=== PATIENT | female | born 1980 | race Two or more races ===

== ENCOUNTER 2018-05-21 15:01 | Emergency (ER) | payer OTHER ==
[~2018-05-21] VITALS: Ht 167.6 cm; Wt 81.2 kg
[2018-05-21 15:05] VITALS: BP 104/56
--- NOTE | 2018-05-21 15:16 | Emergency Room Report ---
History of Present Illness General Chief Complaint: General Complaint Source: Patient Present Illness HPI 37-year-old female history of alcohol abuse brought in by EMS for apparent not being able to care for herself Patient states that she has had heavy drinking since the age of 20, she states that she had vomited blood and was hospitalized at [facility] and was just discharged last week. She states that the social media marketing specialist and someone else came to her home and wanted her to be "placed on a hold"as she is not able to care for herself She denies any history of psychiatric disease, no SI or HI EMS states that she has been having swollen legs and unable to walk. Patient states that her swollen legs have been developing since her last admission and the reporting compression stockings on her. States that she is not on water pills. Only complaint patient is stating is her swollen legs at this time. States that she does not want to return [facility] but states that she is open to having a home health nurse come to her house and also physical therapist come to her house Her last drink was one month ago Allergies: Coded Allergies: LORAZEPAM (Verified Allergy, Unknown, 05/21/18) PENICILLINS (Verified Allergy, Unknown, 05/21/18) Patient History Past Medical History: see triage record Past Surgical History: none Pertinent Family History: none Social History: Reports: alcohol use Last Menstrual Period: 3 months ago Reviewed Nursing Documentation: PMH: Agreed; PSxH: Agreed Nursing Documentation-PMH Hx Asthma: Yes Hx Cerebrovascular Accident: Yes Physical Exam Vital Signs Date Time Temp Pulse Resp B/P (MAP) Pulse Ox O2 Delivery O2 Flow Rate FiO2 05/21/18 14:55 98.0 93 18 104/56 99 Room Air 98.1 Sp02 EP Interpretation: reviewed, normal General Appearance: alert, GCS 15, non-toxic, mild distress Head: normocephalic, atraumatic Eyes: bilateral eye PERRL, bilateral eye EOMI, bilateral eye scleral icterus ENT: normal ENT inspection, normal pharynx, normal voice, moist mucus membranes Neck: normal inspection, full range of motion, supple Respiratory: normal inspection, lungs clear, normal breath sounds, no respiratory distress, no retraction, no wheezing, speaking full sentences, chest symmetrical Cardiovascular #1: normal inspection, regular rate, rhythm, normal capillary refill Cardiovascular #2: 2+ radial (R), 2+ radial (L) Gastrointestinal: normal inspection, non tender, soft, non-distended, no guarding Musculoskeletal: other - 2+ edema bilateral lower extremities no calf tenderness full range of motion nontender Neurologic: normal inspection, alert, oriented x3, responsive, motor strength/ tone normal, sensory intact, normal gait, speech normal Psychiatric: normal inspection, judgement/insight normal, memory normal Skin: normal inspection, normal color, no rash, warm/dry, well hydrated, normal turgor Medical Decision Making Diagnostic Impression: Primary Impression: Anemia Additional Impressions: Coagulopathy History of alcohol abuse UTI (urinary tract infection) Hypokalemia ER Course 37-year-old female history of alcohol abuse, brought in by EMS for apparent not being able to care for herself DDX: Swollen legs: Possible secondary to fluid overload/possible liver cirrhosis from alcoholism Dehydrational electrolyte disturbance. At this time not exhibiting any psychiatric signs or symptoms Plan: Obtain labs, ua, EKG, CXR Vascular studies ER course: pt given potassium supplementation also ceftriaxone for UTI Disposition: Patient is to be xferred 2/[address] Whyte who has accepted pt for admission Please note that this Emergency Department Report was dictated using [employer] shift lead technology software, occasionally this can lead to erroneous entry secondary to interpretation by the dictation equipment. EKG Diagnostic Results EP Interpretation: Yes Rate: normal Rhythm: NSR ST Segments: No acute changes ASA given to patient: No Rhythm Strip EP Interpretation: Yes Rate: 88 Rhythm: NSR, no PVCs, no ectopy Chest X-ray CXR: Ordered: Yes 1 view Indication weakness EP interpretation: Yes Interpretation: mild cardiomegaly Impression: No acute disease Electronically signed by Gio Lopez MD Laboratory Tests Test 05/21/18 15:40 05/21/18 15:45 White Blood Count 7.6 K/UL (4.8-10.8) Red Blood Count 2.59 M/UL (4.20-5.40) L Hemoglobin 8.2 G/DL (12.0-16.0) L Hematocrit 25.8 % (37.0-47.0) L Mean Corpuscular Volume 99 FL (80-99) Mean Corpuscular Hemoglobin 31.7 PG (27.0-31.0) H Mean Corpuscular Hemoglobin Concent 32.0 G/DL (32.0-36.0) Red Cell Distribution Width 14.8 % (11.6-14.8) Platelet Count 83 K/UL (150-450) L Mean Platelet Volume 8.3 FL (6.5-10.1) Neutrophils (%) (Auto) % (45.0-75.0) Lymphocytes (%) (Auto) % (20.0-45.0) Monocytes (%) (Auto) % (1.0-10.0) Eosinophils (%) (Auto) % (0.0-3.0) Basophils (%) (Auto) % (0.0-2.0) Differential Total Cells Counted 100 Neutrophils % (Manual) 62 % (45-75) Lymphocytes % (Manual) 26 % (20-45) Monocytes % (Manual) 9 % (1-10) Eosinophils % (Manual) 2 % (0-3) Basophils % (Manual) 1 % (0-2) Band Neutrophils 0 % (0-8) Platelet Estimate Decreased L Platelet Morphology Normal Hypochromasia 1+ Anisocytosis 1+ Prothrombin Time 19.2 SEC (9.30-11.50) H Prothrombin Time INR 1.9 (0.9-1.1) H PTT 37 SEC (23-33) H Sodium Level 137 MMOL/L (136-145) Potassium Level 2.5 MMOL/L (3.5-5.1) *L Chloride Level 105 MMOL/L (98-107) Carbon Dioxide Level 25 MMOL/L (21-32) Anion Gap 5 mmol/L (5-15) Blood Urea Nitrogen 2 mg/dL (7-18) L Creatinine 0.7 MG/DL (0.55-1.30) Estimate Glomerular Filtration Rate > 60 mL/min (>60) Glucose Level 74 MG/DL (74-106) Calcium Level 8.1 MG/DL (8.5-10.1) L Total Bilirubin 5.3 MG/DL (0.2-1.0) H Direct Bilirubin 3.9 MG/DL (0.0-0.3) H Aspartate Amino Transferase (AST) 56 U/L (15-37) H Alanine Aminotransferase (ALT) 28 U/L (12-78) Alkaline Phosphatase 144 U/L (46-116) H Total Creatine Kinase 69 U/L (26-308) Pro-B-Type Natriuretic Peptide 429 pg/mL (0-125) H Total Protein 6.2 G/DL (6.4-8.2) L Albumin 1.8 G/DL (3.4-5.0) L Globulin 4.4 g/dL Albumin/Globulin Ratio 0.4 (1.0-2.7) L Urine Color Yellow Urine Appearance Clear Urine pH 8 (4.5-8.0) Urine Specific [place] 1.010 (1.005-1.035) Urine Protein Negative (NEGATIVE) Urine Glucose (UA) Negative (NEGATIVE) Urine Ketones Negative (NEGATIVE) Urine Occult Blood Negative (NEGATIVE) Urine Nitrite Negative (NEGATIVE) Urine Bilirubin Negative (NEGATIVE) Urine Urobilinogen 4 MG/DL (0.0-1.0) H Urine Leukocyte Esterase 2+ (NEGATIVE) H Urine RBC 0-2 /HPF (0 - 2) Urine WBC 5-10 /HPF (0 - 2) H Urine Squamous Epithelial Cells Moderate /LPF (NONE/OCC) H Urine Amorphous Sediment Few /LPF (NONE) H Urine Bacteria Moderate /HPF (NONE) H Urine HCG, Qualitative Negative (NEGATIVE) Last Vital Signs Date Time Temp Pulse Resp B/P (MAP) Pulse Ox O2 Delivery O2 Flow Rate FiO2 05/21/18 14:55 98.0 93 18 104/56 99 Room Air 98.1 Disposition: ER T-[facility] Condition: Serious RetinoGio M.D. May 21, 2018 15:16
--- NOTE | 2018-05-21 15:51 | Diagnostic Imaging Report ---
Indication: Chest pain Technique: XRAY Chest 1v Comparison: None Findings: Heart size within normal limits for technique. There is linear opacity at the left base which may be related to subsegmental atelectasis. No pleural effusion or pneumothorax. No acute osseous abnormality. IMPRESSION: Linear opacity at the left base possibly related to subsegmental atelectasis. Clinical correlation/follow-up recommended to exclude the possibility of developing infectious infiltrate.
[2018-05-21 16:08] LABS: HEMATOCRIT 25.8 % (37.0-47.0); HEMOGLOBIN 8.2 G/DL (12.0-16.0); MEAN CORPUSCULAR VOLUME 99 FL (80-99); PLATELET COUNT 83 K/UL (150-450); RED BLOOD COUNT 2.59 M/UL (4.20-5.40); RED CELL DISTRIBUTION WIDTH 14.8 % (11.6-14.8); WHITE BLOOD COUNT 7.6 K/UL (4.8-10.8)
[2018-05-21 16:24] LABS: INR 1.9 (0.9-1.1)
[2018-05-21 16:31] LABS: APPEARANCE,URINE CLEAR; BILIRUBIN, URINE NEGATIVE (NEGATIVE); GLUCOSE, URINE (UA) NEGATIVE (NEGATIVE); KETONES,URINE NEGATIVE (NEGATIVE); LEUKOCYTE ESTERASE ,URINE 2+ (NEGATIVE); NITRITE,URINE NEGATIVE (NEGATIVE); PH,URINE 8 (4.5-8.0); PROTEIN,URINE NEGATIVE (NEGATIVE); UROBILINOGEN,URINE 4 MG/DL (0.0-1.0)
[2018-05-21 16:33] LABS: COLOR,URINE YELLOW
[2018-05-21 16:38] LABS: ALANINE AMINOTRANSFERASE 28 U/L (12-78); ALBUMIN 1.8 G/DL (3.4-5.0); ALBUMIN/GLOBULIN RATIO 0.4 (1.0-2.7); ALKALINE PHOSPHATASE 144 U/L (46-116); ANION GAP 5 mmol/L (5-15); ASPARTATE AMINO TRANSFERASE 56 U/L (15-37); BILIRUBIN,TOTAL 5.3 MG/DL (0.2-1.0); BLOOD UREA NITROGEN 2 mg/dL (7-18); CALCIUM 8.1 MG/DL (8.5-10.1); CARBON DIOXIDE 25 MMOL/L (21-32); CHLORIDE 105 MMOL/L (98-107); CREATINE KINASE 69 U/L (26-308); CREATININE 0.7 MG/DL (0.55-1.30); SODIUM 137 MMOL/L (136-145)
[2018-05-21 16:40] LABS: POTASSIUM 2.5 MMOL/L (3.5-5.1)
[2018-05-21 16:43] LABS: BILIRUBIN,DIRECT 3.9 MG/DL (0.0-0.3)
[2018-05-21 16:59] VITALS: BP 110/62
[2018-05-21] MEDS ORDERED: cefTRIAXone 1 GM in NS 55 ML IVPB ONE (17:00)
[2018-05-21 18:45] VITALS: BP 112/66
[2018-05-21 20:18] VITALS: BP 110/61
[2018-05-21 20:20] VITALS: BP 110/61
--- NOTE | 2018-05-22 11:00 | Diagnostic Imaging Report ---
APPROVED REPORT CPT Code: 29054 Present Symptoms Lower Extremity Pain: Bilateral BILATERAL: Imaging reveals a patent deep venous system bilaterally. There is no evidence of thrombus within the femoral, popliteal or tibial segments. The greater saphenous veins are also within normal limits. Doppler indicates normal spontaneous flow within these segments.
--- NOTE | 2018-05-22 16:24 | Cardiology Report ---
APPROVED REPORT EKG Measurement Heart [id number] Normal sinus rhythm Nonspecific T wave abnormality Prolonged QT Abnormal ECG
== END 2018-05-21 20:20 | disposition short-term general hospital (02) ==
LOC: EDBD 15:01 → EMR 16:12
DX: D64.9 Anemia, unspecified (principal); N39.0 Urinary tract infection, site not specified; E87.6 Hypokalemia; D68.9 Coagulation defect, unspecified; F10.10 Alcohol abuse, uncomplicated; J45.909 Unspecified asthma, uncomplicated; Z86.73 Personal history of transient ischemic attack (TIA), and cerebral infarction without residual deficits; Z88.0 Allergy status to penicillin; Z88.8 Allergy status to other drugs, medicaments and biological substances
CPT/HCPCS: 36415; 71045; 80053; 81003; 81025; 82248; 82550; 83880; 85007; 85025; 85610; 85730; 87086; 87181; 93005; 93970; 96365; 96367; 99283; J0696; J3480; J8499

== ENCOUNTER 2018-07-16 02:22 | Inpatient (IN) | payer OTHER ==
[2018-07-16] VITALS (7 sets, daily range): BP systolic 114–133; BP diastolic 59–81
[~2018-07-16] VITALS: Ht 175.3 cm; Wt 122.9 kg
--- NOTE | 2018-07-16 02:35 | Emergency Room Report ---
History of Present Illness General Chief Complaint: Altered Level of Consciousness Source: Family Member, EMS Present Illness HPI According to family members patient had a ground-level fall. She's been acting strangely after that. Paramedics stated she was oriented to person and events but had to be asked 5 times where she is. They transported the patient BLS to our facility. She has a history of alcohol ingestion. In addition there is a prior history of stroke. The patient is not answering questions at this time. Patient was evaluated here in May. At that time she had hypokalemia, UTI, anemia, UGI bleed and evidence of liver failure with edema. She was transferred to another hospital. Mom states she did not get blood. 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 Mom also states no more vomiting of blood or back stools. No recent seizures. Mom unsure when last EtOH was. Patient unable to answer questions. Allergies: Coded Allergies: LORAZEPAM (Verified Allergy, Unknown, 05/21/18) PENICILLINS (Verified Allergy, Unknown, 05/21/18) Patient History Limited by: medical condition Past Medical History: see triage record, old chart reviewed Social History: Reports: alcohol use Social History Narrative lives with her mother Last Menstrual Period: unknown Reviewed Nursing Documentation: PMH: Agreed; PSxH: Agreed Nursing Documentation-PMH Hx Asthma: Yes Hx Cerebrovascular Accident: Yes Review of Systems All Other Systems: limited Physical Exam Vital Signs Date Time Temp Pulse Resp B/P (MAP) Pulse Ox O2 Delivery O2 Flow Rate FiO2 07/16/18 02:14 98.5 100 18 98 Room Air 98.4 Sp02 EP Interpretation: reviewed, normal General Appearance: no apparent distress, lethargic, other - Morning Head: normocephalic, atraumatic Eyes: bilateral eye PERRL, bilateral eye scleral icterus ENT: moist mucus membranes Neck: supple Respiratory: lungs clear, normal breath sounds Cardiovascular #1: regular rate, rhythm, edema Cardiovascular #2: 2+ radial (R) Gastrointestinal: normal inspection, normal bowel sounds, non tender, distended Rectal: heme positive stool - trace = brown Musculoskeletal: back normal, gait/station normal, normal range of motion Neurologic: motor weakness - diffuse, other - moaning and not answering questions. Not open eyes to command Psychiatric: other - lethargic Skin: warm/dry, jaundice Medical Decision Making Diagnostic Impression: Primary Impression: Altered level of consciousness Additional Impressions: Liver failure Qualified Codes: K72.01 - Acute and subacute hepatic failure with coma Anemia Qualified Codes: D64.9 - Anemia, unspecified GI bleed Qualified Codes: K92.2 - Gastrointestinal hemorrhage, unspecified Hepatic encephalopathy Hypokalemia ER Course Patient presents with altered level of consciousness after ground-level fall. Differential includes brain bleed, contusion, acute alcohol intoxication, other toxic substances, electrolyte imbalance, hepatic encephalopathy amongst others. The patient will be evaluated with EKG, CT the head, chest x-ray and labs. She will receive IV hydration. She is protecting her airway at this time. Thiamine given. Protonix given. Vitamin K given. Blood bank made aware of type and Rh. WBC slightly high. H/H low (similar to May). Potassium critically low. Patient made non-transferrable. Discussed with Dr. Carrillo. Ammonia high. Lactulose give. Potassium given. NG tube passed as not taking oral meds voluntarily. Confirmed by abd film. Admit telemetry Dr. Choudhury. Laboratory Tests Test 07/16/18 03:00 07/16/18 03:40 White Blood Count 12.4 K/UL (4.8-10.8) H Red Blood Count 2.50 M/UL (4.20-5.40) L Hemoglobin 8.0 G/DL (12.0-16.0) L Hematocrit 24.2 % (37.0-47.0) L Mean Corpuscular Volume 97 FL (80-99) Mean Corpuscular Hemoglobin 31.9 PG (27.0-31.0) H Mean Corpuscular Hemoglobin Concent 33.0 G/DL (32.0-36.0) Red Cell Distribution Width 15.4 % (11.6-14.8) H Platelet Count 75 K/UL (150-450) L Mean Platelet Volume 8.0 FL (6.5-10.1) Neutrophils (%) (Auto) % (45.0-75.0) Lymphocytes (%) (Auto) % (20.0-45.0) Monocytes (%) (Auto) % (1.0-10.0) Eosinophils (%) (Auto) % (0.0-3.0) Basophils (%) (Auto) % (0.0-2.0) Sodium Level 140 MMOL/L (136-145) Potassium Level 1.5 MMOL/L (3.5-5.1) *L Chloride Level 100 MMOL/L (98-107) Carbon Dioxide Level 34 MMOL/L (21-32) H Anion Gap 6 mmol/L (5-15) Blood Urea Nitrogen 3 mg/dL (7-18) L Creatinine 0.9 MG/DL (0.55-1.30) Estimate Glomerular Filtration Rate > 60 mL/min (>60) Glucose Level 110 MG/DL (74-106) H Calcium Level 7.9 MG/DL (8.5-10.1) L Total Bilirubin 18.1 MG/DL (0.2-1.0) H Direct Bilirubin 12.7 MG/DL (0.0-0.3) H Aspartate Amino Transferase (AST) 104 U/L (15-37) H Alanine Aminotransferase (ALT) 17 U/L (12-78) Alkaline Phosphatase 140 U/L (46-116) H Ammonia 140 umol/L (11-32) H Total Creatine Kinase 105 U/L (26-308) Total Protein 7.1 G/DL (6.4-8.2) Albumin 1.7 G/DL (3.4-5.0) L Globulin 5.4 g/dL Albumin/Globulin Ratio 0.3 (1.0-2.7) L Salicylates Level < 0.2 ug/mL (2.8-20) L Acetaminophen Level < 2 MCG/ML (10-30) L Serum Alcohol < 3 mg/dL Urine Color Yellow Urine Appearance Clear Urine pH 8 (4.5-8.0) Urine Specific [place] 1.010 (1.005-1.035) Urine Protein 1+ (NEGATIVE) H Urine Glucose (UA) Negative (NEGATIVE) Urine Ketones Negative (NEGATIVE) Urine Blood 1+ (NEGATIVE) H Urine Nitrite Negative (NEGATIVE) Urine Bilirubin 3+ (NEGATIVE) H Urine Ictotest Positive (NEGATIVE) Urine Urobilinogen 12 MG/DL (0.0-1.0) H Urine Leukocyte Esterase 1+ (NEGATIVE) H Urine RBC 2-4 /HPF (0 - 2) H Urine WBC 0-2 /HPF (0 - 2) Urine Squamous Epithelial Cells Few /LPF (NONE/OCC) Urine Bacteria None /HPF (NONE) Urine HCG, Qualitative Negative (NEGATIVE) Urine Opiates Screen Negative (NEGATIVE) Urine Barbiturates Screen Negative (NEGATIVE) Phencyclidine (PCP) Screen Negative (NEGATIVE) Urine Amphetamines Screen Negative (NEGATIVE) Urine Benzodiazepines Screen Negative (NEGATIVE) Urine Cocaine Screen Negative (NEGATIVE) Urine Marijuana (THC) Screen Negative (NEGATIVE) EKG Diagnostic Results Rate: normal Rhythm: NSR ST Segments: no acute changes Rhythm Strip Diag. Results EP Interpretation: yes Rhythm: NSR, no PVC's, no ectopy Chest X-Ray Diagnostic Results Chest X-Ray Diagnostic Results : Chest X-Ray Ordered: Yes # of Views/Limited/Complete: 1 View Indication: Other EP Interpretation: Yes Interpretation: no consolidation, no pneumothorax, other - inc cor and R effusion Impression: Other Electronically Signed by: Electronically signed by Jean Ríos MD Other X-Ray Diagnostic Results Other X-Ray Diagnostic Results : # of Views/Limited Vs Complete: 1 View Indication: Other EP Interpretation: Yes Interpretation: nonspecific bowel gas, no sbo, other - NG in stomach Impression: Other Electronically Signed by: Jean Ríos MD CT/MRI/US Diagnostic Results CT/MRI/US Diagnostic Results : Imaging Test Ordered: head Impression no bleed Status: improved Disposition: ADMITTED INPATIENT Condition: Serious Jean Ríos M.D. Jul 16, 2018 02:35
[2018-07-16 03:06] LABS: HEMATOCRIT 24.2 % (37.0-47.0); MEAN CORPUSCULAR VOLUME 97 FL (80-99); PLATELET COUNT 75 K/UL (150-450); RED CELL DISTRIBUTION WIDTH 15.4 % (11.6-14.8); WHITE BLOOD COUNT 12.4 K/UL (4.8-10.8)
[2018-07-16] MEDS: Thiamine HCl 100 MG in D5W 55 ML IVPB SCH (03:12)
[2018-07-16] MEDS ORDERED: Phytonadione 10 mg/mL 1ml amp SUBQ ONE (03:30)
[2018-07-16] MEDS ORDERED: Pantoprazole Inj IVP ONE (03:30)
[2018-07-16 03:36] LABS: ALANINE AMINOTRANSFERASE 17 U/L (12-78); ALBUMIN 1.7 G/DL (3.4-5.0); ALBUMIN/GLOBULIN RATIO 0.3 (1.0-2.7); ALKALINE PHOSPHATASE 140 U/L (46-116); ANION GAP 6 mmol/L (5-15); ASPARTATE AMINO TRANSFERASE 104 U/L (15-37); BILIRUBIN,TOTAL 18.1 MG/DL (0.2-1.0); BLOOD UREA NITROGEN 3 mg/dL (7-18); CALCIUM 7.9 MG/DL (8.5-10.1); CARBON DIOXIDE 34 MMOL/L (21-32); CHLORIDE 100 MMOL/L (98-107); CREATINE KINASE 105 U/L (26-308); CREATININE 0.9 MG/DL (0.55-1.30); SODIUM 140 MMOL/L (136-145)
--- NOTE | 2018-07-16 03:38 | Diagnostic Imaging Report ---
EXAM: CT Head Without Intravenous Contrast CLINICAL HISTORY: ALOC TECHNIQUE: Axial computed tomography images of the head/brain without intravenous contrast. CTDI is 0.15, 70.38 mGy and DLP is 1301 mGy-cm. One or more of the following dose reduction techniques were used: automated exposure control, adjustment of the mA and/or kV according to patient size, use of iterative reconstruction technique. COMPARISON: No relevant prior studies available. FINDINGS: Brain: No acute infarct, hemorrhage, mass or edema. No significant white matter disease. Ventricles: Unremarkable. No ventriculomegaly. Bones/joints: No acute osseous and abnormality. Soft tissues: Unremarkable. Sinuses: Sinuses are patent. Mastoid air cells: Unremarkable as visualized. No mastoid effusion. IMPRESSION: No acute findings.
[2018-07-16 03:43] LABS: POTASSIUM 1.5 MMOL/L (3.5-5.1)
[2018-07-16 03:44] LABS: BILIRUBIN,DIRECT 12.7 MG/DL (0.0-0.3)
[2018-07-16] MEDS ORDERED: Lactulose 20gm/30ml UDC ORAL ONE (03:45)
[2018-07-16 04:21] LABS: APPEARANCE,URINE CLEAR; BILIRUBIN, URINE 3+ (NEGATIVE); GLUCOSE, URINE (UA) NEGATIVE (NEGATIVE); KETONES,URINE NEGATIVE (NEGATIVE); LEUKOCYTE ESTERASE ,URINE 1+ (NEGATIVE); NITRITE,URINE NEGATIVE (NEGATIVE); PH,URINE 8 (4.5-8.0); PROTEIN,URINE 1+ (NEGATIVE); UROBILINOGEN,URINE 12 MG/DL (0.0-1.0)
[2018-07-16 04:27] LABS: COLOR,URINE YELLOW
[2018-07-16] MEDS ORDERED: Lactulose 20gm/30ml UDC NG STA (05:55)
[2018-07-16 08:50] LABS: PHOSPHORUS 1.5 MG/DL (2.5-4.9)
[2018-07-16 09:14] LABS: POTASSIUM 1.5 MMOL/L (3.5-5.1)
[2018-07-16 09:35] LABS: INR 2.2 (0.9-1.1)
[2018-07-16] MEDS: Lactulose 20gm/30ml UDC ORAL SCH ×3 (13:01→20:59)
--- NOTE | 2018-07-16 13:13 | GI Initial Consult Note ---
History of Present Illness General Date patient seen: Jul 16, 2018 Time patient seen: 13:08 Reason for Hospitalization: Altered Level of Consciousness Referring physician: BRENT Reason for Consultation: AMS Present Illness HPI According to family members patient had a ground-level fall. She's been acting strangely after that. Paramedics stated she was oriented to person and events but had to be asked 5 times is to where she is. They transported the patient BLS to our facility. She has a history of alcohol ingestion. In addition there is a prior history of stroke. The patient is not answering questions at this time. Patient was evaluated here in May. At that time she had hypokalemia, UTI, anemia and evidence of liver failure with edema. She was transferred to another hospital. Mom states she did not get blood. Mom also states no more vomiting of blood or back stools. GI consulted for AMS. ROS limited. All information obtained from chart and mother at bedside. Pt seen, awake AMS NAD with no active s/sx of N/V/D. Per her mother, the patient is a chronic ETOH abuse, drinks approximately a bottle of alcohol a day. Last drink a few days prior. Unable to obtain any other history. Labs reviewed, show mild leukocytosis, anemia, and elevated LFTs. No known history of endoscopy/colonoscopy. Med list reviewed/reconciled: Yes Allergies: Coded Allergies: LORAZEPAM (Verified Allergy, Unknown, 05/21/18) PENICILLINS (Verified Allergy, Unknown, 05/21/18) Patient History Limited by: medical condition History Provided By: Family Member, Medical Record PMH Narrative Limited by: medical condition Past Medical History: see triage record Social History: Reports: alcohol use Social History Narrative lives with her mother Last Menstrual Period: unknown Reviewed Nursing Documentation: PMH: Agreed; PSxH: Agreed Nursing Documentation-PMH Hx Asthma: Yes Hx Cerebrovascular Accident: Yes Social History: Reports: alcohol use Review of Systems All Other Systems: negative except mentioned in HPI Physical Exam Vital Signs Date Time Temp Pulse Resp B/P (MAP) Pulse Ox O2 Delivery O2 Flow Rate FiO2 07/16/18 02:14 98.5 100 18 98 Room Air 98.4 07/16/18 02:25 127/80 Sp02 EP Interpretation: reviewed, normal Labs Laboratory Tests Test 07/16/18 03:00 07/16/18 03:40 White Blood Count 12.4 K/UL (4.8-10.8) H Red Blood Count 2.50 M/UL (4.20-5.40) L Hemoglobin 8.0 G/DL (12.0-16.0) L Hematocrit 24.2 % (37.0-47.0) L Mean Corpuscular Volume 97 FL (80-99) Mean Corpuscular Hemoglobin 31.9 PG (27.0-31.0) H Mean Corpuscular Hemoglobin Concent 33.0 G/DL (32.0-36.0) Red Cell Distribution Width 15.4 % (11.6-14.8) H Platelet Count 75 K/UL (150-450) L Mean Platelet Volume 8.0 FL (6.5-10.1) Neutrophils (%) (Auto) % (45.0-75.0) Lymphocytes (%) (Auto) % (20.0-45.0) Monocytes (%) (Auto) % (1.0-10.0) Eosinophils (%) (Auto) % (0.0-3.0) Basophils (%) (Auto) % (0.0-2.0) Prothrombin Time 22.7 SEC (9.30-11.50) H Prothromb Time International Ratio 2.2 (0.9-1.1) H Activated Partial Thromboplast Time 44 SEC (23-33) H Sodium Level 140 MMOL/L (136-145) Potassium Level 1.5 MMOL/L (3.5-5.1) *L Chloride Level 100 MMOL/L (98-107) Carbon Dioxide Level 34 MMOL/L (21-32) H Anion Gap 6 mmol/L (5-15) Blood Urea Nitrogen 3 mg/dL (7-18) L Creatinine 0.9 MG/DL (0.55-1.30) Estimat Glomerular Filtration Rate > 60 mL/min (>60) Glucose Level 110 MG/DL (74-106) H Calcium Level 7.9 MG/DL (8.5-10.1) L Phosphorus Level 1.5 MG/DL (2.5-4.9) L Magnesium Level 0.9 MG/DL (1.8-2.4) *L Total Bilirubin 18.1 MG/DL (0.2-1.0) H Direct Bilirubin 12.7 MG/DL (0.0-0.3) H Aspartate Amino Transf (AST/SGOT) 104 U/L (15-37) H Alanine Aminotransferase (ALT/SGPT) 17 U/L (12-78) Alkaline Phosphatase 140 U/L (46-116) H Ammonia 140 umol/L (11-32) H Total Creatine Kinase 105 U/L (26-308) Total Protein 7.1 G/DL (6.4-8.2) Albumin 1.7 G/DL (3.4-5.0) L Globulin 5.4 g/dL Albumin/Globulin Ratio 0.3 (1.0-2.7) L Salicylates Level < 0.2 ug/mL (2.8-20) L Acetaminophen Level < 2 MCG/ML (10-30) L Serum Alcohol < 3 mg/dL Urine Color Yellow Urine Appearance Clear Urine pH 8 (4.5-8.0) Urine Specific [place] 1.010 (1.005-1.035) Urine Protein 1+ (NEGATIVE) H Urine Glucose (UA) Negative (NEGATIVE) Urine Ketones Negative (NEGATIVE) Urine Blood 1+ (NEGATIVE) H Urine Nitrite Negative (NEGATIVE) Urine Bilirubin 3+ (NEGATIVE) H Urine Ictotest Positive (NEGATIVE) Urine Urobilinogen 12 MG/DL (0.0-1.0) H Urine Leukocyte Esterase 1+ (NEGATIVE) H Urine RBC 2-4 /HPF (0 - 2) H Urine WBC 0-2 /HPF (0 - 2) Urine Squamous Epithelial Cells Few /LPF (NONE/OCC) Urine Bacteria None /HPF (NONE) Urine HCG, Qualitative Negative (NEGATIVE) Urine Opiates Screen Negative (NEGATIVE) Urine Barbiturates Screen Negative (NEGATIVE) Phencyclidine (PCP) Screen Negative (NEGATIVE) Urine Amphetamines Screen Negative (NEGATIVE) Urine Benzodiazepines Screen Negative (NEGATIVE) Urine Cocaine Screen Negative (NEGATIVE) Urine Marijuana (THC) Screen Negative (NEGATIVE) General Appearance: well appearing, no apparent distress, alert, obese Head: normocephalic EENT: PERRL/EOMI, normal ENT inspection Neck: supple Respiratory: normal breath sounds, no respiratory distress Cardiovascular: normal rate Gastrointestinal: normal inspection, non tender, soft, normal bowel sounds, non -distended Rectal: deferred Genitourinary: no CVA tenderness Musculoskeletal: normal inspection, back normal Neurologic: normal inspection, alert, oriented x3, responsive Psychiatric: normal inspection, judgement/insight normal, memory normal Skin: normal inspection, normal color, no rash, warm/dry, palpation normal, well hydrated Lymphatic: normal inspection, no adenopathy Current Medications Current Medications Medications (Trade) Dose Ordered Sig/Abner Route PRN Reason Start Time Stop Time Status Last Admin Dose Admin Folic Acid (Folate) 1 mg DAILY ORAL 07/16/18 09:00 08/15/18 08:59 07/16/18 10:00 Lactulose (Cephulac) 20 gm FOUR TIMES A DAY ORAL 07/16/18 13:00 08/15/18 12:59 07/16/18 13:01 Levofloxacin 100 ml @ 100 mls/hr Q24H IVPB 07/16/18 10:30 07/23/18 10:29 07/16/18 13:00 Prednisone (predniSONE) 40 mg DAILY ORAL 07/17/18 09:00 08/16/18 08:59 Rifaximin (Xifaxan) 550 mg EVERY 12 HOURS ORAL 07/16/18 09:00 07/23/18 08:59 07/16/18 10:00 Thiamine HCl 100 mg/Dextrose 56 ml @ 112 mls/hr Q24H IVPB 07/16/18 03:15 08/15/18 03:14 07/16/18 03:12 GI: Plan Problems: (1) GI bleed (2) Hypokalemia (3) Hepatic encephalopathy (4) Anemia (5) Altered level of consciousness (6) Liver failure Plan Discriminant function calculated >> poor prognosis, will start prednisone 40mg daily NGT placement electrolyte correction lactulose + xifaxan ppi prn transfusions fu abdominal US trend LFTs will need EGD to evaluate varices when stable abx fu labs, hepatitis panel Discussed with Dr. Rodriguez. Thank you for this patient referral, we will follow. The patient was seen and examined at bedside and all new and available data was reviewed in the patients chart. I agree with the above findings, impression and plan. (Patient seen earlier today. Signature stamp does not reflect patient encounter time.). - MD Vi Fishman,Yessi-Alessio WIRELESS DEVELOPMENT MANAGER Jul 16, 2018 13:13
--- NOTE | 2018-07-16 14:00 | Consultation ---
DATE OF CONSULTATION: 07/16/2018 CONSULTING PHYSICIAN: Amos Pinon M.D. REASON FOR CONSULTATION: 1. Metabolic alkalosis. 2. Hypokalemia. HISTORY OF PRESENT ILLNESS: The patient is a 37-year-old female, who had been here at [facility] back in May and was diagnosed with hepatic encephalopathy, liver failure, and hypokalemia and was transferred to another hospital. The patient now returns again encephalopathic with elevated ammonia and severely low potassium level of 1.6 and a serum bicarbonate of 34. The patient has a nasogastric tube in place, is agitated and wants to go home. She admits to continuing to drink on a daily basis. Her LFTs and total bilirubin remained elevated with ammonia level of 140, creatinine is 0.9, and BUN of 3. ALLERGIES: Lorazepam and penicillins. PAST MEDICAL HISTORY: 1. Liver failure. 2. Anemia. 3. UTI. 4. Hypokalemia. SOCIAL HISTORY: Continued alcohol dependency. No illicit drug use. FAMILY HISTORY: Positive for hypertension. REVIEW OF SYSTEMS: NEUROLOGIC: The patient denies headache, change in vision, syncope, or presyncopal episodes. She is slightly confused. CARDIOVASCULAR: No current chest pain, palpitations, or angina. PULMONARY: No difficulty breathing, productive cough, or sputum. GASTROINTESTINAL/GENITOURINARY: No change in urinary or bowel habits. No nausea, vomiting, or diarrhea. ENDOCRINOLOGY: No night sweats, fevers, or chills. LABORATORY DATA: Laboratories dated July 16, 2018, potassium 1.5, sodium 140, calcium 7.9. Ammonia level 140. Albumin 1.7. Hemoglobin 8, white cell count 12.4, and platelet count 75. PHYSICAL EXAMINATION: VITAL SIGNS: Blood pressure 121/75, respiratory rate 21, pulse 98, temperature 98.3, and 98% oxygen saturation on room air. GENERAL: The patient awake, seemingly alert, and agitated. HEENT: Extraocular muscles intact. No lymphadenopathy noted. CARDIOVASCULAR: S1, S2. No rubs or gallops. PULMONARY: Mild upper rhonchi. Fair air movement in all mark. ABDOMEN: Obese, distended. Nontender. Fair bowel sounds. EXTREMITIES: There is 1+ pitting edema bilaterally. ASSESSMENT AND PLAN: 1. Metabolic acidosis secondary to maintenance from hypokalemia. At this time, we will continue aggressive potassium supplementation to correct underlying metabolic alkalosis. 2. Severe hypokalemia. The patient approximately 200 mEq or more depleted of potassium. Her hypokalemia most likely secondary to refeeding syndrome, patient alcoholic, and poor solid intake. We will check magnesium and phosphorus levels and replace accordingly. NG tube in place. 3. Encephalopathy secondary to hepatic failure with elevated ammonia. At this time, it was unclear whether or not the patient was taking lactulose at home, contributing worsening to her hypokalemia. At this time, we will continue to correct underlying electrolytes as the patient is being giving lactulose. 4. Hepatic failure. Secondary to continued alcohol consumption and dependence. Defer management to Gastroenterology. Let me take this opportunity to thank Dr. Choudhury, for allowing me to assist in the care of this patient during her hospitalization. Amos Pinon MD DR: MIRTA JOB#: [id number] CC:
--- NOTE | 2018-07-16 14:19 | Diagnostic Imaging Report ---
Indication: Shortness of breath Technique: One view of the chest Comparison: 05/21/2018 Findings: Positioning is suboptimal. Patient is rotated to the left. According to the technologist, patient was unable to cooperate optimally for positioning. Allowing for overlapping soft tissue and positioning, lungs and pleural spaces are probably clear. The heart is upper limits normal in size. No significant interim change Impression: No definite acute process
--- NOTE | 2018-07-16 14:33 | Diagnostic Imaging Report ---
Indication: Post nasogastric tube placement Technique: Supine view of the upper abdomen Comparison: none Findings: There is a nasogastric tube in place, tip projecting at the level gastric body, proximal port well beyond the gastroesophageal junction. Visualized bowel gas is unremarkable Impression: Satisfactory position of nasogastric tube
--- NOTE | 2018-07-16 15:30 | Diagnostic Imaging Report ---
Indication: Abnormal liver function tests, abnormal white blood cell count, history of or failure and alcohol abuse Technique: Chambers-scale and duplex images of the upper abdomen were obtained Comparison: none Findings: Exam is somewhat limited, patient was difficult to scan due to body habitus and overlying bowel gas The liver demonstrates surface nodularity. There is ascites fluid. Partially obscured Gallbladder is surgically absent. Common bile duct measures 7 mm in diameter. No intrahepatic biliary ductal dilatation. . Liver demonstrates diffusely increased echogenicity, compatible with hepatocellular disease. No focal abnormality Portal vein and hepatic veins are patent.. However, the main and right portal veins demonstrate hepatofugal flow. Pancreas is unremarkable. The spleen is enlarged, measuring 16.4 cm long axis dimension Left kidney measures 12.7 cm in length. Right kidney measures 12 cm length. Both kidneys demonstrate normal echogenicity. There is mild fullness of the right renal collecting system. No focal abnormality . Abdominal aorta is partially obscured by bowel gas, visualized portions are non-aneurysmal . Impression: Evidence of hepatic cirrhosis, with surface nodularity an increased echogenicity Evidence of portal hypertension, with ascites, splenomegaly, and flow reversal within the main and right portal vein Evidence of prior cholecystectomy. Negative for dilated ducts Mild fullness the right renal collecting system, significance uncertain, partial downstream obstruction possible Limited exam, as described, with incomplete visualization of the pancreas and abdominal aorta
[2018-07-16] MEDS ORDERED: Potassium Chloride 50 MEQ in Sodium Chloride 500ML 550 ML IVPB SCH (17:00)
--- NOTE | 2018-07-16 23:15 | History and Physical Report ---
DATE OF ADMISSION: 07/16/2018 HISTORY OF PRESENT ILLNESS: This is a 37-year-old female with an unknown past history. Mother at bedside, reports she has history of liver problems. The patient unable to provide any clear history. Most of the history obtained from prior medical records as well as ER documentation. The patient presented with the complaint of not feeling well and complaining of pain and diffusely. There is apparently history of alcohol ingestion and a previous history of stroke. Per ER records, she was noted to have a history of liver failure and a history of UTI in the past. ALLERGIES: To lorazepam and penicillin. MEDICATIONS: Her list of home medications are not known. However, presently she is getting folic acid, lactulose, potassium, Protonix, vitamin K, thiamine, and IV fluids. PREVIOUS SURGICAL HISTORY: Not known. PHYSICAL EXAMINATION: VITAL SIGNS: Blood pressure is 120/70, heart rate is 86, respirations are 18, and O2 saturation 98% on room air. She is afebrile. GENERAL: Reveals an obese, young female. HEENT: Unremarkable. NG tube is in place. CHEST: Clear breath sounds bilaterally. ABDOMEN: Soft, nontender. There is no hepatosplenomegaly. EXTREMITIES: There is 1+ edema bilaterally. LABORATORY DATA: Lab testing shows white count 12,000, hemoglobin of 8, and platelet count 75,000. Potassium 1.5, creatinine 0.9, glucose 110, calcium 7.9. Total bilirubin 18, direct is 12. AST 104, ALT 17, and alkaline phosphatase 140. Ammonia 140. Albumin 1.7. IMPRESSION: 1. Malnutrition. 2. Hepatic failure. 3. Suspicion of alcohol abuse. 4. Severe hypokalemia. 5. Hyperglycemia. 6. Leukocytosis. 7. Anemia. DISCUSSION: The patient has multiple issues at this point in time, which are addressed below. 1. Anemia. At this time, her stool is guaiac positive. However, she is not overtly bleeding. I will monitor hemoglobin and consult GI. 2. Hypokalemia, severe. NG tube has been placed. She will receive IV and oral replacement. I will consult Nephrology to assist in this complicated process as she is severely hypokalemic. The etiology of this is unknown. 3. Suspicion of alcohol abuse. There is no clear history of alcohol; however, the AST/ALT ratio is suggestive of it. Mother was reporting she was consuming alcohol. We will investigate this further. Start thiamine and folic acid. 4. Hepatic failure. This is apparently a chronic problem. We will also consult Gastroenterology assist in this matter. I will also start lactulose. Hold off on empiric antibiotics. I do not suspect SBP. We will follow carefully. Bowen Choudhury M.D. DR: MICHELL JOB#: [id number] CC:
[2018-07-17] VITALS (7 sets, daily range): BP systolic 118–133; BP diastolic 68–83
[2018-07-17] MEDS: Thiamine HCl 100 MG in D5W 55 ML IVPB SCH (03:00)
--- NOTE | 2018-07-17 07:45 | Pulmonology Progress Note ---
Assessment/Plan Assessment/Plan 1. Malnutrition. 2. Hepatic failure. 3. Suspicion of alcohol abuse. 4. Severe hypokalemia. 5. Hyperglycemia. 6. Leukocytosis. 7. Anemia. DISCUSSION: The patient has multiple issues at this point in time, which are addressed below. 1. Anemia. At this time, her stool is guaiac positive. She is not overtly bleeding. I will monitor hemoglobin and consult GI. Hgb is 8. 2. Hypokalemia, severe. NG tube has been placed. She will receive IV and oral replacement. Seen by consult Nephrology to assist in this complicated process as she is severely hypokalemic. The etiology of this is unknown. 3. Suspicion of alcohol abuse. There is no clear history of alcohol; however, the AST/ALT ratio is suggestive of it. Mother was reporting she was consuming alcohol. I will investigate this further. Start thiamine and folic acid. 4. Hepatic failure. This is apparently a chronic problem. I will consult Gastroenterology to assist in this matter. I will also continue lactulose. Hold off on empiric antibiotics. I do not suspect SBP. I will follow carefully. Subjective Interval Events: NG in place; awake; moaning Constitutional: Reports: no symptoms HEENT: Repors: no symptoms Respiratory: Reports: no symptoms Cardiovascular: Reports: no symptoms Gastrointestinal/Abdominal: Reports: no symptoms Genitourinary: Reports: no symptoms Neurologic: Reports: no symptoms Allergies: Coded Allergies: LORAZEPAM (Verified Allergy, Unknown, 05/21/18) PENICILLINS (Verified Allergy, Unknown, 05/21/18) Objective Last 24 Hour Vital Signs Date Time Temp Pulse Resp B/P (MAP) Pulse Ox O2 Delivery O2 Flow Rate FiO2 07/17/18 04:00 96.8 77 19 133/68 (89) 94 96.8 07/17/18 04:00 91 07/17/18 00:00 97.9 89 20 129/74 (92) 95 97.9 07/17/18 00:00 96 07/16/18 21:00 Room Air 07/16/18 20:00 92 07/16/18 20:00 98.1 91 19 132/66 (88) 93 98.1 07/16/18 16:00 93 07/16/18 16:00 97.7 92 18 114/59 (77) 98 97.7 07/16/18 12:00 96.8 90 18 132/76 (94) 98 96.8 07/16/18 12:00 90 07/16/18 11:15 Room Air 07/16/18 11:09 Room Air 07/16/18 09:00 Room Air 07/16/18 08:00 96.6 88 18 133/76 (95) 96 96.6 07/16/18 08:00 87 Intake and Output 07/16/18 07/17/18 19:00 07:00 Intake Total 150 ml Output Total 250 ml Balance -100 ml Intake Oral 150 ml Output Urine Total 250 ml # Voids 1 4 # Bowel Movements 5 1 General Appearance: no acute distress HEENT: normocephalic Respiratory/Chest: chest wall non-tender, lungs clear Cardiovascular: normal peripheral pulses, normal rate Abdomen: normal bowel sounds, soft, non tender Laboratory Tests 07/16/18 13:30: Urine Opiates Screen Negative, Urine Barbiturates Screen Negative, Phencyclidine (PCP) Screen Negative, Urine Amphetamines Screen Negative, Urine Benzodiazepines Screen Negative, Urine Cocaine Screen Negative, Urine Marijuana (THC) Screen Negative 07/17/18 06:30: Prothrombin Time [Pending], Prothromb Time International Ratio [Pending], Sodium Level [Pending], Potassium Level [Pending], Chloride Level [Pending], Carbon Dioxide Level [Pending], Blood Urea Nitrogen [Pending], Creatinine [ Pending], Estimat Glomerular Filtration Rate [Pending], Glucose Level [Pending] , Calcium Level [Pending], Total Bilirubin [Pending], Aspartate Amino Transf ( AST/SGOT) [Pending], Alanine Aminotransferase (ALT/SGPT) [Pending], Alkaline Phosphatase [Pending], Ammonia [Pending], Total Protein [Pending], Albumin [ Pending], Globulin [Pending], Ceruloplasmin [Pending], Hepatitis A IgM Antibody [Pending], Hepatitis B Surface Antigen [Pending], Hepatitis B Core IgM Antibody [Pending], Hepatitis C Antibody [Pending] Current Medications Medications (Trade) Dose Ordered Sig/Abner Route PRN Reason Start Time Stop Time Status Last Admin Dose Admin Folic Acid (Folate) 1 mg DAILY ORAL 07/16/18 09:00 08/15/18 08:59 07/16/18 10:00 Lactulose (Cephulac) 20 gm FOUR TIMES A DAY ORAL 07/16/18 13:00 08/15/18 12:59 07/16/18 20:59 Levofloxacin 100 ml @ 100 mls/hr Q24H IVPB 07/16/18 10:30 07/23/18 10:29 07/16/18 13:00 Ondansetron HCl (Zofran) 4 mg Q4H PRN IVP Nausea & Vomiting 07/16/18 17:30 08/15/18 17:29 Prednisone (predniSONE) 40 mg DAILY ORAL 07/17/18 09:00 08/16/18 08:59 Rifaximin (Xifaxan) 550 mg EVERY 12 HOURS ORAL 07/16/18 09:00 07/23/18 08:59 07/16/18 20:59 Thiamine HCl 100 mg/Dextrose 56 ml @ 112 mls/hr Q24H IVPB 07/16/18 03:15 08/15/18 03:14 07/17/18 03:00 Bowen Choudhury MD Jul 17, 2018 07:45
[2018-07-17 07:49] LABS: HEMATOCRIT 22.3 % (37.0-47.0); HEMOGLOBIN 7.2 G/DL (12.0-16.0); MEAN CORPUSCULAR VOLUME 99 FL (80-99); PLATELET COUNT 79 K/UL (150-450); RED BLOOD COUNT 2.26 M/UL (4.20-5.40); RED CELL DISTRIBUTION WIDTH 15.5 % (11.6-14.8); WHITE BLOOD COUNT 13.9 K/UL (4.8-10.8)
[2018-07-17 07:55] LABS: ANION GAP 6 mmol/L (5-15); BLOOD UREA NITROGEN 7 mg/dL (7-18); CARBON DIOXIDE 33 MMOL/L (21-32); CHLORIDE 105 MMOL/L (98-107); CREATININE 0.8 MG/DL (0.55-1.30); SODIUM 144 MMOL/L (136-145)
[2018-07-17 07:56] LABS: INR 2.3 (0.9-1.1)
[2018-07-17 07:57] LABS: POTASSIUM 1.6 MMOL/L (3.5-5.1)
[2018-07-17 08:05] LABS: AMMONIA 139 umol/L (11-32)
--- NOTE | 2018-07-17 08:21 | Nephrology Progress Note ---
Assessment/Plan Assessment/Plan A/P 1) Hypok+/Mg/Phos - due to poor nutritional state from chronic alcohol abuse - large volume deficit being replaced - K+ Mg and Phos all ordered 2) Tranaminitis- liver failure- per GI 3) Alochol Abuse- thiamine and folate Subjective Date patient seen: Jul 17, 2018 Time patient seen: 08:18 ROS Limited/Unobtainable: No Constitutional: Reports: weakness Gastrointestinal/Abdominal: Reports: abdomen distended, abdominal pain Neurologic/Psychiatric: Reports: anxiety Allergies: Coded Allergies: LORAZEPAM (Verified Allergy, Unknown, 05/21/18) PENICILLINS (Verified Allergy, Unknown, 05/21/18) Subjective Patient with NG and agitated Objective Last 24 Hour Vital Signs Date Time Temp Pulse Resp B/P (MAP) Pulse Ox O2 Delivery O2 Flow Rate FiO2 07/17/18 04:00 96.8 77 19 133/68 (89) 94 96.8 07/17/18 04:00 91 07/17/18 00:00 97.9 89 20 129/74 (92) 95 97.9 07/17/18 00:00 96 07/16/18 21:00 Room Air 07/16/18 20:00 92 07/16/18 20:00 98.1 91 19 132/66 (88) 93 98.1 07/16/18 16:00 93 07/16/18 16:00 97.7 92 18 114/59 (77) 98 97.7 07/16/18 12:00 96.8 90 18 132/76 (94) 98 96.8 07/16/18 12:00 90 07/16/18 11:15 Room Air 07/16/18 11:09 Room Air 07/16/18 09:00 Room Air Intake and Output 07/16/18 07/17/18 19:00 07:00 Intake Total 150 ml Output Total 250 ml Balance -100 ml Intake Oral 150 ml Output Urine Total 250 ml # Voids 1 4 # Bowel Movements 5 1 Laboratory Tests 07/16/18 13:30: Urine Opiates Screen Negative, Urine Barbiturates Screen Negative, Phencyclidine (PCP) Screen Negative, Urine Amphetamines Screen Negative, Urine Benzodiazepines Screen Negative, Urine Cocaine Screen Negative, Urine Marijuana (THC) Screen Negative 07/17/18 06:30: White Blood Count 13.9H, Red Blood Count 2.26L, Hemoglobin 7.2L, Hematocrit 22.3L, Mean Corpuscular Volume 99, Mean Corpuscular Hemoglobin 31.8H, Mean Corpuscular Hemoglobin Concent 32.2, Red Cell Distribution Width 15.5H, Platelet Count 79L, Mean Platelet Volume 9.8, Neutrophils (%) (Auto) , Lymphocytes (%) (Auto) , Monocytes (%) (Auto) , Eosinophils (%) (Auto) , Basophils (%) (Auto) , Neutrophils % (Manual) [Pending], Lymphocytes % (Manual) [Pending], Platelet Estimate [Pending], Platelet Morphology [Pending], Prothrombin Time 23.5H, Prothromb Time International Ratio 2.3H, Sodium Level [ Pending], Potassium Level [Pending], Chloride Level [Pending], Carbon Dioxide Level [Pending], Anion Gap 6, Blood Urea Nitrogen [Pending], Creatinine [Pending ], Estimat Glomerular Filtration Rate [Pending], Glucose Level [Pending], Calcium Level [Pending], Total Bilirubin [Pending], Aspartate Amino Transf (AST/ SGOT) [Pending], Alanine Aminotransferase (ALT/SGPT) [Pending], Alkaline Phosphatase [Pending], Ammonia 139H, Total Protein [Pending], Albumin [Pending] , Globulin [Pending], Ceruloplasmin [Pending], Hepatitis A IgM Antibody [Pending ], Hepatitis B Surface Antigen [Pending], Hepatitis B Core IgM Antibody [Pending ], Hepatitis C Antibody [Pending] Height (Feet): 5 Height (Inches): 9.00 Weight (Pounds): 248 General Appearance: WD/WN, no apparent distress EENT: PERRL/EOMI Neck: normal alignment, supple Cardiovascular: normal rate, regular rhythm Respiratory/Chest: lungs clear, normal breath sounds Abdomen: non tender, soft Edema: 1+ Arm (L), 1+ Arm (R), 1+ Leg (L), 1+ Leg (R), 1+ Pedal (L), 1+ Pedal ( R), 1+ Generalized Amos Pinon MD Jul 17, 2018 08:21
[2018-07-17] MEDS: Lactulose 20gm/30ml UDC ORAL SCH ×4 (09:11→21:05)
[2018-07-17 09:15] LABS: ALANINE AMINOTRANSFERASE 18 U/L (12-78); ALBUMIN 1.6 G/DL (3.4-5.0); ALBUMIN/GLOBULIN RATIO 0.3 (1.0-2.7); ALKALINE PHOSPHATASE 137 U/L (46-116); ANION GAP 9 mmol/L (5-15); ASPARTATE AMINO TRANSFERASE 114 U/L (15-37); BLOOD UREA NITROGEN 5 mg/dL (7-18); CALCIUM 8.1 MG/DL (8.5-10.1); CARBON DIOXIDE 31 MMOL/L (21-32); CHLORIDE 104 MMOL/L (98-107); CREATININE 0.8 MG/DL (0.55-1.30); SODIUM 145 MMOL/L (136-145)
[2018-07-17 09:17] LABS: POTASSIUM 1.6 MMOL/L (3.5-5.1)
[2018-07-17 09:20] LABS: BILIRUBIN,DIRECT 12.9 MG/DL (0.0-0.3)
[2018-07-17] MEDS ORDERED: Potassium Phosphate 30 MM in NS 275 ML IV ONE (09:30)
[2018-07-17] MEDS ORDERED: Tubing IV Secondary IV ONE (10:14)
[2018-07-17] MEDS ORDERED: NS 275ml ONE (10:14)
[2018-07-17] MEDS ORDERED: Sterile Water Irrig 1000ml IRRIG ONE (10:14)
--- NOTE | 2018-07-17 12:48 | Consultation ---
History of Present Illness General Date patient seen: Jul 17, 2018 Chief Complaint: Altered Level of Consciousness Referring physician: BRENT Reason for Consultation: AMS Present Illness HPI 37-year-old female, who was diagnosed with alcohol dependence hepatic encephalopathy, liver failure, and hypokalemia. the pt was agitated and confused yelling withdrawing Allergies: Coded Allergies: LORAZEPAM (Verified Allergy, Unknown, 05/21/18) PENICILLINS (Verified Allergy, Unknown, 05/21/18) Patient History Limited by: medical condition History Provided By: Patient, Medical Record Healthcare decision maker Resuscitation status Full Code Advanced Directive on File Past Medical/Surgical History Past Medical/Surgical History: (1) Hepatic encephalopathy (2) Hypokalemia (3) Anemia (4) GI bleed (5) Altered level of consciousness (6) Liver failure Review of Systems Psychiatric: Reports: prior hx, anxiety, depressed feelings Physical Exam General Appearance: no apparent distress, alert, confused, agitated Last 24 Hour Vital Signs Date Time Temp Pulse Resp B/P (MAP) Pulse Ox O2 Delivery O2 Flow Rate FiO2 07/17/18 12:00 97.5 88 20 118/76 (90) 97 97.5 07/17/18 09:00 Room Air 07/17/18 08:00 95 07/17/18 08:00 97.1 94 20 121/71 (88) 96 97.1 07/17/18 04:00 96.8 77 19 133/68 (89) 94 96.8 07/17/18 04:00 91 07/17/18 00:00 97.9 89 20 129/74 (92) 95 97.9 07/17/18 00:00 96 07/16/18 21:00 Room Air 07/16/18 20:00 92 07/16/18 20:00 98.1 91 19 132/66 (88) 93 98.1 07/16/18 16:00 93 07/16/18 16:00 97.7 92 18 114/59 (77) 98 97.7 Intake and Output 07/16/18 07/17/18 19:00 07:00 Intake Total 150 ml Output Total 250 ml Balance -100 ml Intake Oral 150 ml Output Urine Total 250 ml # Voids 1 4 # Bowel Movements 5 1 Laboratory Tests Test 07/16/18 13:30 07/17/18 06:30 Urine Opiates Screen Negative (NEGATIVE) Urine Barbiturates Screen Negative (NEGATIVE) Phencyclidine (PCP) Screen Negative (NEGATIVE) Urine Amphetamines Screen Negative (NEGATIVE) Urine Benzodiazepines Screen Negative (NEGATIVE) Urine Cocaine Screen Negative (NEGATIVE) Urine Marijuana (THC) Screen Negative (NEGATIVE) White Blood Count 13.9 K/UL (4.8-10.8) H Red Blood Count 2.26 M/UL (4.20-5.40) L Hemoglobin 7.2 G/DL (12.0-16.0) L Hematocrit 22.3 % (37.0-47.0) L Mean Corpuscular Volume 99 FL (80-99) Mean Corpuscular Hemoglobin 31.8 PG (27.0-31.0) H Mean Corpuscular Hemoglobin Concent 32.2 G/DL (32.0-36.0) Red Cell Distribution Width 15.5 % (11.6-14.8) H Platelet Count 79 K/UL (150-450) L Mean Platelet Volume 9.8 FL (6.5-10.1) Neutrophils (%) (Auto) % (45.0-75.0) Lymphocytes (%) (Auto) % (20.0-45.0) Monocytes (%) (Auto) % (1.0-10.0) Eosinophils (%) (Auto) % (0.0-3.0) Basophils (%) (Auto) % (0.0-2.0) Differential Total Cells Counted 100 Neutrophils % (Manual) 83 % (45-75) H Lymphocytes % (Manual) 11 % (20-45) L Monocytes % (Manual) 6 % (1-10) Eosinophils % (Manual) 0 % (0-3) Basophils % (Manual) 0 % (0-2) Band Neutrophils 0 % (0-8) Platelet Estimate Decreased L Platelet Morphology Normal Hypochromasia 3+ Spherocytes 1+ Prothrombin Time 23.5 SEC (9.30-11.50) H Prothromb Time International Ratio 2.3 (0.9-1.1) H Sodium Level 145 MMOL/L (136-145) Potassium Level 1.6 MMOL/L (3.5-5.1) *L Chloride Level 104 MMOL/L (98-107) Carbon Dioxide Level 31 MMOL/L (21-32) Anion Gap 9 mmol/L (5-15) Blood Urea Nitrogen 5 mg/dL (7-18) L Creatinine 0.8 MG/DL (0.55-1.30) Estimat Glomerular Filtration Rate > 60 mL/min (>60) Glucose Level 110 MG/DL (74-106) H Calcium Level 8.1 MG/DL (8.5-10.1) L Magnesium Level 1.7 MG/DL (1.8-2.4) L Total Bilirubin 19.0 MG/DL (0.2-1.0) H Direct Bilirubin 12.9 MG/DL (0.0-0.3) H Aspartate Amino Transf (AST/SGOT) 114 U/L (15-37) H Alanine Aminotransferase (ALT/SGPT) 18 U/L (12-78) Alkaline Phosphatase 137 U/L (46-116) H Ammonia 139 umol/L (11-32) H Total Protein 7.0 G/DL (6.4-8.2) Albumin 1.6 G/DL (3.4-5.0) L Globulin 5.4 g/dL Albumin/Globulin Ratio 0.3 (1.0-2.7) L Ceruloplasmin Pending Hepatitis A IgM Antibody Pending Hepatitis B Surface Antigen Pending Hepatitis B Core IgM Antibody Pending Hepatitis C Antibody Pending Microbiology Date/Time Source Procedure Growth Status 07/16/18 13:30 Sacral Wound Gram Stain - Final Resulted 07/16/18 13:30 Wound Culture - Preliminary Gram Negative Bacillus 1 Resulted Height (Feet): 5 Height (Inches): 9.00 Weight (Pounds): 248 Medications Current Medications Medications (Trade) Dose Ordered Sig/Abner Route PRN Reason Start Time Stop Time Status Last Admin Dose Admin Dextrose/ Electrolytes 1,000 ml @ 50 mls/hr Q20H IV 07/17/18 09:30 08/16/18 09:29 Folic Acid (Folate) 1 mg DAILY ORAL 07/16/18 09:00 08/15/18 08:59 07/17/18 09:11 Lactulose (Cephulac) 30 gm FOUR TIMES A DAY ORAL 07/17/18 13:00 08/15/18 12:59 Levofloxacin 100 ml @ 100 mls/hr Q24H IVPB 07/16/18 10:30 07/23/18 10:29 07/17/18 10:52 Ondansetron HCl (Zofran) 4 mg Q4H PRN IVP Nausea & Vomiting 07/16/18 17:30 08/15/18 17:29 Potassium Phosphate 30 mm/ Sodium Chloride 285 ml @ 47.5 mls/hr ONCE ONCE IV 07/17/18 09:30 07/17/18 15:29 07/17/18 10:21 Potassium Chloride 100 ml @ 100 mls/hr Q1H IVPB 07/17/18 09:00 07/17/18 12:59 07/17/18 11:58 Prednisone (predniSONE) 40 mg DAILY ORAL 07/17/18 09:00 08/16/18 08:59 07/17/18 09:11 Rifaximin (Xifaxan) 550 mg EVERY 12 HOURS ORAL 07/16/18 09:00 07/23/18 08:59 07/17/18 09:11 Thiamine HCl 100 mg/Dextrose 56 ml @ 112 mls/hr Q24H IVPB 07/16/18 03:15 08/15/18 03:14 07/17/18 03:00 Assessment/Plan Status: stable, progressing, deteriorating Assessment/Plan hepatic encephalopathy, liver failure hypokalemia alcohol w/d -temazepam 15mg q4hr prn for alcohol w/d temazepam doesn't metabolize everything Nyasia Maloney MD Jul 17, 2018 12:48
--- NOTE | 2018-07-17 12:56 | GI Progress Note ---
Assessment/Plan Problems: (1) Liver failure ICD Codes: K72.90 - Hepatic failure, unspecified without coma SNOMED: 11511264 Qualifiers: Qualified Codes: K72.01 - Acute and subacute hepatic failure with coma (2) Altered level of consciousness ICD Codes: R40.4 - Transient alteration of awareness SNOMED: 1608695 (3) GI bleed ICD Codes: K92.2 - Gastrointestinal hemorrhage, unspecified SNOMED: 02192311 Qualifiers: Qualified Codes: K92.2 - Gastrointestinal hemorrhage, unspecified (4) Hypokalemia ICD Codes: E87.6 - Hypokalemia SNOMED: 89273238 (5) Hepatic encephalopathy ICD Codes: K72.90 - Hepatic failure, unspecified without coma SNOMED: 51985894 (6) Anemia ICD Codes: D64.9 - Anemia, unspecified SNOMED: 273792239 Qualifiers: Qualified Codes: D64.9 - Anemia, unspecified Status: unchanged Status Narrative Discussed with Dr. Rodriguez. Assessment/Plan Discriminant function calculated >> poor prognosis, will start prednisone 40mg daily abdominal U/S reviewed >> cirrhosis. ascites. paracentesis >> r/o SBP vit K x 1 [address]GT [address] electrolyte correction lactulose + xifaxan ppi prn transfusions trend LFTs will need EGD to evaluate varices when stable abx fu labs, hepatitis panel The patient was seen and examined at bedside and all new and available data was reviewed in the patients chart. I agree with the above findings, impression and plan. (Patient seen earlier today. Signature stamp does not reflect patient encounter time.). - Christopher Rodriguez MD Subjective Subjective limited Objective Last 24 Hour Vital Signs Date Time Temp Pulse Resp B/P (MAP) Pulse Ox O2 Delivery O2 Flow Rate FiO2 07/17/18 12:00 97.5 88 20 118/76 (90) 97 97.5 07/17/18 09:00 Room Air 07/17/18 08:00 95 07/17/18 08:00 97.1 94 20 121/71 (88) 96 97.1 07/17/18 04:00 96.8 77 19 133/68 (89) 94 96.8 07/17/18 04:00 91 07/17/18 00:00 97.9 89 20 129/74 (92) 95 97.9 07/17/18 00:00 96 07/16/18 21:00 Room Air 07/16/18 20:00 92 07/16/18 20:00 98.1 91 19 132/66 (88) 93 98.1 07/16/18 16:00 93 07/16/18 16:00 97.7 92 18 114/59 (77) 98 97.7 Intake and Output 07/16/18 07/17/18 19:00 07:00 Intake Total 150 ml Output Total 250 ml Balance -100 ml Intake Oral 150 ml Output Urine Total 250 ml # Voids 1 4 # Bowel Movements 5 1 Laboratory Tests Test 07/16/18 13:30 07/17/18 06:30 Urine Opiates Screen Negative (NEGATIVE) Urine Barbiturates Screen Negative (NEGATIVE) Phencyclidine (PCP) Screen Negative (NEGATIVE) Urine Amphetamines Screen Negative (NEGATIVE) Urine Benzodiazepines Screen Negative (NEGATIVE) Urine Cocaine Screen Negative (NEGATIVE) Urine Marijuana (THC) Screen Negative (NEGATIVE) White Blood Count 13.9 K/UL (4.8-10.8) H Red Blood Count 2.26 M/UL (4.20-5.40) L Hemoglobin 7.2 G/DL (12.0-16.0) L Hematocrit 22.3 % (37.0-47.0) L Mean Corpuscular Volume 99 FL (80-99) Mean Corpuscular Hemoglobin 31.8 PG (27.0-31.0) H Mean Corpuscular Hemoglobin Concent 32.2 G/DL (32.0-36.0) Red Cell Distribution Width 15.5 % (11.6-14.8) H Platelet Count 79 K/UL (150-450) L Mean Platelet Volume 9.8 FL (6.5-10.1) Neutrophils (%) (Auto) % (45.0-75.0) Lymphocytes (%) (Auto) % (20.0-45.0) Monocytes (%) (Auto) % (1.0-10.0) Eosinophils (%) (Auto) % (0.0-3.0) Basophils (%) (Auto) % (0.0-2.0) Differential Total Cells Counted 100 Neutrophils % (Manual) 83 % (45-75) H Lymphocytes % (Manual) 11 % (20-45) L Monocytes % (Manual) 6 % (1-10) Eosinophils % (Manual) 0 % (0-3) Basophils % (Manual) 0 % (0-2) Band Neutrophils 0 % (0-8) Platelet Estimate Decreased L Platelet Morphology Normal Hypochromasia 3+ Spherocytes 1+ Prothrombin Time 23.5 SEC (9.30-11.50) H Prothromb Time International Ratio 2.3 (0.9-1.1) H Sodium Level 145 MMOL/L (136-145) Potassium Level 1.6 MMOL/L (3.5-5.1) *L Chloride Level 104 MMOL/L (98-107) Carbon Dioxide Level 31 MMOL/L (21-32) Anion Gap 9 mmol/L (5-15) Blood Urea Nitrogen 5 mg/dL (7-18) L Creatinine 0.8 MG/DL (0.55-1.30) Estimat Glomerular Filtration Rate > 60 mL/min (>60) Glucose Level 110 MG/DL (74-106) H Calcium Level 8.1 MG/DL (8.5-10.1) L Magnesium Level 1.7 MG/DL (1.8-2.4) L Total Bilirubin 19.0 MG/DL (0.2-1.0) H Direct Bilirubin 12.9 MG/DL (0.0-0.3) H Aspartate Amino Transf (AST/SGOT) 114 U/L (15-37) H Alanine Aminotransferase (ALT/SGPT) 18 U/L (12-78) Alkaline Phosphatase 137 U/L (46-116) H Ammonia 139 umol/L (11-32) H Total Protein 7.0 G/DL (6.4-8.2) Albumin 1.6 G/DL (3.4-5.0) L Globulin 5.4 g/dL Albumin/Globulin Ratio 0.3 (1.0-2.7) L Ceruloplasmin Pending Hepatitis A IgM Antibody Pending Hepatitis B Surface Antigen Pending Hepatitis B Core IgM Antibody Pending Hepatitis C Antibody Pending Microbiology Date/Time Source Procedure Growth Status 07/16/18 13:30 Sacral Wound Gram Stain - Final Resulted 07/16/18 13:30 Wound Culture - Preliminary Gram Negative Bacillus 1 Resulted Height (Feet): 5 Height (Inches): 9.00 Weight (Pounds): 248 General Appearance: no apparent distress, lethargic, confused Cardiovascular: normal rate Respiratory/Chest: normal breath sounds, no respiratory distress Abdominal Exam: normal bowel sounds, non tender, soft Extremities: non-tender Markus Lebron NP Jul 17, 2018 12:56
[2018-07-17] MEDS ORDERED: Phytonadione 1 MG in D5W 55 ML IVPB SCH (14:00)
--- NOTE | 2018-07-17 15:56 | Cardiology Report ---
APPROVED REPORT EKG Measurement Heart [id number] VA 156P68 [id number] Normal sinus rhythm Possible Left atrial enlargement Abnormal ECG
[2018-07-17] MEDS: D5NS w/KCl 40mEq 1000ml 1,000 ML IV SCH (16:00)
[2018-07-18] VITALS (10 sets, daily range): BP systolic 110–137; BP diastolic 54–82
[2018-07-18] MEDS: Octreotide Acetate 500 MCG in Sodium Chloride 500ML 499 ML IV SCH ×2 (01:03→23:46)
[2018-07-18] MEDS: Pantoprazole 80 MG in NS 250 ML IV SCH ×2 (01:03→23:45)
[2018-07-18] MEDS: Thiamine HCl 100 MG in D5W 55 ML IVPB SCH (03:13)
[2018-07-18] MEDS: D5NS w/KCl 40mEq 1000ml 1,000 ML IV SCH ×2 (05:30→14:00)
--- NOTE | 2018-07-18 08:00 | Pulmonology Progress Note ---
Assessment/Plan Assessment/Plan 1. Malnutrition. 2. Hepatic failure. 3. Suspicion of alcohol abuse. 4. Severe hypokalemia. 5. Hyperglycemia. 6. Leukocytosis. 7. Anemia. DISCUSSION: The patient has multiple issues at this point in time, which are addressed below. 1. Anemia. At this time, her stool is guaiac positive. She is not overtly bleeding. I will monitor hemoglobin and consult GI. Hgb is now 7.2. 2. Hypokalemia, severe. NG tube has been placed. She will receive IV and oral replacement. Seen by consult Nephrology to assist in this complicated process as she is severely hypokalemic. The etiology of this is unknown. Magnesium replaced.Labs pending this AM. 3. Suspicion of alcohol abuse. There is no clear history of alcohol; however, the AST/ALT ratio is suggestive of it. Mother was reporting she was consuming alcohol. I will investigate this further. Start thiamine and folic acid. 4. Hepatic failure. This is apparently a chronic problem. Seen by Gastroenterology to assist in this matter. I will also continue lactulose. Hold off on empiric antibiotics. I do not suspect SBP however paracentesis per GI. Also now on prednisone. I will follow carefully. Subjective Interval Events: Lethargic and calm this AM Constitutional: Reports: no symptoms HEENT: Repors: no symptoms Respiratory: Reports: no symptoms Cardiovascular: Reports: no symptoms Gastrointestinal/Abdominal: Reports: no symptoms Allergies: Coded Allergies: LORAZEPAM (Verified Allergy, Unknown, 05/21/18) PENICILLINS (Verified Allergy, Unknown, 05/21/18) Objective Last 24 Hour Vital Signs Date Time Temp Pulse Resp B/P (MAP) Pulse Ox O2 Delivery O2 Flow Rate FiO2 07/18/18 04:00 82 07/18/18 04:00 96.9 82 20 132/82 (99) 96 96.9 07/18/18 00:00 77 07/18/18 00:00 97.5 77 20 125/68 (87) 98 97.5 07/17/18 21:00 Room Air 07/17/18 20:00 86 07/17/18 20:00 96.7 86 20 125/70 (88) 95 96.7 07/17/18 16:04 97.2 90 20 119/83 (95) 99 97.2 07/17/18 16:00 85 07/17/18 13:43 97.5 91 20 130/71 (90) 94 97.5 07/17/18 12:00 97.5 88 20 118/76 (90) 97 97.5 07/17/18 12:00 93 07/17/18 09:00 Room Air 07/17/18 08:00 95 07/17/18 08:00 97.1 94 20 121/71 (88) 96 97.1 Intake and Output 07/17/18 07/18/18 19:00 07:00 Intake Total 50 ml 606 ml Balance 50 ml 606 ml IV Total 50 ml 606 ml # Voids 3 # Bowel Movements 1 2 General Appearance: no acute distress HEENT: normocephalic Respiratory/Chest: chest wall non-tender Cardiovascular: normal peripheral pulses Abdomen: normal bowel sounds, soft, non tender Microbiology Date/Time Source Procedure Growth Status 07/16/18 13:30 Sacral Wound Gram Stain - Final Resulted 07/16/18 13:30 Wound Culture - Preliminary Gram Negative Bacillus 1 Resulted Current Medications Medications (Trade) Dose Ordered Sig/Abner Route PRN Reason Start Time Stop Time Status Last Admin Dose Admin Dextrose/ Electrolytes 1,000 ml @ 50 mls/hr Q20H IV 07/17/18 09:30 08/16/18 09:29 07/17/18 16:00 Folic Acid (Folate) 1 mg DAILY ORAL 07/16/18 09:00 08/15/18 08:59 07/17/18 09:11 Lactulose (Cephulac) 30 gm FOUR TIMES A DAY ORAL 07/17/18 13:00 08/15/18 12:59 07/17/18 21:05 Levofloxacin 100 ml @ 100 mls/hr Q24H IVPB 07/16/18 10:30 07/23/18 10:29 07/17/18 10:52 Ondansetron HCl (Zofran) 4 mg Q4H PRN IVP Nausea & Vomiting 07/16/18 17:30 08/15/18 17:29 Prednisone (predniSONE) 40 mg DAILY ORAL 07/17/18 09:00 08/16/18 08:59 07/17/18 09:11 Rifaximin (Xifaxan) 550 mg EVERY 12 HOURS ORAL 07/16/18 09:00 07/23/18 08:59 07/17/18 21:06 Temazepam (Restoril) 15 mg Q4H PRN ORAL Agitation 07/17/18 12:50 07/24/18 12:49 07/17/18 21:06 Thiamine HCl 100 mg/Dextrose 56 ml @ 112 mls/hr Q24H IVPB 07/16/18 03:15 08/15/18 03:14 07/18/18 03:13 Bowen Choudhury MD Jul 18, 2018 08:00
--- NOTE | 2018-07-18 08:31 | Nephrology Progress Note ---
Assessment/Plan Assessment/Plan A/P 1) Hypok+/Mg/Phos - due to poor nutritional state from chronic alcohol abuse - large volume deficit being replaced on a daily basis - AM labs pending 2) Tranaminitis- liver failure- per GI - NG per GI 3) Alochol Abuse- thiamine and folate Subjective Date patient seen: Jul 18, 2018 Time patient seen: 08:29 ROS Limited/Unobtainable: Yes Allergies: Coded Allergies: LORAZEPAM (Verified Allergy, Unknown, 05/21/18) PENICILLINS (Verified Allergy, Unknown, 05/21/18) All Systems: reviewed and negative except above Subjective Patient remains agitated Objective Last 24 Hour Vital Signs Date Time Temp Pulse Resp B/P (MAP) Pulse Ox O2 Delivery O2 Flow Rate FiO2 07/18/18 04:00 82 07/18/18 04:00 96.9 82 20 132/82 (99) 96 96.9 07/18/18 00:00 77 07/18/18 00:00 97.5 77 20 125/68 (87) 98 97.5 07/17/18 21:00 Room Air 07/17/18 20:00 86 07/17/18 20:00 96.7 86 20 125/70 (88) 95 96.7 07/17/18 16:04 97.2 90 20 119/83 (95) 99 97.2 07/17/18 16:00 85 07/17/18 13:43 97.5 91 20 130/71 (90) 94 97.5 07/17/18 12:00 97.5 88 20 118/76 (90) 97 97.5 07/17/18 12:00 93 07/17/18 09:00 Room Air Intake and Output 07/17/18 07/18/18 19:00 07:00 Intake Total 50 ml 606 ml Balance 50 ml 606 ml IV Total 50 ml 606 ml # Voids 3 # Bowel Movements 1 2 Height (Feet): 5 Height (Inches): 9.00 Weight (Pounds): 248 General Appearance: WD/WN EENT: PERRL/EOMI Neck: non-tender, normal alignment Cardiovascular: normal rate, regular rhythm Respiratory/Chest: lungs clear, normal breath sounds Abdomen: distended Edema: 1+ Arm (L), 1+ Arm (R), 1+ Leg (L), 1+ Leg (R), 1+ Pedal (L), 1+ Pedal ( R), 1+ Generalized Amos Pinon MD Jul 18, 2018 08:30
[2018-07-18 08:49] LABS: HEMATOCRIT 23.6 % (37.0-47.0); HEMOGLOBIN 7.7 G/DL (12.0-16.0); MEAN CORPUSCULAR VOLUME 99 FL (80-99); PLATELET COUNT 91 K/UL (150-450); RED BLOOD COUNT 2.38 M/UL (4.20-5.40); RED CELL DISTRIBUTION WIDTH 15.5 % (11.6-14.8); WHITE BLOOD COUNT 15.4 K/UL (4.8-10.8)
[2018-07-18 09:02] LABS: INR 2.2 (0.9-1.1)
[2018-07-18 09:17] LABS: ALANINE AMINOTRANSFERASE 20 U/L (12-78); ALBUMIN 1.7 G/DL (3.4-5.0); ALBUMIN/GLOBULIN RATIO 0.3 (1.0-2.7); ALKALINE PHOSPHATASE 137 U/L (46-116); ANION GAP 5 mmol/L (5-15); ASPARTATE AMINO TRANSFERASE 111 U/L (15-37); BILIRUBIN,TOTAL 20.4 MG/DL (0.2-1.0); BLOOD UREA NITROGEN 9 mg/dL (7-18); CALCIUM 8.3 MG/DL (8.5-10.1); CARBON DIOXIDE 34 MMOL/L (21-32); CHLORIDE 109 MMOL/L (98-107); CREATININE 0.8 MG/DL (0.55-1.30); PHOSPHORUS 2.3 MG/DL (2.5-4.9); SODIUM 147 MMOL/L (136-145)
[2018-07-18 09:28] LABS: POTASSIUM 1.8 MMOL/L (3.5-5.1)
[2018-07-18 10:00] LABS: BILIRUBIN,DIRECT 14.1 MG/DL (0.0-0.3)
[2018-07-18] MEDS ORDERED: Phytonadione 1 MG in D5W 55 ML IVPB ONE (10:00)
[2018-07-18] MEDS: Lactulose 20gm/30ml UDC ORAL SCH ×4 (10:15→21:11)
--- NOTE | 2018-07-18 10:34 | GI Progress Note ---
Assessment/Plan Problems: (1) Liver failure ICD Codes: K72.90 - Hepatic failure, unspecified without coma SNOMED: 14928271 Qualifiers: Qualified Codes: K72.01 - Acute and subacute hepatic failure with coma (2) Altered level of consciousness ICD Codes: R40.4 - Transient alteration of awareness SNOMED: 8989679 (3) GI bleed ICD Codes: K92.2 - Gastrointestinal hemorrhage, unspecified SNOMED: 72098769 Qualifiers: Qualified Codes: K92.2 - Gastrointestinal hemorrhage, unspecified (4) Hypokalemia ICD Codes: E87.6 - Hypokalemia SNOMED: 49518852 (5) Hepatic encephalopathy ICD Codes: K72.90 - Hepatic failure, unspecified without coma SNOMED: 30983319 (6) Anemia ICD Codes: D64.9 - Anemia, unspecified SNOMED: 841722125 Qualifiers: Qualified Codes: D64.9 - Anemia, unspecified Status: not improved, unchanged Status Narrative Discussed with Dr. Rodriguez. Assessment/Plan Discriminant function calculated >> poor prognosis, prednisone 40mg daily abdominal U/S reviewed >> cirrhosis. ascites. active hematemesis today transfer to ICU Endoscopy cancelled due to hypokalemia, will reschedule for tomorrow. pRBCs, FFP stat vit K x 1 maintain NPO + IVFs NGT to LIS electrolyte correction lactulose + xifaxan ppi gtt octreotide gtt prn transfusions trend LFTs abx fu labs The patient was seen and examined at bedside and all new and available data was reviewed in the patients chart. I agree with the above findings, impression and plan. (Patient seen earlier today. Signature stamp does not reflect patient encounter time.). - Christopher Rodriguez MD Subjective Subjective limited Objective Last 24 Hour Vital Signs Date Time Temp Pulse Resp B/P (MAP) Pulse Ox O2 Delivery O2 Flow Rate FiO2 07/18/18 08:00 97.8 79 20 137/66 (89) 100 97.8 07/18/18 08:00 77 07/18/18 04:00 82 07/18/18 04:00 96.9 82 20 132/82 (99) 96 96.9 07/18/18 00:00 77 07/18/18 00:00 97.5 77 20 125/68 (87) 98 97.5 07/17/18 21:00 Room Air 07/17/18 20:00 86 07/17/18 20:00 96.7 86 20 125/70 (88) 95 96.7 07/17/18 16:04 97.2 90 20 119/83 (95) 99 97.2 07/17/18 16:00 85 07/17/18 13:43 97.5 91 20 130/71 (90) 94 97.5 07/17/18 12:00 97.5 88 20 118/76 (90) 97 97.5 07/17/18 12:00 93 Intake and Output 07/17/18 07/18/18 19:00 07:00 Intake Total 50 ml 606 ml Balance 50 ml 606 ml IV Total 50 ml 606 ml # Voids 3 # Bowel Movements 1 2 Laboratory Tests Test 07/18/18 08:40 White Blood Count 15.4 K/UL (4.8-10.8) H Red Blood Count 2.38 M/UL (4.20-5.40) L Hemoglobin 7.7 G/DL (12.0-16.0) L Hematocrit 23.6 % (37.0-47.0) L Mean Corpuscular Volume 99 FL (80-99) Mean Corpuscular Hemoglobin 32.3 PG (27.0-31.0) H Mean Corpuscular Hemoglobin Concent 32.6 G/DL (32.0-36.0) Red Cell Distribution Width 15.5 % (11.6-14.8) H Platelet Count 91 K/UL (150-450) L Mean Platelet Volume 7.9 FL (6.5-10.1) Neutrophils (%) (Auto) % (45.0-75.0) Lymphocytes (%) (Auto) % (20.0-45.0) Monocytes (%) (Auto) % (1.0-10.0) Eosinophils (%) (Auto) % (0.0-3.0) Basophils (%) (Auto) % (0.0-2.0) Differential Total Cells Counted 100 Neutrophils % (Manual) 81 % (45-75) H Lymphocytes % (Manual) 12 % (20-45) L Monocytes % (Manual) 7 % (1-10) Eosinophils % (Manual) 0 % (0-3) Basophils % (Manual) 0 % (0-2) Band Neutrophils 0 % (0-8) Platelet Estimate Decreased L Platelet Morphology Normal Hypochromasia 1+ Anisocytosis 1+ Prothrombin Time 22.7 SEC (9.30-11.50) H Prothromb Time International Ratio 2.2 (0.9-1.1) H Activated Partial Thromboplast Time 38 SEC (23-33) H Sodium Level 147 MMOL/L (136-145) H Potassium Level 1.8 MMOL/L (3.5-5.1) *L Chloride Level 109 MMOL/L (98-107) H Carbon Dioxide Level 34 MMOL/L (21-32) H Anion Gap 5 mmol/L (5-15) Blood Urea Nitrogen 9 mg/dL (7-18) Creatinine 0.8 MG/DL (0.55-1.30) Estimat Glomerular Filtration Rate > 60 mL/min (>60) Glucose Level 133 MG/DL (74-106) H Calcium Level 8.3 MG/DL (8.5-10.1) L Phosphorus Level 2.3 MG/DL (2.5-4.9) L Magnesium Level 1.9 MG/DL (1.8-2.4) Total Bilirubin 20.4 MG/DL (0.2-1.0) H Direct Bilirubin 14.1 MG/DL (0.0-0.3) H Aspartate Amino Transf (AST/SGOT) 111 U/L (15-37) H Alanine Aminotransferase (ALT/SGPT) 20 U/L (12-78) Alkaline Phosphatase 137 U/L (46-116) H Total Protein 7.1 G/DL (6.4-8.2) Albumin 1.7 G/DL (3.4-5.0) L Globulin 5.4 g/dL Albumin/Globulin Ratio 0.3 (1.0-2.7) L Height (Feet): 5 Height (Inches): 9.00 Weight (Pounds): 248 General Appearance: lethargic Respiratory/Chest: no respiratory distress Abdominal Exam: soft, other - NGT Extremities: non-tender Markus Lebron NP Jul 18, 2018 10:34
[2018-07-18] MEDS ORDERED: cefTRIAXone 1 GM in D5W 55 ML IVPB SCH (11:00)
[2018-07-18] MEDS ORDERED: Potassium Chloride 50 MEQ in Sodium Chloride 500ML 550 ML IVPB ONE ×2 (11:00→12:40)
--- NOTE | 2018-07-18 11:22 | General Progress Note ---
Assessment/Plan Assessment/Plan hepatic encephalopathy, liver failure hypokalemia alcohol w/d -temazepam 15mg q6hr prn for alcohol w/d temazepam doesn't metabolize through liver hold when sedated transfer to ICU Subjective Date patient seen: Jul 18, 2018 Neurologic/Psychiatric: Reports: anxiety Allergies: Coded Allergies: LORAZEPAM (Verified Allergy, Unknown, 05/21/18) PENICILLINS (Verified Allergy, Unknown, 05/21/18) Subjective the pt is agitated and withdrawing Objective Last 24 Hour Vital Signs Date Time Temp Pulse Resp B/P (MAP) Pulse Ox O2 Delivery O2 Flow Rate FiO2 07/18/18 08:00 97.8 79 20 137/66 (89) 100 97.8 07/18/18 08:00 77 07/18/18 04:00 82 07/18/18 04:00 96.9 82 20 132/82 (99) 96 96.9 07/18/18 00:00 77 07/18/18 00:00 97.5 77 20 125/68 (87) 98 97.5 07/17/18 21:00 Room Air 07/17/18 20:00 86 07/17/18 20:00 96.7 86 20 125/70 (88) 95 96.7 07/17/18 16:04 97.2 90 20 119/83 (95) 99 97.2 07/17/18 16:00 85 07/17/18 13:43 97.5 91 20 130/71 (90) 94 97.5 07/17/18 12:00 97.5 88 20 118/76 (90) 97 97.5 07/17/18 12:00 93 Intake and Output 07/17/18 07/18/18 19:00 07:00 Intake Total 50 ml 606 ml Balance 50 ml 606 ml IV Total 50 ml 606 ml # Voids 3 # Bowel Movements 1 2 Laboratory Tests 07/18/18 08:40: White Blood Count 15.4H, Red Blood Count 2.38L, Hemoglobin 7.7L, Hematocrit 23.6L, Mean Corpuscular Volume 99, Mean Corpuscular Hemoglobin 32.3H, Mean Corpuscular Hemoglobin Concent 32.6, Red Cell Distribution Width 15.5H, Platelet Count 91L, Mean Platelet Volume 7.9, Neutrophils (%) (Auto) , Lymphocytes (%) (Auto) , Monocytes (%) (Auto) , Eosinophils (%) (Auto) , Basophils (%) (Auto) , Differential Total Cells Counted 100, Neutrophils % ( Manual) 81H, Lymphocytes % (Manual) 12L, Monocytes % (Manual) 7, Eosinophils % ( Manual) 0, Basophils % (Manual) 0, Band Neutrophils 0, Platelet Estimate DecreasedL, Platelet Morphology Normal, Hypochromasia 1+, Anisocytosis 1+, Prothrombin Time 22.7H, Prothromb Time International Ratio 2.2H, Activated Partial Thromboplast Time 38H, Sodium Level 147H, Potassium Level 1.8*L, Chloride Level 109H, Carbon Dioxide Level 34H, Anion Gap 5, Blood Urea Nitrogen 9, Creatinine 0.8, Estimat Glomerular Filtration Rate > 60, Glucose Level 133H, Calcium Level 8.3L, Phosphorus Level 2.3L, Magnesium Level 1.9, Total Bilirubin 20.4H, Direct Bilirubin 14.1H, Aspartate Amino Transf (AST/SGOT) 111H, Alanine Aminotransferase (ALT/SGPT) 20, Alkaline Phosphatase 137H, Total Protein 7.1, Albumin 1.7L, Globulin 5.4, Albumin/Globulin Ratio 0.3L Height (Feet): 5 Height (Inches): 9.00 Weight (Pounds): 248 General Appearance: alert, confused, agitated Nyasia Maloney MD Jul 18, 2018 11:22
[2018-07-18] MEDS ORDERED: Pantoprazole 80 MG in NS 250 ML IV SCH (12:45)
[2018-07-18] MEDS ORDERED: Octreotide Acetate 500 MCG in Sodium Chloride 500ML 499 ML IV SCH (12:45)
--- NOTE | 2018-07-18 15:58 | Diagnostic Imaging Report ---
APPROVED REPORT CPT Code: 77225 Present Symptoms Comments: BILATERAL LEGS PAIN. BILATERAL: Imaging reveals a patent deep venous system bilaterally. There is no evidence of thrombus within the femoral, popliteal or tibial segments. The greater saphenous veins are also within normal limits. Doppler indicates normal spontaneous flow within these segments.
[2018-07-18] MEDS ORDERED: Sodium Phosphate 15 MM in NS 275 ML IVPB ONE (17:00)
[2018-07-18] MEDS: Sodium Phosphate 15 MM in NS 275 ML IVPB ONE ×2 (17:00→19:01)
[2018-07-19] VITALS (24 sets, daily range): BP systolic 105–136; BP diastolic 47–77
[2018-07-19] MEDS ORDERED: fentaNYL 100 mcg/2 mL IV PRN (08:00)
[2018-07-19] MEDS ORDERED: Atropine Inj 1mg/10ml Syr IV PRN (08:00)
[2018-07-19] MEDS ORDERED: DiphenhydrAMINE 50mg/ml Inj IVP PRN (08:00)
[2018-07-19] MEDS: Octreotide Acetate 500 MCG in Sodium Chloride 500ML 499 ML IV SCH ×2 (08:00→18:00)
[2018-07-19] MEDS: Pantoprazole 80 MG in NS 250 ML IV SCH ×2 (08:00→18:00)
--- NOTE | 2018-07-19 08:00 | Anethesia Preoperative Eval ---
Anesthesia Pre-op PMH/ROS General Date of Evaluation: Jul 19, 2018 Time of Evaluation: 07:51 Anesthesiologist: ambrose ASA Score: ASA 4 Mallampati Score Class I : Soft palate, uvula, fauces, pillars visible Class II: Soft palate, uvula, fauces visible Class III: Soft palate, base of uvula visible Class IV: Only hard plate visible Mallampati Classification: Class II Surgeon: rafita Diagnosis: gi bleed Surgical Procedure: egd Anesthesia History: none Social History: alcohol use Family History: no anesthesia problems Allergies: Coded Allergies: LORAZEPAM (Verified Allergy, Unknown, 05/21/18) PENICILLINS (Verified Allergy, Unknown, 05/21/18) Medications: see eMAR Past Medical History Pulmonary: Reports: asthma Gastrointestinal/Genitourinary: Reports: other - kidney stones, liver failure Neurologic/Psychiatric: Reports: depression/anxiety - lower extremity numbness , other - hepatic encephalopathy, ethanol withdrawal Anesthesia Pre-op Phys. Exam Physician Exam Last Vital Signs Date Time Temp Pulse Resp B/P (MAP) Pulse Ox O2 Delivery O2 Flow Rate FiO2 07/19/18 07:00 93 16 114/52 (72) 97 07/19/18 04:00 97.3 97.3 07/18/18 21:00 Room Air Constitutional: NAD Neurologic: CN 2-12 intact Cardiovascular: RRR Respiratory: CTA Gastrointestinal: S/NT/ND Airway Exam Mallampati Score: Class II MO: limited Neck: flexible TMD: 2fb ROM: limited Anesthesia Pre-op A/P Labs Labs 07/19/2018 sodium 154, potassium 2.2, HCT 23.6, Hgb 5.6 Test 07/17/18 06:30 07/18/18 08:40 07/18/18 18:20 07/18/18 20:45 White Blood Count 13.9 K/UL (4.8-10.8) 15.4 K/UL (4.8-10.8) Red Blood Count 2.26 M/UL (4.20-5.40) 2.38 M/UL (4.20-5.40) Hemoglobin 7.2 G/DL (12.0-16.0) 7.7 G/DL (12.0-16.0) Hematocrit 22.3 % (37.0-47.0) 23.6 % (37.0-47.0) Mean Corpuscular Volume 99 FL (80-99) 99 FL (80-99) Mean Corpuscular Hemoglobin 31.8 PG (27.0-31.0) 32.3 PG (27.0-31.0) Mean Corpuscular Hemoglobin Concent 32.2 G/DL (32.0-36.0) 32.6 G/DL (32.0-36.0) Red Cell Distribution Width 15.5 % (11.6-14.8) 15.5 % (11.6-14.8) Platelet Count 79 K/UL (150-450) 91 K/UL (150-450) Mean Platelet Volume 9.8 FL (6.5-10.1) 7.9 FL (6.5-10.1) Neutrophils (%) (Auto) % (45.0-75.0) % (45.0-75.0) Lymphocytes (%) (Auto) % (20.0-45.0) % (20.0-45.0) Monocytes (%) (Auto) % (1.0-10.0) % (1.0-10.0) Eosinophils (%) (Auto) % (0.0-3.0) % (0.0-3.0) Basophils (%) (Auto) % (0.0-2.0) % (0.0-2.0) Differential Total Cells Counted 100 100 Neutrophils % (Manual) 83 % (45-75) 81 % (45-75) Lymphocytes % (Manual) 11 % (20-45) 12 % (20-45) Monocytes % (Manual) 6 % (1-10) 7 % (1-10) Eosinophils % (Manual) 0 % (0-3) 0 % (0-3) Basophils % (Manual) 0 % (0-2) 0 % (0-2) Band Neutrophils 0 % (0-8) 0 % (0-8) Platelet Estimate Decreased Decreased Platelet Morphology Normal Normal Hypochromasia 3+ 1+ Spherocytes 1+ Prothrombin Time 23.5 SEC (9.30-11.50) 22.7 SEC (9.30-11.50) Prothromb Time International Ratio 2.3 (0.9-1.1) 2.2 (0.9-1.1) Sodium Level 145 MMOL/L (136-145) 147 MMOL/L (136-145) Potassium Level 1.6 MMOL/L (3.5-5.1) 1.8 MMOL/L (3.5-5.1) 2.1 MMOL/L (3.5-5.1) Chloride Level 104 MMOL/L (98-107) 109 MMOL/L (98-107) Carbon Dioxide Level 31 MMOL/L (21-32) 34 MMOL/L (21-32) Anion Gap 9 mmol/L (5-15) 5 mmol/L (5-15) Blood Urea Nitrogen 5 mg/dL (7-18) 9 mg/dL (7-18) Creatinine 0.8 MG/DL (0.55-1.30) 0.8 MG/DL (0.55-1.30) Estimat Glomerular Filtration Rate > 60 mL/min (>60) > 60 mL/min (>60) Glucose Level 110 MG/DL (74-106) 133 MG/DL (74-106) Calcium Level 8.1 MG/DL (8.5-10.1) 8.3 MG/DL (8.5-10.1) Magnesium Level 1.7 MG/DL (1.8-2.4) 1.9 MG/DL (1.8-2.4) Total Bilirubin 19.0 MG/DL (0.2-1.0) 20.4 MG/DL (0.2-1.0) Direct Bilirubin 12.9 MG/DL (0.0-0.3) 14.1 MG/DL (0.0-0.3) Aspartate Amino Transf (AST/SGOT) 114 U/L (15-37) 111 U/L (15-37) Alanine Aminotransferase (ALT/SGPT) 18 U/L (12-78) 20 U/L (12-78) Alkaline Phosphatase 137 U/L (46-116) 137 U/L (46-116) Ammonia 139 umol/L (11-32) Total Protein 7.0 G/DL (6.4-8.2) 7.1 G/DL (6.4-8.2) Albumin 1.6 G/DL (3.4-5.0) 1.7 G/DL (3.4-5.0) Globulin 5.4 g/dL 5.4 g/dL Albumin/Globulin Ratio 0.3 (1.0-2.7) 0.3 (1.0-2.7) Ceruloplasmin 14.3 mg/dL (19.0-39.0) Hepatitis A IgM Antibody Negative (Negative) Hepatitis B Surface Antigen Negative (Negative) Hepatitis B Core IgM Antibody Negative (Negative) Hepatitis C Antibody 0.1 s/co ratio (0.0-0.9) Anisocytosis 1+ Activated Partial Thromboplast Time 38 SEC (23-33) Phosphorus Level 2.3 MG/DL (2.5-4.9) Urine Potassium Timed 28 mmol/L (12-62) Test 07/19/18 08:25 White Blood Count 14.9 K/UL (4.8-10.8) Red Blood Count 1.76 M/UL (4.20-5.40) Hemoglobin 5.6 G/DL (12.0-16.0) Hematocrit 17.4 % (37.0-47.0) Mean Corpuscular Volume 99 FL (80-99) Mean Corpuscular Hemoglobin 32.0 PG (27.0-31.0) Mean Corpuscular Hemoglobin Concent 32.4 G/DL (32.0-36.0) Red Cell Distribution Width 18.7 % (11.6-14.8) Platelet Count 73 K/UL (150-450) Mean Platelet Volume 7.3 FL (6.5-10.1) Neutrophils (%) (Auto) % (45.0-75.0) Lymphocytes (%) (Auto) % (20.0-45.0) Monocytes (%) (Auto) % (1.0-10.0) Eosinophils (%) (Auto) % (0.0-3.0) Basophils (%) (Auto) % (0.0-2.0) Differential Total Cells Counted 100 Neutrophils % (Manual) 78 % (45-75) Lymphocytes % (Manual) 5 % (20-45) Monocytes % (Manual) 14 % (1-10) Eosinophils % (Manual) 0 % (0-3) Basophils % (Manual) 0 % (0-2) Myelocytes % 1 % (0-0) Band Neutrophils 2 % (0-8) Platelet Estimate Decreased Platelet Morphology Normal Hypochromasia 1+ Anisocytosis 1+ Prothrombin Time 20.4 SEC (9.30-11.50) Prothromb Time International Ratio 2.0 (0.9-1.1) Activated Partial Thromboplast Time 30 SEC (23-33) Sodium Level 154 MMOL/L (136-145) Potassium Level 2.2 MMOL/L (3.5-5.1) Chloride Level 116 MMOL/L (98-107) Carbon Dioxide Level 31 MMOL/L (21-32) Anion Gap 8 mmol/L (5-15) Blood Urea Nitrogen 10 mg/dL (7-18) Creatinine 0.8 MG/DL (0.55-1.30) Estimat Glomerular Filtration Rate > 60 mL/min (>60) Glucose Level 127 MG/DL (74-106) Calcium Level 8.1 MG/DL (8.5-10.1) Phosphorus Level 3.4 MG/DL (2.5-4.9) Magnesium Level 1.7 MG/DL (1.8-2.4) Total Bilirubin 17.6 MG/DL (0.2-1.0) Direct Bilirubin 11.8 MG/DL (0.0-0.3) Aspartate Amino Transf (AST/SGOT) 97 U/L (15-37) Alanine Aminotransferase (ALT/SGPT) 19 U/L (12-78) Alkaline Phosphatase 116 U/L (46-116) Total Protein 5.8 G/DL (6.4-8.2) Albumin 1.5 G/DL (3.4-5.0) Globulin 4.3 g/dL Albumin/Globulin Ratio 0.3 (1.0-2.7) Risk Assessment & Plan Assessment: asa4E patient is reportedly actively bleeding. Plan: mac procedure to be done at bedside in the ICU. FFP infusing. pRBCs ordered Status Change Before Surgery: No Pre-Antibiotics Drug: Danni Yarbrough MD Jul 19, 2018 08:00
--- NOTE | 2018-07-19 08:50 | Pulmonology Progress Note ---
Assessment/Plan Assessment/Plan 1. Malnutrition. 2. Hepatic failure. 3. Suspicion of alcohol abuse. 4. Severe hypokalemia. 5. Hyperglycemia. 6. Leukocytosis. 7. Anemia. DISCUSSION: 1. Anemia. At this time, her stool is guaiac positive. She is not overtly bleeding. I will monitor hemoglobin and consult GI. Hgb is now 7.2. 2. Hypokalemia, severe. NG tube has been placed. She will receive IV and oral replacement. Seen by consult Nephrology to assist in this complicated process as she is severely hypokalemic. The etiology of this is unknown. Magnesium replaced.Labs pending this AM. Last K 2.2 3. Suspicion of alcohol abuse. There is no clear history of alcohol; however, the AST/ALT ratio is suggestive of it. Mother was reporting she was consuming alcohol. I will investigate this further. Start thiamine and folic acid. 4. Hepatic failure. This is apparently a chronic problem. Seen by Gastroenterology to assist in this matter. I will also continue lactulose. Hold off on empiric antibiotics. I do not suspect SBP however paracentesis per GI. Also now on prednisone. I will follow carefully. Subjective Interval Events: None Constitutional: Reports: no symptoms HEENT: Repors: no symptoms Respiratory: Reports: no symptoms Cardiovascular: Reports: no symptoms Gastrointestinal/Abdominal: Reports: no symptoms Genitourinary: Reports: no symptoms Allergies: Coded Allergies: LORAZEPAM (Verified Allergy, Unknown, 05/21/18) PENICILLINS (Verified Allergy, Unknown, 05/21/18) Objective Last 24 Hour Vital Signs Date Time Temp Pulse Resp B/P (MAP) Pulse Ox O2 Delivery O2 Flow Rate FiO2 07/19/18 07:00 93 16 114/52 (72) 97 07/19/18 06:00 96 16 120/52 (74) 97 07/19/18 05:00 97 18 105/54 (71) 98 07/19/18 04:00 97.3 97 16 112/47 (68) 99 97.3 07/19/18 04:00 97 07/19/18 03:00 100 16 108/54 (72) 99 07/19/18 02:00 98 16 115/57 (76) 98 07/19/18 01:00 97 15 113/55 (74) 98 07/19/18 00:00 95 07/19/18 00:00 97.6 96 15 114/54 (74) 98 97.6 07/18/18 23:00 95 15 114/54 (74) 98 07/18/18 22:00 95 17 110/55 (73) 97 07/18/18 21:00 Room Air 07/18/18 21:00 93 15 128/61 (83) 99 07/18/18 20:00 94 07/18/18 20:00 98.2 94 15 117/63 (81) 97 98.2 07/18/18 19:00 92 15 113/64 (80) 97 07/18/18 16:00 97.5 91 20 116/69 (85) 99 97.5 07/18/18 16:00 91 07/18/18 12:00 79 07/18/18 11:35 97.5 86 14 113/69 (84) 99 97.5 07/18/18 09:00 Room Air Intake and Output 07/18/18 07/19/18 19:00 07:00 Intake Total 125 ml 1675 ml Output Total 50 ml 920 ml Balance 75 ml 755 ml IV Total 125 ml 1675 ml Output Urine Total 50 ml 480 ml Other 440 ml # Bowel Movements 2 General Appearance: no acute distress HEENT: normocephalic Respiratory/Chest: chest wall non-tender, lungs clear Cardiovascular: normal peripheral pulses Microbiology Date/Time Source Procedure Growth Status 07/16/18 13:30 Sacral Wound Gram Stain - Final Resulted 07/16/18 13:30 Wound Culture - Preliminary Klebsiella Pneumoniae Gram Negative Bacillus 2 Gram Negative Bacillus 3 Resulted Laboratory Tests 07/18/18 18:20: Urine Potassium Timed 28 07/18/18 20:45: Potassium Level 2.1*L Current Medications Medications (Trade) Dose Ordered Sig/Abner Route PRN Reason Start Time Stop Time Status Last Admin Dose Admin Al Hydroxide/Mg Hydroxide (Mylanta) 15 ml Q1H PRN ORAL gi upset 07/19/18 08:00 07/19/18 15:00 Atropine Sulfate (Atropine) 0.5 mg Q5M PRN IV bpm less than 45 07/19/18 08:00 07/19/18 15:00 Dextrose/ Electrolytes 1,000 ml @ 50 mls/hr Q20H IV 07/18/18 14:00 08/16/18 13:59 07/18/18 14:00 Diphenhydramine HCl (Benadryl) 25 mg Q15M PRN IVP Itching 07/19/18 08:00 07/19/18 15:00 Fentanyl Citrate (Sublimaze 100 mcg/2 mL) 25 mcg Q10M PRN IV Moderate Pain (Pain Scale 4-6) 07/19/18 08:00 07/19/18 15:00 Folic Acid (Folate) 1 mg DAILY ORAL 07/19/18 09:00 08/15/18 08:59 Hydralazine HCl (Apresoline) 5 mg Q30M PRN IV SBP>160 OR___/DBP>90 OR___ 07/19/18 08:00 07/19/18 15:00 Lactulose (Cephulac) 30 gm FOUR TIMES A DAY ORAL 07/18/18 13:00 08/15/18 12:59 07/18/18 21:11 Levofloxacin 100 ml @ 100 mls/hr Q24H IVPB 07/19/18 10:30 07/23/18 10:29 Octreotide Acetate 500 mcg/ Sodium Chloride 500 ml @ 50 mls/hr Q10H IV 07/18/18 12:00 08/17/18 11:59 07/18/18 23:46 Ondansetron HCl (Zofran) 4 mg Q1H PRN IVP Nausea & Vomiting 07/19/18 08:00 07/19/18 15:00 Ondansetron HCl (Zofran) 4 mg Q4H PRN IVP Nausea & Vomiting 07/18/18 13:30 08/15/18 17:29 Pantoprazole 80 mg/Sodium Chloride 250 ml @ 25 mls/hr Q10H IV 07/18/18 12:00 08/17/18 11:59 07/18/18 23:45 Prednisone (predniSONE) 40 mg DAILY ORAL 07/19/18 09:00 08/16/18 08:59 Rifaximin (Xifaxan) 550 mg EVERY 12 HOURS ORAL 07/18/18 21:00 07/23/18 08:59 07/18/18 21:11 Sodium Chloride 1,000 ml @ 10 mls/hr Q24H IVLG 07/19/18 07:49 07/19/18 09:48 Temazepam (Restoril) 15 mg Q6H PRN ORAL Agitation 07/18/18 17:30 07/25/18 11:29 Bowen Choudhury MD Jul 19, 2018 08:50
--- NOTE | 2018-07-19 08:58 | Nephrology Progress Note ---
Assessment/Plan Assessment/Plan A/P 1) Hypok+/Mg/Phos - due to poor nutritional state from chronic alcohol abuse - large volume deficit being replaced on a daily basis and Mg and phos corrected - AM labs pending and will replace 2) Tranaminitis- liver failure- per GI - NG per GI 3) Alochol Abuse- thiamine and folate 4) GI Bleed- EGD today when patient stable Subjective Date patient seen: Jul 19, 2018 Time patient seen: 08:57 ROS Limited/Unobtainable: Yes Allergies: Coded Allergies: LORAZEPAM (Verified Allergy, Unknown, 05/21/18) PENICILLINS (Verified Allergy, Unknown, 05/21/18) All Systems: reviewed and negative except above Subjective Patient remains confused somnolent. Tx to ICU for active GI bleed Objective Last 24 Hour Vital Signs Date Time Temp Pulse Resp B/P (MAP) Pulse Ox O2 Delivery O2 Flow Rate FiO2 07/19/18 07:00 93 16 114/52 (72) 97 07/19/18 06:00 96 16 120/52 (74) 97 07/19/18 05:00 97 18 105/54 (71) 98 07/19/18 04:00 97.3 97 16 112/47 (68) 99 97.3 07/19/18 04:00 97 07/19/18 03:00 100 16 108/54 (72) 99 07/19/18 02:00 98 16 115/57 (76) 98 07/19/18 01:00 97 15 113/55 (74) 98 07/19/18 00:00 95 07/19/18 00:00 97.6 96 15 114/54 (74) 98 97.6 07/18/18 23:00 95 15 114/54 (74) 98 07/18/18 22:00 95 17 110/55 (73) 97 07/18/18 21:00 Room Air 07/18/18 21:00 93 15 128/61 (83) 99 07/18/18 20:00 94 07/18/18 20:00 98.2 94 15 117/63 (81) 97 98.2 07/18/18 19:00 92 15 113/64 (80) 97 07/18/18 16:00 97.5 91 20 116/69 (85) 99 97.5 07/18/18 16:00 91 07/18/18 12:00 79 07/18/18 11:35 97.5 86 14 113/69 (84) 99 97.5 07/18/18 09:00 Room Air Intake and Output 07/18/18 07/19/18 19:00 07:00 Intake Total 125 ml 1675 ml Output Total 50 ml 920 ml Balance 75 ml 755 ml IV Total 125 ml 1675 ml Output Urine Total 50 ml 480 ml Other 440 ml # Bowel Movements 2 Laboratory Tests 07/18/18 18:20: Urine Potassium Timed 28 07/18/18 20:45: Potassium Level 2.1*L 07/19/18 08:25: Potassium Level [Pending], White Blood Count [Pending], Red Blood Count [Pending ], Hemoglobin [Pending], Hematocrit [Pending], Mean Corpuscular Volume [Pending] , Mean Corpuscular Hemoglobin [Pending], Mean Corpuscular Hemoglobin Concent [ Pending], Red Cell Distribution Width [Pending], Platelet Count [Pending], Mean Platelet Volume [Pending], Neutrophils (%) (Auto) [Pending], Lymphocytes (%) ( Auto) [Pending], Monocytes (%) (Auto) [Pending], Eosinophils (%) (Auto) [Pending ], Basophils (%) (Auto) [Pending], Prothrombin Time [Pending], Prothromb Time International Ratio [Pending], Activated Partial Thromboplast Time [Pending], Sodium Level [Pending], Chloride Level [Pending], Carbon Dioxide Level [Pending] , Blood Urea Nitrogen [Pending], Creatinine [Pending], Estimat Glomerular Filtration Rate [Pending], Glucose Level [Pending], Calcium Level [Pending], Phosphorus Level [Pending], Magnesium Level [Pending], Total Bilirubin [Pending] , Aspartate Amino Transf (AST/SGOT) [Pending], Alanine Aminotransferase (ALT/ SGPT) [Pending], Alkaline Phosphatase [Pending], Total Protein [Pending], Albumin [Pending], Globulin [Pending] Height (Feet): 5 Height (Inches): 9.00 Weight (Pounds): 248 General Appearance: WD/WN, no apparent distress EENT: PERRL/EOMI Neck: normal alignment Cardiovascular: normal rate, regular rhythm Respiratory/Chest: lungs clear, normal breath sounds Abdomen: non tender, soft Edema: no edema noted Arm (L), no edema noted Arm (R), no edema noted Leg (L), no edema noted Leg (R), no edema noted Pedal (L), no edema noted Pedal (R), no edema noted Generalized Amos Pinon MD Jul 19, 2018 08:58
[2018-07-19 09:21] LABS: ALANINE AMINOTRANSFERASE 19 U/L (12-78); ALBUMIN 1.5 G/DL (3.4-5.0); ALBUMIN/GLOBULIN RATIO 0.3 (1.0-2.7); ALKALINE PHOSPHATASE 116 U/L (46-116); ANION GAP 8 mmol/L (5-15); ASPARTATE AMINO TRANSFERASE 97 U/L (15-37); BILIRUBIN,TOTAL 17.6 MG/DL (0.2-1.0); BLOOD UREA NITROGEN 10 mg/dL (7-18); CALCIUM 8.1 MG/DL (8.5-10.1); CARBON DIOXIDE 31 MMOL/L (21-32); CHLORIDE 116 MMOL/L (98-107); CREATININE 0.8 MG/DL (0.55-1.30); PHOSPHORUS 3.4 MG/DL (2.5-4.9); SODIUM 154 MMOL/L (136-145)
[2018-07-19 09:22] LABS: POTASSIUM 2.2 MMOL/L (3.5-5.1)
[2018-07-19] MEDS: D5NS w/KCl 40mEq 1000ml 1,000 ML IV SCH (09:35)
[2018-07-19 09:47] LABS: BILIRUBIN,DIRECT 11.8 MG/DL (0.0-0.3)
[2018-07-19] MEDS: Lactulose 20gm/30ml UDC ORAL SCH ×4 (09:50→21:00)
[2018-07-19] MEDS ORDERED: Lidocaine 1% Plain 30 ml INJ SCH (11:30)
[2018-07-19] MEDS ORDERED: Heparin 2000 units/Ns 1000ml IV SCH (11:30)
[2018-07-19 11:41] LABS: HEMATOCRIT 17.4 % (37.0-47.0); MEAN CORPUSCULAR VOLUME 99 FL (80-99); PLATELET COUNT 73 K/UL (150-450); RED BLOOD COUNT 1.76 M/UL (4.20-5.40); RED CELL DISTRIBUTION WIDTH 18.7 % (11.6-14.8); WHITE BLOOD COUNT 14.9 K/UL (4.8-10.8)
[2018-07-19 11:48] LABS: HEMOGLOBIN 5.6 G/DL (12.0-16.0)
--- NOTE | 2018-07-19 11:56 | Operative Note - PDOC ---
Operative Note Operative Note Date of Operation/Procedure: Jul 19, 2018 Pre-op Diagnosis: GI Bleeding, hypokalemia, critical care Procedure: left femoral central venous catheter insertion Post-op Diagnosis: same as pre-op Surgeon: beatrice Anesthesia: local Specimen: none Complications: none Condition: stable Estimated Blood Loss: minimal Drains: none Implant(s) used?: No Indications for Procedure 37F currently in ICU in critical condition. GI bleeding with encephalopathy, hypokalemia, critical care. Central venous catheter recommended and indicated for multiple medications, resuscitation, and care. Two physician consent obtained. Have not been able to establish contact with family in >24hrs and patient condition requires urgent need for procedure. Description of Procedure The patient was lying in the supine position. All persons involved were shielded with hairnets, facemasks and sterile gowns. With sterile-gloved hands the left femoral area was thoroughly sponged with chlorhexidine and allowed to dry. The area was draped with the large disposable sterile field provided in the kit. The skin and subcutaneous tissues superficial to the left femoral vein was anesthetized with 3 mL of 1% lidocaine. The femoral artery was palpated and avoided. A finder needle was advanced at a 45-degree angle toward the inguinal ligament until the syringe was seen to fill with blood. The needle was then held in place while the guide wire was advanced. The needle was then removed. A skin dilator was advanced over the guidewire and removed, then the triple-lumen catheter was advanced over the guide wire into proper position. The guide wire was removed and discarded. The ports were aspirated which showed good blood return indicating proper position into the vein and then carefully flushed with normal saline. The catheter was stabilized and sutured to the skin with 2-0 silk at 2 anchor ports. A sterile bio-occlusive dressing was placed over the catheter, including the insertion site. The patient tolerated the procedure well. George Sorto Jul 19, 2018 11:56
--- NOTE | 2018-07-19 12:28 | General Progress Note ---
Assessment/Plan Status: unchanged Assessment/Plan hepatic encephalopathy, liver failure hypokalemia alcohol w/d temazepam 15mg q6hr prn for alcohol w/d temazepam doesn't metabolize through liver hold when sedated Subjective Date patient seen: Jul 19, 2018 Neurologic/Psychiatric: Reports: anxiety, depressed Allergies: Coded Allergies: LORAZEPAM (Verified Allergy, Unknown, 05/21/18) PENICILLINS (Verified Allergy, Unknown, 05/21/18) Subjective the pt is calmer however confused, Objective Last 24 Hour Vital Signs Date Time Temp Pulse Resp B/P (MAP) Pulse Ox O2 Delivery O2 Flow Rate FiO2 07/19/18 10:00 92 17 114/53 (73) 98 07/19/18 09:00 98.2 96 15 113/52 (72) 98 98.2 07/19/18 09:00 Room Air 07/19/18 08:00 96 07/19/18 08:00 96 16 117/55 (75) 98 07/19/18 07:00 93 16 114/52 (72) 97 07/19/18 06:00 96 16 120/52 (74) 97 07/19/18 05:00 97 18 105/54 (71) 98 07/19/18 04:00 97.3 97 16 112/47 (68) 99 97.3 07/19/18 04:00 97 07/19/18 03:00 100 16 108/54 (72) 99 07/19/18 02:00 98 16 115/57 (76) 98 07/19/18 01:00 97 15 113/55 (74) 98 07/19/18 00:00 95 07/19/18 00:00 97.6 96 15 114/54 (74) 98 97.6 07/18/18 23:00 95 15 114/54 (74) 98 07/18/18 22:00 95 17 110/55 (73) 97 07/18/18 21:00 Room Air 07/18/18 21:00 93 15 128/61 (83) 99 07/18/18 20:00 94 07/18/18 20:00 98.2 94 15 117/63 (81) 97 98.2 07/18/18 19:00 92 15 113/64 (80) 97 07/18/18 16:00 97.5 91 20 116/69 (85) 99 97.5 07/18/18 16:00 91 Intake and Output 07/18/18 07/19/18 19:00 07:00 Intake Total 125 ml 1675 ml Output Total 50 ml 920 ml Balance 75 ml 755 ml IV Total 125 ml 1675 ml Output Urine Total 50 ml 480 ml Other 440 ml # Bowel Movements 2 Laboratory Tests 07/18/18 18:20: Urine Potassium Timed 28 07/18/18 20:45: Potassium Level 2.1*L 07/19/18 08:25: Potassium Level 2.2*L, White Blood Count 14.9H, Red Blood Count 1.76L, Hemoglobin 5.6*L, Hematocrit 17.4L, Mean Corpuscular Volume 99, Mean Corpuscular Hemoglobin 32.0H, Mean Corpuscular Hemoglobin Concent 32.4, Red Cell Distribution Width 18.7H, Platelet Count 73L, Mean Platelet Volume 7.3, Neutrophils (%) (Auto) , Lymphocytes (%) (Auto) , Monocytes (%) (Auto) , Eosinophils (%) (Auto) , Basophils (%) (Auto) , Differential Total Cells Counted 100, Neutrophils % (Manual) 78H, Lymphocytes % (Manual) 5L, Monocytes % (Manual) 14H, Eosinophils % (Manual) 0, Basophils % (Manual) 0, Myelocytes % 1H , Band Neutrophils 2, Platelet Estimate DecreasedL, Platelet Morphology Normal, Hypochromasia 1+, Anisocytosis 1+, Prothrombin Time 20.4H, Prothromb Time International Ratio 2.0H, Activated Partial Thromboplast Time 30, Sodium Level 154H, Chloride Level 116H, Carbon Dioxide Level 31, Anion Gap 8, Blood Urea Nitrogen 10, Creatinine 0.8, Estimat Glomerular Filtration Rate > 60, Glucose Level 127H, Calcium Level 8.1L, Phosphorus Level 3.4, Magnesium Level 1.7L, Total Bilirubin 17.6H, Direct Bilirubin 11.8H, Aspartate Amino Transf (AST/SGOT ) 97H, Alanine Aminotransferase (ALT/SGPT) 19, Alkaline Phosphatase 116, Total Protein 5.8L, Albumin 1.5L, Globulin 4.3, Albumin/Globulin Ratio 0.3L Height (Feet): 5 Height (Inches): 9.00 Weight (Pounds): 248 General Appearance: alert, confused, agitated Nyasia Maloney MD Jul 19, 2018 12:28
[2018-07-19] MEDS ORDERED: Propofol 200mg/20ml IV ONE (13:00)
[2018-07-19] MEDS ORDERED: Lidocaine 1% MPF 10mg/ml 5ml ONE (13:00)
--- NOTE | 2018-07-19 14:05 | Pre-Procedure Note/Attestation ---
Pre-Procedure Note/Attestation Complete Prior to Procedure Planned Procedure: not applicable Procedure Narrative: egd Indications for Procedure Pre-Operative Diagnosis: gib Attestation I attest that I discussed the nature of the procedure; its benefits; risks and complications; and alternatives (and the risks and benefits of such alternatives ), prior to the procedure, with the patient (or the patient's legal paper sales representative). I attest that, if there was a reasonable possibility of needing a blood transfusion, the patient (or the patient's legal paper sales representative) was given the [facility] standardized written summary, pursuant to the [place] Blood Safety Act ([place] Health and Safety Code # 1645, as amended). I attest that I re-evaluated the patient just prior to the surgery and that there has been no change in the patient's H&P, except as documented below: Christopher Rodriguez MD Jul 19, 2018 14:05
--- NOTE | 2018-07-19 14:05 | GI Progress Note ---
Subjective Subjective patient has liver disease and active GIB needs emergency EGD can not find reach family for consent will proceed with emergency consent Objective Last 24 Hour Vital Signs Date Time Temp Pulse Resp B/P (MAP) Pulse Ox O2 Delivery O2 Flow Rate FiO2 07/19/18 10:00 92 17 114/53 (73) 98 07/19/18 09:00 98.2 96 15 113/52 (72) 98 98.2 07/19/18 09:00 Room Air 07/19/18 08:00 96 07/19/18 08:00 96 16 117/55 (75) 98 07/19/18 07:00 93 16 114/52 (72) 97 07/19/18 06:00 96 16 120/52 (74) 97 07/19/18 05:00 97 18 105/54 (71) 98 07/19/18 04:00 97.3 97 16 112/47 (68) 99 97.3 07/19/18 04:00 97 07/19/18 03:00 100 16 108/54 (72) 99 07/19/18 02:00 98 16 115/57 (76) 98 07/19/18 01:00 97 15 113/55 (74) 98 07/19/18 00:00 95 07/19/18 00:00 97.6 96 15 114/54 (74) 98 97.6 07/18/18 23:00 95 15 114/54 (74) 98 07/18/18 22:00 95 17 110/55 (73) 97 07/18/18 21:00 Room Air 07/18/18 21:00 93 15 128/61 (83) 99 07/18/18 20:00 94 07/18/18 20:00 98.2 94 15 117/63 (81) 97 98.2 07/18/18 19:00 92 15 113/64 (80) 97 07/18/18 16:00 97.5 91 20 116/69 (85) 99 97.5 07/18/18 16:00 91 Intake and Output 07/18/18 07/19/18 19:00 07:00 Intake Total 125 ml 1675 ml Output Total 50 ml 920 ml Balance 75 ml 755 ml IV Total 125 ml 1675 ml Output Urine Total 50 ml 480 ml Other 440 ml # Bowel Movements 2 Laboratory Tests Test 07/18/18 18:20 07/18/18 20:45 07/19/18 08:25 Urine Potassium Timed 28 mmol/L (12-62) Potassium Level 2.1 MMOL/L (3.5-5.1) *L 2.2 MMOL/L (3.5-5.1) *L White Blood Count 14.9 K/UL (4.8-10.8) H Red Blood Count 1.76 M/UL (4.20-5.40) L Hemoglobin 5.6 G/DL (12.0-16.0) *L Hematocrit 17.4 % (37.0-47.0) L Mean Corpuscular Volume 99 FL (80-99) Mean Corpuscular Hemoglobin 32.0 PG (27.0-31.0) H Mean Corpuscular Hemoglobin Concent 32.4 G/DL (32.0-36.0) Red Cell Distribution Width 18.7 % (11.6-14.8) H Platelet Count 73 K/UL (150-450) L Mean Platelet Volume 7.3 FL (6.5-10.1) Neutrophils (%) (Auto) % (45.0-75.0) Lymphocytes (%) (Auto) % (20.0-45.0) Monocytes (%) (Auto) % (1.0-10.0) Eosinophils (%) (Auto) % (0.0-3.0) Basophils (%) (Auto) % (0.0-2.0) Differential Total Cells Counted 100 Neutrophils % (Manual) 78 % (45-75) H Lymphocytes % (Manual) 5 % (20-45) L Monocytes % (Manual) 14 % (1-10) H Eosinophils % (Manual) 0 % (0-3) Basophils % (Manual) 0 % (0-2) Myelocytes % 1 % (0-0) H Band Neutrophils 2 % (0-8) Platelet Estimate Decreased L Platelet Morphology Normal Hypochromasia 1+ Anisocytosis 1+ Prothrombin Time 20.4 SEC (9.30-11.50) H Prothromb Time International Ratio 2.0 (0.9-1.1) H Activated Partial Thromboplast Time 30 SEC (23-33) Sodium Level 154 MMOL/L (136-145) H Chloride Level 116 MMOL/L (98-107) H Carbon Dioxide Level 31 MMOL/L (21-32) Anion Gap 8 mmol/L (5-15) Blood Urea Nitrogen 10 mg/dL (7-18) Creatinine 0.8 MG/DL (0.55-1.30) Estimat Glomerular Filtration Rate > 60 mL/min (>60) Glucose Level 127 MG/DL (74-106) H Calcium Level 8.1 MG/DL (8.5-10.1) L Phosphorus Level 3.4 MG/DL (2.5-4.9) Magnesium Level 1.7 MG/DL (1.8-2.4) L Total Bilirubin 17.6 MG/DL (0.2-1.0) H Direct Bilirubin 11.8 MG/DL (0.0-0.3) H Aspartate Amino Transf (AST/SGOT) 97 U/L (15-37) H Alanine Aminotransferase (ALT/SGPT) 19 U/L (12-78) Alkaline Phosphatase 116 U/L (46-116) Total Protein 5.8 G/DL (6.4-8.2) L Albumin 1.5 G/DL (3.4-5.0) L Globulin 4.3 g/dL Albumin/Globulin Ratio 0.3 (1.0-2.7) L Height (Feet): 5 Height (Inches): 9.00 Weight (Pounds): 248 Christopher Rodriguez MD Jul 19, 2018 14:05
--- NOTE | 2018-07-19 15:22 | Immediate Post-Op Evaluation ---
Immediate Post-Op Evalulation Immediate Post-Op Evalulation Procedure: egd w/banding Date of Evaluation: Jul 19, 2018 Time of Evaluation: 15:23 IV Fluids: 400ml 0.9ns Blood Products: one unit pRBCs, one unit FFP Estimated Blood Loss: 300ml Blood Pressure Systolic: 118 Blood Pressure Diastolic: 66 Pulse Rate: 85 Respiratory Rate: 18 O2 Sat by Pulse Oximetry: 100 Temperature (Fahrenheit): 98.5 Pain Score (1-10): 0 Nausea: No Vomiting: No Complications none. was unable to stop the bleeding despite banding. patient remained hemodynamically stable and well saturated throughout the case. Patient to be transferred to [facility] for TIPS procedure Patient Status: awake, reacts, patent Hydration Status: adequate Drug: Danni Yarbrough MD Jul 19, 2018 15:22
[2018-07-19] MEDS: Dyna-Hex 2% Top Sol 2oz TOPIC SCH (20:00)
[2018-07-19 21:16] LABS: HEMATOCRIT 21.1 % (37.0-47.0); HEMOGLOBIN 7.2 G/DL (12.0-16.0); MEAN CORPUSCULAR VOLUME 93 FL (80-99); PLATELET COUNT 73 K/UL (150-450); RED BLOOD COUNT 2.26 M/UL (4.20-5.40); RED CELL DISTRIBUTION WIDTH 16.1 % (11.6-14.8)
[2018-07-19 21:40] LABS: ALANINE AMINOTRANSFERASE 27 U/L (12-78); ALBUMIN/GLOBULIN RATIO 0.5 (1.0-2.7); ALKALINE PHOSPHATASE 115 U/L (46-116); ANION GAP 8 mmol/L (5-15); ASPARTATE AMINO TRANSFERASE 96 U/L (15-37); BILIRUBIN,TOTAL 18.1 MG/DL (0.2-1.0); BLOOD UREA NITROGEN 8 mg/dL (7-18); CALCIUM 8.6 MG/DL (8.5-10.1); CARBON DIOXIDE 31 MMOL/L (21-32); CHLORIDE 116 MMOL/L (98-107); CREATININE 0.8 MG/DL (0.55-1.30); SODIUM 155 MMOL/L (136-145)
[2018-07-19 21:41] LABS: POTASSIUM 2.5 MMOL/L (3.5-5.1)
[2018-07-19 21:44] LABS: BILIRUBIN,DIRECT 12.2 MG/DL (0.0-0.3)
[2018-07-20] VITALS (24 sets, daily range): BP systolic 112–132; BP diastolic 56–92
[2018-07-20] MEDS: Octreotide Acetate 500 MCG in Sodium Chloride 500ML 499 ML IV SCH ×3 (00:11→20:34)
[2018-07-20] MEDS: Pantoprazole 80 MG in NS 250 ML IV SCH ×3 (00:11→20:34)
[2018-07-20] MEDS: D5NS w/KCl 40mEq 1000ml 1,000 ML IV SCH (05:00)
[2018-07-20 05:16] LABS: HEMATOCRIT 19.7 % (37.0-47.0); HEMOGLOBIN 7.1 G/DL (12.0-16.0); MEAN CORPUSCULAR VOLUME 93 FL (80-99); PLATELET COUNT 71 K/UL (150-450); RED BLOOD COUNT 2.12 M/UL (4.20-5.40); RED CELL DISTRIBUTION WIDTH 16.8 % (11.6-14.8); WHITE BLOOD COUNT 15.1 K/UL (4.8-10.8)
[2018-07-20 05:31] LABS: INR 1.7 (0.9-1.1)
[2018-07-20 05:48] LABS: ALANINE AMINOTRANSFERASE 27 U/L (12-78); ALBUMIN 1.9 G/DL (3.4-5.0); ALBUMIN/GLOBULIN RATIO 0.5 (1.0-2.7); ALKALINE PHOSPHATASE 115 U/L (46-116); ANION GAP 7 mmol/L (5-15); ASPARTATE AMINO TRANSFERASE 97 U/L (15-37); BILIRUBIN,TOTAL 17.5 MG/DL (0.2-1.0); BLOOD UREA NITROGEN 9 mg/dL (7-18); CALCIUM 8.2 MG/DL (8.5-10.1); CARBON DIOXIDE 31 MMOL/L (21-32); CHLORIDE 119 MMOL/L (98-107); CREATININE 0.7 MG/DL (0.55-1.30); PHOSPHORUS 2.1 MG/DL (2.5-4.9); SODIUM 156 MMOL/L (136-145)
[2018-07-20 05:51] LABS: POTASSIUM 2.6 MMOL/L (3.5-5.1)
[2018-07-20 05:52] LABS: BILIRUBIN,DIRECT 11.7 MG/DL (0.0-0.3)
--- NOTE | 2018-07-20 07:49 | Nephrology Progress Note ---
Assessment/Plan Assessment/Plan A/P 1) Hypok+/Mg/Phos - due to poor nutritional state from chronic alcohol abuse - continue K+ and Phos replacement 2) Tranaminitis- liver failure- per GI - NG per GI 3) Alochol Abuse- thiamine and folate 4) GI Bleed- on PPI gtt. Mgmt per GI 5) Hypernatremia- change IVFs Subjective Date patient seen: Jul 20, 2018 Time patient seen: 07:47 ROS Limited/Unobtainable: No Constitutional: Reports: weakness Allergies: Coded Allergies: LORAZEPAM (Verified Allergy, Unknown, 05/21/18) PENICILLINS (Verified Allergy, Unknown, 05/21/18) Subjective Patient more awake and alert Objective Last 24 Hour Vital Signs Date Time Temp Pulse Resp B/P (MAP) Pulse Ox O2 Delivery O2 Flow Rate FiO2 07/20/18 06:00 87 15 122/67 (85) 96 07/20/18 05:00 91 15 130/70 (90) 98 07/20/18 04:00 Room Air 07/20/18 04:00 86 07/20/18 04:00 98.3 87 15 124/66 (85) 97 98.3 07/20/18 03:00 86 14 113/64 (80) 95 07/20/18 02:00 89 16 120/62 (81) 98 07/20/18 01:00 88 15 124/68 (86) 97 07/20/18 00:00 97.3 87 15 122/60 (80) 96 97.3 07/20/18 00:00 Room Air 07/20/18 00:00 81 07/19/18 23:00 86 15 125/66 (85) 96 07/19/18 22:00 83 14 123/64 (83) 96 07/19/18 21:00 Room Air 07/19/18 21:00 82 15 128/69 (88) 97 07/19/18 20:00 97.5 83 15 129/70 (89) 98 97.5 07/19/18 20:00 83 07/19/18 19:00 80 16 125/65 (85) 100 07/19/18 18:00 82 15 128/73 (91) 100 07/19/18 17:00 80 14 125/70 (88) 100 07/19/18 16:00 83 07/19/18 16:00 84 14 136/77 (96) 100 07/19/18 15:22 209.3 85 18 100 07/19/18 15:00 98.5 83 15 116/50 (72) 98 98.5 07/19/18 14:00 90 15 125/66 (85) 98 07/19/18 13:00 89 15 118/62 (80) 98 07/19/18 12:00 88 07/19/18 12:00 80 14 122/60 (80) 98 07/19/18 11:00 88 17 115/53 (73) 98 07/19/18 10:00 92 17 114/53 (73) 98 07/19/18 09:00 98.2 96 15 113/52 (72) 98 98.2 07/19/18 09:00 Room Air 07/19/18 08:00 96 07/19/18 08:00 96 16 117/55 (75) 98 Intake and Output 07/19/18 07/20/18 19:00 07:00 Intake Total 1500 ml 1475 ml Output Total 3090 ml 440 ml Balance -1590 ml 1035 ml IV Total 1500 ml 575 ml Blood Product 900 ml Output Urine Total 450 ml Other 2640 ml 440 ml # Bowel Movements 2 Laboratory Tests 07/19/18 08:25: White Blood Count 14.9H, Red Blood Count 1.76L, Hemoglobin 5.6*L, Hematocrit 17.4L, Mean Corpuscular Volume 99, Mean Corpuscular Hemoglobin 32.0H, Mean Corpuscular Hemoglobin Concent 32.4, Red Cell Distribution Width 18.7H, Platelet Count 73L, Mean Platelet Volume 7.3, Neutrophils (%) (Auto) , Lymphocytes (%) (Auto) , Monocytes (%) (Auto) , Eosinophils (%) (Auto) , Basophils (%) (Auto) , Differential Total Cells Counted 100, Neutrophils % ( Manual) 78H, Lymphocytes % (Manual) 5L, Monocytes % (Manual) 14H, Eosinophils % (Manual) 0, Basophils % (Manual) 0, Myelocytes % 1H, Band Neutrophils 2, Platelet Estimate DecreasedL, Platelet Morphology Normal, Hypochromasia 1+, Anisocytosis 1+, Prothrombin Time 20.4H, Prothromb Time International Ratio 2.0H , Activated Partial Thromboplast Time 30, Sodium Level 154H, Potassium Level 2.2 *L, Chloride Level 116H, Carbon Dioxide Level 31, Anion Gap 8, Blood Urea Nitrogen 10, Creatinine 0.8, Estimat Glomerular Filtration Rate > 60, Glucose Level 127H, Calcium Level 8.1L, Phosphorus Level 3.4, Magnesium Level 1.7L, Total Bilirubin 17.6H, Direct Bilirubin 11.8H, Aspartate Amino Transf (AST/SGOT ) 97H, Alanine Aminotransferase (ALT/SGPT) 19, Alkaline Phosphatase 116, Total Protein 5.8L, Albumin 1.5L, Globulin 4.3, Albumin/Globulin Ratio 0.3L 07/19/18 21:00: White Blood Count 13.0H, Red Blood Count 2.26L, Hemoglobin 7.2L, Hematocrit 21.1L, Mean Corpuscular Volume 93, Mean Corpuscular Hemoglobin 31.7H, Mean Corpuscular Hemoglobin Concent 33.9, Red Cell Distribution Width 16.1H, Platelet Count 73L, Mean Platelet Volume 7.0, Neutrophils (%) (Auto) , Lymphocytes (%) (Auto) , Monocytes (%) (Auto) , Eosinophils (%) (Auto) , Basophils (%) (Auto) , Differential Total Cells Counted 100, Neutrophils % ( Manual) 79H, Lymphocytes % (Manual) 13L, Monocytes % (Manual) 7, Eosinophils % ( Manual) 0, Basophils % (Manual) 0, Band Neutrophils 1, Platelet Estimate DecreasedL, Platelet Morphology Normal, Hypochromasia 1+, Anisocytosis 1+, Sodium Level 155H, Potassium Level 2.5*L, Chloride Level 116H, Carbon Dioxide Level 31, Anion Gap 8, Blood Urea Nitrogen 8, Creatinine 0.8, Estimat Glomerular Filtration Rate > 60, Glucose Level 144H, Calcium Level 8.6, Total Bilirubin 18.1H, Direct Bilirubin 12.2H, Aspartate Amino Transf (AST/SGOT) 96H, Alanine Aminotransferase (ALT/SGPT) 27, Alkaline Phosphatase 115, Total Protein 6.3L, Albumin 2.0L, Globulin 4.3, Albumin/Globulin Ratio 0.5L 07/20/18 04:00: White Blood Count 15.1H, Red Blood Count 2.12L, Hemoglobin 7.1L, Hematocrit 19.7L, Mean Corpuscular Volume 93, Mean Corpuscular Hemoglobin 33.4H, Mean Corpuscular Hemoglobin Concent 35.9, Red Cell Distribution Width 16.8H, Platelet Count 71L, Mean Platelet Volume 7.9, Neutrophils (%) (Auto) , Lymphocytes (%) (Auto) , Monocytes (%) (Auto) , Eosinophils (%) (Auto) , Basophils (%) (Auto) , Neutrophils % (Manual) [Pending], Lymphocytes % (Manual) [Pending], Platelet Estimate [Pending], Platelet Morphology [Pending], Prothrombin Time 17.6H, Prothromb Time International Ratio 1.7H, Activated Partial Thromboplast Time 30, Sodium Level 156H, Potassium Level 2.6*L, Chloride Level 119H, Carbon Dioxide Level 31, Anion Gap 7, Blood Urea Nitrogen 9 , Creatinine 0.7, Estimat Glomerular Filtration Rate > 60, Glucose Level 121H, Calcium Level 8.2L, Phosphorus Level 2.1L, Magnesium Level 1.9, Total Bilirubin 17.5H, Direct Bilirubin 11.7H, Aspartate Amino Transf (AST/SGOT) 97H, Alanine Aminotransferase (ALT/SGPT) 27, Alkaline Phosphatase 115, Total Protein 6.0L, Albumin 1.9L, Globulin 4.1, Albumin/Globulin Ratio 0.5L Height (Feet): 5 Height (Inches): 9.00 Weight (Pounds): 248 General Appearance: WD/WN, no apparent distress EENT: normal ENT inspection Neck: normal alignment, supple Cardiovascular: normal rate, regular rhythm Respiratory/Chest: lungs clear, normal breath sounds Abdomen: decreased bowel sounds, distended, guarding Edema: 1+ Arm (L), 1+ Arm (R), 1+ Leg (L), 1+ Leg (R), 1+ Pedal (L), 1+ Pedal ( R), 1+ Generalized Amos Pinon MD Jul 20, 2018 07:49
[2018-07-20] MEDS: Lactulose 20gm/30ml UDC ORAL SCH ×4 (08:39→21:11)
--- NOTE | 2018-07-20 09:04 | Pulmonology Progress Note ---
Assessment/Plan Assessment/Plan 1. Malnutrition. 2. Hepatic failure. 3. Suspicion of alcohol abuse. 4. Severe hypokalemia. 5. Hyperglycemia. 6. Leukocytosis. 7. Anemia. DISCUSSION: 1. Anemia. S/p GI bleed; S/p EGD and banding. I will monitor hemoglobin and follow recs by GI. 2. Hypokalemia, severe. NG tube has been placed. She will receive IV and oral replacement. Seen by consult Nephrology to assist in this complicated process as she is severely hypokalemic. The etiology of this is unknown. Magnesium replaced.Labs pending this AM. 3. Suspicion of alcohol abuse. There is no clear history of alcohol; however, the AST/ALT ratio is suggestive of it. Mother was reporting she was consuming alcohol. I will investigate this further. Start thiamine and folic acid. 4. Hepatic failure. This is apparently a chronic problem. Seen by Gastroenterology to assist in this matter. I will also continue lactulose. Hold off on empiric antibiotics. I do not suspect SBP however paracentesis per GI. Also now on prednisone. I will follow carefully. Subjective Interval Events: s/p EGD and banding Constitutional: Reports: no symptoms HEENT: Repors: no symptoms Respiratory: Reports: no symptoms Cardiovascular: Reports: no symptoms Gastrointestinal/Abdominal: Reports: no symptoms Genitourinary: Reports: no symptoms Allergies: Coded Allergies: LORAZEPAM (Verified Allergy, Unknown, 05/21/18) PENICILLINS (Verified Allergy, Unknown, 05/21/18) Objective Last 24 Hour Vital Signs Date Time Temp Pulse Resp B/P (MAP) Pulse Ox O2 Delivery O2 Flow Rate FiO2 07/20/18 08:00 88 15 121/78 (92) 95 07/20/18 07:00 97.9 88 16 112/56 (74) 98 97.9 07/20/18 06:00 87 15 122/67 (85) 96 07/20/18 05:00 91 15 130/70 (90) 98 07/20/18 04:00 Room Air 07/20/18 04:00 86 07/20/18 04:00 98.3 87 15 124/66 (85) 97 98.3 07/20/18 03:00 86 14 113/64 (80) 95 07/20/18 02:00 89 16 120/62 (81) 98 07/20/18 01:00 88 15 124/68 (86) 97 07/20/18 00:00 97.3 87 15 122/60 (80) 96 97.3 07/20/18 00:00 Room Air 07/20/18 00:00 81 07/19/18 23:00 86 15 125/66 (85) 96 07/19/18 22:00 83 14 123/64 (83) 96 07/19/18 21:00 Room Air 07/19/18 21:00 82 15 128/69 (88) 97 07/19/18 20:00 97.5 83 15 129/70 (89) 98 97.5 07/19/18 20:00 83 07/19/18 19:00 80 16 125/65 (85) 100 07/19/18 18:00 82 15 128/73 (91) 100 07/19/18 17:00 80 14 125/70 (88) 100 07/19/18 16:00 83 07/19/18 16:00 84 14 136/77 (96) 100 07/19/18 15:22 209.3 85 18 100 07/19/18 15:00 98.5 83 15 116/50 (72) 98 98.5 07/19/18 14:00 90 15 125/66 (85) 98 07/19/18 13:00 89 15 118/62 (80) 98 07/19/18 12:00 88 07/19/18 12:00 80 14 122/60 (80) 98 07/19/18 11:00 88 17 115/53 (73) 98 07/19/18 10:00 92 17 114/53 (73) 98 Intake and Output 07/19/18 07/20/18 19:00 07:00 Intake Total 1500 ml 1600 ml Output Total 3090 ml 440 ml Balance -1590 ml 1160 ml IV Total 1500 ml 700 ml Blood Product 900 ml Output Urine Total 450 ml Other 2640 ml 440 ml # Bowel Movements 2 General Appearance: no acute distress HEENT: normocephalic Respiratory/Chest: chest wall non-tender, lungs clear Cardiovascular: normal peripheral pulses Abdomen: normal bowel sounds Laboratory Tests 07/19/18 21:00: White Blood Count 13.0H, Red Blood Count 2.26L, Hemoglobin 7.2L, Hematocrit 21.1L, Mean Corpuscular Volume 93, Mean Corpuscular Hemoglobin 31.7H, Mean Corpuscular Hemoglobin Concent 33.9, Red Cell Distribution Width 16.1H, Platelet Count 73L, Mean Platelet Volume 7.0, Neutrophils (%) (Auto) , Lymphocytes (%) (Auto) , Monocytes (%) (Auto) , Eosinophils (%) (Auto) , Basophils (%) (Auto) , Differential Total Cells Counted 100, Neutrophils % ( Manual) 79H, Lymphocytes % (Manual) 13L, Monocytes % (Manual) 7, Eosinophils % ( Manual) 0, Basophils % (Manual) 0, Band Neutrophils 1, Platelet Estimate DecreasedL, Platelet Morphology Normal, Hypochromasia 1+, Anisocytosis 1+, Sodium Level 155H, Potassium Level 2.5*L, Chloride Level 116H, Carbon Dioxide Level 31, Anion Gap 8, Blood Urea Nitrogen 8, Creatinine 0.8, Estimat Glomerular Filtration Rate > 60, Glucose Level 144H, Calcium Level 8.6, Total Bilirubin 18.1H, Direct Bilirubin 12.2H, Aspartate Amino Transf (AST/SGOT) 96H, Alanine Aminotransferase (ALT/SGPT) 27, Alkaline Phosphatase 115, Total Protein 6.3L, Albumin 2.0L, Globulin 4.3, Albumin/Globulin Ratio 0.5L 07/20/18 04:00: White Blood Count 15.1H, Red Blood Count 2.12L, Hemoglobin 7.1L, Hematocrit 19.7L, Mean Corpuscular Volume 93, Mean Corpuscular Hemoglobin 33.4H, Mean Corpuscular Hemoglobin Concent 35.9, Red Cell Distribution Width 16.8H, Platelet Count 71L, Mean Platelet Volume 7.9, Neutrophils (%) (Auto) , Lymphocytes (%) (Auto) , Monocytes (%) (Auto) , Eosinophils (%) (Auto) , Basophils (%) (Auto) , Neutrophils % (Manual) [Pending], Lymphocytes % (Manual) [Pending], Platelet Estimate [Pending], Platelet Morphology [Pending], Sodium Level 156H, Potassium Level 2.6*L, Chloride Level 119H, Carbon Dioxide Level 31 , Anion Gap 7, Blood Urea Nitrogen 9, Creatinine 0.7, Estimat Glomerular Filtration Rate > 60, Glucose Level 121H, Calcium Level 8.2L, Total Bilirubin 17.5H, Direct Bilirubin 11.7H, Aspartate Amino Transf (AST/SGOT) 97H, Alanine Aminotransferase (ALT/SGPT) 27, Alkaline Phosphatase 115, Total Protein 6.0L, Albumin 1.9L, Globulin 4.1, Albumin/Globulin Ratio 0.5L, Prothrombin Time 17.6H , Prothromb Time International Ratio 1.7H, Activated Partial Thromboplast Time 30, Phosphorus Level 2.1L, Magnesium Level 1.9 Current Medications Medications (Trade) Dose Ordered Sig/Abner Route PRN Reason Start Time Stop Time Status Last Admin Dose Admin Chlorhexidine Gluconate (Sierra-Hex 2%) 1 applic DAILY@2000 TOPIC 07/19/18 20:00 08/18/18 19:59 07/19/18 20:00 Dextrose/ Electrolytes 1,000 ml @ 50 mls/hr Q20H IV 07/20/18 09:00 08/19/18 08:59 Folic Acid (Folate) 1 mg DAILY ORAL 07/19/18 09:00 08/15/18 08:59 07/20/18 08:39 Lactulose (Cephulac) 30 gm FOUR TIMES A DAY ORAL 07/18/18 13:00 08/15/18 12:59 07/20/18 08:39 Levofloxacin 100 ml @ 100 mls/hr Q24H IVPB 07/19/18 10:30 07/23/18 10:29 07/19/18 10:30 Octreotide Acetate 500 mcg/ Sodium Chloride 500 ml @ 50 mls/hr Q10H IV 07/18/18 12:00 08/17/18 11:59 07/20/18 00:11 Ondansetron HCl (Zofran) 4 mg Q4H PRN IVP Nausea & Vomiting 07/18/18 13:30 08/15/18 17:29 Pantoprazole 80 mg/Sodium Chloride 250 ml @ 25 mls/hr Q10H IV 07/18/18 12:00 08/17/18 11:59 07/20/18 00:11 Potassium Phosphate 30 mm/ Sodium Chloride 285 ml @ 47.5 mls/hr ONCE ONCE IV 07/20/18 14:00 07/20/18 19:59 Potassium Chloride 100 ml @ 50 mls/hr ONCE ONCE IVPB 07/20/18 08:00 07/20/18 09:59 07/20/18 08:39 Potassium Chloride 100 ml @ 50 mls/hr ONCE ONCE IVPB 07/20/18 10:00 07/20/18 11:59 Rifaximin (Xifaxan) 550 mg EVERY 12 HOURS ORAL 07/18/18 21:00 07/23/18 08:59 07/20/18 08:39 Temazepam (Restoril) 15 mg Q6H PRN ORAL Agitation 07/18/18 17:30 07/25/18 11:29 Bowen Choudhury MD Jul 20, 2018 09:04
[2018-07-20] MEDS: D5W w/KCl 20mEq 1,000 ML IV SCH (09:27)
[2018-07-20] MEDS ORDERED: Potassium Phosphate 30 MM in NS 275 ML IV ONE (14:00)
[2018-07-20] MEDS ORDERED: Tubing IV Secondary IV ONE (18:31)
--- NOTE | 2018-07-20 18:34 | General Progress Note ---
Assessment/Plan Assessment/Plan Assessment - EtOH cirrhosis - Esophageal varicies - UGIB - s/p EGD and EBL - Anemia Recommendations - clear liquids - continue standostatin - monitor labs - replace lytes - OOI Subjective Allergies: Coded Allergies: LORAZEPAM (Verified Allergy, Unknown, 05/21/18) PENICILLINS (Verified Allergy, Unknown, 05/21/18) Subjective Feels better no abd pain s/p EGD/EBL d/w Dr. Rodriguez Objective Last 24 Hour Vital Signs Date Time Temp Pulse Resp B/P (MAP) Pulse Ox O2 Delivery O2 Flow Rate FiO2 07/20/18 18:00 98.0 98 19 115/82 (93) 95 98.0 07/20/18 17:00 90 18 120/67 (84) 95 07/20/18 16:00 Room Air 07/20/18 16:00 88 17 121/70 (87) 97 07/20/18 15:28 87 07/20/18 15:00 88 20 115/62 (79) 96 07/20/18 14:00 88 20 127/70 (89) 95 07/20/18 13:00 88 18 124/77 (93) 97 07/20/18 12:00 97.9 90 15 122/72 (89) 95 97.9 07/20/18 12:00 Room Air 07/20/18 11:55 92 07/20/18 11:00 91 18 129/70 (89) 95 07/20/18 10:00 91 19 132/92 (105) 94 07/20/18 09:00 89 17 126/68 (87) 97 07/20/18 08:00 86 07/20/18 08:00 Room Air 07/20/18 08:00 88 15 121/78 (92) 95 07/20/18 07:00 97.9 88 16 112/56 (74) 98 97.9 07/20/18 06:00 87 15 122/67 (85) 96 07/20/18 05:00 91 15 130/70 (90) 98 07/20/18 04:00 Room Air 07/20/18 04:00 86 07/20/18 04:00 98.3 87 15 124/66 (85) 97 98.3 07/20/18 03:00 86 14 113/64 (80) 95 07/20/18 02:00 89 16 120/62 (81) 98 07/20/18 01:00 88 15 124/68 (86) 97 07/20/18 00:00 97.3 87 15 122/60 (80) 96 97.3 07/20/18 00:00 Room Air 07/20/18 00:00 81 07/19/18 23:00 86 15 125/66 (85) 96 07/19/18 22:00 83 14 123/64 (83) 96 07/19/18 21:00 Room Air 07/19/18 21:00 82 15 128/69 (88) 97 07/19/18 20:00 97.5 83 15 129/70 (89) 98 97.5 07/19/18 20:00 83 07/19/18 19:00 80 16 125/65 (85) 100 Intake and Output 07/19/18 07/20/18 19:00 07:00 Intake Total 1500 ml 1600 ml Output Total 3090 ml 440 ml Balance -1590 ml 1160 ml IV Total 1500 ml 700 ml Blood Product 900 ml Output Urine Total 450 ml Other 2640 ml 440 ml # Bowel Movements 2 Laboratory Tests 07/19/18 21:00: White Blood Count 13.0H, Red Blood Count 2.26L, Hemoglobin 7.2L, Hematocrit 21.1L, Mean Corpuscular Volume 93, Mean Corpuscular Hemoglobin 31.7H, Mean Corpuscular Hemoglobin Concent 33.9, Red Cell Distribution Width 16.1H, Platelet Count 73L, Mean Platelet Volume 7.0, Neutrophils (%) (Auto) , Lymphocytes (%) (Auto) , Monocytes (%) (Auto) , Eosinophils (%) (Auto) , Basophils (%) (Auto) , Differential Total Cells Counted 100, Neutrophils % ( Manual) 79H, Lymphocytes % (Manual) 13L, Monocytes % (Manual) 7, Eosinophils % ( Manual) 0, Basophils % (Manual) 0, Band Neutrophils 1, Platelet Estimate DecreasedL, Platelet Morphology Normal, Hypochromasia 1+, Anisocytosis 1+, Sodium Level 155H, Potassium Level 2.5*L, Chloride Level 116H, Carbon Dioxide Level 31, Anion Gap 8, Blood Urea Nitrogen 8, Creatinine 0.8, Estimat Glomerular Filtration Rate > 60, Glucose Level 144H, Calcium Level 8.6, Total Bilirubin 18.1H, Direct Bilirubin 12.2H, Aspartate Amino Transf (AST/SGOT) 96H, Alanine Aminotransferase (ALT/SGPT) 27, Alkaline Phosphatase 115, Total Protein 6.3L, Albumin 2.0L, Globulin 4.3, Albumin/Globulin Ratio 0.5L 07/20/18 04:00: White Blood Count 15.1H, Red Blood Count 2.12L, Hemoglobin 7.1L, Hematocrit 19.7L, Mean Corpuscular Volume 93, Mean Corpuscular Hemoglobin 33.4H, Mean Corpuscular Hemoglobin Concent 35.9, Red Cell Distribution Width 16.8H, Platelet Count 71L, Mean Platelet Volume 7.9, Neutrophils (%) (Auto) , Lymphocytes (%) (Auto) , Monocytes (%) (Auto) , Eosinophils (%) (Auto) , Basophils (%) (Auto) , Differential Total Cells Counted 100, Neutrophils % ( Manual) 77H, Lymphocytes % (Manual) 12L, Monocytes % (Manual) 6, Eosinophils % ( Manual) 0, Basophils % (Manual) 0, Band Neutrophils 4, Platelet Estimate DecreasedL, Platelet Morphology Normal, Sodium Level 156H, Potassium Level 2.6*L , Chloride Level 119H, Carbon Dioxide Level 31, Anion Gap 7, Blood Urea Nitrogen 9, Creatinine 0.7, Estimat Glomerular Filtration Rate > 60, Glucose Level 121H, Calcium Level 8.2L, Total Bilirubin 17.5H, Direct Bilirubin 11.7H, Aspartate Amino Transf (AST/SGOT) 97H, Alanine Aminotransferase (ALT/SGPT) 27, Alkaline Phosphatase 115, Total Protein 6.0L, Albumin 1.9L, Globulin 4.1, Albumin/Globulin Ratio 0.5L, Myelocytes % 1H, Nucleated Red Blood Cells 1, Red Blood Cell Morphology Normal, Prothrombin Time 17.6H, Prothromb Time International Ratio 1.7H, Activated Partial Thromboplast Time 30, Phosphorus Level 2.1L, Magnesium Level 1.9 07/20/18 08:00: Ammonia 131H Height (Feet): 5 Height (Inches): 9.00 Weight (Pounds): 248 Objective WDWN AA woman NCAT supple CTA RR soft ND NT no edema Carlos Sandhu MD Jul 20, 2018 18:34
[2018-07-20] MEDS: Dyna-Hex 2% Top Sol 2oz TOPIC SCH (20:34)
[2018-07-21] VITALS (23 sets, daily range): BP systolic 89–143; BP diastolic 63–116
[2018-07-21 05:06] LABS: HEMATOCRIT 20.7 % (37.0-47.0); MEAN CORPUSCULAR VOLUME 94 FL (80-99); PLATELET COUNT 65 K/UL (150-450); RED BLOOD COUNT 2.21 M/UL (4.20-5.40); RED CELL DISTRIBUTION WIDTH 17.2 % (11.6-14.8); WHITE BLOOD COUNT 16.1 K/UL (4.8-10.8)
[2018-07-21 05:08] LABS: HEMOGLOBIN 6.9 G/DL (12.0-16.0)
[2018-07-21 05:25] LABS: ANION GAP 7 mmol/L (5-15); BLOOD UREA NITROGEN 9 mg/dL (7-18); CALCIUM 8.6 MG/DL (8.5-10.1); CARBON DIOXIDE 28 MMOL/L (21-32); CHLORIDE 120 MMOL/L (98-107); CREATININE 0.7 MG/DL (0.55-1.30); PHOSPHORUS 3.2 MG/DL (2.5-4.9); POTASSIUM 2.9 MMOL/L (3.5-5.1); SODIUM 155 MMOL/L (136-145)
[2018-07-21] MEDS: D5W w/KCl 20mEq 1,000 ML IV SCH (06:11)
[2018-07-21] MEDS: Pantoprazole 80 MG in NS 250 ML IV SCH ×2 (06:11→17:14)
[2018-07-21] MEDS: Octreotide Acetate 500 MCG in Sodium Chloride 500ML 499 ML IV SCH ×3 (06:13→21:08)
--- NOTE | 2018-07-21 06:49 | Pulmonology Progress Note ---
Assessment/Plan Assessment/Plan 1. Malnutrition. 2. Hepatic failure. 3. Suspicion of alcohol abuse. 4. Severe hypokalemia. 5. Hyperglycemia. 6. Leukocytosis. 7. Anemia. 8. GI bleed DISCUSSION: 1. Anemia. S/p GI bleed; S/p EGD and banding. I will monitor hemoglobin and follow recs by GI.transfuse per GI. 2. Hypokalemia, severe. She will receive IV and oral replacement. Seen by consult Nephrology to assist in this complicated process as she is severely hypokalemic. The etiology of this is unknown. Magnesium replaced. Labs again show low k 3. Suspicion of alcohol abuse. There is no clear history of alcohol; however, the AST/ALT ratio is suggestive of it. Mother was reporting she was consuming alcohol. I will investigate this further. Start thiamine and folic acid. 4. Hepatic failure. This is apparently a chronic problem. Seen by Gastroenterology to assist in this matter. I will also continue lactulose. Hold off on empiric antibiotics. I do not suspect SBP however paracentesis per GI. Also now on prednisone. I will follow carefully. Subjective Interval Events: Remains in ICU; Hgb 6.9 Constitutional: Reports: no symptoms HEENT: Repors: no symptoms Respiratory: Reports: no symptoms Cardiovascular: Reports: no symptoms Gastrointestinal/Abdominal: Reports: no symptoms Allergies: Coded Allergies: LORAZEPAM (Verified Allergy, Unknown, 05/21/18) PENICILLINS (Verified Allergy, Unknown, 05/21/18) Objective Last 24 Hour Vital Signs Date Time Temp Pulse Resp B/P (MAP) Pulse Ox O2 Delivery O2 Flow Rate FiO2 07/21/18 06:00 83 18 118/69 (85) 99 07/21/18 05:02 86 18 109/78 (88) 99 07/21/18 04:00 97.8 89 20 126/75 (92) 99 97.8 07/21/18 04:00 Room Air 07/21/18 04:00 90 07/21/18 03:00 88 18 119/73 (88) 98 07/21/18 02:00 87 17 124/71 (88) 98 07/21/18 01:00 85 16 116/76 (89) 98 07/21/18 00:29 88 07/21/18 00:28 Room Air 07/21/18 00:00 98.2 88 16 119/75 (90) 98 98.2 07/20/18 23:00 85 18 124/70 (88) 99 07/20/18 22:00 87 18 115/66 (82) 99 07/20/18 21:00 88 16 123/72 (89) 98 07/20/18 20:23 Room Air 07/20/18 20:22 90 07/20/18 20:00 97.3 90 18 122/72 (89) 98 97.3 07/20/18 19:00 89 16 121/73 (89) 96 07/20/18 18:30 Room Air 07/20/18 18:00 98.0 98 19 115/82 (93) 95 98.0 07/20/18 17:00 90 18 120/67 (84) 95 07/20/18 16:00 Room Air 07/20/18 16:00 88 17 121/70 (87) 97 07/20/18 15:28 87 07/20/18 15:00 88 20 115/62 (79) 96 07/20/18 14:00 88 20 127/70 (89) 95 07/20/18 13:00 88 18 124/77 (93) 97 07/20/18 12:00 97.9 90 15 122/72 (89) 95 97.9 07/20/18 12:00 Room Air 07/20/18 11:55 92 07/20/18 11:00 91 18 129/70 (89) 95 07/20/18 10:00 91 19 132/92 (105) 94 07/20/18 09:00 89 17 126/68 (87) 97 07/20/18 08:00 86 07/20/18 08:00 Room Air 07/20/18 08:00 88 15 121/78 (92) 95 07/20/18 07:00 97.9 88 16 112/56 (74) 98 97.9 Intake and Output 07/20/18 07/21/18 19:00 07:00 Intake Total 2315.0 ml 1695 ml Output Total 700 ml 500 ml Balance 1615.0 ml 1195 ml Intake Oral 365 ml 520 ml IV Total 1950.0 ml 1175 ml Output Urine Total 700 ml 300 ml Stool Total 200 ml # Bowel Movements 7 3 General Appearance: no acute distress HEENT: normocephalic Respiratory/Chest: chest wall non-tender, lungs clear Cardiovascular: normal peripheral pulses, normal rate Laboratory Tests 07/20/18 08:00: Ammonia 131H 07/21/18 05:00: White Blood Count 16.1H, Red Blood Count 2.21L, Hemoglobin 6.9*L, Hematocrit 20.7L, Mean Corpuscular Volume 94, Mean Corpuscular Hemoglobin 31.0, Mean Corpuscular Hemoglobin Concent 33.2, Red Cell Distribution Width 17.2H, Platelet Count 65L, Mean Platelet Volume 9.4, Neutrophils (%) (Auto) , Lymphocytes (%) (Auto) , Monocytes (%) (Auto) , Eosinophils (%) (Auto) , Basophils (%) (Auto) , Neutrophils % (Manual) [Pending], Lymphocytes % (Manual) [Pending], Platelet Estimate [Pending], Platelet Morphology [Pending], Sodium Level 155H, Potassium Level 2.9L, Chloride Level 120H, Carbon Dioxide Level 28, Anion Gap 7, Blood Urea Nitrogen 9, Creatinine 0.7, Estimat Glomerular Filtration Rate > 60, Glucose Level 118H, Calcium Level 8.6, Phosphorus Level 3.2 Current Medications Medications (Trade) Dose Ordered Sig/Abner Route PRN Reason Start Time Stop Time Status Last Admin Dose Admin Chlorhexidine Gluconate (Sierra-Hex 2%) 1 applic DAILY@2000 TOPIC 07/19/18 20:00 08/18/18 19:59 07/20/18 20:34 Dextrose/ Electrolytes 1,000 ml @ 50 mls/hr Q20H IV 07/20/18 09:00 08/19/18 08:59 07/21/18 06:11 Folic Acid (Folate) 1 mg DAILY ORAL 07/19/18 09:00 08/15/18 08:59 07/20/18 08:39 Lactulose (Cephulac) 30 gm FOUR TIMES A DAY ORAL 07/18/18 13:00 08/15/18 12:59 07/20/18 21:11 Levofloxacin 100 ml @ 100 mls/hr Q24H IVPB 07/19/18 10:30 07/23/18 10:29 07/20/18 09:54 Octreotide Acetate 500 mcg/ Sodium Chloride 500 ml @ 50 mls/hr Q10H IV 07/20/18 20:00 08/19/18 19:59 07/21/18 06:13 Ondansetron HCl (Zofran) 4 mg Q4H PRN IVP Nausea & Vomiting 07/18/18 13:30 08/15/18 17:29 Pantoprazole 80 mg/Sodium Chloride 250 ml @ 25 mls/hr Q10H IV 07/20/18 20:00 08/19/18 19:59 07/21/18 06:11 Rifaximin (Xifaxan) 550 mg EVERY 12 HOURS ORAL 07/18/18 21:00 07/23/18 08:59 07/20/18 21:11 Temazepam (Restoril) 15 mg Q6H PRN ORAL Agitation 07/18/18 17:30 07/25/18 11:29 Bowen Choudhury MD Jul 21, 2018 06:49
--- NOTE | 2018-07-21 08:00 | Nephrology Progress Note ---
Assessment/Plan Assessment/Plan A/P 1) Hypok+/Mg/Phos - due to poor nutritional state from chronic alcohol abuse - continue K+ as Mg and phos have been corrected 2) Tranaminitis- liver failure- per GI - NG per GI due to alcoholism 3) Alochol Abuse- thiamine and folate 4) GI Bleed- on PPI gtt. Mgmt per GI - Anemia-, Bld Tx per PCP 5) Hypernatremia- continue IVFs D5W Subjective Date patient seen: Jul 21, 2018 Time patient seen: 07:56 ROS Limited/Unobtainable: No Constitutional: Reports: weakness Allergies: Coded Allergies: LORAZEPAM (Verified Allergy, Unknown, 05/21/18) PENICILLINS (Verified Allergy, Unknown, 05/21/18) All Systems: reviewed and negative except above Subjective Patient more awake in no overt distress Objective Last 24 Hour Vital Signs Date Time Temp Pulse Resp B/P (MAP) Pulse Ox O2 Delivery O2 Flow Rate FiO2 07/21/18 07:00 85 16 128/76 (93) 99 07/21/18 06:00 83 18 118/69 (85) 99 07/21/18 05:02 86 18 109/78 (88) 99 07/21/18 04:00 97.8 89 20 126/75 (92) 99 97.8 07/21/18 04:00 Room Air 07/21/18 04:00 90 07/21/18 03:00 88 18 119/73 (88) 98 07/21/18 02:00 87 17 124/71 (88) 98 07/21/18 01:00 85 16 116/76 (89) 98 07/21/18 00:29 88 07/21/18 00:28 Room Air 07/21/18 00:00 98.2 88 16 119/75 (90) 98 98.2 07/20/18 23:00 85 18 124/70 (88) 99 07/20/18 22:00 87 18 115/66 (82) 99 07/20/18 21:00 88 16 123/72 (89) 98 07/20/18 20:23 Room Air 07/20/18 20:22 90 07/20/18 20:00 97.3 90 18 122/72 (89) 98 97.3 07/20/18 19:00 89 16 121/73 (89) 96 07/20/18 18:30 Room Air 07/20/18 18:00 98.0 98 19 115/82 (93) 95 98.0 07/20/18 17:00 90 18 120/67 (84) 95 07/20/18 16:00 Room Air 07/20/18 16:00 88 17 121/70 (87) 97 07/20/18 15:28 87 07/20/18 15:00 88 20 115/62 (79) 96 07/20/18 14:00 88 20 127/70 (89) 95 07/20/18 13:00 88 18 124/77 (93) 97 07/20/18 12:00 97.9 90 15 122/72 (89) 95 97.9 07/20/18 12:00 Room Air 07/20/18 11:55 92 07/20/18 11:00 91 18 129/70 (89) 95 07/20/18 10:00 91 19 132/92 (105) 94 07/20/18 09:00 89 17 126/68 (87) 97 07/20/18 08:00 86 07/20/18 08:00 Room Air 07/20/18 08:00 88 15 121/78 (92) 95 Intake and Output 07/20/18 07/21/18 19:00 07:00 Intake Total 2315.0 ml 1820 ml Output Total 700 ml 500 ml Balance 1615.0 ml 1320 ml Intake Oral 365 ml 520 ml IV Total 1950.0 ml 1300 ml Output Urine Total 700 ml 300 ml Stool Total 200 ml # Bowel Movements 7 3 Laboratory Tests 07/20/18 08:00: Ammonia 131H 07/21/18 05:00: White Blood Count 16.1H, Red Blood Count 2.21L, Hemoglobin 6.9*L, Hematocrit 20.7L, Mean Corpuscular Volume 94, Mean Corpuscular Hemoglobin 31.0, Mean Corpuscular Hemoglobin Concent 33.2, Red Cell Distribution Width 17.2H, Platelet Count 65L, Mean Platelet Volume 9.4, Neutrophils (%) (Auto) , Lymphocytes (%) (Auto) , Monocytes (%) (Auto) , Eosinophils (%) (Auto) , Basophils (%) (Auto) , Neutrophils % (Manual) [Pending], Lymphocytes % (Manual) [Pending], Platelet Estimate [Pending], Platelet Morphology [Pending], Sodium Level 155H, Potassium Level 2.9L, Chloride Level 120H, Carbon Dioxide Level 28, Anion Gap 7, Blood Urea Nitrogen 9, Creatinine 0.7, Estimat Glomerular Filtration Rate > 60, Glucose Level 118H, Calcium Level 8.6, Phosphorus Level 3.2 Height (Feet): 5 Height (Inches): 9.00 Weight (Pounds): 248 General Appearance: WD/WN, no apparent distress EENT: normal ENT inspection Neck: non-tender Cardiovascular: normal rate, regular rhythm Respiratory/Chest: lungs clear, normal breath sounds Abdomen: distended, guarding Edema: 1+ Arm (L), 1+ Arm (R), 1+ Leg (L), 1+ Leg (R), 1+ Pedal (L), 1+ Pedal ( R), 1+ Generalized Amos Pinon MD Jul 21, 2018 08:00
[2018-07-21] MEDS: Lactulose 20gm/30ml UDC ORAL SCH ×4 (08:23→21:07)
[2018-07-21] MEDS ORDERED: NS 275ml ONE ×2 (09:23→09:26)
[2018-07-21] MEDS ORDERED: NS 500ML ONE (09:26)
[2018-07-21] MEDS ORDERED: Tubing IV Secondary IV ONE (09:26)
[2018-07-21] MEDS ORDERED: Tubing Blood Filter IV ONE (09:26)
--- NOTE | 2018-07-21 13:14 | General Progress Note ---
Assessment/Plan Assessment/Plan Assessment - EtOH cirrhosis - Esophageal varicies - UGIB - s/p EGD and EBL - Anemia Recommendations - advance to full liquids - continue standostatin, but wean down to 1/2 rate - 1 unit PRBC today - OK to floor today from GI standpoint - monitor labs - replace lytes - OOB Subjective Allergies: Coded Allergies: LORAZEPAM (Verified Allergy, Unknown, 05/21/18) PENICILLINS (Verified Allergy, Unknown, 05/21/18) Subjective Feels better no abd pain H&H slightly lower Objective Last 24 Hour Vital Signs Date Time Temp Pulse Resp B/P (MAP) Pulse Ox O2 Delivery O2 Flow Rate FiO2 07/21/18 12:00 Room Air 07/21/18 12:00 82 18 89/70 (76) 96 07/21/18 11:00 83 16 121/73 (89) 96 07/21/18 10:00 91 20 119/65 (83) 98 07/21/18 09:00 88 21 143/116 (125) 99 07/21/18 08:00 Room Air 07/21/18 08:00 85 18 98/63 (75) 99 07/21/18 07:00 85 16 128/76 (93) 99 07/21/18 06:00 83 18 118/69 (85) 99 07/21/18 05:02 86 18 109/78 (88) 99 07/21/18 04:00 97.8 89 20 126/75 (92) 99 97.8 07/21/18 04:00 Room Air 07/21/18 04:00 90 07/21/18 03:00 88 18 119/73 (88) 98 07/21/18 02:00 87 17 124/71 (88) 98 07/21/18 01:00 85 16 116/76 (89) 98 07/21/18 00:29 88 07/21/18 00:28 Room Air 07/21/18 00:00 98.2 88 16 119/75 (90) 98 98.2 07/20/18 23:00 85 18 124/70 (88) 99 07/20/18 22:00 87 18 115/66 (82) 99 07/20/18 21:00 88 16 123/72 (89) 98 07/20/18 20:23 Room Air 9/8/18 20:22 90 07/20/18 20:00 97.3 90 18 122/72 (89) 98 97.3 07/20/18 19:00 89 16 121/73 (89) 96 07/20/18 18:30 Room Air 07/20/18 18:00 98.0 98 19 115/82 (93) 95 98.0 07/20/18 17:00 90 18 120/67 (84) 95 07/20/18 16:00 Room Air 07/20/18 16:00 88 17 121/70 (87) 97 07/20/18 15:28 87 07/20/18 15:00 88 20 115/62 (79) 96 07/20/18 14:00 88 20 127/70 (89) 95 Intake and Output 07/20/18 07/21/18 19:00 07:00 Intake Total 2315.0 ml 1820 ml Output Total 700 ml 500 ml Balance 1615.0 ml 1320 ml Intake Oral 365 ml 520 ml IV Total 1950.0 ml 1300 ml Output Urine Total 700 ml 300 ml Stool Total 200 ml # Bowel Movements 7 3 Laboratory Tests 07/21/18 05:00: White Blood Count 16.1H, Red Blood Count 2.21L, Hemoglobin 6.9*L, Hematocrit 20.7L, Mean Corpuscular Volume 94, Mean Corpuscular Hemoglobin 31.0, Mean Corpuscular Hemoglobin Concent 33.2, Red Cell Distribution Width 17.2H, Platelet Count 65L, Mean Platelet Volume 9.4, Neutrophils (%) (Auto) , Lymphocytes (%) (Auto) , Monocytes (%) (Auto) , Eosinophils (%) (Auto) , Basophils (%) (Auto) , Differential Total Cells Counted 100, Neutrophils % ( Manual) 73, Lymphocytes % (Manual) 17L, Monocytes % (Manual) 9, Eosinophils % ( Manual) 1, Basophils % (Manual) 0, Band Neutrophils 0, Platelet Estimate DecreasedL, Platelet Morphology Normal, Polychromasia 2+, Hypochromasia 1+, Anisocytosis 1+, Sodium Level 155H, Potassium Level 2.9L, Chloride Level 120H, Carbon Dioxide Level 28, Anion Gap 7, Blood Urea Nitrogen 9, Creatinine 0.7, Estimat Glomerular Filtration Rate > 60, Glucose Level 118H, Calcium Level 8.6, Phosphorus Level 3.2 Height (Feet): 5 Height (Inches): 9.00 Weight (Pounds): 248 Objective WDWN AA woman NCAT supple CTA RR soft ND NT no edema Carlos Sandhu MD Jul 21, 2018 13:14
[2018-07-21 15:40] LABS: HEMATOCRIT 22.7 % (37.0-47.0); HEMOGLOBIN 8.1 G/DL (12.0-16.0); MEAN CORPUSCULAR VOLUME 93 FL (80-99); PLATELET COUNT 65 K/UL (150-450); RED BLOOD COUNT 2.45 M/UL (4.20-5.40); RED CELL DISTRIBUTION WIDTH 17.4 % (11.6-14.8); WHITE BLOOD COUNT 17.1 K/UL (4.8-10.8)
[2018-07-21 15:41] LABS: BASOPHILS % (AUTO) 0.7 % (0.0-2.0); EOSINOPHILS % (AUTO) 1.3 % (0.0-3.0); LYMPHOCYTES % (AUTO) 15.3 % (20.0-45.0); MONOCYTES % (AUTO) 9.1 % (1.0-10.0); NEUTROPHILS % (AUTO) 73.6 % (45.0-75.0)
[2018-07-21] MEDS: Dyna-Hex 2% Top Sol 2oz TOPIC SCH (20:00)
[2018-07-22] VITALS (16 sets, daily range): BP systolic 111–135; BP diastolic 60–89
[2018-07-22] MEDS: D5W w/KCl 20mEq 1,000 ML IV SCH (01:20)
[2018-07-22] MEDS: Pantoprazole 80 MG in NS 250 ML IV SCH ×5 (03:25→22:55)
[2018-07-22 06:31] LABS: ANION GAP 6 mmol/L (5-15); BLOOD UREA NITROGEN 9 mg/dL (7-18); CARBON DIOXIDE 28 MMOL/L (21-32); CHLORIDE 122 MMOL/L (98-107); CREATININE 0.7 MG/DL (0.55-1.30); POTASSIUM 3.7 MMOL/L (3.5-5.1); SODIUM 155 MMOL/L (136-145)
--- NOTE | 2018-07-22 07:52 | Nephrology Progress Note ---
Assessment/Plan Assessment/Plan A/P 1) Hypok+/Mg/Phos - due to poor nutritional state from chronic alcohol abuse - corrected. 2) Tranaminitis- liver failure- per GI - elevated ammonia 3) Alochol Abuse- thiamine and folate 4) GI Bleed- on PPI gtt. Mgmt per GI - Anemia-, Bld Tx PRN, check Hgb today 5) Hypernatremia- continue IVFs D5W Subjective Date patient seen: Jul 22, 2018 Time patient seen: 07:46 ROS Limited/Unobtainable: Yes Allergies: Coded Allergies: LORAZEPAM (Verified Allergy, Unknown, 05/21/18) PENICILLINS (Verified Allergy, Unknown, 05/21/18) All Systems: reviewed and negative except above Subjective Patient more awake but still ill appearing Objective Last 24 Hour Vital Signs Date Time Temp Pulse Resp B/P (MAP) Pulse Ox O2 Delivery O2 Flow Rate FiO2 07/22/18 06:00 85 16 118/65 (82) 95 07/22/18 05:00 85 16 120/89 (99) 95 07/22/18 04:00 98.8 85 16 117/69 (85) 94 98.8 07/22/18 04:00 90 07/22/18 04:00 Room Air 07/22/18 04:00 85 07/22/18 03:00 88 17 118/65 (82) 95 07/22/18 02:00 90 16 119/60 (79) 97 07/22/18 01:00 98.2 90 16 116/79 (91) 97 98.2 07/22/18 00:00 98.2 87 16 119/70 (86) 97 98.2 07/22/18 00:00 88 07/22/18 00:00 90 07/22/18 00:00 Room Air 07/21/18 23:00 88 16 120/68 (85) 97 07/21/18 22:00 88 16 123/71 (88) 97 07/21/18 21:00 87 18 124/66 (85) 100 07/21/18 20:00 Room Air 07/21/18 20:00 98.3 88 18 122/68 (86) 100 98.3 07/21/18 20:00 87 07/21/18 19:00 88 18 115/78 (90) 100 07/21/18 18:00 87 18 134/75 (94) 96 07/21/18 17:00 89 17 120/70 (87) 96 07/21/18 16:00 87 07/21/18 16:00 88 18 116/68 (84) 96 07/21/18 16:00 Room Air 07/21/18 15:00 89 18 118/97 (104) 97 07/21/18 13:45 97.2 83 19 127/94 (105) 97 97.2 07/21/18 12:00 82 07/21/18 12:00 Room Air 07/21/18 12:00 82 18 89/70 (76) 96 07/21/18 11:00 83 16 121/73 (89) 96 07/21/18 10:00 91 20 119/65 (83) 98 07/21/18 09:00 88 21 143/116 (125) 99 07/21/18 08:00 Room Air 07/21/18 08:00 85 18 98/63 (75) 99 07/21/18 08:00 82 Intake and Output 07/21/18 07/22/18 19:00 07:00 Intake Total 1375 ml 1250 ml Output Total 1400 ml 1200 ml Balance -25 ml 50 ml Intake Oral 100 ml 150 ml IV Total 1025 ml 1100 ml Blood Product 250 ml Output Urine Total 895 ml 400 ml Stool Total 505 ml 800 ml # Bowel Movements 3 3 Laboratory Tests 07/21/18 14:00: White Blood Count 17.1H, Red Blood Count 2.45L, Hemoglobin 8.1L, Hematocrit 22.7L, Mean Corpuscular Volume 93, Mean Corpuscular Hemoglobin 32.9H, Mean Corpuscular Hemoglobin Concent 35.5, Red Cell Distribution Width 17.4H, Platelet Count 65L, Mean Platelet Volume 9.3, Neutrophils (%) (Auto) 73.6, Lymphocytes (%) (Auto) 15.3L, Monocytes (%) (Auto) 9.1, Eosinophils (%) (Auto) 1.3, Basophils (%) (Auto) 0.7, Ammonia 203H 07/21/18 19:00: Potassium Level 3.4L 07/22/18 05:30: Potassium Level 3.7, Sodium Level 155H, Chloride Level 122H, Carbon Dioxide Level 28, Anion Gap 6, Blood Urea Nitrogen 9, Creatinine 0.7, Estimat Glomerular Filtration Rate > 60, Glucose Level 114H, Calcium Level 9.0, Phosphorus Level 3.0, Magnesium Level 1.8 Height (Feet): 5 Height (Inches): 9.00 Weight (Pounds): 255 General Appearance: WD/WN, lethargic EENT: normal ENT inspection Neck: normal alignment, supple Cardiovascular: normal rate, regular rhythm Respiratory/Chest: lungs clear, normal breath sounds Abdomen: non tender, soft Edema: no edema noted Arm (L), no edema noted Arm (R), no edema noted Leg (L), no edema noted Leg (R), no edema noted Pedal (L), no edema noted Pedal (R), no edema noted Generalized Amos Pinon MD Jul 22, 2018 07:52
[2018-07-22] MEDS: Lactulose 20gm/30ml UDC ORAL SCH ×4 (08:43→21:23)
--- NOTE | 2018-07-22 09:39 | Pulmonology Progress Note ---
Assessment/Plan Assessment/Plan 1. Malnutrition. 2. Hepatic failure. 3. Suspicion of alcohol abuse. 4. Severe hypokalemia. 5. Hyperglycemia. 6. Leukocytosis. 7. Anemia. 8. GI bleed DISCUSSION: 1. Anemia. S/p GI bleed; S/p EGD and banding. I will monitor hemoglobin and follow recs by GI.transfuse per GI. Hgb pending this AM 2. Hypokalemia, severe. She will receive IV and oral replacement. Seen by consult Nephrology to assist in this complicated process as she is severely hypokalemic. The etiology of this is unknown. Magnesium replaced. COntinue electrolyte replacement. 3. Suspicion of alcohol abuse. There is no clear history of alcohol; however, the AST/ALT ratio is suggestive of it. Mother was reporting she was consuming alcohol. I will investigate this further. Start thiamine and folic acid. 4. Hepatic failure. This is apparently a chronic problem. Seen by Gastroenterology to assist in this matter. I will also continue lactulose. Hold off on empiric antibiotics. I do not suspect SBP however paracentesis per GI. Also now on prednisone. I will consult ID given high WBC Possible steroid effect? I will follow carefully. Subjective Interval Events: Better; tolerating diet. Constitutional: Reports: no symptoms HEENT: Repors: no symptoms Respiratory: Reports: no symptoms Cardiovascular: Reports: no symptoms Gastrointestinal/Abdominal: Reports: no symptoms Allergies: Coded Allergies: LORAZEPAM (Verified Allergy, Unknown, 05/21/18) PENICILLINS (Verified Allergy, Unknown, 05/21/18) Objective Last 24 Hour Vital Signs Date Time Temp Pulse Resp B/P (MAP) Pulse Ox O2 Delivery O2 Flow Rate FiO2 07/22/18 06:00 85 16 118/65 (82) 95 07/22/18 05:00 85 16 120/89 (99) 95 07/22/18 04:00 98.8 85 16 117/69 (85) 94 98.8 07/22/18 04:00 90 07/22/18 04:00 Room Air 07/22/18 04:00 85 07/22/18 03:00 88 17 118/65 (82) 95 07/22/18 02:00 90 16 119/60 (79) 97 07/22/18 01:00 98.2 90 16 116/79 (91) 97 98.2 07/22/18 00:00 98.2 87 16 119/70 (86) 97 98.2 07/22/18 00:00 88 07/22/18 00:00 90 07/22/18 00:00 Room Air 07/21/18 23:00 88 16 120/68 (85) 97 07/21/18 22:00 88 16 123/71 (88) 97 07/21/18 21:00 87 18 124/66 (85) 100 07/21/18 20:00 Room Air 07/21/18 20:00 98.3 88 18 122/68 (86) 100 98.3 07/21/18 20:00 87 07/21/18 19:00 88 18 115/78 (90) 100 07/21/18 18:00 87 18 134/75 (94) 96 07/21/18 17:00 89 17 120/70 (87) 96 07/21/18 16:00 87 07/21/18 16:00 88 18 116/68 (84) 96 07/21/18 16:00 Room Air 07/21/18 15:00 89 18 118/97 (104) 97 07/21/18 13:45 97.2 83 19 127/94 (105) 97 97.2 07/21/18 12:00 82 07/21/18 12:00 Room Air 07/21/18 12:00 82 18 89/70 (76) 96 07/21/18 11:00 83 16 121/73 (89) 96 07/21/18 10:00 91 20 119/65 (83) 98 Intake and Output 07/21/18 07/22/18 19:00 07:00 Intake Total 1375 ml 1250 ml Output Total 1400 ml 1200 ml Balance -25 ml 50 ml Intake Oral 100 ml 150 ml IV Total 1025 ml 1100 ml Blood Product 250 ml Output Urine Total 895 ml 400 ml Stool Total 505 ml 800 ml # Bowel Movements 3 3 General Appearance: no acute distress HEENT: normocephalic Respiratory/Chest: chest wall non-tender, lungs clear Cardiovascular: normal peripheral pulses Abdomen: normal bowel sounds Laboratory Tests 07/21/18 14:00: White Blood Count 17.1H, Red Blood Count 2.45L, Hemoglobin 8.1L, Hematocrit 22.7L, Mean Corpuscular Volume 93, Mean Corpuscular Hemoglobin 32.9H, Mean Corpuscular Hemoglobin Concent 35.5, Red Cell Distribution Width 17.4H, Platelet Count 65L, Mean Platelet Volume 9.3, Neutrophils (%) (Auto) 73.6, Lymphocytes (%) (Auto) 15.3L, Monocytes (%) (Auto) 9.1, Eosinophils (%) (Auto) 1.3, Basophils (%) (Auto) 0.7, Ammonia 203H 07/21/18 19:00: Potassium Level 3.4L 07/22/18 05:30: Potassium Level 3.7, Sodium Level 155H, Chloride Level 122H, Carbon Dioxide Level 28, Anion Gap 6, Blood Urea Nitrogen 9, Creatinine 0.7, Estimat Glomerular Filtration Rate > 60, Glucose Level 114H, Calcium Level 9.0, Phosphorus Level 3.0, Magnesium Level 1.8 Current Medications Medications (Trade) Dose Ordered Sig/Abner Route PRN Reason Start Time Stop Time Status Last Admin Dose Admin Chlorhexidine Gluconate (Sierra-Hex 2%) 1 applic DAILY@2000 TOPIC 07/19/18 20:00 08/18/18 19:59 07/21/18 20:00 Dextrose/ Electrolytes 1,000 ml @ 50 mls/hr Q20H IV 07/20/18 09:00 08/19/18 08:59 07/22/18 01:20 Folic Acid (Folate) 1 mg DAILY ORAL 07/19/18 09:00 08/15/18 08:59 07/22/18 08:43 Lactulose (Cephulac) 30 gm FOUR TIMES A DAY ORAL 07/18/18 13:00 08/15/18 12:59 07/22/18 08:43 Levofloxacin 100 ml @ 100 mls/hr Q24H IVPB 07/21/18 14:00 07/28/18 13:59 07/21/18 14:00 Octreotide Acetate 500 mcg/ Sodium Chloride 500 ml @ 25 mls/hr Q20H IV 07/21/18 09:00 08/19/18 08:59 07/21/18 21:08 Ondansetron HCl (Zofran) 4 mg Q4H PRN IVP Nausea & Vomiting 07/18/18 13:30 08/15/18 17:29 Pantoprazole 80 mg/Sodium Chloride 250 ml @ 25 mls/hr Q10H IV 07/20/18 20:00 08/19/18 19:59 07/22/18 03:25 Rifaximin (Xifaxan) 550 mg EVERY 12 HOURS ORAL 07/18/18 21:00 08/20/18 20:59 07/22/18 08:43 Temazepam (Restoril) 15 mg Q6H PRN ORAL Agitation 07/18/18 17:30 07/25/18 11:29 Bowen Choudhury MD Jul 22, 2018 09:38
[2018-07-22 11:06] LABS: HEMATOCRIT 23.3 % (37.0-47.0); HEMOGLOBIN 7.8 G/DL (12.0-16.0); MEAN CORPUSCULAR VOLUME 94 FL (80-99); PLATELET COUNT 66 K/UL (150-450); RED BLOOD COUNT 2.47 M/UL (4.20-5.40); RED CELL DISTRIBUTION WIDTH 18.7 % (11.6-14.8)
[2018-07-22] MEDS: Octreotide Acetate 500 MCG in Sodium Chloride 500ML 499 ML IV SCH (12:15)
[2018-07-22] MEDS ORDERED: D5W w/KCl 20mEq 1,000 ML IV SCH (12:15)
--- NOTE | 2018-07-22 13:17 | Diagnostic Imaging Report ---
Indication: Shortness of breath Technique: One view of the chest Comparison: 07/16/2018 Findings: There are bilateral diffuse interstitial and airspace opacities, markedly worsened since 07/16/2018. The pleural spaces are probably clear. The heart size is upper limits of normal. Impression: Extensive bilateral diffuse infiltrates versus edema, markedly worsened since prior exam of 07/16/2018
--- NOTE | 2018-07-22 13:26 | GI Progress Note ---
Assessment/Plan Problems: (1) Liver failure ICD Codes: K72.90 - Hepatic failure, unspecified without coma SNOMED: 72045534 Qualifiers: Qualified Codes: K72.01 - Acute and subacute hepatic failure with coma (2) Altered level of consciousness ICD Codes: R40.4 - Transient alteration of awareness SNOMED: 6186976 (3) GI bleed ICD Codes: K92.2 - Gastrointestinal hemorrhage, unspecified SNOMED: 73037771 Qualifiers: Qualified Codes: K92.2 - Gastrointestinal hemorrhage, unspecified (4) Hypokalemia ICD Codes: E87.6 - Hypokalemia SNOMED: 16446749 (5) Hepatic encephalopathy ICD Codes: K72.90 - Hepatic failure, unspecified without coma SNOMED: 14195771 (6) Anemia ICD Codes: D64.9 - Anemia, unspecified SNOMED: 342273783 Qualifiers: Qualified Codes: D64.9 - Anemia, unspecified Status: stable Status Narrative Discussed with Dr. Rodriguez. Assessment/Plan Assessment - EtOH cirrhosis - Esophageal varicies - UGIB - s/p EGD and EBL - Anemia Recommendations - DO NOT reinsert NGT, can cause rebleed. - advance to full liquids - continue standostatin, but wean down to 1/2 rate - 1 unit PRBC today - OK to floor today from GI standpoint - monitor labs - replace lytes - OOB - needs TIPS The patient was seen and examined at bedside and all new and available data was reviewed in the patients chart. I agree with the above findings, impression and plan. (Patient seen earlier today. Signature stamp does not reflect patient encounter time.). - Christopher Rodriguez MD Subjective Subjective limited Objective Last 24 Hour Vital Signs Date Time Temp Pulse Resp B/P (MAP) Pulse Ox O2 Delivery O2 Flow Rate FiO2 07/22/18 12:00 Room Air 07/22/18 12:00 86 07/22/18 12:00 98.0 85 16 121/69 (86) 100 98.0 07/22/18 11:00 85 17 122/76 (91) 100 07/22/18 10:00 87 17 129/79 (96) 95 07/22/18 09:00 87 17 122/70 (87) 95 07/22/18 08:00 Room Air 07/22/18 08:00 86 07/22/18 08:00 85 16 130/82 (98) 95 07/22/18 07:00 97.8 87 16 111/61 (78) 94 97.8 07/22/18 06:00 85 16 118/65 (82) 95 07/22/18 05:00 85 16 120/89 (99) 95 07/22/18 04:00 98.8 85 16 117/69 (85) 94 98.8 07/22/18 04:00 90 07/22/18 04:00 Room Air 07/22/18 04:00 85 07/22/18 03:00 88 17 118/65 (82) 95 07/22/18 02:00 90 16 119/60 (79) 97 07/22/18 01:00 98.2 90 16 116/79 (91) 97 98.2 07/22/18 00:00 98.2 87 16 119/70 (86) 97 98.2 07/22/18 00:00 88 07/22/18 00:00 90 07/22/18 00:00 Room Air 07/21/18 23:00 88 16 120/68 (85) 97 07/21/18 22:00 88 16 123/71 (88) 97 07/21/18 21:00 87 18 124/66 (85) 100 07/21/18 20:00 Room Air 07/21/18 20:00 98.3 88 18 122/68 (86) 100 98.3 07/21/18 20:00 87 07/21/18 19:00 88 18 115/78 (90) 100 07/21/18 18:00 87 18 134/75 (94) 96 07/21/18 17:00 89 17 120/70 (87) 96 07/21/18 16:00 87 07/21/18 16:00 88 18 116/68 (84) 96 07/21/18 16:00 Room Air 07/21/18 15:00 89 18 118/97 (104) 97 07/21/18 13:45 97.2 83 19 127/94 (105) 97 97.2 Intake and Output 07/21/18 07/22/18 19:00 07:00 Intake Total 1375 ml 1350 ml Output Total 1400 ml 1200 ml Balance -25 ml 150 ml Intake Oral 100 ml 150 ml IV Total 1025 ml 1200 ml Blood Product 250 ml Output Urine Total 895 ml 400 ml Stool Total 505 ml 800 ml # Bowel Movements 3 3 Laboratory Tests Test 07/21/18 14:00 07/21/18 19:00 07/22/18 05:30 07/22/18 10:18 White Blood Count 17.1 K/UL (4.8-10.8) H 16.0 K/UL (4.8-10.8) H Red Blood Count 2.45 M/UL (4.20-5.40) L 2.47 M/UL (4.20-5.40) L Hemoglobin 8.1 G/DL (12.0-16.0) L 7.8 G/DL (12.0-16.0) L Hematocrit 22.7 % (37.0-47.0) L 23.3 % (37.0-47.0) L Mean Corpuscular Volume 93 FL (80-99) 94 FL (80-99) Mean Corpuscular Hemoglobin 32.9 PG (27.0-31.0) H 31.6 PG (27.0-31.0) H Mean Corpuscular Hemoglobin Concent 35.5 G/DL (32.0-36.0) 33.4 G/DL (32.0-36.0) Red Cell Distribution Width 17.4 % (11.6-14.8) H 18.7 % (11.6-14.8) H Platelet Count 65 K/UL (150-450) L 66 K/UL (150-450) L Mean Platelet Volume 9.3 FL (6.5-10.1) 8.5 FL (6.5-10.1) Neutrophils (%) (Auto) 73.6 % (45.0-75.0) % (45.0-75.0) Lymphocytes (%) (Auto) 15.3 % (20.0-45.0) L % (20.0-45.0) Monocytes (%) (Auto) 9.1 % (1.0-10.0) % (1.0-10.0) Eosinophils (%) (Auto) 1.3 % (0.0-3.0) % (0.0-3.0) Basophils (%) (Auto) 0.7 % (0.0-2.0) % (0.0-2.0) Ammonia 203 umol/L (11-32) H Potassium Level 3.4 MMOL/L (3.5-5.1) L 3.7 MMOL/L (3.5-5.1) Sodium Level 155 MMOL/L (136-145) H Chloride Level 122 MMOL/L (98-107) H Carbon Dioxide Level 28 MMOL/L (21-32) Anion Gap 6 mmol/L (5-15) Blood Urea Nitrogen 9 mg/dL (7-18) Creatinine 0.7 MG/DL (0.55-1.30) Estimat Glomerular Filtration Rate > 60 mL/min (>60) Glucose Level 114 MG/DL (74-106) H Calcium Level 9.0 MG/DL (8.5-10.1) Phosphorus Level 3.0 MG/DL (2.5-4.9) Magnesium Level 1.8 MG/DL (1.8-2.4) Differential Total Cells Counted 100 Neutrophils % (Manual) 81 % (45-75) H Lymphocytes % (Manual) 14 % (20-45) L Monocytes % (Manual) 1 % (1-10) Eosinophils % (Manual) 1 % (0-3) Basophils % (Manual) 0 % (0-2) Band Neutrophils 3 % (0-8) Platelet Estimate Decreased L Platelet Morphology Normal Polychromasia 1+ Hypochromasia 1+ Octavia Cells 1+ Height (Feet): 5 Height (Inches): 9.00 Weight (Pounds): 255 General Appearance: WD/WN, no apparent distress, alert Cardiovascular: normal rate Respiratory/Chest: normal breath sounds, no respiratory distress Abdominal Exam: normal bowel sounds, non tender, soft Extremities: normal range of motion, non-tender Markus Lebron NP Jul 22, 2018 13:26
--- NOTE | 2018-07-22 15:00 | General Progress Note ---
Assessment/Plan Status: stable Assessment/Plan hepatic encephalopathy, liver failure hypokalemia alcohol w/d temazepam 15mg q6hr prn for alcohol w/d temazepam doesn't metabolize through liver hold when sedated Subjective Date patient seen: Jul 22, 2018 Neurologic/Psychiatric: Reports: anxiety, depressed, emotional problems Allergies: Coded Allergies: LORAZEPAM (Verified Allergy, Unknown, 05/21/18) PENICILLINS (Verified Allergy, Unknown, 05/21/18) Subjective the pt is calmer less agitated Objective Last 24 Hour Vital Signs Date Time Temp Pulse Resp B/P (MAP) Pulse Ox O2 Delivery O2 Flow Rate FiO2 07/22/18 12:50 97.7 91 127/70 (89) 97.7 07/22/18 12:00 Room Air 07/22/18 12:00 86 07/22/18 12:00 98.0 85 16 121/69 (86) 100 98.0 07/22/18 11:00 85 17 122/76 (91) 100 07/22/18 10:00 87 17 129/79 (96) 95 07/22/18 09:00 87 17 122/70 (87) 95 07/22/18 08:00 Room Air 07/22/18 08:00 86 07/22/18 08:00 85 16 130/82 (98) 95 07/22/18 07:00 97.8 87 16 111/61 (78) 94 97.8 07/22/18 06:00 85 16 118/65 (82) 95 07/22/18 05:00 85 16 120/89 (99) 95 07/22/18 04:00 98.8 85 16 117/69 (85) 94 98.8 07/22/18 04:00 90 07/22/18 04:00 Room Air 07/22/18 04:00 85 07/22/18 03:00 88 17 118/65 (82) 95 07/22/18 02:00 90 16 119/60 (79) 97 07/22/18 01:00 98.2 90 16 116/79 (91) 97 98.2 07/22/18 00:00 98.2 87 16 119/70 (86) 97 98.2 07/22/18 00:00 88 07/22/18 00:00 90 07/22/18 00:00 Room Air 07/21/18 23:00 88 16 120/68 (85) 97 07/21/18 22:00 88 16 123/71 (88) 97 07/21/18 21:00 87 18 124/66 (85) 100 07/21/18 20:00 Room Air 07/21/18 20:00 98.3 88 18 122/68 (86) 100 98.3 07/21/18 20:00 87 07/21/18 19:00 88 18 115/78 (90) 100 07/21/18 18:00 87 18 134/75 (94) 96 07/21/18 17:00 89 17 120/70 (87) 96 07/21/18 16:00 87 07/21/18 16:00 88 18 116/68 (84) 96 07/21/18 16:00 Room Air 07/21/18 15:00 89 18 118/97 (104) 97 Intake and Output 07/21/18 07/22/18 19:00 07:00 Intake Total 1375 ml 1350 ml Output Total 1400 ml 1200 ml Balance -25 ml 150 ml Intake Oral 100 ml 150 ml IV Total 1025 ml 1200 ml Blood Product 250 ml Output Urine Total 895 ml 400 ml Stool Total 505 ml 800 ml # Bowel Movements 3 3 Laboratory Tests 07/21/18 19:00: Potassium Level 3.4L 07/22/18 05:30: Potassium Level 3.7, Sodium Level 155H, Chloride Level 122H, Carbon Dioxide Level 28, Anion Gap 6, Blood Urea Nitrogen 9, Creatinine 0.7, Estimat Glomerular Filtration Rate > 60, Glucose Level 114H, Calcium Level 9.0, Phosphorus Level 3.0, Magnesium Level 1.8 07/22/18 10:18: White Blood Count 16.0H, Red Blood Count 2.47L, Hemoglobin 7.8L, Hematocrit 23.3L, Mean Corpuscular Volume 94, Mean Corpuscular Hemoglobin 31.6H, Mean Corpuscular Hemoglobin Concent 33.4, Red Cell Distribution Width 18.7H, Platelet Count 66L, Mean Platelet Volume 8.5, Neutrophils (%) (Auto) , Lymphocytes (%) (Auto) , Monocytes (%) (Auto) , Eosinophils (%) (Auto) , Basophils (%) (Auto) , Differential Total Cells Counted 100, Neutrophils % ( Manual) 81H, Lymphocytes % (Manual) 14L, Monocytes % (Manual) 1, Eosinophils % ( Manual) 1, Basophils % (Manual) 0, Band Neutrophils 3, Platelet Estimate DecreasedL, Platelet Morphology Normal, Polychromasia 1+, Hypochromasia 1+, Octavia Cells 1+ Height (Feet): 5 Height (Inches): 9.00 Weight (Pounds): 255 General Appearance: no apparent distress, alert, confused Nyasia Maloney MD Jul 22, 2018 15:00
[2018-07-22] MEDS: Dyna-Hex 2% Top Sol 2oz TOPIC SCH (21:00)
[2018-07-23] VITALS: BP 114/68
--- NOTE | 2018-07-23 | Consultation ---
DATE OF CONSULTATION: 07/22/2018 NOTE: POOR AUDIO INFECTIOUS DISEASE CONSULTATION CONSULTING PHYSICIAN: Damian Ly M.D. This consult is for coverage of Dr. Cortez. PRIMARY ATTENDING PHYSICIAN: Bowen Choudhury M.D. REASON FOR CONSULT: Leukocytosis. HISTORY OF PRESENT ILLNESS: The patient is a 37-year-old female admitted on 07/16/2018. She was found on the ground vomiting blood and has bloody diarrhea and has altered mental status. The patient had central line placement in hospital, had EGD that showed esophageal varices. She was hypokalemic with decreased magnesium and phosphate and leukocytosis since admission, the highest level was yesterday at 17.1. the patient is noncommunicative , but follows commands. After the EGD, was put on clear liquid diet. PAST MEDICAL HISTORY: Likely alcoholic cirrhosis, has history of cholecystectomy. No other history obtainable. ALLERGIES: Allergic to lorazepam and penicillin. MEDICATIONS: Levaquin, octreotide, Protonix, folic acid, , lactulose, temazepam, and Zofran. REVIEW OF SYSTEMS: Unobtainable. SOCIAL HISTORY: History of alcohol abuse. According to nurse, is homeless. PHYSICAL EXAMINATION: GENERAL APPEARANCE: She is well developed, obese, no acute distress. VITAL SIGNS: Temperature 97.8 degrees, pulse 85, and blood pressure 122/76. HEAD AND NECK: She has icterus. HEART: Normal rate, has femoral line. LUNGS: Clear. ABDOMEN: Soft and nontender. rectal tube diarrhea. EXTREMITY: She has some edema in the lower extremity. LABORATORY AND DIAGNOSTIC DATA: The latest lab is sodium 155, potassium 3.7, chloride 122, bicarbonate 28, BUN 9, and creatinine 0.7. The last bilirubin was 2 days ago that showed bilirubin of 17.5, direct bilirubin of 11.7, AST 97, ALT 27, and albumin 1.9. Serology was negative for hepatitis. MRSA and VRE screen are positive. The patient has superficial wound in perirectal area. showed Klebsiella, Citrobacter, and Aeromonas. UA, wbc was 2 to 4. Abdominal ultrasound showed portal hypertension, splenomegaly , evidence of cirrhosis, evidence of privious cholecystectomy. Chest x-ray showed no definite acute process. Venous duplex showed no DVT. IMPRESSION: Leukocytosis, likely reactive due to blood loss. The patient has diarrhea, likely induced by lactulose, has cirrhosis of liver, hepatic encephalopathy ,esophageal variceal bleeding, portal hypertension, splenomegaly, MRSA and VRE colonization. Electrolyte abnormality including hypokalemia, decreased magnesium and phosphorus, that are improving. RECOMMENDATION: We will continue with Levaquin , will order a chest x-ray. We will follow up the laboratories. At the end of my exam, I thank Dr. Choudhury for involving me in the care of this patient. Damian Ly M.D. DR: ROSAURA JOB#: [id number] CC: ELLEN
[2018-07-23 04:00] VITALS: BP 121/71
[2018-07-23 04:54] LABS: HEMOGLOBIN 7.3 G/DL (12.0-16.0); MEAN CORPUSCULAR VOLUME 96 FL (80-99); PLATELET COUNT 55 K/UL (150-450); RED CELL DISTRIBUTION WIDTH 18.7 % (11.6-14.8); WHITE BLOOD COUNT 16.8 K/UL (4.8-10.8)
[2018-07-23 05:05] LABS: ALANINE AMINOTRANSFERASE 40 U/L (12-78); ALBUMIN 1.6 G/DL (3.4-5.0); ALBUMIN/GLOBULIN RATIO 0.4 (1.0-2.7); ALKALINE PHOSPHATASE 122 U/L (46-116); ANION GAP 3 mmol/L (5-15); ASPARTATE AMINO TRANSFERASE 171 U/L (15-37); BILIRUBIN,TOTAL 14.6 MG/DL (0.2-1.0); BLOOD UREA NITROGEN 11 mg/dL (7-18); CALCIUM 9.2 MG/DL (8.5-10.1); CARBON DIOXIDE 29 MMOL/L (21-32); CHLORIDE 123 MMOL/L (98-107); CREATININE 0.6 MG/DL (0.55-1.30); PHOSPHORUS 3.6 MG/DL (2.5-4.9); POTASSIUM 3.6 MMOL/L (3.5-5.1); SODIUM 155 MMOL/L (136-145)
[2018-07-23 05:19] LABS: BILIRUBIN,DIRECT 10.5 MG/DL (0.0-0.3)
[2018-07-23 08:00] VITALS: BP 116/65
--- NOTE | 2018-07-23 08:15 | Nephrology Progress Note ---
Assessment/Plan Assessment/Plan A/P 1) Hypok+/Mg/Phos- Corrected - due to poor nutritional state from chronic alcohol abuse 2) Tranaminitis- liver failure- per GI - elevated ammonia 3) Alcohol Abuse- thiamine and folate 4) GI Bleed- on PPI gtt. Mgmt per GI - Anemia-, Bld Tx PRN, 5) Hypernatremia- increase IVFs D5W as Na 155 Subjective Date patient seen: Jul 23, 2018 Time patient seen: 08:13 ROS Limited/Unobtainable: No Constitutional: Reports: weakness Allergies: Coded Allergies: LORAZEPAM (Verified Allergy, Unknown, 05/21/18) PENICILLINS (Verified Allergy, Unknown, 05/21/18) All Systems: reviewed and negative except above Subjective Patient more awake but still ill appearing. Tx out of MICU Objective Last 24 Hour Vital Signs Date Time Temp Pulse Resp B/P (MAP) Pulse Ox O2 Delivery O2 Flow Rate FiO2 07/23/18 04:00 86 07/23/18 04:00 97.0 85 20 121/71 (88) 99 97.0 07/23/18 04:00 Room Air 07/23/18 00:00 90 07/23/18 00:00 98.0 88 20 114/68 (83) 100 98.0 07/23/18 00:00 Room Air 07/22/18 20:00 Room Air 07/22/18 20:00 98.2 89 16 125/66 (85) 100 98.2 07/22/18 19:05 90 07/22/18 16:00 98.1 89 135/73 (93) 98 98.1 07/22/18 16:00 88 07/22/18 16:00 Room Air 07/22/18 12:50 97.7 91 127/70 (89) 100 97.7 07/22/18 12:00 Room Air 07/22/18 12:00 86 07/22/18 12:00 98.0 85 16 121/69 (86) 100 98.0 07/22/18 11:00 85 17 122/76 (91) 100 07/22/18 10:00 87 17 129/79 (96) 95 07/22/18 09:00 87 17 122/70 (87) 95 Intake and Output 07/22/18 07/23/18 19:00 07:00 Intake Total 1300.00 ml 1403 ml Output Total 500 ml 500 ml Balance 800.00 ml 903 ml Intake Oral 100 ml IV Total 1200.00 ml 1403 ml Output Urine Total 100 ml 300 ml Stool Total 400 ml 200 ml # Voids 100 1 # Bowel Movements 3 4 Laboratory Tests 07/22/18 10:18: White Blood Count 16.0H, Red Blood Count 2.47L, Hemoglobin 7.8L, Hematocrit 23.3L, Mean Corpuscular Volume 94, Mean Corpuscular Hemoglobin 31.6H, Mean Corpuscular Hemoglobin Concent 33.4, Red Cell Distribution Width 18.7H, Platelet Count 66L, Mean Platelet Volume 8.5, Neutrophils (%) (Auto) , Lymphocytes (%) (Auto) , Monocytes (%) (Auto) , Eosinophils (%) (Auto) , Basophils (%) (Auto) , Differential Total Cells Counted 100, Neutrophils % ( Manual) 81H, Lymphocytes % (Manual) 14L, Monocytes % (Manual) 1, Eosinophils % ( Manual) 1, Basophils % (Manual) 0, Band Neutrophils 3, Platelet Estimate DecreasedL, Platelet Morphology Normal, Polychromasia 1+, Hypochromasia 1+, [place] Cells 1+ 07/23/18 04:00: White Blood Count 16.8H, Red Blood Count 2.30L, Hemoglobin 7.3L, Hematocrit 22.0L, Mean Corpuscular Volume 96, Mean Corpuscular Hemoglobin 31.8H, Mean Corpuscular Hemoglobin Concent 33.2, Red Cell Distribution Width 18.7H, Platelet Count 55L, Mean Platelet Volume 10.0, Neutrophils (%) (Auto) , Lymphocytes (%) (Auto) , Monocytes (%) (Auto) , Eosinophils (%) (Auto) , Basophils (%) (Auto) , Neutrophils % (Manual) [Pending], Lymphocytes % (Manual) [Pending], Platelet Estimate [Pending], Platelet Morphology [Pending], Prothrombin Time 19.9H, Prothromb Time International Ratio 2.0H, Activated Partial Thromboplast Time 31, Sodium Level 155H, Potassium Level 3.6, Chloride Level 123H, Carbon Dioxide Level 29, Anion Gap 3L, Blood Urea Nitrogen 11, Creatinine 0.6, Estimat Glomerular Filtration Rate > 60, Glucose Level 118H, Calcium Level 9.2, Phosphorus Level 3.6, Magnesium Level 1.8, Total Bilirubin 14.6H, Direct Bilirubin 10.5H, Aspartate Amino Transf (AST/SGOT) 171H, Alanine Aminotransferase (ALT/SGPT) 40, Alkaline Phosphatase 122H, Total Protein 5.7L, Albumin 1.6L, Globulin 4.1, Albumin/Globulin Ratio 0.4L Height (Feet): 5 Height (Inches): 9.00 Weight (Pounds): 252 General Appearance: WD/WN, lethargic EENT: normal ENT inspection Neck: normal alignment, supple Cardiovascular: normal rate, regular rhythm Respiratory/Chest: lungs clear, normal breath sounds Abdomen: distended, guarding Edema: 1+ Arm (L), 1+ Arm (R), 1+ Leg (L), 1+ Leg (R), 1+ Pedal (L), 1+ Pedal ( R), 1+ Generalized Amos Pinon MD Jul 23, 2018 08:15
--- NOTE | 2018-07-23 08:53 | Endoscopy Procedure Note ---
Endoscopy Procedure Note General Indication for Procedure: gib Procedures Performed: EGD Operative Findings/Diagnosis: EV Specimen: none Pt Tolerated Procedure Well: Yes Estimated Blood Loss: none Anesthesia Anesthesiologist: see chart Anesthesia: MAC Inserted Devices Implant(s) used?: No GI Core Measures 50 yrs or older w/o bx or poly: Not Applicable 10yrs. F/U not recommended: Not Applicable Christopher Rodriguez MD Jul 23, 2018 08:53
[2018-07-23] MEDS: Pantoprazole 80 MG in NS 250 ML IV SCH (09:42)
[2018-07-23] MEDS: D5W w/KCl 20mEq 1,000 ML IV SCH ×2 (09:43→17:51)
[2018-07-23] MEDS: Lactulose 20gm/30ml UDC ORAL SCH ×4 (09:43→21:58)
[2018-07-23] MEDS: Octreotide Acetate 500 MCG in Sodium Chloride 500ML 499 ML IV SCH (09:43)
--- NOTE | 2018-07-23 10:52 | Infectious Diseases Prog Note ---
Assessment/Plan Assessment/Plan antibiotics : levoquin, rifaximin A 1. pneumonia 2. leucocytosis 3. cirrhosis 4. hepatic encephalopathy 5. anemia 6. thrombocytopenia P 1. d/c levoquin 2. start cefepime 3. will follow up cultures Subjective ROS Limited/Unobtainable: Yes Allergies: Coded Allergies: LORAZEPAM (Verified Allergy, Unknown, 05/21/18) PENICILLINS (Verified Allergy, Unknown, 05/21/18) Objective Vital Signs Last 24 Hour Vital Signs Date Time Temp Pulse Resp B/P (MAP) Pulse Ox O2 Delivery O2 Flow Rate FiO2 07/23/18 08:00 97.8 75 19 116/65 (82) 100 97.8 07/23/18 08:00 89 07/23/18 08:00 Room Air 07/23/18 04:00 86 07/23/18 04:00 97.0 85 20 121/71 (88) 99 97.0 07/23/18 04:00 Room Air 07/23/18 00:00 90 07/23/18 00:00 98.0 88 20 114/68 (83) 100 98.0 07/23/18 00:00 Room Air 07/22/18 20:00 Room Air 07/22/18 20:00 98.2 89 16 125/66 (85) 100 98.2 07/22/18 19:05 90 07/22/18 16:00 98.1 89 135/73 (93) 98 98.1 07/22/18 16:00 88 07/22/18 16:00 Room Air 07/22/18 12:50 97.7 91 127/70 (89) 100 97.7 07/22/18 12:00 Room Air 07/22/18 12:00 86 07/22/18 12:00 98.0 85 16 121/69 (86) 100 98.0 07/22/18 11:00 85 17 122/76 (91) 100 Height (Feet): 5 Height (Inches): 9.00 Weight (Pounds): 252 Respiratory/Chest: lungs clear Cardiovascular: normal rate, regular rhythm, no gallop/murmur Abdomen: soft, non tender Extremities: no edema Laboratory Tests Test 07/23/18 04:00 White Blood Count 16.8 K/UL (4.8-10.8) H Red Blood Count 2.30 M/UL (4.20-5.40) L Hemoglobin 7.3 G/DL (12.0-16.0) L Hematocrit 22.0 % (37.0-47.0) L Mean Corpuscular Volume 96 FL (80-99) Mean Corpuscular Hemoglobin 31.8 PG (27.0-31.0) H Mean Corpuscular Hemoglobin Concent 33.2 G/DL (32.0-36.0) Red Cell Distribution Width 18.7 % (11.6-14.8) H Platelet Count 55 K/UL (150-450) L Mean Platelet Volume 10.0 FL (6.5-10.1) Neutrophils (%) (Auto) % (45.0-75.0) Lymphocytes (%) (Auto) % (20.0-45.0) Monocytes (%) (Auto) % (1.0-10.0) Eosinophils (%) (Auto) % (0.0-3.0) Basophils (%) (Auto) % (0.0-2.0) Differential Total Cells Counted 100 Neutrophils % (Manual) 75 % (45-75) Lymphocytes % (Manual) 11 % (20-45) L Monocytes % (Manual) 8 % (1-10) Eosinophils % (Manual) 0 % (0-3) Basophils % (Manual) 0 % (0-2) Band Neutrophils 6 % (0-8) Nucleated Red Blood Cells 1 /100 WBC Platelet Estimate Decreased L Platelet Morphology Normal Anisocytosis 2+ Prothrombin Time 19.9 SEC (9.30-11.50) H Prothromb Time International Ratio 2.0 (0.9-1.1) H Activated Partial Thromboplast Time 31 SEC (23-33) Sodium Level 155 MMOL/L (136-145) H Potassium Level 3.6 MMOL/L (3.5-5.1) Chloride Level 123 MMOL/L (98-107) H Carbon Dioxide Level 29 MMOL/L (21-32) Anion Gap 3 mmol/L (5-15) L Blood Urea Nitrogen 11 mg/dL (7-18) Creatinine 0.6 MG/DL (0.55-1.30) Estimat Glomerular Filtration Rate > 60 mL/min (>60) Glucose Level 118 MG/DL (74-106) H Calcium Level 9.2 MG/DL (8.5-10.1) Phosphorus Level 3.6 MG/DL (2.5-4.9) Magnesium Level 1.8 MG/DL (1.8-2.4) Total Bilirubin 14.6 MG/DL (0.2-1.0) H Direct Bilirubin 10.5 MG/DL (0.0-0.3) H Aspartate Amino Transf (AST/SGOT) 171 U/L (15-37) H Alanine Aminotransferase (ALT/SGPT) 40 U/L (12-78) Alkaline Phosphatase 122 U/L (46-116) H Total Protein 5.7 G/DL (6.4-8.2) L Albumin 1.6 G/DL (3.4-5.0) L Globulin 4.1 g/dL Albumin/Globulin Ratio 0.4 (1.0-2.7) L Current Medications Medications (Trade) Dose Ordered Sig/Abner Route PRN Reason Start Time Stop Time Status Last Admin Dose Admin Chlorhexidine Gluconate (Sierra-Hex 2%) 1 applic DAILY@2000 TOPIC 07/22/18 20:00 08/18/18 19:59 07/22/18 21:00 Dextrose/ Electrolytes 1,000 ml @ 75 mls/hr [id number] IV 07/23/18 12:15 08/19/18 08:59 07/23/18 09:43 Folic Acid (Folate) 1 mg DAILY ORAL 07/23/18 09:00 08/15/18 08:59 07/23/18 09:44 Lactulose (Cephulac) 30 gm FOUR TIMES A DAY ORAL 07/22/18 18:00 08/15/18 17:59 07/23/18 09:43 Levofloxacin 100 ml @ 100 mls/hr Q24H IVPB 07/22/18 14:00 07/28/18 13:59 07/22/18 15:09 Octreotide Acetate 500 mcg/ Sodium Chloride 500 ml @ 25 mls/hr Q20H IV 07/22/18 12:15 08/19/18 08:59 07/23/18 09:43 Ondansetron HCl (Zofran) 4 mg Q4H PRN IVP Nausea & Vomiting 07/22/18 13:30 08/15/18 17:29 Pantoprazole 80 mg/Sodium Chloride 250 ml @ 25 mls/hr Q10H IV 07/22/18 12:15 08/19/18 19:59 07/23/18 09:42 Rifaximin (Xifaxan) 550 mg EVERY 12 HOURS ORAL 07/22/18 21:00 08/20/18 20:59 07/23/18 09:44 Temazepam (Restoril) 15 mg Q6H PRN ORAL Agitation 07/22/18 13:30 07/25/18 13:29 BENITO WATT Jul 23, 2018 10:52
--- NOTE | 2018-07-23 11:49 | Pulmonology Progress Note ---
Assessment/Plan Assessment/Plan 1. Malnutrition. 2. Hepatic failure. 3. Suspicion of alcohol abuse. 4. Severe hypokalemia. 5. Hyperglycemia. 6. Leukocytosis. 7. Anemia. 8. GI bleed 9. Possible pneumonia DISCUSSION: 1. Anemia. S/p GI bleed; S/p EGD and banding. I will monitor hemoglobin and follow recs by GI.transfuse per GI. Hgb now 7.3 2. Hypokalemia, severe. Now corrected. 3. Suspicion of alcohol abuse. There is no clear history of alcohol; however, the AST/ALT ratio is suggestive of it. Mother was reporting she was consuming alcohol. I will investigate this further. Start thiamine and folic acid. 4. Hepatic failure. This is apparently a chronic problem. Seen by Gastroenterology to assist in this matter. I will also continue lactulose. Hold off on empiric antibiotics. I do not suspect SBP however paracentesis per GI. Also now on prednisone. Seen by ID given high WBC Probably has pneumonia I will follow carefully. Subjective Interval Events: Seen by ID; started on Cefipime Constitutional: Reports: no symptoms HEENT: Repors: no symptoms Respiratory: Reports: no symptoms Cardiovascular: Reports: no symptoms Gastrointestinal/Abdominal: Reports: no symptoms Genitourinary: Reports: no symptoms Allergies: Coded Allergies: LORAZEPAM (Verified Allergy, Unknown, 05/21/18) PENICILLINS (Verified Allergy, Unknown, 05/21/18) Objective Last 24 Hour Vital Signs Date Time Temp Pulse Resp B/P (MAP) Pulse Ox O2 Delivery O2 Flow Rate FiO2 07/23/18 08:00 97.8 75 19 116/65 (82) 100 97.8 07/23/18 08:00 89 07/23/18 08:00 Room Air 07/23/18 04:00 86 07/23/18 04:00 97.0 85 20 121/71 (88) 99 97.0 07/23/18 04:00 Room Air 07/23/18 00:00 90 07/23/18 00:00 98.0 88 20 114/68 (83) 100 98.0 07/23/18 00:00 Room Air 07/22/18 20:00 Room Air 07/22/18 20:00 98.2 89 16 125/66 (85) 100 98.2 9/10/18 19:05 90 07/22/18 16:00 98.1 89 135/73 (93) 98 98.1 07/22/18 16:00 88 07/22/18 16:00 Room Air 07/22/18 12:50 97.7 91 127/70 (89) 100 97.7 07/22/18 12:00 Room Air 07/22/18 12:00 86 07/22/18 12:00 98.0 85 16 121/69 (86) 100 98.0 Intake and Output 07/22/18 07/23/18 19:00 07:00 Intake Total 1300.00 ml 1403 ml Output Total 500 ml 500 ml Balance 800.00 ml 903 ml Intake Oral 100 ml IV Total 1200.00 ml 1403 ml Output Urine Total 100 ml 300 ml Stool Total 400 ml 200 ml # Voids 100 1 # Bowel Movements 3 4 General Appearance: no acute distress HEENT: normocephalic Respiratory/Chest: chest wall non-tender, lungs clear Cardiovascular: normal peripheral pulses, normal rate Laboratory Tests 07/23/18 04:00: White Blood Count 16.8H, Red Blood Count 2.30L, Hemoglobin 7.3L, Hematocrit 22.0L, Mean Corpuscular Volume 96, Mean Corpuscular Hemoglobin 31.8H, Mean Corpuscular Hemoglobin Concent 33.2, Red Cell Distribution Width 18.7H, Platelet Count 55L, Mean Platelet Volume 10.0, Neutrophils (%) (Auto) , Lymphocytes (%) (Auto) , Monocytes (%) (Auto) , Eosinophils (%) (Auto) , Basophils (%) (Auto) , Differential Total Cells Counted 100, Neutrophils % ( Manual) 75, Lymphocytes % (Manual) 11L, Monocytes % (Manual) 8, Eosinophils % ( Manual) 0, Basophils % (Manual) 0, Band Neutrophils 6, Nucleated Red Blood Cells 1, Platelet Estimate DecreasedL, Platelet Morphology Normal, Anisocytosis 2+, Prothrombin Time 19.9H, Prothromb Time International Ratio 2.0H, Activated Partial Thromboplast Time 31, Sodium Level 155H, Potassium Level 3.6, Chloride Level 123H, Carbon Dioxide Level 29, Anion Gap 3L, Blood Urea Nitrogen 11, Creatinine 0.6, Estimat Glomerular Filtration Rate > 60, Glucose Level 118H, Calcium Level 9.2, Phosphorus Level 3.6, Magnesium Level 1.8, Total Bilirubin 14.6H, Direct Bilirubin 10.5H, Aspartate Amino Transf (AST/SGOT) 171H, Alanine Aminotransferase (ALT/SGPT) 40, Alkaline Phosphatase 122H, Total Protein 5.7L, Albumin 1.6L, Globulin 4.1, Albumin/Globulin Ratio 0.4L 07/23/18 11:00: Ammonia 184H Current Medications Medications (Trade) Dose Ordered Sig/Abner Route PRN Reason Start Time Stop Time Status Last Admin Dose Admin Cefepime HCl 2 gm/ Dextrose 110 ml @ 220 mls/hr EVERY 12 HOURS IVPB 07/23/18 12:00 07/30/18 11:59 Chlorhexidine Gluconate (Sierra-Hex 2%) 1 applic DAILY@2000 TOPIC 07/22/18 20:00 08/18/18 19:59 07/22/18 21:00 Dextrose/ Electrolytes 1,000 ml @ 75 mls/hr [id number] IV 07/23/18 12:15 08/19/18 08:59 07/23/18 09:43 Folic Acid (Folate) 1 mg DAILY ORAL 07/23/18 09:00 08/15/18 08:59 07/23/18 09:44 Lactulose (Cephulac) 30 gm FOUR TIMES A DAY ORAL 07/22/18 18:00 08/15/18 17:59 07/23/18 09:43 Octreotide Acetate 500 mcg/ Sodium Chloride 500 ml @ 25 mls/hr Q20H IV 07/22/18 12:15 08/19/18 08:59 07/23/18 09:43 Ondansetron HCl (Zofran) 4 mg Q4H PRN IVP Nausea & Vomiting 07/22/18 13:30 08/15/18 17:29 Pantoprazole 80 mg/Sodium Chloride 250 ml @ 25 mls/hr Q10H IV 07/22/18 12:15 08/19/18 19:59 07/23/18 09:42 Rifaximin (Xifaxan) 550 mg EVERY 12 HOURS ORAL 07/22/18 21:00 08/20/18 20:59 07/23/18 09:44 Temazepam (Restoril) 15 mg Q6H PRN ORAL Agitation 07/22/18 13:30 07/25/18 13:29 Bowen Choudhury MD Jul 23, 2018 11:49
[2018-07-23 12:00] VITALS: BP 126/73
[2018-07-23] MEDS: Cefepime HCl 2 GM in D5W 110 ML IVPB SCH ×2 (12:18→22:00)
--- NOTE | 2018-07-23 14:51 | GI Progress Note ---
Assessment/Plan Problems: (1) Liver failure ICD Codes: K72.90 - Hepatic failure, unspecified without coma SNOMED: 76675485 Qualifiers: Qualified Codes: K72.01 - Acute and subacute hepatic failure with coma (2) Altered level of consciousness ICD Codes: R40.4 - Transient alteration of awareness SNOMED: 1018997 (3) GI bleed ICD Codes: K92.2 - Gastrointestinal hemorrhage, unspecified SNOMED: 05415226 Qualifiers: Qualified Codes: K92.2 - Gastrointestinal hemorrhage, unspecified (4) Hypokalemia ICD Codes: E87.6 - Hypokalemia SNOMED: 33984463 (5) Hepatic encephalopathy ICD Codes: K72.90 - Hepatic failure, unspecified without coma SNOMED: 21800809 (6) Anemia ICD Codes: D64.9 - Anemia, unspecified SNOMED: 379888875 Qualifiers: Qualified Codes: D64.9 - Anemia, unspecified Status: unchanged Status Narrative Discussed with Dr. Rodriguez. Assessment/Plan Assessment - EtOH cirrhosis - Esophageal varicies - UGIB - s/p EGD and EBL - Anemia Recommendations - DO NOT reinsert NGT, can cause rebleed. - diet per ST - dc octreotide, dc ppi gtt - ppi BID - OK to floor today from GI standpoint - monitor labs - replace lytes - OOB - needs TIPS The patient was seen and examined at bedside and all new and available data was reviewed in the patients chart. I agree with the above findings, impression and plan. (Patient seen earlier today. Signature stamp does not reflect patient encounter time.). - Christopher Rodriguez MD Subjective Subjective limited Objective Last 24 Hour Vital Signs Date Time Temp Pulse Resp B/P (MAP) Pulse Ox O2 Delivery O2 Flow Rate FiO2 07/23/18 12:00 Room Air 07/23/18 12:00 97.5 89 20 126/73 (90) 99 97.5 07/23/18 12:00 90 07/23/18 08:00 97.8 75 19 116/65 (82) 100 97.8 07/23/18 08:00 89 07/23/18 08:00 Room Air 07/23/18 04:00 86 07/23/18 04:00 97.0 85 20 121/71 (88) 99 97.0 07/23/18 04:00 Room Air 07/23/18 00:00 90 07/23/18 00:00 98.0 88 20 114/68 (83) 100 98.0 07/23/18 00:00 Room Air 07/22/18 20:00 Room Air 07/22/18 20:00 98.2 89 16 125/66 (85) 100 98.2 07/22/18 19:05 90 07/22/18 16:00 98.1 89 135/73 (93) 98 98.1 07/22/18 16:00 88 07/22/18 16:00 Room Air Intake and Output 07/22/18 07/23/18 19:00 07:00 Intake Total 1300.00 ml 1403 ml Output Total 500 ml 500 ml Balance 800.00 ml 903 ml Intake Oral 100 ml IV Total 1200.00 ml 1403 ml Output Urine Total 100 ml 300 ml Stool Total 400 ml 200 ml # Voids 100 1 # Bowel Movements 3 4 Laboratory Tests Test 07/23/18 04:00 07/23/18 11:00 White Blood Count 16.8 K/UL (4.8-10.8) H Red Blood Count 2.30 M/UL (4.20-5.40) L Hemoglobin 7.3 G/DL (12.0-16.0) L Hematocrit 22.0 % (37.0-47.0) L Mean Corpuscular Volume 96 FL (80-99) Mean Corpuscular Hemoglobin 31.8 PG (27.0-31.0) H Mean Corpuscular Hemoglobin Concent 33.2 G/DL (32.0-36.0) Red Cell Distribution Width 18.7 % (11.6-14.8) H Platelet Count 55 K/UL (150-450) L Mean Platelet Volume 10.0 FL (6.5-10.1) Neutrophils (%) (Auto) % (45.0-75.0) Lymphocytes (%) (Auto) % (20.0-45.0) Monocytes (%) (Auto) % (1.0-10.0) Eosinophils (%) (Auto) % (0.0-3.0) Basophils (%) (Auto) % (0.0-2.0) Differential Total Cells Counted 100 Neutrophils % (Manual) 75 % (45-75) Lymphocytes % (Manual) 11 % (20-45) L Monocytes % (Manual) 8 % (1-10) Eosinophils % (Manual) 0 % (0-3) Basophils % (Manual) 0 % (0-2) Band Neutrophils 6 % (0-8) Nucleated Red Blood Cells 1 /100 WBC Platelet Estimate Decreased L Platelet Morphology Normal Anisocytosis 2+ Prothrombin Time 19.9 SEC (9.30-11.50) H Prothromb Time International Ratio 2.0 (0.9-1.1) H Activated Partial Thromboplast Time 31 SEC (23-33) Sodium Level 155 MMOL/L (136-145) H Potassium Level 3.6 MMOL/L (3.5-5.1) Chloride Level 123 MMOL/L (98-107) H Carbon Dioxide Level 29 MMOL/L (21-32) Anion Gap 3 mmol/L (5-15) L Blood Urea Nitrogen 11 mg/dL (7-18) Creatinine 0.6 MG/DL (0.55-1.30) Estimat Glomerular Filtration Rate > 60 mL/min (>60) Glucose Level 118 MG/DL (74-106) H Calcium Level 9.2 MG/DL (8.5-10.1) Phosphorus Level 3.6 MG/DL (2.5-4.9) Magnesium Level 1.8 MG/DL (1.8-2.4) Total Bilirubin 14.6 MG/DL (0.2-1.0) H Direct Bilirubin 10.5 MG/DL (0.0-0.3) H Aspartate Amino Transf (AST/SGOT) 171 U/L (15-37) H Alanine Aminotransferase (ALT/SGPT) 40 U/L (12-78) Alkaline Phosphatase 122 U/L (46-116) H Total Protein 5.7 G/DL (6.4-8.2) L Albumin 1.6 G/DL (3.4-5.0) L Globulin 4.1 g/dL Albumin/Globulin Ratio 0.4 (1.0-2.7) L Ammonia 184 umol/L (11-32) H Height (Feet): 5 Height (Inches): 9.00 Weight (Pounds): 252 General Appearance: no apparent distress, alert, confused Cardiovascular: normal rate Respiratory/Chest: normal breath sounds, no respiratory distress Abdominal Exam: normal bowel sounds, non tender, soft Extremities: non-tender Markus Lebron NP Jul 23, 2018 14:51
[2018-07-23 16:00] VITALS: BP 133/75
--- NOTE | 2018-07-23 19:46 | General Progress Note ---
Assessment/Plan Assessment/Plan hepatic encephalopathy, liver failure hypokalemia alcohol w/d temazepam 15mg q6hr prn for alcohol w/d temazepam doesn't metabolize through liver hold when sedated Subjective Date patient seen: Jul 23, 2018 Allergies: Coded Allergies: LORAZEPAM (Verified Allergy, Unknown, 05/21/18) PENICILLINS (Verified Allergy, Unknown, 05/21/18) Subjective the pt is calmer less agitated Objective Last 24 Hour Vital Signs Date Time Temp Pulse Resp B/P (MAP) Pulse Ox O2 Delivery O2 Flow Rate FiO2 07/23/18 16:00 97.5 96 20 133/75 (94) 100 97.5 07/23/18 16:00 Room Air 07/23/18 15:59 97 07/23/18 12:00 Room Air 07/23/18 12:00 97.5 89 20 126/73 (90) 99 97.5 07/23/18 12:00 90 07/23/18 08:00 97.8 75 19 116/65 (82) 100 97.8 07/23/18 08:00 89 07/23/18 08:00 Room Air 07/23/18 04:00 86 07/23/18 04:00 97.0 85 20 121/71 (88) 99 97.0 07/23/18 04:00 Room Air 07/23/18 00:00 90 07/23/18 00:00 98.0 88 20 114/68 (83) 100 98.0 07/23/18 00:00 Room Air 07/22/18 20:00 Room Air 07/22/18 20:00 98.2 89 16 125/66 (85) 100 98.2 Intake and Output 07/22/18 07/23/18 19:00 07:00 Intake Total 1300.00 ml 1403 ml Output Total 500 ml 500 ml Balance 800.00 ml 903 ml Intake Oral 100 ml IV Total 1200.00 ml 1403 ml Output Urine Total 100 ml 300 ml Stool Total 400 ml 200 ml # Voids 100 1 # Bowel Movements 3 4 Laboratory Tests 07/23/18 04:00: White Blood Count 16.8H, Red Blood Count 2.30L, Hemoglobin 7.3L, Hematocrit 22.0L, Mean Corpuscular Volume 96, Mean Corpuscular Hemoglobin 31.8H, Mean Corpuscular Hemoglobin Concent 33.2, Red Cell Distribution Width 18.7H, Platelet Count 55L, Mean Platelet Volume 10.0, Neutrophils (%) (Auto) , Lymphocytes (%) (Auto) , Monocytes (%) (Auto) , Eosinophils (%) (Auto) , Basophils (%) (Auto) , Differential Total Cells Counted 100, Neutrophils % ( Manual) 75, Lymphocytes % (Manual) 11L, Monocytes % (Manual) 8, Eosinophils % ( Manual) 0, Basophils % (Manual) 0, Band Neutrophils 6, Nucleated Red Blood Cells 1, Platelet Estimate DecreasedL, Platelet Morphology Normal, Anisocytosis 2+, Prothrombin Time 19.9H, Prothromb Time International Ratio 2.0H, Activated Partial Thromboplast Time 31, Sodium Level 155H, Potassium Level 3.6, Chloride Level 123H, Carbon Dioxide Level 29, Anion Gap 3L, Blood Urea Nitrogen 11, Creatinine 0.6, Estimat Glomerular Filtration Rate > 60, Glucose Level 118H, Calcium Level 9.2, Phosphorus Level 3.6, Magnesium Level 1.8, Total Bilirubin 14.6H, Direct Bilirubin 10.5H, Aspartate Amino Transf (AST/SGOT) 171H, Alanine Aminotransferase (ALT/SGPT) 40, Alkaline Phosphatase 122H, Total Protein 5.7L, Albumin 1.6L, Globulin 4.1, Albumin/Globulin Ratio 0.4L 07/23/18 11:00: Ammonia 184H Height (Feet): 5 Height (Inches): 9.00 Weight (Pounds): 252 Nyasia Maloney MD Jul 23, 2018 19:46
[2018-07-23 20:00] VITALS: BP 138/72
[2018-07-23] MEDS: Dyna-Hex 2% Top Sol 2oz TOPIC SCH (21:58)
[2018-07-23] MEDS: Pantoprazole Inj IVP SCH (21:58)
[2018-07-23] MEDS: Nystatin Susp 500,000 units/5ml ORAL SCH (21:59)
--- NOTE | 2018-07-23 22:45 | Procedure Note ---
DATE OF PROCEDURE: 07/23/2018 SURGEON: Christopher Rodriguez M.D. PROCEDURE: Upper endoscopy with banding and hemostasis, esophageal varices. ANESTHESIA: Per chart. INDICATION: Upper GI bleeding. REASON FOR PROCEDURE: The procedure, risks, benefits, and possible consequences, including hemorrhage, aspiration, perforation and infection, and alternative treatments, were explained to the patient/legal guardian by Dr. Christopher Rodriguez and the patient/legal guardian understood and accepted these risks. DESCRIPTION OF PROCEDURE: After informed consent was obtained and the patient was adequately sedated, Olympus upper endoscope was advanced from the mouth into the second portion of the duodenum and retroflexion was performed in the stomach. The patient had evidence of four of grade 3 distal esophageal varices, most probably the source of bleeding. There was one varix, which was already ruptured and can see the area where the bleeding was found. In the stomach, there was no obvious gastric varices. There was some evidence of portal hypertensive gastropathy without any obvious oozing blood in the stomach. At this time, we started a banding procedure. We put a total of four bands, but the patient started bleeding most probably from the ruptured varices. The bleeding was very significant. We tried to band that area again, it was not possible, removed and grabbed it with the band. At this point, we decided to clip it and successfully we were able to clip that area which was bleeding and that stopped the bleeding. Meanwhile, we had to do multiple epinephrine washes. 1 to 10,000 dilution epinephrine wash was done three times for control of bleeding. SUMMARY OF FINDINGS: Esophageal varices, actively bleeding, status post banding and hemostasis as above. RECOMMENDATIONS: The patient if she continues to bleed, we will need a TIPS procedure. We will request for possible transfer to higher level of care to the hospital contacted with the patient's insurance. We will continue after surgery Protonix, keep the patient NPO. Follow laboratories. Christopher Rodriguez M.D. DR: MARYANNE JOB#: [id number] CC:
[2018-07-24] VITALS: BP 135/74
[2018-07-24 04:00] VITALS: BP 133/74
[2018-07-24 04:29] LABS: HEMATOCRIT 22.3 % (37.0-47.0); HEMOGLOBIN 7.2 G/DL (12.0-16.0); MEAN CORPUSCULAR VOLUME 97 FL (80-99); PLATELET COUNT 53 K/UL (150-450); RED CELL DISTRIBUTION WIDTH 20.3 % (11.6-14.8); WHITE BLOOD COUNT 19.4 K/UL (4.8-10.8)
[2018-07-24 04:36] LABS: ANION GAP 6 mmol/L (5-15); BLOOD UREA NITROGEN 14 mg/dL (7-18); CALCIUM 9.5 MG/DL (8.5-10.1); CARBON DIOXIDE 27 MMOL/L (21-32); CHLORIDE 126 MMOL/L (98-107); CREATININE 0.7 MG/DL (0.55-1.30); POTASSIUM 3.4 MMOL/L (3.5-5.1); SODIUM 159 MMOL/L (136-145)
[2018-07-24 04:42] LABS: ALANINE AMINOTRANSFERASE 55 U/L (12-78); ALBUMIN 1.6 G/DL (3.4-5.0); ALKALINE PHOSPHATASE 130 U/L (46-116); ASPARTATE AMINO TRANSFERASE 236 U/L (15-37); BILIRUBIN,DIRECT 10.3 MG/DL (0.0-0.3); BILIRUBIN,TOTAL 14.5 MG/DL (0.2-1.0)
[2018-07-24 08:00] VITALS: BP 127/70
--- NOTE | 2018-07-24 08:12 | Nephrology Progress Note ---
Assessment/Plan Assessment/Plan A/P 1) Hypok+/Mg/Phos- Corrected - Replace K+ today 2) Tranaminitis/liver failure- per GI - elevated ammonia 3) Alcohol Abuse- thiamine and folate 4) GI Bleed- Mgmt per GI. Anemia-, Bld Tx PRN, 5) Hypernatremia- increased IVFs D5W Subjective Date patient seen: Jul 24, 2018 Time patient seen: 08:10 ROS Limited/Unobtainable: No Constitutional: Reports: weakness Allergies: Coded Allergies: LORAZEPAM (Verified Allergy, Unknown, 05/21/18) PENICILLINS (Verified Allergy, Unknown, 05/21/18) All Systems: reviewed and negative except above Subjective Patient ill appearing, in no overt distress Objective Last 24 Hour Vital Signs Date Time Temp Pulse Resp B/P (MAP) Pulse Ox O2 Delivery O2 Flow Rate FiO2 07/24/18 04:00 Nasal Cannula 2.0 07/24/18 04:00 97.3 95 20 133/74 (93) 99 97.3 07/24/18 04:00 91 07/24/18 00:00 Nasal Cannula 2.0 07/24/18 00:00 95 07/24/18 00:00 97.7 93 20 135/74 (94) 97 97.7 07/23/18 20:00 94 07/23/18 20:00 Room Air 07/23/18 20:00 98.6 91 20 138/72 (94) 99 98.6 07/23/18 20:00 Nasal Cannula 2.0 07/23/18 16:00 97.5 96 20 133/75 (94) 100 97.5 07/23/18 16:00 Room Air 07/23/18 15:59 97 07/23/18 12:00 Room Air 07/23/18 12:00 97.5 89 20 126/73 (90) 99 97.5 07/23/18 12:00 90 Intake and Output 07/23/18 07/24/18 19:00 07:00 Intake Total 1151.25 ml 1452.5 ml Output Total 1600 ml 1300 ml Balance -448.75 ml 152.5 ml Intake Oral 50 ml 480 ml IV Total 1101.25 ml 972.5 ml Output Urine Total 400 ml 500 ml Stool Total 1200 ml 800 ml # Bowel Movements 3 4 Laboratory Tests 07/23/18 11:00: Ammonia 184H 07/24/18 04:00: White Blood Count 19.4H, Red Blood Count 2.30L, Hemoglobin 7.2L, Hematocrit 22.3L, Mean Corpuscular Volume 97, Mean Corpuscular Hemoglobin 31.4H, Mean Corpuscular Hemoglobin Concent 32.3, Red Cell Distribution Width 20.3H, Platelet Count 53L, Mean Platelet Volume 8.8, Neutrophils (%) (Auto) , Lymphocytes (%) (Auto) , Monocytes (%) (Auto) , Eosinophils (%) (Auto) , Basophils (%) (Auto) , Differential Total Cells Counted 100, Neutrophils % ( Manual) 75, Lymphocytes % (Manual) 13L, Monocytes % (Manual) 11H, Eosinophils % (Manual) 1, Basophils % (Manual) 0, Band Neutrophils 0, Platelet Estimate DecreasedL, Platelet Morphology Normal, Hypochromasia 3+, Anisocytosis 2+, Spherocytes 2+, Sodium Level 159H, Potassium Level 3.4L, Chloride Level 126H, Carbon Dioxide Level 27, Anion Gap 6, Blood Urea Nitrogen 14, Creatinine 0.7, Estimat Glomerular Filtration Rate > 60, Glucose Level 115H, Calcium Level 9.5, Total Bilirubin 14.5H, Direct Bilirubin 10.3H, Aspartate Amino Transf (AST/SGOT ) 236H, Alanine Aminotransferase (ALT/SGPT) 55, Alkaline Phosphatase 130H, Total Protein 6.0L, Albumin 1.6L Height (Feet): 5 Height (Inches): 9.00 Weight (Pounds): 253 General Appearance: no apparent distress, alert EENT: normal ENT inspection, scleral icterus Neck: normal alignment, supple Cardiovascular: normal rate, regular rhythm Respiratory/Chest: lungs clear Abdomen: distended, guarding Edema: 1+ Arm (L), 1+ Arm (R), 1+ Leg (L), 1+ Leg (R), 1+ Pedal (L), 1+ Pedal ( R), 1+ Generalized Amos Pinon MD Jul 24, 2018 08:12
[2018-07-24] MEDS: Nystatin Susp 500,000 units/5ml ORAL SCH ×4 (08:44→21:10)
[2018-07-24] MEDS: Lactulose 20gm/30ml UDC ORAL SCH ×4 (08:44→21:10)
[2018-07-24] MEDS: Pantoprazole Inj IVP SCH ×2 (08:44→21:10)
[2018-07-24] MEDS: Cefepime HCl 2 GM in D5W 110 ML IVPB SCH ×2 (08:45→21:10)
[2018-07-24] MEDS: D5W w/KCl 20mEq 1,000 ML IV SCH ×2 (08:46→18:34)
--- NOTE | 2018-07-24 09:36 | Pulmonology Progress Note ---
Assessment/Plan Assessment/Plan 1. Malnutrition. 2. Hepatic failure. 3. Suspicion of alcohol abuse. 4. Severe hypokalemia. 5. Hyperglycemia. 6. Leukocytosis. 7. Anemia. 8. GI bleed 9. Possible pneumonia DISCUSSION: 1. Anemia. S/p GI bleed; S/p EGD and banding. I will monitor hemoglobin and follow recs by GI.transfuse per GI. 2. Hypokalemia, severe. Now corrected. 3. Suspicion of alcohol abuse. There is no clear history of alcohol; however, the AST/ALT ratio is suggestive of it. Mother was reporting she was consuming alcohol. I will investigate this further. Start thiamine and folic acid. 4. Hepatic failure. This is apparently a chronic problem. Seen by Gastroenterology to assist in this matter. I will also continue lactulose. Hold off on empiric antibiotics. I do not suspect SBP however paracentesis per GI. Also now on prednisone. Seen by ID given high WBC Probably has pneumonia I will follow carefully. Subjective Interval Events: Looking better. No new events Constitutional: Reports: no symptoms HEENT: Repors: no symptoms Respiratory: Reports: no symptoms Cardiovascular: Reports: no symptoms Gastrointestinal/Abdominal: Reports: no symptoms Allergies: Coded Allergies: LORAZEPAM (Verified Allergy, Unknown, 05/21/18) PENICILLINS (Verified Allergy, Unknown, 05/21/18) Objective Last 24 Hour Vital Signs Date Time Temp Pulse Resp B/P (MAP) Pulse Ox O2 Delivery O2 Flow Rate FiO2 07/24/18 08:00 97.3 92 20 127/70 (89) 96 97.3 07/24/18 04:00 Nasal Cannula 2.0 07/24/18 04:00 97.3 95 20 133/74 (93) 99 97.3 07/24/18 04:00 91 07/24/18 00:00 Nasal Cannula 2.0 07/24/18 00:00 95 07/24/18 00:00 97.7 93 20 135/74 (94) 97 97.7 07/23/18 20:00 94 07/23/18 20:00 Room Air 07/23/18 20:00 98.6 91 20 138/72 (94) 99 98.6 07/23/18 20:00 Nasal Cannula 2.0 07/23/18 16:00 97.5 96 20 133/75 (94) 100 97.5 07/23/18 16:00 Room Air 07/23/18 15:59 97 07/23/18 12:00 Room Air 07/23/18 12:00 97.5 89 20 126/73 (90) 99 97.5 07/23/18 12:00 90 Intake and Output 07/23/18 07/24/18 19:00 07:00 Intake Total 1151.25 ml 1452.5 ml Output Total 1600 ml 1300 ml Balance -448.75 ml 152.5 ml Intake Oral 50 ml 480 ml IV Total 1101.25 ml 972.5 ml Output Urine Total 400 ml 500 ml Stool Total 1200 ml 800 ml # Bowel Movements 3 4 General Appearance: no acute distress HEENT: normocephalic Respiratory/Chest: chest wall non-tender, lungs clear Cardiovascular: normal peripheral pulses, normal rate Abdomen: normal bowel sounds Laboratory Tests 07/23/18 11:00: Ammonia 184H 07/24/18 04:00: White Blood Count 19.4H, Red Blood Count 2.30L, Hemoglobin 7.2L, Hematocrit 22.3L, Mean Corpuscular Volume 97, Mean Corpuscular Hemoglobin 31.4H, Mean Corpuscular Hemoglobin Concent 32.3, Red Cell Distribution Width 20.3H, Platelet Count 53L, Mean Platelet Volume 8.8, Neutrophils (%) (Auto) , Lymphocytes (%) (Auto) , Monocytes (%) (Auto) , Eosinophils (%) (Auto) , Basophils (%) (Auto) , Differential Total Cells Counted 100, Neutrophils % ( Manual) 75, Lymphocytes % (Manual) 13L, Monocytes % (Manual) 11H, Eosinophils % (Manual) 1, Basophils % (Manual) 0, Band Neutrophils 0, Platelet Estimate DecreasedL, Platelet Morphology Normal, Hypochromasia 3+, Anisocytosis 2+, Spherocytes 2+, Sodium Level 159H, Potassium Level 3.4L, Chloride Level 126H, Carbon Dioxide Level 27, Anion Gap 6, Blood Urea Nitrogen 14, Creatinine 0.7, Estimat Glomerular Filtration Rate > 60, Glucose Level 115H, Calcium Level 9.5, Total Bilirubin 14.5H, Direct Bilirubin 10.3H, Aspartate Amino Transf (AST/SGOT ) 236H, Alanine Aminotransferase (ALT/SGPT) 55, Alkaline Phosphatase 130H, Total Protein 6.0L, Albumin 1.6L Current Medications Medications (Trade) Dose Ordered Sig/Abner Route PRN Reason Start Time Stop Time Status Last Admin Dose Admin Cefepime HCl 2 gm/ Dextrose 110 ml @ 220 mls/hr EVERY 12 HOURS IVPB 07/23/18 12:00 07/30/18 11:59 07/24/18 08:45 Chlorhexidine Gluconate (Sierra-Hex 2%) 1 applic DAILY@2000 TOPIC 07/22/18 20:00 08/18/18 19:59 07/23/18 21:58 Dextrose/ Electrolytes 1,000 ml @ 100 mls/hr Q10H IV 07/24/18 08:30 08/23/18 08:29 07/24/18 08:46 Folic Acid (Folate) 1 mg DAILY ORAL 07/23/18 09:00 08/15/18 08:59 07/24/18 08:44 Lactulose (Cephulac) 30 gm FOUR TIMES A DAY ORAL 07/22/18 18:00 08/15/18 17:59 07/24/18 08:44 Nystatin (Nystatin) 5 ml QID ORAL 07/23/18 21:00 07/30/18 20:59 07/24/18 08:44 Ondansetron HCl (Zofran) 4 mg Q4H PRN IVP Nausea & Vomiting 07/22/18 13:30 08/15/18 17:29 Pantoprazole (Protonix) 40 mg EVERY 12 HOURS IVP 07/23/18 21:00 08/22/18 20:59 07/24/18 08:44 Potassium Chloride 100 ml @ 50 mls/hr ONCE ONCE IVPB 07/24/18 09:00 07/24/18 10:59 07/24/18 08:45 Rifaximin (Xifaxan) 550 mg EVERY 12 HOURS ORAL 07/22/18 21:00 08/20/18 20:59 07/24/18 08:44 Temazepam (Restoril) 15 mg Q6H PRN ORAL Agitation 07/22/18 13:30 07/25/18 13:29 Bowen Choudhury MD Jul 24, 2018 09:36
--- NOTE | 2018-07-24 11:29 | GI Progress Note ---
Assessment/Plan Problems: (1) Liver failure ICD Codes: K72.90 - Hepatic failure, unspecified without coma SNOMED: 69843273 Qualifiers: Qualified Codes: K72.01 - Acute and subacute hepatic failure with coma (2) Altered level of consciousness ICD Codes: R40.4 - Transient alteration of awareness SNOMED: 3327879 (3) GI bleed ICD Codes: K92.2 - Gastrointestinal hemorrhage, unspecified SNOMED: 38720737 Qualifiers: Qualified Codes: K92.2 - Gastrointestinal hemorrhage, unspecified (4) Hypokalemia ICD Codes: E87.6 - Hypokalemia SNOMED: 66342669 (5) Hepatic encephalopathy ICD Codes: K72.90 - Hepatic failure, unspecified without coma SNOMED: 73364505 (6) Anemia ICD Codes: D64.9 - Anemia, unspecified SNOMED: 936187523 Qualifiers: Qualified Codes: D64.9 - Anemia, unspecified Status: stable, not improved, unchanged Status Narrative Discussed with Dr. Rodriguez. Assessment/Plan Assessment - EtOH cirrhosis - Esophageal varicies - UGIB - s/p EGD and EBL - Anemia Recommendations - DO NOT reinsert NGT, can cause rebleed. - diet per ST - dc octreotide, dc ppi gtt - ppi BID - OK to floor today from GI standpoint - monitor labs - replace lytes - OOB - needs TIPS The patient was seen and examined at bedside and all new and available data was reviewed in the patients chart. I agree with the above findings, impression and plan. (Patient seen earlier today. Signature stamp does not reflect patient encounter time.). - Christopher Rodriguez MD Subjective Subjective limited Objective Last 24 Hour Vital Signs Date Time Temp Pulse Resp B/P (MAP) Pulse Ox O2 Delivery O2 Flow Rate FiO2 07/24/18 09:00 88 07/24/18 08:00 97.3 92 20 127/70 (89) 96 97.3 07/24/18 08:00 Nasal Cannula 2.0 07/24/18 04:00 Nasal Cannula 2.0 07/24/18 04:00 97.3 95 20 133/74 (93) 99 97.3 07/24/18 04:00 91 07/24/18 00:00 Nasal Cannula 2.0 07/24/18 00:00 95 07/24/18 00:00 97.7 93 20 135/74 (94) 97 97.7 07/23/18 20:00 94 07/23/18 20:00 Room Air 07/23/18 20:00 98.6 91 20 138/72 (94) 99 98.6 07/23/18 20:00 Nasal Cannula 2.0 07/23/18 16:00 97.5 96 20 133/75 (94) 100 97.5 07/23/18 16:00 Room Air 07/23/18 15:59 97 07/23/18 12:00 Room Air 07/23/18 12:00 97.5 89 20 126/73 (90) 99 97.5 07/23/18 12:00 90 Intake and Output 07/23/18 07/24/18 19:00 07:00 Intake Total 1151.25 ml 1452.5 ml Output Total 1600 ml 1300 ml Balance -448.75 ml 152.5 ml Intake Oral 50 ml 480 ml IV Total 1101.25 ml 972.5 ml Output Urine Total 400 ml 500 ml Stool Total 1200 ml 800 ml # Bowel Movements 3 4 Laboratory Tests Test 07/24/18 04:00 White Blood Count 19.4 K/UL (4.8-10.8) H Red Blood Count 2.30 M/UL (4.20-5.40) L Hemoglobin 7.2 G/DL (12.0-16.0) L Hematocrit 22.3 % (37.0-47.0) L Mean Corpuscular Volume 97 FL (80-99) Mean Corpuscular Hemoglobin 31.4 PG (27.0-31.0) H Mean Corpuscular Hemoglobin Concent 32.3 G/DL (32.0-36.0) Red Cell Distribution Width 20.3 % (11.6-14.8) H Platelet Count 53 K/UL (150-450) L Mean Platelet Volume 8.8 FL (6.5-10.1) Neutrophils (%) (Auto) % (45.0-75.0) Lymphocytes (%) (Auto) % (20.0-45.0) Monocytes (%) (Auto) % (1.0-10.0) Eosinophils (%) (Auto) % (0.0-3.0) Basophils (%) (Auto) % (0.0-2.0) Differential Total Cells Counted 100 Neutrophils % (Manual) 75 % (45-75) Lymphocytes % (Manual) 13 % (20-45) L Monocytes % (Manual) 11 % (1-10) H Eosinophils % (Manual) 1 % (0-3) Basophils % (Manual) 0 % (0-2) Band Neutrophils 0 % (0-8) Platelet Estimate Decreased L Platelet Morphology Normal Hypochromasia 3+ Anisocytosis 2+ Spherocytes 2+ Sodium Level 159 MMOL/L (136-145) H Potassium Level 3.4 MMOL/L (3.5-5.1) L Chloride Level 126 MMOL/L (98-107) H Carbon Dioxide Level 27 MMOL/L (21-32) Anion Gap 6 mmol/L (5-15) Blood Urea Nitrogen 14 mg/dL (7-18) Creatinine 0.7 MG/DL (0.55-1.30) Estimat Glomerular Filtration Rate > 60 mL/min (>60) Glucose Level 115 MG/DL (74-106) H Calcium Level 9.5 MG/DL (8.5-10.1) Total Bilirubin 14.5 MG/DL (0.2-1.0) H Direct Bilirubin 10.3 MG/DL (0.0-0.3) H Aspartate Amino Transf (AST/SGOT) 236 U/L (15-37) H Alanine Aminotransferase (ALT/SGPT) 55 U/L (12-78) Alkaline Phosphatase 130 U/L (46-116) H Total Protein 6.0 G/DL (6.4-8.2) L Albumin 1.6 G/DL (3.4-5.0) L Height (Feet): 5 Height (Inches): 9.00 Weight (Pounds): 253 General Appearance: lethargic, confused Cardiovascular: normal rate Respiratory/Chest: normal breath sounds, no respiratory distress Abdominal Exam: normal bowel sounds, non tender, soft, distended, ascites Markus Lebron NP Jul 24, 2018 11:29
[2018-07-24 12:00] VITALS: BP 123/74
[2018-07-24 16:00] VITALS: BP 128/70
--- NOTE | 2018-07-24 19:59 | General Progress Note ---
Assessment/Plan Assessment/Plan hepatic encephalopathy, liver failure hypokalemia alcohol w/d temazepam 15mg q6hr prn for alcohol w/d temazepam doesn't metabolize through liver hold when sedated Subjective Date patient seen: Jul 24, 2018 Neurologic/Psychiatric: Reports: anxiety, depressed Allergies: Coded Allergies: LORAZEPAM (Verified Allergy, Unknown, 05/21/18) PENICILLINS (Verified Allergy, Unknown, 05/21/18) Subjective the pt is calmer less agitated Objective Last 24 Hour Vital Signs Date Time Temp Pulse Resp B/P (MAP) Pulse Ox O2 Delivery O2 Flow Rate FiO2 07/24/18 18:00 87 07/24/18 16:00 Nasal Cannula 2.0 07/24/18 16:00 97.9 85 18 128/70 (89) 100 97.9 07/24/18 12:00 Nasal Cannula 2.0 07/24/18 12:00 97.5 87 18 123/74 (90) 97 97.5 07/24/18 12:00 95 07/24/18 09:00 88 07/24/18 08:00 97.3 92 20 127/70 (89) 96 97.3 07/24/18 08:00 Nasal Cannula 2.0 07/24/18 04:00 Nasal Cannula 2.0 07/24/18 04:00 97.3 95 20 133/74 (93) 99 97.3 07/24/18 04:00 91 07/24/18 00:00 Nasal Cannula 2.0 07/24/18 00:00 95 07/24/18 00:00 97.7 93 20 135/74 (94) 97 97.7 07/23/18 20:00 94 07/23/18 20:00 Room Air 07/23/18 20:00 98.6 91 20 138/72 (94) 99 98.6 07/23/18 20:00 Nasal Cannula 2.0 Intake and Output 07/23/18 07/24/18 19:00 07:00 Intake Total 1151.25 ml 1452.5 ml Output Total 1600 ml 1300 ml Balance -448.75 ml 152.5 ml Intake Oral 50 ml 480 ml IV Total 1101.25 ml 972.5 ml Output Urine Total 400 ml 500 ml Stool Total 1200 ml 800 ml # Bowel Movements 3 4 Laboratory Tests 07/24/18 04:00: White Blood Count 19.4H, Red Blood Count 2.30L, Hemoglobin 7.2L, Hematocrit 22.3L, Mean Corpuscular Volume 97, Mean Corpuscular Hemoglobin 31.4H, Mean Corpuscular Hemoglobin Concent 32.3, Red Cell Distribution Width 20.3H, Platelet Count 53L, Mean Platelet Volume 8.8, Neutrophils (%) (Auto) , Lymphocytes (%) (Auto) , Monocytes (%) (Auto) , Eosinophils (%) (Auto) , Basophils (%) (Auto) , Differential Total Cells Counted 100, Neutrophils % ( Manual) 75, Lymphocytes % (Manual) 13L, Monocytes % (Manual) 11H, Eosinophils % (Manual) 1, Basophils % (Manual) 0, Band Neutrophils 0, Platelet Estimate DecreasedL, Platelet Morphology Normal, Hypochromasia 3+, Anisocytosis 2+, Spherocytes 2+, Sodium Level 159H, Potassium Level 3.4L, Chloride Level 126H, Carbon Dioxide Level 27, Anion Gap 6, Blood Urea Nitrogen 14, Creatinine 0.7, Estimat Glomerular Filtration Rate > 60, Glucose Level 115H, Calcium Level 9.5, Total Bilirubin 14.5H, Direct Bilirubin 10.3H, Aspartate Amino Transf (AST/SGOT ) 236H, Alanine Aminotransferase (ALT/SGPT) 55, Alkaline Phosphatase 130H, Total Protein 6.0L, Albumin 1.6L Height (Feet): 5 Height (Inches): 9.00 Weight (Pounds): 253 Nyasia Maloney MD Jul 24, 2018 19:59
[2018-07-24 20:00] VITALS: BP 127/71
[2018-07-24] MEDS: Dyna-Hex 2% Top Sol 2oz TOPIC SCH (21:10)
[2018-07-25] VITALS: BP 124/67
[2018-07-25 04:00] VITALS: BP 126/70
[2018-07-25] MEDS: D5W w/KCl 20mEq 1,000 ML IV SCH ×3 (04:33→22:45)
[2018-07-25 06:47] LABS: HEMATOCRIT 20.7 % (37.0-47.0); MEAN CORPUSCULAR VOLUME 97 FL (80-99); PLATELET COUNT 49 K/UL (150-450); RED BLOOD COUNT 2.14 M/UL (4.20-5.40); RED CELL DISTRIBUTION WIDTH 18.9 % (11.6-14.8); WHITE BLOOD COUNT 17.4 K/UL (4.8-10.8)
[2018-07-25 06:55] LABS: HEMOGLOBIN 6.8 G/DL (12.0-16.0)
[2018-07-25 07:21] LABS: ALANINE AMINOTRANSFERASE 69 U/L (12-78); ALBUMIN 1.5 G/DL (3.4-5.0); ALBUMIN/GLOBULIN RATIO 0.3 (1.0-2.7); ALKALINE PHOSPHATASE 131 U/L (46-116); ANION GAP 5 mmol/L (5-15); ASPARTATE AMINO TRANSFERASE 255 U/L (15-37); BLOOD UREA NITROGEN 12 mg/dL (7-18); CALCIUM 9.1 MG/DL (8.5-10.1); CARBON DIOXIDE 29 MMOL/L (21-32); CHLORIDE 126 MMOL/L (98-107); CREATININE 0.6 MG/DL (0.55-1.30); POTASSIUM 3.4 MMOL/L (3.5-5.1); SODIUM 159 MMOL/L (136-145)
[2018-07-25 08:00] VITALS: BP 132/67
--- NOTE | 2018-07-25 08:40 | Nephrology Progress Note ---
Assessment/Plan Assessment/Plan A/P 1) Hypok+/Mg/Phos- replace today 2) Tranaminitis/liver failure- per GI mgmt 3) Alcohol Abuse- thiamine and folate 4) GI Bleed- Mgmt per GI. Anemia-, Bld Tx PRN, 5) Hypernatremia- increased IVFs D5W to 100 ml/hr Subjective Date patient seen: Jul 25, 2018 Time patient seen: 08:26 ROS Limited/Unobtainable: No Constitutional: Reports: weakness Gastrointestinal/Abdominal: Reports: poor appetite, poor fluid intake Allergies: Coded Allergies: LORAZEPAM (Verified Allergy, Unknown, 05/21/18) PENICILLINS (Verified Allergy, Unknown, 05/21/18) All Systems: reviewed and negative except above Subjective Patient ill appearing, Mildly confused Objective Last 24 Hour Vital Signs Date Time Temp Pulse Resp B/P (MAP) Pulse Ox O2 Delivery O2 Flow Rate FiO2 07/25/18 08:00 Nasal Cannula 2.0 07/25/18 08:00 96.6 88 18 132/67 (88) 99 96.6 07/25/18 04:00 Nasal Cannula 2.0 07/25/18 04:00 97.8 89 20 126/70 (88) 98 97.8 07/25/18 04:00 83 07/25/18 00:00 85 07/25/18 00:00 97.5 87 19 124/67 (86) 100 97.5 07/25/18 00:00 Nasal Cannula 2.0 07/24/18 20:00 97.3 87 20 127/71 (89) 100 97.3 07/24/18 20:00 86 07/24/18 20:00 Nasal Cannula 2.0 07/24/18 18:00 87 07/24/18 16:00 Nasal Cannula 2.0 07/24/18 16:00 97.9 85 18 128/70 (89) 100 97.9 07/24/18 12:00 Nasal Cannula 2.0 07/24/18 12:00 97.5 87 18 123/74 (90) 97 97.5 07/24/18 12:00 95 07/24/18 09:00 88 Intake and Output 07/24/18 07/25/18 19:00 07:00 Intake Total 1450 ml 410 ml Output Total 1000 ml 300 ml Balance 450 ml 110 ml Intake Oral 240 ml 100 ml IV Total 1210 ml 310 ml Output Urine Total 800 ml 300 ml Stool Total 200 ml # Bowel Movements 3 1 Laboratory Tests 07/25/18 04:15: White Blood Count 17.4H, Red Blood Count 2.14L, Hemoglobin 6.8*L, Hematocrit 20.7L, Mean Corpuscular Volume 97, Mean Corpuscular Hemoglobin 31.9H, Mean Corpuscular Hemoglobin Concent 32.9, Red Cell Distribution Width 18.9H, Platelet Count 49L, Mean Platelet Volume 9.5, Neutrophils (%) (Auto) , Lymphocytes (%) (Auto) , Monocytes (%) (Auto) , Eosinophils (%) (Auto) , Basophils (%) (Auto) , Neutrophils % (Manual) [Pending], Lymphocytes % (Manual) [Pending], Platelet Estimate [Pending], Platelet Morphology [Pending], Sodium Level 159H, Potassium Level 3.4L, Chloride Level 126H, Carbon Dioxide Level 29, Anion Gap 5, Blood Urea Nitrogen 12, Creatinine 0.6, Estimat Glomerular Filtration Rate > 60, Glucose Level 105, Calcium Level 9.1, Total Bilirubin 13.0H, Direct Bilirubin 9.0H, Aspartate Amino Transf (AST/SGOT) 255H, Alanine Aminotransferase (ALT/SGPT) 69, Alkaline Phosphatase 131H, Total Protein 6.0L, Albumin 1.5L, Globulin 4.5, Albumin/Globulin Ratio 0.3L Height (Feet): 5 Height (Inches): 9.00 Weight (Pounds): 251 General Appearance: WD/WN, no apparent distress EENT: PERRL/EOMI Neck: non-tender Cardiovascular: normal rate, regular rhythm Respiratory/Chest: lungs clear, normal breath sounds Abdomen: non tender, soft Edema: no edema noted Arm (L), no edema noted Arm (R), no edema noted Leg (L), no edema noted Leg (R), no edema noted Pedal (L), no edema noted Pedal (R), no edema noted Generalized Amos Pinon MD Jul 25, 2018 08:40
[2018-07-25] MEDS: Cefepime HCl 2 GM in D5W 110 ML IVPB SCH ×2 (08:49→21:24)
[2018-07-25] MEDS: Pantoprazole Inj IVP SCH ×2 (08:49→21:24)
[2018-07-25] MEDS: Nystatin Susp 500,000 units/5ml ORAL SCH ×4 (08:49→21:24)
[2018-07-25] MEDS: Lactulose 20gm/30ml UDC ORAL SCH ×4 (08:50→21:23)
--- NOTE | 2018-07-25 10:14 | Pulmonology Progress Note ---
Assessment/Plan Assessment/Plan 1. Malnutrition. 2. Hepatic failure. 3. Suspicion of alcohol abuse. 4. Severe hypokalemia. 5. Hyperglycemia. 6. Leukocytosis. 7. Anemia. 8. GI bleed 9. Possible pneumonia DISCUSSION: 1. Anemia. S/p GI bleed; S/p EGD and banding. I will monitor hemoglobin and follow recs by GI.transfuse per GI. For prbc today. 2. Hypokalemia, severe. Now corrected. 3. Suspicion of alcohol abuse. There is no clear history of alcohol; however, the AST/ALT ratio is suggestive of it. Mother was reporting she was consuming alcohol. I will investigate this further. Start thiamine and folic acid. 4. Hepatic failure. This is apparently a chronic problem. Seen by Gastroenterology to assist in this matter. I will also continue lactulose. Seen by ID given high WBC Probably has pneumonia CXR reviewed I will follow carefully. Subjective Interval Events: tolerating PO's; on pureed diet Constitutional: Reports: no symptoms HEENT: Repors: no symptoms Respiratory: Reports: no symptoms Cardiovascular: Reports: no symptoms Gastrointestinal/Abdominal: Reports: no symptoms Allergies: Coded Allergies: LORAZEPAM (Verified Allergy, Unknown, 05/21/18) PENICILLINS (Verified Allergy, Unknown, 05/21/18) Objective Last 24 Hour Vital Signs Date Time Temp Pulse Resp B/P (MAP) Pulse Ox O2 Delivery O2 Flow Rate FiO2 07/25/18 09:35 85 07/25/18 08:00 Nasal Cannula 2.0 07/25/18 08:00 96.6 88 18 132/67 (88) 99 96.6 07/25/18 04:00 Nasal Cannula 2.0 07/25/18 04:00 97.8 89 20 126/70 (88) 98 97.8 07/25/18 04:00 83 07/25/18 00:00 85 07/25/18 00:00 97.5 87 19 124/67 (86) 100 97.5 07/25/18 00:00 Nasal Cannula 2.0 07/24/18 20:00 97.3 87 20 127/71 (89) 100 97.3 07/24/18 20:00 86 07/24/18 20:00 Nasal Cannula 2.0 07/24/18 18:00 87 9/12/18 16:00 Nasal Cannula 2.0 07/24/18 16:00 97.9 85 18 128/70 (89) 100 97.9 07/24/18 12:00 Nasal Cannula 2.0 07/24/18 12:00 97.5 87 18 123/74 (90) 97 97.5 07/24/18 12:00 95 Intake and Output 07/24/18 07/25/18 19:00 07:00 Intake Total 1450 ml 410 ml Output Total 1000 ml 300 ml Balance 450 ml 110 ml Intake Oral 240 ml 100 ml IV Total 1210 ml 310 ml Output Urine Total 800 ml 300 ml Stool Total 200 ml # Bowel Movements 3 1 General Appearance: no acute distress HEENT: normocephalic Respiratory/Chest: chest wall non-tender, lungs clear Cardiovascular: normal peripheral pulses, normal rate Laboratory Tests 07/25/18 04:15: White Blood Count 17.4H, Red Blood Count 2.14L, Hemoglobin 6.8*L, Hematocrit 20.7L, Mean Corpuscular Volume 97, Mean Corpuscular Hemoglobin 31.9H, Mean Corpuscular Hemoglobin Concent 32.9, Red Cell Distribution Width 18.9H, Platelet Count 49L, Mean Platelet Volume 9.5, Neutrophils (%) (Auto) , Lymphocytes (%) (Auto) , Monocytes (%) (Auto) , Eosinophils (%) (Auto) , Basophils (%) (Auto) , Differential Total Cells Counted 100, Neutrophils % ( Manual) 75, Lymphocytes % (Manual) 14L, Monocytes % (Manual) 11H, Eosinophils % (Manual) 0, Basophils % (Manual) 0, Band Neutrophils 0, Platelet Estimate DecreasedL, Platelet Morphology Normal, Hypochromasia 2+, Anisocytosis 1+, Macrocytosis 1+, Spherocytes 1+, Sodium Level 159H, Potassium Level 3.4L, Chloride Level 126H, Carbon Dioxide Level 29, Anion Gap 5, Blood Urea Nitrogen 12, Creatinine 0.6, Estimat Glomerular Filtration Rate > 60, Glucose Level 105, Calcium Level 9.1, Total Bilirubin 13.0H, Direct Bilirubin 9.0H, Aspartate Amino Transf (AST/SGOT) 255H, Alanine Aminotransferase (ALT/SGPT) 69, Alkaline Phosphatase 131H, Total Protein 6.0L, Albumin 1.5L, Globulin 4.5, Albumin/ Globulin Ratio 0.3L Current Medications Medications (Trade) Dose Ordered Sig/Abner Route PRN Reason Start Time Stop Time Status Last Admin Dose Admin Cefepime HCl 2 gm/ Dextrose 110 ml @ 220 mls/hr EVERY 12 HOURS IVPB 07/23/18 12:00 07/30/18 11:59 07/25/18 08:49 Chlorhexidine Gluconate (Sierra-Hex 2%) 1 applic DAILY@2000 TOPIC 07/22/18 20:00 08/18/18 19:59 07/24/18 21:10 Dextrose/ Electrolytes 1,000 ml @ 100 mls/hr Q10H IV 07/24/18 08:30 08/23/18 08:29 07/25/18 04:33 Folic Acid (Folate) 1 mg DAILY ORAL 07/23/18 09:00 08/15/18 08:59 07/25/18 08:49 Lactulose (Cephulac) 30 gm FOUR TIMES A DAY ORAL 07/22/18 18:00 08/15/18 17:59 07/25/18 08:50 Nystatin (Nystatin) 5 ml QID ORAL 07/23/18 21:00 07/30/18 20:59 07/25/18 08:49 Ondansetron HCl (Zofran) 4 mg Q4H PRN IVP Nausea & Vomiting 07/22/18 13:30 08/15/18 17:29 Pantoprazole (Protonix) 40 mg EVERY 12 HOURS IVP 07/23/18 21:00 08/22/18 20:59 07/25/18 08:49 Potassium Chloride 100 ml @ 50 mls/hr ONCE IVPB 07/25/18 08:30 07/25/18 11:00 07/25/18 09:33 Rifaximin (Xifaxan) 550 mg EVERY 12 HOURS ORAL 07/22/18 21:00 08/20/18 20:59 07/25/18 08:49 Temazepam (Restoril) 15 mg Q6H PRN ORAL Agitation 07/22/18 13:30 07/25/18 13:29 Bowen Choudhury MD Jul 25, 2018 10:14
--- NOTE | 2018-07-25 11:28 | GI Progress Note ---
Assessment/Plan Problems: (1) Liver failure ICD Codes: K72.90 - Hepatic failure, unspecified without coma SNOMED: 97789587 Qualifiers: Qualified Codes: K72.01 - Acute and subacute hepatic failure with coma (2) Altered level of consciousness ICD Codes: R40.4 - Transient alteration of awareness SNOMED: 7156425 (3) GI bleed ICD Codes: K92.2 - Gastrointestinal hemorrhage, unspecified SNOMED: 48301628 Qualifiers: Qualified Codes: K92.2 - Gastrointestinal hemorrhage, unspecified (4) Hypokalemia ICD Codes: E87.6 - Hypokalemia SNOMED: 21290234 (5) Hepatic encephalopathy ICD Codes: K72.90 - Hepatic failure, unspecified without coma SNOMED: 70979358 (6) Anemia ICD Codes: D64.9 - Anemia, unspecified SNOMED: 824789159 Qualifiers: Qualified Codes: D64.9 - Anemia, unspecified Status: unchanged Status Narrative Discussed with Dr. Rodriguez. Assessment/Plan Assessment - EtOH cirrhosis - Esophageal varicies - UGIB - s/p EGD and EBL - Anemia - more alert today Recommendations - DO NOT reinsert NGT, can cause rebleed. - diet per ST - ppi BID - OK to floor today from GI standpoint - monitor labs - replace lytes - OOB - needs TIPS The patient was seen and examined at bedside and all new and available data was reviewed in the patients chart. I agree with the above findings, impression and plan. (Patient seen earlier today. Signature stamp does not reflect patient encounter time.). - Christopher Rodriguez MD Subjective Subjective limited Objective Last 24 Hour Vital Signs Date Time Temp Pulse Resp B/P (MAP) Pulse Ox O2 Delivery O2 Flow Rate FiO2 07/25/18 09:35 85 07/25/18 08:00 Nasal Cannula 2.0 07/25/18 08:00 96.6 88 18 132/67 (88) 99 96.6 07/25/18 04:00 Nasal Cannula 2.0 07/25/18 04:00 97.8 89 20 126/70 (88) 98 97.8 07/25/18 04:00 83 07/25/18 00:00 85 07/25/18 00:00 97.5 87 19 124/67 (86) 100 97.5 07/25/18 00:00 Nasal Cannula 2.0 07/24/18 20:00 97.3 87 20 127/71 (89) 100 97.3 07/24/18 20:00 86 07/24/18 20:00 Nasal Cannula 2.0 07/24/18 18:00 87 07/24/18 16:00 Nasal Cannula 2.0 07/24/18 16:00 97.9 85 18 128/70 (89) 100 97.9 07/24/18 12:00 Nasal Cannula 2.0 07/24/18 12:00 97.5 87 18 123/74 (90) 97 97.5 07/24/18 12:00 95 Intake and Output 07/24/18 07/25/18 19:00 07:00 Intake Total 1450 ml 410 ml Output Total 1000 ml 300 ml Balance 450 ml 110 ml Intake Oral 240 ml 100 ml IV Total 1210 ml 310 ml Output Urine Total 800 ml 300 ml Stool Total 200 ml # Bowel Movements 3 1 Laboratory Tests Test 07/25/18 04:15 White Blood Count 17.4 K/UL (4.8-10.8) H Red Blood Count 2.14 M/UL (4.20-5.40) L Hemoglobin 6.8 G/DL (12.0-16.0) *L Hematocrit 20.7 % (37.0-47.0) L Mean Corpuscular Volume 97 FL (80-99) Mean Corpuscular Hemoglobin 31.9 PG (27.0-31.0) H Mean Corpuscular Hemoglobin Concent 32.9 G/DL (32.0-36.0) Red Cell Distribution Width 18.9 % (11.6-14.8) H Platelet Count 49 K/UL (150-450) L Mean Platelet Volume 9.5 FL (6.5-10.1) Neutrophils (%) (Auto) % (45.0-75.0) Lymphocytes (%) (Auto) % (20.0-45.0) Monocytes (%) (Auto) % (1.0-10.0) Eosinophils (%) (Auto) % (0.0-3.0) Basophils (%) (Auto) % (0.0-2.0) Differential Total Cells Counted 100 Neutrophils % (Manual) 75 % (45-75) Lymphocytes % (Manual) 14 % (20-45) L Monocytes % (Manual) 11 % (1-10) H Eosinophils % (Manual) 0 % (0-3) Basophils % (Manual) 0 % (0-2) Band Neutrophils 0 % (0-8) Platelet Estimate Decreased L Platelet Morphology Normal Hypochromasia 2+ Anisocytosis 1+ Macrocytosis 1+ Spherocytes 1+ Sodium Level 159 MMOL/L (136-145) H Potassium Level 3.4 MMOL/L (3.5-5.1) L Chloride Level 126 MMOL/L (98-107) H Carbon Dioxide Level 29 MMOL/L (21-32) Anion Gap 5 mmol/L (5-15) Blood Urea Nitrogen 12 mg/dL (7-18) Creatinine 0.6 MG/DL (0.55-1.30) Estimat Glomerular Filtration Rate > 60 mL/min (>60) Glucose Level 105 MG/DL (74-106) Calcium Level 9.1 MG/DL (8.5-10.1) Total Bilirubin 13.0 MG/DL (0.2-1.0) H Direct Bilirubin 9.0 MG/DL (0.0-0.3) H Aspartate Amino Transf (AST/SGOT) 255 U/L (15-37) H Alanine Aminotransferase (ALT/SGPT) 69 U/L (12-78) Alkaline Phosphatase 131 U/L (46-116) H Total Protein 6.0 G/DL (6.4-8.2) L Albumin 1.5 G/DL (3.4-5.0) L Globulin 4.5 g/dL Albumin/Globulin Ratio 0.3 (1.0-2.7) L Height (Feet): 5 Height (Inches): 9.00 Weight (Pounds): 251 General Appearance: WD/WN, no apparent distress, alert, overweight, other - more awake today Cardiovascular: normal rate Respiratory/Chest: normal breath sounds, no respiratory distress Abdominal Exam: normal bowel sounds, non tender, soft Extremities: non-tender Markus Lebron NP Jul 25, 2018 11:28
[2018-07-25 12:00] VITALS: BP 135/79
--- NOTE | 2018-07-25 12:35 | Infectious Diseases Prog Note ---
Assessment/Plan Assessment/Plan A 1. pneumonia 2. leucocytosis 3. cirrhosis 4. hepatic encephalopathy 5. anemia 6. thrombocytopenia P Continue cefepime Subjective ROS Limited/Unobtainable: No Respiratory: Reports: productive cough Gastrointestinal/Abdominal: Reports: diarrhea Genitourinary: Reports: no symptoms Musculoskeletal: Reports: pain Allergies: Coded Allergies: LORAZEPAM (Verified Allergy, Unknown, 05/21/18) PENICILLINS (Verified Allergy, Unknown, 05/21/18) Objective Vital Signs Last 24 Hour Vital Signs Date Time Temp Pulse Resp B/P (MAP) Pulse Ox O2 Delivery O2 Flow Rate FiO2 07/25/18 09:35 85 07/25/18 08:00 Nasal Cannula 2.0 07/25/18 08:00 96.6 88 18 132/67 (88) 99 96.6 07/25/18 04:00 Nasal Cannula 2.0 07/25/18 04:00 97.8 89 20 126/70 (88) 98 97.8 07/25/18 04:00 83 07/25/18 00:00 85 07/25/18 00:00 97.5 87 19 124/67 (86) 100 97.5 07/25/18 00:00 Nasal Cannula 2.0 07/24/18 20:00 97.3 87 20 127/71 (89) 100 97.3 07/24/18 20:00 86 07/24/18 20:00 Nasal Cannula 2.0 07/24/18 18:00 87 07/24/18 16:00 Nasal Cannula 2.0 07/24/18 16:00 97.9 85 18 128/70 (89) 100 97.9 Height (Feet): 5 Height (Inches): 9.00 Weight (Pounds): 251 General Appearance: no acute distress HEENT: other - yellowish-green scelera Respiratory/Chest: lungs clear Cardiovascular: normal rate Abdomen: soft, non tender Extremities: other - edema Neurologic/Psychiatric: alert, responsive Laboratory Tests Test 07/25/18 04:15 White Blood Count 17.4 K/UL (4.8-10.8) H Red Blood Count 2.14 M/UL (4.20-5.40) L Hemoglobin 6.8 G/DL (12.0-16.0) *L Hematocrit 20.7 % (37.0-47.0) L Mean Corpuscular Volume 97 FL (80-99) Mean Corpuscular Hemoglobin 31.9 PG (27.0-31.0) H Mean Corpuscular Hemoglobin Concent 32.9 G/DL (32.0-36.0) Red Cell Distribution Width 18.9 % (11.6-14.8) H Platelet Count 49 K/UL (150-450) L Mean Platelet Volume 9.5 FL (6.5-10.1) Neutrophils (%) (Auto) % (45.0-75.0) Lymphocytes (%) (Auto) % (20.0-45.0) Monocytes (%) (Auto) % (1.0-10.0) Eosinophils (%) (Auto) % (0.0-3.0) Basophils (%) (Auto) % (0.0-2.0) Differential Total Cells Counted 100 Neutrophils % (Manual) 75 % (45-75) Lymphocytes % (Manual) 14 % (20-45) L Monocytes % (Manual) 11 % (1-10) H Eosinophils % (Manual) 0 % (0-3) Basophils % (Manual) 0 % (0-2) Band Neutrophils 0 % (0-8) Platelet Estimate Decreased L Platelet Morphology Normal Hypochromasia 2+ Anisocytosis 1+ Macrocytosis 1+ Spherocytes 1+ Sodium Level 159 MMOL/L (136-145) H Potassium Level 3.4 MMOL/L (3.5-5.1) L Chloride Level 126 MMOL/L (98-107) H Carbon Dioxide Level 29 MMOL/L (21-32) Anion Gap 5 mmol/L (5-15) Blood Urea Nitrogen 12 mg/dL (7-18) Creatinine 0.6 MG/DL (0.55-1.30) Estimat Glomerular Filtration Rate > 60 mL/min (>60) Glucose Level 105 MG/DL (74-106) Calcium Level 9.1 MG/DL (8.5-10.1) Total Bilirubin 13.0 MG/DL (0.2-1.0) H Direct Bilirubin 9.0 MG/DL (0.0-0.3) H Aspartate Amino Transf (AST/SGOT) 255 U/L (15-37) H Alanine Aminotransferase (ALT/SGPT) 69 U/L (12-78) Alkaline Phosphatase 131 U/L (46-116) H Total Protein 6.0 G/DL (6.4-8.2) L Albumin 1.5 G/DL (3.4-5.0) L Globulin 4.5 g/dL Albumin/Globulin Ratio 0.3 (1.0-2.7) L Current Medications Medications (Trade) Dose Ordered Sig/Abner Route PRN Reason Start Time Stop Time Status Last Admin Dose Admin Cefepime HCl 2 gm/ Dextrose 110 ml @ 220 mls/hr EVERY 12 HOURS IVPB 07/23/18 12:00 07/30/18 11:59 07/25/18 08:49 Chlorhexidine Gluconate (Sierra-Hex 2%) 1 applic DAILY@2000 TOPIC 07/22/18 20:00 08/18/18 19:59 07/24/18 21:10 Dextrose/ Electrolytes 1,000 ml @ 100 mls/hr Q10H IV 07/24/18 08:30 08/23/18 08:29 07/25/18 04:33 Folic Acid (Folate) 1 mg DAILY ORAL 07/23/18 09:00 08/15/18 08:59 07/25/18 08:49 Lactulose (Cephulac) 30 gm FOUR TIMES A DAY ORAL 07/22/18 18:00 08/15/18 17:59 07/25/18 08:50 Nystatin (Nystatin) 5 ml QID ORAL 07/23/18 21:00 07/30/18 20:59 07/25/18 08:49 Ondansetron HCl (Zofran) 4 mg Q4H PRN IVP Nausea & Vomiting 07/22/18 13:30 08/15/18 17:29 Pantoprazole (Protonix) 40 mg EVERY 12 HOURS IVP 07/23/18 21:00 08/22/18 20:59 07/25/18 08:49 Rifaximin (Xifaxan) 550 mg EVERY 12 HOURS ORAL 07/22/18 21:00 08/20/18 20:59 07/25/18 08:49 Temazepam (Restoril) 15 mg Q6H PRN ORAL Agitation 07/22/18 13:30 07/25/18 13:29 Damian Ly MD Jul 25, 2018 12:35
[2018-07-25] MEDS ORDERED: Heparin 2000 units/Ns 1000ml INJ PRN (12:45)
[2018-07-25] MEDS ORDERED: Lidocaine 1% Plain 30 ml INJ PRN (12:45)
[2018-07-25 16:00] VITALS: BP 134/76
[2018-07-25 20:00] VITALS: BP 148/80
[2018-07-25] MEDS: Dyna-Hex 2% Top Sol 2oz TOPIC SCH (21:23)
[2018-07-26] VITALS: BP 130/71
[2018-07-26 04:00] VITALS: BP 119/67
[2018-07-26 05:53] LABS: HEMATOCRIT 22.1 % (37.0-47.0); HEMOGLOBIN 7.3 G/DL (12.0-16.0); MEAN CORPUSCULAR VOLUME 95 FL (80-99); PLATELET COUNT 51 K/UL (150-450); RED BLOOD COUNT 2.32 M/UL (4.20-5.40); RED CELL DISTRIBUTION WIDTH 18.5 % (11.6-14.8); WHITE BLOOD COUNT 20.2 K/UL (4.8-10.8)
[2018-07-26 06:06] LABS: ALANINE AMINOTRANSFERASE 75 U/L (12-78); ALBUMIN 1.5 G/DL (3.4-5.0); ALBUMIN/GLOBULIN RATIO 0.3 (1.0-2.7); ALKALINE PHOSPHATASE 135 U/L (46-116); ANION GAP 7 mmol/L (5-15); ASPARTATE AMINO TRANSFERASE 260 U/L (15-37); BILIRUBIN,TOTAL 12.7 MG/DL (0.2-1.0); CALCIUM 9.3 MG/DL (8.5-10.1); CARBON DIOXIDE 25 MMOL/L (21-32); CHLORIDE 125 MMOL/L (98-107); CREATININE 0.6 MG/DL (0.55-1.30); POTASSIUM 3.5 MMOL/L (3.5-5.1); SODIUM 157 MMOL/L (136-145)
[2018-07-26 06:10] LABS: BILIRUBIN,DIRECT 8.7 MG/DL (0.0-0.3)
[2018-07-26 06:37] LABS: BLOOD UREA NITROGEN 11 mg/dL (7-18)
--- NOTE | 2018-07-26 08:26 | Pulmonology Progress Note ---
Assessment/Plan Assessment/Plan 1. Malnutrition. 2. Hepatic failure. 3. Suspicion of alcohol abuse. 4. Severe hypokalemia. 5. Hyperglycemia. 6. Leukocytosis. 7. Anemia. 8. GI bleed 9. Pneumonia DISCUSSION: 1. Anemia. S/p GI bleed; S/p EGD and banding. I will monitor hemoglobin and follow recs by GI.transfuse per GI. 2. Hypokalemia, severe. Now corrected. 3. Suspicion of alcohol abuse. There is no clear history of alcohol; however, the AST/ALT ratio is suggestive of it. Mother was reporting she was consuming alcohol. Continue thiamine and folic acid. 4. Hepatic failure. This is apparently a chronic problem. Seen by Gastroenterology to assist in this matter. I will also continue lactulose. Seen by ID given high WBC Probably has pneumonia CXR reviewed I will follow carefully. Subjective Interval Events: More awake and responsive Constitutional: Reports: no symptoms HEENT: Repors: no symptoms Respiratory: Reports: no symptoms Cardiovascular: Reports: no symptoms Gastrointestinal/Abdominal: Reports: nausea Genitourinary: Reports: no symptoms Allergies: Coded Allergies: LORAZEPAM (Verified Allergy, Unknown, 05/21/18) PENICILLINS (Verified Allergy, Unknown, 05/21/18) Objective Last 24 Hour Vital Signs Date Time Temp Pulse Resp B/P (MAP) Pulse Ox O2 Delivery O2 Flow Rate FiO2 07/26/18 04:00 91 07/26/18 04:00 98.0 88 20 119/67 (84) 100 98.0 07/26/18 04:00 Nasal Cannula 2.0 07/26/18 00:00 97.0 95 20 130/71 (90) 100 97.0 07/26/18 00:00 Nasal Cannula 2.0 07/26/18 00:00 94 07/25/18 20:00 87 07/25/18 20:00 97.7 90 19 148/80 (102) 100 97.7 07/25/18 20:00 Nasal Cannula 2.0 07/25/18 16:00 Nasal Cannula 2.0 07/25/18 16:00 90 07/25/18 16:00 97.9 90 20 134/76 (95) 99 97.9 07/25/18 12:30 88 07/25/18 12:00 98.1 88 20 135/79 (97) 99 98.1 9/13/18 12:00 Nasal Cannula 2.0 07/25/18 09:35 85 Intake and Output 07/25/18 07/26/18 19:00 07:00 Intake Total 1430 ml 200 ml Output Total 900 ml 1300 ml Balance 530 ml -1100 ml Intake Oral 670 ml 200 ml IV Total 760 ml Output Urine Total 500 ml 1000 ml Stool Total 400 ml 300 ml General Appearance: no acute distress HEENT: normocephalic Respiratory/Chest: chest wall non-tender, lungs clear Cardiovascular: normal peripheral pulses Abdomen: normal bowel sounds Laboratory Tests 07/26/18 04:00: White Blood Count 20.2H, Red Blood Count 2.32L, Hemoglobin 7.3L, Hematocrit 22.1L, Mean Corpuscular Volume 95, Mean Corpuscular Hemoglobin 31.6H, Mean Corpuscular Hemoglobin Concent 33.2, Red Cell Distribution Width 18.5H, Platelet Count 51L, Mean Platelet Volume 9.4, Neutrophils (%) (Auto) , Lymphocytes (%) (Auto) , Monocytes (%) (Auto) , Eosinophils (%) (Auto) , Basophils (%) (Auto) , Neutrophils % (Manual) [Pending], Lymphocytes % (Manual) [Pending], Platelet Estimate [Pending], Platelet Morphology [Pending], Sodium Level 157H, Potassium Level 3.5, Chloride Level 125H, Carbon Dioxide Level 25, Anion Gap 7, Blood Urea Nitrogen 11, Creatinine 0.6, Estimat Glomerular Filtration Rate > 60, Glucose Level 103, Calcium Level 9.3, Total Bilirubin 12.7H, Direct Bilirubin 8.7H, Aspartate Amino Transf (AST/SGOT) 260H, Alanine Aminotransferase (ALT/SGPT) 75, Alkaline Phosphatase 135H, Total Protein 5.9L, Albumin 1.5L, Globulin 4.4, Albumin/Globulin Ratio 0.3L Current Medications Medications (Trade) Dose Ordered Sig/Abner Route PRN Reason Start Time Stop Time Status Last Admin Dose Admin Cefepime HCl 2 gm/ Dextrose 110 ml @ 220 mls/hr EVERY 12 HOURS IVPB 07/23/18 12:00 07/30/18 11:59 07/25/18 21:24 Chlorhexidine Gluconate (Sierra-Hex 2%) 1 applic DAILY@1999 TOPIC 07/25/18 20:00 08/24/18 19:59 07/25/18 21:23 Dextrose/ Electrolytes 1,000 ml @ 100 mls/hr Q10H IV 07/24/18 08:30 08/23/18 08:29 07/25/18 22:45 Folic Acid (Folate) 1 mg DAILY ORAL 07/23/18 09:00 08/15/18 08:59 07/25/18 08:49 Heparin Sodium/ Sodium Chloride (Heparin 2000 units/Ns 1000ml premix) 2,000 unit ONCE PRN INJ picc line placement 07/25/18 12:45 07/27/18 12:44 Lactulose (Cephulac) 30 gm FOUR TIMES A DAY ORAL 07/22/18 18:00 08/15/18 17:59 07/25/18 21:23 Lidocaine HCl (Xylocaine 1% 30ml) 30 ml ONCE PRN INJ picc line placement 07/25/18 12:45 07/27/18 12:44 Nystatin (Nystatin) 5 ml QID ORAL 07/23/18 21:00 07/30/18 20:59 07/25/18 21:24 Ondansetron HCl (Zofran) 4 mg Q4H PRN IVP Nausea & Vomiting 07/22/18 13:30 08/15/18 17:29 Pantoprazole (Protonix) 40 mg EVERY 12 HOURS IVP 07/23/18 21:00 08/22/18 20:59 07/25/18 21:24 Rifaximin (Xifaxan) 550 mg EVERY 12 HOURS ORAL 07/22/18 21:00 08/20/18 20:59 07/25/18 21:24 Bowen Choudhury MD Jul 26, 2018 08:26
--- NOTE | 2018-07-26 08:44 | Nephrology Progress Note ---
Assessment/Plan Assessment/Plan A/P 1) Hypok+/Mg/Phos- corrected - will supplement K+ today 2) Tranaminitis/liver failure- per GI mgmt - due to alcohol 3) Alcohol Abuse/Dependancy- thiamine and folate 4) GI Bleed- Mgmt per GI. Anemia-, Bld Tx PRN, 5) Hypernatremia- IVFs D5W to 100 ml/hr - Na improved to 157 Subjective Date patient seen: Jul 26, 2018 Time patient seen: 08:43 ROS Limited/Unobtainable: Yes Constitutional: Reports: weakness Gastrointestinal/Abdominal: Reports: abdomen distended Allergies: Coded Allergies: LORAZEPAM (Verified Allergy, Unknown, 05/21/18) PENICILLINS (Verified Allergy, Unknown, 05/21/18) Subjective Patient ill appearing Objective Last 24 Hour Vital Signs Date Time Temp Pulse Resp B/P (MAP) Pulse Ox O2 Delivery O2 Flow Rate FiO2 07/26/18 04:00 91 07/26/18 04:00 98.0 88 20 119/67 (84) 100 98.0 07/26/18 04:00 Nasal Cannula 2.0 07/26/18 00:00 97.0 95 20 130/71 (90) 100 97.0 07/26/18 00:00 Nasal Cannula 2.0 07/26/18 00:00 94 07/25/18 20:00 87 07/25/18 20:00 97.7 90 19 148/80 (102) 100 97.7 07/25/18 20:00 Nasal Cannula 2.0 07/25/18 16:00 Nasal Cannula 2.0 07/25/18 16:00 90 07/25/18 16:00 97.9 90 20 134/76 (95) 99 97.9 07/25/18 12:30 88 07/25/18 12:00 98.1 88 20 135/79 (97) 99 98.1 07/25/18 12:00 Nasal Cannula 2.0 07/25/18 09:35 85 Intake and Output 07/25/18 07/26/18 19:00 07:00 Intake Total 1430 ml 200 ml Output Total 900 ml 1300 ml Balance 530 ml -1100 ml Intake Oral 670 ml 200 ml IV Total 760 ml Output Urine Total 500 ml 1000 ml Stool Total 400 ml 300 ml Laboratory Tests 07/26/18 04:00: White Blood Count 20.2H, Red Blood Count 2.32L, Hemoglobin 7.3L, Hematocrit 22.1L, Mean Corpuscular Volume 95, Mean Corpuscular Hemoglobin 31.6H, Mean Corpuscular Hemoglobin Concent 33.2, Red Cell Distribution Width 18.5H, Platelet Count 51L, Mean Platelet Volume 9.4, Neutrophils (%) (Auto) , Lymphocytes (%) (Auto) , Monocytes (%) (Auto) , Eosinophils (%) (Auto) , Basophils (%) (Auto) , Differential Total Cells Counted 100, Neutrophils % ( Manual) 75, Lymphocytes % (Manual) 14L, Monocytes % (Manual) 6, Eosinophils % ( Manual) 0, Basophils % (Manual) 0, Metamyelocytes % 1H, Band Neutrophils 4, Nucleated Red Blood Cells 1, Platelet Estimate DecreasedL, Platelet Morphology Normal, Hypochromasia 1+, Anisocytosis 2+, Macrocytosis 1+, Sodium Level 157H, Potassium Level 3.5, Chloride Level 125H, Carbon Dioxide Level 25, Anion Gap 7, Blood Urea Nitrogen 11, Creatinine 0.6, Estimat Glomerular Filtration Rate > 60 , Glucose Level 103, Calcium Level 9.3, Total Bilirubin 12.7H, Direct Bilirubin 8.7H, Aspartate Amino Transf (AST/SGOT) 260H, Alanine Aminotransferase (ALT/SGPT ) 75, Alkaline Phosphatase 135H, Total Protein 5.9L, Albumin 1.5L, Globulin 4.4 , Albumin/Globulin Ratio 0.3L Height (Feet): 5 Height (Inches): 9.00 Weight (Pounds): 251 General Appearance: WD/WN, lethargic EENT: normal ENT inspection Neck: normal alignment, supple Cardiovascular: normal rate, regular rhythm Respiratory/Chest: lungs clear, normal breath sounds Abdomen: distended, guarding Edema: 1+ Arm (L), 1+ Arm (R), 1+ Leg (L), 1+ Leg (R), 1+ Pedal (L), 1+ Pedal ( R), 1+ Generalized Amos Pinon MD Jul 26, 2018 08:44
[2018-07-26] MEDS: Lactulose 20gm/30ml UDC ORAL SCH ×4 (09:28→21:12)
[2018-07-26] MEDS: Pantoprazole Inj IVP SCH ×2 (09:28→21:11)
[2018-07-26] MEDS: Nystatin Susp 500,000 units/5ml ORAL SCH ×4 (09:28→21:12)
[2018-07-26] MEDS: Cefepime HCl 2 GM in D5W 110 ML IVPB SCH ×2 (09:28→21:11)
[2018-07-26] MEDS: D5W w/KCl 20mEq 1,000 ML IV SCH ×2 (10:10→21:11)
--- NOTE | 2018-07-26 10:41 | Diagnostic Imaging Report ---
Indications: Needs long-term IV access Technique: Procedure performed at bedside. Procedural timeout performed. Ultrasound confirms patent compressible left basilic vein. Total sterile technique, including sterile probe cover and sterile gel, sterile gloves, hand hygiene, hat, mask,, sterile gown, large sterile drape, and preparation with 2% chlorhexidine utilized. Local anesthesia with 1% lidocaine. Under real-time ultrasound guidance, puncture basilic vein using 21-gauge needle, passage 0.018 guidewire, exchange for 5 Azeri peel-away sheath. 5 Azeri Bard dual-lumen power PICC cut to 46 cm. It was inserted through the peel-away sheath. Peel-away sheath and guidewire removed. Catheter fixed to the skin. Both catheter ports aspirated and flushed. Patient tolerated procedure well, without immediate complication. Followup chest x-ray obtained, documents catheter tip position at the cavoatrial junction Impression: Successful bedside placement of left arm PICC under sonographic guidance, as described above.
--- NOTE | 2018-07-26 10:41 | Infectious Diseases Prog Note ---
Assessment/Plan Assessment/Plan antibiotics : cefepime, rifaximin A 1. pneumonia 2. leucocytosis 3. cirrhosis 4. hepatic encephalopathy 5. anemia 6. 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 continue cefepime 2. will follow up cultures Subjective Constitutional: Denies: fever, chills Respiratory: Denies: shortness of breath, dry cough Gastrointestinal/Abdominal: Denies: nausea, vomiting, diarrhea Musculoskeletal: Denies: pain Allergies: Coded Allergies: LORAZEPAM (Verified Allergy, Unknown, 05/21/18) PENICILLINS (Verified Allergy, Unknown, 05/21/18) Objective Vital Signs Last 24 Hour Vital Signs Date Time Temp Pulse Resp B/P (MAP) Pulse Ox O2 Delivery O2 Flow Rate FiO2 07/26/18 04:00 91 07/26/18 04:00 98.0 88 20 119/67 (84) 100 98.0 07/26/18 04:00 Nasal Cannula 2.0 07/26/18 00:00 97.0 95 20 130/71 (90) 100 97.0 07/26/18 00:00 Nasal Cannula 2.0 07/26/18 00:00 94 07/25/18 20:00 87 07/25/18 20:00 97.7 90 19 148/80 (102) 100 97.7 07/25/18 20:00 Nasal Cannula 2.0 07/25/18 16:00 Nasal Cannula 2.0 07/25/18 16:00 90 07/25/18 16:00 97.9 90 20 134/76 (95) 99 97.9 07/25/18 12:30 88 07/25/18 12:00 98.1 88 20 135/79 (97) 99 98.1 07/25/18 12:00 Nasal Cannula 2.0 Height (Feet): 5 Height (Inches): 9.00 Weight (Pounds): 251 HEENT: other - sclera icteric Respiratory/Chest: lungs clear Cardiovascular: normal rate, regular rhythm, no gallop/murmur Abdomen: soft, non tender Extremities: other - + edema, left arm PICC Laboratory Tests Test 07/26/18 04:00 White Blood Count 20.2 K/UL (4.8-10.8) H Red Blood Count 2.32 M/UL (4.20-5.40) L Hemoglobin 7.3 G/DL (12.0-16.0) L Hematocrit 22.1 % (37.0-47.0) L Mean Corpuscular Volume 95 FL (80-99) Mean Corpuscular Hemoglobin 31.6 PG (27.0-31.0) H Mean Corpuscular Hemoglobin Concent 33.2 G/DL (32.0-36.0) Red Cell Distribution Width 18.5 % (11.6-14.8) H Platelet Count 51 K/UL (150-450) L Mean Platelet Volume 9.4 FL (6.5-10.1) Neutrophils (%) (Auto) % (45.0-75.0) Lymphocytes (%) (Auto) % (20.0-45.0) Monocytes (%) (Auto) % (1.0-10.0) Eosinophils (%) (Auto) % (0.0-3.0) Basophils (%) (Auto) % (0.0-2.0) Differential Total Cells Counted 100 Neutrophils % (Manual) 75 % (45-75) Lymphocytes % (Manual) 14 % (20-45) L Monocytes % (Manual) 6 % (1-10) Eosinophils % (Manual) 0 % (0-3) Basophils % (Manual) 0 % (0-2) Metamyelocytes % 1 % (0-0) H Band Neutrophils 4 % (0-8) Nucleated Red Blood Cells 1 /100 WBC Platelet Estimate Decreased L Platelet Morphology Normal Hypochromasia 1+ Anisocytosis 2+ Macrocytosis 1+ Sodium Level 157 MMOL/L (136-145) H Potassium Level 3.5 MMOL/L (3.5-5.1) Chloride Level 125 MMOL/L (98-107) H Carbon Dioxide Level 25 MMOL/L (21-32) Anion Gap 7 mmol/L (5-15) Blood Urea Nitrogen 11 mg/dL (7-18) Creatinine 0.6 MG/DL (0.55-1.30) Estimat Glomerular Filtration Rate > 60 mL/min (>60) Glucose Level 103 MG/DL (74-106) Calcium Level 9.3 MG/DL (8.5-10.1) Total Bilirubin 12.7 MG/DL (0.2-1.0) H Direct Bilirubin 8.7 MG/DL (0.0-0.3) H Aspartate Amino Transf (AST/SGOT) 260 U/L (15-37) H Alanine Aminotransferase (ALT/SGPT) 75 U/L (12-78) Alkaline Phosphatase 135 U/L (46-116) H Total Protein 5.9 G/DL (6.4-8.2) L Albumin 1.5 G/DL (3.4-5.0) L Globulin 4.4 g/dL Albumin/Globulin Ratio 0.3 (1.0-2.7) L Current Medications Medications (Trade) Dose Ordered Sig/Abner Route PRN Reason Start Time Stop Time Status Last Admin Dose Admin Cefepime HCl 2 gm/ Dextrose 110 ml @ 220 mls/hr EVERY 12 HOURS IVPB 07/23/18 12:00 07/30/18 11:59 07/26/18 09:28 Chlorhexidine Gluconate (Sierra-Hex 2%) 1 applic DAILY@2000 TOPIC 07/25/18 20:00 08/24/18 19:59 07/25/18 21:23 Dextrose/ Electrolytes 1,000 ml @ 100 mls/hr Q10H IV 07/24/18 08:30 08/23/18 08:29 07/26/18 10:10 Folic Acid (Folate) 1 mg DAILY ORAL 07/23/18 09:00 08/15/18 08:59 07/26/18 09:28 Heparin Sodium/ Sodium Chloride (Heparin 2000 units/Ns 1000ml premix) 2,000 unit ONCE PRN INJ picc line placement 07/25/18 12:45 07/27/18 12:44 Lactulose (Cephulac) 30 gm FOUR TIMES A DAY ORAL 07/22/18 18:00 08/15/18 17:59 07/26/18 09:28 Lidocaine HCl (Xylocaine 1% 30ml) 30 ml ONCE PRN INJ picc line placement 07/25/18 12:45 07/27/18 12:44 Nystatin (Nystatin) 5 ml QID ORAL 07/23/18 21:00 07/30/18 20:59 07/26/18 09:28 Ondansetron HCl (Zofran) 4 mg Q4H PRN IVP Nausea & Vomiting 07/22/18 13:30 08/15/18 17:29 Pantoprazole (Protonix) 40 mg EVERY 12 HOURS IVP 07/23/18 21:00 08/22/18 20:59 07/26/18 09:28 Potassium Chloride 100 ml @ 50 mls/hr ONCE IVPB 07/26/18 09:00 07/26/18 11:00 07/26/18 10:11 Rifaximin (Xifaxan) 550 mg EVERY 12 HOURS ORAL 07/22/18 21:00 08/20/18 20:59 07/26/18 09:28 BENITO WATT Jul 26, 2018 10:41
--- NOTE | 2018-07-26 11:01 | GI Progress Note ---
Assessment/Plan Problems: (1) Liver failure ICD Codes: K72.90 - Hepatic failure, unspecified without coma SNOMED: 33100002 Qualifiers: Qualified Codes: K72.01 - Acute and subacute hepatic failure with coma (2) Altered level of consciousness ICD Codes: R40.4 - Transient alteration of awareness SNOMED: 2213983 (3) GI bleed ICD Codes: K92.2 - Gastrointestinal hemorrhage, unspecified SNOMED: 18400571 Qualifiers: Qualified Codes: K92.2 - Gastrointestinal hemorrhage, unspecified (4) Hypokalemia ICD Codes: E87.6 - Hypokalemia SNOMED: 23775425 (5) Hepatic encephalopathy ICD Codes: K72.90 - Hepatic failure, unspecified without coma SNOMED: 49264293 (6) Anemia ICD Codes: D64.9 - Anemia, unspecified SNOMED: 065183273 Qualifiers: Qualified Codes: D64.9 - Anemia, unspecified Status: progressing Status Narrative Discussed with Dr. Rodriguez. Assessment/Plan Assessment - EtOH cirrhosis - Esophageal varicies - UGIB - s/p EGD and EBL - Anemia - more alert and oriented Recommendations - paracentesis >> r/o SBP - DO NOT reinsert NGT, can cause rebleed. - diet per ST - ppi BID - monitor labs - replace lytes - OOB The patient was seen and examined at bedside and all new and available data was reviewed in the patients chart. I agree with the above findings, impression and plan. (Patient seen earlier today. Signature stamp does not reflect patient encounter time.). - Christopher Rodriguez MD Subjective Gastrointestinal/Abdominal: Reports: no symptoms, abdomen distended Objective Last 24 Hour Vital Signs Date Time Temp Pulse Resp B/P (MAP) Pulse Ox O2 Delivery O2 Flow Rate FiO2 07/26/18 04:00 91 07/26/18 04:00 98.0 88 20 119/67 (84) 100 98.0 07/26/18 04:00 Nasal Cannula 2.0 07/26/18 00:00 97.0 95 20 130/71 (90) 100 97.0 07/26/18 00:00 Nasal Cannula 2.0 07/26/18 00:00 94 07/25/18 20:00 87 07/25/18 20:00 97.7 90 19 148/80 (102) 100 97.7 07/25/18 20:00 Nasal Cannula 2.0 07/25/18 16:00 Nasal Cannula 2.0 07/25/18 16:00 90 07/25/18 16:00 97.9 90 20 134/76 (95) 99 97.9 07/25/18 12:30 88 07/25/18 12:00 98.1 88 20 135/79 (97) 99 98.1 07/25/18 12:00 Nasal Cannula 2.0 Intake and Output 07/25/18 07/26/18 19:00 07:00 Intake Total 1430 ml 200 ml Output Total 900 ml 1300 ml Balance 530 ml -1100 ml Intake Oral 670 ml 200 ml IV Total 760 ml Output Urine Total 500 ml 1000 ml Stool Total 400 ml 300 ml Laboratory Tests Test 07/26/18 04:00 White Blood Count 20.2 K/UL (4.8-10.8) H Red Blood Count 2.32 M/UL (4.20-5.40) L Hemoglobin 7.3 G/DL (12.0-16.0) L Hematocrit 22.1 % (37.0-47.0) L Mean Corpuscular Volume 95 FL (80-99) Mean Corpuscular Hemoglobin 31.6 PG (27.0-31.0) H Mean Corpuscular Hemoglobin Concent 33.2 G/DL (32.0-36.0) Red Cell Distribution Width 18.5 % (11.6-14.8) H Platelet Count 51 K/UL (150-450) L Mean Platelet Volume 9.4 FL (6.5-10.1) Neutrophils (%) (Auto) % (45.0-75.0) Lymphocytes (%) (Auto) % (20.0-45.0) Monocytes (%) (Auto) % (1.0-10.0) Eosinophils (%) (Auto) % (0.0-3.0) Basophils (%) (Auto) % (0.0-2.0) Differential Total Cells Counted 100 Neutrophils % (Manual) 75 % (45-75) Lymphocytes % (Manual) 14 % (20-45) L Monocytes % (Manual) 6 % (1-10) Eosinophils % (Manual) 0 % (0-3) Basophils % (Manual) 0 % (0-2) Metamyelocytes % 1 % (0-0) H Band Neutrophils 4 % (0-8) Nucleated Red Blood Cells 1 /100 WBC Platelet Estimate Decreased L Platelet Morphology Normal Hypochromasia 1+ Anisocytosis 2+ Macrocytosis 1+ Sodium Level 157 MMOL/L (136-145) H Potassium Level 3.5 MMOL/L (3.5-5.1) Chloride Level 125 MMOL/L (98-107) H Carbon Dioxide Level 25 MMOL/L (21-32) Anion Gap 7 mmol/L (5-15) Blood Urea Nitrogen 11 mg/dL (7-18) Creatinine 0.6 MG/DL (0.55-1.30) Estimat Glomerular Filtration Rate > 60 mL/min (>60) Glucose Level 103 MG/DL (74-106) Calcium Level 9.3 MG/DL (8.5-10.1) Total Bilirubin 12.7 MG/DL (0.2-1.0) H Direct Bilirubin 8.7 MG/DL (0.0-0.3) H Aspartate Amino Transf (AST/SGOT) 260 U/L (15-37) H Alanine Aminotransferase (ALT/SGPT) 75 U/L (12-78) Alkaline Phosphatase 135 U/L (46-116) H Total Protein 5.9 G/DL (6.4-8.2) L Albumin 1.5 G/DL (3.4-5.0) L Globulin 4.4 g/dL Albumin/Globulin Ratio 0.3 (1.0-2.7) L Height (Feet): 5 Height (Inches): 9.00 Weight (Pounds): 251 General Appearance: WD/WN, no apparent distress, alert Cardiovascular: normal rate Respiratory/Chest: normal breath sounds, no respiratory distress Abdominal Exam: normal bowel sounds, non tender, soft, ascites Extremities: non-tender Markus Lebron NP Jul 26, 2018 11:01
[2018-07-26 11:47] LABS: INR 1.7 (0.9-1.1)
[2018-07-26 12:00] VITALS: BP 141/69
[2018-07-26 16:00] VITALS: BP 119/68
[2018-07-26 20:00] VITALS: BP 129/69
[2018-07-26] MEDS: Dyna-Hex 2% Top Sol 2oz TOPIC SCH (21:10)
[2018-07-27] VITALS: BP 124/75
[2018-07-27 04:00] VITALS: BP 126/74
[2018-07-27 05:26] LABS: HEMATOCRIT 21.6 % (37.0-47.0); HEMOGLOBIN 7.2 G/DL (12.0-16.0); MEAN CORPUSCULAR VOLUME 95 FL (80-99); PLATELET COUNT 59 K/UL (150-450); RED BLOOD COUNT 2.27 M/UL (4.20-5.40); RED CELL DISTRIBUTION WIDTH 18.4 % (11.6-14.8)
[2018-07-27 05:38] LABS: WHITE BLOOD COUNT 22.6 K/UL (4.8-10.8)
[2018-07-27 06:19] LABS: ALANINE AMINOTRANSFERASE 72 U/L (12-78); ALBUMIN 1.5 G/DL (3.4-5.0); ALBUMIN/GLOBULIN RATIO 0.3 (1.0-2.7); ALKALINE PHOSPHATASE 154 U/L (46-116); ANION GAP 7 mmol/L (5-15); ASPARTATE AMINO TRANSFERASE 251 U/L (15-37); BILIRUBIN,TOTAL 10.1 MG/DL (0.2-1.0); BLOOD UREA NITROGEN 10 mg/dL (7-18); CALCIUM 9.2 MG/DL (8.5-10.1); CARBON DIOXIDE 24 MMOL/L (21-32); CHLORIDE 121 MMOL/L (98-107); CREATININE 0.7 MG/DL (0.55-1.30); POTASSIUM 3.5 MMOL/L (3.5-5.1); SODIUM 152 MMOL/L (136-145)
[2018-07-27] MEDS: D5W w/KCl 20mEq 1,000 ML IV SCH ×2 (06:32→17:02)
[2018-07-27 07:00] LABS: BILIRUBIN,DIRECT 7.3 MG/DL (0.0-0.3)
--- NOTE | 2018-07-27 07:10 | General Progress Note ---
Assessment/Plan Problem List: (1) Altered level of consciousness ICD Codes: R40.4 - Transient alteration of awareness SNOMED: 8963055 (2) GI bleed ICD Codes: K92.2 - Gastrointestinal hemorrhage, unspecified SNOMED: 26708861 Qualifiers: Qualified Codes: K92.2 - Gastrointestinal hemorrhage, unspecified (3) Anemia ICD Codes: D64.9 - Anemia, unspecified SNOMED: 314011295 Qualifiers: Qualified Codes: D64.9 - Anemia, unspecified (4) Hypokalemia ICD Codes: E87.6 - Hypokalemia SNOMED: 15978823 (5) Hepatic encephalopathy ICD Codes: K72.90 - Hepatic failure, unspecified without coma SNOMED: 00102131 (6) Ascites ICD Codes: R18.8 - Other ascites SNOMED: 806167948 (7) Leukocytosis ICD Codes: D72.829 - Elevated white blood cell count, unspecified SNOMED: 209597105, 525446533 Assessment/Plan Assessment - EtOH cirrhosis - Esophageal varicies - UGIB - s/p EGD and EBL - Anemia Recommendations - paracentesis >> r/o SBP>> fu - DO NOT reinsert NGT, can cause rebleed. - diet per ST - ppi BID - monitor labs - replace lytes - propanolol 10 mg TID -repeat labs in am Subjective ROS Limited/Unobtainable: No Allergies: Coded Allergies: LORAZEPAM (Verified Allergy, Unknown, 05/21/18) PENICILLINS (Verified Allergy, Unknown, 05/21/18) Subjective patient has liver disease and active GIB needs emergency EGD can not find reach family for consent will proceed with emergency consent Objective Last 24 Hour Vital Signs Date Time Temp Pulse Resp B/P (MAP) Pulse Ox O2 Delivery O2 Flow Rate FiO2 07/27/18 04:00 Nasal Cannula 2.0 07/27/18 04:00 98.2 98 19 126/74 (91) 96 98.2 07/27/18 04:00 101 07/27/18 00:00 98.2 104 19 124/75 (91) 97 98.2 07/27/18 00:00 Nasal Cannula 2.0 07/27/18 00:00 106 07/26/18 20:00 98.8 100 19 129/69 (89) 97 98.8 07/26/18 20:00 Nasal Cannula 2.0 07/26/18 20:00 103 07/26/18 16:00 Nasal Cannula 2.0 07/26/18 16:00 98.2 102 24 119/68 (85) 99 98.2 07/26/18 16:00 102 07/26/18 12:00 Nasal Cannula 2.0 07/26/18 12:00 97.9 99 24 141/69 (93) 95 97.9 07/26/18 12:00 97 07/26/18 08:00 100 07/26/18 08:00 Nasal Cannula 2.0 Intake and Output 07/26/18 07/27/18 19:00 07:00 Intake Total 2140 ml 1241 ml Output Total 2230 ml 600 ml Balance -90 ml 641 ml Intake Oral 920 ml 200 ml IV Total 1220 ml 1041 ml Output Urine Total 380 ml 400 ml Stool Total 50 ml 200 ml Other 1800 ml Laboratory Tests 07/26/18 11:00: Prothrombin Time 17.4H, Prothromb Time International Ratio 1.7H, Activated Partial Thromboplast Time 37H 07/27/18 04:50: White Blood Count 22.6*H, Red Blood Count 2.27L, Hemoglobin 7.2L, Hematocrit 21.6L, Mean Corpuscular Volume 95, Mean Corpuscular Hemoglobin 31.7H, Mean Corpuscular Hemoglobin Concent 33.4, Red Cell Distribution Width 18.4H, Platelet Count 59L, Mean Platelet Volume 10.7H, Neutrophils (%) (Auto) , Lymphocytes (%) (Auto) , Monocytes (%) (Auto) , Eosinophils (%) (Auto) , Basophils (%) (Auto) , Neutrophils % (Manual) [Pending], Lymphocytes % (Manual) [Pending], Sodium Level 152H, Potassium Level 3.5, Chloride Level 121H, Carbon Dioxide Level 24, Anion Gap 7, Blood Urea Nitrogen 10, Creatinine 0.7, Estimat Glomerular Filtration Rate > 60, Glucose Level 97, Calcium Level 9.2, Total Bilirubin 10.1H, Direct Bilirubin 7.3H, Aspartate Amino Transf (AST/SGOT) 251H, Alanine Aminotransferase (ALT/SGPT) 72, Alkaline Phosphatase 154H, Total Protein 5.9L, Albumin 1.5L, Globulin 4.4, Albumin/Globulin Ratio 0.3L Height (Feet): 5 Height (Inches): 9.00 Weight (Pounds): 250 General Appearance: no apparent distress EENT: normal ENT inspection Neck: supple Cardiovascular: normal rate Respiratory/Chest: decreased breath sounds Abdomen: soft, hypoactive bowel sounds, distended Extremities: non-tender Christopher Rodriguez MD Jul 27, 2018 07:10
--- NOTE | 2018-07-27 07:39 | Nephrology Progress Note ---
Assessment/Plan Assessment/Plan A/P 1) Hypok+/Mg/Phos- corrected 2) Tranaminitis/liver failure- per GI mgmt - due to alcohol. Patient stable today 3) Alcohol Abuse/Dependancy- thiamine and folate 4) GI Bleed- Mgmt per GI. Anemia-, Bld Tx PRN, 5) Hypernatremia- IVFs D5W to 100 ml/hr - Na improved to 152 6) Leukocytosis- per ID Subjective Date patient seen: Jul 27, 2018 Time patient seen: 07:37 ROS Limited/Unobtainable: No Constitutional: Reports: weakness Neurologic/Psychiatric: Reports: other - CONFUSED Allergies: Coded Allergies: LORAZEPAM (Verified Allergy, Unknown, 05/21/18) PENICILLINS (Verified Allergy, Unknown, 05/21/18) Subjective Patient ill appearing and mildly confused Objective Last 24 Hour Vital Signs Date Time Temp Pulse Resp B/P (MAP) Pulse Ox O2 Delivery O2 Flow Rate FiO2 07/27/18 04:00 Nasal Cannula 2.0 07/27/18 04:00 98.2 98 19 126/74 (91) 96 98.2 07/27/18 04:00 101 07/27/18 00:00 98.2 104 19 124/75 (91) 97 98.2 07/27/18 00:00 Nasal Cannula 2.0 07/27/18 00:00 106 07/26/18 20:00 98.8 100 19 129/69 (89) 97 98.8 07/26/18 20:00 Nasal Cannula 2.0 07/26/18 20:00 103 07/26/18 16:00 Nasal Cannula 2.0 07/26/18 16:00 98.2 102 24 119/68 (85) 99 98.2 07/26/18 16:00 102 07/26/18 12:00 Nasal Cannula 2.0 07/26/18 12:00 97.9 99 24 141/69 (93) 95 97.9 07/26/18 12:00 97 07/26/18 08:00 100 07/26/18 08:00 Nasal Cannula 2.0 Intake and Output 07/26/18 07/27/18 19:00 07:00 Intake Total 2140 ml 1241 ml Output Total 2230 ml 600 ml Balance -90 ml 641 ml Intake Oral 920 ml 200 ml IV Total 1220 ml 1041 ml Output Urine Total 380 ml 400 ml Stool Total 50 ml 200 ml Other 1800 ml Laboratory Tests 07/26/18 11:00: Prothrombin Time 17.4H, Prothromb Time International Ratio 1.7H, Activated Partial Thromboplast Time 37H 07/27/18 04:50: White Blood Count 22.6*H, Red Blood Count 2.27L, Hemoglobin 7.2L, Hematocrit 21.6L, Mean Corpuscular Volume 95, Mean Corpuscular Hemoglobin 31.7H, Mean Corpuscular Hemoglobin Concent 33.4, Red Cell Distribution Width 18.4H, Platelet Count 59L, Mean Platelet Volume 10.7H, Neutrophils (%) (Auto) , Lymphocytes (%) (Auto) , Monocytes (%) (Auto) , Eosinophils (%) (Auto) , Basophils (%) (Auto) , Neutrophils % (Manual) [Pending], Lymphocytes % (Manual) [Pending], Sodium Level 152H, Potassium Level 3.5, Chloride Level 121H, Carbon Dioxide Level 24, Anion Gap 7, Blood Urea Nitrogen 10, Creatinine 0.7, Estimat Glomerular Filtration Rate > 60, Glucose Level 97, Calcium Level 9.2, Total Bilirubin 10.1H, Direct Bilirubin 7.3H, Aspartate Amino Transf (AST/SGOT) 251H, Alanine Aminotransferase (ALT/SGPT) 72, Alkaline Phosphatase 154H, Total Protein 5.9L, Albumin 1.5L, Globulin 4.4, Albumin/Globulin Ratio 0.3L Height (Feet): 5 Height (Inches): 9.00 Weight (Pounds): 250 General Appearance: no apparent distress EENT: PERRL/EOMI Neck: normal alignment, supple Cardiovascular: normal rate, regular rhythm Respiratory/Chest: lungs clear, normal breath sounds Abdomen: non tender, soft Edema: no edema noted Arm (L), no edema noted Arm (R), no edema noted Leg (L), no edema noted Leg (R), no edema noted Pedal (L), no edema noted Pedal (R), no edema noted Generalized Amos Pinon MD Jul 27, 2018 07:39
[2018-07-27 08:00] VITALS: BP 135/75
[2018-07-27] MEDS: Cefepime HCl 2 GM in D5W 110 ML IVPB SCH ×2 (09:33→21:11)
[2018-07-27] MEDS: Pantoprazole Inj IVP SCH ×2 (09:33→21:12)
[2018-07-27] MEDS: Nystatin Susp 500,000 units/5ml ORAL SCH ×4 (09:34→21:11)
[2018-07-27] MEDS: Lactulose 20gm/30ml UDC ORAL SCH ×5 (09:35→21:11)
--- NOTE | 2018-07-27 09:43 | Pulmonology Progress Note ---
Assessment/Plan Assessment/Plan 1. Malnutrition. 2. Hepatic failure. 3. Suspicion of alcohol abuse. 4. Severe hypokalemia. 5. Hyperglycemia. 6. Leukocytosis. 7. Anemia. 8. GI bleed 9. Pneumonia DISCUSSION: 1. Anemia. S/p GI bleed; S/p EGD and banding. I will monitor hemoglobin and follow recs by GI.transfuse per GI. 2. Hypokalemia, severe. Now corrected. 3. Suspicion of alcohol abuse. There is no clear history of alcohol; however, the AST/ALT ratio is suggestive of it. Mother was reporting she was consuming alcohol. Continue thiamine and folic acid. 4. Hepatic failure. This is apparently a chronic problem. Seen by Gastroenterology to assist in this matter. I will also continue lactulose. Seen by ID given high WBC Probably has pneumonia CXR reviewed I will follow carefully. Subjective Interval Events: Sodium better; WBC worse Constitutional: Reports: no symptoms HEENT: Repors: no symptoms Respiratory: Reports: no symptoms Cardiovascular: Reports: no symptoms Gastrointestinal/Abdominal: Reports: no symptoms Genitourinary: Reports: no symptoms Allergies: Coded Allergies: LORAZEPAM (Verified Allergy, Unknown, 05/21/18) PENICILLINS (Verified Allergy, Unknown, 05/21/18) Objective Last 24 Hour Vital Signs Date Time Temp Pulse Resp B/P (MAP) Pulse Ox O2 Delivery O2 Flow Rate FiO2 07/27/18 08:00 98.1 99 20 135/75 (95) 98 98.1 07/27/18 08:00 Nasal Cannula 2.0 07/27/18 04:00 Nasal Cannula 2.0 07/27/18 04:00 98.2 98 19 126/74 (91) 96 98.2 07/27/18 04:00 101 07/27/18 00:00 98.2 104 19 124/75 (91) 97 98.2 07/27/18 00:00 Nasal Cannula 2.0 07/27/18 00:00 106 07/26/18 20:00 98.8 100 19 129/69 (89) 97 98.8 07/26/18 20:00 Nasal Cannula 2.0 07/26/18 20:00 103 07/26/18 16:00 Nasal Cannula 2.0 07/26/18 16:00 98.2 102 24 119/68 (85) 99 98.2 07/26/18 16:00 102 07/26/18 12:00 Nasal Cannula 2.0 07/26/18 12:00 97.9 99 24 141/69 (93) 95 97.9 07/26/18 12:00 97 Intake and Output 07/26/18 07/27/18 19:00 07:00 Intake Total 2140 ml 1241 ml Output Total 2230 ml 600 ml Balance -90 ml 641 ml Intake Oral 920 ml 200 ml IV Total 1220 ml 1041 ml Output Urine Total 380 ml 400 ml Stool Total 50 ml 200 ml Other 1800 ml General Appearance: no acute distress HEENT: normocephalic Respiratory/Chest: chest wall non-tender, lungs clear Cardiovascular: normal peripheral pulses, normal rate Abdomen: normal bowel sounds, soft, non tender Laboratory Tests 07/26/18 11:00: Prothrombin Time 17.4H, Prothromb Time International Ratio 1.7H, Activated Partial Thromboplast Time 37H 07/27/18 04:50: White Blood Count 22.6*H, Red Blood Count 2.27L, Hemoglobin 7.2L, Hematocrit 21.6L, Mean Corpuscular Volume 95, Mean Corpuscular Hemoglobin 31.7H, Mean Corpuscular Hemoglobin Concent 33.4, Red Cell Distribution Width 18.4H, Platelet Count 59L, Mean Platelet Volume 10.7H, Neutrophils (%) (Auto) , Lymphocytes (%) (Auto) , Monocytes (%) (Auto) , Eosinophils (%) (Auto) , Basophils (%) (Auto) , Differential Total Cells Counted 100, Neutrophils % ( Manual) 64, Lymphocytes % (Manual) 21, Monocytes % (Manual) 8, Eosinophils % ( Manual) 0, Basophils % (Manual) 0, Metamyelocytes % 1H, Band Neutrophils 6, Platelet Estimate DecreasedL, Platelet Morphology Normal, Hypochromasia 1+, Anisocytosis 2+, Macrocytosis 1+, Sodium Level 152H, Potassium Level 3.5, Chloride Level 121H, Carbon Dioxide Level 24, Anion Gap 7, Blood Urea Nitrogen 10, Creatinine 0.7, Estimat Glomerular Filtration Rate > 60, Glucose Level 97, Calcium Level 9.2, Total Bilirubin 10.1H, Direct Bilirubin 7.3H, Aspartate Amino Transf (AST/SGOT) 251H, Alanine Aminotransferase (ALT/SGPT) 72, Alkaline Phosphatase 154H, Total Protein 5.9L, Albumin 1.5L, Globulin 4.4, Albumin/ Globulin Ratio 0.3L Current Medications Medications (Trade) Dose Ordered Sig/Abner Route PRN Reason Start Time Stop Time Status Last Admin Dose Admin Cefepime HCl 2 gm/ Dextrose 110 ml @ 220 mls/hr EVERY 12 HOURS IVPB 07/23/18 12:00 07/30/18 11:59 07/27/18 09:33 Chlorhexidine Gluconate (Sierra-Hex 2%) 1 applic DAILY@2000 TOPIC 07/25/18 20:00 08/24/18 19:59 07/26/18 21:10 Dextrose/ Electrolytes 1,000 ml @ 100 mls/hr Q10H IV 07/24/18 08:30 08/23/18 08:29 07/27/18 06:32 Folic Acid (Folate) 1 mg DAILY ORAL 07/23/18 09:00 08/15/18 08:59 07/27/18 09:34 Heparin Sodium/ Sodium Chloride (Heparin 2000 units/Ns 1000ml premix) 2,000 unit ONCE PRN INJ picc line placement 07/25/18 12:45 07/27/18 12:44 Lactulose (Cephulac) 30 gm FOUR TIMES A DAY ORAL 07/22/18 18:00 08/15/18 17:59 07/27/18 09:35 Lidocaine HCl (Xylocaine 1% 30ml) 30 ml ONCE PRN INJ picc line placement 07/25/18 12:45 07/27/18 12:44 Nystatin (Nystatin) 5 ml QID ORAL 07/23/18 21:00 07/30/18 20:59 07/27/18 09:34 Ondansetron HCl (Zofran) 4 mg Q4H PRN IVP Nausea & Vomiting 07/22/18 13:30 08/15/18 17:29 Pantoprazole (Protonix) 40 mg EVERY 12 HOURS IVP 07/23/18 21:00 08/22/18 20:59 07/27/18 09:33 Potassium Chloride 100 ml @ 50 mls/hr ONCE IVPB 07/27/18 07:45 07/27/18 09:45 07/27/18 09:33 Propranolol HCl (Inderal) 10 mg Q8HR ORAL 07/27/18 14:00 08/26/18 13:59 Rifaximin (Xifaxan) 550 mg EVERY 12 HOURS ORAL 07/22/18 21:00 08/20/18 20:59 07/27/18 09:00 Bowen Choudhury MD Jul 27, 2018 09:43
[2018-07-27 12:00] VITALS: BP 127/80
[2018-07-27] MEDS: Propranolol 10mg tab ORAL SCH ×2 (13:09→21:35)
[2018-07-27 16:00] VITALS: BP 119/72
[2018-07-27] MEDS ORDERED: NS 500ML ONE (16:33)
[2018-07-27] MEDS ORDERED: Tubing IV Secondary IV ONE ×2 (16:33→16:40)
[2018-07-27] MEDS ORDERED: Tubing IV Blood Pump IV ONE (16:40)
[2018-07-27] MEDS ORDERED: NS 275ml ONE (16:40)
[2018-07-27] MEDS: Dyna-Hex 2% Top Sol 2oz TOPIC SCH (19:57)
[2018-07-27 20:00] VITALS: BP 122/75
[2018-07-28] VITALS: BP 127/77
[2018-07-28] MEDS: D5W w/KCl 20mEq 1,000 ML IV SCH (02:36)
[2018-07-28 04:00] VITALS: BP 135/74
[2018-07-28 04:59] LABS: HEMATOCRIT 21.1 % (37.0-47.0); MEAN CORPUSCULAR VOLUME 95 FL (80-99); PLATELET COUNT 66 K/UL (150-450); RED BLOOD COUNT 2.22 M/UL (4.20-5.40); RED CELL DISTRIBUTION WIDTH 17.9 % (11.6-14.8)
[2018-07-28 05:04] LABS: WHITE BLOOD COUNT 24.7 K/UL (4.8-10.8)
[2018-07-28 05:09] LABS: INR 1.7 (0.9-1.1)
[2018-07-28 05:16] LABS: ANION GAP 6 mmol/L (5-15); BLOOD UREA NITROGEN 11 mg/dL (7-18); CARBON DIOXIDE 25 MMOL/L (21-32); CHLORIDE 119 MMOL/L (98-107); CREATININE 0.7 MG/DL (0.55-1.30); POTASSIUM 3.8 MMOL/L (3.5-5.1); SODIUM 150 MMOL/L (136-145)
[2018-07-28 05:18] LABS: AMMONIA 50 umol/L (11-32)
[2018-07-28 05:22] LABS: ALANINE AMINOTRANSFERASE 80 U/L (12-78); ALBUMIN 1.4 G/DL (3.4-5.0); ALBUMIN/GLOBULIN RATIO 0.3 (1.0-2.7); ALKALINE PHOSPHATASE 148 U/L (46-116); ANION GAP 7 mmol/L (5-15); ASPARTATE AMINO TRANSFERASE 257 U/L (15-37); BLOOD UREA NITROGEN 11 mg/dL (7-18); CALCIUM 8.9 MG/DL (8.5-10.1); CARBON DIOXIDE 24 MMOL/L (21-32); CHLORIDE 118 MMOL/L (98-107); CREATININE 0.7 MG/DL (0.55-1.30); POTASSIUM 3.8 MMOL/L (3.5-5.1); SODIUM 149 MMOL/L (136-145)
[2018-07-28 05:31] LABS: BILIRUBIN,DIRECT 6.1 MG/DL (0.0-0.3)
[2018-07-28] MEDS: Propranolol 10mg tab ORAL SCH ×3 (06:13→22:00)
[2018-07-28] MEDS ORDERED: Isovue-300 100ml vial INJ PRN ×2 (07:30)
--- NOTE | 2018-07-28 07:33 | General Progress Note ---
Assessment/Plan Problem List: (1) Altered level of consciousness ICD Codes: R40.4 - Transient alteration of awareness SNOMED: 1015997 (2) GI bleed ICD Codes: K92.2 - Gastrointestinal hemorrhage, unspecified SNOMED: 80263868 Qualifiers: Qualified Codes: K92.2 - Gastrointestinal hemorrhage, unspecified (3) Anemia ICD Codes: D64.9 - Anemia, unspecified SNOMED: 623929810 Qualifiers: Qualified Codes: D64.9 - Anemia, unspecified (4) Hypokalemia ICD Codes: E87.6 - Hypokalemia SNOMED: 01812284 (5) Hepatic encephalopathy ICD Codes: K72.90 - Hepatic failure, unspecified without coma SNOMED: 06439909 (6) Ascites ICD Codes: R18.8 - Other ascites SNOMED: 536283719 (7) Leukocytosis ICD Codes: D72.829 - Elevated white blood cell count, unspecified SNOMED: 106611073, 677587294 Assessment/Plan Assessment - EtOH cirrhosis - Esophageal varicies - UGIB - s/p EGD and EBL - Anemia Recommendations - paracentesis >> r/o SBP>> fu - DO NOT reinsert NGT, can cause rebleed. - diet per ST - ppi BID - monitor labs - replace lytes - propanolol 10 mg TID -repeat labs in am -ordered encarnacion CT to evaluate the source for leukocytosis Subjective Allergies: Coded Allergies: LORAZEPAM (Verified Allergy, Unknown, 05/21/18) PENICILLINS (Verified Allergy, Unknown, 05/21/18) Objective Last 24 Hour Vital Signs Date Time Temp Pulse Resp B/P (MAP) Pulse Ox O2 Delivery O2 Flow Rate FiO2 07/28/18 06:13 96 135/74 07/28/18 04:00 96 07/28/18 04:00 Nasal Cannula 2.0 07/28/18 04:00 97.7 96 18 135/74 (94) 98 97.7 07/28/18 00:00 98.0 93 16 127/77 (94) 98 98.0 07/28/18 00:00 Nasal Cannula 2.0 07/28/18 00:00 95 07/27/18 21:35 92 119/72 07/27/18 20:00 92 07/27/18 20:00 98.5 84 18 122/75 (91) 98 98.5 07/27/18 20:00 Nasal Cannula 2.0 07/27/18 16:00 Nasal Cannula 2.0 07/27/18 16:00 87 07/27/18 16:00 98.9 86 20 119/72 (88) 97 98.9 07/27/18 13:09 101 127/80 07/27/18 12:00 98.0 101 21 127/80 (96) 96 98.0 07/27/18 12:00 101 07/27/18 12:00 Nasal Cannula 2.0 07/27/18 08:00 98.1 99 20 135/75 (95) 98 98.1 07/27/18 08:00 Nasal Cannula 2.0 07/27/18 08:00 101 Intake and Output 07/27/18 07/28/18 19:00 07:00 Intake Total 100 ml 1820 ml Output Total 300 ml 800 ml Balance -200 ml 1020 ml Intake Oral 720 ml IV Total 100 ml 1100 ml Output Urine Total 400 ml Stool Total 300 ml 400 ml Laboratory Tests 07/28/18 04:30: White Blood Count 24.7*H, Red Blood Count 2.22L, Hemoglobin 7.0L, Hematocrit 21.1L, Mean Corpuscular Volume 95, Mean Corpuscular Hemoglobin 31.5H, Mean Corpuscular Hemoglobin Concent 33.1, Red Cell Distribution Width 17.9H, Platelet Count 66L, Mean Platelet Volume 10.5H, Neutrophils (%) (Auto) , Lymphocytes (%) (Auto) , Monocytes (%) (Auto) , Eosinophils (%) (Auto) , Basophils (%) (Auto) , Neutrophils % (Manual) [Pending], Lymphocytes % (Manual) [Pending], Platelet Estimate [Pending], Platelet Morphology [Pending], Prothrombin Time 17.4H, Prothromb Time International Ratio 1.7H, Sodium Level 150H, Potassium Level 3.8, Chloride Level 119H, Carbon Dioxide Level 25, Anion Gap 6, Blood Urea Nitrogen 11, Creatinine 0.7, Estimat Glomerular Filtration Rate > 60, Glucose Level 101, Calcium Level 9.0, Total Bilirubin 8.0H, Direct Bilirubin 6.1H, Aspartate Amino Transf (AST/SGOT) 257H, Alanine Aminotransferase (ALT/SGPT) 80H, Alkaline Phosphatase 148H, Ammonia 50H, Total Protein 5.8L, Albumin 1.4L, Globulin 4.4, Albumin/Globulin Ratio 0.3L Height (Feet): 5 Height (Inches): 9.00 Weight (Pounds): 250 General Appearance: lethargic EENT: normal ENT inspection Neck: supple Cardiovascular: normal rate Respiratory/Chest: decreased breath sounds Abdomen: soft, decreased bowel sounds, distended Extremities: non-tender Christopher Rodriguez MD Jul 28, 2018 07:33
[2018-07-28 08:00] VITALS: BP 113/74
--- NOTE | 2018-07-28 08:40 | Nephrology Progress Note ---
Assessment/Plan Assessment/Plan A/P 1) Hypok+/Mg/Phos- corrected - replace as needed 2) Tranaminitis/liver failure/GI Bleed- per GI mgmt - due to alcohol. 3) Alcohol Abuse/Dependancy- thiamine and folate 4) GI Bleed- Mgmt per GI. Anemia-, Bld Tx 1 unit PRBC today 5) Hypernatremia- IVFs D5W to 100 ml/hr - Na improved to 149. DC IVFs 6) Leukocytosis- per ID Subjective Date patient seen: Jul 28, 2018 Time patient seen: 08:36 Allergies: Coded Allergies: LORAZEPAM (Verified Allergy, Unknown, 05/21/18) PENICILLINS (Verified Allergy, Unknown, 05/21/18) All Systems: reviewed and negative except above Subjective Patient improving and more awake and alert this am Objective Last 24 Hour Vital Signs Date Time Temp Pulse Resp B/P (MAP) Pulse Ox O2 Delivery O2 Flow Rate FiO2 07/28/18 06:13 96 135/74 07/28/18 04:00 96 07/28/18 04:00 Nasal Cannula 2.0 07/28/18 04:00 97.7 96 18 135/74 (94) 98 97.7 07/28/18 00:00 98.0 93 16 127/77 (94) 98 98.0 07/28/18 00:00 Nasal Cannula 2.0 07/28/18 00:00 95 07/27/18 21:35 92 119/72 07/27/18 20:00 92 07/27/18 20:00 98.5 84 18 122/75 (91) 98 98.5 07/27/18 20:00 Nasal Cannula 2.0 07/27/18 16:00 Nasal Cannula 2.0 07/27/18 16:00 87 07/27/18 16:00 98.9 86 20 119/72 (88) 97 98.9 07/27/18 13:09 101 127/80 07/27/18 12:00 98.0 101 21 127/80 (96) 96 98.0 07/27/18 12:00 101 07/27/18 12:00 Nasal Cannula 2.0 Intake and Output 07/27/18 07/28/18 19:00 07:00 Intake Total 100 ml 1820 ml Output Total 300 ml 800 ml Balance -200 ml 1020 ml Intake Oral 720 ml IV Total 100 ml 1100 ml Output Urine Total 400 ml Stool Total 300 ml 400 ml Laboratory Tests 07/28/18 04:30: White Blood Count 24.7*H, Red Blood Count 2.22L, Hemoglobin 7.0L, Hematocrit 21.1L, Mean Corpuscular Volume 95, Mean Corpuscular Hemoglobin 31.5H, Mean Corpuscular Hemoglobin Concent 33.1, Red Cell Distribution Width 17.9H, Platelet Count 66L, Mean Platelet Volume 10.5H, Neutrophils (%) (Auto) , Lymphocytes (%) (Auto) , Monocytes (%) (Auto) , Eosinophils (%) (Auto) , Basophils (%) (Auto) , Neutrophils % (Manual) [Pending], Lymphocytes % (Manual) [Pending], Platelet Estimate [Pending], Platelet Morphology [Pending], Prothrombin Time 17.4H, Prothromb Time International Ratio 1.7H, Sodium Level 150H, Potassium Level 3.8, Chloride Level 119H, Carbon Dioxide Level 25, Anion Gap 6, Blood Urea Nitrogen 11, Creatinine 0.7, Estimat Glomerular Filtration Rate > 60, Glucose Level 101, Calcium Level 9.0, Total Bilirubin 8.0H, Direct Bilirubin 6.1H, Aspartate Amino Transf (AST/SGOT) 257H, Alanine Aminotransferase (ALT/SGPT) 80H, Alkaline Phosphatase 148H, Ammonia 50H, Total Protein 5.8L, Albumin 1.4L, Globulin 4.4, Albumin/Globulin Ratio 0.3L Height (Feet): 5 Height (Inches): 9.00 Weight (Pounds): 250 General Appearance: WD/WN EENT: PERRL/EOMI, scleral icterus Neck: normal alignment, supple Cardiovascular: normal rate, regular rhythm Respiratory/Chest: lungs clear Abdomen: non tender, soft, distended, guarding Edema: 1+ Arm (L), 1+ Arm (R), 1+ Leg (L), 1+ Leg (R), 1+ Pedal (L), 1+ Pedal ( R), 1+ Generalized Amos Pinon MD Jul 28, 2018 08:40
[2018-07-28] MEDS: Pantoprazole Inj IVP SCH ×2 (08:48→21:19)
[2018-07-28] MEDS: Nystatin Susp 500,000 units/5ml ORAL SCH ×4 (08:48→21:20)
[2018-07-28] MEDS: Lactulose 20gm/30ml UDC ORAL SCH ×4 (08:48→21:20)
[2018-07-28] MEDS: Cefepime HCl 2 GM in D5W 110 ML IVPB SCH ×2 (08:48→21:24)
--- NOTE | 2018-07-28 08:50 | Pulmonology Progress Note ---
Assessment/Plan Assessment/Plan 1. Malnutrition. 2. Hepatic failure. 3. Suspicion of alcohol abuse. 4. Severe hypokalemia. 5. Hyperglycemia. 6. Leukocytosis. 7. Anemia. 8. GI bleed 9. Pneumonia DISCUSSION: 1. Anemia. S/p GI bleed; S/p EGD and banding. I will monitor hemoglobin and follow recs by GI.transfuse per GI. 2. Hypokalemia, severe. Now corrected. 3. Suspicion of alcohol abuse. There is no clear history of alcohol; however, the AST/ALT ratio is suggestive of it. Mother was reporting she was consuming alcohol. Continue thiamine and folic acid. 4. Hepatic failure. This is apparently a chronic problem. Seen by Gastroenterology to assist in this matter. I will also continue lactulose. Seen by ID given high WBC Will discuss with ID regarding progressive WBC increase CXR reviewed I will follow carefully. Subjective Interval Events: Has worsening WBC Constitutional: Reports: no symptoms HEENT: Repors: no symptoms Respiratory: Reports: no symptoms Cardiovascular: Reports: no symptoms Gastrointestinal/Abdominal: Reports: no symptoms Allergies: Coded Allergies: LORAZEPAM (Verified Allergy, Unknown, 05/21/18) PENICILLINS (Verified Allergy, Unknown, 05/21/18) Objective Last 24 Hour Vital Signs Date Time Temp Pulse Resp B/P (MAP) Pulse Ox O2 Delivery O2 Flow Rate FiO2 07/28/18 06:13 96 135/74 07/28/18 04:00 96 07/28/18 04:00 Nasal Cannula 2.0 07/28/18 04:00 97.7 96 18 135/74 (94) 98 97.7 07/28/18 00:00 98.0 93 16 127/77 (94) 98 98.0 07/28/18 00:00 Nasal Cannula 2.0 07/28/18 00:00 95 07/27/18 21:35 92 119/72 07/27/18 20:00 92 07/27/18 20:00 98.5 84 18 122/75 (91) 98 98.5 07/27/18 20:00 Nasal Cannula 2.0 07/27/18 16:00 Nasal Cannula 2.0 07/27/18 16:00 87 07/27/18 16:00 98.9 86 20 119/72 (88) 97 98.9 07/27/18 13:09 101 127/80 9/15/18 12:00 98.0 101 21 127/80 (96) 96 98.0 07/27/18 12:00 101 07/27/18 12:00 Nasal Cannula 2.0 Intake and Output 07/27/18 07/28/18 19:00 07:00 Intake Total 100 ml 1820 ml Output Total 300 ml 800 ml Balance -200 ml 1020 ml Intake Oral 720 ml IV Total 100 ml 1100 ml Output Urine Total 400 ml Stool Total 300 ml 400 ml General Appearance: no acute distress HEENT: normocephalic Respiratory/Chest: chest wall non-tender, lungs clear Cardiovascular: normal peripheral pulses Abdomen: normal bowel sounds Extremities: no cyanosis Microbiology Date/Time Source Procedure Growth Status 07/26/18 17:00 Femoral Central Line Catheter Tip Culture - Preliminary NO GROWTH Resulted Laboratory Tests 07/28/18 04:30: White Blood Count 24.7*H, Red Blood Count 2.22L, Hemoglobin 7.0L, Hematocrit 21.1L, Mean Corpuscular Volume 95, Mean Corpuscular Hemoglobin 31.5H, Mean Corpuscular Hemoglobin Concent 33.1, Red Cell Distribution Width 17.9H, Platelet Count 66L, Mean Platelet Volume 10.5H, Neutrophils (%) (Auto) , Lymphocytes (%) (Auto) , Monocytes (%) (Auto) , Eosinophils (%) (Auto) , Basophils (%) (Auto) , Neutrophils % (Manual) [Pending], Lymphocytes % (Manual) [Pending], Platelet Estimate [Pending], Platelet Morphology [Pending], Prothrombin Time 17.4H, Prothromb Time International Ratio 1.7H, Sodium Level 150H, Potassium Level 3.8, Chloride Level 119H, Carbon Dioxide Level 25, Anion Gap 6, Blood Urea Nitrogen 11, Creatinine 0.7, Estimat Glomerular Filtration Rate > 60, Glucose Level 101, Calcium Level 9.0, Total Bilirubin 8.0H, Direct Bilirubin 6.1H, Aspartate Amino Transf (AST/SGOT) 257H, Alanine Aminotransferase (ALT/SGPT) 80H, Alkaline Phosphatase 148H, Ammonia 50H, Total Protein 5.8L, Albumin 1.4L, Globulin 4.4, Albumin/Globulin Ratio 0.3L Current Medications Medications (Trade) Dose Ordered Sig/Abner Route PRN Reason Start Time Stop Time Status Last Admin Dose Admin Barium Sulfate (Readi-Cat 2) 450 ml NOW PRN ORAL Radiology Procedure 07/28/18 07:30 07/30/18 07:30 Barium Sulfate (Readi-Cat 2) 450 ml NOW PRN ORAL Radiology Procedure 07/28/18 07:30 07/30/18 07:30 Cefepime HCl 2 gm/ Dextrose 110 ml @ 220 mls/hr EVERY 12 HOURS IVPB 07/23/18 12:00 07/30/18 11:59 07/27/18 21:11 Chlorhexidine Gluconate (Sierra-Hex 2%) 1 applic DAILY@2000 TOPIC 07/25/18 20:00 08/24/18 19:59 07/27/18 19:57 Dextrose/ Electrolytes 1,000 ml @ 100 mls/hr Q10H IV 07/24/18 08:30 08/23/18 08:29 07/28/18 02:36 Folic Acid (Folate) 1 mg DAILY ORAL 07/23/18 09:00 08/15/18 08:59 07/27/18 09:34 Iopamidol (Isovue-300 100ml) 100 ml NOW PRN INJ Radiology Procedure 07/28/18 07:30 07/30/18 07:29 Iopamidol (Isovue-300 100ml) 100 ml NOW PRN INJ Radiology Procedure 07/28/18 07:30 07/30/18 07:29 Lactulose (Cephulac) 30 gm FOUR TIMES A DAY ORAL 07/22/18 18:00 08/15/18 17:59 07/27/18 21:11 Nystatin (Nystatin) 5 ml QID ORAL 07/23/18 21:00 07/30/18 20:59 07/27/18 21:11 Ondansetron HCl (Zofran) 4 mg Q4H PRN IVP Nausea & Vomiting 07/22/18 13:30 08/15/18 17:29 Pantoprazole (Protonix) 40 mg EVERY 12 HOURS IVP 07/23/18 21:00 08/22/18 20:59 07/27/18 21:12 Propranolol HCl (Inderal) 10 mg Q8HR ORAL 07/27/18 14:00 08/26/18 13:59 07/28/18 06:13 Rifaximin (Xifaxan) 550 mg EVERY 12 HOURS ORAL 07/22/18 21:00 08/20/18 20:59 07/27/18 21:12 Bowen Choudhury MD Jul 28, 2018 08:50
--- NOTE | 2018-07-28 09:26 | Infectious Diseases Prog Note ---
Assessment/Plan Assessment/Plan A 1. pneumonia 2. leucocytosis 3. cirrhosis 4. hepatic encephalopathy 5. anemia 6. thrombocytopenia 7. Hypernatremia P Continue cefepime F/U CXR Subjective ROS Limited/Unobtainable: Yes Respiratory: Reports: no symptoms Gastrointestinal/Abdominal: Reports: no symptoms Genitourinary: Reports: no symptoms Allergies: Coded Allergies: LORAZEPAM (Verified Allergy, Unknown, 05/21/18) PENICILLINS (Verified Allergy, Unknown, 05/21/18) Objective Vital Signs Last 24 Hour Vital Signs Date Time Temp Pulse Resp B/P (MAP) Pulse Ox O2 Delivery O2 Flow Rate FiO2 07/28/18 08:00 Nasal Cannula 2.0 07/28/18 06:13 96 135/74 07/28/18 04:00 96 07/28/18 04:00 Nasal Cannula 2.0 07/28/18 04:00 97.7 96 18 135/74 (94) 98 97.7 07/28/18 00:00 98.0 93 16 127/77 (94) 98 98.0 07/28/18 00:00 Nasal Cannula 2.0 07/28/18 00:00 95 07/27/18 21:35 92 119/72 07/27/18 20:00 92 07/27/18 20:00 98.5 84 18 122/75 (91) 98 98.5 07/27/18 20:00 Nasal Cannula 2.0 07/27/18 16:00 Nasal Cannula 2.0 07/27/18 16:00 87 07/27/18 16:00 98.9 86 20 119/72 (88) 97 98.9 07/27/18 13:09 101 127/80 07/27/18 12:00 98.0 101 21 127/80 (96) 96 98.0 07/27/18 12:00 101 07/27/18 12:00 Nasal Cannula 2.0 Height (Feet): 5 Height (Inches): 9.00 Weight (Pounds): 250 HEENT: other - yellowish green sclera Respiratory/Chest: lungs clear Cardiovascular: normal rate, other - left arm PICC line Abdomen: soft, non tender, other - rectal tube Extremities: other - edema of legs Neurologic/Psychiatric: alert, responsive Microbiology Date/Time Source Procedure Growth Status 07/26/18 17:00 Femoral Central Line Catheter Tip Culture - Preliminary NO GROWTH Resulted Laboratory Tests Test 07/28/18 04:30 White Blood Count 24.7 K/UL (4.8-10.8) *H Red Blood Count 2.22 M/UL (4.20-5.40) L Hemoglobin 7.0 G/DL (12.0-16.0) L Hematocrit 21.1 % (37.0-47.0) L Mean Corpuscular Volume 95 FL (80-99) Mean Corpuscular Hemoglobin 31.5 PG (27.0-31.0) H Mean Corpuscular Hemoglobin Concent 33.1 G/DL (32.0-36.0) Red Cell Distribution Width 17.9 % (11.6-14.8) H Platelet Count 66 K/UL (150-450) L Mean Platelet Volume 10.5 FL (6.5-10.1) H Neutrophils (%) (Auto) % (45.0-75.0) Lymphocytes (%) (Auto) % (20.0-45.0) Monocytes (%) (Auto) % (1.0-10.0) Eosinophils (%) (Auto) % (0.0-3.0) Basophils (%) (Auto) % (0.0-2.0) Neutrophils % (Manual) Pending Lymphocytes % (Manual) Pending Platelet Estimate Pending Platelet Morphology Pending Prothrombin Time 17.4 SEC (9.30-11.50) H Prothromb Time International Ratio 1.7 (0.9-1.1) H Sodium Level 150 MMOL/L (136-145) H Potassium Level 3.8 MMOL/L (3.5-5.1) Chloride Level 119 MMOL/L (98-107) H Carbon Dioxide Level 25 MMOL/L (21-32) Anion Gap 6 mmol/L (5-15) Blood Urea Nitrogen 11 mg/dL (7-18) Creatinine 0.7 MG/DL (0.55-1.30) Estimat Glomerular Filtration Rate > 60 mL/min (>60) Glucose Level 101 MG/DL (74-106) Calcium Level 9.0 MG/DL (8.5-10.1) Total Bilirubin 8.0 MG/DL (0.2-1.0) H Direct Bilirubin 6.1 MG/DL (0.0-0.3) H Aspartate Amino Transf (AST/SGOT) 257 U/L (15-37) H Alanine Aminotransferase (ALT/SGPT) 80 U/L (12-78) H Alkaline Phosphatase 148 U/L (46-116) H Ammonia 50 umol/L (11-32) H Total Protein 5.8 G/DL (6.4-8.2) L Albumin 1.4 G/DL (3.4-5.0) L Globulin 4.4 g/dL Albumin/Globulin Ratio 0.3 (1.0-2.7) L Current Medications Medications (Trade) Dose Ordered Sig/Abner Route PRN Reason Start Time Stop Time Status Last Admin Dose Admin Barium Sulfate (Readi-Cat 2) 450 ml NOW PRN ORAL Radiology Procedure 07/28/18 07:30 07/30/18 07:30 Barium Sulfate (Readi-Cat 2) 450 ml NOW PRN ORAL Radiology Procedure 07/28/18 07:30 07/30/18 07:30 Cefepime HCl 2 gm/ Dextrose 110 ml @ 220 mls/hr EVERY 12 HOURS IVPB 07/23/18 12:00 07/30/18 11:59 07/28/18 08:48 Chlorhexidine Gluconate (Sierra-Hex 2%) 1 applic DAILY@2000 TOPIC 07/25/18 20:00 08/24/18 19:59 07/27/18 19:57 Dextrose/ Electrolytes 1,000 ml @ 100 mls/hr Q10H IV 07/24/18 08:30 08/23/18 08:29 07/28/18 02:36 Folic Acid (Folate) 1 mg DAILY ORAL 07/23/18 09:00 08/15/18 08:59 07/27/18 09:34 Iopamidol (Isovue-300 100ml) 100 ml NOW PRN INJ Radiology Procedure 07/28/18 07:30 07/30/18 07:29 Iopamidol (Isovue-300 100ml) 100 ml NOW PRN INJ Radiology Procedure 07/28/18 07:30 07/30/18 07:29 Lactulose (Cephulac) 30 gm FOUR TIMES A DAY ORAL 07/22/18 18:00 08/15/18 17:59 07/27/18 21:11 Nystatin (Nystatin) 5 ml QID ORAL 07/23/18 21:00 07/30/18 20:59 07/28/18 08:48 Ondansetron HCl (Zofran) 4 mg Q4H PRN IVP Nausea & Vomiting 07/22/18 13:30 08/15/18 17:29 Pantoprazole (Protonix) 40 mg EVERY 12 HOURS IVP 07/23/18 21:00 08/22/18 20:59 07/28/18 08:48 Propranolol HCl (Inderal) 10 mg Q8HR ORAL 07/27/18 14:00 08/26/18 13:59 07/28/18 06:13 Rifaximin (Xifaxan) 550 mg EVERY 12 HOURS ORAL 07/22/18 21:00 08/20/18 20:59 07/27/18 21:12 Damian Ly MD Jul 28, 2018 09:26
[2018-07-28 12:00] VITALS: BP 115/63
--- NOTE | 2018-07-28 15:19 | Diagnostic Imaging Report ---
EXAM: CT Chest With Intravenous Contrast CLINICAL HISTORY: ABD PAIN TECHNIQUE: Axial computed tomography images of the chest with intravenous contrast. CTDI is 20.78 mGy and DLP is 474 mGy-cm. One or more of the following dose reduction techniques were used: automated exposure control, adjustment of the mA and/or kV according to patient size, use of iterative reconstruction technique. COMPARISON: No relevant prior studies available. FINDINGS: Lungs: Diffuse patchy perihilar opacities. Pleural space: Unremarkable. No pneumothorax. No significant effusion. Heart: Cardiomegaly. No significant pericardial effusion. Bones/joints: Mild right convex thoracic scoliosis centered at T6. No acute fracture. No dislocation. Soft tissues: Unremarkable. Vasculature: Unremarkable. No thoracic aortic aneurysm. Lymph nodes: Unremarkable. No enlarged lymph nodes. Tubes, lines and devices: Right arm PICC with the tip in the right atrium. IMPRESSION: 1. Diffuse patchy perihilar opacities, which may represent pulmonary edema versus pneumonia. 2. Cardiomegaly. EXAM: CT Abdomen and Pelvis With Intravenous Contrast CLINICAL HISTORY: ABD PAIN TECHNIQUE: Axial computed tomography images of the abdomen and pelvis with intravenous contrast. CTDI is 18.69 mGy and DLP is 1048 mGy-cm. One or more of the following dose reduction techniques were used: automated exposure control, adjustment of the mA and/or kV according to patient size, use of iterative reconstruction technique. COMPARISON: No relevant prior studies available. FINDINGS: Lung bases: Unremarkable. No mass. No consolidation. ABDOMEN: Liver: Cirrhotic hepatic contour. Gallbladder and bile ducts: Normal seen and may be contracted or surgically absent. No calcified stones. No ductal dilation. Pancreas: Unremarkable. No mass. No ductal dilation. Spleen: Splenomegaly. Adrenals: Unremarkable. No mass. Kidneys and ureters: Unremarkable. No solid mass. No hydronephrosis. Stomach and bowel: Unremarkable. No obstruction. No mucosal thickening. PELVIS: Appendix: No findings to suggest acute appendicitis. Bladder: Unremarkable. No mass. Reproductive: Uterus and ovaries appear unremarkable. ABDOMEN and PELVIS: Intraperitoneal space: Moderate volume abdominal pelvic ascites. No free air. Bones/joints: No acute fracture. No dislocation. Soft tissues: Diffuse subcutaneous soft tissue edema/anasarca. Vasculature: Unremarkable. No abdominal aortic aneurysm. Lymph nodes: Unremarkable. No enlarged lymph nodes. IMPRESSION: 1. Cirrhotic hepatic contour. 2. Moderate volume abdominal and pelvic ascites. 3. Splenomegaly. 4. Diffuse subcutaneous soft tissue edema/anasarca.
[2018-07-28 16:00] VITALS: BP 112/70
[2018-07-28 20:00] VITALS: BP 111/63
[2018-07-28] MEDS: Dyna-Hex 2% Top Sol 2oz TOPIC SCH (20:06)
[2018-07-29] VITALS: BP 121/61
[2018-07-29 04:00] VITALS: BP 114/64
[2018-07-29 05:33] LABS: HEMOGLOBIN 7.5 G/DL (12.0-16.0); MEAN CORPUSCULAR VOLUME 95 FL (80-99); PLATELET COUNT 68 K/UL (150-450); RED BLOOD COUNT 2.33 M/UL (4.20-5.40); RED CELL DISTRIBUTION WIDTH 18.4 % (11.6-14.8)
[2018-07-29 05:37] LABS: WHITE BLOOD COUNT 23.1 K/UL (4.8-10.8)
[2018-07-29 05:38] LABS: INR 1.7 (0.9-1.1)
[2018-07-29 05:47] LABS: ANION GAP 8 mmol/L (5-15); BLOOD UREA NITROGEN 10 mg/dL (7-18); CALCIUM 8.7 MG/DL (8.5-10.1); CARBON DIOXIDE 24 MMOL/L (21-32); CHLORIDE 116 MMOL/L (98-107); CREATININE 0.7 MG/DL (0.55-1.30); POTASSIUM 3.9 MMOL/L (3.5-5.1); SODIUM 148 MMOL/L (136-145)
[2018-07-29 05:52] LABS: AMMONIA 77 umol/L (11-32)
[2018-07-29 06:04] LABS: ALANINE AMINOTRANSFERASE 83 U/L (12-78); ALBUMIN 1.2 G/DL (3.4-5.0); ALBUMIN/GLOBULIN RATIO 0.3 (1.0-2.7); ALKALINE PHOSPHATASE 157 U/L (46-116); ANION GAP 9 mmol/L (5-15); ASPARTATE AMINO TRANSFERASE 267 U/L (15-37); BILIRUBIN,TOTAL 7.2 MG/DL (0.2-1.0); BLOOD UREA NITROGEN 10 mg/dL (7-18); CALCIUM 8.7 MG/DL (8.5-10.1); CARBON DIOXIDE 23 MMOL/L (21-32); CHLORIDE 116 MMOL/L (98-107); CREATININE 0.7 MG/DL (0.55-1.30); POTASSIUM 3.9 MMOL/L (3.5-5.1); SODIUM 148 MMOL/L (136-145)
[2018-07-29 06:14] LABS: BILIRUBIN,DIRECT 5.3 MG/DL (0.0-0.3)
[2018-07-29] MEDS: Propranolol 10mg tab ORAL SCH ×3 (06:18→21:08)
[2018-07-29 08:00] VITALS: BP 110/64
--- NOTE | 2018-07-29 08:36 | Pulmonology Progress Note ---
Assessment/Plan Assessment/Plan 1. Malnutrition. 2. Hepatic failure. Slowly improving; T.Tye better. 3. Suspicion of alcohol abuse. AST/ALT ratio very suggestive 4. Severe hypokalemia. Corrected. 5. Hyperglycemia. Resolved. 6. Leukocytosis. persistent but no clear source. 7. Anemia. 8. GI bleed 9. Pneumonia DISCUSSION: 1. Anemia. S/p GI bleed; S/p EGD and banding. I will monitor hemoglobin and follow recs by GI. Transfuse per GI. 2. Hypokalemia, severe. Now corrected. 3. Suspicion of alcohol abuse. There is no clear history of alcohol; however, the AST/ALT ratio is suggestive of it. Mother was reporting she was consuming alcohol. Continue thiamine and folic acid. 4. Hepatic failure. This is apparently a chronic problem. Seen by Gastroenterology to assist in this matter. I will also continue lactulose. WIll decrease Lactulose given diarrhea. Continue Rifaximin. Seen by ID given high WBC Will discuss with ID regarding progressive WBC increase CXR reviewed I will follow carefully. Dc planning to SNF vs home. Subjective Interval Events: More awake; conversant Constitutional: Reports: no symptoms HEENT: Repors: no symptoms Respiratory: Reports: no symptoms Cardiovascular: Reports: no symptoms Gastrointestinal/Abdominal: Reports: no symptoms Genitourinary: Reports: no symptoms Allergies: Coded Allergies: LORAZEPAM (Verified Allergy, Unknown, 05/21/18) PENICILLINS (Verified Allergy, Unknown, 05/21/18) Objective Last 24 Hour Vital Signs Date Time Temp Pulse Resp B/P (MAP) Pulse Ox O2 Delivery O2 Flow Rate FiO2 07/29/18 08:13 Room Air 07/29/18 08:00 97.7 72 20 110/64 (79) 100 97.7 07/29/18 06:18 95 120/64 07/29/18 04:00 98.3 92 21 114/64 (81) 99 98.3 07/29/18 04:00 Nasal Cannula 2.0 07/29/18 04:00 92 07/29/18 00:00 98.1 96 21 121/61 (81) 99 98.1 07/29/18 00:00 Nasal Cannula 2.0 07/29/18 00:00 95 07/28/18 22:00 89 110/60 07/28/18 20:00 97.5 89 21 111/63 (79) 88 97.5 07/28/18 20:00 91 07/28/18 20:00 Nasal Cannula 2.0 07/28/18 16:00 91 07/28/18 16:00 Nasal Cannula 2.0 07/28/18 16:00 98.4 90 21 112/70 (84) 100 98.4 07/28/18 13:06 93 113/74 07/28/18 12:00 95 07/28/18 12:00 Nasal Cannula 2.0 07/28/18 12:00 98.6 96 20 115/63 (80) 96 98.6 07/28/18 09:30 93 Intake and Output 07/28/18 07/29/18 19:00 07:00 Intake Total 1320 ml 230 ml Output Total 1000 ml 800 ml Balance 320 ml -570 ml Intake Oral 350 ml 120 ml IV Total 720 ml 110 ml Blood Product 250 ml Output Urine Total 700 ml 600 ml Stool Total 300 ml 200 ml General Appearance: no acute distress HEENT: normocephalic Respiratory/Chest: chest wall non-tender, lungs clear Cardiovascular: normal peripheral pulses, normal rate Abdomen: normal bowel sounds Microbiology Date/Time Source Procedure Growth Status 07/26/18 17:00 Femoral Central Line Catheter Tip Culture - Preliminary NO GROWTH Resulted Laboratory Tests 07/29/18 03:30: White Blood Count 23.1*H, Red Blood Count 2.33L, Hemoglobin 7.5L, Hematocrit 22.0L, Mean Corpuscular Volume 95, Mean Corpuscular Hemoglobin 32.2H, Mean Corpuscular Hemoglobin Concent 34.0, Red Cell Distribution Width 18.4H, Platelet Count 68L, Mean Platelet Volume 11.5H, Neutrophils (%) (Auto) , Lymphocytes (%) (Auto) , Monocytes (%) (Auto) , Eosinophils (%) (Auto) , Basophils (%) (Auto) , Neutrophils % (Manual) [Pending], Lymphocytes % (Manual) [Pending], Platelet Estimate [Pending], Platelet Morphology [Pending], Prothrombin Time 17.0H, Prothromb Time International Ratio 1.7H, Sodium Level 148H, Potassium Level 3.9, Chloride Level 116H, Carbon Dioxide Level 24, Anion Gap 8, Blood Urea Nitrogen 10, Creatinine 0.7, Estimat Glomerular Filtration Rate > 60, Glucose Level 96, Calcium Level 8.7, Total Bilirubin 7.2H, Direct Bilirubin 5.3H, Aspartate Amino Transf (AST/SGOT) 267H, Alanine Aminotransferase (ALT/SGPT) 83H, Alkaline Phosphatase 157H, Ammonia 77H, Total Protein 5.8L, Albumin 1.2L, Globulin 4.6, Albumin/Globulin Ratio 0.3L Current Medications Medications (Trade) Dose Ordered Sig/Abner Route PRN Reason Start Time Stop Time Status Last Admin Dose Admin Barium Sulfate (Readi-Cat 2) 450 ml NOW PRN ORAL Radiology Procedure 07/28/18 07:30 07/30/18 07:30 Barium Sulfate (Readi-Cat 2) 450 ml NOW PRN ORAL Radiology Procedure 07/28/18 07:30 07/30/18 07:30 Cefepime HCl 2 gm/ Dextrose 110 ml @ 220 mls/hr EVERY 12 HOURS IVPB 07/23/18 12:00 07/30/18 11:59 07/28/18 21:24 Chlorhexidine Gluconate (Sierra-Hex 2%) 1 applic DAILY@2000 TOPIC 07/25/18 20:00 08/24/18 19:59 07/28/18 20:06 Folic Acid (Folate) 1 mg DAILY ORAL 07/23/18 09:00 08/15/18 08:59 07/27/18 09:34 Iopamidol (Isovue-300 100ml) 100 ml NOW PRN INJ Radiology Procedure 07/28/18 07:30 07/30/18 07:29 Iopamidol (Isovue-300 100ml) 100 ml NOW PRN INJ Radiology Procedure 07/28/18 07:30 07/30/18 07:29 Lactulose (Cephulac) 30 gm FOUR TIMES A DAY ORAL 07/22/18 18:00 08/15/18 17:59 07/28/18 21:20 Nystatin (Nystatin) 5 ml QID ORAL 07/23/18 21:00 07/30/18 20:59 07/28/18 21:20 Ondansetron HCl (Zofran) 4 mg Q4H PRN IVP Nausea & Vomiting 07/22/18 13:30 08/15/18 17:29 Pantoprazole (Protonix) 40 mg EVERY 12 HOURS IVP 9/11/18 21:00 08/22/18 20:59 07/28/18 21:19 Propranolol HCl (Inderal) 10 mg Q8HR ORAL 07/27/18 14:00 08/26/18 13:59 07/29/18 06:18 Rifaximin (Xifaxan) 550 mg EVERY 12 HOURS ORAL 07/22/18 21:00 08/20/18 20:59 07/28/18 21:20 Bowen Choudhury MD Jul 29, 2018 08:36
--- NOTE | 2018-07-29 08:44 | Nephrology Progress Note ---
Assessment/Plan Assessment/Plan A/P 1) Hypok+/Mg/Phos- corrected - will sign off today. Plz call back if circumstances 2) Tranaminitis/liver failure/GI Bleed- per GI mgmt 3) Alcohol Abuse/Dependancy- thiamine and folate 4) GI Bleed- Mgmt per GI. Anemia 5) Hypernatremia- resolved. IVFs off 6) Leukocytosis- per ID Subjective Date patient seen: Jul 29, 2018 Time patient seen: 08:42 ROS Limited/Unobtainable: No Constitutional: Reports: weakness Allergies: Coded Allergies: LORAZEPAM (Verified Allergy, Unknown, 05/21/18) PENICILLINS (Verified Allergy, Unknown, 05/21/18) All Systems: reviewed and negative except above Subjective Patient improving and more awake. Very conversant today Objective Last 24 Hour Vital Signs Date Time Temp Pulse Resp B/P (MAP) Pulse Ox O2 Delivery O2 Flow Rate FiO2 07/29/18 08:13 Room Air 07/29/18 08:00 97.7 72 20 110/64 (79) 100 97.7 07/29/18 06:18 95 120/64 07/29/18 04:00 98.3 92 21 114/64 (81) 99 98.3 07/29/18 04:00 Nasal Cannula 2.0 07/29/18 04:00 92 07/29/18 00:00 98.1 96 21 121/61 (81) 99 98.1 07/29/18 00:00 Nasal Cannula 2.0 07/29/18 00:00 95 07/28/18 22:00 89 110/60 07/28/18 20:00 97.5 89 21 111/63 (79) 88 97.5 07/28/18 20:00 91 07/28/18 20:00 Nasal Cannula 2.0 07/28/18 16:00 91 07/28/18 16:00 Nasal Cannula 2.0 07/28/18 16:00 98.4 90 21 112/70 (84) 100 98.4 07/28/18 13:06 93 113/74 07/28/18 12:00 95 07/28/18 12:00 Nasal Cannula 2.0 07/28/18 12:00 98.6 96 20 115/63 (80) 96 98.6 07/28/18 09:30 93 Intake and Output 07/28/18 07/29/18 19:00 07:00 Intake Total 1320 ml 230 ml Output Total 1000 ml 800 ml Balance 320 ml -570 ml Intake Oral 350 ml 120 ml IV Total 720 ml 110 ml Blood Product 250 ml Output Urine Total 700 ml 600 ml Stool Total 300 ml 200 ml Laboratory Tests 07/29/18 03:30: White Blood Count 23.1*H, Red Blood Count 2.33L, Hemoglobin 7.5L, Hematocrit 22.0L, Mean Corpuscular Volume 95, Mean Corpuscular Hemoglobin 32.2H, Mean Corpuscular Hemoglobin Concent 34.0, Red Cell Distribution Width 18.4H, Platelet Count 68L, Mean Platelet Volume 11.5H, Neutrophils (%) (Auto) , Lymphocytes (%) (Auto) , Monocytes (%) (Auto) , Eosinophils (%) (Auto) , Basophils (%) (Auto) , Neutrophils % (Manual) [Pending], Lymphocytes % (Manual) [Pending], Platelet Estimate [Pending], Platelet Morphology [Pending], Prothrombin Time 17.0H, Prothromb Time International Ratio 1.7H, Sodium Level 148H, Potassium Level 3.9, Chloride Level 116H, Carbon Dioxide Level 24, Anion Gap 8, Blood Urea Nitrogen 10, Creatinine 0.7, Estimat Glomerular Filtration Rate > 60, Glucose Level 96, Calcium Level 8.7, Total Bilirubin 7.2H, Direct Bilirubin 5.3H, Aspartate Amino Transf (AST/SGOT) 267H, Alanine Aminotransferase (ALT/SGPT) 83H, Alkaline Phosphatase 157H, Ammonia 77H, Total Protein 5.8L, Albumin 1.2L, Globulin 4.6, Albumin/Globulin Ratio 0.3L Height (Feet): 5 Height (Inches): 9.00 Weight (Pounds): 255 General Appearance: WD/WN, no apparent distress EENT: PERRL/EOMI Neck: normal alignment, supple Cardiovascular: normal rate, regular rhythm Respiratory/Chest: lungs clear, normal breath sounds Abdomen: distended, guarding Edema: 1+ Arm (L), 1+ Arm (R), 1+ Leg (L), 1+ Leg (R), 1+ Pedal (L), 1+ Pedal ( R), 1+ Generalized Amos Pinon MD Jul 29, 2018 08:44
[2018-07-29] MEDS: Cefepime HCl 2 GM in D5W 110 ML IVPB SCH ×2 (09:46→20:46)
[2018-07-29] MEDS: Nystatin Susp 500,000 units/5ml ORAL SCH ×4 (09:47→20:47)
[2018-07-29] MEDS: Pantoprazole Inj IVP SCH (09:47)
[2018-07-29] MEDS: Lactulose 20gm/30ml UDC ORAL SCH ×3 (09:54→17:22)
--- NOTE | 2018-07-29 10:25 | Infectious Diseases Prog Note ---
Assessment/Plan Assessment/Plan antibiotics : cefepime, rifaximin A 1. pneumonia 2. leucocytosis 3. cirrhosis 4. hepatic encephalopathy 5. anemia 6. 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 r/o c.diff colitis P 1. continue cefepime 2. stool for c.diff 3. start po vancomycin 4. will follow up cultures Subjective Constitutional: Denies: fever, chills Respiratory: Denies: shortness of breath, dry cough Gastrointestinal/Abdominal: Reports: diarrhea; Denies: nausea, vomiting Musculoskeletal: Denies: pain Allergies: Coded Allergies: LORAZEPAM (Verified Allergy, Unknown, 05/21/18) PENICILLINS (Verified Allergy, Unknown, 05/21/18) Objective Vital Signs Last 24 Hour Vital Signs Date Time Temp Pulse Resp B/P (MAP) Pulse Ox O2 Delivery O2 Flow Rate FiO2 07/29/18 08:13 Room Air 07/29/18 08:00 97.7 72 20 110/64 (79) 100 97.7 07/29/18 06:18 95 120/64 07/29/18 04:00 98.3 92 21 114/64 (81) 99 98.3 07/29/18 04:00 Nasal Cannula 2.0 07/29/18 04:00 92 07/29/18 00:00 98.1 96 21 121/61 (81) 99 98.1 07/29/18 00:00 Nasal Cannula 2.0 07/29/18 00:00 95 07/28/18 22:00 89 110/60 07/28/18 20:00 97.5 89 21 111/63 (79) 88 97.5 07/28/18 20:00 91 07/28/18 20:00 Nasal Cannula 2.0 07/28/18 16:00 91 07/28/18 16:00 Nasal Cannula 2.0 07/28/18 16:00 98.4 90 21 112/70 (84) 100 98.4 07/28/18 13:06 93 113/74 07/28/18 12:00 95 07/28/18 12:00 Nasal Cannula 2.0 07/28/18 12:00 98.6 96 20 115/63 (80) 96 98.6 Height (Feet): 5 Height (Inches): 9.00 Weight (Pounds): 255 HEENT: other - sclera icteric Respiratory/Chest: lungs clear Cardiovascular: normal rate, regular rhythm, no gallop/murmur Abdomen: soft, non tender Extremities: other - + edema Microbiology Date/Time Source Procedure Growth Status 07/26/18 17:00 Femoral Central Line Catheter Tip Culture - Preliminary NO GROWTH AFTER 24 HOURS Resulted Laboratory Tests Test 07/29/18 03:30 White Blood Count 23.1 K/UL (4.8-10.8) *H Red Blood Count 2.33 M/UL (4.20-5.40) L Hemoglobin 7.5 G/DL (12.0-16.0) L Hematocrit 22.0 % (37.0-47.0) L Mean Corpuscular Volume 95 FL (80-99) Mean Corpuscular Hemoglobin 32.2 PG (27.0-31.0) H Mean Corpuscular Hemoglobin Concent 34.0 G/DL (32.0-36.0) Red Cell Distribution Width 18.4 % (11.6-14.8) H Platelet Count 68 K/UL (150-450) L Mean Platelet Volume 11.5 FL (6.5-10.1) H Neutrophils (%) (Auto) % (45.0-75.0) Lymphocytes (%) (Auto) % (20.0-45.0) Monocytes (%) (Auto) % (1.0-10.0) Eosinophils (%) (Auto) % (0.0-3.0) Basophils (%) (Auto) % (0.0-2.0) Neutrophils % (Manual) Pending Lymphocytes % (Manual) Pending Platelet Estimate Pending Platelet Morphology Pending Prothrombin Time 17.0 SEC (9.30-11.50) H Prothromb Time International Ratio 1.7 (0.9-1.1) H Sodium Level 148 MMOL/L (136-145) H Potassium Level 3.9 MMOL/L (3.5-5.1) Chloride Level 116 MMOL/L (98-107) H Carbon Dioxide Level 24 MMOL/L (21-32) Anion Gap 8 mmol/L (5-15) Blood Urea Nitrogen 10 mg/dL (7-18) Creatinine 0.7 MG/DL (0.55-1.30) Estimat Glomerular Filtration Rate > 60 mL/min (>60) Glucose Level 96 MG/DL (74-106) Calcium Level 8.7 MG/DL (8.5-10.1) Total Bilirubin 7.2 MG/DL (0.2-1.0) H Direct Bilirubin 5.3 MG/DL (0.0-0.3) H Aspartate Amino Transf (AST/SGOT) 267 U/L (15-37) H Alanine Aminotransferase (ALT/SGPT) 83 U/L (12-78) H Alkaline Phosphatase 157 U/L (46-116) H Ammonia 77 umol/L (11-32) H Total Protein 5.8 G/DL (6.4-8.2) L Albumin 1.2 G/DL (3.4-5.0) L Globulin 4.6 g/dL Albumin/Globulin Ratio 0.3 (1.0-2.7) L Current Medications Medications (Trade) Dose Ordered Sig/Abner Route PRN Reason Start Time Stop Time Status Last Admin Dose Admin Barium Sulfate (Readi-Cat 2) 450 ml NOW PRN ORAL Radiology Procedure 07/28/18 07:30 07/30/18 07:30 Barium Sulfate (Readi-Cat 2) 450 ml NOW PRN ORAL Radiology Procedure 07/28/18 07:30 07/30/18 07:30 Cefepime HCl 2 gm/ Dextrose 110 ml @ 220 mls/hr EVERY 12 HOURS IVPB 07/23/18 12:00 07/30/18 11:59 07/29/18 09:46 Chlorhexidine Gluconate (Sierra-Hex 2%) 1 applic DAILY@2000 TOPIC 07/25/18 20:00 08/24/18 19:59 07/28/18 20:06 Folic Acid (Folate) 1 mg DAILY ORAL 07/23/18 09:00 08/15/18 08:59 07/29/18 09:47 Iopamidol (Isovue-300 100ml) 100 ml NOW PRN INJ Radiology Procedure 07/28/18 07:30 07/30/18 07:29 Iopamidol (Isovue-300 100ml) 100 ml NOW PRN INJ Radiology Procedure 07/28/18 07:30 07/30/18 07:29 Lactulose (Cephulac) 10 gm THREE TIMES A DAY ORAL 07/29/18 09:00 08/28/18 08:59 07/29/18 09:54 Nystatin (Nystatin) 5 ml QID ORAL 07/23/18 21:00 07/30/18 20:59 07/29/18 09:47 Ondansetron HCl (Zofran) 4 mg Q4H PRN IVP Nausea & Vomiting 07/22/18 13:30 08/15/18 17:29 Pantoprazole (Protonix) 40 mg EVERY 12 HOURS IVP 07/23/18 21:00 08/22/18 20:59 07/29/18 09:47 Propranolol HCl (Inderal) 10 mg Q8HR ORAL 07/27/18 14:00 08/26/18 13:59 07/29/18 06:18 Rifaximin (Xifaxan) 550 mg EVERY 12 HOURS ORAL 07/22/18 21:00 08/20/18 20:59 07/29/18 09:47 Vancomycin HCl (Firvanq) 125 mg FOUR TIMES A DAY ORAL 07/29/18 10:00 08/05/18 09:59 BENITO WATT Jul 29, 2018 10:25
[2018-07-29] MEDS: Vancomycin oral 125mg/2.5ml ORAL SCH ×4 (10:35→20:47)
--- NOTE | 2018-07-29 10:58 | GI Progress Note ---
Assessment/Plan Problems: (1) Liver failure ICD Codes: K72.90 - Hepatic failure, unspecified without coma SNOMED: 40363029 Qualifiers: Qualified Codes: K72.01 - Acute and subacute hepatic failure with coma (2) Altered level of consciousness ICD Codes: R40.4 - Transient alteration of awareness SNOMED: 3605319 (3) GI bleed ICD Codes: K92.2 - Gastrointestinal hemorrhage, unspecified SNOMED: 00466795 Qualifiers: Qualified Codes: K92.2 - Gastrointestinal hemorrhage, unspecified (4) Hypokalemia ICD Codes: E87.6 - Hypokalemia SNOMED: 13769680 (5) Hepatic encephalopathy ICD Codes: K72.90 - Hepatic failure, unspecified without coma SNOMED: 75620895 (6) Anemia ICD Codes: D64.9 - Anemia, unspecified SNOMED: 555189527 Qualifiers: Qualified Codes: D64.9 - Anemia, unspecified Status: progressing Status Narrative Discussed with Dr. Rodriguez. Assessment/Plan Assessment - EtOH cirrhosis - Esophageal varicies - UGIB - s/p EGD and EBL - Anemia Recommendations - paracentesis >> r/o SBP>> fu - DO NOT reinsert NGT, can cause rebleed. - diet per ST - ppi BID - monitor labs - replace lytes - propanolol 10 mg TID -repeat labs in am The patient was seen and examined at bedside and all new and available data was reviewed in the patients chart. I agree with the above findings, impression and plan. (Patient seen earlier today. Signature stamp does not reflect patient encounter time.). - Christopher Rodriguez MD Subjective Gastrointestinal/Abdominal: Reports: no symptoms Objective Last 24 Hour Vital Signs Date Time Temp Pulse Resp B/P (MAP) Pulse Ox O2 Delivery O2 Flow Rate FiO2 07/29/18 08:13 Room Air 07/29/18 08:00 97.7 72 20 110/64 (79) 100 97.7 07/29/18 08:00 78 07/29/18 06:18 95 120/64 07/29/18 04:00 98.3 92 21 114/64 (81) 99 98.3 07/29/18 04:00 Nasal Cannula 2.0 07/29/18 04:00 92 07/29/18 00:00 98.1 96 21 121/61 (81) 99 98.1 07/29/18 00:00 Nasal Cannula 2.0 07/29/18 00:00 95 07/28/18 22:00 89 110/60 07/28/18 20:00 97.5 89 21 111/63 (79) 88 97.5 07/28/18 20:00 91 07/28/18 20:00 Nasal Cannula 2.0 07/28/18 16:00 91 07/28/18 16:00 Nasal Cannula 2.0 07/28/18 16:00 98.4 90 21 112/70 (84) 100 98.4 07/28/18 13:06 93 113/74 07/28/18 12:00 95 07/28/18 12:00 Nasal Cannula 2.0 07/28/18 12:00 98.6 96 20 115/63 (80) 96 98.6 Intake and Output 07/28/18 07/29/18 19:00 07:00 Intake Total 1320 ml 230 ml Output Total 1000 ml 800 ml Balance 320 ml -570 ml Intake Oral 350 ml 120 ml IV Total 720 ml 110 ml Blood Product 250 ml Output Urine Total 700 ml 600 ml Stool Total 300 ml 200 ml Laboratory Tests Test 07/29/18 03:30 White Blood Count 23.1 K/UL (4.8-10.8) *H Red Blood Count 2.33 M/UL (4.20-5.40) L Hemoglobin 7.5 G/DL (12.0-16.0) L Hematocrit 22.0 % (37.0-47.0) L Mean Corpuscular Volume 95 FL (80-99) Mean Corpuscular Hemoglobin 32.2 PG (27.0-31.0) H Mean Corpuscular Hemoglobin Concent 34.0 G/DL (32.0-36.0) Red Cell Distribution Width 18.4 % (11.6-14.8) H Platelet Count 68 K/UL (150-450) L Mean Platelet Volume 11.5 FL (6.5-10.1) H Neutrophils (%) (Auto) % (45.0-75.0) Lymphocytes (%) (Auto) % (20.0-45.0) Monocytes (%) (Auto) % (1.0-10.0) Eosinophils (%) (Auto) % (0.0-3.0) Basophils (%) (Auto) % (0.0-2.0) Neutrophils % (Manual) Pending Lymphocytes % (Manual) Pending Platelet Estimate Pending Platelet Morphology Pending Prothrombin Time 17.0 SEC (9.30-11.50) H Prothromb Time International Ratio 1.7 (0.9-1.1) H Sodium Level 148 MMOL/L (136-145) H Potassium Level 3.9 MMOL/L (3.5-5.1) Chloride Level 116 MMOL/L (98-107) H Carbon Dioxide Level 24 MMOL/L (21-32) Anion Gap 8 mmol/L (5-15) Blood Urea Nitrogen 10 mg/dL (7-18) Creatinine 0.7 MG/DL (0.55-1.30) Estimat Glomerular Filtration Rate > 60 mL/min (>60) Glucose Level 96 MG/DL (74-106) Calcium Level 8.7 MG/DL (8.5-10.1) Total Bilirubin 7.2 MG/DL (0.2-1.0) H Direct Bilirubin 5.3 MG/DL (0.0-0.3) H Aspartate Amino Transf (AST/SGOT) 267 U/L (15-37) H Alanine Aminotransferase (ALT/SGPT) 83 U/L (12-78) H Alkaline Phosphatase 157 U/L (46-116) H Ammonia 77 umol/L (11-32) H Total Protein 5.8 G/DL (6.4-8.2) L Albumin 1.2 G/DL (3.4-5.0) L Globulin 4.6 g/dL Albumin/Globulin Ratio 0.3 (1.0-2.7) L Height (Feet): 5 Height (Inches): 9.00 Weight (Pounds): 255 General Appearance: WD/WN, no apparent distress, alert Cardiovascular: normal rate Respiratory/Chest: normal breath sounds, no respiratory distress Abdominal Exam: normal bowel sounds, non tender, soft Extremities: normal range of motion, non-tender Objective generalized jaundice Markus Lebron NP Jul 29, 2018 10:58
[2018-07-29 11:55] VITALS: BP 109/61
[2018-07-29 16:10] VITALS: BP 110/67
[2018-07-29] MEDS ORDERED: NS 500ML ONE (17:50)
[2018-07-29] MEDS ORDERED: Tubing IV Secondary IV ONE (17:50)
[2018-07-29] MEDS ORDERED: Tubing Blood Filter IV ONE (17:50)
[2018-07-29 20:00] VITALS: BP 110/70
[2018-07-29] MEDS: Dyna-Hex 2% Top Sol 2oz TOPIC SCH (20:47)
[2018-07-29] MEDS ORDERED: Cefepime HCl 2 GM in D5W 110 ML IVPB SCH (21:00)
[2018-07-30] VITALS: BP 105/63
[2018-07-30 04:00] VITALS: BP 103/61
[2018-07-30] MEDS: Propranolol 10mg tab ORAL SCH ×3 (06:00→22:00)
[2018-07-30 07:23] LABS: HEMATOCRIT 22.1 % (37.0-47.0); HEMOGLOBIN 7.3 G/DL (12.0-16.0); MEAN CORPUSCULAR VOLUME 96 FL (80-99); PLATELET COUNT 78 K/UL (150-450); WHITE BLOOD COUNT 19.2 K/UL (4.8-10.8)
[2018-07-30 07:32] LABS: ANION GAP 6 mmol/L (5-15); BLOOD UREA NITROGEN 11 mg/dL (7-18); CALCIUM 8.7 MG/DL (8.5-10.1); CARBON DIOXIDE 24 MMOL/L (21-32); CHLORIDE 112 MMOL/L (98-107); CREATININE 0.7 MG/DL (0.55-1.30); POTASSIUM 3.8 MMOL/L (3.5-5.1); SODIUM 142 MMOL/L (136-145)
[2018-07-30 07:47] LABS: ALANINE AMINOTRANSFERASE 87 U/L (12-78); ALBUMIN 1.3 G/DL (3.4-5.0); ALKALINE PHOSPHATASE 164 U/L (46-116); ASPARTATE AMINO TRANSFERASE 281 U/L (15-37); BILIRUBIN,DIRECT 4.7 MG/DL (0.0-0.3); BILIRUBIN,TOTAL 5.9 MG/DL (0.2-1.0)
[2018-07-30 08:00] VITALS: BP 109/67
[2018-07-30] MEDS: Nystatin Susp 500,000 units/5ml ORAL SCH ×3 (08:46→17:05)
[2018-07-30] MEDS: Cefepime HCl 2 GM in D5W 110 ML IVPB SCH ×2 (08:46→22:48)
[2018-07-30] MEDS: Lactulose 20gm/30ml UDC ORAL SCH ×3 (08:47→17:05)
[2018-07-30] MEDS: Vancomycin oral 125mg/2.5ml ORAL SCH ×4 (08:47→22:42)
--- NOTE | 2018-07-30 09:04 | Pulmonology Progress Note ---
Assessment/Plan Assessment/Plan 1. Malnutrition. 2. Hepatic failure. Slowly improving; T.Tye better. 3. Suspicion of alcohol abuse. AST/ALT ratio very suggestive 4. Severe hypokalemia. Corrected. 5. Hyperglycemia. Resolved. 6. Leukocytosis. persistent but no clear source. 7. Anemia. 8. GI bleed 9. Pneumonia 10. Diarrhea; I have decreased lactulose; on PO Vanco as well DISCUSSION: 1. Anemia. S/p GI bleed; S/p EGD and banding. I will monitor hemoglobin and follow recs by GI. Transfuse per GI. 2. Hypokalemia, severe. Now corrected. 3. Suspicion of alcohol abuse. There is no clear history of alcohol; however, the AST/ALT ratio is suggestive of it. Mother was reporting she was consuming alcohol. Continue thiamine and folic acid. 4. Hepatic failure. This is apparently a chronic problem. Seen by Gastroenterology to assist in this matter. I will also continue lactulose. WIll decrease Lactulose given diarrhea. Continue Rifaximin. Seen by ID given high WBC Discuused with ID PO Vanco added CXR reviewed I will follow carefully. Dc planning to SNF vs home. Subjective Interval Events: WBC better; on PO Vanco. Feeling better Constitutional: Reports: no symptoms HEENT: Repors: no symptoms Respiratory: Reports: no symptoms Cardiovascular: Reports: no symptoms Gastrointestinal/Abdominal: Reports: diarrhea Genitourinary: Reports: no symptoms Allergies: Coded Allergies: LORAZEPAM (Verified Allergy, Unknown, 05/21/18) PENICILLINS (Verified Allergy, Unknown, 05/21/18) Objective Last 24 Hour Vital Signs Date Time Temp Pulse Resp B/P (MAP) Pulse Ox O2 Delivery O2 Flow Rate FiO2 07/30/18 08:00 96.8 75 18 109/67 (81) 95 96.8 07/30/18 06:00 76 103/61 07/30/18 04:00 Room Air 07/30/18 04:00 98.2 78 20 103/61 (75) 100 98.2 07/30/18 04:00 76 07/30/18 00:00 Room Air 07/30/18 00:00 98.4 80 20 105/63 (77) 100 98.4 07/30/18 00:00 80 07/29/18 21:08 80 110/70 07/29/18 20:00 83 07/29/18 20:00 Room Air 07/29/18 20:00 98.3 80 20 110/70 (83) 100 98.3 07/29/18 16:10 97.5 77 20 110/67 (81) 100 97.5 07/29/18 16:00 Room Air 07/29/18 16:00 78 07/29/18 14:02 79 109/61 07/29/18 12:00 79 07/29/18 12:00 Room Air 07/29/18 11:55 97.6 79 20 109/61 (77) 98 97.6 Intake and Output 07/29/18 07/30/18 18:59 06:59 Intake Total 1120 ml Output Total 550 ml 700 ml Balance 570 ml -700 ml Intake Oral 900 ml IV Total 220 ml Output Urine Total 450 ml 300 ml Stool Total 100 ml 400 ml General Appearance: no acute distress HEENT: normocephalic Respiratory/Chest: chest wall non-tender, lungs clear Cardiovascular: normal peripheral pulses, normal rate Abdomen: normal bowel sounds Laboratory Tests 07/30/18 06:00: White Blood Count 19.2H, Red Blood Count 2.30L, Hemoglobin 7.3L, Hematocrit 22.1L, Mean Corpuscular Volume 96, Mean Corpuscular Hemoglobin 31.8H, Mean Corpuscular Hemoglobin Concent 33.0, Red Cell Distribution Width 19.0H, Platelet Count 78L, Mean Platelet Volume 13.1H, Neutrophils (%) (Auto) , Lymphocytes (%) (Auto) , Monocytes (%) (Auto) , Eosinophils (%) (Auto) , Basophils (%) (Auto) , Neutrophils % (Manual) [Pending], Lymphocytes % (Manual) [Pending], Platelet Estimate [Pending], Platelet Morphology [Pending], Sodium Level 142, Potassium Level 3.8, Chloride Level 112H, Carbon Dioxide Level 24, Anion Gap 6, Blood Urea Nitrogen 11, Creatinine 0.7, Estimat Glomerular Filtration Rate > 60, Glucose Level 87, Calcium Level 8.7, Total Bilirubin 5.9H , Direct Bilirubin 4.7H, Aspartate Amino Transf (AST/SGOT) 281H, Alanine Aminotransferase (ALT/SGPT) 87H, Alkaline Phosphatase 164H, Total Protein 5.8L, Albumin 1.3L Current Medications Medications (Trade) Dose Ordered Sig/Abner Route PRN Reason Start Time Stop Time Status Last Admin Dose Admin Cefepime HCl 2 gm/ Dextrose 110 ml @ 220 mls/hr EVERY 12 HOURS IVPB 07/29/18 21:00 08/05/18 20:59 07/30/18 08:46 Chlorhexidine Gluconate (Sierra-Hex 2%) 1 applic DAILY@2000 TOPIC 07/29/18 20:00 08/24/18 19:59 07/29/18 20:47 Folic Acid (Folate) 1 mg DAILY ORAL 07/30/18 09:00 08/15/18 08:59 07/30/18 08:46 Lactulose (Cephulac) 10 gm THREE TIMES A DAY ORAL 07/30/18 09:00 08/28/18 08:59 07/30/18 08:47 Nystatin (Nystatin) 5 ml QID ORAL 07/29/18 21:00 07/30/18 20:59 07/30/18 08:46 Ondansetron HCl (Zofran) 4 mg Q4H PRN IVP Nausea & Vomiting 07/29/18 21:30 08/15/18 17:29 Pantoprazole (Protonix) 40 mg Q12HR ORAL 07/29/18 21:00 08/28/18 20:59 07/30/18 08:46 Propranolol HCl (Inderal) 10 mg Q8HR ORAL 07/29/18 22:00 08/26/18 13:59 07/29/18 21:08 Rifaximin (Xifaxan) 550 mg EVERY 12 HOURS ORAL 07/29/18 21:00 08/20/18 20:59 07/30/18 08:46 Vancomycin HCl (Firvanq) 125 mg FOUR TIMES A DAY ORAL 07/29/18 21:00 08/05/18 09:59 07/30/18 08:47 Bowen Choudhury MD Jul 30, 2018 09:04
[2018-07-30 11:52] VITALS: BP 102/50
--- NOTE | 2018-07-30 13:33 | GI Progress Note ---
Assessment/Plan Problems: (1) Liver failure ICD Codes: K72.90 - Hepatic failure, unspecified without coma SNOMED: 05056739 Qualifiers: Qualified Codes: K72.01 - Acute and subacute hepatic failure with coma (2) Altered level of consciousness ICD Codes: R40.4 - Transient alteration of awareness SNOMED: 4909505 (3) GI bleed ICD Codes: K92.2 - Gastrointestinal hemorrhage, unspecified SNOMED: 17942478 Qualifiers: Qualified Codes: K92.2 - Gastrointestinal hemorrhage, unspecified (4) Hypokalemia ICD Codes: E87.6 - Hypokalemia SNOMED: 89084984 (5) Hepatic encephalopathy ICD Codes: K72.90 - Hepatic failure, unspecified without coma SNOMED: 39784560 (6) Anemia ICD Codes: D64.9 - Anemia, unspecified SNOMED: 873978315 Qualifiers: Qualified Codes: D64.9 - Anemia, unspecified Status: progressing Status Narrative Discussed with Dr. Rodriguez. Assessment/Plan Assessment - EtOH cirrhosis - Esophageal varicies - UGIB - s/p EGD and EBL - Anemia - paracentesis >> r/o SBP>> cytology negative for malignancy Recommendations - DO NOT reinsert NGT, can cause rebleed. - diet per ST - ppi BID - monitor labs - replace lytes - propanolol 10 mg TID - lactulose + xifaxan -repeat labs in am The patient was seen and examined at bedside and all new and available data was reviewed in the patients chart. I agree with the above findings, impression and plan. (Patient seen earlier today. Signature stamp does not reflect patient encounter time.). - Christopher Rodriguez MD Subjective Gastrointestinal/Abdominal: Reports: no symptoms Subjective overall feels better Objective Last 24 Hour Vital Signs Date Time Temp Pulse Resp B/P (MAP) Pulse Ox O2 Delivery O2 Flow Rate FiO2 07/30/18 13:07 80 102/50 07/30/18 12:00 76 07/30/18 11:52 96.9 80 18 102/50 (67) 96 96.9 07/30/18 09:00 Room Air 07/30/18 08:00 76 07/30/18 08:00 96.8 75 18 109/67 (81) 95 96.8 07/30/18 06:00 76 103/61 9/18/18 04:00 Room Air 07/30/18 04:00 98.2 78 20 103/61 (75) 100 98.2 07/30/18 04:00 76 07/30/18 00:00 Room Air 07/30/18 00:00 98.4 80 20 105/63 (77) 100 98.4 07/30/18 00:00 80 07/29/18 21:08 80 110/70 07/29/18 20:00 83 07/29/18 20:00 Room Air 07/29/18 20:00 98.3 80 20 110/70 (83) 100 98.3 07/29/18 16:10 97.5 77 20 110/67 (81) 100 97.5 07/29/18 16:00 Room Air 07/29/18 16:00 78 07/29/18 14:02 79 109/61 Intake and Output 07/29/18 07/30/18 19:00 07:00 Intake Total 1120 ml Output Total 550 ml 700 ml Balance 570 ml -700 ml Intake Oral 900 ml IV Total 220 ml Output Urine Total 450 ml 300 ml Stool Total 100 ml 400 ml Laboratory Tests Test 07/30/18 06:00 White Blood Count 19.2 K/UL (4.8-10.8) H Red Blood Count 2.30 M/UL (4.20-5.40) L Hemoglobin 7.3 G/DL (12.0-16.0) L Hematocrit 22.1 % (37.0-47.0) L Mean Corpuscular Volume 96 FL (80-99) Mean Corpuscular Hemoglobin 31.8 PG (27.0-31.0) H Mean Corpuscular Hemoglobin Concent 33.0 G/DL (32.0-36.0) Red Cell Distribution Width 19.0 % (11.6-14.8) H Platelet Count 78 K/UL (150-450) L Mean Platelet Volume 13.1 FL (6.5-10.1) H Neutrophils (%) (Auto) % (45.0-75.0) Lymphocytes (%) (Auto) % (20.0-45.0) Monocytes (%) (Auto) % (1.0-10.0) Eosinophils (%) (Auto) % (0.0-3.0) Basophils (%) (Auto) % (0.0-2.0) Differential Total Cells Counted 100 Neutrophils % (Manual) 80 % (45-75) H Lymphocytes % (Manual) 14 % (20-45) L Monocytes % (Manual) 4 % (1-10) Eosinophils % (Manual) 1 % (0-3) Basophils % (Manual) 1 % (0-2) Band Neutrophils 0 % (0-8) Platelet Estimate Decreased L Platelet Morphology Normal Hypochromasia 3+ Anisocytosis 2+ Spherocytes 1+ Sodium Level 142 MMOL/L (136-145) Potassium Level 3.8 MMOL/L (3.5-5.1) Chloride Level 112 MMOL/L (98-107) H Carbon Dioxide Level 24 MMOL/L (21-32) Anion Gap 6 mmol/L (5-15) Blood Urea Nitrogen 11 mg/dL (7-18) Creatinine 0.7 MG/DL (0.55-1.30) Estimat Glomerular Filtration Rate > 60 mL/min (>60) Glucose Level 87 MG/DL (74-106) Calcium Level 8.7 MG/DL (8.5-10.1) Total Bilirubin 5.9 MG/DL (0.2-1.0) H Direct Bilirubin 4.7 MG/DL (0.0-0.3) H Aspartate Amino Transf (AST/SGOT) 281 U/L (15-37) H Alanine Aminotransferase (ALT/SGPT) 87 U/L (12-78) H Alkaline Phosphatase 164 U/L (46-116) H Total Protein 5.8 G/DL (6.4-8.2) L Albumin 1.3 G/DL (3.4-5.0) L Height (Feet): 5 Height (Inches): 9.00 Weight (Pounds): 256 General Appearance: WD/WN, no apparent distress, alert, other - jaundice Cardiovascular: normal rate Respiratory/Chest: normal breath sounds, no respiratory distress Abdominal Exam: normal bowel sounds, non tender, soft Extremities: normal range of motion, non-tender Objective generalized jaundice Markus Lebron NP Jul 30, 2018 13:33
[2018-07-30 15:59] VITALS: BP 99/65
[2018-07-30 20:00] VITALS: BP 102/62
[2018-07-30] MEDS: Dyna-Hex 2% Top Sol 2oz TOPIC SCH (22:42)
[2018-07-31] VITALS (7 sets, daily range): BP systolic 90–110; BP diastolic 51–63
[2018-07-31] MEDS: Propranolol 10mg tab ORAL SCH ×3 (05:37→21:37)
[2018-07-31 06:02] LABS: HEMATOCRIT 21.6 % (37.0-47.0); HEMOGLOBIN 7.1 G/DL (12.0-16.0); MEAN CORPUSCULAR VOLUME 98 FL (80-99); PLATELET COUNT 75 K/UL (150-450); RED CELL DISTRIBUTION WIDTH 22.3 % (11.6-14.8); WHITE BLOOD COUNT 17.5 K/UL (4.8-10.8)
[2018-07-31 06:59] LABS: ANION GAP 8 mmol/L (5-15); BLOOD UREA NITROGEN 13 mg/dL (7-18); CALCIUM 8.7 MG/DL (8.5-10.1); CARBON DIOXIDE 22 MMOL/L (21-32); CHLORIDE 110 MMOL/L (98-107); CREATININE 0.8 MG/DL (0.55-1.30); POTASSIUM 3.8 MMOL/L (3.5-5.1); SODIUM 140 MMOL/L (136-145)
[2018-07-31 07:09] LABS: ALANINE AMINOTRANSFERASE 92 U/L (12-78); ALBUMIN 1.3 G/DL (3.4-5.0); ALKALINE PHOSPHATASE 165 U/L (46-116); ASPARTATE AMINO TRANSFERASE 304 U/L (15-37); BILIRUBIN,DIRECT 4.1 MG/DL (0.0-0.3); BILIRUBIN,TOTAL 5.2 MG/DL (0.2-1.0)
[2018-07-31] MEDS: Cefepime HCl 2 GM in D5W 110 ML IVPB SCH (08:46)
[2018-07-31] MEDS: Lactulose 20gm/30ml UDC ORAL SCH ×3 (08:46→18:19)
[2018-07-31] MEDS: Vancomycin oral 125mg/2.5ml ORAL SCH ×4 (08:55→20:45)
--- NOTE | 2018-07-31 09:01 | Pulmonology Progress Note ---
Assessment/Plan Assessment/Plan 1. Malnutrition. 2. Hepatic failure. Slowly improving; T.Tye better. 3. Suspicion of alcohol abuse. AST/ALT ratio very suggestive 4. Severe hypokalemia. Corrected. 5. Hyperglycemia. Resolved. 6. Leukocytosis. persistent but no clear source. 7. Anemia. 8. GI bleed 9. Pneumonia 10. Diarrhea; I have decreased lactulose; on PO Vanco as well DISCUSSION: 1. Anemia. S/p GI bleed; S/p EGD and banding. I will monitor hemoglobin and follow recs by GI. Transfuse per GI. 2. Hypokalemia, severe. Now corrected. 3. Suspicion of alcohol abuse. There is no clear history of alcohol; however, the AST/ALT ratio is suggestive of it. Mother was reporting she was consuming alcohol. Continue thiamine and folic acid. 4. Hepatic failure. This is apparently a chronic problem. Seen by Gastroenterology to assist in this matter. I will also continue lactulose. WIll decrease Lactulose given diarrhea. Continue Rifaximin. Seen by ID given high WBC Discuused with ID PO Vanco added CXR reviewed I will follow carefully. Dc planning to SNF vs home. Subjective Interval Events: WBC better; diarrhea less Constitutional: Reports: no symptoms HEENT: Repors: no symptoms Respiratory: Reports: no symptoms Cardiovascular: Reports: no symptoms Gastrointestinal/Abdominal: Reports: diarrhea Genitourinary: Reports: no symptoms Allergies: Coded Allergies: LORAZEPAM (Verified Allergy, Unknown, 05/21/18) PENICILLINS (Verified Allergy, Unknown, 05/21/18) Objective Last 24 Hour Vital Signs Date Time Temp Pulse Resp B/P (MAP) Pulse Ox O2 Delivery O2 Flow Rate FiO2 07/31/18 08:00 97.7 76 20 96/57 (70) 98 97.7 07/31/18 05:37 83 110/51 07/31/18 04:01 83 07/31/18 04:00 98.1 99 20 110/51 (70) 97 98.1 07/31/18 00:00 97.9 79 20 100/60 (73) 97 97.9 07/30/18 23:33 80 07/30/18 22:00 78 102/62 07/30/18 21:00 Room Air 07/30/18 20:00 79 07/30/18 20:00 97.5 78 20 102/62 (75) 99 97.5 07/30/18 16:00 74 07/30/18 15:59 97.5 75 20 99/65 (76) 95 97.5 07/30/18 13:07 80 102/50 07/30/18 12:00 76 07/30/18 11:52 96.9 80 18 102/50 (67) 96 96.9 Intake and Output 07/30/18 07/31/18 19:00 07:00 Intake Total 710 ml 100 ml Output Total 750 ml 400 ml Balance -40 ml -300 ml Intake Oral 600 ml 100 ml IV Total 110 ml Output Urine Total 400 ml 300 ml Stool Total 350 ml 100 ml General Appearance: no acute distress HEENT: normocephalic Respiratory/Chest: chest wall non-tender, lungs clear Cardiovascular: normal peripheral pulses, normal rate Abdomen: normal bowel sounds, soft, non tender Microbiology Date/Time Source Procedure Growth Status 07/29/18 11:40 Stool Clostridium difficile Toxin Assay - Final Complete Laboratory Tests 07/31/18 05:30: White Blood Count 17.5H, Red Blood Count 2.20L, Hemoglobin 7.1L, Hematocrit 21.6L, Mean Corpuscular Volume 98, Mean Corpuscular Hemoglobin 32.1H, Mean Corpuscular Hemoglobin Concent 32.7, Red Cell Distribution Width 22.3H, Platelet Count 75L, Mean Platelet Volume 13.4H, Neutrophils (%) (Auto) , Lymphocytes (%) (Auto) , Monocytes (%) (Auto) , Eosinophils (%) (Auto) , Basophils (%) (Auto) , Neutrophils % (Manual) [Pending], Lymphocytes % (Manual) [Pending], Platelet Estimate [Pending], Platelet Morphology [Pending], Sodium Level 140, Potassium Level 3.8, Chloride Level 110H, Carbon Dioxide Level 22, Anion Gap 8, Blood Urea Nitrogen 13, Creatinine 0.8, Estimat Glomerular Filtration Rate > 60, Glucose Level 99, Calcium Level 8.7, Total Bilirubin 5.2H , Direct Bilirubin 4.1H, Aspartate Amino Transf (AST/SGOT) 304H, Alanine Aminotransferase (ALT/SGPT) 92H, Alkaline Phosphatase 165H, Total Protein 5.8L, Albumin 1.3L Current Medications Medications (Trade) Dose Ordered Sig/Abner Route PRN Reason Start Time Stop Time Status Last Admin Dose Admin Cefepime HCl 2 gm/ Dextrose 110 ml @ 220 mls/hr EVERY 12 HOURS IVPB 07/29/18 21:00 08/05/18 20:59 07/31/18 08:46 Chlorhexidine Gluconate (Sierra-Hex 2%) 1 applic DAILY@2000 TOPIC 07/29/18 20:00 08/24/18 19:59 07/30/18 22:42 Folic Acid (Folate) 1 mg DAILY ORAL 07/30/18 09:00 08/15/18 08:59 07/31/18 08:46 Lactulose (Cephulac) 10 gm THREE TIMES A DAY ORAL 07/30/18 09:00 08/28/18 08:59 07/31/18 08:46 Ondansetron HCl (Zofran) 4 mg Q4H PRN IVP Nausea & Vomiting 07/29/18 21:30 08/15/18 17:29 Pantoprazole (Protonix) 40 mg Q12HR ORAL 07/29/18 21:00 08/28/18 20:59 07/31/18 08:46 Propranolol HCl (Inderal) 10 mg Q8HR ORAL 07/29/18 22:00 08/26/18 13:59 07/31/18 05:37 Rifaximin (Xifaxan) 550 mg EVERY 12 HOURS ORAL 07/29/18 21:00 08/20/18 20:59 07/31/18 08:46 Vancomycin HCl (Firvanq) 125 mg FOUR TIMES A DAY ORAL 07/29/18 21:00 08/05/18 09:59 07/31/18 08:55 Bowen Choudhury MD Jul 31, 2018 09:01
--- NOTE | 2018-07-31 14:05 | Infectious Diseases Prog Note ---
"Assessment/Plan Assessment/Plan antibiotics : cefepime, rifaximin, po vancomycin A 1. pneumonia s/p rx 2. leucocytosis improving 3. cirrhosis 4. hepatic encephalopathy 5. anemia 6. 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 VRE | fungal catheter infection s/p removal P 1. continue po vancomycin 2. start linezolid, fluconazole 3. d/c cefepime 4. will follow up cultures Subjective Constitutional: Denies: fever, chills Respiratory: Denies: shortness of breath, dry cough Gastrointestinal/Abdominal: Reports: diarrhea; Denies: nausea, vomiting Musculoskeletal: Reports: pain Allergies: Coded Allergies: LORAZEPAM (Verified Allergy, Unknown, 05/21/18) PENICILLINS (Verified Allergy, Unknown, 05/21/18) Objective Vital Signs Last 24 Hour Vital Signs Date Time Temp Pulse Resp B/P (MAP) Pulse Ox O2 Delivery O2 Flow Rate FiO2 07/31/18 13:47 77 90/61 07/31/18 12:00 97.9 77 20 90/61 (71) 100 97.9 07/31/18 12:00 77 07/31/18 09:00 Room Air 07/31/18 08:00 97.7 76 20 96/57 (70) 98 97.7 07/31/18 08:00 79 07/31/18 05:37 83 110/51 07/31/18 04:01 83 07/31/18 04:00 98.1 99 20 110/51 (70) 97 98.1 07/31/18 00:00 97.9 79 20 100/60 (73) 97 97.9 07/30/18 23:33 80 07/30/18 22:00 78 102/62 07/30/18 21:00 Room Air 07/30/18 20:00 79 07/30/18 20:00 97.5 78 20 102/62 (75) 99 97.5 07/30/18 16:00 74 07/30/18 15:59 97.5 75 20 99/65 (76) 95 97.5 Height (Feet): 5 Height (Inches): 9.00 Weight (Pounds): 250 Cardiovascular: normal rate, regular rhythm, no gallop/murmur Abdomen: soft, non tender Extremities: other - + edema, left arm PICC Microbiology Date/Time Source Procedure Growth Status 07/29/18 11:40 Stool Clostridium difficile Toxin Assay - Final Complete Laboratory Tests Test 07/31/18 05:30 White Blood Count 17.5 K/UL (4.8-10.8) H Red Blood Count 2.20 M/UL (4.20-5.40) L Hemoglobin 7.1 G/DL (12.0-16.0) L Hematocrit 21.6 % (37.0-47.0) L Mean Corpuscular Volume 98 FL (80-99) Mean Corpuscular Hemoglobin 32.1 PG (27.0-31.0) H Mean Corpuscular Hemoglobin Concent 32.7 G/DL (32.0-36.0) Red Cell Distribution Width 22.3 % (11.6-14.8) H Platelet Count 75 K/UL (150-450) L Mean Platelet Volume 13.4 FL (6.5-10.1) H Neutrophils (%) (Auto) % (45.0-75.0) Lymphocytes (%) (Auto) % (20.0-45.0) Monocytes (%) (Auto) % (1.0-10.0) Eosinophils (%) (Auto) % (0.0-3.0) Basophils (%) (Auto) % (0.0-2.0) Differential Total Cells Counted 100 Neutrophils % (Manual) 78 % (45-75) H Lymphocytes % (Manual) 11 % (20-45) L Monocytes % (Manual) 7 % (1-10) Eosinophils % (Manual) 1 % (0-3) Basophils % (Manual) 0 % (0-2) Band Neutrophils 3 % (0-8) Platelet Estimate Decreased L Platelet Morphology Normal Polychromasia 1+ Hypochromasia 1+ Anisocytosis 2+ Macrocytosis 1+ Sodium Level 140 MMOL/L (136-145) Potassium Level 3.8 MMOL/L (3.5-5.1) Chloride Level 110 MMOL/L (98-107) H Carbon Dioxide Level 22 MMOL/L (21-32) Anion Gap 8 mmol/L (5-15) Blood Urea Nitrogen 13 mg/dL (7-18) Creatinine 0.8 MG/DL (0.55-1.30) Estimat Glomerular Filtration Rate > 60 mL/min (>60) Glucose Level 99 MG/DL (74-106) Calcium Level 8.7 MG/DL (8.5-10.1) Total Bilirubin 5.2 MG/DL (0.2-1.0) H Direct Bilirubin 4.1 MG/DL (0.0-0.3) H Aspartate Amino Transf (AST/SGOT) 304 U/L (15-37) H Alanine Aminotransferase (ALT/SGPT) 92 U/L (12-78) H Alkaline Phosphatase 165 U/L (46-116) H Total Protein 5.8 G/DL (6.4-8.2) L Albumin 1.3 G/DL (3.4-5.0) L Current Medications Medications (Trade) Dose Ordered Sig/Abner Route PRN Reason Start Time Stop Time Status Last Admin Dose Admin Cefepime HCl 2 gm/ Dextrose 110 ml @ 220 mls/hr EVERY 12 HOURS IVPB 07/29/18 21:00 08/05/18 20:59 07/31/18 08:46 Chlorhexidine Gluconate (Sierra-Hex 2%) 1 applic DAILY@2000 TOPIC 07/29/18 20:00 08/24/18 19:59 07/30/18 22:42 Folic Acid (Folate) 1 mg DAILY ORAL 07/30/18 09:00 08/15/18 08:59 07/31/18 08:46 Lactulose (Cephulac) 10 gm THREE TIMES A DAY ORAL 07/30/18 09:00 08/28/18 08:59 07/31/18 13:47 Ondansetron HCl (Zofran) 4 mg Q4H PRN IVP Nausea & Vomiting 07/29/18 21:30 08/15/18 17:29 Pantoprazole (Protonix) 40 mg Q12HR ORAL 07/29/18 21:00 08/28/18 20:59 07/31/18 08:46 Propranolol HCl (Inderal) 10 mg Q8HR ORAL 07/29/18 22:00 08/26/18 13:59 07/31/18 05:37 Rifaximin (Xifaxan) 550 mg EVERY 12 HOURS ORAL 07/29/18 21:00 08/20/18 20:59 07/31/18 08:46 Vancomycin HCl (Firvanq) 125 mg FOUR TIMES A DAY ORAL 07/29/18 21:00 08/05/18 09:59 07/31/18 13:46 BENITO WATT Jul 31, 2018 14:05"
--- NOTE | 2018-07-31 14:08 | GI Progress Note ---
Assessment/Plan Problems: (1) Liver failure ICD Codes: K72.90 - Hepatic failure, unspecified without coma SNOMED: 87478737 Qualifiers: Qualified Codes: K72.01 - Acute and subacute hepatic failure with coma (2) Altered level of consciousness ICD Codes: R40.4 - Transient alteration of awareness SNOMED: 3550024 (3) GI bleed ICD Codes: K92.2 - Gastrointestinal hemorrhage, unspecified SNOMED: 87176839 Qualifiers: Qualified Codes: K92.2 - Gastrointestinal hemorrhage, unspecified (4) Hypokalemia ICD Codes: E87.6 - Hypokalemia SNOMED: 98049181 (5) Hepatic encephalopathy ICD Codes: K72.90 - Hepatic failure, unspecified without coma SNOMED: 29741432 (6) Anemia ICD Codes: D64.9 - Anemia, unspecified SNOMED: 482583778 Qualifiers: Qualified Codes: D64.9 - Anemia, unspecified Status: stable Status Narrative Discussed with Dr. Rodriguez. Assessment/Plan Assessment - EtOH cirrhosis - Esophageal varicies - UGIB - s/p EGD and EBL - Anemia - paracentesis >> r/o SBP>> cytology negative for malignancy Recommendations - supportive care - DO NOT reinsert NGT, can cause rebleed. - diet per ST - ppi BID - monitor labs - replace lytes - propanolol 10 mg TID - lactulose + xifaxan - PT evaluation -repeat labs in am The patient was seen and examined at bedside and all new and available data was reviewed in the patients chart. I agree with the above findings, impression and plan. (Patient seen earlier today. Signature stamp does not reflect patient encounter time.). - Christopher Rodriguez MD Subjective Subjective overall feels better Objective Last 24 Hour Vital Signs Date Time Temp Pulse Resp B/P (MAP) Pulse Ox O2 Delivery O2 Flow Rate FiO2 07/31/18 13:47 77 90/61 07/31/18 12:00 97.9 77 20 90/61 (71) 100 97.9 07/31/18 12:00 77 07/31/18 09:00 Room Air 07/31/18 08:00 97.7 76 20 96/57 (70) 98 97.7 07/31/18 08:00 79 07/31/18 05:37 83 110/51 07/31/18 04:01 83 07/31/18 04:00 98.1 99 20 110/51 (70) 97 98.1 07/31/18 00:00 97.9 79 20 100/60 (73) 97 97.9 07/30/18 23:33 80 07/30/18 22:00 78 102/62 07/30/18 21:00 Room Air 07/30/18 20:00 79 07/30/18 20:00 97.5 78 20 102/62 (75) 99 97.5 07/30/18 16:00 74 07/30/18 15:59 97.5 75 20 99/65 (76) 95 97.5 Intake and Output 07/30/18 07/31/18 19:00 07:00 Intake Total 710 ml 100 ml Output Total 750 ml 400 ml Balance -40 ml -300 ml Intake Oral 600 ml 100 ml IV Total 110 ml Output Urine Total 400 ml 300 ml Stool Total 350 ml 100 ml Laboratory Tests Test 07/31/18 05:30 White Blood Count 17.5 K/UL (4.8-10.8) H Red Blood Count 2.20 M/UL (4.20-5.40) L Hemoglobin 7.1 G/DL (12.0-16.0) L Hematocrit 21.6 % (37.0-47.0) L Mean Corpuscular Volume 98 FL (80-99) Mean Corpuscular Hemoglobin 32.1 PG (27.0-31.0) H Mean Corpuscular Hemoglobin Concent 32.7 G/DL (32.0-36.0) Red Cell Distribution Width 22.3 % (11.6-14.8) H Platelet Count 75 K/UL (150-450) L Mean Platelet Volume 13.4 FL (6.5-10.1) H Neutrophils (%) (Auto) % (45.0-75.0) Lymphocytes (%) (Auto) % (20.0-45.0) Monocytes (%) (Auto) % (1.0-10.0) Eosinophils (%) (Auto) % (0.0-3.0) Basophils (%) (Auto) % (0.0-2.0) Differential Total Cells Counted 100 Neutrophils % (Manual) 78 % (45-75) H Lymphocytes % (Manual) 11 % (20-45) L Monocytes % (Manual) 7 % (1-10) Eosinophils % (Manual) 1 % (0-3) Basophils % (Manual) 0 % (0-2) Band Neutrophils 3 % (0-8) Platelet Estimate Decreased L Platelet Morphology Normal Polychromasia 1+ Hypochromasia 1+ Anisocytosis 2+ Macrocytosis 1+ Sodium Level 140 MMOL/L (136-145) Potassium Level 3.8 MMOL/L (3.5-5.1) Chloride Level 110 MMOL/L (98-107) H Carbon Dioxide Level 22 MMOL/L (21-32) Anion Gap 8 mmol/L (5-15) Blood Urea Nitrogen 13 mg/dL (7-18) Creatinine 0.8 MG/DL (0.55-1.30) Estimat Glomerular Filtration Rate > 60 mL/min (>60) Glucose Level 99 MG/DL (74-106) Calcium Level 8.7 MG/DL (8.5-10.1) Total Bilirubin 5.2 MG/DL (0.2-1.0) H Direct Bilirubin 4.1 MG/DL (0.0-0.3) H Aspartate Amino Transf (AST/SGOT) 304 U/L (15-37) H Alanine Aminotransferase (ALT/SGPT) 92 U/L (12-78) H Alkaline Phosphatase 165 U/L (46-116) H Total Protein 5.8 G/DL (6.4-8.2) L Albumin 1.3 G/DL (3.4-5.0) L Height (Feet): 5 Height (Inches): 9.00 Weight (Pounds): 250 General Appearance: WD/WN, no apparent distress, alert Cardiovascular: normal rate Respiratory/Chest: normal breath sounds, no respiratory distress Abdominal Exam: normal bowel sounds, non tender, soft Extremities: normal range of motion, non-tender Objective generalized jaundice Markus Lebron NP Jul 31, 2018 14:08
[2018-07-31] MEDS: Fluconazole 100mg tab ORAL SCH (15:13)
[2018-07-31] MEDS: Dyna-Hex 2% Top Sol 2oz TOPIC SCH (20:44)
[2018-08-01] VITALS: BP 145/81
[2018-08-01 04:00] VITALS: BP 104/55
[2018-08-01] MEDS: Propranolol 10mg tab ORAL SCH ×4 (05:47→22:12)
[2018-08-01 06:03] LABS: HEMATOCRIT 21.3 % (37.0-47.0); MEAN CORPUSCULAR VOLUME 100 FL (80-99); PLATELET COUNT 75 K/UL (150-450); RED BLOOD COUNT 2.13 M/UL (4.20-5.40); RED CELL DISTRIBUTION WIDTH 22.5 % (11.6-14.8); WHITE BLOOD COUNT 17.8 K/UL (4.8-10.8)
[2018-08-01 06:09] LABS: HEMOGLOBIN 6.9 G/DL (12.0-16.0)
[2018-08-01 06:43] LABS: ALANINE AMINOTRANSFERASE 99 U/L (12-78); ALBUMIN 1.4 G/DL (3.4-5.0); ALBUMIN/GLOBULIN RATIO 0.3 (1.0-2.7); ALKALINE PHOSPHATASE 169 U/L (46-116); ANION GAP 7 mmol/L (5-15); ASPARTATE AMINO TRANSFERASE 298 U/L (15-37); BILIRUBIN,TOTAL 5.1 MG/DL (0.2-1.0); BLOOD UREA NITROGEN 14 mg/dL (7-18); CALCIUM 8.7 MG/DL (8.5-10.1); CARBON DIOXIDE 23 MMOL/L (21-32); CHLORIDE 107 MMOL/L (98-107); CREATININE 0.9 MG/DL (0.55-1.30); POTASSIUM 3.6 MMOL/L (3.5-5.1); SODIUM 137 MMOL/L (136-145)
[2018-08-01 08:00] VITALS: BP 100/59
[2018-08-01] MEDS: Vancomycin oral 125mg/2.5ml ORAL SCH ×2 (08:47→13:58)
[2018-08-01] MEDS: Lactulose 20gm/30ml UDC ORAL SCH ×3 (08:48→18:05)
--- NOTE | 2018-08-01 10:20 | GI Progress Note ---
Assessment/Plan Problems: (1) Liver failure ICD Codes: K72.90 - Hepatic failure, unspecified without coma SNOMED: 35040254 Qualifiers: Qualified Codes: K72.01 - Acute and subacute hepatic failure with coma (2) Altered level of consciousness ICD Codes: R40.4 - Transient alteration of awareness SNOMED: 7151766 (3) GI bleed ICD Codes: K92.2 - Gastrointestinal hemorrhage, unspecified SNOMED: 40783110 Qualifiers: Qualified Codes: K92.2 - Gastrointestinal hemorrhage, unspecified (4) Hypokalemia ICD Codes: E87.6 - Hypokalemia SNOMED: 50365926 (5) Hepatic encephalopathy ICD Codes: K72.90 - Hepatic failure, unspecified without coma SNOMED: 01589996 (6) Anemia ICD Codes: D64.9 - Anemia, unspecified SNOMED: 070636014 Qualifiers: Qualified Codes: D64.9 - Anemia, unspecified Status: stable Status Narrative Discussed with Dr. Rodriguez. Assessment/Plan Assessment - EtOH cirrhosis - Esophageal varicies - UGIB - s/p EGD and EBL - Anemia - paracentesis >> r/o SBP>> cytology negative for malignancy Recommendations - supportive care - DO NOT reinsert NGT, can cause rebleed. - diet per ST - ppi BID - monitor labs - replace lytes - propanolol 10 mg TID - lactulose + xifaxan - PT evaluation -repeat labs in am The patient was seen and examined at bedside and all new and available data was reviewed in the patients chart. I agree with the above findings, impression and plan. (Patient seen earlier today. Signature stamp does not reflect patient encounter time.). - Christopher Rodriguez MD Subjective Subjective overall feels better Objective Last 24 Hour Vital Signs Date Time Temp Pulse Resp B/P (MAP) Pulse Ox O2 Delivery O2 Flow Rate FiO2 08/01/18 08:00 97.7 85 20 100/59 (73) 94 97.7 08/01/18 07:51 84 08/01/18 05:47 86 104/55 08/01/18 04:03 86 08/01/18 04:00 98.0 83 20 104/55 (71) 99 98.0 08/01/18 00:19 86 08/01/18 00:00 98.0 91 20 145/81 (102) 99 98.0 07/31/18 21:37 82 104/63 07/31/18 21:00 Room Air 07/31/18 20:00 98.2 83 20 104/63 (77) 99 98.2 07/31/18 20:00 82 07/31/18 16:00 97.5 84 20 100/57 (71) 99 97.5 07/31/18 16:00 80 07/31/18 13:47 77 90/61 07/31/18 12:00 97.9 77 20 90/61 (71) 100 97.9 07/31/18 12:00 77 Intake and Output 07/31/18 08/01/18 19:00 07:00 Intake Total 960 ml Output Total 500 ml 300 ml Balance 460 ml -300 ml Intake Oral 960 ml Output Urine Total 500 ml 300 ml Laboratory Tests Test 08/01/18 03:30 White Blood Count 17.8 K/UL (4.8-10.8) H Red Blood Count 2.13 M/UL (4.20-5.40) L Hemoglobin 6.9 G/DL (12.0-16.0) *L Hematocrit 21.3 % (37.0-47.0) L Mean Corpuscular Volume 100 FL (80-99) H Mean Corpuscular Hemoglobin 32.3 PG (27.0-31.0) H Mean Corpuscular Hemoglobin Concent 32.3 G/DL (32.0-36.0) Red Cell Distribution Width 22.5 % (11.6-14.8) H Platelet Count 75 K/UL (150-450) L Mean Platelet Volume 12.3 FL (6.5-10.1) H Neutrophils (%) (Auto) % (45.0-75.0) Lymphocytes (%) (Auto) % (20.0-45.0) Monocytes (%) (Auto) % (1.0-10.0) Eosinophils (%) (Auto) % (0.0-3.0) Basophils (%) (Auto) % (0.0-2.0) Differential Total Cells Counted 100 Neutrophils % (Manual) 77 % (45-75) H Lymphocytes % (Manual) 16 % (20-45) L Monocytes % (Manual) 3 % (1-10) Eosinophils % (Manual) 2 % (0-3) Basophils % (Manual) 1 % (0-2) Band Neutrophils 1 % (0-8) Platelet Estimate Decreased L Platelet Morphology Normal Hypochromasia 2+ Anisocytosis 2+ Macrocytosis 1+ Sodium Level 137 MMOL/L (136-145) Potassium Level 3.6 MMOL/L (3.5-5.1) Chloride Level 107 MMOL/L (98-107) Carbon Dioxide Level 23 MMOL/L (21-32) Anion Gap 7 mmol/L (5-15) Blood Urea Nitrogen 14 mg/dL (7-18) Creatinine 0.9 MG/DL (0.55-1.30) Estimat Glomerular Filtration Rate > 60 mL/min (>60) Glucose Level 70 MG/DL (74-106) L Calcium Level 8.7 MG/DL (8.5-10.1) Total Bilirubin 5.1 MG/DL (0.2-1.0) H Direct Bilirubin 4.0 MG/DL (0.0-0.3) H Aspartate Amino Transf (AST/SGOT) 298 U/L (15-37) H Alanine Aminotransferase (ALT/SGPT) 99 U/L (12-78) H Alkaline Phosphatase 169 U/L (46-116) H Total Protein 5.9 G/DL (6.4-8.2) L Albumin 1.4 G/DL (3.4-5.0) L Globulin 4.5 g/dL Albumin/Globulin Ratio 0.3 (1.0-2.7) L Height (Feet): 5 Height (Inches): 9.00 Weight (Pounds): 290 General Appearance: WD/WN, no apparent distress, alert, overweight Cardiovascular: normal rate Respiratory/Chest: normal breath sounds, no respiratory distress Abdominal Exam: normal bowel sounds, non tender, soft, ascites Extremities: normal range of motion, non-tender Objective generalized jaundice Markus Lebron NP Aug 01, 2018 10:20
[2018-08-01 12:00] VITALS: BP 96/54
--- NOTE | 2018-08-01 12:30 | Pulmonology Progress Note ---
Assessment/Plan Assessment/Plan 1. Malnutrition. 2. Hepatic failure. Slowly improving; T.Tye better. 3. Suspicion of alcohol abuse. AST/ALT ratio very suggestive 4. Severe hypokalemia. Corrected. 5. Hyperglycemia. Resolved. 6. Leukocytosis. persistent but no clear source. 7. Anemia. 8. GI bleed 9. Pneumonia 10. Diarrhea; I have decreased lactulose; on PO Vanco as well DISCUSSION: 1. Anemia. S/p GI bleed; S/p EGD and banding. I will monitor hemoglobin and follow recs by GI. Transfuse per GI. 2. Hypokalemia, severe. Now corrected. 3. Suspicion of alcohol abuse. There is no clear history of alcohol; however, the AST/ALT ratio is suggestive of it. Mother was reporting she was consuming alcohol. Continue thiamine and folic acid. 4. Hepatic failure. This is apparently a chronic problem. Seen by Gastroenterology to assist in this matter. I will also continue lactulose. WIll decrease Lactulose given diarrhea. Continue Rifaximin. Seen by ID given high WBC Discuused with ID PO Vanco added CXR reviewed I will follow carefully. Dc planning to subacute Subjective Interval Events: Doing better; Hgb 6.9 Constitutional: Reports: no symptoms HEENT: Repors: no symptoms Respiratory: Reports: no symptoms Cardiovascular: Reports: no symptoms Gastrointestinal/Abdominal: Reports: diarrhea Genitourinary: Reports: no symptoms Allergies: Coded Allergies: LORAZEPAM (Verified Allergy, Unknown, 05/21/18) PENICILLINS (Verified Allergy, Unknown, 05/21/18) Objective Last 24 Hour Vital Signs Date Time Temp Pulse Resp B/P (MAP) Pulse Ox O2 Delivery O2 Flow Rate FiO2 08/01/18 12:00 98.4 82 20 96/54 (68) 98 98.4 08/01/18 09:00 Room Air 08/01/18 08:00 97.7 85 20 100/59 (73) 94 97.7 08/01/18 07:51 84 08/01/18 05:47 86 104/55 08/01/18 04:03 86 08/01/18 04:00 98.0 83 20 104/55 (71) 99 98.0 08/01/18 00:19 86 08/01/18 00:00 98.0 91 20 145/81 (102) 99 98.0 07/31/18 21:37 82 104/63 07/31/18 21:00 Room Air 07/31/18 20:00 98.2 83 20 104/63 (77) 99 98.2 07/31/18 20:00 82 07/31/18 16:00 97.5 84 20 100/57 (71) 99 97.5 07/31/18 16:00 80 07/31/18 13:47 77 90/61 Intake and Output 07/31/18 08/01/18 19:00 07:00 Intake Total 960 ml Output Total 500 ml 300 ml Balance 460 ml -300 ml Intake Oral 960 ml Output Urine Total 500 ml 300 ml General Appearance: no acute distress HEENT: normocephalic Respiratory/Chest: chest wall non-tender, lungs clear Cardiovascular: normal peripheral pulses, normal rate Laboratory Tests 08/01/18 03:30: White Blood Count 17.8H, Red Blood Count 2.13L, Hemoglobin 6.9*L, Hematocrit 21.3L, Mean Corpuscular Volume 100H, Mean Corpuscular Hemoglobin 32.3H, Mean Corpuscular Hemoglobin Concent 32.3, Red Cell Distribution Width 22.5H, Platelet Count 75L, Mean Platelet Volume 12.3H, Neutrophils (%) (Auto) , Lymphocytes (%) (Auto) , Monocytes (%) (Auto) , Eosinophils (%) (Auto) , Basophils (%) (Auto) , Differential Total Cells Counted 100, Neutrophils % ( Manual) 77H, Lymphocytes % (Manual) 16L, Monocytes % (Manual) 3, Eosinophils % ( Manual) 2, Basophils % (Manual) 1, Band Neutrophils 1, Platelet Estimate DecreasedL, Platelet Morphology Normal, Hypochromasia 2+, Anisocytosis 2+, Macrocytosis 1+, Sodium Level 137, Potassium Level 3.6, Chloride Level 107, Carbon Dioxide Level 23, Anion Gap 7, Blood Urea Nitrogen 14, Creatinine 0.9, Estimat Glomerular Filtration Rate > 60, Glucose Level 70L, Calcium Level 8.7, Total Bilirubin 5.1H, Direct Bilirubin 4.0H, Aspartate Amino Transf (AST/SGOT) 298H, Alanine Aminotransferase (ALT/SGPT) 99H, Alkaline Phosphatase 169H, Total Protein 5.9L, Albumin 1.4L, Globulin 4.5, Albumin/Globulin Ratio 0.3L Current Medications Medications (Trade) Dose Ordered Sig/Abner Route PRN Reason Start Time Stop Time Status Last Admin Dose Admin Chlorhexidine Gluconate (Sierra-Hex 2%) 1 applic DAILY@1999 TOPIC 07/29/18 20:00 08/24/18 19:59 07/31/18 20:44 Fluconazole (Diflucan) 100 mg Q24H ORAL 07/31/18 15:00 08/07/18 14:59 07/31/18 15:13 Folic Acid (Folate) 1 mg DAILY ORAL 07/30/18 09:00 08/15/18 08:59 08/01/18 08:47 Lactulose (Cephulac) 10 gm THREE TIMES A DAY ORAL 07/30/18 09:00 08/28/18 08:59 08/01/18 08:48 Linezolid (Zyvox) 600 mg EVERY 12 HOURS ORAL 08/01/18 09:00 08/06/18 08:59 08/01/18 08:47 Ondansetron HCl (Zofran) 4 mg Q4H PRN IVP Nausea & Vomiting 07/29/18 21:30 08/15/18 17:29 Pantoprazole (Protonix) 40 mg Q12HR ORAL 07/29/18 21:00 08/28/18 20:59 08/01/18 08:47 Propranolol HCl (Inderal) 10 mg Q8HR ORAL 07/29/18 22:00 08/26/18 13:59 07/31/18 05:37 Rifaximin (Xifaxan) 550 mg EVERY 12 HOURS ORAL 07/29/18 21:00 08/20/18 20:59 08/01/18 08:47 Vancomycin HCl (Firvanq) 125 mg FOUR TIMES A DAY ORAL 07/29/18 21:00 08/05/18 09:59 08/01/18 08:47 Bowen Choudhury MD Aug 01, 2018 12:30
--- NOTE | 2018-08-01 15:07 | Infectious Diseases Prog Note ---
Assessment/Plan Assessment/Plan A 1. pneumonia 2. leucocytosis 3. cirrhosis 4. hepatic encephalopathy improving 5. anemia 6. thrombocytopenia 7. Hypernatremia 8. Catheter related blood stream infection P Continue Linezolid & Fluconazole Discontinue PO Vancomycin Subjective ROS Limited/Unobtainable: Yes Respiratory: Reports: other - occasional cough Gastrointestinal/Abdominal: Reports: other - pain with eating food Genitourinary: Reports: no symptoms Allergies: Coded Allergies: LORAZEPAM (Verified Allergy, Unknown, 05/21/18) PENICILLINS (Verified Allergy, Unknown, 05/21/18) Objective Vital Signs Last 24 Hour Vital Signs Date Time Temp Pulse Resp B/P (MAP) Pulse Ox O2 Delivery O2 Flow Rate FiO2 08/01/18 14:00 82 96/54 08/01/18 12:00 98.4 82 20 96/54 (68) 98 98.4 08/01/18 11:49 80 08/01/18 09:00 Room Air 08/01/18 08:00 97.7 85 20 100/59 (73) 94 97.7 08/01/18 07:51 84 08/01/18 05:47 86 104/55 08/01/18 04:03 86 08/01/18 04:00 98.0 83 20 104/55 (71) 99 98.0 08/01/18 00:19 86 08/01/18 00:00 98.0 91 20 145/81 (102) 99 98.0 07/31/18 21:37 82 104/63 07/31/18 21:00 Room Air 07/31/18 20:00 98.2 83 20 104/63 (77) 99 98.2 07/31/18 20:00 82 07/31/18 16:00 97.5 84 20 100/57 (71) 99 97.5 07/31/18 16:00 80 Height (Feet): 5 Height (Inches): 9.00 Weight (Pounds): 290 HEENT: mucous membranes moist, other - yellowish sclera Cardiovascular: normal rate, other - left arm PICC line Abdomen: soft, non tender Extremities: other - edema of lrgs Neurologic/Psychiatric: alert, responsive Laboratory Tests Test 08/01/18 03:30 White Blood Count 17.8 K/UL (4.8-10.8) H Red Blood Count 2.13 M/UL (4.20-5.40) L Hemoglobin 6.9 G/DL (12.0-16.0) *L Hematocrit 21.3 % (37.0-47.0) L Mean Corpuscular Volume 100 FL (80-99) H Mean Corpuscular Hemoglobin 32.3 PG (27.0-31.0) H Mean Corpuscular Hemoglobin Concent 32.3 G/DL (32.0-36.0) Red Cell Distribution Width 22.5 % (11.6-14.8) H Platelet Count 75 K/UL (150-450) L Mean Platelet Volume 12.3 FL (6.5-10.1) H Neutrophils (%) (Auto) % (45.0-75.0) Lymphocytes (%) (Auto) % (20.0-45.0) Monocytes (%) (Auto) % (1.0-10.0) Eosinophils (%) (Auto) % (0.0-3.0) Basophils (%) (Auto) % (0.0-2.0) Differential Total Cells Counted 100 Neutrophils % (Manual) 77 % (45-75) H Lymphocytes % (Manual) 16 % (20-45) L Monocytes % (Manual) 3 % (1-10) Eosinophils % (Manual) 2 % (0-3) Basophils % (Manual) 1 % (0-2) Band Neutrophils 1 % (0-8) Platelet Estimate Decreased L Platelet Morphology Normal Hypochromasia 2+ Anisocytosis 2+ Macrocytosis 1+ Sodium Level 137 MMOL/L (136-145) Potassium Level 3.6 MMOL/L (3.5-5.1) Chloride Level 107 MMOL/L (98-107) Carbon Dioxide Level 23 MMOL/L (21-32) Anion Gap 7 mmol/L (5-15) Blood Urea Nitrogen 14 mg/dL (7-18) Creatinine 0.9 MG/DL (0.55-1.30) Estimat Glomerular Filtration Rate > 60 mL/min (>60) Glucose Level 70 MG/DL (74-106) L Calcium Level 8.7 MG/DL (8.5-10.1) Total Bilirubin 5.1 MG/DL (0.2-1.0) H Direct Bilirubin 4.0 MG/DL (0.0-0.3) H Aspartate Amino Transf (AST/SGOT) 298 U/L (15-37) H Alanine Aminotransferase (ALT/SGPT) 99 U/L (12-78) H Alkaline Phosphatase 169 U/L (46-116) H Total Protein 5.9 G/DL (6.4-8.2) L Albumin 1.4 G/DL (3.4-5.0) L Globulin 4.5 g/dL Albumin/Globulin Ratio 0.3 (1.0-2.7) L Current Medications Medications (Trade) Dose Ordered Sig/Abner Route PRN Reason Start Time Stop Time Status Last Admin Dose Admin Chlorhexidine Gluconate (Sierra-Hex 2%) 1 applic DAILY@1999 TOPIC 07/29/18 20:00 08/24/18 19:59 07/31/18 20:44 Fluconazole (Diflucan) 100 mg Q24H ORAL 07/31/18 15:00 08/07/18 14:59 07/31/18 15:13 Folic Acid (Folate) 1 mg DAILY ORAL 07/30/18 09:00 08/15/18 08:59 08/01/18 08:47 Lactulose (Cephulac) 10 gm THREE TIMES A DAY ORAL 07/30/18 09:00 08/28/18 08:59 08/01/18 13:55 Linezolid (Zyvox) 600 mg EVERY 12 HOURS ORAL 08/01/18 09:00 08/06/18 08:59 08/01/18 08:47 Ondansetron HCl (Zofran) 4 mg Q4H PRN IVP Nausea & Vomiting 07/29/18 21:30 08/15/18 17:29 Pantoprazole (Protonix) 40 mg Q12HR ORAL 07/29/18 21:00 08/28/18 20:59 08/01/18 08:47 Propranolol HCl (Inderal) 10 mg Q8HR ORAL 07/29/18 22:00 08/26/18 13:59 07/31/18 05:37 Rifaximin (Xifaxan) 550 mg EVERY 12 HOURS ORAL 07/29/18 21:00 08/20/18 20:59 08/01/18 08:47 Vancomycin HCl (Firvanq) 125 mg FOUR TIMES A DAY ORAL 07/29/18 21:00 08/05/18 09:59 08/01/18 13:58 Damian Ly MD Aug 01, 2018 15:07
[2018-08-01 16:00] VITALS: BP 151/114
[2018-08-01] MEDS: Fluconazole 100mg tab ORAL SCH (16:51)
[2018-08-01 19:55] VITALS: BP 118/66
[2018-08-01] MEDS: Dyna-Hex 2% Top Sol 2oz TOPIC SCH (20:44)
[2018-08-02] VITALS: BP 93/48
[2018-08-02 04:00] VITALS: BP 101/41
[2018-08-02] MEDS: Propranolol 10mg tab ORAL SCH ×3 (05:20→21:59)
[2018-08-02 07:43] LABS: HEMATOCRIT 23.8 % (37.0-47.0); HEMOGLOBIN 7.9 G/DL (12.0-16.0); MEAN CORPUSCULAR VOLUME 98 FL (80-99); PLATELET COUNT 64 K/UL (150-450); RED BLOOD COUNT 2.44 M/UL (4.20-5.40); RED CELL DISTRIBUTION WIDTH 21.2 % (11.6-14.8)
[2018-08-02 07:46] LABS: WHITE BLOOD COUNT 15.8 K/UL (4.8-10.8)
[2018-08-02 08:00] VITALS: BP 100/58
[2018-08-02 08:28] LABS: ALANINE AMINOTRANSFERASE 98 U/L (12-78); ALBUMIN 1.4 G/DL (3.4-5.0); ALBUMIN/GLOBULIN RATIO 0.3 (1.0-2.7); ALKALINE PHOSPHATASE 159 U/L (46-116); ANION GAP 8 mmol/L (5-15); ASPARTATE AMINO TRANSFERASE 272 U/L (15-37); BILIRUBIN,DIRECT 5.6 MG/DL (0.0-0.3); BILIRUBIN,TOTAL 7.9 MG/DL (0.2-1.0); BLOOD UREA NITROGEN 13 mg/dL (7-18); CALCIUM 8.4 MG/DL (8.5-10.1); CARBON DIOXIDE 22 MMOL/L (21-32); CHLORIDE 105 MMOL/L (98-107); CREATININE 0.7 MG/DL (0.55-1.30); POTASSIUM 3.7 MMOL/L (3.5-5.1); SODIUM 135 MMOL/L (136-145)
--- NOTE | 2018-08-02 10:42 | GI Progress Note ---
Assessment/Plan Problems: (1) Liver failure ICD Codes: K72.90 - Hepatic failure, unspecified without coma SNOMED: 95554026 Qualifiers: Qualified Codes: K72.01 - Acute and subacute hepatic failure with coma (2) Altered level of consciousness ICD Codes: R40.4 - Transient alteration of awareness SNOMED: 2267802 (3) GI bleed ICD Codes: K92.2 - Gastrointestinal hemorrhage, unspecified SNOMED: 73241265 Qualifiers: Qualified Codes: K92.2 - Gastrointestinal hemorrhage, unspecified (4) Hypokalemia ICD Codes: E87.6 - Hypokalemia SNOMED: 15660503 (5) Hepatic encephalopathy ICD Codes: K72.90 - Hepatic failure, unspecified without coma SNOMED: 56296812 (6) Anemia ICD Codes: D64.9 - Anemia, unspecified SNOMED: 027956592 Qualifiers: Qualified Codes: D64.9 - Anemia, unspecified Status: stable Status Narrative Discussed with Dr. Rodriguez. Assessment/Plan Assessment - EtOH cirrhosis - Esophageal varicies - UGIB - s/p EGD and EBL - Anemia - paracentesis >> r/o SBP>> cytology negative for malignancy Recommendations - supportive care - DO NOT reinsert NGT, can cause rebleed. - diet per ST - ppi BID - monitor labs - replace lytes - propanolol 10 mg TID for portal HTN, hold if SBP < 90. - needs to be on maintenance lactulose - PT evaluation -repeat labs in am The patient was seen and examined at bedside and all new and available data was reviewed in the patients chart. I agree with the above findings, impression and plan. (Patient seen earlier today. Signature stamp does not reflect patient encounter time.). - Christopher Rodriguez MD Subjective Subjective overall feels better Objective Last 24 Hour Vital Signs Date Time Temp Pulse Resp B/P (MAP) Pulse Ox O2 Delivery O2 Flow Rate FiO2 08/02/18 08:20 Room Air 08/02/18 08:00 97.7 80 20 100/58 (72) 96 97.7 08/02/18 07:43 80 08/02/18 05:20 78 89/41 08/02/18 04:00 98.0 78 20 101/41 (61) 96 98.0 08/02/18 04:00 77 08/02/18 00:00 98.1 74 20 93/48 (63) 96 98.1 08/02/18 00:00 76 08/01/18 22:12 82 118/66 08/01/18 21:00 Room Air 08/01/18 20:00 81 08/01/18 19:55 97.0 82 21 118/66 (83) 98 97.0 08/01/18 16:00 79 08/01/18 16:00 98.8 93 22 151/114 (126) 98 98.8 08/01/18 14:00 82 96/54 08/01/18 12:00 98.4 82 20 96/54 (68) 98 98.4 08/01/18 11:49 80 Intake and Output 08/01/18 08/02/18 19:00 07:00 Intake Total 840 ml Output Total 600 ml Balance 240 ml Intake Oral 840 ml Output Urine Total 600 ml Laboratory Tests Test 08/02/18 07:15 White Blood Count 15.8 K/UL (4.8-10.8) H Red Blood Count 2.44 M/UL (4.20-5.40) L Hemoglobin 7.9 G/DL (12.0-16.0) L Hematocrit 23.8 % (37.0-47.0) L Mean Corpuscular Volume 98 FL (80-99) Mean Corpuscular Hemoglobin 32.4 PG (27.0-31.0) H Mean Corpuscular Hemoglobin Concent 33.1 G/DL (32.0-36.0) Red Cell Distribution Width 21.2 % (11.6-14.8) H Platelet Count 64 K/UL (150-450) L Mean Platelet Volume 11.6 FL (6.5-10.1) H Neutrophils (%) (Auto) % (45.0-75.0) Lymphocytes (%) (Auto) % (20.0-45.0) Monocytes (%) (Auto) % (1.0-10.0) Eosinophils (%) (Auto) % (0.0-3.0) Basophils (%) (Auto) % (0.0-2.0) Differential Total Cells Counted 100 Neutrophils % (Manual) 78 % (45-75) H Lymphocytes % (Manual) 18 % (20-45) L Monocytes % (Manual) 2 % (1-10) Eosinophils % (Manual) 0 % (0-3) Basophils % (Manual) 0 % (0-2) Band Neutrophils 2 % (0-8) Platelet Estimate Decreased L Platelet Morphology Normal Anisocytosis 1+ Sodium Level 135 MMOL/L (136-145) L Potassium Level 3.7 MMOL/L (3.5-5.1) Chloride Level 105 MMOL/L (98-107) Carbon Dioxide Level 22 MMOL/L (21-32) Anion Gap 8 mmol/L (5-15) Blood Urea Nitrogen 13 mg/dL (7-18) Creatinine 0.7 MG/DL (0.55-1.30) Estimat Glomerular Filtration Rate > 60 mL/min (>60) Glucose Level 91 MG/DL (74-106) Calcium Level 8.4 MG/DL (8.5-10.1) L Total Bilirubin 7.9 MG/DL (0.2-1.0) H Direct Bilirubin 5.6 MG/DL (0.0-0.3) H Aspartate Amino Transf (AST/SGOT) 272 U/L (15-37) H Alanine Aminotransferase (ALT/SGPT) 98 U/L (12-78) H Alkaline Phosphatase 159 U/L (46-116) H Total Protein 6.0 G/DL (6.4-8.2) L Albumin 1.4 G/DL (3.4-5.0) L Globulin 4.6 g/dL Albumin/Globulin Ratio 0.3 (1.0-2.7) L Height (Feet): 5 Height (Inches): 9.00 Weight (Pounds): 306 General Appearance: WD/WN, no apparent distress, alert Cardiovascular: normal rate Respiratory/Chest: normal breath sounds, no respiratory distress Abdominal Exam: normal bowel sounds, non tender, soft, ascites Extremities: normal range of motion, non-tender Objective generalized jaundice Markus Lebron NP Aug 02, 2018 10:42
--- NOTE | 2018-08-02 10:46 | Infectious Diseases Prog Note ---
"Assessment/Plan Assessment/Plan antibiotics : linezolid, fluconazole, rifaximin A 1. pneumonia s/p rx 2. leucocytosis improving 3. cirrhosis 4. hepatic encephalopathy 5. anemia 6. 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 VRE | fungal catheter infection s/p removal P 1. continue po linezolid, fluconazole 4 more days 2. will follow up cultures Subjective Constitutional: Denies: fever, chills Respiratory: Denies: shortness of breath, dry cough Gastrointestinal/Abdominal: Denies: nausea, vomiting, diarrhea Musculoskeletal: Denies: pain Allergies: Coded Allergies: LORAZEPAM (Verified Allergy, Unknown, 05/21/18) PENICILLINS (Verified Allergy, Unknown, 05/21/18) Objective Vital Signs Last 24 Hour Vital Signs Date Time Temp Pulse Resp B/P (MAP) Pulse Ox O2 Delivery O2 Flow Rate FiO2 08/02/18 08:20 Room Air 08/02/18 08:00 97.7 80 20 100/58 (72) 96 97.7 08/02/18 07:43 80 08/02/18 05:20 78 89/41 08/02/18 04:00 98.0 78 20 101/41 (61) 96 98.0 08/02/18 04:00 77 08/02/18 00:00 98.1 74 20 93/48 (63) 96 98.1 08/02/18 00:00 76 08/01/18 22:12 82 118/66 08/01/18 21:00 Room Air 08/01/18 20:00 81 08/01/18 19:55 97.0 82 21 118/66 (83) 98 97.0 08/01/18 16:00 79 08/01/18 16:00 98.8 93 22 151/114 (126) 98 98.8 08/01/18 14:00 82 96/54 08/01/18 12:00 98.4 82 20 96/54 (68) 98 98.4 08/01/18 11:49 80 Height (Feet): 5 Height (Inches): 9.00 Weight (Pounds): 306 Respiratory/Chest: lungs clear Cardiovascular: normal rate, regular rhythm, no gallop/murmur Abdomen: soft, non tender, other - drain Extremities: other - + edema, left arm PICC Laboratory Tests Test 08/02/18 07:15 White Blood Count 15.8 K/UL (4.8-10.8) H Red Blood Count 2.44 M/UL (4.20-5.40) L Hemoglobin 7.9 G/DL (12.0-16.0) L Hematocrit 23.8 % (37.0-47.0) L Mean Corpuscular Volume 98 FL (80-99) Mean Corpuscular Hemoglobin 32.4 PG (27.0-31.0) H Mean Corpuscular Hemoglobin Concent 33.1 G/DL (32.0-36.0) Red Cell Distribution Width 21.2 % (11.6-14.8) H Platelet Count 64 K/UL (150-450) L Mean Platelet Volume 11.6 FL (6.5-10.1) H Neutrophils (%) (Auto) % (45.0-75.0) Lymphocytes (%) (Auto) % (20.0-45.0) Monocytes (%) (Auto) % (1.0-10.0) Eosinophils (%) (Auto) % (0.0-3.0) Basophils (%) (Auto) % (0.0-2.0) Differential Total Cells Counted 100 Neutrophils % (Manual) 78 % (45-75) H Lymphocytes % (Manual) 18 % (20-45) L Monocytes % (Manual) 2 % (1-10) Eosinophils % (Manual) 0 % (0-3) Basophils % (Manual) 0 % (0-2) Band Neutrophils 2 % (0-8) Platelet Estimate Decreased L Platelet Morphology Normal Anisocytosis 1+ Sodium Level 135 MMOL/L (136-145) L Potassium Level 3.7 MMOL/L (3.5-5.1) Chloride Level 105 MMOL/L (98-107) Carbon Dioxide Level 22 MMOL/L (21-32) Anion Gap 8 mmol/L (5-15) Blood Urea Nitrogen 13 mg/dL (7-18) Creatinine 0.7 MG/DL (0.55-1.30) Estimat Glomerular Filtration Rate > 60 mL/min (>60) Glucose Level 91 MG/DL (74-106) Calcium Level 8.4 MG/DL (8.5-10.1) L Total Bilirubin 7.9 MG/DL (0.2-1.0) H Direct Bilirubin 5.6 MG/DL (0.0-0.3) H Aspartate Amino Transf (AST/SGOT) 272 U/L (15-37) H Alanine Aminotransferase (ALT/SGPT) 98 U/L (12-78) H Alkaline Phosphatase 159 U/L (46-116) H Total Protein 6.0 G/DL (6.4-8.2) L Albumin 1.4 G/DL (3.4-5.0) L Globulin 4.6 g/dL Albumin/Globulin Ratio 0.3 (1.0-2.7) L Current Medications Medications (Trade) Dose Ordered Sig/Abner Route PRN Reason Start Time Stop Time Status Last Admin Dose Admin Chlorhexidine Gluconate (Sierra-Hex 2%) 1 applic DAILY@1999 TOPIC 07/29/18 20:00 08/24/18 19:59 08/01/18 20:44 Fluconazole (Diflucan) 100 mg Q24H ORAL 07/31/18 15:00 08/07/18 14:59 08/01/18 16:51 Folic Acid (Folate) 1 mg DAILY ORAL 07/30/18 09:00 08/15/18 08:59 08/02/18 08:54 Lactulose (Cephulac) 10 gm DAILY ORAL 08/03/18 09:00 09/02/18 08:59 Linezolid (Zyvox) 600 mg EVERY 12 HOURS ORAL 08/01/18 09:00 08/06/18 08:59 08/02/18 08:54 Ondansetron HCl (Zofran) 4 mg Q4H PRN IVP Nausea & Vomiting 07/29/18 21:30 08/15/18 17:29 Pantoprazole (Protonix) 40 mg Q12HR ORAL 07/29/18 21:00 08/28/18 20:59 08/02/18 08:54 Propranolol HCl (Inderal) 10 mg Q8HR ORAL 07/29/18 22:00 08/26/18 13:59 08/01/18 22:12 Rifaximin (Xifaxan) 550 mg EVERY 12 HOURS ORAL 07/29/18 21:00 08/20/18 20:59 08/02/18 08:53 BENITO WATT Aug 02, 2018 10:46"
--- NOTE | 2018-08-02 11:43 | Pulmonology Progress Note ---
Assessment/Plan Assessment/Plan 1. Malnutrition. 2. Hepatic failure. Slowly improving; T.Tye better. 3. Suspicion of alcohol abuse. AST/ALT ratio very suggestive 4. Severe hypokalemia. Corrected. 5. Hyperglycemia. Resolved. 6. Leukocytosis. persistent but no clear source. 7. Anemia. 8. GI bleed 9. Pneumonia 10. Diarrhea; I will dc lactulose; on PO Vanco as well DISCUSSION: 1. Anemia. S/p GI bleed; S/p EGD and banding. I will monitor hemoglobin and follow recs by GI. Transfused per GI. 2. Hypokalemia, severe. Now corrected. 3. Suspicion of alcohol abuse. There is no clear history of alcohol; however, the AST/ALT ratio is suggestive of it. Mother was reporting she was consuming alcohol. Continue thiamine and folic acid. 4. Hepatic failure. This is apparently a chronic problem. Seen by Gastroenterology to assist in this matter. I will also continue lactulose. WIll decrease Lactulose given diarrhea. Continue Rifaximin. Seen by ID given high WBC Discussed with ID PO Vanco added CXR reviewed I will follow carefully. Dc planning to subacute vs snf vs home PT OT eval Dc rectal tube Subjective Interval Events: Awake and responsive; tolerating diet Constitutional: Reports: no symptoms HEENT: Repors: no symptoms Respiratory: Reports: no symptoms Cardiovascular: Reports: no symptoms Gastrointestinal/Abdominal: Reports: diarrhea Genitourinary: Reports: no symptoms Allergies: Coded Allergies: LORAZEPAM (Verified Allergy, Unknown, 05/21/18) PENICILLINS (Verified Allergy, Unknown, 05/21/18) Objective Last 24 Hour Vital Signs Date Time Temp Pulse Resp B/P (MAP) Pulse Ox O2 Delivery O2 Flow Rate FiO2 08/02/18 08:20 Room Air 08/02/18 08:00 97.7 80 20 100/58 (72) 96 97.7 08/02/18 07:43 80 08/02/18 05:20 78 89/41 08/02/18 04:00 98.0 78 20 101/41 (61) 96 98.0 08/02/18 04:00 77 08/02/18 00:00 98.1 74 20 93/48 (63) 96 98.1 08/02/18 00:00 76 08/01/18 22:12 82 118/66 08/01/18 21:00 Room Air 08/01/18 20:00 81 08/01/18 19:55 97.0 82 21 118/66 (83) 98 97.0 08/01/18 16:00 79 08/01/18 16:00 98.8 93 22 151/114 (126) 98 98.8 08/01/18 14:00 82 96/54 08/01/18 12:00 98.4 82 20 96/54 (68) 98 98.4 08/01/18 11:49 80 Intake and Output 08/01/18 08/02/18 19:00 07:00 Intake Total 840 ml Output Total 600 ml Balance 240 ml Intake Oral 840 ml Output Urine Total 600 ml General Appearance: no acute distress HEENT: normocephalic, atraumatic Respiratory/Chest: chest wall non-tender, lungs clear Cardiovascular: normal peripheral pulses, normal rate Laboratory Tests 08/02/18 07:15: White Blood Count 15.8H, Red Blood Count 2.44L, Hemoglobin 7.9L, Hematocrit 23.8L, Mean Corpuscular Volume 98, Mean Corpuscular Hemoglobin 32.4H, Mean Corpuscular Hemoglobin Concent 33.1, Red Cell Distribution Width 21.2H, Platelet Count 64L, Mean Platelet Volume 11.6H, Neutrophils (%) (Auto) , Lymphocytes (%) (Auto) , Monocytes (%) (Auto) , Eosinophils (%) (Auto) , Basophils (%) (Auto) , Differential Total Cells Counted 100, Neutrophils % ( Manual) 78H, Lymphocytes % (Manual) 18L, Monocytes % (Manual) 2, Eosinophils % ( Manual) 0, Basophils % (Manual) 0, Band Neutrophils 2, Platelet Estimate DecreasedL, Platelet Morphology Normal, Anisocytosis 1+, Sodium Level 135L, Potassium Level 3.7, Chloride Level 105, Carbon Dioxide Level 22, Anion Gap 8, Blood Urea Nitrogen 13, Creatinine 0.7, Estimat Glomerular Filtration Rate > 60 , Glucose Level 91, Calcium Level 8.4L, Total Bilirubin 7.9H, Direct Bilirubin 5.6H, Aspartate Amino Transf (AST/SGOT) 272H, Alanine Aminotransferase (ALT/SGPT ) 98H, Alkaline Phosphatase 159H, Total Protein 6.0L, Albumin 1.4L, Globulin 4.6 , Albumin/Globulin Ratio 0.3L Current Medications Medications (Trade) Dose Ordered Sig/Abner Route PRN Reason Start Time Stop Time Status Last Admin Dose Admin Chlorhexidine Gluconate (Sierra-Hex 2%) 1 applic DAILY@2000 TOPIC 07/29/18 20:00 08/24/18 19:59 08/01/18 20:44 Fluconazole (Diflucan) 100 mg Q24H ORAL 07/31/18 15:00 08/07/18 14:59 08/01/18 16:51 Folic Acid (Folate) 1 mg DAILY ORAL 07/30/18 09:00 08/15/18 08:59 08/02/18 08:54 Lactulose (Cephulac) 30 gm DAILY ORAL 08/03/18 09:00 09/02/18 08:59 Linezolid (Zyvox) 600 mg EVERY 12 HOURS ORAL 08/01/18 09:00 08/06/18 08:59 08/02/18 08:54 Ondansetron HCl (Zofran) 4 mg Q4H PRN IVP Nausea & Vomiting 07/29/18 21:30 08/15/18 17:29 Pantoprazole (Protonix) 40 mg Q12HR ORAL 07/29/18 21:00 08/28/18 20:59 08/02/18 08:54 Propranolol HCl (Inderal) 10 mg Q8HR ORAL 07/29/18 22:00 08/26/18 13:59 08/01/18 22:12 Rifaximin (Xifaxan) 550 mg EVERY 12 HOURS ORAL 07/29/18 21:00 08/20/18 20:59 08/02/18 08:53 Bowen Choudhury MD Aug 02, 2018 11:43
[2018-08-02 12:00] VITALS: BP 92/50
[2018-08-02] MEDS: Fluconazole 100mg tab ORAL SCH (14:43)
[2018-08-02 16:00] VITALS: BP 95/57
[2018-08-02 20:00] VITALS: BP 103/62
[2018-08-02] MEDS: Dyna-Hex 2% Top Sol 2oz TOPIC SCH (20:17)
[2018-08-03] VITALS (7 sets, daily range): BP systolic 92–102; BP diastolic 48–62
[2018-08-03] MEDS: Propranolol 10mg tab ORAL SCH ×3 (06:00→22:00)
[2018-08-03 07:39] LABS: HEMATOCRIT 23.4 % (37.0-47.0); HEMOGLOBIN 7.5 G/DL (12.0-16.0); MEAN CORPUSCULAR VOLUME 100 FL (80-99); PLATELET COUNT 91 K/UL (150-450); RED BLOOD COUNT 2.33 M/UL (4.20-5.40); RED CELL DISTRIBUTION WIDTH 21.5 % (11.6-14.8); WHITE BLOOD COUNT 12.4 K/UL (4.8-10.8)
[2018-08-03 08:04] LABS: ALANINE AMINOTRANSFERASE 93 U/L (12-78); ALBUMIN 1.4 G/DL (3.4-5.0); ALBUMIN/GLOBULIN RATIO 0.3 (1.0-2.7); ALKALINE PHOSPHATASE 158 U/L (46-116); ANION GAP 8 mmol/L (5-15); ASPARTATE AMINO TRANSFERASE 259 U/L (15-37); BLOOD UREA NITROGEN 14 mg/dL (7-18); CALCIUM 8.2 MG/DL (8.5-10.1); CARBON DIOXIDE 22 MMOL/L (21-32); CHLORIDE 106 MMOL/L (98-107); CREATININE 0.8 MG/DL (0.55-1.30); POTASSIUM 3.6 MMOL/L (3.5-5.1); SODIUM 136 MMOL/L (136-145)
[2018-08-03 08:05] LABS: BILIRUBIN,DIRECT 4.3 MG/DL (0.0-0.3)
--- NOTE | 2018-08-03 08:26 | Nephrology Progress Note ---
Assessment/Plan Assessment/Plan A/P 1) Hypok+/Mg/Phos- corrected 2) Tranaminitis/liver failure/GI Bleed- per GI mgmt - s/p EGD with EBL - ?? re-EGD 3) Alcohol Abuse/Dependancy- thiamine and folate 4) GI Bleed- Mgmt per GI. PRN Bld Tx Hgb <7 5) Hypernatremia- resolved. 6) Leukocytosis- per ID 7) Edema- due to hypoalbuminemia low oncotic pressure Subjective Date patient seen: Aug 03, 2018 Time patient seen: 08:20 ROS Limited/Unobtainable: No Constitutional: Reports: weakness Allergies: Coded Allergies: LORAZEPAM (Verified Allergy, Unknown, 05/21/18) PENICILLINS (Verified Allergy, Unknown, 05/21/18) Subjective Patient improving and pending DC to LTAC Objective Last 24 Hour Vital Signs Date Time Temp Pulse Resp B/P (MAP) Pulse Ox O2 Delivery O2 Flow Rate FiO2 08/03/18 06:00 80 99/53 08/03/18 04:00 98.5 74 18 99/53 (68) 94 98.5 08/03/18 04:00 80 08/03/18 00:00 98.1 78 19 97/48 (64) 96 98.1 08/02/18 21:59 78 103/62 08/02/18 21:58 Room Air 08/02/18 20:00 98.1 78 17 103/62 (76) 94 98.1 08/02/18 20:00 78 08/02/18 16:00 97.8 77 20 95/57 (70) 100 97.8 08/02/18 15:25 79 08/02/18 14:00 79 92/50 08/02/18 12:00 98.0 79 20 92/50 (64) 98 98.0 08/02/18 11:40 80 Intake and Output 08/02/18 08/03/18 19:00 07:00 Intake Total 360 ml Output Total 1550 ml Balance -1190 ml Intake Oral 360 ml Output Urine Total 1550 ml # Voids 3 # Bowel Movements 1 3 Laboratory Tests 08/03/18 05:30: White Blood Count 12.4H, Red Blood Count 2.33L, Hemoglobin 7.5L, Hematocrit 23.4L, Mean Corpuscular Volume 100H, Mean Corpuscular Hemoglobin 32.1H, Mean Corpuscular Hemoglobin Concent 31.9L, Red Cell Distribution Width 21.5H, Platelet Count 91L, Mean Platelet Volume 11.4H, Neutrophils (%) (Auto) , Lymphocytes (%) (Auto) , Monocytes (%) (Auto) , Eosinophils (%) (Auto) , Basophils (%) (Auto) , Neutrophils % (Manual) [Pending], Lymphocytes % (Manual) [Pending], Platelet Estimate [Pending], Platelet Morphology [Pending], Sodium Level 136, Potassium Level 3.6, Chloride Level 106, Carbon Dioxide Level 22, Anion Gap 8, Blood Urea Nitrogen 14, Creatinine 0.8, Estimat Glomerular Filtration Rate > 60, Glucose Level 71L, Calcium Level 8.2L, Total Bilirubin 6.0H, Direct Bilirubin 4.3H, Aspartate Amino Transf (AST/SGOT) 259H, Alanine Aminotransferase (ALT/SGPT) 93H, Alkaline Phosphatase 158H, Total Protein 5.9L, Albumin 1.4L, Globulin 4.5, Albumin/Globulin Ratio 0.3L Height (Feet): 5 Height (Inches): 9.00 Weight (Pounds): 302 General Appearance: no apparent distress, alert EENT: normal ENT inspection Neck: normal alignment, supple Cardiovascular: normal rate, regular rhythm Respiratory/Chest: lungs clear, normal breath sounds Abdomen: non tender, soft, distended Edema: 2+ Arm (L), 2+ Arm (R), 2+ Leg (L), 2+ Leg (R), 2+ Pedal (L), 2+ Pedal ( R), 2+ Generalized Amos Pinon MD Aug 03, 2018 08:26
[2018-08-03] MEDS ORDERED: Lactulose 10gm/15ml UDC ORAL SCH ×2 (09:00)
[2018-08-03] MEDS: Fluconazole 100mg tab ORAL SCH (15:39)
--- NOTE | 2018-08-03 17:05 | General Progress Note ---
Assessment/Plan Assessment/Plan Assessment - EtOH cirrhosis - Esophageal varicies - UGIB - s/p EGD and EBL - Anemia Recommendations - psh po - OK to non monitor floor today from GI standpoint - monitor labs - replace lytes - OOB Subjective Allergies: Coded Allergies: LORAZEPAM (Verified Allergy, Unknown, 05/21/18) PENICILLINS (Verified Allergy, Unknown, 05/21/18) Subjective Feels better no abd pain H&H slightly lower d/w RN Objective Last 24 Hour Vital Signs Date Time Temp Pulse Resp B/P (MAP) Pulse Ox O2 Delivery O2 Flow Rate FiO2 08/03/18 16:00 97.5 74 20 100/58 (72) 100 97.5 08/03/18 14:23 97.3 78 20 100/61 (74) 100 97.3 08/03/18 14:00 78 96/58 08/03/18 12:00 96.9 78 18 96/58 (71) 100 96.9 08/03/18 11:49 77 08/03/18 08:20 Room Air 08/03/18 08:00 98.2 78 20 92/53 (66) 98 98.2 08/03/18 07:45 81 08/03/18 06:00 80 99/53 08/03/18 04:00 98.5 74 18 99/53 (68) 94 98.5 08/03/18 04:00 80 08/03/18 00:00 98.1 78 19 97/48 (64) 96 98.1 08/02/18 21:59 78 103/62 08/02/18 21:58 Room Air 08/02/18 20:00 98.1 78 17 103/62 (76) 94 98.1 08/02/18 20:00 78 Intake and Output 08/02/18 08/03/18 19:00 07:00 Intake Total 360 ml Output Total 1550 ml Balance -1190 ml Intake Oral 360 ml Output Urine Total 1550 ml # Voids 3 # Bowel Movements 1 3 Laboratory Tests 08/03/18 05:30: White Blood Count 12.4H, Red Blood Count 2.33L, Hemoglobin 7.5L, Hematocrit 23.4L, Mean Corpuscular Volume 100H, Mean Corpuscular Hemoglobin 32.1H, Mean Corpuscular Hemoglobin Concent 31.9L, Red Cell Distribution Width 21.5H, Platelet Count 91L, Mean Platelet Volume 11.4H, Neutrophils (%) (Auto) , Lymphocytes (%) (Auto) , Monocytes (%) (Auto) , Eosinophils (%) (Auto) , Basophils (%) (Auto) , Differential Total Cells Counted 100, Neutrophils % ( Manual) 71, Lymphocytes % (Manual) 17L, Monocytes % (Manual) 9, Eosinophils % ( Manual) 3, Basophils % (Manual) 0, Band Neutrophils 0, Platelet Estimate DecreasedL, Platelet Morphology Normal, Anisocytosis 2+, Macrocytosis 1+, Sodium Level 136, Potassium Level 3.6, Chloride Level 106, Carbon Dioxide Level 22, Anion Gap 8, Blood Urea Nitrogen 14, Creatinine 0.8, Estimat Glomerular Filtration Rate > 60, Glucose Level 71L, Calcium Level 8.2L, Total Bilirubin 6.0H, Direct Bilirubin 4.3H, Aspartate Amino Transf (AST/SGOT) 259H, Alanine Aminotransferase (ALT/SGPT) 93H, Alkaline Phosphatase 158H, Total Protein 5.9L, Albumin 1.4L, Globulin 4.5, Albumin/Globulin Ratio 0.3L Height (Feet): 5 Height (Inches): 9.00 Weight (Pounds): 302 Objective WDWN AA woman NCAT supple CTA RR soft ND NT (+) edema Carlos Sandhu MD Aug 03, 2018 17:05
[2018-08-04] VITALS: BP 99/46
[2018-08-04 04:00] VITALS: BP_SYST 103; BP_SYST 177; BP_DIAS 59; BP_DIAS 83
[2018-08-04] MEDS: Propranolol 10mg tab ORAL SCH ×3 (05:14→22:00)
[2018-08-04 06:23] LABS: HEMATOCRIT 23.1 % (37.0-47.0); HEMOGLOBIN 7.5 G/DL (12.0-16.0); MEAN CORPUSCULAR VOLUME 101 FL (80-99); PLATELET COUNT 90 K/UL (150-450); RED BLOOD COUNT 2.28 M/UL (4.20-5.40); RED CELL DISTRIBUTION WIDTH 21.8 % (11.6-14.8); WHITE BLOOD COUNT 11.1 K/UL (4.8-10.8)
[2018-08-04 06:37] LABS: ANION GAP 7 mmol/L (5-15); BLOOD UREA NITROGEN 15 mg/dL (7-18); CALCIUM 8.5 MG/DL (8.5-10.1); CARBON DIOXIDE 23 MMOL/L (21-32); CHLORIDE 105 MMOL/L (98-107); CREATININE 0.7 MG/DL (0.55-1.30); POTASSIUM 3.8 MMOL/L (3.5-5.1); SODIUM 135 MMOL/L (136-145)
[2018-08-04 08:00] VITALS: BP 99/58
--- NOTE | 2018-08-04 09:40 | Nephrology Progress Note ---
Assessment/Plan Assessment/Plan A/P 1) Hypok+/Mg/Phos- resolved. OK for DC 2) Tranaminitis/liver failure/GI Bleed- per GI mgmt - s/p EGD with EBL - Hgb 7.5 3) Alcohol Abuse/Dependancy- thiamine and folate 4) GI Bleed- Mgmt per GI. PRN Bld Tx Hgb <7 5) Edema- due to hypoalbuminemia low oncotic pressure Subjective Date patient seen: Aug 04, 2018 Time patient seen: 09:38 ROS Limited/Unobtainable: No Constitutional: Reports: weakness Allergies: Coded Allergies: LORAZEPAM (Verified Allergy, Unknown, 05/21/18) PENICILLINS (Verified Allergy, Unknown, 05/21/18) Subjective Patient improving and pending DC to LTAC. NH declined due to anemia Objective Last 24 Hour Vital Signs Date Time Temp Pulse Resp B/P (MAP) Pulse Ox O2 Delivery O2 Flow Rate FiO2 08/04/18 09:00 Room Air 08/04/18 08:00 97.7 72 12 99/58 (72) 98 97.7 08/04/18 05:14 78 103/59 08/04/18 04:00 97.5 78 18 103/59 (74) 98 97.5 08/04/18 00:00 97.7 75 17 99/46 (63) 99 97.7 08/03/18 22:00 79 102/62 08/03/18 21:00 Room Air 08/03/18 20:00 97.9 79 16 102/62 (75) 97 97.9 08/03/18 16:00 97.5 74 20 100/58 (72) 100 97.5 08/03/18 14:23 97.3 78 20 100/61 (74) 100 97.3 08/03/18 14:00 78 96/58 08/03/18 12:00 96.9 78 18 96/58 (71) 100 96.9 08/03/18 11:49 77 Intake and Output 08/03/18 08/04/18 19:00 07:00 Intake Total 480 ml Balance 480 ml Intake Oral 480 ml # Voids 4 3 # Bowel Movements 2 1 Laboratory Tests 08/04/18 05:00: White Blood Count 11.1H, Red Blood Count 2.28L, Hemoglobin 7.5L, Hematocrit 23.1L, Mean Corpuscular Volume 101H, Mean Corpuscular Hemoglobin 32.9H, Mean Corpuscular Hemoglobin Concent 32.5, Red Cell Distribution Width 21.8H, Platelet Count 90L, Mean Platelet Volume 11.4H, Neutrophils (%) (Auto) , Lymphocytes (%) (Auto) , Monocytes (%) (Auto) , Eosinophils (%) (Auto) , Basophils (%) (Auto) , Differential Total Cells Counted 100, Neutrophils % ( Manual) 79H, Lymphocytes % (Manual) 14L, Monocytes % (Manual) 7, Eosinophils % ( Manual) 0, Basophils % (Manual) 0, Band Neutrophils 0, Platelet Estimate DecreasedL, Platelet Morphology Normal, Hypochromasia 1+, Anisocytosis 2+, Macrocytosis 1+, Sodium Level 135L, Potassium Level 3.8, Chloride Level 105, Carbon Dioxide Level 23, Anion Gap 7, Blood Urea Nitrogen 15, Creatinine 0.7, Estimat Glomerular Filtration Rate > 60, Glucose Level 73L, Calcium Level 8.5 Height (Feet): 5 Height (Inches): 9.00 Weight (Pounds): 293 General Appearance: no apparent distress, alert EENT: normal ENT inspection Neck: normal alignment, supple Cardiovascular: normal rate, regular rhythm Respiratory/Chest: lungs clear, normal breath sounds Abdomen: non tender, soft Edema: 1+ Arm (L), 1+ Arm (R), 1+ Leg (L), 1+ Leg (R), 1+ Pedal (L), 1+ Pedal ( R), 1+ Generalized Amos Pinon MD Aug 04, 2018 09:40
--- NOTE | 2018-08-04 09:54 | Pulmonology Progress Note ---
Assessment/Plan Assessment/Plan 1. Malnutrition. 2. Hepatic failure. Slowly improving; T.Tye better. 3. Suspicion of alcohol abuse. AST/ALT ratio very suggestive 4. Severe hypokalemia. Corrected. 5. Hyperglycemia. Resolved. 6. Leukocytosis. improved 7. Anemia. 8. GI bleed 9. Pneumonia 10. Diarrhea; Off lactulose; on PO Vanco + Rifaximin DISCUSSION: 1. Anemia. S/p GI bleed; S/p EGD and banding. I will monitor hemoglobin and follow recs by GI. Transfused per GI. 2. Hypokalemia, severe. Now corrected. 3. Suspicion of alcohol abuse. There is no clear history of alcohol; however, the AST/ALT ratio is suggestive of it. Mother was reporting she was consuming alcohol. Continue thiamine and folic acid. 4. Hepatic failure. This is apparently a chronic problem. Seen by Gastroenterology to assist in this matter. I will also continue lactulose. WIll decrease Lactulose given diarrhea. Continue Rifaximin. Discussed with ID PO Vanco CXR reviewed I will follow carefully. Dc planning to subacute vs snf vs home PT OT eval Dc rectal tube Subjective Interval Events: Overall better Constitutional: Reports: no symptoms HEENT: Repors: no symptoms Respiratory: Reports: no symptoms Cardiovascular: Reports: no symptoms Gastrointestinal/Abdominal: Reports: diarrhea Genitourinary: Reports: no symptoms Neurologic: Reports: no symptoms Allergies: Coded Allergies: LORAZEPAM (Verified Allergy, Unknown, 05/21/18) PENICILLINS (Verified Allergy, Unknown, 05/21/18) Objective Last 24 Hour Vital Signs Date Time Temp Pulse Resp B/P (MAP) Pulse Ox O2 Delivery O2 Flow Rate FiO2 08/04/18 09:00 Room Air 08/04/18 08:00 97.7 72 12 99/58 (72) 98 97.7 08/04/18 05:14 78 103/59 08/04/18 04:00 97.5 78 18 103/59 (74) 98 97.5 08/04/18 00:00 97.7 75 17 99/46 (63) 99 97.7 08/03/18 22:00 79 102/62 08/03/18 21:00 Room Air 08/03/18 20:00 97.9 79 16 102/62 (75) 97 97.9 08/03/18 16:00 97.5 74 20 100/58 (72) 100 97.5 08/03/18 14:23 97.3 78 20 100/61 (74) 100 97.3 08/03/18 14:00 78 96/58 08/03/18 12:00 96.9 78 18 96/58 (71) 100 96.9 08/03/18 11:49 77 Intake and Output 08/03/18 08/04/18 19:00 07:00 Intake Total 480 ml Balance 480 ml Intake Oral 480 ml # Voids 4 3 # Bowel Movements 2 1 General Appearance: no acute distress HEENT: normocephalic Respiratory/Chest: chest wall non-tender, lungs clear Cardiovascular: normal peripheral pulses, normal rate Laboratory Tests 08/04/18 05:00: White Blood Count 11.1H, Red Blood Count 2.28L, Hemoglobin 7.5L, Hematocrit 23.1L, Mean Corpuscular Volume 101H, Mean Corpuscular Hemoglobin 32.9H, Mean Corpuscular Hemoglobin Concent 32.5, Red Cell Distribution Width 21.8H, Platelet Count 90L, Mean Platelet Volume 11.4H, Neutrophils (%) (Auto) , Lymphocytes (%) (Auto) , Monocytes (%) (Auto) , Eosinophils (%) (Auto) , Basophils (%) (Auto) , Differential Total Cells Counted 100, Neutrophils % ( Manual) 79H, Lymphocytes % (Manual) 14L, Monocytes % (Manual) 7, Eosinophils % ( Manual) 0, Basophils % (Manual) 0, Band Neutrophils 0, Platelet Estimate DecreasedL, Platelet Morphology Normal, Hypochromasia 1+, Anisocytosis 2+, Macrocytosis 1+, Sodium Level 135L, Potassium Level 3.8, Chloride Level 105, Carbon Dioxide Level 23, Anion Gap 7, Blood Urea Nitrogen 15, Creatinine 0.7, Estimat Glomerular Filtration Rate > 60, Glucose Level 73L, Calcium Level 8.5 Current Medications Medications (Trade) Dose Ordered Sig/Abner Route PRN Reason Start Time Stop Time Status Last Admin Dose Admin Diphenhydramine HCl (Benadryl) 25 mg Q6H PRN ORAL Itching 08/03/18 17:45 09/02/18 11:44 Fluconazole (Diflucan) 100 mg Q24H ORAL 08/04/18 15:00 08/07/18 14:59 Folic Acid (Folate) 1 mg DAILY ORAL 08/04/18 09:00 08/15/18 08:59 08/04/18 09:15 Linezolid (Zyvox) 600 mg EVERY 12 HOURS ORAL 08/03/18 21:00 08/06/18 08:59 08/04/18 09:15 Ondansetron HCl (Zofran) 4 mg Q4H PRN IVP Nausea & Vomiting 08/03/18 17:30 08/15/18 17:29 Pantoprazole (Protonix) 40 mg Q12HR ORAL 08/03/18 21:00 08/28/18 20:59 08/04/18 09:15 Propranolol HCl (Inderal) 10 mg Q8HR ORAL 08/03/18 22:00 08/26/18 13:59 Rifaximin (Xifaxan) 550 mg EVERY 12 HOURS ORAL 08/03/18 21:00 08/20/18 20:59 08/04/18 09:14 Bowen Choudhury MD Aug 04, 2018 09:54
--- NOTE | 2018-08-04 11:39 | Infectious Diseases Prog Note ---
Assessment/Plan Assessment/Plan A 1. pneumonia 2. leucocytosis 3. cirrhosis 4. hepatic encephalopathy improving 5. anemia 6. thrombocytopenia 7. Hypernatremia 8. Catheter related blood stream infection P Continue Linezolid & Fluconazole X 2 days Subjective ROS Limited/Unobtainable: No Constitutional: Reports: no symptoms Respiratory: Reports: no symptoms Cardiovascular: Reports: no symptoms Gastrointestinal/Abdominal: Reports: no symptoms Genitourinary: Reports: no symptoms Skin: Reports: other - itching Allergies: Coded Allergies: LORAZEPAM (Verified Allergy, Unknown, 05/21/18) PENICILLINS (Verified Allergy, Unknown, 05/21/18) Objective Vital Signs Last 24 Hour Vital Signs Date Time Temp Pulse Resp B/P (MAP) Pulse Ox O2 Delivery O2 Flow Rate FiO2 08/04/18 09:00 Room Air 08/04/18 08:00 97.7 72 12 99/58 (72) 98 97.7 08/04/18 05:14 78 103/59 08/04/18 04:00 97.5 78 18 103/59 (74) 98 97.5 08/04/18 00:00 97.7 75 17 99/46 (63) 99 97.7 08/03/18 22:00 79 102/62 08/03/18 21:00 Room Air 08/03/18 20:00 97.9 79 16 102/62 (75) 97 97.9 08/03/18 16:00 97.5 74 20 100/58 (72) 100 97.5 08/03/18 14:23 97.3 78 20 100/61 (74) 100 97.3 08/03/18 14:00 78 96/58 08/03/18 12:00 96.9 78 18 96/58 (71) 100 96.9 08/03/18 11:49 77 Height (Feet): 5 Height (Inches): 9.00 Weight (Pounds): 293 General Appearance: no acute distress HEENT: other - yellowish sclera Respiratory/Chest: lungs clear Cardiovascular: normal rate Abdomen: soft, non tender Extremities: other - edema of legs Neurologic/Psychiatric: alert, oriented x 3, responsive Laboratory Tests Test 08/04/18 05:00 White Blood Count 11.1 K/UL (4.8-10.8) H Red Blood Count 2.28 M/UL (4.20-5.40) L Hemoglobin 7.5 G/DL (12.0-16.0) L Hematocrit 23.1 % (37.0-47.0) L Mean Corpuscular Volume 101 FL (80-99) H Mean Corpuscular Hemoglobin 32.9 PG (27.0-31.0) H Mean Corpuscular Hemoglobin Concent 32.5 G/DL (32.0-36.0) Red Cell Distribution Width 21.8 % (11.6-14.8) H Platelet Count 90 K/UL (150-450) L Mean Platelet Volume 11.4 FL (6.5-10.1) H Neutrophils (%) (Auto) % (45.0-75.0) Lymphocytes (%) (Auto) % (20.0-45.0) Monocytes (%) (Auto) % (1.0-10.0) Eosinophils (%) (Auto) % (0.0-3.0) Basophils (%) (Auto) % (0.0-2.0) Differential Total Cells Counted 100 Neutrophils % (Manual) 79 % (45-75) H Lymphocytes % (Manual) 14 % (20-45) L Monocytes % (Manual) 7 % (1-10) Eosinophils % (Manual) 0 % (0-3) Basophils % (Manual) 0 % (0-2) Band Neutrophils 0 % (0-8) Platelet Estimate Decreased L Platelet Morphology Normal Hypochromasia 1+ Anisocytosis 2+ Macrocytosis 1+ Sodium Level 135 MMOL/L (136-145) L Potassium Level 3.8 MMOL/L (3.5-5.1) Chloride Level 105 MMOL/L (98-107) Carbon Dioxide Level 23 MMOL/L (21-32) Anion Gap 7 mmol/L (5-15) Blood Urea Nitrogen 15 mg/dL (7-18) Creatinine 0.7 MG/DL (0.55-1.30) Estimat Glomerular Filtration Rate > 60 mL/min (>60) Glucose Level 73 MG/DL (74-106) L Calcium Level 8.5 MG/DL (8.5-10.1) Current Medications Medications (Trade) Dose Ordered Sig/Abner Route PRN Reason Start Time Stop Time Status Last Admin Dose Admin Diphenhydramine HCl (Benadryl) 25 mg Q6H PRN ORAL Itching 08/03/18 17:45 09/02/18 11:44 Fluconazole (Diflucan) 100 mg Q24H ORAL 08/04/18 15:00 08/07/18 14:59 Folic Acid (Folate) 1 mg DAILY ORAL 08/04/18 09:00 08/15/18 08:59 08/04/18 09:15 Linezolid (Zyvox) 600 mg EVERY 12 HOURS ORAL 08/03/18 21:00 08/06/18 08:59 08/04/18 09:15 Ondansetron HCl (Zofran) 4 mg Q4H PRN IVP Nausea & Vomiting 08/03/18 17:30 08/15/18 17:29 Pantoprazole (Protonix) 40 mg Q12HR ORAL 08/03/18 21:00 08/28/18 20:59 08/04/18 09:15 Propranolol HCl (Inderal) 10 mg Q8HR ORAL 08/03/18 22:00 08/26/18 13:59 Rifaximin (Xifaxan) 550 mg EVERY 12 HOURS ORAL 08/03/18 21:00 08/20/18 20:59 08/04/18 09:14 Damian Ly MD Aug 04, 2018 11:39
[2018-08-04 11:47] VITALS: BP 102/58
[2018-08-04] MEDS ORDERED: Fluconazole 100mg tab ORAL SCH (15:00)
[2018-08-04 15:58] VITALS: BP 95/58
--- NOTE | 2018-08-04 17:24 | General Progress Note ---
Assessment/Plan Assessment/Plan Assessment - EtOH cirrhosis - Esophageal varicies - UGIB - s/p EGD and EBL - Anemia Recommendations - push po - monitor labs - replace lytes - OOB Subjective Allergies: Coded Allergies: LORAZEPAM (Verified Allergy, Unknown, 05/21/18) PENICILLINS (Verified Allergy, Unknown, 05/21/18) Subjective Feels better no abd pain tolerating PO Objective Last 24 Hour Vital Signs Date Time Temp Pulse Resp B/P (MAP) Pulse Ox O2 Delivery O2 Flow Rate FiO2 08/04/18 15:58 97.7 67 16 95/58 (70) 100 97.7 08/04/18 14:00 77 104/61 08/04/18 11:47 97.5 77 19 102/58 (73) 100 97.5 08/04/18 09:00 Room Air 08/04/18 08:00 97.7 72 12 99/58 (72) 98 97.7 08/04/18 05:14 78 103/59 08/04/18 04:00 97.5 78 18 103/59 (74) 98 97.5 08/04/18 00:00 97.7 75 17 99/46 (63) 99 97.7 08/03/18 22:00 79 102/62 08/03/18 21:00 Room Air 08/03/18 20:00 97.9 79 16 102/62 (75) 97 97.9 Intake and Output 08/03/18 08/04/18 19:00 07:00 Intake Total 480 ml Balance 480 ml Intake Oral 480 ml # Voids 4 3 # Bowel Movements 2 1 Laboratory Tests 08/04/18 05:00: White Blood Count 11.1H, Red Blood Count 2.28L, Hemoglobin 7.5L, Hematocrit 23.1L, Mean Corpuscular Volume 101H, Mean Corpuscular Hemoglobin 32.9H, Mean Corpuscular Hemoglobin Concent 32.5, Red Cell Distribution Width 21.8H, Platelet Count 90L, Mean Platelet Volume 11.4H, Neutrophils (%) (Auto) , Lymphocytes (%) (Auto) , Monocytes (%) (Auto) , Eosinophils (%) (Auto) , Basophils (%) (Auto) , Differential Total Cells Counted 100, Neutrophils % ( Manual) 79H, Lymphocytes % (Manual) 14L, Monocytes % (Manual) 7, Eosinophils % ( Manual) 0, Basophils % (Manual) 0, Band Neutrophils 0, Platelet Estimate DecreasedL, Platelet Morphology Normal, Hypochromasia 1+, Anisocytosis 2+, Macrocytosis 1+, Sodium Level 135L, Potassium Level 3.8, Chloride Level 105, Carbon Dioxide Level 23, Anion Gap 7, Blood Urea Nitrogen 15, Creatinine 0.7, Estimat Glomerular Filtration Rate > 60, Glucose Level 73L, Calcium Level 8.5 Height (Feet): 5 Height (Inches): 9.00 Weight (Pounds): 293 Objective WDWN AA woman NCAT supple CTA RR soft ND NT (+) edema Carlos Sandhu MD Aug 04, 2018 17:24
[2018-08-04 20:00] VITALS: BP 100/60
[2018-08-05 04:00] VITALS: BP 94/47
[2018-08-05] MEDS: Propranolol 10mg tab ORAL SCH (05:14)
[2018-08-05 07:27] LABS: HEMATOCRIT 22.8 % (37.0-47.0); HEMOGLOBIN 7.3 G/DL (12.0-16.0); MEAN CORPUSCULAR VOLUME 102 FL (80-99); PLATELET COUNT 94 K/UL (150-450); RED BLOOD COUNT 2.23 M/UL (4.20-5.40); RED CELL DISTRIBUTION WIDTH 21.6 % (11.6-14.8); WHITE BLOOD COUNT 10.5 K/UL (4.8-10.8)
[2018-08-05 07:37] LABS: ALANINE AMINOTRANSFERASE 93 U/L (12-78); ALBUMIN 1.4 G/DL (3.4-5.0); ALBUMIN/GLOBULIN RATIO 0.3 (1.0-2.7); ALKALINE PHOSPHATASE 161 U/L (46-116); ANION GAP 7 mmol/L (5-15); ASPARTATE AMINO TRANSFERASE 239 U/L (15-37); BILIRUBIN,TOTAL 5.3 MG/DL (0.2-1.0); BLOOD UREA NITROGEN 14 mg/dL (7-18); CALCIUM 8.2 MG/DL (8.5-10.1); CARBON DIOXIDE 22 MMOL/L (21-32); CHLORIDE 104 MMOL/L (98-107); CREATININE 0.8 MG/DL (0.55-1.30); POTASSIUM 3.9 MMOL/L (3.5-5.1); SODIUM 133 MMOL/L (136-145)
[2018-08-05 07:38] LABS: BILIRUBIN,DIRECT 3.8 MG/DL (0.0-0.3)
[2018-08-05 08:00] VITALS: BP 100/60
--- NOTE | 2018-08-05 09:31 | Pulmonology Progress Note ---
Assessment/Plan Assessment/Plan 1. Malnutrition. 2. Hepatic failure. Slowly improving; T.Tye better. 3. Suspicion of alcohol abuse. AST/ALT ratio very suggestive 4. Severe hypokalemia. Corrected. 5. Hyperglycemia. Resolved. 6. Leukocytosis. improved 7. Anemia. 8. GI bleed 9. Pneumonia 10. Diarrhea; Off lactulose; on PO Vanco + Rifaximin DISCUSSION: 1. Anemia. S/p GI bleed; S/p EGD and banding. I will monitor hemoglobin and follow recs by GI. Transfused per GI. 2. Hypokalemia, severe. Now corrected. 3. Suspicion of alcohol abuse. There is no clear history of alcohol; however, the AST/ALT ratio is suggestive of it. Mother was reporting she was consuming alcohol. Continue thiamine and folic acid. 4. Hepatic failure. This is apparently a chronic problem. Seen by Gastroenterology to assist in this matter. I will also continue lactulose. WIll decrease Lactulose given diarrhea. Continue Rifaximin. Discussed with ID PO Vanco CXR reviewed I will follow carefully. Dc planning to subacute vs snf vs home PT OT eval Off rectal tube Subjective Interval Events: Much improved Constitutional: Reports: no symptoms HEENT: Repors: no symptoms Respiratory: Reports: no symptoms Cardiovascular: Reports: no symptoms Gastrointestinal/Abdominal: Reports: diarrhea Genitourinary: Reports: no symptoms Neurologic: Reports: no symptoms Psychiatric: Reports: no symptoms Allergies: Coded Allergies: LORAZEPAM (Verified Allergy, Unknown, 05/21/18) PENICILLINS (Verified Allergy, Unknown, 05/21/18) Objective Last 24 Hour Vital Signs Date Time Temp Pulse Resp B/P (MAP) Pulse Ox O2 Delivery O2 Flow Rate FiO2 08/05/18 08:00 97.9 81 19 100/60 (73) 99 97.9 08/05/18 05:14 81 94/47 08/05/18 04:00 97.6 81 19 94/47 (63) 99 97.6 08/04/18 22:00 81 100/60 08/04/18 21:00 Room Air 08/04/18 20:00 98.2 81 18 100/60 (73) 97 98.2 08/04/18 15:58 97.7 67 16 95/58 (70) 100 97.7 08/04/18 14:00 77 104/61 08/04/18 11:47 97.5 77 19 102/58 (73) 100 97.5 Intake and Output 08/04/18 08/05/18 19:00 07:00 Intake Total 450 ml 360 ml Balance 450 ml 360 ml Intake Oral 360 ml Other 450 ml # Voids 3 2 # Bowel Movements 2 1 General Appearance: no acute distress HEENT: normocephalic Respiratory/Chest: chest wall non-tender, lungs clear Cardiovascular: normal peripheral pulses, normal rate Abdomen: normal bowel sounds, soft, non tender Laboratory Tests 08/05/18 05:30: White Blood Count 10.5, Red Blood Count 2.23L, Hemoglobin 7.3L, Hematocrit 22.8L , Mean Corpuscular Volume 102H, Mean Corpuscular Hemoglobin 32.7H, Mean Corpuscular Hemoglobin Concent 32.0, Red Cell Distribution Width 21.6H, Platelet Count 94L, Mean Platelet Volume 10.8H, Neutrophils (%) (Auto) , Lymphocytes (%) (Auto) , Monocytes (%) (Auto) , Eosinophils (%) (Auto) , Basophils (%) (Auto) , Neutrophils % (Manual) [Pending], Lymphocytes % (Manual) [Pending], Platelet Estimate [Pending], Platelet Morphology [Pending], Sodium Level 133L, Potassium Level 3.9, Chloride Level 104, Carbon Dioxide Level 22, Anion Gap 7, Blood Urea Nitrogen 14, Creatinine 0.8, Estimat Glomerular Filtration Rate > 60, Glucose Level 95, Calcium Level 8.2L, Total Bilirubin 5.3H , Direct Bilirubin 3.8H, Aspartate Amino Transf (AST/SGOT) 239H, Alanine Aminotransferase (ALT/SGPT) 93H, Alkaline Phosphatase 161H, Total Protein 6.3L, Albumin 1.4L, Globulin 4.9, Albumin/Globulin Ratio 0.3L Current Medications Medications (Trade) Dose Ordered Sig/Abner Route PRN Reason Start Time Stop Time Status Last Admin Dose Admin Diphenhydramine HCl (Benadryl) 25 mg Q6H PRN ORAL Itching 08/03/18 17:45 09/02/18 11:44 Fluconazole (Diflucan) 100 mg Q24H ORAL 08/04/18 15:00 08/07/18 14:59 08/04/18 14:35 Folic Acid (Folate) 1 mg DAILY ORAL 08/04/18 09:00 08/15/18 08:59 08/04/18 09:15 Linezolid (Zyvox) 600 mg EVERY 12 HOURS ORAL 08/03/18 21:00 08/06/18 08:59 08/04/18 09:15 Ondansetron HCl (Zofran) 4 mg Q4H PRN IVP Nausea & Vomiting 08/03/18 17:30 08/15/18 17:29 Pantoprazole (Protonix) 40 mg Q12HR ORAL 08/03/18 21:00 08/28/18 20:59 08/04/18 09:15 Propranolol HCl (Inderal) 10 mg Q8HR ORAL 08/03/18 22:00 08/26/18 13:59 Rifaximin (Xifaxan) 550 mg EVERY 12 HOURS ORAL 08/03/18 21:00 08/20/18 20:59 08/04/18 09:14 Bowen Choudhury MD Aug 05, 2018 09:31
[2018-08-05] MEDS ORDERED: DIFLUCAN100 MG ORAL (09:33)
[2018-08-05] MEDS ORDERED: XIFAXAN550 MG ORAL (09:33)
[2018-08-05] MEDS ORDERED: ZYVOX600 MG ORAL (09:33)
[2018-08-05] MEDS ORDERED: FOLIC ACID1 MG ORAL (09:33)
[2018-08-05] MEDS ORDERED: PROPRANOLOL HCL10 MG ORAL (09:33)
[2018-08-05] MEDS ORDERED: PROTONIX40 MG ORAL (09:33)
--- NOTE | 2018-08-05 11:19 | Infectious Diseases Prog Note ---
"Assessment/Plan Assessment/Plan antibiotics : linezolid, fluconazole, rifaximin A 1. pneumonia s/p rx 2. leucocytosis improving 3. cirrhosis 4. hepatic encephalopathy 5. anemia 6. 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 VRE | fungal catheter infection s/p removal P 1. continue po linezolid, fluconazole 1 more day, patient has been refusing linezolid 2. will follow up cultures Subjective ROS Limited/Unobtainable: Yes Allergies: Coded Allergies: LORAZEPAM (Verified Allergy, Unknown, 05/21/18) PENICILLINS (Verified Allergy, Unknown, 05/21/18) Objective Vital Signs Last 24 Hour Vital Signs Date Time Temp Pulse Resp B/P (MAP) Pulse Ox O2 Delivery O2 Flow Rate FiO2 08/05/18 10:00 Room Air 08/05/18 08:00 97.9 81 19 100/60 (73) 99 97.9 08/05/18 05:14 81 94/47 08/05/18 04:00 97.6 81 19 94/47 (63) 99 97.6 08/04/18 22:00 81 100/60 08/04/18 21:00 Room Air 08/04/18 20:00 98.2 81 18 100/60 (73) 97 98.2 08/04/18 15:58 97.7 67 16 95/58 (70) 100 97.7 08/04/18 14:00 77 104/61 08/04/18 11:47 97.5 77 19 102/58 (73) 100 97.5 Height (Feet): 5 Height (Inches): 9.00 Weight (Pounds): 271 Respiratory/Chest: lungs clear Cardiovascular: normal rate, regular rhythm, no gallop/murmur Abdomen: soft, non tender Extremities: other - + edema Laboratory Tests Test 08/05/18 05:30 White Blood Count 10.5 K/UL (4.8-10.8) Red Blood Count 2.23 M/UL (4.20-5.40) L Hemoglobin 7.3 G/DL (12.0-16.0) L Hematocrit 22.8 % (37.0-47.0) L Mean Corpuscular Volume 102 FL (80-99) H Mean Corpuscular Hemoglobin 32.7 PG (27.0-31.0) H Mean Corpuscular Hemoglobin Concent 32.0 G/DL (32.0-36.0) Red Cell Distribution Width 21.6 % (11.6-14.8) H Platelet Count 94 K/UL (150-450) L Mean Platelet Volume 10.8 FL (6.5-10.1) H Neutrophils (%) (Auto) % (45.0-75.0) Lymphocytes (%) (Auto) % (20.0-45.0) Monocytes (%) (Auto) % (1.0-10.0) Eosinophils (%) (Auto) % (0.0-3.0) Basophils (%) (Auto) % (0.0-2.0) Differential Total Cells Counted 100 Neutrophils % (Manual) 75 % (45-75) Lymphocytes % (Manual) 17 % (20-45) L Monocytes % (Manual) 4 % (1-10) Eosinophils % (Manual) 1 % (0-3) Basophils % (Manual) 0 % (0-2) Band Neutrophils 3 % (0-8) Platelet Estimate Decreased L Platelet Morphology Normal Red Blood Cell Morphology Normal Sodium Level 133 MMOL/L (136-145) L Potassium Level 3.9 MMOL/L (3.5-5.1) Chloride Level 104 MMOL/L (98-107) Carbon Dioxide Level 22 MMOL/L (21-32) Anion Gap 7 mmol/L (5-15) Blood Urea Nitrogen 14 mg/dL (7-18) Creatinine 0.8 MG/DL (0.55-1.30) Estimat Glomerular Filtration Rate > 60 mL/min (>60) Glucose Level 95 MG/DL (74-106) Calcium Level 8.2 MG/DL (8.5-10.1) L Total Bilirubin 5.3 MG/DL (0.2-1.0) H Direct Bilirubin 3.8 MG/DL (0.0-0.3) H Aspartate Amino Transf (AST/SGOT) 239 U/L (15-37) H Alanine Aminotransferase (ALT/SGPT) 93 U/L (12-78) H Alkaline Phosphatase 161 U/L (46-116) H Total Protein 6.3 G/DL (6.4-8.2) L Albumin 1.4 G/DL (3.4-5.0) L Globulin 4.9 g/dL Albumin/Globulin Ratio 0.3 (1.0-2.7) L Current Medications Medications (Trade) Dose Ordered Sig/Abner Route PRN Reason Start Time Stop Time Status Last Admin Dose Admin Diphenhydramine HCl (Benadryl) 25 mg Q6H PRN ORAL Itching 08/03/18 17:45 09/02/18 11:44 Fluconazole (Diflucan) 100 mg Q24H ORAL 08/04/18 15:00 08/07/18 14:59 08/04/18 14:35 Folic Acid (Folate) 1 mg DAILY ORAL 08/04/18 09:00 08/15/18 08:59 08/04/18 09:15 Linezolid (Zyvox) 600 mg EVERY 12 HOURS ORAL 08/03/18 21:00 08/06/18 08:59 08/04/18 09:15 Ondansetron HCl (Zofran) 4 mg Q4H PRN IVP Nausea & Vomiting 08/03/18 17:30 08/15/18 17:29 Pantoprazole (Protonix) 40 mg Q12HR ORAL 08/03/18 21:00 08/28/18 20:59 08/04/18 09:15 Propranolol HCl (Inderal) 10 mg Q8HR ORAL 08/03/18 22:00 08/26/18 13:59 Rifaximin (Xifaxan) 550 mg EVERY 12 HOURS ORAL 08/03/18 21:00 08/20/18 20:59 08/04/18 09:14 BENITO WATT Aug 05, 2018 11:18"
--- NOTE | 2018-08-05 11:29 | GI Progress Note ---
Assessment/Plan Problems: (1) Liver failure ICD Codes: K72.90 - Hepatic failure, unspecified without coma SNOMED: 68913594 Qualifiers: Qualified Codes: K72.01 - Acute and subacute hepatic failure with coma (2) Altered level of consciousness ICD Codes: R40.4 - Transient alteration of awareness SNOMED: 8552188 (3) GI bleed ICD Codes: K92.2 - Gastrointestinal hemorrhage, unspecified SNOMED: 83222855 Qualifiers: Qualified Codes: K92.2 - Gastrointestinal hemorrhage, unspecified (4) Hypokalemia ICD Codes: E87.6 - Hypokalemia SNOMED: 20686943 (5) Hepatic encephalopathy ICD Codes: K72.90 - Hepatic failure, unspecified without coma SNOMED: 93488065 (6) Anemia ICD Codes: D64.9 - Anemia, unspecified SNOMED: 748665452 Qualifiers: Qualified Codes: D64.9 - Anemia, unspecified Status: stable, unchanged Status Narrative Discussed with Dr. Rodriguez. Assessment/Plan Assessment - EtOH cirrhosis - Esophageal varicies - UGIB - s/p EGD and EBL - Anemia - paracentesis >> cytology negative for malignancy Recommendations - supportive care - DO NOT reinsert NGT, can cause rebleed. - diet per ST, push PO - ppi BID - monitor labs - replace lytes - propanolol 10 mg TID for portal HTN, hold if SBP < 90. - needs to be on maintenance lactulose - PT evaluation -repeat labs in am The patient was seen and examined at bedside and all new and available data was reviewed in the patients chart. I agree with the above findings, impression and plan. (Patient seen earlier today. Signature stamp does not reflect patient encounter time.). - Christopher Rodriguez MD Subjective Subjective overall feels better Objective Last 24 Hour Vital Signs Date Time Temp Pulse Resp B/P (MAP) Pulse Ox O2 Delivery O2 Flow Rate FiO2 08/05/18 10:00 Room Air 08/05/18 08:00 97.9 81 19 100/60 (73) 99 97.9 08/05/18 05:14 81 94/47 08/05/18 04:00 97.6 81 19 94/47 (63) 99 97.6 08/04/18 22:00 81 100/60 08/04/18 21:00 Room Air 08/04/18 20:00 98.2 81 18 100/60 (73) 97 98.2 08/04/18 15:58 97.7 67 16 95/58 (70) 100 97.7 08/04/18 14:00 77 104/61 08/04/18 11:47 97.5 77 19 102/58 (73) 100 97.5 Intake and Output 08/04/18 08/05/18 19:00 07:00 Intake Total 450 ml 360 ml Balance 450 ml 360 ml Intake Oral 360 ml Other 450 ml # Voids 3 2 # Bowel Movements 2 1 Laboratory Tests Test 08/05/18 05:30 White Blood Count 10.5 K/UL (4.8-10.8) Red Blood Count 2.23 M/UL (4.20-5.40) L Hemoglobin 7.3 G/DL (12.0-16.0) L Hematocrit 22.8 % (37.0-47.0) L Mean Corpuscular Volume 102 FL (80-99) H Mean Corpuscular Hemoglobin 32.7 PG (27.0-31.0) H Mean Corpuscular Hemoglobin Concent 32.0 G/DL (32.0-36.0) Red Cell Distribution Width 21.6 % (11.6-14.8) H Platelet Count 94 K/UL (150-450) L Mean Platelet Volume 10.8 FL (6.5-10.1) H Neutrophils (%) (Auto) % (45.0-75.0) Lymphocytes (%) (Auto) % (20.0-45.0) Monocytes (%) (Auto) % (1.0-10.0) Eosinophils (%) (Auto) % (0.0-3.0) Basophils (%) (Auto) % (0.0-2.0) Differential Total Cells Counted 100 Neutrophils % (Manual) 75 % (45-75) Lymphocytes % (Manual) 17 % (20-45) L Monocytes % (Manual) 4 % (1-10) Eosinophils % (Manual) 1 % (0-3) Basophils % (Manual) 0 % (0-2) Band Neutrophils 3 % (0-8) Platelet Estimate Decreased L Platelet Morphology Normal Red Blood Cell Morphology Normal Sodium Level 133 MMOL/L (136-145) L Potassium Level 3.9 MMOL/L (3.5-5.1) Chloride Level 104 MMOL/L (98-107) Carbon Dioxide Level 22 MMOL/L (21-32) Anion Gap 7 mmol/L (5-15) Blood Urea Nitrogen 14 mg/dL (7-18) Creatinine 0.8 MG/DL (0.55-1.30) Estimat Glomerular Filtration Rate > 60 mL/min (>60) Glucose Level 95 MG/DL (74-106) Calcium Level 8.2 MG/DL (8.5-10.1) L Total Bilirubin 5.3 MG/DL (0.2-1.0) H Direct Bilirubin 3.8 MG/DL (0.0-0.3) H Aspartate Amino Transf (AST/SGOT) 239 U/L (15-37) H Alanine Aminotransferase (ALT/SGPT) 93 U/L (12-78) H Alkaline Phosphatase 161 U/L (46-116) H Total Protein 6.3 G/DL (6.4-8.2) L Albumin 1.4 G/DL (3.4-5.0) L Globulin 4.9 g/dL Albumin/Globulin Ratio 0.3 (1.0-2.7) L Height (Feet): 5 Height (Inches): 9.00 Weight (Pounds): 271 General Appearance: WD/WN, no apparent distress, alert Cardiovascular: normal rate Respiratory/Chest: normal breath sounds, no respiratory distress Abdominal Exam: normal bowel sounds, non tender, soft, ascites Extremities: non-tender Objective generalized jaundice Markus Lebron DRIVER LICENSE REVIEWING OFFICER Aug 05, 2018 11:29
[2018-08-05 12:00] VITALS: BP 100/60
--- NOTE | 2018-08-07 14:18 | Discharge Summary ---
Discharge Summary Discharge Summary _ DATE OF ADMISSION: 07/16/2018 DATE OF DISCHARGE: 08/05/2018 REASON FOR ADMISSION: 37 years old female presented with altered level of consciousness, s/post ground-level fall. Patient received IV hydration . She was protecting her airway. Vital signs were stable WBC 12.4 ,hemoglobin 8.0, hematocrit 24.2, platelet 75 . INR 2.2 . Potassium 1.5, magnesium 0.9, phosphorus 1.5 . Total bilirubin 18.1 ,direct bilirubin 12.7 . Ammonia level 140. AST 104, ALT 17. Urine toxicology screen was negative. Serum alcohol level was negative. CT of the head revealed no acute intracranial pathology. Chest x-ray revealed no acute cardiopulmonary pathology. Abdominal ultrasound revealed evidence of hepatic cirrhosis. Venous duplex bilateral lower extremity was negative. Patient started on the IV fluids. Patient received thiamine, vitamin K and Protonix. Patient was typed and crossed Patient started on lactulose. NG tube inserted and placement was confirmed by abdominal x-ray. Potassium replacement provided . Patient admitted to telemetry floor for further management with diagnosis of altered level of consciousness, hepatic encephalopathy, liver failure, anemia, GI bleeding ,severe hypokalemia ,probable EtOH abuse, malnutrition. CONSULTANTS: ID specialist Dr. Simran Ly GI specialist Dr. Rodriguez cavalry officer Dr. Pinon surgery Dr. Sorto psychiatrist [facility] COURSE: Patient initially admitted to telemetry floor. GI consult was requested. Hemoglobin and hematocrit were closely monitored . Stool for occult blood was positive. Empiric antibiotics initially were held due to low suspicion for spontaneous bacterial peritonitis. Ratio of AST to AL T was suggestive of alcohol abuse. Mother reported that daughter was consuming alcohol. Patient started on thiamine and folic acid. Patient with evidence of acute hepatic failure and hepatic encephalopathy . Patient was started on lactulose and rifaximin. Ammonia was trending down , prior discharge 77. Per GI recommendations, patient will need to continue with maintenance dose of Lactulose. Hemoglobin and hematocrit were trending down. Patient exhibited evidence of upper GI bleeding. Patient subsequently undergone on 07/23 upper endoscopy . According to GI specialist , p patient was found to have actively bleeding esophageal varices, status post banding and hemostasis. GI specialist recommended that if the patient continued to bleed , will need a TIPS procedure. GI specialist recommended transfer to a higher level of care. GI prophylaxis continued with PPI bid. Patient started on propranolol for portal hypertension with holding parameters for systolic blood pressure below 90. Patient was kept nothing by mouth. Liver parameters and were closely monitored. NG tube came out, and GI specialist did not recommended to reinsert due to high risk of rebleeding. Swallow evaluation was done, and diet was provided as per speech therapist recommendations with strict aspiration /reflux precautions . Oral fluids were pushed as tolerated. Human Resources Office Manager recommendations implemented in plan of care. Fuel Assembler closely followed. Electrolytes were replaced as per cavalry officer's recommendations. Renal parameters and electrolytes were closely monitored , and nephrotoxins were avoided. Patient had multiply electrolyte abnormalities, including hypokalemia, hypomagnesemia, and hypophosphatemia. All electrolyte abnormalities were resolved prior to discharge. Leukocytosis was trending up. Infectious disease consult was requested due to persistent leukocytosis. CT of the chest, abdomen and pelvis revealed diffuse patchy perihilar opacities , likely representing pulmonary edema versus pneumonia and cardiomegaly. CT of the abdomen and pelvis revealed cirrhotic liver, no gallstones ,no dilated ducts. Splenomegaly, ascites, anasarca. Patient was started on antibiotics as per ID specialist recommendations. Patient also undergone ultrasound-guided paracentesis. Pathology of ascitic fluid revealed no evidence of malignant cells. Central line catheter tip revealed VRE and Meka. Central line was discontinued. PICC line subsequently was placed. Patient status post treatment for pneumonia and needs additional 1 day of Linezolid and Fluconazole as per ID recommendations. Hemoglobin and hematocrit were closely monitored. Patient undergone total of 8 units of packed red blood cell transfusion and 5 units of fresh frozen plasma. Coagulopathy was corrected initially with vitamin K and then with fresh frozen plasma. Prior to discharge platelets 94, INR 1.7 . Hemoglobin 7.3, hematocrit 22.8 . Leukocytosis resolved. Psychiatrist followed the patient and recommended Temazepam for alcohol withdrawal since it did not metabolize anything. Patient was working with physical therapist. Bilirubin trending down, however AST up to 239 and AL T up to 93. Patient was counseled on abstinence from alcohol. Patient was stabilized and ready for transfer to longterm facility for continuation of care. Overall prognosis poor FINAL DIAGNOSES: Acute hepatic encephalopathy Liver failure Severe electrolyte imbalances (hypokalemia, hypomagnesemia, hypophosphatemia), resolved Upper GI bleeding Status post EGD with banding and hemostasis Esophageal varices, actively bleeding , s/p banding ETOH cirrhosis VRE/fungal catheter infection , status post removal Pneumonia ,status post treatment Status post paracentesis Alcohol withdrawal Malnutrition DISCHARGE MEDICATIONS: See Medication Reconciliation list. DISCHARGE INSTRUCTIONS: Patient was discharged to the longterm facility. Follow up with medical doctor at the facility. I have been assigned to dictate discharge summary for this account. I was not involved in the patient's management. Dionne Childers NP Aug 07, 2018 14:18
== END 2018-08-05 14:00 | DRG 425 ==
LOC: EDBD 02:22 → EMR 02:32 → EDBEDREQ 03:59 → 2E 04:15 → EDBEDREQ 04:56 → ICU 07-18 11:32 → 2W 07-22 13:00 → 2E 07-29 18:32 → 4E 08-03 14:30
PROC: 06HN33Z Insertion of Infusion Device into Left Femoral Vein, Percutaneous Approach (ICD-10-PCS; 2018-07-19 14:14)
PROC: 06L38CZ Occlusion of Esophageal Vein with Extraluminal Device, Via Natural or Artificial Opening Endoscopic (ICD-10-PCS; principal; 2018-07-23)
PROC: 02HV33Z Insertion of Infusion Device into Superior Vena Cava, Percutaneous Approach (ICD-10-PCS; 2018-07-26)
PROC: B548ZZA Ultrasonography of Superior Vena Cava, Guidance (ICD-10-PCS; 2018-07-26)
PROC: 0W9G3ZZ Drainage of Peritoneal Cavity, Percutaneous Approach (ICD-10-PCS; 2018-07-26)
DX: E87.6 Hypokalemia (principal); I85.11 Secondary esophageal varices with bleeding; J18.9 Pneumonia, unspecified organism; E87.2 Acidosis; E46 Unspecified protein-calorie malnutrition; D69.6 Thrombocytopenia, unspecified; E87.3 Alkalosis; E87.0 Hyperosmolality and hypernatremia; T80.211A Bloodstream infection due to central venous catheter, initial encounter; K76.6 Portal hypertension; Z68.41 Body mass index [BMI] 40.0-44.9, adult; K72.10 Chronic hepatic failure without coma; R73.9 Hyperglycemia, unspecified; D72.829 Elevated white blood cell count, unspecified; Z86.73 Personal history of transient ischemic attack (TIA), and cerebral infarction without residual deficits; F10.239 Alcohol dependence with withdrawal, unspecified; D50.0 Iron deficiency anemia secondary to blood loss (chronic); K70.31 Alcoholic cirrhosis of liver with ascites; Z22.322 Carrier or suspected carrier of Methicillin resistant Staphylococcus aureus; R74.0 Nonspecific elevation of levels of transaminase and lactic acid dehydrogenase [LDH]; R60.9 Edema, unspecified; R19.7 Diarrhea, unspecified
CPT/HCPCS: 36415; 36569; 70450; 71045; 71260; 74018; 74177; 76700; 76937; 76942; 80048; 80053; 80076; 80307; 80329; 81003; 81025; 82140; 82248; 82390; 82550; 82962; 83735; 84100; 84132; 84133; 85007; 85025; 85610; 85730; 86705; 86709; 86803; 86850; 86900; 86901; 86920; 86927; 87070; 87081; 87181; 87205; 87324; 87340; 88104; 92610; 93005; 93970; 93971; 94003; 94150; 96365; 96366; 99285; J0171; J2405; J3430

== ENCOUNTER 2018-08-17 11:30 | Inpatient (IN) | payer MEDICAID, OTHER ==
[2018-08-17] VITALS (9 sets, daily range): BP systolic 89–100; BP diastolic 29–60
[~2018-08-17] VITALS: Ht 160 cm; Wt 158.3 kg
[~2018-08-17 11:30] MED LIST: ACETAMINOPHEN325 M1 ORAL; DIFLUCAN100 MG ORAL; FLUCONAZOLE100 MG ORAL; FOLIC ACID0.8 MG ORAL; FOLIC ACID1 MG ORAL; PNEUMOVAX IM; PROPRANOLOL HCL10 MG ORAL; PROPRANOLOL HCL80 M2 PO; PROTONIX20 MG ORAL; PROTONIX40 MG ORAL; RIFAXIMIN500 GM MC; XIFAXAN550 MG ORAL; ZYVOX600 MG ORAL
--- NOTE | 2018-08-17 11:52 | Emergency Room Report ---
History of Present Illness General Chief Complaint: General Complaint Source: Medical Record Present Illness HPI Ms. Goel is a 38 yo female with hx of alcoholic liver cirrhosis, alcohol dependence, muscle weakness, pneumonia, anemia, hypertension presents from [facility] halfway facility. PCP is Dr. Reinaldo Kevin. She presents with abdominal pain and hypotension. Severe abdominal pain diffuse Patient is poor historian. Hx is limited. SNF documentation reviewed. Allergies: Coded Allergies: LORAZEPAM (Verified Allergy, Unknown, 05/21/18) PENICILLINS (Verified Allergy, Unknown, 05/21/18) Patient History Past Medical History: old chart reviewed Social History: Reports: alcohol use Reviewed Nursing Documentation: PMH: Agreed; PSxH: Agreed Nursing Documentation-PMH Past Medical History: No History, Except For Hx Hypertension: No Hx Pacemaker: No Hx Asthma: Yes Hx COPD: No Hx Diabetes: No Hx Cancer: No Hx Gastrointestinal Problems: No Hx Dialysis: No Hx Neurological Problems: Yes - + Hx Cerebrovascular Accident: No Hx Seizures: No Hx Numbness: Yes - legs Review of Systems Constitutional: Reports: malaise Gastrointestinal: Reports: abdominal pain All Other Systems: limited - poor historian Physical Exam Vital Signs Date Time Temp Pulse Resp B/P (MAP) Pulse Ox O2 Delivery O2 Flow Rate FiO2 08/17/18 11:14 99.0 74 18 127/96 98 Room Air 99.0 Sp02 EP Interpretation: reviewed, normal General Appearance: no apparent distress, alert, lethargic, Chronically Ill Eyes: bilateral eye normal inspection, bilateral eye PERRL ENT: normal pharynx, no angioedema, normal voice, dry mucus membranes Respiratory: chest non-tender, lungs clear, normal breath sounds, no rhonchi, no respiratory distress Cardiovascular #1: regular rate, rhythm, edema Gastrointestinal: non tender, soft, no peritonitis Rectal: heme positive stool, other - dark brown stool heme positive Musculoskeletal: other - diffuse severe pitting edeam Neurologic: alert, oriented - x 2 Psychiatric: mood/affect normal Procedures Critical Care Time Critical Care Time 100 minutes of critical care time excluding procedures were used in the care of patient. Patient required multiple interventions and assessments. Medical Decision Making Diagnostic Impression: Primary Impression: GI bleed Additional Impressions: Hypotension LENI (acute kidney injury) ER Course 1. Hypotension persistent in spite IVF, suspect active GI bleed with hx active bleeding esophageal varices on previous encounter according to GI consultation. 2 units of RBCs ordered, octreotide drip ordered, IVF given, dark brown stool in exam hemoccult positive 2. possible sepsis with UTI and elevated lactic acid, broad spectrum abx ordered no tachycardia no fever currently 3. LENI due to critcal illness multiple reasons for kidney hypoperfusion as above, IVF, hyperkalemia treatment initiated 4. hx of alcoholic cirrhosis and encephalopathy, patient fairly lucid I spoke with Dr. Carrillo, physician who approved patient to stay at our facility due to persistent hypotension and potential for quick decline Dr. Fuentes accepted patient to ICU I spoke extensively with patient. She repeatedly refused catheter in her "neck or thigh or groin". She desires PICC line which is not available according to charge nurse. EKG Diagnostic Results EKG Time: 12:21 Rate: normal Rhythm: NSR ST Segments: no acute changes Other Impression first degree AV block no ST elevation +artifact Last Vital Signs Date Time Temp Pulse Resp B/P (MAP) Pulse Ox O2 Delivery O2 Flow Rate FiO2 08/17/18 11:14 99.0 74 18 127/96 98 Room Air 99.0 Status: unchanged Disposition: ADMITTED INPATIENT Condition: Critical Arielle Stokes MD Aug 17, 2018 11:52
[2018-08-17] MEDS ORDERED: Cefepime HCl 2 GM in NS 110 ML IV SCH (12:00)
[2018-08-17] MEDS ORDERED: NS 1000ml 3,400 ML IVLG ONE (12:00)
[2018-08-17 12:27] LABS: APPEARANCE,URINE CLOUDY; BILIRUBIN, URINE 2+ (NEGATIVE); COLOR,URINE BROWN; GLUCOSE, URINE (UA) 1+ (NEGATIVE); KETONES,URINE NEGATIVE (NEGATIVE); LEUKOCYTE ESTERASE ,URINE 3+ (NEGATIVE); NITRITE,URINE POSITIVE (NEGATIVE); PH,URINE 5 (4.5-8.0); PROTEIN,URINE 4+ (NEGATIVE); UROBILINOGEN,URINE 1 MG/DL (0.0-1.0)
[2018-08-17 12:35] LABS: HEMATOCRIT 19.1 % (37.0-47.0); MEAN CORPUSCULAR VOLUME 107 FL (80-99); PLATELET COUNT 47 K/UL (150-450); RED BLOOD COUNT 1.79 M/UL (4.20-5.40); RED CELL DISTRIBUTION WIDTH 19.1 % (11.6-14.8); WHITE BLOOD COUNT 12.6 K/UL (4.8-10.8)
[2018-08-17 12:38] LABS: HEMOGLOBIN 5.9 G/DL (12.0-16.0)
[2018-08-17 12:42] LABS: INR 1.4 (0.9-1.1)
[2018-08-17 12:54] LABS: ALANINE AMINOTRANSFERASE 46 U/L (12-78); ALBUMIN 1.8 G/DL (3.4-5.0); ALBUMIN/GLOBULIN RATIO 0.4 (1.0-2.7); ALKALINE PHOSPHATASE 117 U/L (46-116); ANION GAP 17 mmol/L (5-15); ASPARTATE AMINO TRANSFERASE 84 U/L (15-37); BILIRUBIN,TOTAL 3.3 MG/DL (0.2-1.0); BLOOD UREA NITROGEN 65 mg/dL (7-18); CARBON DIOXIDE 12 MMOL/L (21-32); CHLORIDE 99 MMOL/L (98-107); CKMB 2.3 NG/ML (0.0-3.6); CREATINE KINASE 264 U/L (26-308); CREATININE 6.7 MG/DL (0.55-1.30); SODIUM 128 MMOL/L (136-145)
[2018-08-17 13:06] LABS: BILIRUBIN,DIRECT 2.4 MG/DL (0.0-0.3); POTASSIUM 6.7 MMOL/L (3.5-5.1)
--- NOTE | 2018-08-17 13:28 | Diagnostic Imaging Report ---
EXAM: XR Chest, 1 View CLINICAL HISTORY: WEAK TECHNIQUE: Frontal view of the chest. COMPARISON: Chest x-ray dated 07/22/18 FINDINGS: Lungs: Pulmonary vascular congestion with increased interstitial markings, likely representing interstitial edema. The lungs are otherwise clear without focal consolidation. Pleural space: Unremarkable. The costophrenic angles are sharp. No visible pneumothorax. Heart: Cardiac silhouette appears enlarged, however this may be related to portable exam technique. Mediastinum: Unremarkable. Bones/joints: Unremarkable. Tubes, lines and devices: EKG leads overlie the thorax. IMPRESSION: Pulmonary vascular congestion with increased interstitial markings, likely representing interstitial edema. This appears improved relative to the chest x-ray from 07/22/18
[2018-08-17] MEDS ORDERED: Sodium Bicarbonate 50ml Carp IV ONE (13:30)
[2018-08-17] MEDS ORDERED: Calcium Gluconate 1gm/10ml vial IVP ONE (13:30)
[2018-08-17] MEDS ORDERED: Insulin Human Regular 100units/ml 3ml IV ONE ×2 (13:30→19:30)
[2018-08-17] MEDS ORDERED: Albuterol ud Inhalation HHN ONE (13:30)
[2018-08-17] MEDS ORDERED: Albuterol ud Inhalation ONE (13:54)
[2018-08-17] MEDS ORDERED: Octreotide Acetate 500 MCG in Sodium Chloride 500ML 499 ML IV SCH (14:30)
[2018-08-17] MEDS ORDERED: Mylanta II UD 30ml ONE (15:53)
[2018-08-17] MEDS ORDERED: Mylanta II UD 30ml ORAL PRN (16:18)
[2018-08-17] MEDS ORDERED: D5NS 1,000 ML IV SCH (17:00)
[2018-08-17] MEDS ORDERED: Sodium Polystyrene Sulfonate 15gm Powder ORAL SCH (17:00)
[2018-08-17 17:19] LABS: HEMATOCRIT 19.9 % (37.0-47.0); MEAN CORPUSCULAR VOLUME 108 FL (80-99); PLATELET COUNT 55 K/UL (150-450); RED BLOOD COUNT 1.84 M/UL (4.20-5.40); RED CELL DISTRIBUTION WIDTH 18.7 % (11.6-14.8); WHITE BLOOD COUNT 15.5 K/UL (4.8-10.8)
[2018-08-17 17:20] LABS: ANION GAP 16 mmol/L (5-15); BLOOD UREA NITROGEN 66 mg/dL (7-18); CALCIUM 7.7 MG/DL (8.5-10.1); CARBON DIOXIDE 13 MMOL/L (21-32); CHLORIDE 100 MMOL/L (98-107); CREATININE 6.6 MG/DL (0.55-1.30); HEMOGLOBIN 6.4 G/DL (12.0-16.0); SODIUM 129 MMOL/L (136-145)
[2018-08-17 17:30] LABS: POTASSIUM 6.2 MMOL/L (3.5-5.1)
[2018-08-17] MEDS ORDERED: Sodium Bicarbonate 150 ML in D5W 1000ml 1,000 ML IV SCH (17:30)
[2018-08-17] MEDS: Pantoprazole Inj IVP SCH (18:26)
[2018-08-17] MEDS: Lactulose 20gm/30ml UDC ORAL SCH (18:27)
--- NOTE | 2018-08-17 18:30 | Consultation ---
DATE OF CONSULTATION: 08/17/2018 GASTROLOGY CONSULTATION CHIEF COMPLAINT: I was asked to see this patient by Dr. Chauncey Fuentes for evaluation of gastrointestinal bleeding. HISTORY OF PRESENT ILLNESS: The patient is a 38-year-old, woman, who was recently admitted to the same hospital with cirrhotic bleeding. She now comes in the hospital again with hematemesis. On this admission, however, she appears to be in the renal failure with hyperkalemia as well. She was given some insulin and calcium in the emergency room and was sent up to the intensive care unit where I just saw her. She denies any abdominal pain or any other issues at this time. She states that her last drink was in May. In July when she was admitted to the hospital, she had gastrointestinal bleeding and she underwent endoscopy showing variceal bleeding and she underwent variceal band ligation. She also was noted to have alcoholic hepatitis at that time and was treated for this. The patient's home medication is unclear to me based on my discussion with her. She does seem to have some mild liver encephalopathy. Her platelet counts are just shy of 50,000, but her INR is reasonably intact at this time. Her renal failure, however, is completely new compared to her laboratories for a month ago. PAST MEDICAL HISTORY: History of alcoholic cirrhosis. ALLERGIES: Lorazepam and penicillin. FAMILY HISTORY: Unavailable. SOCIAL HISTORY: The patient's mother looks after her affairs. The patient has a history of alcoholism. REVIEW OF SYSTEMS: Otherwise negative. PHYSICAL EXAMINATION: GENERAL: A well-developed and well-nourished woman, seen in the ICU. She appeared to be sedated during the interview. HEENT: Normocephalic and atraumatic. The patient was mildly icteric. NECK: Supple. CHEST: Clear to auscultation. CARDIOVASCULAR: Revealed a regular rate. ABDOMEN: Soft and nontender with good bowel sounds. EXTREMITIES: Revealed 2 to 3+ edema bilaterally in the lower extremities. NEUROLOGIC: Notable for hepatic encephalopathy. LABORATORY DATA: Noted. ASSESSMENT: This patient presents with recurrent upper gastrointestinal bleeding, which may be due to variceal hemorrhage. What is much more complicated in the picture on this admission however is her simultaneous acute renal failure with acute hyperkalemia. Her vital signs at this time are actually stable with a heart rate of 70 with a blood pressure of 102/47 and respirations of 16. As such, I will first wait for her renal parameters and electrolyte disturbances to be stabilized. She is to get a blood transfusion, but I am concerned that with her potassium level of 6.7, the additional hyperkalemia, which may be induced by blood transfusion may significantly raise her potassium and cause a critical event. I have told the nurse to hold off on the blood transfusion again since her vital signs are apparently stable at this time and to get the Kayexalate immediately and give it to her. Once in the next hour or two, if her potassium is documented to be lower then the blood transfusion can be immediately given. I would also advise immediate consultation with her renal specialist to evaluate the patient for renal failure. Obviously, hepatorenal syndrome would be on a differential diagnosis, which should be a very great prognosis. I have written for some normal saline to be given at 50 mL an hour to both help with the sodium and with the vascular volume. The patient's carbon dioxide is very low, which is concerning for acidosis. The patient's condition is very critical and her prognosis is very limited. RECOMMENDATIONS: 1. Stat Kayexalate. 2. Repeat potassium in an hour or two after the Kayexalate. 3. Once the potassium is lower, perhaps less than 5.5 or so, then the blood transfusion can be given more safely. 4. Renal consultation. 5. Intravenous normal saline. 6. Intravenous Sandostatin. 7. Intravenous Protonix. 8. Serial CBC and electrolytes. 9. Intensive care unit observation. 10. NPO. 11. Critical and guarded. 12. Endoscopy with band ligation once some of the above parameters have been stabilized. Thank you for asking me to participate in the care of this patient. Carlos Sandhu M.D. DR: AMY JOB#: [id number] CC: ELLEN
[2018-08-17] MEDS: Sodium Bicarbonate 150 ML in D5W 1000ml 1,000 ML IV SCH (19:45)
--- NOTE | 2018-08-17 20:00 | Consultation ---
DATE OF CONSULTATION: 08/17/2018 CONSULTING PHYSICIAN: Amos Pinon M.D. REASON FOR CONSULTATION: 1. Acute kidney injury. 2. Hyperkalemia. 3. Metabolic acidosis. HISTORY OF PRESENT ILLNESS: The patient is a 38-year-old female known to my nephrological service after recent admission for acute kidney injury, which resolved. The patient does have known alcoholic cirrhosis and had been recently discharged with normal creatinine. The patient now presents to the emergency room for further evaluation and care from her senior care facility not feeling well with diffuse abdominal pain when noted. She had now a creatinine of 6.6, BUN 66, bicarb 13, potassium 6.2, and sodium 129. The patient was treated for hyperkalemia with Kayexalate approximately 5 p.m. She is currently hypotensive, fatigued, but she is awake and coherent. ALLERGIES: Lorazepam and penicillins. PAST MEDICAL HISTORY: 1. Acute kidney injury. 2. Alcoholic cirrhosis. 3. Encephalopathy. 4. Alcohol dependence. 5. Pneumonia. 6. Anemia. 7. Hypertension. SOCIAL HISTORY: Previous heavy consumption of alcohol. No illicit drug use or current tobacco use. FAMILY HISTORY: Positive for hypertension. PAST SURGICAL HISTORY: Noncontributory. REVIEW OF SYSTEMS: NEUROLOGIC: The patient denies headache, change in vision, syncope, or presyncopal episodes. CARDIOVASCULAR: No current chest pain, palpitations, or angina. PULMONARY: No difficulty breathing, productive cough, or sputum. GASTROINTESTINAL/GENITOURINARY: No diarrhea, nausea, abdominal pain. ENDOCRINOLOGY: No night sweats, fevers, or chills. MUSCULOSKELETAL: The patient is feeling weak, tired, and fatigued. PHYSICAL EXAMINATION: VITAL SIGNS: Blood pressure 98/46, 100% oxygen saturation on room air, pulse 68, respiratory rate 15, and temperature 99.9 degrees. GENERAL: The patient is awake and alert to all four spheres. HEENT: Extraocular muscles are intact. No lymphadenopathy noted. Nonicteric sclerae. CARDIOVASCULAR: S1 and S2. No rubs or gallops. PULMONARY: Clear to auscultation bilaterally. No rales, rhonchi or wheezes. ABDOMEN: Distended. Nontender. Positive fluid wave shift. EXTREMITIES: 4+ pitting edema in all extremities. LABORATORY DATA: Labs dated 08/17/2018, sodium 129, potassium 6.2, bicarb 13, BUN 66, and creatinine 6.6. Total bilirubin of 3.3, direct of 2.4. Calcium 7.7. Lactic acid 5.9. Ammonia level 99. ASSESSMENT AND PLAN: 1. Acute kidney injury secondary to intravascular volume depletion along with ischemic acute tubular necrosis from hypotension. At this time, maintain hemodynamics stability with mean arterial blood pressure greater than 65 mmHg. Renal ultrasound to rule out the possibility of underlying obstructive uropathy at this time. Maintaining hemodynamic stability will be of utmost importance. Avoid any nephrotoxins. The patient currently has declined dialysis and agreed to medical therapy only. She is keep an open mind if things worsen and dialysis is required, she may change at that time. 2. Hyperkalemia secondary to renal insufficiency and gastrointestinal bleed. At this time, potassium 6.2. The patient was given Kayexalate 60 g already. 20 mg intravenous Lasix has been ordered. We will repeat stat serum potassium and proceed accordingly. We will also correct underlying acidosis. 3. Metabolic acidosis secondary to hypoperfusion and accumulation of lactic acid along with renal insufficiency. At this time, we will change IV fluids to sodium bicarb. 4. Gastrointestinal bleed. Hemoglobin currently 6.4, previously 5.9. Gastroenterology to evaluate and manage. Patient receiving second unit of blood transfusion. 5. Hepatic encephalopathy with liver failure secondary to alcoholic cirrhosis, being managed by Gastroenterology. Amos Pinon MD DR: JEANNA JOB#: [id number] CC: ELLEN
[2018-08-17] MEDS ORDERED: Zolpidem 5mg tab ORAL PRN (21:00)
[2018-08-17] MEDS ORDERED: Miralax 17gm pkt ORAL PRN (21:00)
[2018-08-17] MEDS ORDERED: Cefepime HCl 1 GM in D5W 55 ML IV SCH (22:00)
[2018-08-18] VITALS (24 sets, daily range): BP systolic 88–99; BP diastolic 30–41
[2018-08-18] LABS: HEMATOCRIT 23.8 % (37.0-47.0); HEMOGLOBIN 7.3 G/DL (12.0-16.0); MEAN CORPUSCULAR VOLUME 109 FL (80-99); PLATELET COUNT 50 K/UL (150-450); RED BLOOD COUNT 2.18 M/UL (4.20-5.40); RED CELL DISTRIBUTION WIDTH 18.9 % (11.6-14.8); WHITE BLOOD COUNT 14.1 K/UL (4.8-10.8)
[2018-08-18] MEDS: Lactulose 20gm/30ml UDC ORAL SCH ×4 (00:18→18:43)
[2018-08-18 00:19] LABS: ANION GAP 16 mmol/L (5-15); BLOOD UREA NITROGEN 66 mg/dL (7-18); CALCIUM 7.6 MG/DL (8.5-10.1); CARBON DIOXIDE 12 MMOL/L (21-32); CHLORIDE 101 MMOL/L (98-107); CREATININE 6.6 MG/DL (0.55-1.30); SODIUM 130 MMOL/L (136-145)
[2018-08-18] MEDS ORDERED: Insulin Human Regular 100units/ml 3ml IV SCH (00:45)
[2018-08-18] MEDS: Octreotide Acetate 500 MCG in Sodium Chloride 500ML 499 ML IV SCH ×3 (02:16→22:00)
[2018-08-18] MEDS: Pantoprazole Inj IVP SCH ×2 (06:18→18:42)
[2018-08-18 06:38] LABS: HEMATOCRIT 21.5 % (37.0-47.0); MEAN CORPUSCULAR VOLUME 106 FL (80-99); PLATELET COUNT 52 K/UL (150-450); RED BLOOD COUNT 2.03 M/UL (4.20-5.40); RED CELL DISTRIBUTION WIDTH 19.2 % (11.6-14.8); WHITE BLOOD COUNT 12.9 K/UL (4.8-10.8)
[2018-08-18 06:43] LABS: HEMOGLOBIN 6.7 G/DL (12.0-16.0)
[2018-08-18 06:47] LABS: INR 1.4 (0.9-1.1)
[2018-08-18 06:58] LABS: ANION GAP 18 mmol/L (5-15); BLOOD UREA NITROGEN 65 mg/dL (7-18); CALCIUM 7.7 MG/DL (8.5-10.1); CARBON DIOXIDE 13 MMOL/L (21-32); CHLORIDE 100 MMOL/L (98-107); CREATININE 6.7 MG/DL (0.55-1.30); POTASSIUM 5.5 MMOL/L (3.5-5.1); SODIUM 131 MMOL/L (136-145)
[2018-08-18 07:00] LABS: AMMONIA 68 umol/L (11-32)
[2018-08-18 07:11] LABS: ALANINE AMINOTRANSFERASE 44 U/L (12-78); ALBUMIN 1.9 G/DL (3.4-5.0); ALBUMIN/GLOBULIN RATIO 0.4 (1.0-2.7); ALKALINE PHOSPHATASE 114 U/L (46-116); ASPARTATE AMINO TRANSFERASE 88 U/L (15-37); BILIRUBIN,DIRECT 2.7 MG/DL (0.0-0.3); BILIRUBIN,TOTAL 4.2 MG/DL (0.2-1.0); CHOLESTEROL 170 MG/DL (< 200); HDL CHOLESTEROL 38 MG/DL (40-60); TRIGLYCERIDES 70 MG/DL (30-150)
[2018-08-18 07:25] LABS: ANION GAP 19 mmol/L (5-15); BLOOD UREA NITROGEN 66 mg/dL (7-18); CARBON DIOXIDE 11 MMOL/L (21-32); CHLORIDE 100 MMOL/L (98-107); CREATININE 6.7 MG/DL (0.55-1.30); POTASSIUM 5.8 MMOL/L (3.5-5.1); SODIUM 130 MMOL/L (136-145)
--- NOTE | 2018-08-18 07:56 | Nephrology Progress Note ---
Assessment/Plan Assessment/Plan 1. LENI- multifact ATN ( hypotension/intravasc vol dep/?hepatorenal/Anemia) - IVFs, MAP >65mmHg - patient declining HD - Renal US, stahl, avoid nephrotoxins 2. Hyperk+- due to RI and metabolic acidosis - K+ down to 5.5 - IV bicarb and lasix 3. Hepatic Failure - alocohol per GI 4. Met Acidosis- AG/Lactic - IV bicarb 5. GI Bleed- octreotide, mgmt per GI Subjective Date patient seen: Aug 18, 2018 Time patient seen: 07:50 ROS Limited/Unobtainable: Yes Constitutional: Reports: weakness Allergies: Coded Allergies: LORAZEPAM (Verified Allergy, Unknown, 05/21/18) PENICILLINS (Verified Allergy, Unknown, 05/21/18) All Systems: reviewed and negative except above Subjective Patient feeling ill Objective Last 24 Hour Vital Signs Date Time Temp Pulse Resp B/P (MAP) Pulse Ox O2 Delivery O2 Flow Rate FiO2 08/18/18 07:00 71 15 90/33 (52) 100 08/18/18 06:00 71 16 90/32 (51) 100 08/18/18 05:00 69 15 88/38 (55) 100 08/18/18 04:00 Nasal Cannula 2.0 08/18/18 04:00 97.7 69 14 92/41 (58) 100 97.7 08/18/18 04:00 68 08/18/18 03:00 68 14 93/37 (55) 100 08/18/18 02:00 71 13 93/38 (56) 100 08/18/18 01:00 70 14 98/40 (59) 100 08/18/18 00:00 97.6 68 14 95/32 (53) 100 97.6 08/18/18 00:00 69 08/18/18 00:00 Nasal Cannula 2.0 08/17/18 23:00 69 15 96/39 (58) 100 08/17/18 22:00 70 15 98/37 (57) 100 08/17/18 21:00 72 17 97/34 (55) 100 08/17/18 20:00 Room Air 08/17/18 20:00 69 08/17/18 20:00 97.5 68 14 89/29 (49) 100 97.5 08/17/18 19:00 69 15 96/47 (63) 100 08/17/18 18:00 67 14 92/60 (71) 100 08/17/18 17:00 68 15 98/46 (63) 100 08/17/18 16:48 Room Air 08/17/18 16:12 99.0 73 18 91/49 100 Room Air 21 99.0 08/17/18 16:00 97.5 70 14 100/51 (67) 100 97.5 08/17/18 14:10 67 18 100 Room Air 21 08/17/18 14:01 67 20 100 Room Air 08/17/18 14:01 67 20 Room Air 08/17/18 11:30 99.0 73 18 89/32 100 Room Air 99.0 08/17/18 11:14 99.0 74 18 127/96 98 Room Air 99.0 Intake and Output 08/17/18 08/18/18 19:00 07:00 Intake Total 250 ml 1625 ml Output Total 50 ml 100 ml Balance 200 ml 1525 ml Intake Oral 200 ml 150 ml IV Total 50 ml 1225 ml Blood Product 250 ml Output Stool Total 100 ml Emesis 50 ml # Voids 1 # Bowel Movements 1 Laboratory Tests 08/17/18 11:35: White Blood Count 12.6H, Red Blood Count 1.79L, Hemoglobin 5.9*L, Hematocrit 19.1L, Mean Corpuscular Volume 107H, Mean Corpuscular Hemoglobin 33.0H, Mean Corpuscular Hemoglobin Concent 30.8L, Red Cell Distribution Width 19.1H, Platelet Count 47L, Mean Platelet Volume 13.7H, Neutrophils (%) (Auto) , Lymphocytes (%) (Auto) , Monocytes (%) (Auto) , Eosinophils (%) (Auto) , Basophils (%) (Auto) , Differential Total Cells Counted 100, Neutrophils % ( Manual) 80H, Lymphocytes % (Manual) 12L, Monocytes % (Manual) 2, Eosinophils % ( Manual) 1, Basophils % (Manual) 0, Myelocytes % 1H, Band Neutrophils 4, Platelet Estimate DecreasedL, Platelet Morphology Normal, Anisocytosis 1+, Macrocytosis 1+, Prothrombin Time 14.7H, Prothromb Time International Ratio 1.4H , Activated Partial Thromboplast Time 38H, Sodium Level 128L, Potassium Level 6.7*H, Chloride Level 99, Carbon Dioxide Level 12L, Anion Gap 17H, Blood Urea Nitrogen 65H, Creatinine 6.7H, Estimat Glomerular Filtration Rate 7.0, Glucose Level 92, Lactic Acid Level 5.90H, Calcium Level 8.0L, Total Bilirubin 3.3H, Direct Bilirubin 2.4H, Aspartate Amino Transf (AST/SGOT) 84H, Alanine Aminotransferase (ALT/SGPT) 46, Alkaline Phosphatase 117H, Total Creatine Kinase 264, Creatine Kinase MB 2.3, Creatine Kinase MB Relative Index 0.8, Total Protein 6.9, Albumin 1.8L, Globulin 5.1, Albumin/Globulin Ratio 0.4L 08/17/18 11:55: Urine Color Brown, Urine Appearance Cloudy, Urine pH 5, Urine Specific Temple 1.010, Urine Protein 4+H, Urine Glucose (UA) 1+H, Urine Ketones Negative, Urine Blood 5+H, Urine Nitrite PositiveH, Urine Bilirubin 2+H, Urine Ictotest Negative , Urine Urobilinogen 1H, Urine Leukocyte Esterase 3+H, Urine RBC 20-30H, Urine WBC 60-80H, Urine Squamous Epithelial Cells Few, Urine Bacteria ModerateH 08/17/18 13:51: Lactic Acid Level 5.90H 08/17/18 15:24: Ammonia 99H 08/17/18 16:45: White Blood Count 15.5H, Red Blood Count 1.84L, Hemoglobin 6.4*L, Hematocrit 19.9L, Mean Corpuscular Volume 108H, Mean Corpuscular Hemoglobin 34.6H, Mean Corpuscular Hemoglobin Concent 31.9L, Red Cell Distribution Width 18.7H, Platelet Count 55L, Mean Platelet Volume 11.5H, Neutrophils (%) (Auto) , Lymphocytes (%) (Auto) , Monocytes (%) (Auto) , Eosinophils (%) (Auto) , Basophils (%) (Auto) , Differential Total Cells Counted 100, Neutrophils % ( Manual) 83H, Lymphocytes % (Manual) 10L, Monocytes % (Manual) 4, Eosinophils % ( Manual) 0, Basophils % (Manual) 1, Band Neutrophils 2, Platelet Estimate DecreasedL, Platelet Morphology Normal, Giant Platelets Occasional, Hypochromasia 1+, Anisocytosis 1+, Macrocytosis Occasional, Sodium Level 129L, Potassium Level 6.2*H, Chloride Level 100, Carbon Dioxide Level 13L, Anion Gap 16H, Blood Urea Nitrogen 66H, Creatinine 6.6H, Estimat Glomerular Filtration Rate 7.1, Glucose Level 88, Calcium Level 7.7L 08/17/18 17:30: Potassium Level 6.5*H 08/17/18 23:45: White Blood Count 14.1H, Red Blood Count 2.18L, Hemoglobin 7.3L, Hematocrit 23.8L, Mean Corpuscular Volume 109H, Mean Corpuscular Hemoglobin 33.6H, Mean Corpuscular Hemoglobin Concent 30.9L, Red Cell Distribution Width 18.9H, Platelet Count 50L, Mean Platelet Volume 11.1H, Neutrophils (%) (Auto) , Lymphocytes (%) (Auto) , Monocytes (%) (Auto) , Eosinophils (%) (Auto) , Basophils (%) (Auto) , Neutrophils % (Manual) [Pending], Lymphocytes % (Manual) [Pending], Platelet Estimate [Pending], Platelet Morphology [Pending], Sodium Level 130L, Potassium Level 6.0*H, Chloride Level 101, Carbon Dioxide Level 12L , Anion Gap 16H, Blood Urea Nitrogen 66H, Creatinine 6.6H, Estimat Glomerular Filtration Rate 7.1, Glucose Level 112H, Calcium Level 7.6L, Lactic Acid Level 6.40H 08/18/18 05:35: White Blood Count 12.9H, Red Blood Count 2.03L, Hemoglobin 6.7*L, Hematocrit 21.5L, Mean Corpuscular Volume 106H, Mean Corpuscular Hemoglobin 32.9H, Mean Corpuscular Hemoglobin Concent 31.0L, Red Cell Distribution Width 19.2H, Platelet Count 52L, Mean Platelet Volume 12.5H, Neutrophils (%) (Auto) , Lymphocytes (%) (Auto) , Monocytes (%) (Auto) , Eosinophils (%) (Auto) , Basophils (%) (Auto) , Neutrophils % (Manual) [Pending], Lymphocytes % (Manual) [Pending], Platelet Estimate [Pending], Platelet Morphology [Pending], Sodium Level 130L, Potassium Level 5.8H, Chloride Level 100, Carbon Dioxide Level 11L, Anion Gap 19H, Blood Urea Nitrogen 66H, Creatinine 6.7H, Estimat Glomerular Filtration Rate 7.0, Glucose Level 126H, Calcium Level 8.0L 10/7/18 05:50: Prothrombin Time 14.8H, Prothromb Time International Ratio 1.4H, Sodium Level 131L, Potassium Level 5.5H, Chloride Level 100, Carbon Dioxide Level 13L, Anion Gap 18H, Blood Urea Nitrogen 65H, Creatinine 6.7H, Estimat Glomerular Filtration Rate 7.0, Glucose Level 131H, Lactic Acid Level 6.30H, Calcium Level 7.7L, Total Bilirubin 4.2H, Direct Bilirubin 2.7H, Aspartate Amino Transf (AST/ SGOT) 88H, Alanine Aminotransferase (ALT/SGPT) 44, Alkaline Phosphatase 114, Ammonia 68H, Total Protein 7.0, Albumin 1.9L, Globulin 5.1, Albumin/Globulin Ratio 0.4L, Triglycerides Level 70, Cholesterol Level 170, LDL Cholesterol 111H , HDL Cholesterol 38L, Cholesterol/HDL Ratio 4.5H, Thyroid Stimulating Hormone ( TSH) 1.702 Height (Feet): 5 Height (Inches): 3.00 Weight (Pounds): 297 General Appearance: mild distress, morbidly obese EENT: normal ENT inspection, scleral icterus Neck: normal alignment Cardiovascular: normal rate, regular rhythm Respiratory/Chest: lungs clear, normal breath sounds Abdomen: non tender, soft Edema: 4+ Arm (L), 4+ Arm (R), 4+ Leg (L), 4+ Leg (R), 4+ Pedal (L), 4+ Pedal ( R), 4+ Generalized Amos Pinon MD Aug 18, 2018 07:56
[2018-08-18] MEDS: Morphine Sulfate 2mg/ml Inj IVP PRN (08:44)
[2018-08-18] MEDS: Sodium Bicarbonate 150 ML in D5W 1000ml 1,000 ML IV SCH (11:02)
--- NOTE | 2018-08-18 14:15 | History and Physical Report ---
DATE OF ADMISSION: 08/17/2018 TIME: 8 a.m. CONSULTANTS: 1. Jose Roberto Burleson M.D. 2. Christopher Rodriguez M.D. 3. Laz Monroy M.D. 4. Abimael Ware M.D. CHIEF COMPLAINT: UTI, sepsis, anemia, LENI, alcoholic cirrhosis, and bleeding esophageal varices. BRIEF HISTORY: This is a 38-year-old female presents to [place] yesterday with history of increased abdominal pain, was found to have UTI, sepsis, and esophageal variceal bleed and admitted to ICU. Currently, O2 NC, slightly lethargic in bed, complaining of general pain in ICU and slight short of breath. PAST MEDICAL HISTORY: Includes LENI, alcoholic cirrhosis, and esophageal varices. PAST SURGICAL HISTORY: None. MEDICATIONS: Include cefepime, furosemide, octreotide, MiraLAX, zolpidem, metronidazole, pantoprazole, and lactulose. ALLERGIES: Lorazepam and penicillin. SOCIAL HISTORY: Positive smoke. Positive alcohol. No intravenous drug abuse. FAMILY HISTORY: Noncontributory. PHYSICAL EXAMINATION: GENERAL: Slightly anxious in bed, oriented x3, in slight distress secondary to pain. VITAL SIGNS: Temperature is 97, pulse 69, respirations 15, and blood pressure 90/33. CARDIOVASCULAR: No murmurs. LUNGS: Poor air exchange. ABDOMEN: Bowel sounds distant. EXTREMITIES: No cyanosis or clubbing. 1+ edema. NEUROLOGIC: The patient moves all extremities, slightly weak. LABORATORY AND DIAGNOSTIC DATA: Labs at this time show white count 12.9, hemoglobin and hematocrit 6.7/21, and platelets . BMP shows sodium 131, potassium 5.5, BUN and creatinine 65/6.7, and glucose 131. Ammonia 68. Albumin 1.9. INR is 1.4 and PTT is 38. Urinalysis show 3+ leukocyte esterase. ASSESSMENT: 1. Esophageal varices. 2. Anemia. 3. UTI. 4. Sepsis. 5. Alcoholic cirrhosis. 6. LENI. 7. Edema. 8. Malnutrition. 9. Obesity. PLAN: 1. ICU care. 2. O2 and pulmonary treatment. 3. Transfuse p.r.n. 4. Antibiotics per Infectious Disease. 5. Dietary followup. 6. Hematology follow with Dr. Hernandez. 7. CBC and BMP in the morning. Chauncey Fuentes D.O. DR: NICOLASA JOB#: [id number] CC:
--- NOTE | 2018-08-18 14:33 | General Progress Note ---
Assessment/Plan Assessment/Plan Assessment - EtOH cirrhosis - UGIB - Acute renal failure - severe hyperkalemia - lactic acidosis - anemia - thrombocytopenia - hepatic encephalopathy - critical Recommendations - po as tolerated - Sandostatin gtt - PPI - Albumin trial - Await urine Na - Abx - optimize Cr / lactic acidosis / K levels - EGD with EBL in am Subjective Allergies: Coded Allergies: LORAZEPAM (Verified Allergy, Unknown, 05/21/18) PENICILLINS (Verified Allergy, Unknown, 05/21/18) Subjective Above noted liquid dark / dark-green stools (rectal tube) getting another unit of RBC today K down to 5.5 Platelets holding UOP only 50 cc yesterday BP borderline, but no resting tachycardia Urine Na pending patient agreeable to EGD message left with mother Objective Last 24 Hour Vital Signs Date Time Temp Pulse Resp B/P (MAP) Pulse Ox O2 Delivery O2 Flow Rate FiO2 08/18/18 12:00 Nasal Cannula 2.0 08/18/18 12:00 81 08/18/18 10:00 74 12 96/37 (56) 100 08/18/18 09:00 73 13 98/39 (58) 100 08/18/18 08:00 72 08/18/18 08:00 Nasal Cannula 2.0 08/18/18 08:00 97.5 72 14 93/33 (53) 100 97.5 08/18/18 07:00 71 15 90/33 (52) 100 08/18/18 06:00 71 16 90/32 (51) 100 08/18/18 05:00 69 15 88/38 (55) 100 08/18/18 04:00 Nasal Cannula 2.0 08/18/18 04:00 97.7 69 14 92/41 (58) 100 97.7 08/18/18 04:00 68 08/18/18 03:00 68 14 93/37 (55) 100 08/18/18 02:00 71 13 93/38 (56) 100 08/18/18 01:00 70 14 98/40 (59) 100 08/18/18 00:00 97.6 68 14 95/32 (53) 100 97.6 08/18/18 00:00 69 08/18/18 00:00 Nasal Cannula 2.0 08/17/18 23:00 69 15 96/39 (58) 100 08/17/18 22:00 70 15 98/37 (57) 100 08/17/18 21:00 72 17 97/34 (55) 100 08/17/18 20:00 Room Air 08/17/18 20:00 69 08/17/18 20:00 97.5 68 14 89/29 (49) 100 97.5 08/17/18 19:00 69 15 96/47 (63) 100 08/17/18 18:00 67 14 92/60 (71) 100 08/17/18 17:00 68 15 98/46 (63) 100 08/17/18 16:48 Room Air 08/17/18 16:12 99.0 73 18 91/49 100 Room Air 21 99.0 08/17/18 16:00 97.5 70 14 100/51 (67) 100 97.5 Intake and Output 08/17/18 08/18/18 19:00 07:00 Intake Total 250 ml 1625 ml Output Total 50 ml 100 ml Balance 200 ml 1525 ml Intake Oral 200 ml 150 ml IV Total 50 ml 1225 ml Blood Product 250 ml Stool Total 100 ml Emesis 50 ml # Voids 1 # Bowel Movements 1 Laboratory Tests 08/17/18 15:24: Ammonia 99H 08/17/18 16:45: White Blood Count 15.5H, Red Blood Count 1.84L, Hemoglobin 6.4*L, Hematocrit 19.9L, Mean Corpuscular Volume 108H, Mean Corpuscular Hemoglobin 34.6H, Mean Corpuscular Hemoglobin Concent 31.9L, Red Cell Distribution Width 18.7H, Platelet Count 55L, Mean Platelet Volume 11.5H, Neutrophils (%) (Auto) , Lymphocytes (%) (Auto) , Monocytes (%) (Auto) , Eosinophils (%) (Auto) , Basophils (%) (Auto) , Differential Total Cells Counted 100, Neutrophils % ( Manual) 83H, Lymphocytes % (Manual) 10L, Monocytes % (Manual) 4, Eosinophils % ( Manual) 0, Basophils % (Manual) 1, Band Neutrophils 2, Platelet Estimate DecreasedL, Platelet Morphology Normal, Giant Platelets Occasional, Hypochromasia 1+, Anisocytosis 1+, Macrocytosis Occasional, Sodium Level 129L, Potassium Level 6.2*H, Chloride Level 100, Carbon Dioxide Level 13L, Anion Gap 16H, Blood Urea Nitrogen 66H, Creatinine 6.6H, Estimat Glomerular Filtration Rate 7.1, Glucose Level 88, Calcium Level 7.7L 08/17/18 17:30: Potassium Level 6.5*H 08/17/18 23:45: White Blood Count 14.1H, Red Blood Count 2.18L, Hemoglobin 7.3L, Hematocrit 23.8L, Mean Corpuscular Volume 109H, Mean Corpuscular Hemoglobin 33.6H, Mean Corpuscular Hemoglobin Concent 30.9L, Red Cell Distribution Width 18.9H, Platelet Count 50L, Mean Platelet Volume 11.1H, Neutrophils (%) (Auto) , Lymphocytes (%) (Auto) , Monocytes (%) (Auto) , Eosinophils (%) (Auto) , Basophils (%) (Auto) , Differential Total Cells Counted 100, Neutrophils % ( Manual) 76H, Lymphocytes % (Manual) 15L, Monocytes % (Manual) 4, Eosinophils % ( Manual) 1, Basophils % (Manual) 0, Band Neutrophils 4, Platelet Estimate DecreasedL, Platelet Morphology Normal, Hypochromasia 1+, Anisocytosis 1+, Macrocytosis 1+, Sodium Level 130L, Potassium Level 6.0*H, Chloride Level 101, Carbon Dioxide Level 12L, Anion Gap 16H, Blood Urea Nitrogen 66H, Creatinine 6.6H, Estimat Glomerular Filtration Rate 7.1, Glucose Level 112H, Calcium Level 7.6L, Lactic Acid Level 6.40H 08/18/18 05:35: White Blood Count 12.9H, Red Blood Count 2.03L, Hemoglobin 6.7*L, Hematocrit 21.5L, Mean Corpuscular Volume 106H, Mean Corpuscular Hemoglobin 32.9H, Mean Corpuscular Hemoglobin Concent 31.0L, Red Cell Distribution Width 19.2H, Platelet Count 52L, Mean Platelet Volume 12.5H, Neutrophils (%) (Auto) , Lymphocytes (%) (Auto) , Monocytes (%) (Auto) , Eosinophils (%) (Auto) , Basophils (%) (Auto) , Differential Total Cells Counted 100, Neutrophils % ( Manual) 83H, Lymphocytes % (Manual) 13L, Monocytes % (Manual) 4, Eosinophils % ( Manual) 0, Basophils % (Manual) 0, Band Neutrophils 0, Platelet Estimate DecreasedL, Platelet Morphology , Giant Platelets Occasional, Hypochromasia 1+, Anisocytosis 2+, Macrocytosis 1+, Sodium Level 130L, Potassium Level 5.8H, Chloride Level 100, Carbon Dioxide Level 11L, Anion Gap 19H, Blood Urea Nitrogen 66H, Creatinine 6.7H, Estimat Glomerular Filtration Rate 7.0, Glucose Level 126H, Calcium Level 8.0L 08/18/18 05:50: Sodium Level 131L, Potassium Level 5.5H, Chloride Level 100, Carbon Dioxide Level 13L, Anion Gap 18H, Blood Urea Nitrogen 65H, Creatinine 6.7H, Estimat Glomerular Filtration Rate 7.0, Glucose Level 131H, Calcium Level 7.7L, Reticulocyte Count 0.6, Prothrombin Time 14.8H, Prothromb Time International Ratio 1.4H, Lactic Acid Level 6.30H, Total Bilirubin 4.2H, Direct Bilirubin 2.7H , Aspartate Amino Transf (AST/SGOT) 88H, Alanine Aminotransferase (ALT/SGPT) 44 , Alkaline Phosphatase 114, Ammonia 68H, Total Protein 7.0, Albumin 1.9L, Globulin 5.1, Albumin/Globulin Ratio 0.4L, Triglycerides Level 70, Cholesterol Level 170, LDL Cholesterol 111H, HDL Cholesterol 38L, Cholesterol/HDL Ratio 4.5H , Thyroid Stimulating Hormone (TSH) 1.702, HIV (1&2) Antibody Rapid Negative 08/18/18 11:00: Lactic Acid Level 6.70H Height (Feet): 5 Height (Inches): 3.00 Weight (Pounds): 297 Objective WDWN AA woman NCAT supple CTA RRR Abd soft ND No edema alert and conversant Carlos Sandhu MD Aug 18, 2018 14:33
--- NOTE | 2018-08-18 15:16 | Pulmonolgy Critical Care Note ---
Critical Care - Asmt/Plan Assessment/Plan: PULMONARY CRITICAL CARE CONSULTATION NOTE HPI Patient is a 38 yo female with hx of alcoholic liver cirrhosis, alcohol dependence, muscle weakness, pneumonia, anemia, hypertension presents from [facility] nursing facility. PCP is Dr. Reinaldo Kevin. She presents with abdominal pain and hypotension. Severe abdominal pain diffuse Patient is poor historian. Hx is limited. SNF documentation reviewed. Allergies: Coded Allergies: LORAZEPAM (Verified Allergy, Unknown, 05/21/18) PENICILLINS (Verified Allergy, Unknown, 05/21/18) Patient History Past Medical History: old chart reviewed Social History: Reports: alcohol use Reviewed Nursing Documentation: PMH: Agreed; PSxH: Agreed Nursing Documentation-PMH Past Medical History: No History, Except For Hx Hypertension: No Hx Pacemaker: No Hx Asthma: Yes Hx COPD: No Hx Diabetes: No Hx Cancer: No Hx Gastrointestinal Problems: No Hx Dialysis: No Hx Neurological Problems: Yes - + Hx Cerebrovascular Accident: No Hx Seizures: No Hx Numbness: Yes - legs Review of Systems Constitutional: Reports: malaise Gastrointestinal: Reports: abdominal pain All Other Systems: limited - poor historian Physical Exam Vital Signs Current VS noted Date Time Temp Pulse Resp B/P (MAP) Pulse Ox O2 Delivery O2 Flow Rate FiO2 08/17/18 11:14 99.0 74 18 127/96 98 Room Air 99.0 Sp02 EP Interpretation: reviewed, normal General Appearance: no apparent distress, alert, lethargic, Chronically Ill Eyes: bilateral eye normal inspection, bilateral eye PERRL ENT: normal pharynx, no angioedema, normal voice, dry mucus membranes Respiratory: chest non-tender, lungs clear, normal breath sounds, no rhonchi, no respiratory distress Cardiovascular #1: regular rate, rhythm, edema Gastrointestinal: non tender, soft, no peritonitis Rectal: heme positive stool, other - dark brown stool heme positive Musculoskeletal: other - diffuse severe pitting edeam Neurologic: alert, oriented - x 2 Psychiatric: mood/affect normal Medical Decision Making Diagnostic Impression: Primary Impression: GI bleed Additional Impressions: Hypotension LENI (acute kidney injury) Plan 1. Hypotension - IVF/TFN PRN, suspect active GI bleed with hx active bleeding esophageal varices on previous encounter according to GI consultation. 2 units of RBCs ordered, octreotide drip ordered, IVF given, dark brown stool in exam hemoccult positive, GI following 2. possible sepsis with UTI and elevated lactic acid, broad spectrum abx ordered 3. LENI due to critcal illness multiple reasons for kidney hypoperfusion as above, IVF, hyperkalemia treatment initiated 4. hx of alcoholic cirrhosis and encephalopathy 5. PPx 6. PTAMeds 7. O2 PRN EKG Diagnostic Results EKG Time: 12:21 Rate: normal Rhythm: NSR ST Segments: no acute changes Other Impression first degree AV block no ST elevation +artifact CXR: Increased interstitial markings Critical Care - Objective Last 24 Hour Vital Signs Date Time Temp Pulse Resp B/P (MAP) Pulse Ox O2 Delivery O2 Flow Rate FiO2 08/18/18 12:00 Nasal Cannula 2.0 08/18/18 12:00 81 08/18/18 10:00 74 12 96/37 (56) 100 08/18/18 09:00 73 13 98/39 (58) 100 08/18/18 08:00 72 08/18/18 08:00 Nasal Cannula 2.0 08/18/18 08:00 97.5 72 14 93/33 (53) 100 97.5 08/18/18 07:00 71 15 90/33 (52) 100 08/18/18 06:00 71 16 90/32 (51) 100 08/18/18 05:00 69 15 88/38 (55) 100 08/18/18 04:00 Nasal Cannula 2.0 08/18/18 04:00 97.7 69 14 92/41 (58) 100 97.7 08/18/18 04:00 68 08/18/18 03:00 68 14 93/37 (55) 100 08/18/18 02:00 71 13 93/38 (56) 100 08/18/18 01:00 70 14 98/40 (59) 100 08/18/18 00:00 97.6 68 14 95/32 (53) 100 97.6 08/18/18 00:00 69 08/18/18 00:00 Nasal Cannula 2.0 08/17/18 23:00 69 15 96/39 (58) 100 08/17/18 22:00 70 15 98/37 (57) 100 08/17/18 21:00 72 17 97/34 (55) 100 08/17/18 20:00 Room Air 08/17/18 20:00 69 08/17/18 20:00 97.5 68 14 89/29 (49) 100 97.5 08/17/18 19:00 69 15 96/47 (63) 100 08/17/18 18:00 67 14 92/60 (71) 100 08/17/18 17:00 68 15 98/46 (63) 100 08/17/18 16:48 Room Air 08/17/18 16:12 99.0 73 18 91/49 100 Room Air 21 99.0 08/17/18 16:00 97.5 70 14 100/51 (67) 100 97.5 Micro: Microbiology Date/Time Source Procedure Growth Status 08/17/18 11:55 Urine,Clean Catch Urine Culture - Preliminary Gram Negative Bacillus 1 Gram Negative Bacillus 2 Resulted Critical Care - Subjective ROS Limited/Unobtainable: No Condition: critical FI02: 21 Sputum Amount: None I&O: Intake and Output 08/17/18 08/18/18 19:00 07:00 Intake Total 250 ml 1625 ml Output Total 50 ml 100 ml Balance 200 ml 1525 ml Intake Oral 200 ml 150 ml IV Total 50 ml 1225 ml Blood Product 250 ml Stool Total 100 ml Emesis 50 ml # Voids 1 # Bowel Movements 1 Jean Eric MD Aug 18, 2018 15:16
[2018-08-18 19:04] LABS: FERRITIN 1125 NG/ML (8-388); LACTATE DEHYDROGENASE 210 U/L (81-234)
[2018-08-18 20:13] LABS: % IRON SATURATION 117 % (15-50); IRON 154 ug/dL (50-175)
[2018-08-18 20:18] LABS: TOTAL IRON BINDING CAPACITY 132 ug/dL (250-450)
--- NOTE | 2018-08-18 20:33 | Consultation ---
Consult Note Consult Note HEMATOLOGY-ONCOLOGY CONSULTATION REQUESTING PHYSICIAN: Chauncey Salinas DATE OF CONSULTATION: 08/18/2018 REASON FOR CONSULTATION: Evaluation of anemia. HISTORY OF PRESENT ILLNESS: The patient is a 38-year-old female known to me with a hsitory of ACD. The patient does have known alcoholic cirrhosis and had been recently discharged with stable Hgb. The patient now presents to the emergency room for further evaluation and care from her longterm facility not feeling well with diffuse abdominal pain when noted. She is currently hypotensive, fatigued, but she is awake and coherent. I have been consulted for the evaluation and management of anemia. Current hgb at 6.7. Previous w/u has been reviewed. Since admission, pt has been transfused 08/17 and 08/18. ALLERGIES: Lorazepam and penicillins. PAST MEDICAL HISTORY: 1. Acute kidney injury. 2. Alcoholic cirrhosis. 3. Encephalopathy. 4. Alcohol dependence. 5. Pneumonia. 6. Anemia. 7. Hypertension. SOCIAL HISTORY: Previous heavy consumption of alcohol. No illicit drug use or current tobacco use. FAMILY HISTORY: Positive for hypertension. PAST SURGICAL HISTORY: Noncontributory. REVIEW OF SYSTEMS: NEUROLOGIC: The patient denies headache, change in vision, syncope, or presyncopal episodes. CARDIOVASCULAR: No current chest pain, palpitations, or angina. PULMONARY: No difficulty breathing, productive cough, or sputum. GASTROINTESTINAL/GENITOURINARY: No diarrhea, nausea, abdominal pain. ENDOCRINOLOGY: No night sweats, fevers, or chills. MUSCULOSKELETAL: The patient is feeling weak, tired, and fatigued. PHYSICAL EXAMINATION: VITAL SIGNS: Blood pressure 98/46, 100% oxygen saturation on room air, pulse 68, respiratory rate 15, and temperature 99.9 degrees. GENERAL: The patient is awake and alert to all four spheres. HEENT: Extraocular muscles are intact. No lymphadenopathy noted. Nonicteric sclerae. CARDIOVASCULAR: S1 and S2. No rubs or gallops. PULMONARY: Clear to auscultation bilaterally. No rales, rhonchi or wheezes. ABDOMEN: Distended. Nontender. Positive fluid wave shift. EXTREMITIES: 4+ pitting edema in all extremities. LABORATORY DATA: Labs dated 08/17/2018, sodium 129, potassium 6.2, bicarb 13, BUN 66, and creatinine 6.6. Total bilirubin of 3.3, direct of 2.4. Calcium 7.7. Lactic acid 5.9. Ammonia level 99. Assessment/Plan # Anemia of chronic disease, multifactorial. --> Previous w/u has been reviewed. --> Will trend CBC daily. --> Hgb goal above 7 --> Blood tx: 08/17,08/18 # Thrombocytopenia. Potential causes multifactorial, evaluate liver and viral etiologies. --> Have ordered hep panel and HIV --> US abd has been ordered to eval for cirrhosis and hsm --> Peripheral smear ordere dto eval for blasts --> Abx and other meds have been reviewed. --> Ok for ppx if heparin >50k with either heparin or lovenox # Acute kidney injury secondary to intravascular volume depletion along with ischemic acute tubular necrosis from hypotension. Nephro following. Appreciate recs. # Hyperkalemia secondary to renal insufficiency and gastrointestinal bleed. --> At this time, potassium 6.2. The patient was given Kayexalate 60 g already. 20 mg intravenous Lasix has been ordered. # Gastrointestinal bleed. Hemoglobin currently 6.4, previously 5.9. --> Gastroenterology to evaluate and manage. # Hepatic encephalopathy with liver failure secondary to alcoholic cirrhosis, being managed by Gastroenterology. I GREATLY APPRECIATE THE CONSULTATION. Michael Hernandez MD Aug 18, 2018 20:33
[2018-08-18] MEDS ORDERED: Cefepime HCl 1 GM in D5W 55 ML IV SCH (21:00)
--- NOTE | 2018-08-18 21:58 | Consultation ---
Consult Note Consult Note [id number] Laz Monroy MD Aug 18, 2018 21:58
[2018-08-19] VITALS (22 sets, daily range): BP systolic 87–106; BP diastolic 33–50
[2018-08-19] MEDS: Lactulose 20gm/30ml UDC ORAL SCH ×4 (00:20→18:04)
[2018-08-19] MEDS: Octreotide Acetate 500 MCG in Sodium Chloride 500ML 499 ML IV SCH ×3 (01:37→18:41)
[2018-08-19] MEDS: Sodium Bicarbonate 150 ML in D5W 1000ml 1,000 ML IV SCH ×2 (02:10→05:06)
[2018-08-19] MEDS: Pantoprazole Inj IVP SCH ×2 (06:05→18:05)
[2018-08-19 06:26] LABS: HEMATOCRIT 21.7 % (37.0-47.0); MEAN CORPUSCULAR VOLUME 102 FL (80-99); PLATELET COUNT 38 K/UL (150-450); RED BLOOD COUNT 2.13 M/UL (4.20-5.40); RED CELL DISTRIBUTION WIDTH 19.1 % (11.6-14.8); WHITE BLOOD COUNT 12.6 K/UL (4.8-10.8)
[2018-08-19 06:46] LABS: ALANINE AMINOTRANSFERASE 44 U/L (12-78); ALBUMIN 1.7 G/DL (3.4-5.0); ALBUMIN/GLOBULIN RATIO 0.3 (1.0-2.7); ALKALINE PHOSPHATASE 110 U/L (46-116); ANION GAP 19 mmol/L (5-15); ASPARTATE AMINO TRANSFERASE 88 U/L (15-37); BILIRUBIN,TOTAL 3.9 MG/DL (0.2-1.0); BLOOD UREA NITROGEN 66 mg/dL (7-18); CALCIUM 7.5 MG/DL (8.5-10.1); CARBON DIOXIDE 14 MMOL/L (21-32); CHLORIDE 102 MMOL/L (98-107); CREATININE 6.9 MG/DL (0.55-1.30); SODIUM 134 MMOL/L (136-145)
[2018-08-19 06:51] LABS: INR 1.5 (0.9-1.1)
[2018-08-19 07:14] LABS: BILIRUBIN,DIRECT 2.5 MG/DL (0.0-0.3)
--- NOTE | 2018-08-19 07:32 | General Progress Note ---
Assessment/Plan Assessment/Plan # Thrombocytopenia. Is most likely related to underlying liver disease. She does have evidence of hepatic cirrhosis, with surface nodularity an increased echogenicity. Evidence of portal hypertension, with ascites, splenomegaly, and flow reversal within the main and right portal vein. Evidence of prior cholecystectomy. Negative for dilated ducts. Prior CT and Us have been reviewed , hepatitis and hiv are both negative. --> Peripheral smear ordere dto eval for blasts --> Abx and other meds have been reviewed. --> hold off heparin, asa, or plavix --> Transfuse plts if plt count >10k or if 20k and with fever # Anemia due to gastrointestinal bleed. Hemoglobin currently 6.4, previously 5.9. --> Gastroenterology to evaluate and manage. # Coagulopathy is likely related to underlying liver disease --> no evidence of bleeding hold off unless bleeding is noted --> VIt K or ffp before procedure # Anemia of chronic disease, multifactorial --> Previous w/u has been reviewed. --> Will trend CBC daily. --> Hgb goal above 7 --> Blood tx: 08/17,08/18 # Acute kidney injury secondary to intravascular volume depletion along with ischemic acute tubular necrosis from hypotension. --> Nephro following. Appreciate recs. # Hyperkalemia secondary to renal insufficiency and gastrointestinal bleed. --> At this time, potassium 6.2. The patient was given Kayexalate 60 g already. 20 mg intravenous Lasix has been ordered. # Hepatic encephalopathy with liver failure secondary to alcoholic cirrhosis, being managed by Gastroenterology Greatly appreciate consultation! Subjective Constitutional: Denies: no symptoms, chills, diaphoresis, fever, malaise, weakness, other HEENT: Denies: no symptoms, eye pain, blurred vision, tearing, double vision, ear pain, ear discharge, nose pain, nose congestion, throat pain, throat swelling, mouth pain, mouth swelling, other Cardiovascular: Denies: no symptoms, chest pain, edema, irregular heart rate, lightheadedness, palpitations, syncope, other Respiratory: Denies: no symptoms, cough, orthopnea, shortness of breath, SOB with excertion, SOB at rest, sputum, stridor, wheezing, other Gastrointestinal/Abdominal: Denies: no symptoms, abdomen distended, abdominal pain, black stools, tarry stools, blood in stool, constipated, diarrhea, difficulty swallowing, nausea, poor appetite, poor fluid intake, rectal bleeding , vomiting, other Genitourinary: Denies: no symptoms, burning, discharge, frequency, flank pain, hematuria, incontinence, pain, urgency, other Neurologic/Psychiatric: Denies: no symptoms, anxiety, depressed, emotional problems, headache, numbness, paresthesia, pre-existing deficit, seizure, tingling, tremors, weakness, other Endocrine: Denies: no symptoms, excessive sweating, flushing, intolerance to cold, intolerance to heat, increased hunger, increased thirst, increased urine, unexplained weight gain, unexplained weight loss, other Allergies: Coded Allergies: LORAZEPAM (Verified Allergy, Unknown, 05/21/18) PENICILLINS (Verified Allergy, Unknown, 05/21/18) Subjective no events, monitoring labs, feeling generally weak, and wants a blanket to cover herself Objective Last 24 Hour Vital Signs Date Time Temp Pulse Resp B/P (MAP) Pulse Ox O2 Delivery O2 Flow Rate FiO2 08/19/18 07:00 97.4 74 10 91/40 (57) 100 97.4 08/19/18 06:00 74 13 91/36 (54) 100 08/19/18 05:00 76 10 87/37 (54) 100 08/19/18 04:00 76 08/19/18 04:00 Nasal Cannula 2.0 08/19/18 04:00 76 10 91/38 (55) 100 08/19/18 03:00 97.5 74 10 95/34 (54) 100 97.5 08/19/18 02:00 76 10 96/36 (56) 100 08/19/18 01:00 76 10 100/33 (55) 100 08/19/18 00:00 76 08/19/18 00:00 75 10 95/36 (55) 100 08/19/18 00:00 Nasal Cannula 2.0 08/18/18 23:00 75 10 97/36 (56) 100 08/18/18 22:00 74 9 95/36 (55) 100 08/18/18 21:00 74 9 92/37 (55) 100 08/18/18 20:00 75 08/18/18 20:00 74 9 96/39 (58) 100 08/18/18 20:00 Nasal Cannula 2.0 08/18/18 19:00 97.8 75 9 98/41 (60) 100 97.8 08/18/18 18:00 74 9 99/36 (57) 100 08/18/18 17:00 74 6 95/40 (58) 100 08/18/18 16:00 73 08/18/18 16:00 Nasal Cannula 2.0 08/18/18 16:00 97.1 73 8 92/36 (54) 100 97.1 08/18/18 15:00 73 13 96/37 (56) 100 08/18/18 14:00 73 12 90/32 (51) 100 08/18/18 13:00 74 13 90/32 (51) 100 08/18/18 12:00 Nasal Cannula 2.0 08/18/18 12:00 97.2 74 16 94/30 (51) 100 97.2 08/18/18 12:00 81 08/18/18 11:00 73 13 98/33 (54) 100 08/18/18 10:00 74 12 96/37 (56) 100 08/18/18 09:00 73 13 98/39 (58) 100 08/18/18 08:00 72 08/18/18 08:00 Nasal Cannula 2.0 08/18/18 08:00 97.5 72 14 93/33 (53) 100 97.5 Intake and Output 08/18/18 08/19/18 19:00 07:00 Intake Total 1700 ml 1755 ml Output Total 200 ml 210 ml Balance 1500 ml 1545 ml IV Total 1700 ml 1755 ml Output Urine Total 200 ml 10 ml Stool Total 200 ml Laboratory Tests 08/18/18 11:00: Lactic Acid Level 6.70H 08/18/18 18:15: Lactic Acid Level 6.70H, Sickle Cell Screen [Pending], Haptoglobin [Pending], PTT Mixing Study [Pending], APTT Patient/Control Mix [Pending], Mix PTT Incubation Time [Pending], Mix PTT Normal/Saline 1:1 Immediate [Pending], Thrombin Time Normal Plasma [Pending], Iron Level 154, Total Iron Binding Capacity 132L, Percent Iron Saturation 117H, Unsaturated Iron Binding -22L, Soluble Transferrin Receptor [Pending], Ferritin 1125H, Lactate Dehydrogenase 210, Vitamin B12 Level 1562H, Folate 17.9 08/19/18 00:30: Urine Random Sodium 114H 08/19/18 01:20: Lactic Acid Level 5.80H 08/19/18 05:30: White Blood Count 12.6H, Red Blood Count 2.13L, Hemoglobin 7.0L, Hematocrit 21.7L, Mean Corpuscular Volume 102H, Mean Corpuscular Hemoglobin 33.0H, Mean Corpuscular Hemoglobin Concent 32.3, Red Cell Distribution Width 19.1H, Platelet Count 38L, Mean Platelet Volume 9.8, Neutrophils (%) (Auto) , Lymphocytes (%) (Auto) , Monocytes (%) (Auto) , Eosinophils (%) (Auto) , Basophils (%) (Auto) , Neutrophils % (Manual) [Pending], Lymphocytes % (Manual) [Pending], Platelet Estimate [Pending], Platelet Morphology [Pending], Prothrombin Time 15.1H, Prothromb Time International Ratio 1.5H, Sodium Level 134L, Potassium Level 5.0, Chloride Level 102, Carbon Dioxide Level 14L, Anion Gap 19H, Blood Urea Nitrogen 66H, Creatinine 6.9H, Estimat Glomerular Filtration Rate 6.8, Glucose Level 129H, Lactic Acid Level [Pending], Calcium Level 7.5L, Total Bilirubin 3.9H, Direct Bilirubin 2.5H, Aspartate Amino Transf (AST/SGOT) 88H, Alanine Aminotransferase (ALT/SGPT) 44, Alkaline Phosphatase 110 , Total Protein 6.6, Albumin 1.7L, Globulin 4.9, Albumin/Globulin Ratio 0.3L Height (Feet): 5 Height (Inches): 3.00 Weight (Pounds): 303 General Appearance: alert EENT: normal ENT inspection Neck: supple Cardiovascular: regular rhythm Respiratory/Chest: normal breath sounds Abdomen: no organomegaly Extremities: non-tender Edema: no edema noted Leg (L), no edema noted Leg (R) Edema: trace edema Neurologic: alert Skin: normal pigmentation Michael Hernandez MD Aug 19, 2018 07:32
--- NOTE | 2018-08-19 08:22 | Nephrology Progress Note ---
Assessment/Plan Assessment/Plan 1. LENI- multifact ATN ( hypotension/intravasc vol dep/?hepatorenal/Anemia) - IVFs, MAP >65mmHg - patient declining HD for now. Medical management - Renal US pending, stahl, avoid nephrotoxins 2. Hyperk+- due to RI and metabolic acidosis - K+ down to 5 - IV bicarb and lasix. Add po bicarb 3. Hepatic Failure - alocohol 4. Met Acidosis- AG/Lactic - IV bicarb + po bicarb 5. GI Bleed- octreotide, mgmt per GI Subjective Date patient seen: Aug 19, 2018 Time patient seen: 08:18 ROS Limited/Unobtainable: No Constitutional: Reports: weakness Gastrointestinal/Abdominal: Reports: abdomen distended Allergies: Coded Allergies: LORAZEPAM (Verified Allergy, Unknown, 05/21/18) PENICILLINS (Verified Allergy, Unknown, 05/21/18) Subjective Patient feeling ill. Declining dialysis for now Objective Last 24 Hour Vital Signs Date Time Temp Pulse Resp B/P (MAP) Pulse Ox O2 Delivery O2 Flow Rate FiO2 08/19/18 07:00 97.4 74 10 91/40 (57) 100 97.4 08/19/18 06:00 74 13 91/36 (54) 100 08/19/18 05:00 76 10 87/37 (54) 100 08/19/18 04:00 76 08/19/18 04:00 Nasal Cannula 2.0 08/19/18 04:00 76 10 91/38 (55) 100 08/19/18 03:00 97.5 74 10 95/34 (54) 100 97.5 08/19/18 02:00 76 10 96/36 (56) 100 08/19/18 01:00 76 10 100/33 (55) 100 08/19/18 00:00 76 08/19/18 00:00 75 10 95/36 (55) 100 08/19/18 00:00 Nasal Cannula 2.0 08/18/18 23:00 75 10 97/36 (56) 100 08/18/18 22:00 74 9 95/36 (55) 100 08/18/18 21:00 74 9 92/37 (55) 100 08/18/18 20:00 75 08/18/18 20:00 74 9 96/39 (58) 100 08/18/18 20:00 Nasal Cannula 2.0 08/18/18 19:00 97.8 75 9 98/41 (60) 100 97.8 08/18/18 18:00 74 9 99/36 (57) 100 08/18/18 17:00 74 6 95/40 (58) 100 08/18/18 16:00 73 08/18/18 16:00 Nasal Cannula 2.0 08/18/18 16:00 97.1 73 8 92/36 (54) 100 97.1 08/18/18 15:00 73 13 96/37 (56) 100 08/18/18 14:00 73 12 90/32 (51) 100 08/18/18 13:00 74 13 90/32 (51) 100 08/18/18 12:00 Nasal Cannula 2.0 08/18/18 12:00 97.2 74 16 94/30 (51) 100 97.2 08/18/18 12:00 81 08/18/18 11:00 73 13 98/33 (54) 100 08/18/18 10:00 74 12 96/37 (56) 100 08/18/18 09:00 73 13 98/39 (58) 100 Intake and Output 08/18/18 08/19/18 19:00 07:00 Intake Total 1700 ml 1755 ml Output Total 200 ml 210 ml Balance 1500 ml 1545 ml IV Total 1700 ml 1755 ml Output Urine Total 200 ml 10 ml Stool Total 200 ml Laboratory Tests 08/18/18 11:00: Lactic Acid Level 6.70H 08/18/18 18:15: Lactic Acid Level 6.70H, Sickle Cell Screen [Pending], Haptoglobin [Pending], PTT Mixing Study [Pending], APTT Patient/Control Mix [Pending], Mix PTT Incubation Time [Pending], Mix PTT Normal/Saline 1:1 Immediate [Pending], Thrombin Time Normal Plasma [Pending], Iron Level 154, Total Iron Binding Capacity 132L, Percent Iron Saturation 117H, Unsaturated Iron Binding -22L, Soluble Transferrin Receptor [Pending], Ferritin 1125H, Lactate Dehydrogenase 210, Vitamin B12 Level 1562H, Folate 17.9 08/19/18 00:30: Urine Random Sodium 114H 08/19/18 01:20: Lactic Acid Level 5.80H 08/19/18 05:30: White Blood Count 12.6H, Red Blood Count 2.13L, Hemoglobin 7.0L, Hematocrit 21.7L, Mean Corpuscular Volume 102H, Mean Corpuscular Hemoglobin 33.0H, Mean Corpuscular Hemoglobin Concent 32.3, Red Cell Distribution Width 19.1H, Platelet Count 38L, Mean Platelet Volume 9.8, Neutrophils (%) (Auto) , Lymphocytes (%) (Auto) , Monocytes (%) (Auto) , Eosinophils (%) (Auto) , Basophils (%) (Auto) , Differential Total Cells Counted 100, Neutrophils % ( Manual) 77H, Lymphocytes % (Manual) 19L, Monocytes % (Manual) 2, Eosinophils % ( Manual) 1, Basophils % (Manual) 1, Band Neutrophils 0, Platelet Estimate DecreasedL, Platelet Morphology Normal, Hypochromasia 3+, Anisocytosis 2+, Macrocytosis 1+, Prothrombin Time 15.1H, Prothromb Time International Ratio 1.5H , Sodium Level 134L, Potassium Level 5.0, Chloride Level 102, Carbon Dioxide Level 14L, Anion Gap 19H, Blood Urea Nitrogen 66H, Creatinine 6.9H, Estimat Glomerular Filtration Rate 6.8, Glucose Level 129H, Lactic Acid Level [Pending] , Calcium Level 7.5L, Total Bilirubin 3.9H, Direct Bilirubin 2.5H, Aspartate Amino Transf (AST/SGOT) 88H, Alanine Aminotransferase (ALT/SGPT) 44, Alkaline Phosphatase 110, Total Protein 6.6, Albumin 1.7L, Globulin 4.9, Albumin/ Globulin Ratio 0.3L Height (Feet): 5 Height (Inches): 3.00 Weight (Pounds): 303 General Appearance: lethargic EENT: normal ENT inspection Neck: normal alignment, supple Cardiovascular: normal rate, regular rhythm Respiratory/Chest: rhonchi - bilaterally Abdomen: distended Edema: 4+ Arm (L), 4+ Arm (R), 4+ Leg (L), 4+ Leg (R), 4+ Pedal (L), 4+ Pedal ( R), 4+ Generalized Amos Pinon MD Aug 19, 2018 08:22
--- NOTE | 2018-08-19 09:00 | Consultation ---
DATE OF CONSULTATION: 08/19/2018 "NOTE: POOR AUDIO QUALITY" INFECTIOUS DISEASES CONSULTATION CONSULTING PHYSICIAN: Laz Monroy M.D. REFERRING PHYSICIAN: Chauncey Fuentes D.O. REASON FOR CONSULTATION: Evaluation of the patient for pneumonia, UTI, sepsis, and antibiotic management. HISTORY OF PRESENT ILLNESS: The patient is a 38-year-old female with multiple medical problems, was brought to the hospital because of weakness and hypertension. The patient at this time was being admitted in the ICU. The patient was found to be anemic. Workup UTI. At the time of admission, also the patient had upper GI bleed, probably from esophageal varices and an EGD is scheduled for tomorrow. Infectious Disease consultation has been requested for further evaluation of the patient and antibiotic management. The patient overall is a poor historian. Much of the information is gathered through the chart and speaking to staff. PAST MEDICAL HISTORY: Significant for, 1. Renal insufficiency. 2. Alcoholic cirrhosis. 3. Esophageal varices. MEDICATIONS: Cefepime and Flagyl. ALLERGIES: History of allergy to penicillin. SOCIAL HISTORY: Significant for smoking. No history of alcohol abuse. No history of IV drug abuse. FAMILY HISTORY: Not contributing. PHYSICAL EXAMINATION: VITAL SIGNS: Temperature 97.9 degrees, pulse 86, respiratory rate 18, and blood pressure 99/36. HEENT: No pale conjunctivae. . CHEST: Clear. HEART: S1 and S2. ABDOMEN: Obese and nontender. EXTREMITIES: No cyanosis at this time. There is no edema. NEUROLOGIC: Awake, but lethargic. LABORATORY AND DIAGNOSTIC DATA: White blood cells 12.9, hemoglobin 6.7, and platelets 52,000. UA 60 to 80 white blood cells. Hepatitis panel back in July has been negative. Also, HIV has been negative. 6.7. Urine culture is growing gram-negative rods x2. She has a history of pulmonary venous congestion. ASSESSMENT: The patient is a 38-year-old female with: 1. Probable sepsis. 2. Leukocytosis. 3. Urinary tract infection. 4. History of hepatitis panel and HIV serology negative. 5. Leukocytosis. 6. Afebrile. 7. bacteremia. 8. Acute renal insufficiency. 9. Rule out probable spontaneous bacterial peritonitis. PLAN: 1. Continue the patient on cefepime and Flagyl. 2. Monitor BMP. 3. Monitor cultures (blood, urine). 4. tomorrow. 5. EGD tomorrow. 6. Nephrology to follow on renal insufficiency. 7. Based on the patient's clinical course and labs, we will do further recommendation. Thank you, Dr. Chauncey Fuentes, for allowing me to see this patient. I will follow the patient with you during this hospitalization. Laz Monroy M.D. DR: JOSH JOB#: [id number] CC:
--- NOTE | 2018-08-19 09:16 | Diagnostic Imaging Report ---
Indication:Elevated Bun and Creatinine. Technique: Grayscale and duplex Doppler imaging of the kidneys performed. Comparison: None Findings: The size, contour, and echogenicity of both kidneys are within normal limits. The left kidney is not well seen. Right kidney is 12 cm. Left kidney is about 10.6 cm in length. There is no hydronephrosis. The IVC and urinary bladder are unremarkable. IMPRESSION: Negative exam
[2018-08-19] MEDS ORDERED: Phytonadione 10 mg/mL 1ml amp SUBQ SCH (09:30)
[2018-08-19] MEDS: Sodium Bicarbonate 650mg Tab ORAL SCH ×3 (09:53→18:05)
--- NOTE | 2018-08-19 09:55 | Pulmonolgy Critical Care Note ---
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 - Objective Last 24 Hour Vital Signs Date Time Temp Pulse Resp B/P (MAP) Pulse Ox O2 Delivery O2 Flow Rate FiO2 08/19/18 09:00 74 12 96/37 (56) 100 08/19/18 08:00 Nasal Cannula 2.0 08/19/18 08:00 97.5 74 10 98/40 (59) 100 97.5 08/19/18 07:00 97.4 74 10 91/40 (57) 100 97.4 08/19/18 06:00 74 13 91/36 (54) 100 08/19/18 05:00 76 10 87/37 (54) 100 08/19/18 04:00 76 08/19/18 04:00 Nasal Cannula 2.0 08/19/18 04:00 76 10 91/38 (55) 100 08/19/18 03:00 97.5 74 10 95/34 (54) 100 97.5 08/19/18 02:00 76 10 96/36 (56) 100 08/19/18 01:00 76 10 100/33 (55) 100 08/19/18 00:00 76 08/19/18 00:00 75 10 95/36 (55) 100 08/19/18 00:00 Nasal Cannula 2.0 08/18/18 23:00 75 10 97/36 (56) 100 08/18/18 22:00 74 9 95/36 (55) 100 08/18/18 21:00 74 9 92/37 (55) 100 08/18/18 20:00 75 08/18/18 20:00 74 9 96/39 (58) 100 08/18/18 20:00 Nasal Cannula 2.0 08/18/18 19:00 97.8 75 9 98/41 (60) 100 97.8 08/18/18 18:00 74 9 99/36 (57) 100 08/18/18 17:00 74 6 95/40 (58) 100 08/18/18 16:00 73 08/18/18 16:00 Nasal Cannula 2.0 08/18/18 16:00 97.1 73 8 92/36 (54) 100 97.1 08/18/18 15:00 73 13 96/37 (56) 100 08/18/18 14:00 73 12 90/32 (51) 100 08/18/18 13:00 74 13 90/32 (51) 100 08/18/18 12:00 Nasal Cannula 2.0 08/18/18 12:00 97.2 74 16 94/30 (51) 100 97.2 08/18/18 12:00 81 08/18/18 11:00 73 13 98/33 (54) 100 08/18/18 10:00 74 12 96/37 (56) 100 Status: awake Condition: critical Neck: full ROM Heart: HR/BP stable Abdomen: soft, non-tender Extremities: no C/C/E Decubiti: location Micro: Microbiology Date/Time Source Procedure Growth Status 08/17/18 11:46 Blood Blood Culture - Preliminary NO GROWTH AFTER 24 HOURS Resulted 08/17/18 11:30 Blood Blood Culture - Preliminary NO GROWTH AFTER 24 HOURS Resulted 08/17/18 11:55 Urine,Clean Catch Urine Culture - Final Klebsiella Pneumoniae Esbl Citrobacter Freundii Complete Critical Care - Subjective ROS Limited/Unobtainable: Yes ICU Day: 2 Condition: critical FI02: 21 Sputum Amount: None I&O: Intake and Output 08/18/18 08/19/18 19:00 07:00 Intake Total 1700 ml 1755 ml Output Total 200 ml 210 ml Balance 1500 ml 1545 ml IV Total 1700 ml 1755 ml Output Urine Total 200 ml 10 ml Stool Total 200 ml CXR: pulmonary edema Labs: Laboratory Tests Test 08/18/18 11:00 08/18/18 18:15 08/19/18 00:30 08/19/18 01:20 Lactic Acid Level 6.70 mmol/L (0.4-2.0) H 6.70 mmol/L (0.4-2.0) H 5.80 mmol/L (0.4-2.0) H Sickle Cell Screen Pending Haptoglobin Pending PTT Mixing Study Pending APTT Patient/Control Mix Pending Mix PTT Incubation Time Pending Mix PTT Normal/Saline 1:1 Immediate Pending Thrombin Time Normal Plasma Pending Iron Level 154 ug/dL (50-175) Total Iron Binding Capacity 132 ug/dL (250-450) L Percent Iron Saturation 117 % (15-50) H Unsaturated Iron Binding -22 ug/dL (112-346) L Soluble Transferrin Receptor Pending Ferritin 1125 NG/ML (8-388) H Lactate Dehydrogenase 210 U/L (81-234) Vitamin B12 Level 1562 PG/ML (193-986) H Folate 17.9 NG/ML (8.6-58.9) Urine Random Sodium 114 mmol/L (20-110) H Test 08/19/18 05:30 White Blood Count 12.6 K/UL (4.8-10.8) H Red Blood Count 2.13 M/UL (4.20-5.40) L Hemoglobin 7.0 G/DL (12.0-16.0) L Hematocrit 21.7 % (37.0-47.0) L Mean Corpuscular Volume 102 FL (80-99) H Mean Corpuscular Hemoglobin 33.0 PG (27.0-31.0) H Mean Corpuscular Hemoglobin Concent 32.3 G/DL (32.0-36.0) Red Cell Distribution Width 19.1 % (11.6-14.8) H Platelet Count 38 K/UL (150-450) L Mean Platelet Volume 9.8 FL (6.5-10.1) Neutrophils (%) (Auto) % (45.0-75.0) Lymphocytes (%) (Auto) % (20.0-45.0) Monocytes (%) (Auto) % (1.0-10.0) Eosinophils (%) (Auto) % (0.0-3.0) Basophils (%) (Auto) % (0.0-2.0) Differential Total Cells Counted 100 Neutrophils % (Manual) 77 % (45-75) H Lymphocytes % (Manual) 19 % (20-45) L Monocytes % (Manual) 2 % (1-10) Eosinophils % (Manual) 1 % (0-3) Basophils % (Manual) 1 % (0-2) Band Neutrophils 0 % (0-8) Platelet Estimate Decreased L Platelet Morphology Normal Hypochromasia 3+ Anisocytosis 2+ Macrocytosis 1+ Prothrombin Time 15.1 SEC (9.30-11.50) H Prothromb Time International Ratio 1.5 (0.9-1.1) H Sodium Level 134 MMOL/L (136-145) L Potassium Level 5.0 MMOL/L (3.5-5.1) Chloride Level 102 MMOL/L (98-107) Carbon Dioxide Level 14 MMOL/L (21-32) L Anion Gap 19 mmol/L (5-15) H Blood Urea Nitrogen 66 mg/dL (7-18) H Creatinine 6.9 MG/DL (0.55-1.30) H Estimat Glomerular Filtration Rate 6.8 mL/min (>60) Glucose Level 129 MG/DL (74-106) H Lactic Acid Level Pending Calcium Level 7.5 MG/DL (8.5-10.1) L Total Bilirubin 3.9 MG/DL (0.2-1.0) H Direct Bilirubin 2.5 MG/DL (0.0-0.3) H Aspartate Amino Transf (AST/SGOT) 88 U/L (15-37) H Alanine Aminotransferase (ALT/SGPT) 44 U/L (12-78) Alkaline Phosphatase 110 U/L (46-116) Total Protein 6.6 G/DL (6.4-8.2) Albumin 1.7 G/DL (3.4-5.0) L Globulin 4.9 g/dL Albumin/Globulin Ratio 0.3 (1.0-2.7) L Jose Roberto Burleson MD Aug 19, 2018 09:55
--- NOTE | 2018-08-19 10:38 | Pre-Procedure Note/Attestation ---
Pre-Procedure Note/Attestation Complete Prior to Procedure Planned Procedure: not applicable Procedure Narrative: egd Indications for Procedure Pre-Operative Diagnosis: gib Attestation I attest that I discussed the nature of the procedure; its benefits; risks and complications; and alternatives (and the risks and benefits of such alternatives ), prior to the procedure, with the patient (or the patient's legal airport representative). I attest that, if there was a reasonable possibility of needing a blood transfusion, the patient (or the patient's legal airport representative) was given the [facility] standardized written summary, pursuant to the [place] Blood Safety Act ([place] Health and Safety Code # 1645, as amended). I attest that I re-evaluated the patient just prior to the surgery and that there has been no change in the patient's H&P, except as documented below: Christopher Rodriguez MD Aug 19, 2018 10:38
[2018-08-19] MEDS ORDERED: NS 500ML IVPB ONE (10:55)
[2018-08-19] MEDS ORDERED: LR 1000ml 1,000 ML IVLG SCH (10:57)
[2018-08-19] MEDS ORDERED: fentaNYL 100 mcg/2 mL IV PRN (11:00)
[2018-08-19] MEDS ORDERED: Propofol 200mg/20ml IV ONE (11:00)
[2018-08-19] MEDS ORDERED: Ketorolac 30mg Inj IV PRN ×2 (11:00)
[2018-08-19] MEDS ORDERED: Hydromorphone 0.5mg/0.5ml inj IVP PRN (11:00)
[2018-08-19] MEDS ORDERED: Atropine Sulfate 0.4mg/ml inj IVP PRN (11:00)
[2018-08-19] MEDS ORDERED: Lidocaine 1% MPF 10mg/ml 5ml ONE (11:00)
[2018-08-19] MEDS ORDERED: oxyCODONE HCL/Acetaminophen 5/325mg ORAL PRN (11:00)
[2018-08-19] MEDS ORDERED: HYDROcodone/Acetamin 7.5/325 tab ORAL PRN (11:00)
[2018-08-19] MEDS ORDERED: DiphenhydrAMINE 50mg/ml Inj IVP PRN (11:00)
[2018-08-19] MEDS ORDERED: Metoclopramide 10mg/2ml Inj IVP PRN (11:00)
[2018-08-19] MEDS ORDERED: Meperidine 50mg/ml Inj(FOR RIGORS ONLY) IVP PRN (11:00)
[2018-08-19] MEDS ORDERED: Midazolam 2mg/2ml Inj ONE (11:00)
[2018-08-19] MEDS ORDERED: Norco 5mg/325mg tab ORAL PRN (11:00)
[2018-08-19] MEDS ORDERED: LR 1000ml ONE (11:00)
--- NOTE | 2018-08-19 11:11 | Endoscopy Procedure Note ---
Endoscopy Procedure Note General Indication for Procedure: gib Procedures Performed: EGD Operative Findings/Diagnosis: esophageal varices Specimen: none Pt Tolerated Procedure Well: Yes Estimated Blood Loss: none Anesthesia Anesthesiologist: isaías Anesthesia: MAC Inserted Devices Implant(s) used?: No GI Core Measures 50 yrs or older w/o bx or poly: Not Applicable 10yrs. F/U not recommended: Not Applicable Christopher Rodriguez MD Aug 19, 2018 11:11
--- NOTE | 2018-08-19 11:13 | Anethesia Preoperative Eval ---
Anesthesia Pre-op PMH/ROS General Date of Evaluation: Aug 19, 2018 Time of Evaluation: 10:59 Anesthesiologist: Kathia ASA Score: ASA 4 Mallampati Score Class I : Soft palate, uvula, fauces, pillars visible Class II: Soft palate, uvula, fauces visible Class III: Soft palate, base of uvula visible Class IV: Only hard plate visible Mallampati Classification: Class III Surgeon: Jennifer Diagnosis: ABD Pain Surgical Procedure: EGD/Banding Anesthesia History: none Social History: alcohol use - Abuse Family History: no anesthesia problems Allergies: Coded Allergies: LORAZEPAM (Verified Allergy, Unknown, 05/21/18) PENICILLINS (Verified Allergy, Unknown, 05/21/18) Medications: see eMAR Patient NPO?: Yes Past Medical History Cardiovascular: Reports: HTN Gastrointestinal/Genitourinary: Reports: other - Cirrohsis, Liver Failure Hematology/Immune: Reports: anemia Other: obesity Anesthesia Pre-op Phys. Exam Physician Exam Last Vital Signs Date Time Temp Pulse Resp B/P (MAP) Pulse Ox O2 Delivery O2 Flow Rate FiO2 08/19/18 09:00 74 12 96/37 (56) 100 08/19/18 08:00 Nasal Cannula 2.0 08/19/18 08:00 97.5 97.5 08/17/18 16:12 21 Constitutional: NAD Neurologic: CN 2-12 intact Cardiovascular: RRR Respiratory: CTA Gastrointestinal: S/NT/ND Airway Exam Mallampati Score: Class III MO: limited ROM: limited Teeth: missing, intact Anesthesia Pre-op A/P Labs Hematology Test 08/18/18 18:15 08/19/18 05:30 Sickle Cell Screen Pending Haptoglobin Pending White Blood Count 12.6 K/UL (4.8-10.8) H Red Blood Count 2.13 M/UL (4.20-5.40) L Hemoglobin 7.0 G/DL (12.0-16.0) L Hematocrit 21.7 % (37.0-47.0) L Mean Corpuscular Volume 102 FL (80-99) H Mean Corpuscular Hemoglobin 33.0 PG (27.0-31.0) H Mean Corpuscular Hemoglobin Concent 32.3 G/DL (32.0-36.0) Red Cell Distribution Width 19.1 % (11.6-14.8) H Platelet Count 38 K/UL (150-450) L Mean Platelet Volume 9.8 FL (6.5-10.1) Neutrophils (%) (Auto) % (45.0-75.0) Lymphocytes (%) (Auto) % (20.0-45.0) Monocytes (%) (Auto) % (1.0-10.0) Eosinophils (%) (Auto) % (0.0-3.0) Basophils (%) (Auto) % (0.0-2.0) Differential Total Cells Counted 100 Neutrophils % (Manual) 77 % (45-75) H Lymphocytes % (Manual) 19 % (20-45) L Monocytes % (Manual) 2 % (1-10) Eosinophils % (Manual) 1 % (0-3) Basophils % (Manual) 1 % (0-2) Band Neutrophils 0 % (0-8) Platelet Estimate Decreased L Platelet Morphology Normal Hypochromasia 3+ Anisocytosis 2+ Macrocytosis 1+ Coagulation Test 08/18/18 18:15 08/19/18 05:30 PTT Mixing Study Pending APTT Patient/Control Mix Pending Mix PTT Incubation Time Pending Mix PTT Normal/Saline 1:1 Immediate Pending Thrombin Time Normal Plasma Pending Prothrombin Time 15.1 SEC (9.30-11.50) H Prothromb Time International Ratio 1.5 (0.9-1.1) H Chemistry Test 08/18/18 18:15 08/19/18 01:20 08/19/18 05:30 Lactic Acid Level 6.70 mmol/L (0.4-2.0) H 5.80 mmol/L (0.4-2.0) H Pending Iron Level 154 ug/dL (50-175) Total Iron Binding Capacity 132 ug/dL (250-450) L Percent Iron Saturation 117 % (15-50) H Unsaturated Iron Binding -22 ug/dL (112-346) L Soluble Transferrin Receptor Pending Ferritin 1125 NG/ML (8-388) H Lactate Dehydrogenase 210 U/L (81-234) Vitamin B12 Level 1562 PG/ML (193-986) H Folate 17.9 NG/ML (8.6-58.9) Sodium Level 134 MMOL/L (136-145) L Potassium Level 5.0 MMOL/L (3.5-5.1) Chloride Level 102 MMOL/L (98-107) Carbon Dioxide Level 14 MMOL/L (21-32) L Anion Gap 19 mmol/L (5-15) H Blood Urea Nitrogen 66 mg/dL (7-18) H Creatinine 6.9 MG/DL (0.55-1.30) H Estimat Glomerular Filtration Rate 6.8 mL/min (>60) Glucose Level 129 MG/DL (74-106) H Calcium Level 7.5 MG/DL (8.5-10.1) L Total Bilirubin 3.9 MG/DL (0.2-1.0) H Direct Bilirubin 2.5 MG/DL (0.0-0.3) H Aspartate Amino Transf (AST/SGOT) 88 U/L (15-37) H Alanine Aminotransferase (ALT/SGPT) 44 U/L (12-78) Alkaline Phosphatase 110 U/L (46-116) Total Protein 6.6 G/DL (6.4-8.2) Albumin 1.7 G/DL (3.4-5.0) L Globulin 4.9 g/dL Albumin/Globulin Ratio 0.3 (1.0-2.7) L Risk Assessment & Plan Assessment: ASA 4 Plan: GA Status Change Before Surgery: Arnie Fam MD Aug 19, 2018 11:12
--- NOTE | 2018-08-19 11:13 | Immediate Post-Op Evaluation ---
Immediate Post-Op Evalulation Immediate Post-Op Evalulation Procedure: EGD/Banding Date of Evaluation: Aug 19, 2018 Blood Products: 0 Pain Score (1-10): 2 Nausea: No Vomiting: No Complications 0 Patient Status: awake, reacts, patent, none Hydration Status: adequate Arnie Bae MD Aug 19, 2018 11:13
--- NOTE | 2018-08-19 11:14 | 48 Hour Post Anesthesia Eval ---
Post Anesthesia Evaluation Procedure: EGD/Banding Date of Evaluation: Aug 19, 2018 Airway: patent Nausea: No Vomiting: No Pain Intensity: 2 Hydration Status: adequate Cardiopulmonary Status: Stable Mental Status/LOC: patient returned to baseline Follow-up Care/Observations: 0 Post-Anesthesia Complications: 0 Follow-up care needed: N/A Arnie Bae MD Aug 19, 2018 11:14
--- NOTE | 2018-08-19 11:51 | General Progress Note ---
Assessment/Plan Problem List: (1) Edema ICD Codes: R60.9 - Edema, unspecified SNOMED: 953505492, 000487303 (2) Anemia ICD Codes: D64.9 - Anemia, unspecified SNOMED: 107498238 (3) Alcoholic cirrhosis ICD Codes: K70.30 - Alcoholic cirrhosis of liver without ascites SNOMED: 436302568 (4) Esophageal varices ICD Codes: I85.00 - Esophageal varices without bleeding SNOMED: 34766110 (5) Leukocytosis ICD Codes: D72.829 - Elevated white blood cell count, unspecified SNOMED: 190221213, 530879814 (6) GI bleed ICD Codes: K92.2 - Gastrointestinal hemorrhage, unspecified SNOMED: 66486325 (7) LENI (acute kidney injury) ICD Codes: N17.9 - Acute kidney failure, unspecified SNOMED: 26038857 (8) Sepsis ICD Codes: A41.9 - Sepsis, unspecified organism SNOMED: 34871648 Status: unchanged Assessment/Plan abx oe pulm tx ransfuse prn gi heme f/u cbc bmp am Subjective Constitutional: Reports: weakness Allergies: Coded Allergies: LORAZEPAM (Verified Allergy, Unknown, 05/21/18) PENICILLINS (Verified Allergy, Unknown, 05/21/18) All Systems: reviewed and negative except above Subjective 02nc sleepy in icu Objective Last 24 Hour Vital Signs Date Time Temp Pulse Resp B/P (MAP) Pulse Ox O2 Delivery O2 Flow Rate FiO2 08/19/18 09:00 74 12 96/37 (56) 100 08/19/18 08:00 Nasal Cannula 2.0 08/19/18 08:00 97.5 74 10 98/40 (59) 100 97.5 08/19/18 07:00 97.4 74 10 91/40 (57) 100 97.4 08/19/18 06:00 74 13 91/36 (54) 100 08/19/18 05:00 76 10 87/37 (54) 100 08/19/18 04:00 76 08/19/18 04:00 Nasal Cannula 2.0 08/19/18 04:00 76 10 91/38 (55) 100 08/19/18 03:00 97.5 74 10 95/34 (54) 100 97.5 08/19/18 02:00 76 10 96/36 (56) 100 08/19/18 01:00 76 10 100/33 (55) 100 08/19/18 00:00 76 08/19/18 00:00 75 10 95/36 (55) 100 08/19/18 00:00 Nasal Cannula 2.0 08/18/18 23:00 75 10 97/36 (56) 100 08/18/18 22:00 74 9 95/36 (55) 100 08/18/18 21:00 74 9 92/37 (55) 100 08/18/18 20:00 75 08/18/18 20:00 74 9 96/39 (58) 100 08/18/18 20:00 Nasal Cannula 2.0 08/18/18 19:00 97.8 75 9 98/41 (60) 100 97.8 08/18/18 18:00 74 9 99/36 (57) 100 08/18/18 17:00 74 6 95/40 (58) 100 08/18/18 16:00 73 08/18/18 16:00 Nasal Cannula 2.0 08/18/18 16:00 97.1 73 8 92/36 (54) 100 97.1 08/18/18 15:00 73 13 96/37 (56) 100 08/18/18 14:00 73 12 90/32 (51) 100 08/18/18 13:00 74 13 90/32 (51) 100 08/18/18 12:00 Nasal Cannula 2.0 08/18/18 12:00 97.2 74 16 94/30 (51) 100 97.2 08/18/18 12:00 81 Intake and Output 08/18/18 08/19/18 19:00 07:00 Intake Total 1700 ml 1755 ml Output Total 200 ml 210 ml Balance 1500 ml 1545 ml IV Total 1700 ml 1755 ml Output Urine Total 200 ml 10 ml Stool Total 200 ml Laboratory Tests 08/18/18 18:15: Sickle Cell Screen [Pending], Haptoglobin [Pending], PTT Mixing Study [Pending] , APTT Patient/Control Mix [Pending], Mix PTT Incubation Time [Pending], Mix PTT Normal/Saline 1:1 Immediate [Pending], Thrombin Time Normal Plasma [Pending] , Lactic Acid Level 6.70H, Iron Level 154, Total Iron Binding Capacity 132L, Percent Iron Saturation 117H, Unsaturated Iron Binding -22L, Soluble Transferrin Receptor [Pending], Ferritin 1125H, Lactate Dehydrogenase 210, Vitamin B12 Level 1562H, Folate 17.9 08/19/18 00:30: Urine Random Sodium 114H 08/19/18 01:20: Lactic Acid Level 5.80H 08/19/18 05:30: Lactic Acid Level [Pending], White Blood Count 12.6H, Red Blood Count 2.13L, Hemoglobin 7.0L, Hematocrit 21.7L, Mean Corpuscular Volume 102H, Mean Corpuscular Hemoglobin 33.0H, Mean Corpuscular Hemoglobin Concent 32.3, Red Cell Distribution Width 19.1H, Platelet Count 38L, Mean Platelet Volume 9.8, Neutrophils (%) (Auto) , Lymphocytes (%) (Auto) , Monocytes (%) (Auto) , Eosinophils (%) (Auto) , Basophils (%) (Auto) , Differential Total Cells Counted 100, Neutrophils % (Manual) 77H, Lymphocytes % (Manual) 19L, Monocytes % (Manual) 2, Eosinophils % (Manual) 1, Basophils % (Manual) 1, Band Neutrophils 0, Platelet Estimate DecreasedL, Platelet Morphology Normal, Hypochromasia 3+, Anisocytosis 2+, Macrocytosis 1+, Prothrombin Time 15.1H, Prothromb Time International Ratio 1.5H, Sodium Level 134L, Potassium Level 5.0 , Chloride Level 102, Carbon Dioxide Level 14L, Anion Gap 19H, Blood Urea Nitrogen 66H, Creatinine 6.9H, Estimat Glomerular Filtration Rate 6.8, Glucose Level 129H, Calcium Level 7.5L, Total Bilirubin 3.9H, Direct Bilirubin 2.5H, Aspartate Amino Transf (AST/SGOT) 88H, Alanine Aminotransferase (ALT/SGPT) 44, Alkaline Phosphatase 110, Total Protein 6.6, Albumin 1.7L, Globulin 4.9, Albumin /Globulin Ratio 0.3L Height (Feet): 5 Height (Inches): 3.00 Weight (Pounds): 303 General Appearance: lethargic EENT: normal ENT inspection Neck: normal alignment Cardiovascular: normal peripheral pulses, normal rate, regular rhythm Respiratory/Chest: chest wall non-tender, decreased breath sounds Abdomen: normal bowel sounds, non tender, soft Extremities: normal inspection Edema: 1+ Arm (L), 1+ Arm (R), 1+ Leg (L), 1+ Leg (R), 1+ Pedal (L), 1+ Pedal ( R), 1+ Generalized Edema: trace edema Neurologic: motor weakness Skin: normal pigmentation, warm/dry Chauncey Fuentes DO Aug 19, 2018 11:51
--- NOTE | 2018-08-19 11:51 | Infectious Diseases Prog Note ---
Assessment/Plan Assessment/Plan ASSESSMENT: The patient is a 38-year-old female with: 1. Probable sepsis. 2. Leukocytosis; improving -CXR: Pulmonary vascular congestion with increased interstitial markings , likely representing interstitial edema. This appears improved relative to the chest x-ray from 07/22/18 3. Urinary tract infection. u/a wbc 60-80, nit+, leuk large; ucx ESBL K. pna ( R zosyn, S ertapenem), Citrobacter freundi (R ancef, I Impienem, S ertapenem) 4. History of hepatitis panel and HIV serology negative. 5. GIB -s/p EGD 08/19: esophageal varices 6. Afebrile. 7. r/o bacteremia. -Bcx NTD 8. Acute renal insufficiency.; refusin HD -Renal US: unremarkable 9. Rule out probable spontaneous bacterial peritonitis. -. Alcoholic cirrhosis. -. Esophageal varices. PLAN: -.Switch cefepime and Flagyl #3 to Ertapenem for ESBL UTI -. Monitor BMP. -. Monitor cultures (blood, urine).. -. Nephrology to follow on renal insufficiency. -. Based on the patient's clinical course and labs, we will do further recommendation. Thank you, Dr. Chauncey Fuentes, for allowing me to see this patient. I will follow the patient with you during this hospitalization. Subjective Allergies: Coded Allergies: LORAZEPAM (Verified Allergy, Unknown, 05/21/18) PENICILLINS (Verified Allergy, Unknown, 05/21/18) Subjective afebrile leukocytosis improving Bcx NTD Objective Vital Signs Last 24 Hour Vital Signs Date Time Temp Pulse Resp B/P (MAP) Pulse Ox O2 Delivery O2 Flow Rate FiO2 08/19/18 09:00 74 12 96/37 (56) 100 08/19/18 08:00 Nasal Cannula 2.0 08/19/18 08:00 97.5 74 10 98/40 (59) 100 97.5 08/19/18 07:00 97.4 74 10 91/40 (57) 100 97.4 08/19/18 06:00 74 13 91/36 (54) 100 08/19/18 05:00 76 10 87/37 (54) 100 08/19/18 04:00 76 08/19/18 04:00 Nasal Cannula 2.0 08/19/18 04:00 76 10 91/38 (55) 100 08/19/18 03:00 97.5 74 10 95/34 (54) 100 97.5 08/19/18 02:00 76 10 96/36 (56) 100 08/19/18 01:00 76 10 100/33 (55) 100 08/19/18 00:00 76 08/19/18 00:00 75 10 95/36 (55) 100 08/19/18 00:00 Nasal Cannula 2.0 08/18/18 23:00 75 10 97/36 (56) 100 08/18/18 22:00 74 9 95/36 (55) 100 08/18/18 21:00 74 9 92/37 (55) 100 08/18/18 20:00 75 08/18/18 20:00 74 9 96/39 (58) 100 08/18/18 20:00 Nasal Cannula 2.0 08/18/18 19:00 97.8 75 9 98/41 (60) 100 97.8 08/18/18 18:00 74 9 99/36 (57) 100 08/18/18 17:00 74 6 95/40 (58) 100 08/18/18 16:00 73 08/18/18 16:00 Nasal Cannula 2.0 08/18/18 16:00 97.1 73 8 92/36 (54) 100 97.1 08/18/18 15:00 73 13 96/37 (56) 100 08/18/18 14:00 73 12 90/32 (51) 100 08/18/18 13:00 74 13 90/32 (51) 100 08/18/18 12:00 Nasal Cannula 2.0 08/18/18 12:00 97.2 74 16 94/30 (51) 100 97.2 08/18/18 12:00 81 Height (Feet): 5 Height (Inches): 3.00 Weight (Pounds): 303 Objective HEENT: No pale conjunctivae. CHEST: Clear. HEART: S1 and S2. ABDOMEN: Obese and nontender. EXTREMITIES: No cyanosis at this time. There is no edema. NEUROLOGIC: Awake, but lethargic. Microbiology Date/Time Source Procedure Growth Status 08/17/18 11:46 Blood Blood Culture - Preliminary NO GROWTH AFTER 24 HOURS Resulted 08/17/18 11:30 Blood Blood Culture - Preliminary NO GROWTH AFTER 24 HOURS Resulted 08/17/18 11:55 Urine,Clean Catch Urine Culture - Final Klebsiella Pneumoniae Esbl Citrobacter Freundii Complete Laboratory Tests Test 08/18/18 18:15 08/19/18 00:30 08/19/18 01:20 08/19/18 05:30 Sickle Cell Screen Pending Haptoglobin Pending PTT Mixing Study Pending APTT Patient/Control Mix Pending Mix PTT Incubation Time Pending Mix PTT Normal/Saline 1:1 Immediate Pending Thrombin Time Normal Plasma Pending Lactic Acid Level 6.70 mmol/L (0.4-2.0) H 5.80 mmol/L (0.4-2.0) H Pending Iron Level 154 ug/dL (50-175) Total Iron Binding Capacity 132 ug/dL (250-450) L Percent Iron Saturation 117 % (15-50) H Unsaturated Iron Binding -22 ug/dL (112-346) L Soluble Transferrin Receptor Pending Ferritin 1125 NG/ML (8-388) H Lactate Dehydrogenase 210 U/L (81-234) Vitamin B12 Level 1562 PG/ML (193-986) H Folate 17.9 NG/ML (8.6-58.9) Urine Random Sodium 114 mmol/L (20-110) H White Blood Count 12.6 K/UL (4.8-10.8) H Red Blood Count 2.13 M/UL (4.20-5.40) L Hemoglobin 7.0 G/DL (12.0-16.0) L Hematocrit 21.7 % (37.0-47.0) L Mean Corpuscular Volume 102 FL (80-99) H Mean Corpuscular Hemoglobin 33.0 PG (27.0-31.0) H Mean Corpuscular Hemoglobin Concent 32.3 G/DL (32.0-36.0) Red Cell Distribution Width 19.1 % (11.6-14.8) H Platelet Count 38 K/UL (150-450) L Mean Platelet Volume 9.8 FL (6.5-10.1) Neutrophils (%) (Auto) % (45.0-75.0) Lymphocytes (%) (Auto) % (20.0-45.0) Monocytes (%) (Auto) % (1.0-10.0) Eosinophils (%) (Auto) % (0.0-3.0) Basophils (%) (Auto) % (0.0-2.0) Differential Total Cells Counted 100 Neutrophils % (Manual) 77 % (45-75) H Lymphocytes % (Manual) 19 % (20-45) L Monocytes % (Manual) 2 % (1-10) Eosinophils % (Manual) 1 % (0-3) Basophils % (Manual) 1 % (0-2) Band Neutrophils 0 % (0-8) Platelet Estimate Decreased L Platelet Morphology Normal Hypochromasia 3+ Anisocytosis 2+ Macrocytosis 1+ Prothrombin Time 15.1 SEC (9.30-11.50) H Prothromb Time International Ratio 1.5 (0.9-1.1) H Sodium Level 134 MMOL/L (136-145) L Potassium Level 5.0 MMOL/L (3.5-5.1) Chloride Level 102 MMOL/L (98-107) Carbon Dioxide Level 14 MMOL/L (21-32) L Anion Gap 19 mmol/L (5-15) H Blood Urea Nitrogen 66 mg/dL (7-18) H Creatinine 6.9 MG/DL (0.55-1.30) H Estimat Glomerular Filtration Rate 6.8 mL/min (>60) Glucose Level 129 MG/DL (74-106) H Calcium Level 7.5 MG/DL (8.5-10.1) L Total Bilirubin 3.9 MG/DL (0.2-1.0) H Direct Bilirubin 2.5 MG/DL (0.0-0.3) H Aspartate Amino Transf (AST/SGOT) 88 U/L (15-37) H Alanine Aminotransferase (ALT/SGPT) 44 U/L (12-78) Alkaline Phosphatase 110 U/L (46-116) Total Protein 6.6 G/DL (6.4-8.2) Albumin 1.7 G/DL (3.4-5.0) L Globulin 4.9 g/dL Albumin/Globulin Ratio 0.3 (1.0-2.7) L Current Medications Medications (Trade) Dose Ordered Sig/Abner Route PRN Reason Start Time Stop Time Status Last Admin Dose Admin Acetaminophen/ Hydrocodone Bitart ([place] 5/325) 1 tab Q1H PRN ORAL Mild Pain (Pain Scale 1-3) 10/8/18 11:00 08/19/18 16:00 Acetaminophen/ Hydrocodone Bitart ([place] 7.5/325) 1 tab Q1H PRN ORAL Moderate Pain (Pain Scale 4-6) 08/19/18 11:00 08/19/18 16:00 Al Hydroxide/Mg Hydroxide ([place] II) 30 ml Q6H PRN ORAL dyspepsia 08/17/18 16:18 09/16/18 16:17 Al Hydroxide/Mg Hydroxide (Mylanta) 15 ml Q1H PRN ORAL gi upset 08/19/18 11:00 08/19/18 16:00 Atropine Sulfate (Atropine 0.4mg/ ml) 0.5 mg Q5M PRN IVP HR<40 08/19/18 11:00 08/19/18 16:00 Cefepime HCl 1 gm/ Dextrose 55 ml @ 110 mls/hr Q24H IV 08/18/18 21:00 08/25/18 20:59 08/18/18 21:20 Dextrose (Dextrose 50%) 25 ml Q30M PRN IV Hypoglycemia 08/17/18 16:21 09/16/18 16:20 Dextrose (Dextrose 50%) 50 ml Q30M PRN IV Hypoglycemia 08/17/18 16:21 09/16/18 16:20 Diphenhydramine HCl (Benadryl) 25 mg Q15M PRN IVP Itching 08/19/18 11:00 08/19/18 16:00 Fentanyl Citrate (Sublimaze 100 mcg/2 mL) 25 mcg Q10M PRN IV Moderate Pain (Pain Scale 4-6) 08/19/18 11:00 08/19/18 16:00 Hydralazine HCl (Apresoline) 5 mg Q30M PRN IV SBP>160 / DBP>90 08/19/18 11:00 08/19/18 16:00 Hydromorphone HCl (Dilaudid) 0.5 mg Q15M PRN IVP Severe Pain (Pain Scale 7-10) 08/19/18 11:00 08/19/18 16:00 Ketorolac Tromethamine (Toradol 30mg) 15 mg Q1H PRN IV Moderate Breakthru Pain (5-7) 08/19/18 11:00 08/19/18 16:00 Ketorolac Tromethamine (Toradol 30mg) 30 mg Q1H PRN IV Severe Break[place]ru Pain (>7) 08/19/18 11:00 08/19/18 16:00 Lactated Ringer's 1,000 ml @ 10 mls/hr Q24H IVLG 08/19/18 10:57 08/19/18 16:00 Lactulose (Cephulac) 30 gm EVERY 6 HOURS ORAL 08/17/18 18:00 09/16/18 17:59 08/19/18 06:05 Meperidine HCl (Demerol) 25 mg Q5M PRN IVP Shivering.May repeat x 1 08/19/18 11:00 08/19/18 16:00 Metoclopramide HCl (Reglan) 10 mg Q1H PRN IVP Nausea & Vomiting 08/19/18 11:00 08/19/18 16:00 Metronidazole 100 ml @ 100 mls/hr Q6H IV 08/17/18 20:00 08/24/18 19:59 08/19/18 09:52 Morphine Sulfate (Morphine Sulfate) 2 mg Q4H PRN IVP For Pain 08/17/18 16:20 08/24/18 16:19 08/18/18 08:44 Octreotide Acetate 500 mcg/ Sodium Chloride 500 ml @ 50 mls/hr Q10H IV 08/19/18 11:00 09/18/18 10:59 Ondansetron HCl (Zofran) 4 mg Q1H PRN IVP Nausea & Vomiting 08/19/18 11:00 08/19/18 16:00 Ondansetron HCl (Zofran) 4 mg Q6H PRN IVP Nausea & Vomiting 08/17/18 16:18 09/16/18 16:17 Oxycodone/ Acetaminophen (Percocet 5-325) 1 tab Q1H PRN ORAL Severe Pain (Pain Scale 7-10) 08/19/18 11:00 08/19/18 16:00 Pantoprazole (Protonix) 40 mg Q12H IVP 08/17/18 18:00 09/16/18 17:59 08/19/18 06:05 Polyethylene Glycol (Miralax) 17 gm HSPRN PRN ORAL Constipation 08/17/18 21:00 09/16/18 20:59 Sodium Bicarbonate 150 ml/Dextrose 1,150 ml @ 75 mls/hr [id number] IV 08/17/18 19:30 09/16/18 19:29 08/19/18 05:06 Sodium Bicarbonate (NaHCO3) 650 mg THREE TIMES A DAY ORAL 08/19/18 09:00 09/18/18 08:59 08/19/18 09:53 Stacy Perdomo M.D. Aug 19, 2018 11:51
[2018-08-19] MEDS ORDERED: Heparin 2000 units/Ns 1000ml INJ PRN (12:00)
[2018-08-19] MEDS ORDERED: Lidocaine 1% Plain 30 ml INJ PRN (12:00)
--- NOTE | 2018-08-19 14:46 | Cardiology Report ---
APPROVED REPORT EKG Measurement Heart [id number] [place] [id number] Sinus rhythm with 1st degree AV block Low voltage QRS Borderline ECG
[2018-08-19] MEDS: Ertapenem 0.5 GM in NS 55 ML IVPB SCH (15:36)
--- NOTE | 2018-08-19 17:00 | Procedure Note ---
DATE OF PROCEDURE: 08/19/2018 SURGEON: Christopher Rodriguez M.D. ANESTHESIOLOGIST: Dr. Bae. REFERRING PHYSICIAN: Chauncey Fuentes D.O. PROCEDURE: Upper endoscopy with banding of esophageal varices. ANESTHESIA: Per Dr. Bae. INSTRUMENT: Olympus adult flexible upper endoscope. INDICATION: Variceal bleeding. The procedure, risks, benefits, and possible consequences, including hemorrhage, aspiration, perforation and infection, and alternative treatments, were explained to the patient/legal guardian by Dr. Christopher Rodriguez and the patient/legal guardian understood and accepted these risks. DESCRIPTION OF PROCEDURE: After informed consent was obtained and the patient was adequately sedated, Olympus upper endoscope was advanced from the mouth into the second portion of duodenum and retroflexion was performed in the stomach. The patient had evidence of portal hypertensive gastropathy. No evidence of any gastric varices, but the patient had 4 columns of grade 4 esophageal varices. Then the scope was removed. Banding device was placed. A total of 7 bands were placed in the distal esophagus. The patient tolerated the procedure very well without any complication. SUMMARY OF FINDINGS: Esophageal varices, status post banding x7. RECOMMENDATIONS: N.p.o. IV fluid. IV antibiotics. Monitor laboratories. We will taper octreotide tomorrow if the patient is stable. Keep the patient n.p.o. for now. I want to thank Dr. Chauncey Fuentes for this kind referral. Christopher Rodriguez M.D. DR: Jasbir JOB#: [id number] CC: Chauncey Fuentes D.O.
[2018-08-19] MEDS: Dyna-Hex 2% Top Sol 2oz TOPIC SCH (20:00)
[2018-08-20] VITALS (24 sets, daily range): BP systolic 87–112; BP diastolic 34–51
[2018-08-20] MEDS: Lactulose 20gm/30ml UDC ORAL SCH ×4 (00:08→18:27)
[2018-08-20] MEDS: Octreotide Acetate 500 MCG in Sodium Chloride 500ML 499 ML IV SCH (05:42)
[2018-08-20] MEDS: Pantoprazole Inj IVP SCH ×2 (05:55→18:27)
[2018-08-20 07:24] LABS: HEMATOCRIT 23.3 % (37.0-47.0); HEMOGLOBIN 7.9 G/DL (12.0-16.0); MEAN CORPUSCULAR VOLUME 99 FL (80-99); PLATELET COUNT 53 K/UL (150-450); RED BLOOD COUNT 2.34 M/UL (4.20-5.40); RED CELL DISTRIBUTION WIDTH 18.2 % (11.6-14.8); WHITE BLOOD COUNT 10.7 K/UL (4.8-10.8)
[2018-08-20 07:41] LABS: ALANINE AMINOTRANSFERASE 39 U/L (12-78); ALBUMIN 1.8 G/DL (3.4-5.0); ALBUMIN/GLOBULIN RATIO 0.4 (1.0-2.7); ALKALINE PHOSPHATASE 111 U/L (46-116); ANION GAP 19 mmol/L (5-15); ASPARTATE AMINO TRANSFERASE 89 U/L (15-37); BILIRUBIN,TOTAL 3.5 MG/DL (0.2-1.0); BLOOD UREA NITROGEN 71 mg/dL (7-18); CALCIUM 7.2 MG/DL (8.5-10.1); CARBON DIOXIDE 14 MMOL/L (21-32); CHLORIDE 103 MMOL/L (98-107); CREATININE 7.2 MG/DL (0.55-1.30); POTASSIUM 4.7 MMOL/L (3.5-5.1); SODIUM 136 MMOL/L (136-145)
[2018-08-20 07:42] LABS: BILIRUBIN,DIRECT 2.3 MG/DL (0.0-0.3)
[2018-08-20 07:44] LABS: INR 1.5 (0.9-1.1)
--- NOTE | 2018-08-20 08:24 | Nephrology Progress Note ---
Assessment/Plan Assessment/Plan 1. LENI- multifact ATN ( hypotension/intravasc vol dep/?hepatorenal/Anemia) - MAP >65mmHg - patient now accepting temporary HD - HD today 2. Hyperk+- due to RI and metabolic acidosis - resolved 3. Hepatic Failure - alocohol 4. Met Acidosis- AG/Lactic - po bicarb and HD today 5. GI Bleed- octreotide, mgmt per GI Subjective Date patient seen: Aug 20, 2018 Time patient seen: 08:18 ROS Limited/Unobtainable: No Constitutional: Reports: weakness Allergies: Coded Allergies: LORAZEPAM (Verified Allergy, Unknown, 05/21/18) PENICILLINS (Verified Allergy, Unknown, 05/21/18) All Systems: reviewed and negative except above Subjective Patient feeling ill. Asked for dialysis and patient agreed twice Objective Last 24 Hour Vital Signs Date Time Temp Pulse Resp B/P (MAP) Pulse Ox O2 Delivery O2 Flow Rate FiO2 08/20/18 07:02 100 Nasal Cannula 2.0 28 08/20/18 07:02 Nasal Cannula 2.0 28 08/20/18 07:00 76 13 102/43 (62) 100 08/20/18 06:00 97.6 77 13 103/36 (58) 100 97.6 08/20/18 05:00 77 13 87/48 (61) 100 08/20/18 04:00 77 13 104/44 (64) 100 08/20/18 04:00 Nasal Cannula 2.0 08/20/18 04:00 79 08/20/18 03:00 77 13 102/45 (64) 100 08/20/18 02:00 75 13 102/46 (64) 100 08/20/18 01:00 75 13 105/44 (64) 100 08/20/18 00:00 75 12 104/47 (66) 100 08/20/18 00:00 76 08/20/18 00:00 Nasal Cannula 2.0 08/19/18 23:00 75 15 103/48 (66) 100 08/19/18 22:00 75 13 106/44 (64) 100 08/19/18 21:00 97.5 75 13 101/44 (63) 100 97.5 08/19/18 20:00 Nasal Cannula 2.0 08/19/18 20:00 97.5 75 13 103/41 (61) 100 97.5 08/19/18 20:00 74 08/19/18 19:00 100 Nasal Cannula 2.0 28 08/19/18 19:00 Nasal Cannula 2.0 28 08/19/18 19:00 75 12 106/50 (68) 100 08/19/18 18:00 73 15 101/44 (63) 100 08/19/18 17:00 74 15 96/39 (58) 100 08/19/18 16:00 97.4 74 15 97/40 (59) 100 97.4 08/19/18 16:00 73 08/19/18 16:00 Nasal Cannula 2.0 08/19/18 15:00 73 15 102/43 (62) 100 08/19/18 14:00 72 14 101/37 (58) 100 08/19/18 13:00 71 15 96/37 (56) 100 08/19/18 12:00 71 08/19/18 12:00 Nasal Cannula 2.0 08/19/18 12:00 97.4 71 15 103/36 (58) 100 97.4 08/19/18 09:00 74 12 96/37 (56) 100 Intake and Output 08/19/18 08/20/18 19:00 07:00 Intake Total 1521.66 ml 350 ml Output Total 200 ml 280 ml Balance 1321.66 ml 70 ml IV Total 1521.66 ml 350 ml Output Urine Total 0 ml 30 ml Stool Total 200 ml 250 ml Laboratory Tests 08/20/18 06:45: White Blood Count 10.7, Red Blood Count 2.34L, Hemoglobin 7.9L, Hematocrit 23.3L , Mean Corpuscular Volume 99, Mean Corpuscular Hemoglobin 33.9H, Mean Corpuscular Hemoglobin Concent 34.1, Red Cell Distribution Width 18.2H, Platelet Count 53L, Mean Platelet Volume 7.0, Neutrophils (%) (Auto) , Lymphocytes (%) (Auto) , Monocytes (%) (Auto) , Eosinophils (%) (Auto) , Basophils (%) (Auto) , Neutrophils % (Manual) [Pending], Lymphocytes % (Manual) [Pending], Platelet Estimate [Pending], Platelet Morphology [Pending], Prothrombin Time 15.4H, Prothromb Time International Ratio 1.5H, Sodium Level 136, Potassium Level 4.7, Chloride Level 103, Carbon Dioxide Level 14L, Anion Gap 19H, Blood Urea Nitrogen 71H, Creatinine 7.2H, Estimat Glomerular Filtration Rate 6.5, Glucose Level 117H, Calcium Level 7.2L, Total Bilirubin 3.5H, Direct Bilirubin 2.3H, Aspartate Amino Transf (AST/SGOT) 89H, Alanine Aminotransferase (ALT/SGPT) 39, Alkaline Phosphatase 111, Ammonia 185H, Pro-B- Type Natriuretic Peptide 34718P, Total Protein 6.7, Albumin 1.8L, Globulin 4.9, Albumin/Globulin Ratio 0.4L Height (Feet): 5 Height (Inches): 3.00 Weight (Pounds): 304 General Appearance: obese EENT: normal ENT inspection Neck: normal alignment Cardiovascular: normal rate, regular rhythm Respiratory/Chest: rhonchi - bilaterally Abdomen: distended, guarding Edema: 4+ Arm (L), 4+ Arm (R), 4+ Leg (L), 4+ Leg (R), 4+ Pedal (L), 4+ Pedal ( R), 4+ Generalized Amos Pinon MD Aug 20, 2018 08:24
--- NOTE | 2018-08-20 08:51 | General Progress Note ---
Assessment/Plan Assessment/Plan # Thrombocytopenia. Is most likely related to underlying liver disease. Hx of ETOH use. She does have evidence of hepatic cirrhosis, with surface nodularity an increased echogenicity. Evidence of portal hypertension, with ascites, splenomegaly, and flow reversal within the main and right portal vein. Evidence of prior cholecystectomy. Negative for dilated ducts. Prior CT and Us have been reviewed, hepatitis and hiv are both negative. --> Peripheral smear ordered and is negative for blasts, has been reviewed --> Abx and other meds have been reviewed. --> hold off heparin, asa, or plavix --> Transfuse plts if plt count >10k or if 20k and with fever # Anemia due to gastrointestinal bleed. Hemoglobin currently 6.4, previously 5.9. --> Gastroenterology to evaluate and manage. --> on octreotide gtt # Coagulopathy is likely related to underlying liver disease --> no evidence of bleeding hold off unless bleeding is noted --> VIt K or ffp before procedure # Anemia of chronic disease, multifactorial --> Previous w/u has been reviewed. --> Will trend CBC daily. --> Hgb goal above 7 --> Blood tx: 08/17,08/18 # Acute kidney injury secondary to intravascular volume depletion along with ischemic acute tubular necrosis from hypotension. --> Nephro following. Appreciate recs. # Hyperkalemia secondary to renal insufficiency and gastrointestinal bleed. --> At this time, potassium 6.2. The patient was given Kayexalate 60 g already. 20 mg intravenous Lasix has been ordered. 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 Subjective Constitutional: Denies: no symptoms, chills, diaphoresis, fever, malaise, weakness, other HEENT: Denies: no symptoms, eye pain, blurred vision, tearing, double vision, ear pain, ear discharge, nose pain, nose congestion, throat pain, throat swelling, mouth pain, mouth swelling, other Cardiovascular: Denies: no symptoms, chest pain, edema, irregular heart rate, lightheadedness, palpitations, syncope, other Respiratory: Denies: no symptoms, cough, orthopnea, shortness of breath, SOB with excertion, SOB at rest, sputum, stridor, wheezing, other Gastrointestinal/Abdominal: Denies: no symptoms, abdomen distended, abdominal pain, black stools, tarry stools, blood in stool, constipated, diarrhea, difficulty swallowing, nausea, poor appetite, poor fluid intake, rectal bleeding , vomiting, other Genitourinary: Denies: no symptoms, burning, discharge, frequency, flank pain, hematuria, incontinence, pain, urgency, other Neurologic/Psychiatric: Denies: no symptoms, anxiety, depressed, emotional problems, headache, numbness, paresthesia, pre-existing deficit, seizure, tingling, tremors, weakness, other Endocrine: Denies: no symptoms, excessive sweating, flushing, intolerance to cold, intolerance to heat, increased hunger, increased thirst, increased urine, unexplained weight gain, unexplained weight loss, other Allergies: Coded Allergies: LORAZEPAM (Verified Allergy, Unknown, 05/21/18) PENICILLINS (Verified Allergy, Unknown, 05/21/18) Subjective no events, monitoring labs, feeling generally weak, remains ill, agreed to HD Objective Last 24 Hour Vital Signs Date Time Temp Pulse Resp B/P (MAP) Pulse Ox O2 Delivery O2 Flow Rate FiO2 08/20/18 07:02 100 Nasal Cannula 2.0 28 08/20/18 07:02 Nasal Cannula 2.0 28 08/20/18 07:00 76 13 102/43 (62) 100 08/20/18 06:00 97.6 77 13 103/36 (58) 100 97.6 08/20/18 05:00 77 13 87/48 (61) 100 08/20/18 04:00 77 13 104/44 (64) 100 08/20/18 04:00 Nasal Cannula 2.0 08/20/18 04:00 79 08/20/18 03:00 77 13 102/45 (64) 100 08/20/18 02:00 75 13 102/46 (64) 100 08/20/18 01:00 75 13 105/44 (64) 100 08/20/18 00:00 75 12 104/47 (66) 100 08/20/18 00:00 76 08/20/18 00:00 Nasal Cannula 2.0 08/19/18 23:00 75 15 103/48 (66) 100 08/19/18 22:00 75 13 106/44 (64) 100 08/19/18 21:00 97.5 75 13 101/44 (63) 100 97.5 08/19/18 20:00 Nasal Cannula 2.0 08/19/18 20:00 97.5 75 13 103/41 (61) 100 97.5 08/19/18 20:00 74 08/19/18 19:00 100 Nasal Cannula 2.0 28 08/19/18 19:00 Nasal Cannula 2.0 28 08/19/18 19:00 75 12 106/50 (68) 100 08/19/18 18:00 73 15 101/44 (63) 100 08/19/18 17:00 74 15 96/39 (58) 100 08/19/18 16:00 97.4 74 15 97/40 (59) 100 97.4 08/19/18 16:00 73 08/19/18 16:00 Nasal Cannula 2.0 08/19/18 15:00 73 15 102/43 (62) 100 08/19/18 14:00 72 14 101/37 (58) 100 08/19/18 13:00 71 15 96/37 (56) 100 08/19/18 12:00 71 08/19/18 12:00 Nasal Cannula 2.0 08/19/18 12:00 97.4 71 15 103/36 (58) 100 97.4 08/19/18 09:00 74 12 96/37 (56) 100 Intake and Output 08/19/18 08/20/18 19:00 07:00 Intake Total 1521.66 ml 350 ml Output Total 200 ml 280 ml Balance 1321.66 ml 70 ml IV Total 1521.66 ml 350 ml Output Urine Total 0 ml 30 ml Stool Total 200 ml 250 ml Laboratory Tests 08/20/18 06:45: White Blood Count 10.7, Red Blood Count 2.34L, Hemoglobin 7.9L, Hematocrit 23.3L , Mean Corpuscular Volume 99, Mean Corpuscular Hemoglobin 33.9H, Mean Corpuscular Hemoglobin Concent 34.1, Red Cell Distribution Width 18.2H, Platelet Count 53L, Mean Platelet Volume 7.0, Neutrophils (%) (Auto) , Lymphocytes (%) (Auto) , Monocytes (%) (Auto) , Eosinophils (%) (Auto) , Basophils (%) (Auto) , Differential Total Cells Counted 100, Neutrophils % ( Manual) 81H, Lymphocytes % (Manual) 11L, Monocytes % (Manual) 6, Eosinophils % ( Manual) 2, Basophils % (Manual) 0, Band Neutrophils 0, Platelet Estimate DecreasedL, Platelet Morphology Normal, Hypochromasia 3+, Poikilocytosis 2+, Anisocytosis 2+, Spherocytes 1+, [place] Cells 1+, Schistocytes 1+, Prothrombin Time 15.4H, Prothromb Time International Ratio 1.5H, Sodium Level 136, Potassium Level 4.7, Chloride Level 103, Carbon Dioxide Level 14L, Anion Gap 19H , Blood Urea Nitrogen 71H, Creatinine 7.2H, Estimat Glomerular Filtration Rate 6.5, Glucose Level 117H, Calcium Level 7.2L, Total Bilirubin 3.5H, Direct Bilirubin 2.3H, Aspartate Amino Transf (AST/SGOT) 89H, Alanine Aminotransferase (ALT/SGPT) 39, Alkaline Phosphatase 111, Ammonia 185H, Pro-B-Type Natriuretic Peptide 45757J, Total Protein 6.7, Albumin 1.8L, Globulin 4.9, Albumin/Globulin Ratio 0.4L Height (Feet): 5 Height (Inches): 3.00 Weight (Pounds): 304 General Appearance: no apparent distress EENT: TMs normal Neck: normal inspection Cardiovascular: normal rate Respiratory/Chest: lungs clear Abdomen: non tender Extremities: non-tender Edema: no edema noted Leg (L), no edema noted Leg (R) Michael Hernandez MD Aug 20, 2018 08:51
--- NOTE | 2018-08-20 09:30 | Pulmonolgy Critical Care Note ---
Critical Care - Asmt/Plan Problems: (1) GI bleed (2) Sepsis (3) Hemorrhagic shock (4) Coagulopathy (5) End stage liver disease (6) Alcoholic cirrhosis (7) Ascites (8) Hypotension (9) ATN (acute tubular necrosis) (10) Chronic renal insufficiency Respiratory: monitor respiratory rate, adjust FIO2 Cardiac: continue to monitor HR/BP Renal: F/U I&O Infectious Disease: check cultures Gastrointestinal: continue feedings/current rate Endocrine: monitor blood sugar Hematologic: monitor H/H, transfuse if hgb<8.5 Neurologic: PRN Ativan, keep patient comfortable Affect: PRN ativan Prophylaxis: Heparin Notes Reviewed: oiler bander, cardio, 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 with: nurses, consultants, case preparer and liner, other - family meeting Critical Care - Objective Last 24 Hour Vital Signs Date Time Temp Pulse Resp B/P (MAP) Pulse Ox O2 Delivery O2 Flow Rate FiO2 08/20/18 07:02 100 Nasal Cannula 2.0 28 08/20/18 07:02 Nasal Cannula 2.0 28 08/20/18 07:00 76 13 102/43 (62) 100 08/20/18 06:00 97.6 77 13 103/36 (58) 100 97.6 08/20/18 05:00 77 13 87/48 (61) 100 08/20/18 04:00 77 13 104/44 (64) 100 08/20/18 04:00 Nasal Cannula 2.0 08/20/18 04:00 79 08/20/18 03:00 77 13 102/45 (64) 100 08/20/18 02:00 75 13 102/46 (64) 100 08/20/18 01:00 75 13 105/44 (64) 100 08/20/18 00:00 75 12 104/47 (66) 100 08/20/18 00:00 76 08/20/18 00:00 Nasal Cannula 2.0 08/19/18 23:00 75 15 103/48 (66) 100 08/19/18 22:00 75 13 106/44 (64) 100 08/19/18 21:00 97.5 75 13 101/44 (63) 100 97.5 08/19/18 20:00 Nasal Cannula 2.0 08/19/18 20:00 97.5 75 13 103/41 (61) 100 97.5 08/19/18 20:00 74 08/19/18 19:00 100 Nasal Cannula 2.0 28 08/19/18 19:00 Nasal Cannula 2.0 28 08/19/18 19:00 75 12 106/50 (68) 100 08/19/18 18:00 73 15 101/44 (63) 100 08/19/18 17:00 74 15 96/39 (58) 100 08/19/18 16:00 97.4 74 15 97/40 (59) 100 97.4 08/19/18 16:00 73 08/19/18 16:00 Nasal Cannula 2.0 08/19/18 15:00 73 15 102/43 (62) 100 08/19/18 14:00 72 14 101/37 (58) 100 08/19/18 13:00 71 15 96/37 (56) 100 08/19/18 12:00 71 08/19/18 12:00 Nasal Cannula 2.0 08/19/18 12:00 97.4 71 15 103/36 (58) 100 97.4 Status: somnolent HEENT: atraumatic Lungs: clear Heart: HR/BP unstable Abdomen: soft, feeding tube Extremities: edema Decubiti: stage Micro: Microbiology Date/Time Source Procedure Growth Status 08/17/18 11:46 Blood Blood Culture - Preliminary NO GROWTH AFTER 48 HOURS Resulted 08/17/18 11:30 Blood Blood Culture - Preliminary NO GROWTH AFTER 48 HOURS Resulted 08/18/18 02:30 Nasal Nares MRSA Culture - Final NO METHICILLIN RESISTANT STAPH AUREUS... Complete 08/17/18 11:55 Urine,Clean Catch Urine Culture - Final Klebsiella Pneumoniae Esbl Citrobacter Freundii Complete Critical Care - Subjective ROS Limited/Unobtainable: No Condition: critical EKG Rhythm: Sinus Rhythm FI02: 28 Sputum Amount: None I&O: Intake and Output 08/19/18 08/20/18 19:00 07:00 Intake Total 1521.66 ml 350 ml Output Total 200 ml 280 ml Balance 1321.66 ml 70 ml IV Total 1521.66 ml 350 ml Output Urine Total 0 ml 30 ml Stool Total 200 ml 250 ml CXR: worsening pulmonary edema Labs: Laboratory Tests Test 08/20/18 06:45 White Blood Count 10.7 K/UL (4.8-10.8) Red Blood Count 2.34 M/UL (4.20-5.40) L Hemoglobin 7.9 G/DL (12.0-16.0) L Hematocrit 23.3 % (37.0-47.0) L Mean Corpuscular Volume 99 FL (80-99) Mean Corpuscular Hemoglobin 33.9 PG (27.0-31.0) H Mean Corpuscular Hemoglobin Concent 34.1 G/DL (32.0-36.0) Red Cell Distribution Width 18.2 % (11.6-14.8) H Platelet Count 53 K/UL (150-450) L Mean Platelet Volume 7.0 FL (6.5-10.1) Neutrophils (%) (Auto) % (45.0-75.0) Lymphocytes (%) (Auto) % (20.0-45.0) Monocytes (%) (Auto) % (1.0-10.0) Eosinophils (%) (Auto) % (0.0-3.0) Basophils (%) (Auto) % (0.0-2.0) Differential Total Cells Counted 100 Neutrophils % (Manual) 81 % (45-75) H Lymphocytes % (Manual) 11 % (20-45) L Monocytes % (Manual) 6 % (1-10) Eosinophils % (Manual) 2 % (0-3) Basophils % (Manual) 0 % (0-2) Band Neutrophils 0 % (0-8) Platelet Estimate Decreased L Platelet Morphology Normal Hypochromasia 3+ Poikilocytosis 2+ Anisocytosis 2+ Spherocytes 1+ [place] Cells 1+ Schistocytes 1+ Prothrombin Time 15.4 SEC (9.30-11.50) H Prothromb Time International Ratio 1.5 (0.9-1.1) H Sodium Level 136 MMOL/L (136-145) Potassium Level 4.7 MMOL/L (3.5-5.1) Chloride Level 103 MMOL/L (98-107) Carbon Dioxide Level 14 MMOL/L (21-32) L Anion Gap 19 mmol/L (5-15) H Blood Urea Nitrogen 71 mg/dL (7-18) H Creatinine 7.2 MG/DL (0.55-1.30) H Estimat Glomerular Filtration Rate 6.5 mL/min (>60) Glucose Level 117 MG/DL (74-106) H Calcium Level 7.2 MG/DL (8.5-10.1) L Total Bilirubin 3.5 MG/DL (0.2-1.0) H Direct Bilirubin 2.3 MG/DL (0.0-0.3) H Aspartate Amino Transf (AST/SGOT) 89 U/L (15-37) H Alanine Aminotransferase (ALT/SGPT) 39 U/L (12-78) Alkaline Phosphatase 111 U/L (46-116) Ammonia 185 umol/L (11-32) H Pro-B-Type Natriuretic Peptide 07458 pg/mL (0-125) H Total Protein 6.7 G/DL (6.4-8.2) Albumin 1.8 G/DL (3.4-5.0) L Globulin 4.9 g/dL Albumin/Globulin Ratio 0.4 (1.0-2.7) L Jose Roberto Burleson MD Aug 20, 2018 09:30
--- NOTE | 2018-08-20 11:03 | Infectious Diseases Prog Note ---
Assessment/Plan Assessment/Plan ASSESSMENT: The patient is a 38-year-old female with: 1. Probable sepsis, improving 2. Leukocytosis; SP -CXR: Pulmonary vascular congestion with increased interstitial markings , likely representing interstitial edema. This appears improved relative to the chest x-ray from 07/22/18 3. Urinary tract infection. u/a wbc 60-80, nit+, leuk large; ucx ESBL K. pna ( R zosyn, S ertapenem), Citrobacter freundi (R ancef, I Impienem, S ertapenem) 4. History of hepatitis panel and HIV serology negative. 5. GIB -s/p EGD 08/19: esophageal varices 6. Afebrile. 7. r/o bacteremia. -Bcx NTD 8. Acute renal insufficiency.; for HD today -Renal US: unremarkable 9. Rule out probable spontaneous bacterial peritonitis. 10. Thrombocytopenai -. Alcoholic cirrhosis. -. Esophageal varices. PLAN: -Continue Ertapenem #2/-10 for ESBL UTI -08/19 SP cefepime and Flagyl #3 -. Monitor BMP. -. Monitor cultures (blood).. -. Nephrology to follow on renal insufficiency. -. Based on the patient's clinical course and labs, we will do further recommendation. Thank you, Dr. Chauncey Fuentes, for allowing me to see this patient. I will follow the patient with you during this hospitalization. Subjective Allergies: Coded Allergies: LORAZEPAM (Verified Allergy, Unknown, 05/21/18) PENICILLINS (Verified Allergy, Unknown, 05/21/18) Subjective afebrile leukocytosis resolved Bcx NTD Objective Vital Signs Last 24 Hour Vital Signs Date Time Temp Pulse Resp B/P (MAP) Pulse Ox O2 Delivery O2 Flow Rate FiO2 08/20/18 07:02 100 Nasal Cannula 2.0 28 08/20/18 07:02 Nasal Cannula 2.0 28 08/20/18 07:00 76 13 102/43 (62) 100 08/20/18 06:00 97.6 77 13 103/36 (58) 100 97.6 08/20/18 05:00 77 13 87/48 (61) 100 08/20/18 04:00 77 13 104/44 (64) 100 08/20/18 04:00 Nasal Cannula 2.0 08/20/18 04:00 79 08/20/18 03:00 77 13 102/45 (64) 100 08/20/18 02:00 75 13 102/46 (64) 100 08/20/18 01:00 75 13 105/44 (64) 100 08/20/18 00:00 75 12 104/47 (66) 100 08/20/18 00:00 76 08/20/18 00:00 Nasal Cannula 2.0 08/19/18 23:00 75 15 103/48 (66) 100 08/19/18 22:00 75 13 106/44 (64) 100 08/19/18 21:00 97.5 75 13 101/44 (63) 100 97.5 08/19/18 20:00 Nasal Cannula 2.0 08/19/18 20:00 97.5 75 13 103/41 (61) 100 97.5 08/19/18 20:00 74 08/19/18 19:00 100 Nasal Cannula 2.0 28 08/19/18 19:00 Nasal Cannula 2.0 28 08/19/18 19:00 75 12 106/50 (68) 100 08/19/18 18:00 73 15 101/44 (63) 100 08/19/18 17:00 74 15 96/39 (58) 100 08/19/18 16:00 97.4 74 15 97/40 (59) 100 97.4 08/19/18 16:00 73 08/19/18 16:00 Nasal Cannula 2.0 08/19/18 15:00 73 15 102/43 (62) 100 08/19/18 14:00 72 14 101/37 (58) 100 08/19/18 13:00 71 15 96/37 (56) 100 08/19/18 12:00 71 08/19/18 12:00 Nasal Cannula 2.0 08/19/18 12:00 97.4 71 15 103/36 (58) 100 97.4 Height (Feet): 5 Height (Inches): 3.00 Weight (Pounds): 304 Objective HEENT: No pale conjunctivae. CHEST: Clear. HEART: S1 and S2. ABDOMEN: Obese and nontender. EXTREMITIES: No cyanosis at this time. There is no edema. NEUROLOGIC: Awake, but lethargic. Microbiology Date/Time Source Procedure Growth Status 08/17/18 11:46 Blood Blood Culture - Preliminary NO GROWTH AFTER 48 HOURS Resulted 08/17/18 11:30 Blood Blood Culture - Preliminary NO GROWTH AFTER 48 HOURS Resulted 08/18/18 02:30 Nasal Nares MRSA Culture - Final NO METHICILLIN RESISTANT STAPH AUREUS... Complete 08/17/18 11:55 Urine,Clean Catch Urine Culture - Final Klebsiella Pneumoniae Esbl Citrobacter Freundii Complete Laboratory Tests Test 08/20/18 06:45 White Blood Count 10.7 K/UL (4.8-10.8) Red Blood Count 2.34 M/UL (4.20-5.40) L Hemoglobin 7.9 G/DL (12.0-16.0) L Hematocrit 23.3 % (37.0-47.0) L Mean Corpuscular Volume 99 FL (80-99) Mean Corpuscular Hemoglobin 33.9 PG (27.0-31.0) H Mean Corpuscular Hemoglobin Concent 34.1 G/DL (32.0-36.0) Red Cell Distribution Width 18.2 % (11.6-14.8) H Platelet Count 53 K/UL (150-450) L Mean Platelet Volume 7.0 FL (6.5-10.1) Neutrophils (%) (Auto) % (45.0-75.0) Lymphocytes (%) (Auto) % (20.0-45.0) Monocytes (%) (Auto) % (1.0-10.0) Eosinophils (%) (Auto) % (0.0-3.0) Basophils (%) (Auto) % (0.0-2.0) Differential Total Cells Counted 100 Neutrophils % (Manual) 81 % (45-75) H Lymphocytes % (Manual) 11 % (20-45) L Monocytes % (Manual) 6 % (1-10) Eosinophils % (Manual) 2 % (0-3) Basophils % (Manual) 0 % (0-2) Band Neutrophils 0 % (0-8) Platelet Estimate Decreased L Platelet Morphology Normal Hypochromasia 3+ Poikilocytosis 2+ Anisocytosis 2+ Spherocytes 1+ [place] Cells 1+ Schistocytes 1+ Prothrombin Time 15.4 SEC (9.30-11.50) H Prothromb Time International Ratio 1.5 (0.9-1.1) H Sodium Level 136 MMOL/L (136-145) Potassium Level 4.7 MMOL/L (3.5-5.1) Chloride Level 103 MMOL/L (98-107) Carbon Dioxide Level 14 MMOL/L (21-32) L Anion Gap 19 mmol/L (5-15) H Blood Urea Nitrogen 71 mg/dL (7-18) H Creatinine 7.2 MG/DL (0.55-1.30) H Estimat Glomerular Filtration Rate 6.5 mL/min (>60) Glucose Level 117 MG/DL (74-106) H Calcium Level 7.2 MG/DL (8.5-10.1) L Total Bilirubin 3.5 MG/DL (0.2-1.0) H Direct Bilirubin 2.3 MG/DL (0.0-0.3) H Aspartate Amino Transf (AST/SGOT) 89 U/L (15-37) H Alanine Aminotransferase (ALT/SGPT) 39 U/L (12-78) Alkaline Phosphatase 111 U/L (46-116) Ammonia 185 umol/L (11-32) H Pro-B-Type Natriuretic Peptide 45652 pg/mL (0-125) H Total Protein 6.7 G/DL (6.4-8.2) Albumin 1.8 G/DL (3.4-5.0) L Globulin 4.9 g/dL Albumin/Globulin Ratio 0.4 (1.0-2.7) L Current Medications Medications (Trade) Dose Ordered Sig/Abner Route PRN Reason Start Time Stop Time Status Last Admin Dose Admin Al Hydroxide/Mg Hydroxide (Mylanta II) 30 ml Q6H PRN ORAL dyspepsia 08/17/18 16:18 09/16/18 16:17 Chlorhexidine Gluconate (Sierra-Hex 2%) 1 applic DAILY@2000 TOPIC 08/19/18 20:00 09/18/18 19:59 08/19/18 20:00 Dextrose (Dextrose 50%) 25 ml Q30M PRN IV Hypoglycemia 08/17/18 16:21 09/16/18 16:20 Dextrose (Dextrose 50%) 50 ml Q30M PRN IV Hypoglycemia 08/17/18 16:21 09/16/18 16:20 Ertapenem 0.5 gm/ Sodium Chloride 55 ml @ 110 mls/hr Q24H IVPB 08/19/18 14:00 10/13/18 13:59 08/19/18 15:36 Heparin Sodium/ Sodium Chloride (Heparin 2000 units/Ns 1000ml premix) 2,000 unit ONCE PRN INJ PICC PLACEMENT 08/19/18 12:00 08/20/18 23:59 Lactulose (Cephulac) 30 gm EVERY 6 HOURS ORAL 08/17/18 18:00 09/16/18 17:59 08/20/18 05:41 Lidocaine HCl (Xylocaine 1% 30ml) 30 ml ONCE PRN INJ PICC PLACEMENT 08/19/18 12:00 08/20/18 23:59 Morphine Sulfate (Morphine Sulfate) 2 mg Q4H PRN IVP For Pain 08/17/18 16:20 08/24/18 16:19 08/18/18 08:44 Octreotide Acetate 500 mcg/ Sodium Chloride 500 ml @ 50 mls/hr Q10H IV 08/19/18 11:00 09/18/18 10:59 08/20/18 05:42 Ondansetron HCl (Zofran) 4 mg Q6H PRN IVP Nausea & Vomiting 08/17/18 16:18 09/16/18 16:17 Pantoprazole (Protonix) 40 mg Q12H IVP 08/17/18 18:00 09/16/18 17:59 08/20/18 05:55 Polyethylene Glycol (Miralax) 17 gm HSPRN PRN ORAL Constipation 08/17/18 21:00 09/16/18 20:59 Sodium Bicarbonate (NaHCO3) 650 mg THREE TIMES A DAY ORAL 08/19/18 09:00 09/18/18 08:59 08/19/18 18:05 Stacy Perdomo M.D. Aug 20, 2018 11:03
[2018-08-20] MEDS: Sodium Bicarbonate 650mg Tab ORAL SCH (13:07)
--- NOTE | 2018-08-20 13:21 | Diagnostic Imaging Report ---
Indication: Dyspnea Comparison: 08/17/2018 A single view chest radiograph was obtained. Findings: Vascular prominence and interstitial edema demonstrated cardiomegaly. There is evidence of a left pleural effusion. IMPRESSION: Interstitial edema/CHF. Left pleural effusion
--- NOTE | 2018-08-20 13:35 | Diagnostic Imaging Report ---
Indication: Increased LFTs. Abdominal pain Technique: Grayscale and duplex Doppler imaging of the abdomen performed. Comparison: None Findings: The liver is echogenic and shows a surface nodularity. The liver measures about 18 cm. Gallbladder is absent. The pancreas, IVC are not visualized on this study. The spleen and left kidney are not visualized on this exam. This may be on the basis of body habitus and/or bowel gas. Right kidney is grossly unremarkable. Color Doppler flow imaging of the portal vein and tracings show reversed flow toward the spleen. The CBD is measured at 6.7 mm. There is trace ascites. IMPRESSION: Evidence of chronic liver disease with enlarged fatty liver and stigmata of portal hypertension including hepatofugal portal venous flow. Limited evaluation with nonvisualization of the spleen and left kidney, pancreas and IVC. Trace ascites.
[2018-08-20] MEDS: Ertapenem 0.5 GM in NS 55 ML IVPB SCH (14:00)
--- NOTE | 2018-08-20 14:30 | General Progress Note ---
Assessment/Plan Problem List: (1) Edema ICD Codes: R60.9 - Edema, unspecified SNOMED: 818862818, 273069014 (2) Anemia ICD Codes: D64.9 - Anemia, unspecified SNOMED: 973943243 (3) Alcoholic cirrhosis ICD Codes: K70.30 - Alcoholic cirrhosis of liver without ascites SNOMED: 749422325 (4) Esophageal varices ICD Codes: I85.00 - Esophageal varices without bleeding SNOMED: 48612622 (5) Leukocytosis ICD Codes: D72.829 - Elevated white blood cell count, unspecified SNOMED: 210627332, 561178836 (6) GI bleed ICD Codes: K92.2 - Gastrointestinal hemorrhage, unspecified SNOMED: 80992923 (7) LENI (acute kidney injury) ICD Codes: N17.9 - Acute kidney failure, unspecified SNOMED: 18304923 (8) Sepsis ICD Codes: A41.9 - Sepsis, unspecified organism SNOMED: 35462348 Status: unchanged Assessment/Plan abx oe pulm tx ransfuse prn gi heme f/u cbc bmp am Subjective Constitutional: Reports: weakness Allergies: Coded Allergies: LORAZEPAM (Verified Allergy, Unknown, 05/21/18) PENICILLINS (Verified Allergy, Unknown, 05/21/18) All Systems: reviewed and negative except above Subjective 02nc sleepy in icu Objective Last 24 Hour Vital Signs Date Time Temp Pulse Resp B/P (MAP) Pulse Ox O2 Delivery O2 Flow Rate FiO2 08/20/18 14:00 76 13 102/49 (66) 100 08/20/18 13:00 78 14 103/38 (59) 100 08/20/18 12:00 Nasal Cannula 2.0 08/20/18 12:00 97.8 77 15 106/51 (69) 100 97.8 08/20/18 11:00 77 14 104/42 (62) 100 08/20/18 10:00 78 14 106/51 (69) 100 08/20/18 09:00 76 14 106/43 (64) 100 08/20/18 08:00 Nasal Cannula 2.0 08/20/18 08:00 97.6 76 22 102/34 (56) 100 97.6 08/20/18 07:02 100 Nasal Cannula 2.0 28 08/20/18 07:02 Nasal Cannula 2.0 28 08/20/18 07:00 76 13 102/43 (62) 100 08/20/18 06:00 97.6 77 13 103/36 (58) 100 97.6 08/20/18 05:00 77 13 87/48 (61) 100 08/20/18 04:00 77 13 104/44 (64) 100 08/20/18 04:00 Nasal Cannula 2.0 08/20/18 04:00 79 08/20/18 03:00 77 13 102/45 (64) 100 08/20/18 02:00 75 13 102/46 (64) 100 08/20/18 01:00 75 13 105/44 (64) 100 08/20/18 00:00 75 12 104/47 (66) 100 08/20/18 00:00 76 08/20/18 00:00 Nasal Cannula 2.0 08/19/18 23:00 75 15 103/48 (66) 100 08/19/18 22:00 75 13 106/44 (64) 100 08/19/18 21:00 97.5 75 13 101/44 (63) 100 97.5 08/19/18 20:00 Nasal Cannula 2.0 08/19/18 20:00 97.5 75 13 103/41 (61) 100 97.5 08/19/18 20:00 74 08/19/18 19:00 100 Nasal Cannula 2.0 28 08/19/18 19:00 Nasal Cannula 2.0 28 08/19/18 19:00 75 12 106/50 (68) 100 08/19/18 18:00 73 15 101/44 (63) 100 08/19/18 17:00 74 15 96/39 (58) 100 08/19/18 16:00 97.4 74 15 97/40 (59) 100 97.4 08/19/18 16:00 73 08/19/18 16:00 Nasal Cannula 2.0 08/19/18 15:00 73 15 102/43 (62) 100 Intake and Output 08/19/18 08/20/18 19:00 07:00 Intake Total 1521.66 ml 350 ml Output Total 200 ml 280 ml Balance 1321.66 ml 70 ml IV Total 1521.66 ml 350 ml Output Urine Total 0 ml 30 ml Stool Total 200 ml 250 ml Laboratory Tests 08/20/18 06:45: White Blood Count 10.7, Red Blood Count 2.34L, Hemoglobin 7.9L, Hematocrit 23.3L , Mean Corpuscular Volume 99, Mean Corpuscular Hemoglobin 33.9H, Mean Corpuscular Hemoglobin Concent 34.1, Red Cell Distribution Width 18.2H, Platelet Count 53L, Mean Platelet Volume 7.0, Neutrophils (%) (Auto) , Lymphocytes (%) (Auto) , Monocytes (%) (Auto) , Eosinophils (%) (Auto) , Basophils (%) (Auto) , Differential Total Cells Counted 100, Neutrophils % ( Manual) 81H, Lymphocytes % (Manual) 11L, Monocytes % (Manual) 6, Eosinophils % ( Manual) 2, Basophils % (Manual) 0, Band Neutrophils 0, Platelet Estimate DecreasedL, Platelet Morphology Normal, Hypochromasia 3+, Poikilocytosis 2+, Anisocytosis 2+, Spherocytes 1+, [place] Cells 1+, Schistocytes 1+, Prothrombin Time 15.4H, Prothromb Time International Ratio 1.5H, Sodium Level 136, Potassium Level 4.7, Chloride Level 103, Carbon Dioxide Level 14L, Anion Gap 19H , Blood Urea Nitrogen 71H, Creatinine 7.2H, Estimat Glomerular Filtration Rate 6.5, Glucose Level 117H, Calcium Level 7.2L, Total Bilirubin 3.5H, Direct Bilirubin 2.3H, Aspartate Amino Transf (AST/SGOT) 89H, Alanine Aminotransferase (ALT/SGPT) 39, Alkaline Phosphatase 111, Ammonia 185H, Pro-B-Type Natriuretic Peptide 94460N, Total Protein 6.7, Albumin 1.8L, Globulin 4.9, Albumin/Globulin Ratio 0.4L Height (Feet): 5 Height (Inches): 3.00 Weight (Pounds): 304 General Appearance: lethargic EENT: normal ENT inspection Neck: normal alignment Cardiovascular: normal peripheral pulses, normal rate, regular rhythm Respiratory/Chest: chest wall non-tender, decreased breath sounds Abdomen: normal bowel sounds, non tender, soft Extremities: normal inspection Edema: no edema noted Arm (L), no edema noted Arm (R), no edema noted Leg (L), no edema noted Leg (R), no edema noted Pedal (L), no edema noted Pedal (R), no edema noted Generalized Neurologic: motor weakness Skin: normal pigmentation, warm/dry Chauncey Fuentes DO Aug 20, 2018 14:30
[2018-08-20] MEDS ORDERED: Octreotide Acetate 500 MCG in Sodium Chloride 500ML 499 ML IV SCH (15:00)
--- NOTE | 2018-08-20 15:00 | GI Progress Note ---
Assessment/Plan Problems: (1) Ascites ICD Codes: R18.8 - Other ascites SNOMED: 148723448 (2) Alcoholic cirrhosis ICD Codes: K70.30 - Alcoholic cirrhosis of liver without ascites SNOMED: 982584959 (3) Esophageal varices ICD Codes: I85.00 - Esophageal varices without bleeding SNOMED: 91437602 (4) Anemia ICD Codes: D64.9 - Anemia, unspecified SNOMED: 737495258 (5) Chronic renal insufficiency ICD Codes: N18.9 - Chronic kidney disease, unspecified SNOMED: 870198790 (6) Coagulopathy ICD Codes: D68.9 - Coagulation defect, unspecified SNOMED: 79452252 (7) Hemorrhagic shock ICD Codes: R57.8 - Other shock SNOMED: 535950 (8) GI bleed ICD Codes: K92.2 - Gastrointestinal hemorrhage, unspecified SNOMED: 98930333 Status: stable Status Narrative Discussed with Dr. Rodriguez. Assessment/Plan s/p EGD >> Esophageal varices, status post banding x7. RECOMMENDATIONS: CLD taper octreotide gtt IVFs abx prn transfusions fu labs The patient was seen and examined at bedside and all new and available data was reviewed in the patients chart. I agree with the above findings, impression and plan. (Patient seen earlier today. Signature stamp does not reflect patient encounter time.). - Christopher Rodriguez MD Subjective Subjective limited Objective Last 24 Hour Vital Signs Date Time Temp Pulse Resp B/P (MAP) Pulse Ox O2 Delivery O2 Flow Rate FiO2 08/20/18 14:00 76 13 102/49 (66) 100 08/20/18 13:00 78 14 103/38 (59) 100 08/20/18 12:00 Nasal Cannula 2.0 08/20/18 12:00 97.8 77 15 106/51 (69) 100 97.8 08/20/18 11:00 77 14 104/42 (62) 100 08/20/18 10:00 78 14 106/51 (69) 100 08/20/18 09:00 76 14 106/43 (64) 100 08/20/18 08:00 Nasal Cannula 2.0 08/20/18 08:00 97.6 76 22 102/34 (56) 100 97.6 08/20/18 07:02 100 Nasal Cannula 2.0 28 08/20/18 07:02 Nasal Cannula 2.0 28 08/20/18 07:00 76 13 102/43 (62) 100 08/20/18 06:00 97.6 77 13 103/36 (58) 100 97.6 08/20/18 05:00 77 13 87/48 (61) 100 08/20/18 04:00 77 13 104/44 (64) 100 08/20/18 04:00 Nasal Cannula 2.0 08/20/18 04:00 79 08/20/18 03:00 77 13 102/45 (64) 100 08/20/18 02:00 75 13 102/46 (64) 100 08/20/18 01:00 75 13 105/44 (64) 100 08/20/18 00:00 75 12 104/47 (66) 100 08/20/18 00:00 76 08/20/18 00:00 Nasal Cannula 2.0 08/19/18 23:00 75 15 103/48 (66) 100 08/19/18 22:00 75 13 106/44 (64) 100 08/19/18 21:00 97.5 75 13 101/44 (63) 100 97.5 08/19/18 20:00 Nasal Cannula 2.0 08/19/18 20:00 97.5 75 13 103/41 (61) 100 97.5 08/19/18 20:00 74 08/19/18 19:00 100 Nasal Cannula 2.0 28 08/19/18 19:00 Nasal Cannula 2.0 28 08/19/18 19:00 75 12 106/50 (68) 100 08/19/18 18:00 73 15 101/44 (63) 100 08/19/18 17:00 74 15 96/39 (58) 100 08/19/18 16:00 97.4 74 15 97/40 (59) 100 97.4 08/19/18 16:00 73 08/19/18 16:00 Nasal Cannula 2.0 08/19/18 15:00 73 15 102/43 (62) 100 Intake and Output 08/19/18 08/20/18 19:00 07:00 Intake Total 1521.66 ml 350 ml Output Total 200 ml 280 ml Balance 1321.66 ml 70 ml IV Total 1521.66 ml 350 ml Output Urine Total 0 ml 30 ml Stool Total 200 ml 250 ml Laboratory Tests Test 08/20/18 06:45 White Blood Count 10.7 K/UL (4.8-10.8) Red Blood Count 2.34 M/UL (4.20-5.40) L Hemoglobin 7.9 G/DL (12.0-16.0) L Hematocrit 23.3 % (37.0-47.0) L Mean Corpuscular Volume 99 FL (80-99) Mean Corpuscular Hemoglobin 33.9 PG (27.0-31.0) H Mean Corpuscular Hemoglobin Concent 34.1 G/DL (32.0-36.0) Red Cell Distribution Width 18.2 % (11.6-14.8) H Platelet Count 53 K/UL (150-450) L Mean Platelet Volume 7.0 FL (6.5-10.1) Neutrophils (%) (Auto) % (45.0-75.0) Lymphocytes (%) (Auto) % (20.0-45.0) Monocytes (%) (Auto) % (1.0-10.0) Eosinophils (%) (Auto) % (0.0-3.0) Basophils (%) (Auto) % (0.0-2.0) Differential Total Cells Counted 100 Neutrophils % (Manual) 81 % (45-75) H Lymphocytes % (Manual) 11 % (20-45) L Monocytes % (Manual) 6 % (1-10) Eosinophils % (Manual) 2 % (0-3) Basophils % (Manual) 0 % (0-2) Band Neutrophils 0 % (0-8) Platelet Estimate Decreased L Platelet Morphology Normal Hypochromasia 3+ Poikilocytosis 2+ Anisocytosis 2+ Spherocytes 1+ [place] Cells 1+ Schistocytes 1+ Prothrombin Time 15.4 SEC (9.30-11.50) H Prothromb Time International Ratio 1.5 (0.9-1.1) H Sodium Level 136 MMOL/L (136-145) Potassium Level 4.7 MMOL/L (3.5-5.1) Chloride Level 103 MMOL/L (98-107) Carbon Dioxide Level 14 MMOL/L (21-32) L Anion Gap 19 mmol/L (5-15) H Blood Urea Nitrogen 71 mg/dL (7-18) H Creatinine 7.2 MG/DL (0.55-1.30) H Estimat Glomerular Filtration Rate 6.5 mL/min (>60) Glucose Level 117 MG/DL (74-106) H Calcium Level 7.2 MG/DL (8.5-10.1) L Total Bilirubin 3.5 MG/DL (0.2-1.0) H Direct Bilirubin 2.3 MG/DL (0.0-0.3) H Aspartate Amino Transf (AST/SGOT) 89 U/L (15-37) H Alanine Aminotransferase (ALT/SGPT) 39 U/L (12-78) Alkaline Phosphatase 111 U/L (46-116) Ammonia 185 umol/L (11-32) H Pro-B-Type Natriuretic Peptide 65053 pg/mL (0-125) H Total Protein 6.7 G/DL (6.4-8.2) Albumin 1.8 G/DL (3.4-5.0) L Globulin 4.9 g/dL Albumin/Globulin Ratio 0.4 (1.0-2.7) L Height (Feet): 5 Height (Inches): 3.00 Weight (Pounds): 304 General Appearance: no apparent distress, lethargic Cardiovascular: normal rate Respiratory/Chest: normal breath sounds, no respiratory distress, other Abdominal Exam: normal bowel sounds, non tender, soft Extremities: non-tender Markus Lebron ELECTROLYSIST Aug 20, 2018 15:00
[2018-08-20] MEDS ORDERED: Heparin 5000 units/ml inj SUBQ SCH (15:30)
--- NOTE | 2018-08-20 15:34 | Operative Note - PDOC ---
Operative Note Operative Note Date of Operation/Procedure: Aug 20, 2018 Pre-op Diagnosis: Sepsis, renal insufficiency, critical care Procedure: right internal jugular temporary hemodialysis catheter insertion Post-op Diagnosis: same as pre-op Surgeon: beatrice Anesthesiologist: isaías Anesthesia: local, MAC Specimen: none Complications: none Condition: stable Fluids: n/a Estimated Blood Loss: minimal Drains: none Implant(s) used?: No Indications for Procedure 38F in ICU critically ill requiring urgent dialysis. renal insufficiency, septic, critical care. catheter requiring urgently. procedure indicated and recommended. consent obtained from mother. Description of Procedure patient made comfortable at bedside in the intensive care unit. pre procedure time out performed. protective sterile procedure with appropriate attire. ultrasound used to identify right Internal jugular vein as appropriate for line insertion. right neck prepped and draped in standard surgical fashion. patient positioned properly. using ultrasound guidance the right internal jugular vein was cannulated. guide wire placed over needle and needle removed. ultrasound identified wire in right internal jugular vein going towards the SVC. small skin incision made and dilators used over guide wire. 13cm temporary hemodialysis catheter inserted over wire and wire moved / discarded. all ports flushed and aspirated. catheter sutured in place. dressings applied. cxr taken. George Sorto Aug 20, 2018 15:34
--- NOTE | 2018-08-20 16:50 | Diagnostic Imaging Report ---
Indication: Status post Ander catheter insertion Comparison: 08/20/2018 at a earlier time A single view chest radiograph was obtained. Findings: A right jugular Ander catheter has been placed. The tip is projected over the SVC in good position. There is no pneumothorax. Moderate pulmonary edema noted. Left pleural effusion is present. IMPRESSION: Ander catheter in good position, cleared for use. This was conveyed to the ICU nurse 4:45 PM, 08/20/2018.
[2018-08-20] MEDS: Dyna-Hex 2% Top Sol 2oz TOPIC SCH (20:06)
[2018-08-21] VITALS (24 sets, daily range): BP systolic 91–140; BP diastolic 43–67
[2018-08-21] MEDS: Lactulose 20gm/30ml UDC ORAL SCH ×5 (00:43→23:50)
[2018-08-21] MEDS: Morphine Sulfate 2mg/ml Inj IVP PRN ×2 (01:58→11:00)
[2018-08-21 05:55] LABS: HEMOGLOBIN 7.5 G/DL (12.0-16.0); MEAN CORPUSCULAR VOLUME 100 FL (80-99); PLATELET COUNT 39 K/UL (150-450); RED CELL DISTRIBUTION WIDTH 17.7 % (11.6-14.8); WHITE BLOOD COUNT 10.4 K/UL (4.8-10.8)
[2018-08-21 06:05] LABS: INR 1.6 (0.9-1.1)
[2018-08-21 06:12] LABS: PHOSPHORUS 8.7 MG/DL (2.5-4.9)
[2018-08-21] MEDS: Pantoprazole Inj IVP SCH ×2 (06:18→19:11)
[2018-08-21 06:23] LABS: ALANINE AMINOTRANSFERASE 43 U/L (12-78); ALBUMIN 1.8 G/DL (3.4-5.0); ALBUMIN/GLOBULIN RATIO 0.4 (1.0-2.7); ALKALINE PHOSPHATASE 112 U/L (46-116); ANION GAP 19 mmol/L (5-15); ASPARTATE AMINO TRANSFERASE 86 U/L (15-37); BILIRUBIN,TOTAL 3.2 MG/DL (0.2-1.0); BLOOD UREA NITROGEN 65 mg/dL (7-18); CALCIUM 7.1 MG/DL (8.5-10.1); CARBON DIOXIDE 15 MMOL/L (21-32); CHLORIDE 105 MMOL/L (98-107); CREATININE 6.5 MG/DL (0.55-1.30); POTASSIUM 4.4 MMOL/L (3.5-5.1); SODIUM 139 MMOL/L (136-145)
[2018-08-21 06:26] LABS: BILIRUBIN,DIRECT 2.2 MG/DL (0.0-0.3)
--- NOTE | 2018-08-21 07:19 | General Progress Note ---
Assessment/Plan Assessment/Plan # Thrombocytopenia. Is most likely related to underlying liver disease with e/o portal htn. Hx of ETOH use. She does have evidence of hepatic cirrhosis, with surface nodularity an increased echogenicity. Evidence of portal hypertension, with ascites, splenomegaly, and flow reversal within the main and right portal vein. Evidence of prior cholecystectomy. Negative for dilated ducts. Prior CT and Us have been reviewed, hepatitis and hiv are both negative. --> Peripheral smear ordered and is negative for blasts, has been reviewed --> Abx and other meds have been reviewed. --> hold off heparin, asa, or plavix --> Transfuse plts if plt count >10k or if 20k and with fever --> agree with lactulose and potential rifaxamin for elev ammonia # Anemia due to gastrointestinal bleed. Hemoglobin on admission 5-8 range, likely bleed related, ferritin is 1125 --> Gastroenterology to evaluate and manage. --> on octreotide gtt --> currently stabilized # Coagulopathy is likely related to underlying liver disease, liver us has been ordered --> no evidence of bleeding hold off unless bleeding is noted --> VIt K or ffp before procedure # Anemia of chronic disease, multifactorial --> Previous w/u has been reviewed. --> Will trend CBC daily --> Hgb goal above 7 --> Blood tx: 08/17,08/18 # Acute kidney injury secondary to intravascular volume depletion along with ischemic acute tubular necrosis from hypotension. --> Nephro following. Appreciate recs. # Hyperkalemia secondary to renal insufficiency and gastrointestinal bleed. --> Initially potassium 6.2. The patient was given Kayexalate 60 g already. 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 Subjective Constitutional: Denies: no symptoms, chills, diaphoresis, fever, malaise, weakness, other HEENT: Denies: no symptoms, eye pain, blurred vision, tearing, double vision, ear pain, ear discharge, nose pain, nose congestion, throat pain, throat swelling, mouth pain, mouth swelling, other Cardiovascular: Denies: no symptoms, chest pain, edema, irregular heart rate, lightheadedness, palpitations, syncope, other Respiratory: Denies: no symptoms, cough, orthopnea, shortness of breath, SOB with excertion, SOB at rest, sputum, stridor, wheezing, other Gastrointestinal/Abdominal: Denies: no symptoms, abdomen distended, abdominal pain, black stools, tarry stools, blood in stool, constipated, diarrhea, difficulty swallowing, nausea, poor appetite, poor fluid intake, rectal bleeding , vomiting, other Neurologic/Psychiatric: Denies: no symptoms, anxiety, depressed, emotional problems, headache, numbness, paresthesia, pre-existing deficit, seizure, tingling, tremors, weakness, other Endocrine: Denies: no symptoms, excessive sweating, flushing, intolerance to cold, intolerance to heat, increased hunger, increased thirst, increased urine, unexplained weight gain, unexplained weight loss, other Hematologic/Lymphatic: Denies: no symptoms, anemia, easy bleeding, easy bruising, other Allergies: Coded Allergies: LORAZEPAM (Verified Allergy, Unknown, 05/21/18) PENICILLINS (Verified Allergy, Unknown, 05/21/18) Subjective more fatigue, feeling generally weak, remains ill, s/p HD, today again pending Objective Last 24 Hour Vital Signs Date Time Temp Pulse Resp B/P (MAP) Pulse Ox O2 Delivery O2 Flow Rate FiO2 08/21/18 07:00 97.6 72 14 103/50 (67) 100 97.6 08/21/18 06:00 72 14 100/46 (64) 100 08/21/18 05:00 71 14 103/48 (66) 100 08/21/18 04:00 74 14 104/46 (65) 100 08/21/18 04:00 71 08/21/18 04:00 Nasal Cannula 2.0 08/21/18 03:00 75 14 113/53 (73) 100 08/21/18 02:00 75 12 112/51 (71) 100 08/21/18 01:00 75 13 113/53 (73) 100 08/21/18 00:00 Nasal Cannula 2.0 08/21/18 00:00 72 08/21/18 00:00 75 14 112/51 (71) 100 08/20/18 23:00 97.5 75 14 112/51 (71) 100 97.5 08/20/18 22:00 75 14 110/45 (66) 100 08/20/18 21:00 75 14 110/45 (66) 100 08/20/18 20:00 Nasal Cannula 2.0 08/20/18 20:00 75 08/20/18 20:00 75 14 108/44 (65) 100 08/20/18 19:42 100 Nasal Cannula 2.0 28 08/20/18 19:42 Nasal Cannula 2.0 28 08/20/18 19:10 Nasal Cannula 3.0 08/20/18 19:00 97.5 77 14 109/37 (61) 100 97.5 08/20/18 18:00 80 14 103/44 (63) 100 08/20/18 17:34 Nasal Cannula 3.0 08/20/18 17:00 77 14 98/35 (56) 100 08/20/18 16:00 76 14 95/35 (55) 100 08/20/18 16:00 77 08/20/18 16:00 Nasal Cannula 2.0 08/20/18 15:00 77 14 106/49 (68) 100 08/20/18 14:00 76 13 102/49 (66) 100 08/20/18 13:00 78 14 103/38 (59) 100 08/20/18 12:00 76 08/20/18 12:00 Nasal Cannula 2.0 08/20/18 12:00 97.8 77 15 106/51 (69) 100 97.8 08/20/18 11:00 77 14 104/42 (62) 100 08/20/18 10:00 78 14 106/51 (69) 100 08/20/18 09:00 76 14 106/43 (64) 100 08/20/18 08:00 Nasal Cannula 2.0 08/20/18 08:00 97.6 76 22 102/34 (56) 100 97.6 08/20/18 08:00 76 Intake and Output 08/20/18 08/21/18 19:00 07:00 Intake Total 240 ml 275 ml Output Total 35 ml 1420 ml Balance 205 ml -1145 ml Intake Oral 30 ml 0 ml IV Total 210 ml 275 ml Output Urine Total 35 ml 20 ml Stool Total 200 ml Hemodialysis UF 1200 ml Laboratory Tests 08/20/18 16:32: Lactic Acid Level 6.10H 08/20/18 19:20: Lactic Acid Level 5.90H 08/21/18 05:10: White Blood Count 10.4, Red Blood Count 2.40L, Hemoglobin 7.5L, Hematocrit 24.0L , Mean Corpuscular Volume 100H, Mean Corpuscular Hemoglobin 31.4H, Mean Corpuscular Hemoglobin Concent 31.4L, Red Cell Distribution Width 17.7H, Platelet Count 39L, Mean Platelet Volume 11.1H, Neutrophils (%) (Auto) , Lymphocytes (%) (Auto) , Monocytes (%) (Auto) , Eosinophils (%) (Auto) , Basophils (%) (Auto) , Neutrophils % (Manual) [Pending], Lymphocytes % (Manual) [Pending], Platelet Estimate [Pending], Platelet Morphology [Pending], Prothrombin Time 16.0H, Prothromb Time International Ratio 1.6H, Activated Partial Thromboplast Time 40H, Sodium Level 139, Potassium Level 4.4, Chloride Level 105, Carbon Dioxide Level 15L, Anion Gap 19H, Blood Urea Nitrogen 65H, Creatinine 6.5H, Estimat Glomerular Filtration Rate 7.3, Glucose Level 107H, Calcium Level 7.1L, Phosphorus Level 8.7H, Magnesium Level 1.9, Total Bilirubin 3.2H, Direct Bilirubin 2.2H, Aspartate Amino Transf (AST/SGOT) 86H, Alanine Aminotransferase (ALT/SGPT) 43, Alkaline Phosphatase 112, Total Protein 6.5, Albumin 1.8L, Globulin 4.7, Albumin/Globulin Ratio 0.4L Height (Feet): 5 Height (Inches): 3.00 Weight (Pounds): 304 General Appearance: no apparent distress EENT: PERRL/EOMI Neck: normal inspection Cardiovascular: regular rhythm Respiratory/Chest: lungs clear Abdomen: no organomegaly Extremities: non-tender Edema: 1+ Leg (L), 1+ Leg (R) Edema: mild edema Neurologic: no motor/sensory deficits, responsive Skin: warm/dry Michael Hernandez MD Aug 21, 2018 07:19
--- NOTE | 2018-08-21 08:29 | Nephrology Progress Note ---
Assessment/Plan Assessment/Plan 1. LENI- multifact ATN ( hypotension/intravasc vol dep/?hepatorenal/Anemia) - MAP >65mmHg - HD today 2. Hyperk+- due to RI and metabolic acidosis - resolved 3. Hepatic Failure - alocohol 4. Met Acidosis- AG/Lactic - HD on high bicarb level 5. GI Bleed- octreotide, mgmt per GI Subjective Date patient seen: Aug 21, 2018 Time patient seen: 08:25 ROS Limited/Unobtainable: Yes Allergies: Coded Allergies: LORAZEPAM (Verified Allergy, Unknown, 05/21/18) PENICILLINS (Verified Allergy, Unknown, 05/21/18) Subjective Patient feeling ill, somnolent but arousable, lethargic Objective Last 24 Hour Vital Signs Date Time Temp Pulse Resp B/P (MAP) Pulse Ox O2 Delivery O2 Flow Rate FiO2 08/21/18 08:00 97.5 72 14 103/46 (65) 100 97.5 08/21/18 08:00 Nasal Cannula 2.0 08/21/18 07:00 97.6 72 14 103/50 (67) 100 97.6 08/21/18 06:00 72 14 100/46 (64) 100 08/21/18 05:00 71 14 103/48 (66) 100 08/21/18 04:00 74 14 104/46 (65) 100 08/21/18 04:00 71 08/21/18 04:00 Nasal Cannula 2.0 08/21/18 03:00 75 14 113/53 (73) 100 08/21/18 02:00 75 12 112/51 (71) 100 08/21/18 01:00 75 13 113/53 (73) 100 08/21/18 00:00 Nasal Cannula 2.0 08/21/18 00:00 72 08/21/18 00:00 75 14 112/51 (71) 100 08/20/18 23:00 97.5 75 14 112/51 (71) 100 97.5 08/20/18 22:00 75 14 110/45 (66) 100 08/20/18 21:00 75 14 110/45 (66) 100 08/20/18 20:00 Nasal Cannula 2.0 08/20/18 20:00 75 08/20/18 20:00 75 14 108/44 (65) 100 08/20/18 19:42 100 Nasal Cannula 2.0 28 08/20/18 19:42 Nasal Cannula 2.0 28 08/20/18 19:10 Nasal Cannula 3.0 08/20/18 19:00 97.5 77 14 109/37 (61) 100 97.5 08/20/18 18:00 80 14 103/44 (63) 100 08/20/18 17:34 Nasal Cannula 3.0 08/20/18 17:00 77 14 98/35 (56) 100 08/20/18 16:00 76 14 95/35 (55) 100 08/20/18 16:00 77 08/20/18 16:00 Nasal Cannula 2.0 08/20/18 15:00 77 14 106/49 (68) 100 08/20/18 14:00 76 13 102/49 (66) 100 08/20/18 13:00 78 14 103/38 (59) 100 08/20/18 12:00 76 08/20/18 12:00 Nasal Cannula 2.0 08/20/18 12:00 97.8 77 15 106/51 (69) 100 97.8 08/20/18 11:00 77 14 104/42 (62) 100 08/20/18 10:00 78 14 106/51 (69) 100 08/20/18 09:00 76 14 106/43 (64) 100 Intake and Output 08/20/18 08/21/18 19:00 07:00 Intake Total 240 ml 300 ml Output Total 35 ml 1420 ml Balance 205 ml -1120 ml Intake Oral 30 ml 0 ml IV Total 210 ml 300 ml Output Urine Total 35 ml 20 ml Stool Total 200 ml Hemodialysis UF 1200 ml Laboratory Tests 08/20/18 16:32: Lactic Acid Level 6.10H 08/20/18 19:20: Lactic Acid Level 5.90H 08/21/18 05:10: White Blood Count 10.4, Red Blood Count 2.40L, Hemoglobin 7.5L, Hematocrit 24.0L , Mean Corpuscular Volume 100H, Mean Corpuscular Hemoglobin 31.4H, Mean Corpuscular Hemoglobin Concent 31.4L, Red Cell Distribution Width 17.7H, Platelet Count 39L, Mean Platelet Volume 11.1H, Neutrophils (%) (Auto) , Lymphocytes (%) (Auto) , Monocytes (%) (Auto) , Eosinophils (%) (Auto) , Basophils (%) (Auto) , Neutrophils % (Manual) [Pending], Lymphocytes % (Manual) [Pending], Platelet Estimate [Pending], Platelet Morphology [Pending], Prothrombin Time 16.0H, Prothromb Time International Ratio 1.6H, Activated Partial Thromboplast Time 40H, Sodium Level 139, Potassium Level 4.4, Chloride Level 105, Carbon Dioxide Level 15L, Anion Gap 19H, Blood Urea Nitrogen 65H, Creatinine 6.5H, Estimat Glomerular Filtration Rate 7.3, Glucose Level 107H, Calcium Level 7.1L, Phosphorus Level 8.7H, Magnesium Level 1.9, Total Bilirubin 3.2H, Direct Bilirubin 2.2H, Aspartate Amino Transf (AST/SGOT) 86H, Alanine Aminotransferase (ALT/SGPT) 43, Alkaline Phosphatase 112, Total Protein 6.5, Albumin 1.8L, Globulin 4.7, Albumin/Globulin Ratio 0.4L Height (Feet): 5 Height (Inches): 3.00 Weight (Pounds): 304 General Appearance: lethargic, confused EENT: normal ENT inspection, scleral icterus Neck: normal alignment, supple Cardiovascular: normal rate, regular rhythm Respiratory/Chest: lungs clear Abdomen: non tender, soft, distended Edema: 1+ Arm (L), 1+ Arm (R), 1+ Leg (L), 1+ Leg (R), 1+ Pedal (L), 1+ Pedal ( R), 1+ Generalized Amos Pinon MD Aug 21, 2018 08:29
--- NOTE | 2018-08-21 10:31 | Pulmonolgy Critical Care Note ---
Critical Care - Asmt/Plan Problems: (1) Acute encephalopathy (2) GI bleed (3) Sepsis (4) Hemorrhagic shock (5) Coagulopathy (6) End stage liver disease (7) Alcoholic cirrhosis (8) Ascites (9) Hypotension (10) ATN (acute tubular necrosis) (11) Chronic renal insufficiency Respiratory: monitor respiratory rate, adjust FIO2, CXR Cardiac: continue to monitor HR/BP Renal: F/U I&O Infectious Disease: check cultures Gastrointestinal: continue feedings/current rate Endocrine: monitor blood sugar Hematologic: monitor H/H, transfuse if hgb<8.5 Neurologic: PRN Morphine, keep patient comfortable Prophylaxis: Protonix 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, 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 with: nurses, telephonic nurse case managerancillary services manager - Objective Last 24 Hour Vital Signs Date Time Temp Pulse Resp B/P (MAP) Pulse Ox O2 Delivery O2 Flow Rate FiO2 08/21/18 09:00 70 11 105/49 (67) 100 08/21/18 08:00 97.5 72 14 103/46 (65) 100 97.5 08/21/18 08:00 71 08/21/18 08:00 Nasal Cannula 2.0 08/21/18 07:00 97.6 72 14 103/50 (67) 100 97.6 08/21/18 06:00 72 14 100/46 (64) 100 08/21/18 05:00 71 14 103/48 (66) 100 08/21/18 04:00 74 14 104/46 (65) 100 08/21/18 04:00 71 08/21/18 04:00 Nasal Cannula 2.0 08/21/18 03:00 75 14 113/53 (73) 100 08/21/18 02:00 75 12 112/51 (71) 100 08/21/18 01:00 75 13 113/53 (73) 100 08/21/18 00:00 Nasal Cannula 2.0 08/21/18 00:00 72 08/21/18 00:00 75 14 112/51 (71) 100 08/20/18 23:00 97.5 75 14 112/51 (71) 100 97.5 08/20/18 22:00 75 14 110/45 (66) 100 08/20/18 21:00 75 14 110/45 (66) 100 08/20/18 20:00 Nasal Cannula 2.0 08/20/18 20:00 75 08/20/18 20:00 75 14 108/44 (65) 100 08/20/18 19:42 100 Nasal Cannula 2.0 28 08/20/18 19:42 Nasal Cannula 2.0 28 08/20/18 19:10 Nasal Cannula 3.0 08/20/18 19:00 97.5 77 14 109/37 (61) 100 97.5 08/20/18 18:00 80 14 103/44 (63) 100 08/20/18 17:34 Nasal Cannula 3.0 08/20/18 17:00 77 14 98/35 (56) 100 08/20/18 16:00 76 14 95/35 (55) 100 08/20/18 16:00 77 08/20/18 16:00 Nasal Cannula 2.0 08/20/18 15:00 77 14 106/49 (68) 100 08/20/18 14:00 76 13 102/49 (66) 100 08/20/18 13:00 78 14 103/38 (59) 100 08/20/18 12:00 76 08/20/18 12:00 Nasal Cannula 2.0 08/20/18 12:00 97.8 77 15 106/51 (69) 100 97.8 08/20/18 11:00 77 14 104/42 (62) 100 Status: somnolent Condition: critical HEENT: atraumatic Lungs: clear Heart: HR/BP stable Abdomen: soft, active bowel sounds Extremities: no C/C/E Critical Care - Subjective ROS Limited/Unobtainable: Yes Interval Events: got dialyzed yesterday Condition: critical EKG Rhythm: Sinus Rhythm FI02: 28 Sputum Amount: None I&O: Intake and Output 08/20/18 08/21/18 19:00 07:00 Intake Total 240 ml 300 ml Output Total 35 ml 1420 ml Balance 205 ml -1120 ml Intake Oral 30 ml 0 ml IV Total 210 ml 300 ml Output Urine Total 35 ml 20 ml Stool Total 200 ml Hemodialysis UF 1200 ml Labs: Laboratory Tests Test 08/20/18 16:32 08/20/18 19:20 08/21/18 05:10 Lactic Acid Level 6.10 mmol/L (0.4-2.0) H 5.90 mmol/L (0.4-2.0) H White Blood Count 10.4 K/UL (4.8-10.8) Red Blood Count 2.40 M/UL (4.20-5.40) L Hemoglobin 7.5 G/DL (12.0-16.0) L Hematocrit 24.0 % (37.0-47.0) L Mean Corpuscular Volume 100 FL (80-99) H Mean Corpuscular Hemoglobin 31.4 PG (27.0-31.0) H Mean Corpuscular Hemoglobin Concent 31.4 G/DL (32.0-36.0) L Red Cell Distribution Width 17.7 % (11.6-14.8) H Platelet Count 39 K/UL (150-450) L Mean Platelet Volume 11.1 FL (6.5-10.1) H Neutrophils (%) (Auto) % (45.0-75.0) Lymphocytes (%) (Auto) % (20.0-45.0) Monocytes (%) (Auto) % (1.0-10.0) Eosinophils (%) (Auto) % (0.0-3.0) Basophils (%) (Auto) % (0.0-2.0) Differential Total Cells Counted 100 Neutrophils % (Manual) 79 % (45-75) H Lymphocytes % (Manual) 13 % (20-45) L Monocytes % (Manual) 7 % (1-10) Eosinophils % (Manual) 0 % (0-3) Basophils % (Manual) 1 % (0-2) Band Neutrophils 0 % (0-8) Platelet Estimate Decreased L Platelet Morphology Normal Hypochromasia 2+ Anisocytosis 1+ Macrocytosis 1+ Prothrombin Time 16.0 SEC (9.30-11.50) H Prothromb Time International Ratio 1.6 (0.9-1.1) H Activated Partial Thromboplast Time 40 SEC (23-33) H Sodium Level 139 MMOL/L (136-145) Potassium Level 4.4 MMOL/L (3.5-5.1) Chloride Level 105 MMOL/L (98-107) Carbon Dioxide Level 15 MMOL/L (21-32) L Anion Gap 19 mmol/L (5-15) H Blood Urea Nitrogen 65 mg/dL (7-18) H Creatinine 6.5 MG/DL (0.55-1.30) H Estimat Glomerular Filtration Rate 7.3 mL/min (>60) Glucose Level 107 MG/DL (74-106) H Calcium Level 7.1 MG/DL (8.5-10.1) L Phosphorus Level 8.7 MG/DL (2.5-4.9) H Magnesium Level 1.9 MG/DL (1.8-2.4) Total Bilirubin 3.2 MG/DL (0.2-1.0) H Direct Bilirubin 2.2 MG/DL (0.0-0.3) H Aspartate Amino Transf (AST/SGOT) 86 U/L (15-37) H Alanine Aminotransferase (ALT/SGPT) 43 U/L (12-78) Alkaline Phosphatase 112 U/L (46-116) Total Protein 6.5 G/DL (6.4-8.2) Albumin 1.8 G/DL (3.4-5.0) L Globulin 4.7 g/dL Albumin/Globulin Ratio 0.4 (1.0-2.7) L Jose Roberto Burleson MD Aug 21, 2018 10:31
--- NOTE | 2018-08-21 11:37 | GI Progress Note ---
Assessment/Plan Problems: (1) Ascites ICD Codes: R18.8 - Other ascites SNOMED: 628672555 (2) Alcoholic cirrhosis ICD Codes: K70.30 - Alcoholic cirrhosis of liver without ascites SNOMED: 150931000 (3) Esophageal varices ICD Codes: I85.00 - Esophageal varices without bleeding SNOMED: 04675930 (4) Anemia ICD Codes: D64.9 - Anemia, unspecified SNOMED: 155795624 (5) Chronic renal insufficiency ICD Codes: N18.9 - Chronic kidney disease, unspecified SNOMED: 527304681 (6) Coagulopathy ICD Codes: D68.9 - Coagulation defect, unspecified SNOMED: 47013010 (7) Hemorrhagic shock ICD Codes: R57.8 - Other shock SNOMED: 639634 (8) GI bleed ICD Codes: K92.2 - Gastrointestinal hemorrhage, unspecified SNOMED: 73203951 Status: unchanged Status Narrative Discussed with Dr. Rodriguez. Assessment/Plan s/p EGD >> Esophageal varices, status post banding x7. RECOMMENDATIONS: CLD, adv as tolerated taper octreotide gtt, will dc today will need paracentesis when more stable IVFs abx prn transfusions fu labs The patient was seen and examined at bedside and all new and available data was reviewed in the patients chart. I agree with the above findings, impression and plan. (Patient seen earlier today. Signature stamp does not reflect patient encounter time.). - Christopher Rodriguez MD Subjective Subjective limited Objective Last 24 Hour Vital Signs Date Time Temp Pulse Resp B/P (MAP) Pulse Ox O2 Delivery O2 Flow Rate FiO2 08/21/18 11:00 71 19 103/43 (63) 100 08/21/18 10:00 74 21 95/50 (65) 100 08/21/18 09:00 70 11 105/49 (67) 100 08/21/18 08:00 97.5 72 14 103/46 (65) 100 97.5 08/21/18 08:00 71 08/21/18 08:00 Nasal Cannula 2.0 08/21/18 07:00 97.6 72 14 103/50 (67) 100 97.6 08/21/18 06:00 72 14 100/46 (64) 100 08/21/18 05:00 71 14 103/48 (66) 100 08/21/18 04:00 74 14 104/46 (65) 100 08/21/18 04:00 71 08/21/18 04:00 Nasal Cannula 2.0 08/21/18 03:00 75 14 113/53 (73) 100 08/21/18 02:00 75 12 112/51 (71) 100 08/21/18 01:00 75 13 113/53 (73) 100 08/21/18 00:00 Nasal Cannula 2.0 08/21/18 00:00 72 08/21/18 00:00 75 14 112/51 (71) 100 08/20/18 23:00 97.5 75 14 112/51 (71) 100 97.5 08/20/18 22:00 75 14 110/45 (66) 100 08/20/18 21:00 75 14 110/45 (66) 100 08/20/18 20:00 Nasal Cannula 2.0 08/20/18 20:00 75 08/20/18 20:00 75 14 108/44 (65) 100 08/20/18 19:42 100 Nasal Cannula 2.0 28 08/20/18 19:42 Nasal Cannula 2.0 28 08/20/18 19:10 Nasal Cannula 3.0 08/20/18 19:00 97.5 77 14 109/37 (61) 100 97.5 08/20/18 18:00 80 14 103/44 (63) 100 08/20/18 17:34 Nasal Cannula 3.0 08/20/18 17:00 77 14 98/35 (56) 100 08/20/18 16:00 76 14 95/35 (55) 100 08/20/18 16:00 77 08/20/18 16:00 Nasal Cannula 2.0 08/20/18 15:00 77 14 106/49 (68) 100 08/20/18 14:00 76 13 102/49 (66) 100 08/20/18 13:00 78 14 103/38 (59) 100 08/20/18 12:00 76 08/20/18 12:00 Nasal Cannula 2.0 08/20/18 12:00 97.8 77 15 106/51 (69) 100 97.8 Intake and Output 08/20/18 08/21/18 19:00 07:00 Intake Total 240 ml 300 ml Output Total 35 ml 1420 ml Balance 205 ml -1120 ml Intake Oral 30 ml 0 ml IV Total 210 ml 300 ml Output Urine Total 35 ml 20 ml Stool Total 200 ml Hemodialysis UF 1200 ml Laboratory Tests Test 08/20/18 16:32 08/20/18 19:20 08/21/18 05:10 Lactic Acid Level 6.10 mmol/L (0.4-2.0) H 5.90 mmol/L (0.4-2.0) H White Blood Count 10.4 K/UL (4.8-10.8) Red Blood Count 2.40 M/UL (4.20-5.40) L Hemoglobin 7.5 G/DL (12.0-16.0) L Hematocrit 24.0 % (37.0-47.0) L Mean Corpuscular Volume 100 FL (80-99) H Mean Corpuscular Hemoglobin 31.4 PG (27.0-31.0) H Mean Corpuscular Hemoglobin Concent 31.4 G/DL (32.0-36.0) L Red Cell Distribution Width 17.7 % (11.6-14.8) H Platelet Count 39 K/UL (150-450) L Mean Platelet Volume 11.1 FL (6.5-10.1) H Neutrophils (%) (Auto) % (45.0-75.0) Lymphocytes (%) (Auto) % (20.0-45.0) Monocytes (%) (Auto) % (1.0-10.0) Eosinophils (%) (Auto) % (0.0-3.0) Basophils (%) (Auto) % (0.0-2.0) Differential Total Cells Counted 100 Neutrophils % (Manual) 79 % (45-75) H Lymphocytes % (Manual) 13 % (20-45) L Monocytes % (Manual) 7 % (1-10) Eosinophils % (Manual) 0 % (0-3) Basophils % (Manual) 1 % (0-2) Band Neutrophils 0 % (0-8) Platelet Estimate Decreased L Platelet Morphology Normal Hypochromasia 2+ Anisocytosis 1+ Macrocytosis 1+ Prothrombin Time 16.0 SEC (9.30-11.50) H Prothromb Time International Ratio 1.6 (0.9-1.1) H Activated Partial Thromboplast Time 40 SEC (23-33) H Sodium Level 139 MMOL/L (136-145) Potassium Level 4.4 MMOL/L (3.5-5.1) Chloride Level 105 MMOL/L (98-107) Carbon Dioxide Level 15 MMOL/L (21-32) L Anion Gap 19 mmol/L (5-15) H Blood Urea Nitrogen 65 mg/dL (7-18) H Creatinine 6.5 MG/DL (0.55-1.30) H Estimat Glomerular Filtration Rate 7.3 mL/min (>60) Glucose Level 107 MG/DL (74-106) H Calcium Level 7.1 MG/DL (8.5-10.1) L Phosphorus Level 8.7 MG/DL (2.5-4.9) H Magnesium Level 1.9 MG/DL (1.8-2.4) Total Bilirubin 3.2 MG/DL (0.2-1.0) H Direct Bilirubin 2.2 MG/DL (0.0-0.3) H Aspartate Amino Transf (AST/SGOT) 86 U/L (15-37) H Alanine Aminotransferase (ALT/SGPT) 43 U/L (12-78) Alkaline Phosphatase 112 U/L (46-116) Total Protein 6.5 G/DL (6.4-8.2) Albumin 1.8 G/DL (3.4-5.0) L Globulin 4.7 g/dL Albumin/Globulin Ratio 0.4 (1.0-2.7) L Height (Feet): 5 Height (Inches): 3.00 Weight (Pounds): 304 General Appearance: WD/WN, no apparent distress, alert, confused Cardiovascular: normal rate Respiratory/Chest: normal breath sounds, no respiratory distress Abdominal Exam: normal bowel sounds, non tender, soft Extremities: non-tender Markus Lebron TSA SCREENER Aug 21, 2018 11:37
--- NOTE | 2018-08-21 13:56 | General Progress Note ---
Assessment/Plan Problem List: (1) Edema ICD Codes: R60.9 - Edema, unspecified SNOMED: 912014808, 773840094 (2) Anemia ICD Codes: D64.9 - Anemia, unspecified SNOMED: 945014400 (3) Alcoholic cirrhosis ICD Codes: K70.30 - Alcoholic cirrhosis of liver without ascites SNOMED: 536630213 (4) Esophageal varices ICD Codes: I85.00 - Esophageal varices without bleeding SNOMED: 62033345 (5) Leukocytosis ICD Codes: D72.829 - Elevated white blood cell count, unspecified SNOMED: 475516725, 763235044 (6) GI bleed ICD Codes: K92.2 - Gastrointestinal hemorrhage, unspecified SNOMED: 60950407 (7) LENI (acute kidney injury) ICD Codes: N17.9 - Acute kidney failure, unspecified SNOMED: 17082619 (8) Sepsis ICD Codes: A41.9 - Sepsis, unspecified organism SNOMED: 96383897 Status: unchanged Assessment/Plan abx oe pulm tx transfuse prn gi heme f/u dialysis prn cbc bmp am ltach eval Subjective Constitutional: Reports: weakness Allergies: Coded Allergies: LORAZEPAM (Verified Allergy, Unknown, 05/21/18) PENICILLINS (Verified Allergy, Unknown, 05/21/18) All Systems: reviewed and negative except above Subjective 02nc sleepy in icu getting dialysis Objective Last 24 Hour Vital Signs Date Time Temp Pulse Resp B/P (MAP) Pulse Ox O2 Delivery O2 Flow Rate FiO2 08/21/18 13:42 Nasal Cannula 300.0 08/21/18 13:00 69 13 103/48 (66) 100 08/21/18 12:00 70 08/21/18 12:00 97.0 70 12 103/48 (66) 100 97.0 08/21/18 12:00 Nasal Cannula 2.0 08/21/18 11:00 71 19 103/43 (63) 100 08/21/18 10:00 74 21 95/50 (65) 100 08/21/18 09:00 70 11 105/49 (67) 100 08/21/18 08:00 97.5 72 14 103/46 (65) 100 97.5 08/21/18 08:00 71 08/21/18 08:00 Nasal Cannula 2.0 08/21/18 07:00 97.6 72 14 103/50 (67) 100 97.6 08/21/18 06:00 72 14 100/46 (64) 100 08/21/18 05:00 71 14 103/48 (66) 100 08/21/18 04:00 74 14 104/46 (65) 100 08/21/18 04:00 71 08/21/18 04:00 Nasal Cannula 2.0 08/21/18 03:00 75 14 113/53 (73) 100 08/21/18 02:00 75 12 112/51 (71) 100 08/21/18 01:00 75 13 113/53 (73) 100 08/21/18 00:00 Nasal Cannula 2.0 08/21/18 00:00 72 08/21/18 00:00 75 14 112/51 (71) 100 08/20/18 23:00 97.5 75 14 112/51 (71) 100 97.5 08/20/18 22:00 75 14 110/45 (66) 100 08/20/18 21:00 75 14 110/45 (66) 100 08/20/18 20:00 Nasal Cannula 2.0 08/20/18 20:00 75 08/20/18 20:00 75 14 108/44 (65) 100 08/20/18 19:42 100 Nasal Cannula 2.0 28 08/20/18 19:42 Nasal Cannula 2.0 28 08/20/18 19:10 Nasal Cannula 3.0 08/20/18 19:00 97.5 77 14 109/37 (61) 100 97.5 08/20/18 18:00 80 14 103/44 (63) 100 08/20/18 17:34 Nasal Cannula 3.0 08/20/18 17:00 77 14 98/35 (56) 100 08/20/18 16:00 76 14 95/35 (55) 100 08/20/18 16:00 77 08/20/18 16:00 Nasal Cannula 2.0 08/20/18 15:00 77 14 106/49 (68) 100 08/20/18 14:00 76 13 102/49 (66) 100 Intake and Output 08/20/18 08/21/18 19:00 07:00 Intake Total 240 ml 300 ml Output Total 35 ml 1420 ml Balance 205 ml -1120 ml Intake Oral 30 ml 0 ml IV Total 210 ml 300 ml Output Urine Total 35 ml 20 ml Stool Total 200 ml Hemodialysis UF 1200 ml Laboratory Tests 08/20/18 16:32: Lactic Acid Level 6.10H 08/20/18 19:20: Lactic Acid Level 5.90H 08/21/18 05:10: White Blood Count 10.4, Red Blood Count 2.40L, Hemoglobin 7.5L, Hematocrit 24.0L , Mean Corpuscular Volume 100H, Mean Corpuscular Hemoglobin 31.4H, Mean Corpuscular Hemoglobin Concent 31.4L, Red Cell Distribution Width 17.7H, Platelet Count 39L, Mean Platelet Volume 11.1H, Neutrophils (%) (Auto) , Lymphocytes (%) (Auto) , Monocytes (%) (Auto) , Eosinophils (%) (Auto) , Basophils (%) (Auto) , Differential Total Cells Counted 100, Neutrophils % ( Manual) 79H, Lymphocytes % (Manual) 13L, Monocytes % (Manual) 7, Eosinophils % ( Manual) 0, Basophils % (Manual) 1, Band Neutrophils 0, Platelet Estimate DecreasedL, Platelet Morphology Normal, Hypochromasia 2+, Anisocytosis 1+, Macrocytosis 1+, Prothrombin Time 16.0H, Prothromb Time International Ratio 1.6H , Activated Partial Thromboplast Time 40H, Sodium Level 139, Potassium Level 4.4 , Chloride Level 105, Carbon Dioxide Level 15L, Anion Gap 19H, Blood Urea Nitrogen 65H, Creatinine 6.5H, Estimat Glomerular Filtration Rate 7.3, Glucose Level 107H, Calcium Level 7.1L, Phosphorus Level 8.7H, Magnesium Level 1.9, Total Bilirubin 3.2H, Direct Bilirubin 2.2H, Aspartate Amino Transf (AST/SGOT) 86H, Alanine Aminotransferase (ALT/SGPT) 43, Alkaline Phosphatase 112, Total Protein 6.5, Albumin 1.8L, Globulin 4.7, Albumin/Globulin Ratio 0.4L Height (Feet): 5 Height (Inches): 3.00 Weight (Pounds): 304 General Appearance: lethargic EENT: normal ENT inspection Neck: normal alignment Cardiovascular: normal peripheral pulses, normal rate, regular rhythm Respiratory/Chest: chest wall non-tender, decreased breath sounds Abdomen: normal bowel sounds, non tender, soft Extremities: normal inspection Edema: 1+ Arm (L), 1+ Arm (R), 1+ Leg (L), 1+ Leg (R), 1+ Pedal (L), 1+ Pedal ( R), 1+ Generalized Edema: trace edema Neurologic: motor weakness Skin: normal pigmentation, warm/dry Chauncey Fuentes DO Aug 21, 2018 13:56
[2018-08-21] MEDS: Ertapenem 0.5 GM in NS 55 ML IVPB SCH (15:41)
--- NOTE | 2018-08-21 16:03 | Infectious Diseases Prog Note ---
Assessment/Plan Assessment/Plan ASSESSMENT: The patient is a 38-year-old female with: 1. Probable sepsis, improving 2. Leukocytosis; SP -CXR: Pulmonary vascular congestion with increased interstitial markings , likely representing interstitial edema. This appears improved relative to the chest x-ray from 07/22/18 3. Urinary tract infection. u/a wbc 60-80, nit+, leuk large; ucx ESBL K. pna ( R zosyn, S ertapenem), Citrobacter freundi (R ancef, I Impienem, S ertapenem) 4. History of hepatitis panel and HIV serology negative. 5. GIB -s/p EGD 08/19: esophageal varices 6. Afebrile. 7. r/o bacteremia. -Bcx NTD 8. Acute renal insufficiency.; on HD -Renal US: unremarkable 9. Rule out probable spontaneous bacterial peritonitis. 10. Thrombocytopenai -. Alcoholic cirrhosis. -. Esophageal varices. PLAN: -Continue Ertapenem #3/-10 for ESBL UTI -08/19 SP cefepime and Flagyl #3 -. Monitor BMP. -. Monitor cultures (blood).. -. Nephrology to follow on renal insufficiency. -. Based on the patient's clinical course and labs, we will do further recommendation. Thank you, Dr. Chauncey Fuentes, for allowing me to see this patient. I will follow the patient with you during this hospitalization. Subjective Allergies: Coded Allergies: LORAZEPAM (Verified Allergy, Unknown, 05/21/18) PENICILLINS (Verified Allergy, Unknown, 05/21/18) Subjective afebrile no leukocytosis worsening thrombocytopenia Bcx NTD Objective Vital Signs Last 24 Hour Vital Signs Date Time Temp Pulse Resp B/P (MAP) Pulse Ox O2 Delivery O2 Flow Rate FiO2 08/21/18 15:19 Nasal Cannula 2.0 08/21/18 15:00 75 25 100/46 (64) 100 08/21/18 14:00 66 18 140/67 (91) 96 08/21/18 13:42 Nasal Cannula 300.0 08/21/18 13:00 69 13 103/48 (66) 100 08/21/18 12:00 70 08/21/18 12:00 97.0 70 12 103/48 (66) 100 97.0 08/21/18 12:00 Nasal Cannula 2.0 08/21/18 11:00 71 19 103/43 (63) 100 08/21/18 10:00 74 21 95/50 (65) 100 08/21/18 09:00 70 11 105/49 (67) 100 08/21/18 08:00 97.5 72 14 103/46 (65) 100 97.5 08/21/18 08:00 71 08/21/18 08:00 Nasal Cannula 2.0 08/21/18 07:00 97.6 72 14 103/50 (67) 100 97.6 08/21/18 06:00 72 14 100/46 (64) 100 08/21/18 05:00 71 14 103/48 (66) 100 08/21/18 04:00 74 14 104/46 (65) 100 08/21/18 04:00 71 08/21/18 04:00 Nasal Cannula 2.0 08/21/18 03:00 75 14 113/53 (73) 100 08/21/18 02:00 75 12 112/51 (71) 100 08/21/18 01:00 75 13 113/53 (73) 100 08/21/18 00:00 Nasal Cannula 2.0 08/21/18 00:00 72 08/21/18 00:00 75 14 112/51 (71) 100 08/20/18 23:00 97.5 75 14 112/51 (71) 100 97.5 08/20/18 22:00 75 14 110/45 (66) 100 08/20/18 21:00 75 14 110/45 (66) 100 08/20/18 20:00 Nasal Cannula 2.0 08/20/18 20:00 75 08/20/18 20:00 75 14 108/44 (65) 100 08/20/18 19:42 100 Nasal Cannula 2.0 28 08/20/18 19:42 Nasal Cannula 2.0 28 08/20/18 19:10 Nasal Cannula 3.0 08/20/18 19:00 97.5 77 14 109/37 (61) 100 97.5 08/20/18 18:00 80 14 103/44 (63) 100 08/20/18 17:34 Nasal Cannula 3.0 08/20/18 17:00 77 14 98/35 (56) 100 Height (Feet): 5 Height (Inches): 3.00 Weight (Pounds): 304 Objective HEENT: No pale conjunctivae. CHEST: Clear. HEART: S1 and S2. ABDOMEN: Obese and nontender. EXTREMITIES: No cyanosis at this time. There is no edema. NEUROLOGIC: Awake, but lethargic. Laboratory Tests Test 08/20/18 16:32 08/20/18 19:20 08/21/18 05:10 Lactic Acid Level 6.10 mmol/L (0.4-2.0) H 5.90 mmol/L (0.4-2.0) H White Blood Count 10.4 K/UL (4.8-10.8) Red Blood Count 2.40 M/UL (4.20-5.40) L Hemoglobin 7.5 G/DL (12.0-16.0) L Hematocrit 24.0 % (37.0-47.0) L Mean Corpuscular Volume 100 FL (80-99) H Mean Corpuscular Hemoglobin 31.4 PG (27.0-31.0) H Mean Corpuscular Hemoglobin Concent 31.4 G/DL (32.0-36.0) L Red Cell Distribution Width 17.7 % (11.6-14.8) H Platelet Count 39 K/UL (150-450) L Mean Platelet Volume 11.1 FL (6.5-10.1) H Neutrophils (%) (Auto) % (45.0-75.0) Lymphocytes (%) (Auto) % (20.0-45.0) Monocytes (%) (Auto) % (1.0-10.0) Eosinophils (%) (Auto) % (0.0-3.0) Basophils (%) (Auto) % (0.0-2.0) Differential Total Cells Counted 100 Neutrophils % (Manual) 79 % (45-75) H Lymphocytes % (Manual) 13 % (20-45) L Monocytes % (Manual) 7 % (1-10) Eosinophils % (Manual) 0 % (0-3) Basophils % (Manual) 1 % (0-2) Band Neutrophils 0 % (0-8) Platelet Estimate Decreased L Platelet Morphology Normal Hypochromasia 2+ Anisocytosis 1+ Macrocytosis 1+ Prothrombin Time 16.0 SEC (9.30-11.50) H Prothromb Time International Ratio 1.6 (0.9-1.1) H Activated Partial Thromboplast Time 40 SEC (23-33) H Sodium Level 139 MMOL/L (136-145) Potassium Level 4.4 MMOL/L (3.5-5.1) Chloride Level 105 MMOL/L (98-107) Carbon Dioxide Level 15 MMOL/L (21-32) L Anion Gap 19 mmol/L (5-15) H Blood Urea Nitrogen 65 mg/dL (7-18) H Creatinine 6.5 MG/DL (0.55-1.30) H Estimat Glomerular Filtration Rate 7.3 mL/min (>60) Glucose Level 107 MG/DL (74-106) H Calcium Level 7.1 MG/DL (8.5-10.1) L Phosphorus Level 8.7 MG/DL (2.5-4.9) H Magnesium Level 1.9 MG/DL (1.8-2.4) Total Bilirubin 3.2 MG/DL (0.2-1.0) H Direct Bilirubin 2.2 MG/DL (0.0-0.3) H Aspartate Amino Transf (AST/SGOT) 86 U/L (15-37) H Alanine Aminotransferase (ALT/SGPT) 43 U/L (12-78) Alkaline Phosphatase 112 U/L (46-116) Total Protein 6.5 G/DL (6.4-8.2) Albumin 1.8 G/DL (3.4-5.0) L Globulin 4.7 g/dL Albumin/Globulin Ratio 0.4 (1.0-2.7) L Current Medications Medications (Trade) Dose Ordered Sig/Abner Route PRN Reason Start Time Stop Time Status Last Admin Dose Admin Al Hydroxide/Mg Hydroxide (Mylanta II) 30 ml Q6H PRN ORAL dyspepsia 08/17/18 16:18 09/16/18 16:17 Chlorhexidine Gluconate (Sierra-Hex 2%) 1 applic DAILY@1999 TOPIC 08/19/18 20:00 09/18/18 19:59 08/20/18 20:06 Dextrose (Dextrose 50%) 25 ml Q30M PRN IV Hypoglycemia 08/17/18 16:21 09/16/18 16:20 Dextrose (Dextrose 50%) 50 ml Q30M PRN IV Hypoglycemia 08/17/18 16:21 09/16/18 16:20 Ertapenem 0.5 gm/ Sodium Chloride 55 ml @ 110 mls/hr Q24H IVPB 08/19/18 14:00 08/24/18 13:59 08/21/18 15:41 Lactulose (Cephulac) 30 gm EVERY 6 HOURS ORAL 08/17/18 18:00 09/16/18 17:59 08/21/18 06:18 Morphine Sulfate (Morphine Sulfate) 2 mg Q4H PRN IVP For Pain 08/17/18 16:20 08/24/18 16:19 08/21/18 11:00 Ondansetron HCl (Zofran) 4 mg Q6H PRN IVP Nausea & Vomiting 08/17/18 16:18 09/16/18 16:17 Pantoprazole (Protonix) 40 mg Q12H IVP 08/17/18 18:00 09/16/18 17:59 08/21/18 06:18 Polyethylene Glycol (Miralax) 17 gm HSPRN PRN ORAL Constipation 08/17/18 21:00 09/16/18 20:59 Stacy Perdomo M.D. Aug 21, 2018 16:03
[2018-08-21] MEDS: Dyna-Hex 2% Top Sol 2oz TOPIC SCH (19:34)
[2018-08-22] VITALS (11 sets, daily range): BP systolic 102–130; BP diastolic 48–70
[2018-08-22 05:38] LABS: INR 1.6 (0.9-1.1)
[2018-08-22] MEDS: Pantoprazole Inj IVP SCH ×2 (05:41→18:18)
[2018-08-22] MEDS: Lactulose 20gm/30ml UDC ORAL SCH ×3 (05:42→18:00)
[2018-08-22 05:45] LABS: HEMATOCRIT 21.7 % (37.0-47.0); HEMOGLOBIN 7.2 G/DL (12.0-16.0); MEAN CORPUSCULAR VOLUME 99 FL (80-99); PLATELET COUNT 24 K/UL (150-450); RED BLOOD COUNT 2.19 M/UL (4.20-5.40); RED CELL DISTRIBUTION WIDTH 18.2 % (11.6-14.8); WHITE BLOOD COUNT 7.6 K/UL (4.8-10.8)
[2018-08-22 05:56] LABS: PHOSPHORUS 7.5 MG/DL (2.5-4.9)
[2018-08-22] MEDS ORDERED: Mylanta II UD 30ml ORAL PRN (06:06)
[2018-08-22 06:07] LABS: ALANINE AMINOTRANSFERASE 41 U/L (12-78); ALBUMIN 1.8 G/DL (3.4-5.0); ALBUMIN/GLOBULIN RATIO 0.4 (1.0-2.7); ALKALINE PHOSPHATASE 114 U/L (46-116); ANION GAP 16 mmol/L (5-15); ASPARTATE AMINO TRANSFERASE 87 U/L (15-37); BLOOD UREA NITROGEN 56 mg/dL (7-18); CALCIUM 7.3 MG/DL (8.5-10.1); CARBON DIOXIDE 19 MMOL/L (21-32); CHLORIDE 105 MMOL/L (98-107); CREATININE 5.8 MG/DL (0.55-1.30); SODIUM 140 MMOL/L (136-145)
[2018-08-22 06:08] LABS: BILIRUBIN,DIRECT 2.1 MG/DL (0.0-0.3)
[2018-08-22] MEDS ORDERED: Miralax 17gm pkt ORAL PRN (06:11)
--- NOTE | 2018-08-22 07:59 | Nephrology Progress Note ---
Assessment/Plan Assessment/Plan 1. LENI- multifact ATN ( hypotension/intravasc vol dep/?hepatorenal/Anemia) - HD today 2. Hyperk+- due to RI and metabolic acidosis - resolved 3. Hepatic Failure - alcohol. 4. Met Acidosis- AG/Lactic - HD on high bicarb level and HCO3 at 19 5. GI Bleed- octreotide, mgmt per GI - lactulose Subjective Date patient seen: Aug 22, 2018 Time patient seen: 07:58 ROS Limited/Unobtainable: Yes Allergies: Coded Allergies: LORAZEPAM (Verified Allergy, Unknown, 05/21/18) PENICILLINS (Verified Allergy, Unknown, 05/21/18) Subjective Patient confused and lethargic Objective Last 24 Hour Vital Signs Date Time Temp Pulse Resp B/P (MAP) Pulse Ox O2 Delivery O2 Flow Rate FiO2 08/22/18 06:00 97.7 70 24 130/70 (90) 100 97.7 08/22/18 05:00 74 16 102/52 (69) 100 08/22/18 04:00 Nasal Cannula 2.0 08/22/18 04:00 97.6 71 14 104/56 (72) 100 97.6 08/22/18 04:00 58 08/22/18 03:00 97.6 67 12 102/56 (71) 100 97.6 08/22/18 01:00 68 12 103/51 (68) 100 08/22/18 00:00 Nasal Cannula 2.0 08/22/18 00:00 69 08/22/18 00:00 68 14 106/50 (68) 100 08/21/18 23:00 97.6 69 13 104/50 (68) 100 97.6 08/21/18 22:00 69 12 106/51 (69) 100 08/21/18 21:00 77 12 103/46 (65) 100 08/21/18 20:00 78 08/21/18 20:00 77 12 91/45 (60) 100 08/21/18 20:00 Nasal Cannula 2.0 08/21/18 19:15 100 Nasal Cannula 2.0 28 08/21/18 19:15 Nasal Cannula 2.0 28 08/21/18 19:00 97.6 72 22 104/45 (64) 100 97.6 08/21/18 18:00 72 21 103/53 (70) 100 08/21/18 17:00 74 21 103/53 (70) 100 08/21/18 16:00 75 08/21/18 16:00 97.0 72 22 103/46 (65) 100 97.0 08/21/18 16:00 Nasal Cannula 2.0 08/21/18 15:19 Nasal Cannula 2.0 08/21/18 15:00 75 25 100/46 (64) 100 08/21/18 14:00 66 18 140/67 (91) 96 08/21/18 13:42 Nasal Cannula 300.0 08/21/18 13:00 69 13 103/48 (66) 100 08/21/18 12:00 70 08/21/18 12:00 97.0 70 12 103/48 (66) 100 97.0 08/21/18 12:00 Nasal Cannula 2.0 08/21/18 11:00 71 19 103/43 (63) 100 08/21/18 10:00 74 21 95/50 (65) 100 08/21/18 09:00 70 11 105/49 (67) 100 08/21/18 08:00 97.5 72 14 103/46 (65) 100 97.5 08/21/18 08:00 71 08/21/18 08:00 Nasal Cannula 2.0 Intake and Output 08/21/18 08/22/18 19:00 07:00 Intake Total 55 ml 0 ml Output Total 1060 ml 60 ml Balance -1005 ml -60 ml Intake Oral 0 ml 0 ml IV Total 55 ml Output Urine Total 60 ml 60 ml Hemodialysis UF 1000 ml Laboratory Tests 08/22/18 04:00: White Blood Count 7.6, Red Blood Count 2.19L, Hemoglobin 7.2L, Hematocrit 21.7L , Mean Corpuscular Volume 99, Mean Corpuscular Hemoglobin 32.8H, Mean Corpuscular Hemoglobin Concent 33.1, Red Cell Distribution Width 18.2H, Platelet Count 24L, Mean Platelet Volume 11.2H, Neutrophils (%) (Auto) , Lymphocytes (%) (Auto) , Monocytes (%) (Auto) , Eosinophils (%) (Auto) , Basophils (%) (Auto) , Differential Total Cells Counted 100, Neutrophils % ( Manual) 69, Lymphocytes % (Manual) 22, Monocytes % (Manual) 8, Eosinophils % ( Manual) 1, Basophils % (Manual) 0, Band Neutrophils 0, Platelet Estimate DecreasedL, Platelet Morphology Normal, Hypochromasia 1+, Anisocytosis 2+, Target Cells 1+, Acanthocytes 1+, Schistocytes 1+, Prothrombin Time 16.7H, Prothromb Time International Ratio 1.6H, Activated Partial Thromboplast Time 40H , Sodium Level 140, Potassium Level 4.0, Chloride Level 105, Carbon Dioxide Level 19L, Anion Gap 16H, Blood Urea Nitrogen 56H, Creatinine 5.8H, Estimat Glomerular Filtration Rate 8.2, Glucose Level 107H, Lactic Acid Level 5.20H, Calcium Level 7.3L, Phosphorus Level 7.5H, Magnesium Level 1.8, Total Bilirubin 3.0H, Direct Bilirubin 2.1H, Aspartate Amino Transf (AST/SGOT) 87H, Alanine Aminotransferase (ALT/SGPT) 41, Alkaline Phosphatase 114, Total Protein 6.5, Albumin 1.8L, Globulin 4.7, Albumin/Globulin Ratio 0.4L Height (Feet): 5 Height (Inches): 3.00 Weight (Pounds): 304 General Appearance: lethargic, confused EENT: normal ENT inspection Neck: normal alignment, supple Cardiovascular: normal rate, regular rhythm Respiratory/Chest: rhonchi - bilaterally Abdomen: distended, guarding Edema: 4+ Arm (L), 4+ Arm (R), 4+ Leg (L), 4+ Leg (R), 4+ Pedal (L), 4+ Pedal ( R), 4+ Generalized Amos Pinon MD Aug 22, 2018 07:59
--- NOTE | 2018-08-22 10:47 | GI Progress Note ---
Assessment/Plan Problems: (1) Ascites ICD Codes: R18.8 - Other ascites SNOMED: 791973190 (2) Alcoholic cirrhosis ICD Codes: K70.30 - Alcoholic cirrhosis of liver without ascites SNOMED: 720267931 (3) Esophageal varices ICD Codes: I85.00 - Esophageal varices without bleeding SNOMED: 92211222 (4) Anemia ICD Codes: D64.9 - Anemia, unspecified SNOMED: 556907432 (5) Chronic renal insufficiency ICD Codes: N18.9 - Chronic kidney disease, unspecified SNOMED: 735627083 (6) Coagulopathy ICD Codes: D68.9 - Coagulation defect, unspecified SNOMED: 09987924 (7) Hemorrhagic shock ICD Codes: R57.8 - Other shock SNOMED: 924662 (8) GI bleed ICD Codes: K92.2 - Gastrointestinal hemorrhage, unspecified SNOMED: 65907955 Status: unchanged Status Narrative Discussed with Dr. Rodriguez. Assessment/Plan s/p EGD >> Esophageal varices, status post banding x7. RECOMMENDATIONS: CLD, adv as tolerated do not insert NGT or dobhoff, may cause rebleed Lactulose DC until more alert will need paracentesis when more stable IVFs abx prn transfusions fu labs The patient was seen and examined at bedside and all new and available data was reviewed in the patients chart. I agree with the above findings, impression and plan. (Patient seen earlier today. Signature stamp does not reflect patient encounter time.). - Christopher Rodriguez MD Subjective Subjective limited Objective Last 24 Hour Vital Signs Date Time Temp Pulse Resp B/P (MAP) Pulse Ox O2 Delivery O2 Flow Rate FiO2 08/22/18 08:00 96.4 71 18 107/61 (76) 100 96.4 08/22/18 08:00 67 08/22/18 07:00 96.4 71 18 107/61 (76) 100 96.4 08/22/18 06:00 97.7 70 24 130/70 (90) 100 97.7 08/22/18 05:00 74 16 102/52 (69) 100 08/22/18 04:00 Nasal Cannula 2.0 08/22/18 04:00 97.6 71 14 104/56 (72) 100 97.6 08/22/18 04:00 58 08/22/18 03:00 97.6 67 12 102/56 (71) 100 97.6 08/22/18 01:00 68 12 103/51 (68) 100 08/22/18 00:00 Nasal Cannula 2.0 08/22/18 00:00 69 08/22/18 00:00 68 14 106/50 (68) 100 08/21/18 23:00 97.6 69 13 104/50 (68) 100 97.6 08/21/18 22:00 69 12 106/51 (69) 100 08/21/18 21:00 77 12 103/46 (65) 100 08/21/18 20:00 78 08/21/18 20:00 77 12 91/45 (60) 100 08/21/18 20:00 Nasal Cannula 2.0 08/21/18 19:15 100 Nasal Cannula 2.0 28 08/21/18 19:15 Nasal Cannula 2.0 28 08/21/18 19:00 97.6 72 22 104/45 (64) 100 97.6 08/21/18 18:00 72 21 103/53 (70) 100 08/21/18 17:00 74 21 103/53 (70) 100 08/21/18 16:00 75 08/21/18 16:00 97.0 72 22 103/46 (65) 100 97.0 08/21/18 16:00 Nasal Cannula 2.0 08/21/18 15:19 Nasal Cannula 2.0 08/21/18 15:00 75 25 100/46 (64) 100 08/21/18 14:00 66 18 140/67 (91) 96 08/21/18 13:42 Nasal Cannula 300.0 08/21/18 13:00 69 13 103/48 (66) 100 08/21/18 12:00 70 08/21/18 12:00 97.0 70 12 103/48 (66) 100 97.0 08/21/18 12:00 Nasal Cannula 2.0 08/21/18 11:00 71 19 103/43 (63) 100 Intake and Output 08/21/18 08/22/18 19:00 07:00 Intake Total 55 ml 0 ml Output Total 1060 ml 60 ml Balance -1005 ml -60 ml Intake Oral 0 ml 0 ml IV Total 55 ml Output Urine Total 60 ml 60 ml Hemodialysis UF 1000 ml Laboratory Tests Test 08/22/18 04:00 08/22/18 10:05 White Blood Count 7.6 K/UL (4.8-10.8) Red Blood Count 2.19 M/UL (4.20-5.40) L Hemoglobin 7.2 G/DL (12.0-16.0) L Hematocrit 21.7 % (37.0-47.0) L Mean Corpuscular Volume 99 FL (80-99) Mean Corpuscular Hemoglobin 32.8 PG (27.0-31.0) H Mean Corpuscular Hemoglobin Concent 33.1 G/DL (32.0-36.0) Red Cell Distribution Width 18.2 % (11.6-14.8) H Platelet Count 24 K/UL (150-450) L Mean Platelet Volume 11.2 FL (6.5-10.1) H Neutrophils (%) (Auto) % (45.0-75.0) Lymphocytes (%) (Auto) % (20.0-45.0) Monocytes (%) (Auto) % (1.0-10.0) Eosinophils (%) (Auto) % (0.0-3.0) Basophils (%) (Auto) % (0.0-2.0) Differential Total Cells Counted 100 Neutrophils % (Manual) 69 % (45-75) Lymphocytes % (Manual) 22 % (20-45) Monocytes % (Manual) 8 % (1-10) Eosinophils % (Manual) 1 % (0-3) Basophils % (Manual) 0 % (0-2) Band Neutrophils 0 % (0-8) Platelet Estimate Decreased L Platelet Morphology Normal Hypochromasia 1+ Anisocytosis 2+ Target Cells 1+ Acanthocytes 1+ Schistocytes 1+ Prothrombin Time 16.7 SEC (9.30-11.50) H Prothromb Time International Ratio 1.6 (0.9-1.1) H Activated Partial Thromboplast Time 40 SEC (23-33) H Sodium Level 140 MMOL/L (136-145) Potassium Level 4.0 MMOL/L (3.5-5.1) Chloride Level 105 MMOL/L (98-107) Carbon Dioxide Level 19 MMOL/L (21-32) L Anion Gap 16 mmol/L (5-15) H Blood Urea Nitrogen 56 mg/dL (7-18) H Creatinine 5.8 MG/DL (0.55-1.30) H Estimat Glomerular Filtration Rate 8.2 mL/min (>60) Glucose Level 107 MG/DL (74-106) H Lactic Acid Level 5.20 mmol/L (0.4-2.0) H 4.70 mmol/L (0.4-2.0) H Calcium Level 7.3 MG/DL (8.5-10.1) L Phosphorus Level 7.5 MG/DL (2.5-4.9) H Magnesium Level 1.8 MG/DL (1.8-2.4) Total Bilirubin 3.0 MG/DL (0.2-1.0) H Direct Bilirubin 2.1 MG/DL (0.0-0.3) H Aspartate Amino Transf (AST/SGOT) 87 U/L (15-37) H Alanine Aminotransferase (ALT/SGPT) 41 U/L (12-78) Alkaline Phosphatase 114 U/L (46-116) Total Protein 6.5 G/DL (6.4-8.2) Albumin 1.8 G/DL (3.4-5.0) L Globulin 4.7 g/dL Albumin/Globulin Ratio 0.4 (1.0-2.7) L Height (Feet): 5 Height (Inches): 3.00 Weight (Pounds): 304 General Appearance: alert, confused Cardiovascular: normal rate Respiratory/Chest: normal breath sounds, no respiratory distress, other - NC Abdominal Exam: normal bowel sounds, non tender, soft, ascites Extremities: non-tender Markus Lebron NP Aug 22, 2018 10:47
[2018-08-22 12:16] LABS: APTT 1:1 NORMAL PLASMA 26.2 sec (22.9-30.2); APTT 1:1NP MIX 60M INCUBATION 27.1 sec (22.9-30.2); APTT 1:1NP MIX CONTROL 27.3 sec (22.9-30.2)
--- NOTE | 2018-08-22 12:34 | Pulmonolgy Critical Care Note ---
Critical Care - Asmt/Plan Problems: (1) Acute encephalopathy (2) GI bleed (3) Sepsis (4) Hemorrhagic shock (5) Coagulopathy (6) End stage liver disease (7) Alcoholic cirrhosis (8) Ascites (9) Hypotension (10) ATN (acute tubular necrosis) (11) Chronic renal insufficiency Respiratory: monitor respiratory rate, adjust FIO2, CXR Cardiac: continue to monitor HR/BP Renal: F/U I&O, keep IV fluid Infectious Disease: check cultures Gastrointestinal: hold feedings Endocrine: monitor blood sugar Hematologic: monitor H/H, transfuse if hgb<8.5 Neurologic: PRN Morphine, keep patient comfortable Prophylaxis: Protonix Disposition: keep in ICU Notes Reviewed: cardio Discussed with: nurses, consultants, field nurse case 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 development manager - Objective Last 24 Hour Vital Signs Date Time Temp Pulse Resp B/P (MAP) Pulse Ox O2 Delivery O2 Flow Rate FiO2 08/22/18 08:00 96.4 71 18 107/61 (76) 100 96.4 08/22/18 08:00 67 08/22/18 08:00 Nasal Cannula 2.0 08/22/18 07:00 96.4 71 18 107/61 (76) 100 96.4 08/22/18 06:00 97.7 70 24 130/70 (90) 100 97.7 08/22/18 05:00 74 16 102/52 (69) 100 08/22/18 04:00 Nasal Cannula 2.0 08/22/18 04:00 97.6 71 14 104/56 (72) 100 97.6 08/22/18 04:00 58 08/22/18 03:00 97.6 67 12 102/56 (71) 100 97.6 08/22/18 01:00 68 12 103/51 (68) 100 08/22/18 00:00 Nasal Cannula 2.0 08/22/18 00:00 69 08/22/18 00:00 68 14 106/50 (68) 100 08/21/18 23:00 97.6 69 13 104/50 (68) 100 97.6 08/21/18 22:00 69 12 106/51 (69) 100 08/21/18 21:00 77 12 103/46 (65) 100 08/21/18 20:00 78 08/21/18 20:00 77 12 91/45 (60) 100 08/21/18 20:00 Nasal Cannula 2.0 08/21/18 19:15 100 Nasal Cannula 2.0 28 08/21/18 19:15 Nasal Cannula 2.0 28 08/21/18 19:00 97.6 72 22 104/45 (64) 100 97.6 08/21/18 18:00 72 21 103/53 (70) 100 08/21/18 17:00 74 21 103/53 (70) 100 08/21/18 16:00 75 08/21/18 16:00 97.0 72 22 103/46 (65) 100 97.0 08/21/18 16:00 Nasal Cannula 2.0 08/21/18 15:19 Nasal Cannula 2.0 08/21/18 15:00 75 25 100/46 (64) 100 08/21/18 14:00 66 18 140/67 (91) 96 08/21/18 13:42 Nasal Cannula 300.0 08/21/18 13:00 69 13 103/48 (66) 100 Status: sedated, somnolent Condition: critical HEENT: atraumatic Neck: full ROM Heart: HR/BP stable Abdomen: soft, non-tender, feeding tube Extremities: no C/C/E Critical Care - Subjective ROS Limited/Unobtainable: Yes Condition: critical EKG Rhythm: Sinus Rhythm FI02: 28 Sputum Amount: None I&O: Intake and Output 08/21/18 08/22/18 19:00 07:00 Intake Total 55 ml 0 ml Output Total 1060 ml 60 ml Balance -1005 ml -60 ml Intake Oral 0 ml 0 ml IV Total 55 ml Output Urine Total 60 ml 60 ml Hemodialysis UF 1000 ml Labs: Laboratory Tests Test 08/22/18 04:00 08/22/18 10:05 White Blood Count 7.6 K/UL (4.8-10.8) Red Blood Count 2.19 M/UL (4.20-5.40) L Hemoglobin 7.2 G/DL (12.0-16.0) L Hematocrit 21.7 % (37.0-47.0) L Mean Corpuscular Volume 99 FL (80-99) Mean Corpuscular Hemoglobin 32.8 PG (27.0-31.0) H Mean Corpuscular Hemoglobin Concent 33.1 G/DL (32.0-36.0) Red Cell Distribution Width 18.2 % (11.6-14.8) H Platelet Count 24 K/UL (150-450) L Mean Platelet Volume 11.2 FL (6.5-10.1) H Neutrophils (%) (Auto) % (45.0-75.0) Lymphocytes (%) (Auto) % (20.0-45.0) Monocytes (%) (Auto) % (1.0-10.0) Eosinophils (%) (Auto) % (0.0-3.0) Basophils (%) (Auto) % (0.0-2.0) Differential Total Cells Counted 100 Neutrophils % (Manual) 69 % (45-75) Lymphocytes % (Manual) 22 % (20-45) Monocytes % (Manual) 8 % (1-10) Eosinophils % (Manual) 1 % (0-3) Basophils % (Manual) 0 % (0-2) Band Neutrophils 0 % (0-8) Platelet Estimate Decreased L Platelet Morphology Normal Hypochromasia 1+ Anisocytosis 2+ Target Cells 1+ Acanthocytes 1+ Schistocytes 1+ Prothrombin Time 16.7 SEC (9.30-11.50) H Prothromb Time International Ratio 1.6 (0.9-1.1) H Activated Partial Thromboplast Time 40 SEC (23-33) H Sodium Level 140 MMOL/L (136-145) Potassium Level 4.0 MMOL/L (3.5-5.1) Chloride Level 105 MMOL/L (98-107) Carbon Dioxide Level 19 MMOL/L (21-32) L Anion Gap 16 mmol/L (5-15) H Blood Urea Nitrogen 56 mg/dL (7-18) H Creatinine 5.8 MG/DL (0.55-1.30) H Estimat Glomerular Filtration Rate 8.2 mL/min (>60) Glucose Level 107 MG/DL (74-106) H Lactic Acid Level 5.20 mmol/L (0.4-2.0) H 4.70 mmol/L (0.4-2.0) H Calcium Level 7.3 MG/DL (8.5-10.1) L Phosphorus Level 7.5 MG/DL (2.5-4.9) H Magnesium Level 1.8 MG/DL (1.8-2.4) Total Bilirubin 3.0 MG/DL (0.2-1.0) H Direct Bilirubin 2.1 MG/DL (0.0-0.3) H Aspartate Amino Transf (AST/SGOT) 87 U/L (15-37) H Alanine Aminotransferase (ALT/SGPT) 41 U/L (12-78) Alkaline Phosphatase 114 U/L (46-116) Total Protein 6.5 G/DL (6.4-8.2) Albumin 1.8 G/DL (3.4-5.0) L Globulin 4.7 g/dL Albumin/Globulin Ratio 0.4 (1.0-2.7) L Jose Roberto Burleson MD Aug 22, 2018 12:34
--- NOTE | 2018-08-22 12:52 | Infectious Diseases Prog Note ---
Assessment/Plan Assessment/Plan ASSESSMENT: The patient is a 38-year-old female with: 1. Probable sepsis, improving 2. Leukocytosis; SP -CXR: Pulmonary vascular congestion with increased interstitial markings , likely representing interstitial edema. This appears improved relative to the chest x-ray from 07/22/18 3. Urinary tract infection. u/a wbc 60-80, nit+, leuk large; ucx ESBL K. pna ( R zosyn, S ertapenem), Citrobacter freundi (R ancef, I Impienem, S ertapenem) 4. History of hepatitis panel and HIV serology negative. 5. GIB -s/p EGD 08/19: esophageal varices 6. Afebrile. 7. r/o bacteremia. -Bcx NTD 8. Acute renal insufficiency.; on HD -Renal US: unremarkable 9. Rule out probable spontaneous bacterial peritonitis. 10. Thrombocytopenai -. Alcoholic cirrhosis. -. Esophageal varices. PLAN: -Continue Ertapenem #4/-10 for ESBL UTI -08/19 SP cefepime and Flagyl #3 -. Monitor BMP. -. Monitor cultures (blood).. -. Nephrology to follow on renal insufficiency. -. Based on the patient's clinical course and labs, we will do further recommendation. Thank you, Dr. Chauncey Fuentes, for allowing me to see this patient. I will follow the patient with you during this hospitalization. Subjective Allergies: Coded Allergies: LORAZEPAM (Verified Allergy, Unknown, 05/21/18) PENICILLINS (Verified Allergy, Unknown, 05/21/18) Subjective afebrile no leukocytosis worsening thrombocytopenia Bcx NTD transferred to [facility] Objective Vital Signs Last 24 Hour Vital Signs Date Time Temp Pulse Resp B/P (MAP) Pulse Ox O2 Delivery O2 Flow Rate FiO2 08/22/18 12:00 96.4 72 20 109/62 (78) 100 96.4 08/22/18 08:00 96.4 71 18 107/61 (76) 100 96.4 08/22/18 08:00 67 08/22/18 08:00 Nasal Cannula 2.0 08/22/18 07:00 96.4 71 18 107/61 (76) 100 96.4 08/22/18 06:00 97.7 70 24 130/70 (90) 100 97.7 08/22/18 05:00 74 16 102/52 (69) 100 08/22/18 04:00 Nasal Cannula 2.0 08/22/18 04:00 97.6 71 14 104/56 (72) 100 97.6 08/22/18 04:00 58 08/22/18 03:00 97.6 67 12 102/56 (71) 100 97.6 08/22/18 01:00 68 12 103/51 (68) 100 08/22/18 00:00 Nasal Cannula 2.0 08/22/18 00:00 69 08/22/18 00:00 68 14 106/50 (68) 100 08/21/18 23:00 97.6 69 13 104/50 (68) 100 97.6 08/21/18 22:00 69 12 106/51 (69) 100 08/21/18 21:00 77 12 103/46 (65) 100 08/21/18 20:00 78 08/21/18 20:00 77 12 91/45 (60) 100 08/21/18 20:00 Nasal Cannula 2.0 08/21/18 19:15 100 Nasal Cannula 2.0 28 08/21/18 19:15 Nasal Cannula 2.0 28 08/21/18 19:00 97.6 72 22 104/45 (64) 100 97.6 08/21/18 18:00 72 21 103/53 (70) 100 08/21/18 17:00 74 21 103/53 (70) 100 08/21/18 16:00 75 08/21/18 16:00 97.0 72 22 103/46 (65) 100 97.0 08/21/18 16:00 Nasal Cannula 2.0 08/21/18 15:19 Nasal Cannula 2.0 08/21/18 15:00 75 25 100/46 (64) 100 08/21/18 14:00 66 18 140/67 (91) 96 08/21/18 13:42 Nasal Cannula 300.0 08/21/18 13:00 69 13 103/48 (66) 100 Height (Feet): 5 Height (Inches): 3.00 Weight (Pounds): 304 Objective HEENT: No pale conjunctivae. CHEST: Clear. HEART: S1 and S2. ABDOMEN: Obese and nontender. EXTREMITIES: No cyanosis at this time. There is no edema. NEUROLOGIC: Awake, but lethargic. Laboratory Tests Test 08/22/18 04:00 08/22/18 10:05 White Blood Count 7.6 K/UL (4.8-10.8) Red Blood Count 2.19 M/UL (4.20-5.40) L Hemoglobin 7.2 G/DL (12.0-16.0) L Hematocrit 21.7 % (37.0-47.0) L Mean Corpuscular Volume 99 FL (80-99) Mean Corpuscular Hemoglobin 32.8 PG (27.0-31.0) H Mean Corpuscular Hemoglobin Concent 33.1 G/DL (32.0-36.0) Red Cell Distribution Width 18.2 % (11.6-14.8) H Platelet Count 24 K/UL (150-450) L Mean Platelet Volume 11.2 FL (6.5-10.1) H Neutrophils (%) (Auto) % (45.0-75.0) Lymphocytes (%) (Auto) % (20.0-45.0) Monocytes (%) (Auto) % (1.0-10.0) Eosinophils (%) (Auto) % (0.0-3.0) Basophils (%) (Auto) % (0.0-2.0) Differential Total Cells Counted 100 Neutrophils % (Manual) 69 % (45-75) Lymphocytes % (Manual) 22 % (20-45) Monocytes % (Manual) 8 % (1-10) Eosinophils % (Manual) 1 % (0-3) Basophils % (Manual) 0 % (0-2) Band Neutrophils 0 % (0-8) Platelet Estimate Decreased L Platelet Morphology Normal Hypochromasia 1+ Anisocytosis 2+ Target Cells 1+ Acanthocytes 1+ Schistocytes 1+ Prothrombin Time 16.7 SEC (9.30-11.50) H Prothromb Time International Ratio 1.6 (0.9-1.1) H Activated Partial Thromboplast Time 40 SEC (23-33) H Sodium Level 140 MMOL/L (136-145) Potassium Level 4.0 MMOL/L (3.5-5.1) Chloride Level 105 MMOL/L (98-107) Carbon Dioxide Level 19 MMOL/L (21-32) L Anion Gap 16 mmol/L (5-15) H Blood Urea Nitrogen 56 mg/dL (7-18) H Creatinine 5.8 MG/DL (0.55-1.30) H Estimat Glomerular Filtration Rate 8.2 mL/min (>60) Glucose Level 107 MG/DL (74-106) H Lactic Acid Level 5.20 mmol/L (0.4-2.0) H 4.70 mmol/L (0.4-2.0) H Calcium Level 7.3 MG/DL (8.5-10.1) L Phosphorus Level 7.5 MG/DL (2.5-4.9) H Magnesium Level 1.8 MG/DL (1.8-2.4) Total Bilirubin 3.0 MG/DL (0.2-1.0) H Direct Bilirubin 2.1 MG/DL (0.0-0.3) H Aspartate Amino Transf (AST/SGOT) 87 U/L (15-37) H Alanine Aminotransferase (ALT/SGPT) 41 U/L (12-78) Alkaline Phosphatase 114 U/L (46-116) Total Protein 6.5 G/DL (6.4-8.2) Albumin 1.8 G/DL (3.4-5.0) L Globulin 4.7 g/dL Albumin/Globulin Ratio 0.4 (1.0-2.7) L Current Medications Medications (Trade) Dose Ordered Sig/Abner Route PRN Reason Start Time Stop Time Status Last Admin Dose Admin Al Hydroxide/Mg Hydroxide (Mylanta II) 30 ml Q6H PRN ORAL dyspepsia 08/22/18 06:06 09/16/18 06:05 Chlorhexidine Gluconate (Sierra-Hex 2%) 1 applic DAILY@2000 TOPIC 08/22/18 20:00 09/18/18 19:59 Dextrose (Dextrose 50%) 25 ml Q30M PRN IV Hypoglycemia 08/22/18 06:30 09/16/18 16:20 Dextrose (Dextrose 50%) 50 ml Q30M PRN IV Hypoglycemia 08/22/18 06:30 09/16/18 16:20 Ertapenem 0.5 gm/ Sodium Chloride 55 ml @ 110 mls/hr Q24H IVPB 08/22/18 14:00 08/25/18 13:59 Lactulose (Cephulac) 30 gm EVERY 6 HOURS ORAL 08/22/18 12:00 09/16/18 11:59 Lactulose (Cephulac) 60 gm THREE TIMES A DAY RECTAL 08/22/18 13:00 09/21/18 12:59 Morphine Sulfate (Morphine Sulfate) 2 mg Q4H PRN IVP For Pain 08/22/18 06:08 08/24/18 06:07 Ondansetron HCl (Zofran) 4 mg Q6H PRN IVP Nausea & Vomiting 08/22/18 06:09 09/16/18 06:08 Pantoprazole (Protonix) 40 mg Q12H IVP 08/22/18 18:00 09/16/18 17:59 Polyethylene Glycol (Miralax) 17 gm HSPRN PRN ORAL Constipation 08/22/18 06:11 09/16/18 06:10 Stacy Perdomo M.D. Aug 22, 2018 12:52
--- NOTE | 2018-08-22 13:08 | General Progress Note ---
Assessment/Plan Status: stable Assessment/Plan # Thrombocytopenia. Is most likely related to underlying liver disease with e/o portal htn. Hx of ETOH use. She does have evidence of hepatic cirrhosis, with surface nodularity an increased echogenicity. Evidence of portal hypertension, with ascites, splenomegaly, and flow reversal within the main and right portal vein. Evidence of prior cholecystectomy. Negative for dilated ducts. Prior CT and Us have been reviewed, hepatitis and hiv are both negative. --> Peripheral smear ordered and is negative for blasts, has been reviewed --> Abx and other meds have been reviewed. --> hold off heparin, asa, or plavix --> Transfuse plts if plt count >10k or if 20k and with fever --> agree with lactulose and potential rifaxamin for elev ammonia # Anemia due to gastrointestinal bleed. Hemoglobin on admission 5-8 range, likely bleed related, ferritin is 1125 --> Gastroenterology to evaluate and manage. --> on octreotide gtt --> currently stabilized # Coagulopathy is likely related to underlying liver disease, liver us has been ordered --> no evidence of bleeding hold off unless bleeding is noted --> VIt K or ffp before procedure # Anemia of chronic disease, multifactorial --> Previous w/u has been reviewed. --> Will trend CBC daily --> Hgb goal above 7 --> Blood tx: 08/17,08/18, 08/19 # Acute kidney injury secondary to intravascular volume depletion along with ischemic acute tubular necrosis from hypotension. --> Nephro following. Appreciate recs. # Hyperkalemia secondary to renal insufficiency and gastrointestinal bleed. --> Initially potassium 6.2. The patient was given Kayexalate 60 g already. 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 Subjective Date patient seen: Aug 22, 2018 Hematologic/Lymphatic: Reports: anemia Allergies: Coded Allergies: LORAZEPAM (Verified Allergy, Unknown, 05/21/18) PENICILLINS (Verified Allergy, Unknown, 05/21/18) All Systems: reviewed and negative except above Subjective HD for today. Hgb remains low at 7.2 Objective Last 24 Hour Vital Signs Date Time Temp Pulse Resp B/P (MAP) Pulse Ox O2 Delivery O2 Flow Rate FiO2 08/22/18 12:00 96.4 72 20 109/62 (78) 100 96.4 08/22/18 08:00 96.4 71 18 107/61 (76) 100 96.4 08/22/18 08:00 67 08/22/18 08:00 Nasal Cannula 2.0 08/22/18 07:00 96.4 71 18 107/61 (76) 100 96.4 08/22/18 06:00 97.7 70 24 130/70 (90) 100 97.7 08/22/18 05:00 74 16 102/52 (69) 100 08/22/18 04:00 Nasal Cannula 2.0 08/22/18 04:00 97.6 71 14 104/56 (72) 100 97.6 08/22/18 04:00 58 08/22/18 03:00 97.6 67 12 102/56 (71) 100 97.6 08/22/18 01:00 68 12 103/51 (68) 100 08/22/18 00:00 Nasal Cannula 2.0 08/22/18 00:00 69 08/22/18 00:00 68 14 106/50 (68) 100 08/21/18 23:00 97.6 69 13 104/50 (68) 100 97.6 08/21/18 22:00 69 12 106/51 (69) 100 08/21/18 21:00 77 12 103/46 (65) 100 08/21/18 20:00 78 08/21/18 20:00 77 12 91/45 (60) 100 08/21/18 20:00 Nasal Cannula 2.0 08/21/18 19:15 100 Nasal Cannula 2.0 28 08/21/18 19:15 Nasal Cannula 2.0 28 08/21/18 19:00 97.6 72 22 104/45 (64) 100 97.6 08/21/18 18:00 72 21 103/53 (70) 100 08/21/18 17:00 74 21 103/53 (70) 100 08/21/18 16:00 75 08/21/18 16:00 97.0 72 22 103/46 (65) 100 97.0 08/21/18 16:00 Nasal Cannula 2.0 08/21/18 15:19 Nasal Cannula 2.0 08/21/18 15:00 75 25 100/46 (64) 100 08/21/18 14:00 66 18 140/67 (91) 96 08/21/18 13:42 Nasal Cannula 300.0 Intake and Output 08/21/18 08/22/18 19:00 07:00 Intake Total 55 ml 0 ml Output Total 1060 ml 60 ml Balance -1005 ml -60 ml Intake Oral 0 ml 0 ml IV Total 55 ml Output Urine Total 60 ml 60 ml Hemodialysis UF 1000 ml Laboratory Tests 08/22/18 04:00: White Blood Count 7.6, Red Blood Count 2.19L, Hemoglobin 7.2L, Hematocrit 21.7L , Mean Corpuscular Volume 99, Mean Corpuscular Hemoglobin 32.8H, Mean Corpuscular Hemoglobin Concent 33.1, Red Cell Distribution Width 18.2H, Platelet Count 24L, Mean Platelet Volume 11.2H, Neutrophils (%) (Auto) , Lymphocytes (%) (Auto) , Monocytes (%) (Auto) , Eosinophils (%) (Auto) , Basophils (%) (Auto) , Differential Total Cells Counted 100, Neutrophils % ( Manual) 69, Lymphocytes % (Manual) 22, Monocytes % (Manual) 8, Eosinophils % ( Manual) 1, Basophils % (Manual) 0, Band Neutrophils 0, Platelet Estimate DecreasedL, Platelet Morphology Normal, Hypochromasia 1+, Anisocytosis 2+, Target Cells 1+, Acanthocytes 1+, Schistocytes 1+, Prothrombin Time 16.7H, Prothromb Time International Ratio 1.6H, Activated Partial Thromboplast Time 40H , Sodium Level 140, Potassium Level 4.0, Chloride Level 105, Carbon Dioxide Level 19L, Anion Gap 16H, Blood Urea Nitrogen 56H, Creatinine 5.8H, Estimat Glomerular Filtration Rate 8.2, Glucose Level 107H, Lactic Acid Level 5.20H, Calcium Level 7.3L, Phosphorus Level 7.5H, Magnesium Level 1.8, Total Bilirubin 3.0H, Direct Bilirubin 2.1H, Aspartate Amino Transf (AST/SGOT) 87H, Alanine Aminotransferase (ALT/SGPT) 41, Alkaline Phosphatase 114, Total Protein 6.5, Albumin 1.8L, Globulin 4.7, Albumin/Globulin Ratio 0.4L 08/22/18 10:05: Lactic Acid Level 4.70H 08/22/18 12:55: Lactic Acid Level [Pending], Ammonia [Pending] Height (Feet): 5 Height (Inches): 3.00 Weight (Pounds): 304 General Appearance: no apparent distress EENT: PERRL/EOMI Neck: normal alignment Cardiovascular: normal peripheral pulses Respiratory/Chest: no respiratory distress Abdomen: soft Michael Hernandez MD Aug 22, 2018 13:08
--- NOTE | 2018-08-22 13:29 | General Progress Note ---
Assessment/Plan Problem List: (1) Edema ICD Codes: R60.9 - Edema, unspecified SNOMED: 709053323, 179432703 (2) Anemia ICD Codes: D64.9 - Anemia, unspecified SNOMED: 276534151 (3) Alcoholic cirrhosis ICD Codes: K70.30 - Alcoholic cirrhosis of liver without ascites SNOMED: 602599758 (4) Esophageal varices ICD Codes: I85.00 - Esophageal varices without bleeding SNOMED: 65202611 (5) Leukocytosis ICD Codes: D72.829 - Elevated white blood cell count, unspecified SNOMED: 602241142, 908182474 (6) GI bleed ICD Codes: K92.2 - Gastrointestinal hemorrhage, unspecified SNOMED: 03500942 (7) LENI (acute kidney injury) ICD Codes: N17.9 - Acute kidney failure, unspecified SNOMED: 39433127 (8) Sepsis ICD Codes: A41.9 - Sepsis, unspecified organism SNOMED: 18264395 Status: unchanged Assessment/Plan abx oe pulm tx transfuse prn gi heme f/u dialysis prn cbc bmp am Subjective Constitutional: Reports: weakness Allergies: Coded Allergies: LORAZEPAM (Verified Allergy, Unknown, 05/21/18) PENICILLINS (Verified Allergy, Unknown, 05/21/18) All Systems: reviewed and negative except above Subjective 02nc sleepy Objective Last 24 Hour Vital Signs Date Time Temp Pulse Resp B/P (MAP) Pulse Ox O2 Delivery O2 Flow Rate FiO2 08/22/18 12:00 96.4 72 20 109/62 (78) 100 96.4 08/22/18 12:00 Nasal Cannula 2.0 08/22/18 08:00 96.4 71 18 107/61 (76) 100 96.4 08/22/18 08:00 67 08/22/18 08:00 Nasal Cannula 2.0 08/22/18 07:00 96.4 71 18 107/61 (76) 100 96.4 08/22/18 06:00 97.7 70 24 130/70 (90) 100 97.7 08/22/18 05:00 74 16 102/52 (69) 100 08/22/18 04:00 Nasal Cannula 2.0 08/22/18 04:00 97.6 71 14 104/56 (72) 100 97.6 08/22/18 04:00 58 08/22/18 03:00 97.6 67 12 102/56 (71) 100 97.6 08/22/18 01:00 68 12 103/51 (68) 100 08/22/18 00:00 Nasal Cannula 2.0 08/22/18 00:00 69 08/22/18 00:00 68 14 106/50 (68) 100 08/21/18 23:00 97.6 69 13 104/50 (68) 100 97.6 08/21/18 22:00 69 12 106/51 (69) 100 08/21/18 21:00 77 12 103/46 (65) 100 08/21/18 20:00 78 08/21/18 20:00 77 12 91/45 (60) 100 08/21/18 20:00 Nasal Cannula 2.0 08/21/18 19:15 100 Nasal Cannula 2.0 28 08/21/18 19:15 Nasal Cannula 2.0 28 08/21/18 19:00 97.6 72 22 104/45 (64) 100 97.6 08/21/18 18:00 72 21 103/53 (70) 100 08/21/18 17:00 74 21 103/53 (70) 100 08/21/18 16:00 75 08/21/18 16:00 97.0 72 22 103/46 (65) 100 97.0 08/21/18 16:00 Nasal Cannula 2.0 08/21/18 15:19 Nasal Cannula 2.0 08/21/18 15:00 75 25 100/46 (64) 100 08/21/18 14:00 66 18 140/67 (91) 96 08/21/18 13:42 Nasal Cannula 300.0 Intake and Output 08/21/18 08/22/18 19:00 07:00 Intake Total 55 ml 0 ml Output Total 1060 ml 60 ml Balance -1005 ml -60 ml Intake Oral 0 ml 0 ml IV Total 55 ml Output Urine Total 60 ml 60 ml Hemodialysis UF 1000 ml Laboratory Tests 08/22/18 04:00: White Blood Count 7.6, Red Blood Count 2.19L, Hemoglobin 7.2L, Hematocrit 21.7L , Mean Corpuscular Volume 99, Mean Corpuscular Hemoglobin 32.8H, Mean Corpuscular Hemoglobin Concent 33.1, Red Cell Distribution Width 18.2H, Platelet Count 24L, Mean Platelet Volume 11.2H, Neutrophils (%) (Auto) , Lymphocytes (%) (Auto) , Monocytes (%) (Auto) , Eosinophils (%) (Auto) , Basophils (%) (Auto) , Differential Total Cells Counted 100, Neutrophils % ( Manual) 69, Lymphocytes % (Manual) 22, Monocytes % (Manual) 8, Eosinophils % ( Manual) 1, Basophils % (Manual) 0, Band Neutrophils 0, Platelet Estimate DecreasedL, Platelet Morphology Normal, Hypochromasia 1+, Anisocytosis 2+, Target Cells 1+, Acanthocytes 1+, Schistocytes 1+, Prothrombin Time 16.7H, Prothromb Time International Ratio 1.6H, Activated Partial Thromboplast Time 40H , Sodium Level 140, Potassium Level 4.0, Chloride Level 105, Carbon Dioxide Level 19L, Anion Gap 16H, Blood Urea Nitrogen 56H, Creatinine 5.8H, Estimat Glomerular Filtration Rate 8.2, Glucose Level 107H, Lactic Acid Level 5.20H, Calcium Level 7.3L, Phosphorus Level 7.5H, Magnesium Level 1.8, Total Bilirubin 3.0H, Direct Bilirubin 2.1H, Aspartate Amino Transf (AST/SGOT) 87H, Alanine Aminotransferase (ALT/SGPT) 41, Alkaline Phosphatase 114, Total Protein 6.5, Albumin 1.8L, Globulin 4.7, Albumin/Globulin Ratio 0.4L 08/22/18 10:05: Lactic Acid Level 4.70H 08/22/18 12:55: Lactic Acid Level [Pending], Ammonia 150H Height (Feet): 5 Height (Inches): 3.00 Weight (Pounds): 304 General Appearance: lethargic EENT: normal ENT inspection Neck: normal alignment Cardiovascular: normal peripheral pulses, normal rate, regular rhythm Respiratory/Chest: chest wall non-tender, decreased breath sounds Abdomen: normal bowel sounds, non tender, soft Extremities: normal inspection Edema: 1+ Arm (L), 1+ Arm (R), 1+ Leg (L), 1+ Leg (R), 1+ Pedal (L), 1+ Pedal ( R), 1+ Generalized Edema: trace edema Neurologic: motor weakness Skin: normal pigmentation, warm/dry Chauncey Fuentes DO Aug 22, 2018 13:29
[2018-08-22] MEDS: Ertapenem 0.5 GM in NS 55 ML IVPB SCH (14:00)
[2018-08-22] MEDS: Lactulose 20gm/30ml UDC RECTAL SCH ×2 (14:11→18:18)
[2018-08-22] MEDS ORDERED: Tubing IV Secondary IV ONE (15:12)
[2018-08-22] MEDS ORDERED: NS 275ml ONE (15:12)
[2018-08-22] MEDS: Dyna-Hex 2% Top Sol 2oz TOPIC SCH (20:13)
[2018-08-22] MEDS: Morphine Sulfate 2mg/ml Inj IVP PRN (20:14)
[2018-08-23] VITALS: BP 134/70
[2018-08-23] MEDS: Lactulose 20gm/30ml UDC ORAL SCH ×5 (00:20→23:57)
[2018-08-23] MEDS: Morphine Sulfate 2mg/ml Inj IVP PRN ×2 (01:44→20:11)
[2018-08-23 04:00] VITALS: BP 133/72
[2018-08-23] MEDS: Pantoprazole Inj IVP SCH ×2 (05:46→17:34)
--- NOTE | 2018-08-23 07:51 | General Progress Note ---
Assessment/Plan Assessment/Plan # Thrombocytopenia. Baseline appears to be 50-80k. Is most likely related to underlying liver disease with e/o portal htn. Hx of ETOH use. She does have evidence of hepatic cirrhosis, with surface nodularity an increased echogenicity. Evidence of portal hypertension, with ascites, splenomegaly, and flow reversal within the main and right portal vein. Evidence of prior cholecystectomy. Negative for dilated ducts. Prior CT and Us have been reviewed , hepatitis and hiv are both negative. --> Peripheral smear ordered and is negative for blasts, has been reviewed --> Abx and other meds have been reviewed. --> hold off heparin, asa, or plavix --> Transfuse plts if plt count >10k or if 20k and with fever --> Agree with lactulose and potential rifaxamin for elev ammonia # Anemia due to gastrointestinal bleed. Hemoglobin on admission 5-8 range, likely bleed related, ferritin is 1125 --> Gastroenterology to evaluate and manage. --> on octreotide gtt --> currently stabilized # Coagulopathy is likely related to underlying liver disease, liver us has been ordered --> no evidence of bleeding hold off unless bleeding is noted --> VIt K or ffp before procedure # Anemia of chronic disease, multifactorial --> Previous w/u has been reviewed. --> Will trend CBC daily --> Hgb goal above 7 --> Blood tx: 08/17,08/18, 08/19 # Acute kidney injury secondary to intravascular volume depletion along with ischemic acute tubular necrosis from hypotension. --> Nephro following. Appreciate recs. # Hyperkalemia secondary to renal insufficiency and gastrointestinal bleed. --> The patient was given Kayexalate 60 g already. 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 Subjective Constitutional: Denies: no symptoms, chills, diaphoresis, fever, malaise, weakness, other HEENT: Denies: no symptoms, eye pain, blurred vision, tearing, double vision, ear pain, ear discharge, nose pain, nose congestion, throat pain, throat swelling, mouth pain, mouth swelling, other Cardiovascular: Denies: no symptoms, chest pain, edema, irregular heart rate, lightheadedness, palpitations, syncope, other Respiratory: Denies: no symptoms, cough, orthopnea, shortness of breath, SOB with excertion, SOB at rest, sputum, stridor, wheezing, other Allergies: Coded Allergies: LORAZEPAM (Verified Allergy, Unknown, 05/21/18) PENICILLINS (Verified Allergy, Unknown, 05/21/18) Subjective Got hd yesterday, remains lethargic. Hgb remains low, still septic. Objective Last 24 Hour Vital Signs Date Time Temp Pulse Resp B/P (MAP) Pulse Ox O2 Delivery O2 Flow Rate FiO2 08/23/18 07:13 Nasal Cannula 2.0 28 08/23/18 07:13 100 Nasal Cannula 2.0 28 08/23/18 04:00 Nasal Cannula 2.0 08/23/18 04:00 97.0 69 20 133/72 (92) 100 97.0 08/23/18 03:32 68 08/23/18 00:00 97.0 77 24 134/70 (91) 100 97.0 08/23/18 00:00 Nasal Cannula 2.0 08/22/18 23:53 70 08/22/18 20:09 75 08/22/18 20:00 Nasal Cannula 2.0 08/22/18 20:00 97.4 82 24 121/62 (81) 100 97.4 08/22/18 16:00 Nasal Cannula 2.0 08/22/18 16:00 97.5 78 20 103/48 (66) 100 97.5 08/22/18 16:00 80 08/22/18 15:59 Nasal Cannula 2.0 08/22/18 13:55 Nasal Cannula 3.0 08/22/18 12:00 96.4 72 20 109/62 (78) 100 96.4 08/22/18 12:00 71 08/22/18 12:00 Nasal Cannula 2.0 08/22/18 08:00 96.4 71 18 107/61 (76) 100 96.4 08/22/18 08:00 67 08/22/18 08:00 Nasal Cannula 2.0 Intake and Output 08/22/18 08/23/18 19:00 07:00 Output Total 1950 ml 250 ml Balance -1950 ml -250 ml Output Urine Total 100 ml 200 ml Stool Total 150 ml 50 ml Hemodialysis UF 1700 ml Laboratory Tests 08/22/18 10:05: Lactic Acid Level 4.70H 08/22/18 12:55: Lactic Acid Level 4.50H, Ammonia 150H Height (Feet): 5 Height (Inches): 3.00 Weight (Pounds): 312 General Appearance: no apparent distress EENT: TMs normal Neck: supple Cardiovascular: normal rate Respiratory/Chest: normal breath sounds Abdomen: non tender Extremities: non-tender Edema: no edema noted Leg (L), no edema noted Leg (R) Edema: mild edema Neurologic: alert Skin: warm/dry Michael Hernandez MD Aug 23, 2018 07:51
[2018-08-23 08:00] VITALS: BP 112/72
--- NOTE | 2018-08-23 08:03 | Nephrology Progress Note ---
Assessment/Plan Assessment/Plan 1. LENI- multifact ATN ( hypotension/intravasc vol dep/?hepatorenal/Anemia) - AM labs pending - Hold HD today and plan for session on Sunday 2. Hyperk+- due to RI and metabolic acidosis - AM labs pending 3. Hepatic Failure - alcohol. 4. Met Acidosis- AG/Lactic - HD on high bicarb level. AM labs pending 5. GI Bleed- octreotide, mgmt per GI - lactulose Subjective Date patient seen: Aug 23, 2018 Time patient seen: 08:01 ROS Limited/Unobtainable: Yes Allergies: Coded Allergies: LORAZEPAM (Verified Allergy, Unknown, 05/21/18) PENICILLINS (Verified Allergy, Unknown, 05/21/18) Subjective Patient confused and lethargic but not agitated Objective Last 24 Hour Vital Signs Date Time Temp Pulse Resp B/P (MAP) Pulse Ox O2 Delivery O2 Flow Rate FiO2 08/23/18 07:13 Nasal Cannula 2.0 28 08/23/18 07:13 100 Nasal Cannula 2.0 28 08/23/18 04:00 Nasal Cannula 2.0 08/23/18 04:00 97.0 69 20 133/72 (92) 100 97.0 08/23/18 03:32 68 08/23/18 00:00 97.0 77 24 134/70 (91) 100 97.0 08/23/18 00:00 Nasal Cannula 2.0 08/22/18 23:53 70 08/22/18 20:09 75 08/22/18 20:00 Nasal Cannula 2.0 08/22/18 20:00 97.4 82 24 121/62 (81) 100 97.4 08/22/18 16:00 Nasal Cannula 2.0 08/22/18 16:00 97.5 78 20 103/48 (66) 100 97.5 08/22/18 16:00 80 08/22/18 15:59 Nasal Cannula 2.0 08/22/18 13:55 Nasal Cannula 3.0 08/22/18 12:00 96.4 72 20 109/62 (78) 100 96.4 08/22/18 12:00 71 08/22/18 12:00 Nasal Cannula 2.0 Intake and Output 08/22/18 08/23/18 19:00 07:00 Output Total 1950 ml 250 ml Balance -1950 ml -250 ml Output Urine Total 100 ml 200 ml Stool Total 150 ml 50 ml Hemodialysis UF 1700 ml Laboratory Tests 08/22/18 10:05: Lactic Acid Level 4.70H 08/22/18 12:55: Lactic Acid Level 4.50H, Ammonia 150H Height (Feet): 5 Height (Inches): 3.00 Weight (Pounds): 312 General Appearance: lethargic, confused EENT: normal ENT inspection Neck: normal alignment, supple Cardiovascular: normal rate, regular rhythm Respiratory/Chest: rhonchi - bilaterally Abdomen: distended, guarding Edema: 4+ Arm (L), 4+ Arm (R), 4+ Leg (L), 4+ Leg (R), 4+ Pedal (L), 4+ Pedal ( R), 4+ Generalized Amos Pinon MD Aug 23, 2018 08:03
[2018-08-23 08:48] LABS: HEMATOCRIT 21.3 % (37.0-47.0); MEAN CORPUSCULAR VOLUME 99 FL (80-99); PLATELET COUNT 17 K/UL (150-450); RED BLOOD COUNT 2.15 M/UL (4.20-5.40); RED CELL DISTRIBUTION WIDTH 17.9 % (11.6-14.8); WHITE BLOOD COUNT 6.2 K/UL (4.8-10.8)
[2018-08-23 08:51] LABS: HEMOGLOBIN 6.7 G/DL (12.0-16.0)
[2018-08-23 08:56] LABS: INR 1.6 (0.9-1.1)
[2018-08-23 09:00] LABS: ALANINE AMINOTRANSFERASE 40 U/L (12-78); ALBUMIN 1.6 G/DL (3.4-5.0); ALBUMIN/GLOBULIN RATIO 0.4 (1.0-2.7); ALKALINE PHOSPHATASE 112 U/L (46-116); ANION GAP 11 mmol/L (5-15); ASPARTATE AMINO TRANSFERASE 83 U/L (15-37); BILIRUBIN,TOTAL 2.7 MG/DL (0.2-1.0); BLOOD UREA NITROGEN 48 mg/dL (7-18); CALCIUM 7.1 MG/DL (8.5-10.1); CARBON DIOXIDE 23 MMOL/L (21-32); CHLORIDE 106 MMOL/L (98-107); CREATININE 4.8 MG/DL (0.55-1.30); POTASSIUM 3.6 MMOL/L (3.5-5.1); SODIUM 140 MMOL/L (136-145)
[2018-08-23 09:01] LABS: BILIRUBIN,DIRECT 1.9 MG/DL (0.0-0.3)
[2018-08-23] MEDS: Lactulose 20gm/30ml UDC RECTAL SCH ×3 (09:54→17:34)
--- NOTE | 2018-08-23 10:42 | Pulmonology Progress Note ---
Assessment/Plan Problems: (1) Acute encephalopathy (2) LENI (acute kidney injury) (3) ATN (acute tubular necrosis) (4) Coagulopathy (5) Esophageal varices (6) Alcoholic cirrhosis (7) End stage liver disease Assessment/Plan supportive care Still NPO, because of encephalopathy on Lactulose on abx check h/h, prbc and plt as per Hematology Subjective ROS Limited/Unobtainable: Yes Interval Events: somnolent Allergies: Coded Allergies: LORAZEPAM (Verified Allergy, Unknown, 05/21/18) PENICILLINS (Verified Allergy, Unknown, 05/21/18) Objective Last 24 Hour Vital Signs Date Time Temp Pulse Resp B/P (MAP) Pulse Ox O2 Delivery O2 Flow Rate FiO2 08/23/18 08:00 Nasal Cannula 2.0 08/23/18 08:00 97.0 74 18 112/72 (85) 100 97.0 08/23/18 08:00 70 08/23/18 07:13 Nasal Cannula 2.0 28 08/23/18 07:13 100 Nasal Cannula 2.0 28 08/23/18 04:00 Nasal Cannula 2.0 08/23/18 04:00 97.0 69 20 133/72 (92) 100 97.0 08/23/18 03:32 68 08/23/18 00:00 97.0 77 24 134/70 (91) 100 97.0 08/23/18 00:00 Nasal Cannula 2.0 08/22/18 23:53 70 08/22/18 20:09 75 08/22/18 20:00 Nasal Cannula 2.0 08/22/18 20:00 97.4 82 24 121/62 (81) 100 97.4 08/22/18 16:00 Nasal Cannula 2.0 08/22/18 16:00 97.5 78 20 103/48 (66) 100 97.5 08/22/18 16:00 80 08/22/18 15:59 Nasal Cannula 2.0 08/22/18 13:55 Nasal Cannula 3.0 08/22/18 12:00 96.4 72 20 109/62 (78) 100 96.4 08/22/18 12:00 71 08/22/18 12:00 Nasal Cannula 2.0 Intake and Output 08/22/18 08/23/18 19:00 07:00 Output Total 1950 ml 250 ml Balance -1950 ml -250 ml Output Urine Total 100 ml 200 ml Stool Total 150 ml 50 ml Hemodialysis UF 1700 ml General Appearance: WD/WN HEENT: normocephalic Respiratory/Chest: chest wall non-tender, lungs clear Breasts: no masses Cardiovascular: normal peripheral pulses, normal rate Abdomen: normal bowel sounds, soft, non tender Extremities: no clubbing Skin: no rash Neurologic/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: 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 grossly normal Lymphatic: no neck adenopathy Laboratory Tests 08/22/18 12:55: Lactic Acid Level 4.50H, Ammonia 150H 08/23/18 08:25: White Blood Count 6.2, Red Blood Count 2.15L, Hemoglobin 6.7*L, Hematocrit 21.3L , Mean Corpuscular Volume 99, Mean Corpuscular Hemoglobin 31.3H, Mean Corpuscular Hemoglobin Concent 31.6L, Red Cell Distribution Width 17.9H, Platelet Count 17L, Mean Platelet Volume 10.6H, Neutrophils (%) (Auto) , Lymphocytes (%) (Auto) , Monocytes (%) (Auto) , Eosinophils (%) (Auto) , Basophils (%) (Auto) , Neutrophils % (Manual) [Pending], Lymphocytes % (Manual) [Pending], Platelet Estimate [Pending], Platelet Morphology [Pending], Prothrombin Time 16.8H, Prothromb Time International Ratio 1.6H, Activated Partial Thromboplast Time 43H, Sodium Level 140, Potassium Level 3.6, Chloride Level 106, Carbon Dioxide Level 23, Anion Gap 11, Blood Urea Nitrogen 48H, Creatinine 4.8H, Estimat Glomerular Filtration Rate 10.2, Glucose Level 111H, Calcium Level 7.1L, Phosphorus Level 6.0H, Magnesium Level 1.8, Total Bilirubin 2.7H, Direct Bilirubin 1.9H, Aspartate Amino Transf (AST/SGOT) 83H, Alanine Aminotransferase (ALT/SGPT) 40, Alkaline Phosphatase 112, Total Protein 5.9L, Albumin 1.6L, Globulin 4.3, Albumin/Globulin Ratio 0.4L, Heparin-PF4 Antibody Screen [Pending] 08/23/18 09:55: Lactic Acid Level [Pending] Current Medications Medications (Trade) Dose Ordered Sig/Abner Route PRN Reason Start Time Stop Time Status Last Admin Dose Admin Al Hydroxide/Mg Hydroxide (Mylanta II) 30 ml Q6H PRN ORAL dyspepsia 08/22/18 06:06 09/16/18 06:05 Chlorhexidine Gluconate (Sierra-Hex 2%) 1 applic DAILY@2000 TOPIC 08/22/18 20:00 09/18/18 19:59 08/22/18 20:13 Dextrose (Dextrose 50%) 25 ml Q30M PRN IV Hypoglycemia 08/22/18 06:30 09/16/18 16:20 Dextrose (Dextrose 50%) 50 ml Q30M PRN IV Hypoglycemia 08/22/18 06:30 09/16/18 16:20 Ertapenem 0.5 gm/ Sodium Chloride 55 ml @ 110 mls/hr Q24H IVPB 08/22/18 14:00 08/25/18 13:59 Lactulose (Cephulac) 30 gm EVERY 6 HOURS ORAL 08/22/18 12:00 09/16/18 11:59 08/23/18 05:46 Lactulose (Cephulac) 60 gm THREE TIMES A DAY RECTAL 08/22/18 13:00 09/21/18 12:59 08/23/18 09:54 Morphine Sulfate (Morphine Sulfate) 2 mg Q4H PRN IVP For Pain 08/22/18 06:08 08/24/18 06:07 08/23/18 01:44 Ondansetron HCl (Zofran) 4 mg Q6H PRN IVP Nausea & Vomiting 08/22/18 06:09 09/16/18 06:08 Pantoprazole (Protonix) 40 mg Q12H IVP 08/22/18 18:00 09/16/18 17:59 08/23/18 05:46 Polyethylene Glycol (Miralax) 17 gm HSPRN PRN ORAL Constipation 08/22/18 06:11 09/16/18 06:10 Jose Roberto Burleson MD Aug 23, 2018 10:42
[2018-08-23] MEDS ORDERED: Heparin 2000 units/Ns 1000ml INJ PRN (11:00)
[2018-08-23] MEDS ORDERED: Lidocaine 1% Plain 30 ml INJ PRN (11:00)
--- NOTE | 2018-08-23 11:04 | Infectious Diseases Prog Note ---
Assessment/Plan Assessment/Plan ASSESSMENT: The patient is a 38-year-old female with: 1. Probable sepsis, improving 2. Leukocytosis; SP -CXR: Pulmonary vascular congestion with increased interstitial markings , likely representing interstitial edema. This appears improved relative to the chest x-ray from 07/22/18 3. Urinary tract infection. u/a wbc 60-80, nit+, leuk large; ucx ESBL K. pna ( R zosyn, S ertapenem), Citrobacter freundi (R ancef, I Impienem, S ertapenem) 4. History of hepatitis panel and HIV serology negative. 5. GIB -s/p EGD 08/19: esophageal varices 6. Afebrile. 7. r/o bacteremia. -Bcx NTD 8. Acute renal insufficiency.; on HD -Renal US: unremarkable 9. Rule out probable spontaneous bacterial peritonitis. 10. Thrombocytopenia -. Alcoholic cirrhosis. -. Esophageal varices. PLAN: -Continue Ertapenem #5/ for ESBL UTI -08/19 SP cefepime and Flagyl #3 -. Monitor BMP. -. Monitor cultures (blood).. -. Nephrology to follow on renal insufficiency. -. Based on the patient's clinical course and labs, we will do further recommendation. Thank you, Dr. Chauncey Fuentes, for allowing me to see this patient. I will follow the patient with you during this hospitalization. Subjective Allergies: Coded Allergies: LORAZEPAM (Verified Allergy, Unknown, 05/21/18) PENICILLINS (Verified Allergy, Unknown, 05/21/18) Subjective afebrile no leukocytosis worsening thrombocytopenia Bcx NTD Objective Vital Signs Last 24 Hour Vital Signs Date Time Temp Pulse Resp B/P (MAP) Pulse Ox O2 Delivery O2 Flow Rate FiO2 08/23/18 08:00 Nasal Cannula 2.0 08/23/18 08:00 97.0 74 18 112/72 (85) 100 97.0 08/23/18 08:00 70 08/23/18 07:13 Nasal Cannula 2.0 28 08/23/18 07:13 100 Nasal Cannula 2.0 28 08/23/18 04:00 Nasal Cannula 2.0 08/23/18 04:00 97.0 69 20 133/72 (92) 100 97.0 08/23/18 03:32 68 08/23/18 00:00 97.0 77 24 134/70 (91) 100 97.0 08/23/18 00:00 Nasal Cannula 2.0 08/22/18 23:53 70 08/22/18 20:09 75 08/22/18 20:00 Nasal Cannula 2.0 08/22/18 20:00 97.4 82 24 121/62 (81) 100 97.4 08/22/18 16:00 Nasal Cannula 2.0 08/22/18 16:00 97.5 78 20 103/48 (66) 100 97.5 08/22/18 16:00 80 08/22/18 15:59 Nasal Cannula 2.0 08/22/18 13:55 Nasal Cannula 3.0 08/22/18 12:00 96.4 72 20 109/62 (78) 100 96.4 08/22/18 12:00 71 08/22/18 12:00 Nasal Cannula 2.0 Height (Feet): 5 Height (Inches): 3.00 Weight (Pounds): 312 Objective HEENT: No pale conjunctivae. CHEST: Clear. HEART: S1 and S2. ABDOMEN: Obese and nontender. EXTREMITIES: No cyanosis at this time. There is no edema. NEUROLOGIC: Awake, but lethargic. Laboratory Tests Test 08/22/18 12:55 08/23/18 08:25 08/23/18 09:55 Lactic Acid Level 4.50 mmol/L (0.66-2.22) H 2.40 mmol/L (0.4-2.0) H Ammonia 150 umol/L (11-32) H White Blood Count 6.2 K/UL (4.8-10.8) Red Blood Count 2.15 M/UL (4.20-5.40) L Hemoglobin 6.7 G/DL (12.0-16.0) *L Hematocrit 21.3 % (37.0-47.0) L Mean Corpuscular Volume 99 FL (80-99) Mean Corpuscular Hemoglobin 31.3 PG (27.0-31.0) H Mean Corpuscular Hemoglobin Concent 31.6 G/DL (32.0-36.0) L Red Cell Distribution Width 17.9 % (11.6-14.8) H Platelet Count 17 K/UL (150-450) L Mean Platelet Volume 10.6 FL (6.5-10.1) H Neutrophils (%) (Auto) % (45.0-75.0) Lymphocytes (%) (Auto) % (20.0-45.0) Monocytes (%) (Auto) % (1.0-10.0) Eosinophils (%) (Auto) % (0.0-3.0) Basophils (%) (Auto) % (0.0-2.0) Neutrophils % (Manual) Pending Lymphocytes % (Manual) Pending Platelet Estimate Pending Platelet Morphology Pending Prothrombin Time 16.8 SEC (9.30-11.50) H Prothromb Time International Ratio 1.6 (0.9-1.1) H Activated Partial Thromboplast Time 43 SEC (23-33) H Sodium Level 140 MMOL/L (136-145) Potassium Level 3.6 MMOL/L (3.5-5.1) Chloride Level 106 MMOL/L (98-107) Carbon Dioxide Level 23 MMOL/L (21-32) Anion Gap 11 mmol/L (5-15) Blood Urea Nitrogen 48 mg/dL (7-18) H Creatinine 4.8 MG/DL (0.55-1.30) H Estimat Glomerular Filtration Rate 10.2 mL/min (>60) Glucose Level 111 MG/DL (74-106) H Calcium Level 7.1 MG/DL (8.5-10.1) L Phosphorus Level 6.0 MG/DL (2.5-4.9) H Magnesium Level 1.8 MG/DL (1.8-2.4) Total Bilirubin 2.7 MG/DL (0.2-1.0) H Direct Bilirubin 1.9 MG/DL (0.0-0.3) H Aspartate Amino Transf (AST/SGOT) 83 U/L (15-37) H Alanine Aminotransferase (ALT/SGPT) 40 U/L (12-78) Alkaline Phosphatase 112 U/L (46-116) Total Protein 5.9 G/DL (6.4-8.2) L Albumin 1.6 G/DL (3.4-5.0) L Globulin 4.3 g/dL Albumin/Globulin Ratio 0.4 (1.0-2.7) L Heparin-PF4 Antibody Screen Pending Current Medications Medications (Trade) Dose Ordered Sig/Abner Route PRN Reason Start Time Stop Time Status Last Admin Dose Admin Al Hydroxide/Mg Hydroxide (Mylanta II) 30 ml Q6H PRN ORAL dyspepsia 08/22/18 06:06 09/16/18 06:05 Chlorhexidine Gluconate (Sierra-Hex 2%) 1 applic DAILY@2000 TOPIC 08/22/18 20:00 09/18/18 19:59 08/22/18 20:13 Dextrose (Dextrose 50%) 25 ml Q30M PRN IV Hypoglycemia 08/22/18 06:30 09/16/18 16:20 Dextrose (Dextrose 50%) 50 ml Q30M PRN IV Hypoglycemia 08/22/18 06:30 09/16/18 16:20 Ertapenem 0.5 gm/ Sodium Chloride 55 ml @ 110 mls/hr Q24H IVPB 08/22/18 14:00 08/25/18 13:59 Lactulose (Cephulac) 30 gm EVERY 6 HOURS ORAL 08/22/18 12:00 09/16/18 11:59 08/23/18 05:46 Lactulose (Cephulac) 60 gm THREE TIMES A DAY RECTAL 08/22/18 13:00 09/21/18 12:59 08/23/18 09:54 Morphine Sulfate (Morphine Sulfate) 2 mg Q4H PRN IVP For Pain 08/22/18 06:08 08/24/18 06:07 08/23/18 01:44 Ondansetron HCl (Zofran) 4 mg Q6H PRN IVP Nausea & Vomiting 08/22/18 06:09 09/16/18 06:08 Pantoprazole (Protonix) 40 mg Q12H IVP 08/22/18 18:00 09/16/18 17:59 08/23/18 05:46 Polyethylene Glycol (Miralax) 17 gm HSPRN PRN ORAL Constipation 08/22/18 06:11 09/16/18 06:10 Stacy Perdomo M.D. Aug 23, 2018 11:04
--- NOTE | 2018-08-23 11:25 | General Progress Note ---
Assessment/Plan Problem List: (1) Edema ICD Codes: R60.9 - Edema, unspecified SNOMED: 750703779, 110733892 (2) Anemia ICD Codes: D64.9 - Anemia, unspecified SNOMED: 371805581 (3) Alcoholic cirrhosis ICD Codes: K70.30 - Alcoholic cirrhosis of liver without ascites SNOMED: 660891627 (4) Esophageal varices ICD Codes: I85.00 - Esophageal varices without bleeding SNOMED: 63121305 (5) Leukocytosis ICD Codes: D72.829 - Elevated white blood cell count, unspecified SNOMED: 693353141, 970810845 (6) GI bleed ICD Codes: K92.2 - Gastrointestinal hemorrhage, unspecified SNOMED: 55312300 (7) LENI (acute kidney injury) ICD Codes: N17.9 - Acute kidney failure, unspecified SNOMED: 65542099 (8) Sepsis ICD Codes: A41.9 - Sepsis, unspecified organism SNOMED: 57451446 Status: unchanged Assessment/Plan abx oe pulm tx transfuse prn gi heme f/u dialysis prn cbc bmp am promise ltach if clear Subjective Constitutional: Reports: weakness Allergies: Coded Allergies: LORAZEPAM (Verified Allergy, Unknown, 05/21/18) PENICILLINS (Verified Allergy, Unknown, 05/21/18) All Systems: reviewed and negative except above Subjective 02nc sleepy Objective Last 24 Hour Vital Signs Date Time Temp Pulse Resp B/P (MAP) Pulse Ox O2 Delivery O2 Flow Rate FiO2 08/23/18 08:00 Nasal Cannula 2.0 08/23/18 08:00 97.0 74 18 112/72 (85) 100 97.0 08/23/18 08:00 70 08/23/18 07:13 Nasal Cannula 2.0 28 08/23/18 07:13 100 Nasal Cannula 2.0 28 08/23/18 04:00 Nasal Cannula 2.0 08/23/18 04:00 97.0 69 20 133/72 (92) 100 97.0 08/23/18 03:32 68 08/23/18 00:00 97.0 77 24 134/70 (91) 100 97.0 08/23/18 00:00 Nasal Cannula 2.0 08/22/18 23:53 70 08/22/18 20:09 75 08/22/18 20:00 Nasal Cannula 2.0 08/22/18 20:00 97.4 82 24 121/62 (81) 100 97.4 08/22/18 16:00 Nasal Cannula 2.0 08/22/18 16:00 97.5 78 20 103/48 (66) 100 97.5 08/22/18 16:00 80 08/22/18 15:59 Nasal Cannula 2.0 08/22/18 13:55 Nasal Cannula 3.0 08/22/18 12:00 96.4 72 20 109/62 (78) 100 96.4 08/22/18 12:00 71 08/22/18 12:00 Nasal Cannula 2.0 Intake and Output 08/22/18 08/23/18 19:00 07:00 Output Total 1950 ml 250 ml Balance -1950 ml -250 ml Output Urine Total 100 ml 200 ml Stool Total 150 ml 50 ml Hemodialysis UF 1700 ml Laboratory Tests 08/22/18 12:55: Lactic Acid Level 4.50H, Ammonia 150H 08/23/18 08:25: White Blood Count 6.2, Red Blood Count 2.15L, Hemoglobin 6.7*L, Hematocrit 21.3L , Mean Corpuscular Volume 99, Mean Corpuscular Hemoglobin 31.3H, Mean Corpuscular Hemoglobin Concent 31.6L, Red Cell Distribution Width 17.9H, Platelet Count 17L, Mean Platelet Volume 10.6H, Neutrophils (%) (Auto) , Lymphocytes (%) (Auto) , Monocytes (%) (Auto) , Eosinophils (%) (Auto) , Basophils (%) (Auto) , Neutrophils % (Manual) [Pending], Lymphocytes % (Manual) [Pending], Platelet Estimate [Pending], Platelet Morphology [Pending], Prothrombin Time 16.8H, Prothromb Time International Ratio 1.6H, Activated Partial Thromboplast Time 43H, Sodium Level 140, Potassium Level 3.6, Chloride Level 106, Carbon Dioxide Level 23, Anion Gap 11, Blood Urea Nitrogen 48H, Creatinine 4.8H, Estimat Glomerular Filtration Rate 10.2, Glucose Level 111H, Calcium Level 7.1L, Phosphorus Level 6.0H, Magnesium Level 1.8, Total Bilirubin 2.7H, Direct Bilirubin 1.9H, Aspartate Amino Transf (AST/SGOT) 83H, Alanine Aminotransferase (ALT/SGPT) 40, Alkaline Phosphatase 112, Total Protein 5.9L, Albumin 1.6L, Globulin 4.3, Albumin/Globulin Ratio 0.4L, Heparin-PF4 Antibody Screen [Pending] 08/23/18 09:55: Lactic Acid Level 2.40H Height (Feet): 5 Height (Inches): 3.00 Weight (Pounds): 312 General Appearance: lethargic EENT: normal ENT inspection Neck: normal alignment Cardiovascular: normal peripheral pulses, normal rate, regular rhythm Respiratory/Chest: chest wall non-tender, lungs clear, normal breath sounds Abdomen: normal bowel sounds, non tender, soft Extremities: normal inspection Edema: 1+ Arm (L), 1+ Arm (R), 1+ Leg (L), 1+ Leg (R), 1+ Pedal (L), 1+ Pedal ( R), 1+ Generalized Edema: trace edema Neurologic: motor weakness Skin: normal pigmentation, warm/dry Chauncey Fuentes DO Aug 23, 2018 11:25
--- NOTE | 2018-08-23 11:30 | GI Progress Note ---
Assessment/Plan Problems: (1) Ascites ICD Codes: R18.8 - Other ascites SNOMED: 478230385 (2) Alcoholic cirrhosis ICD Codes: K70.30 - Alcoholic cirrhosis of liver without ascites SNOMED: 885766684 (3) Esophageal varices ICD Codes: I85.00 - Esophageal varices without bleeding SNOMED: 30112378 (4) Anemia ICD Codes: D64.9 - Anemia, unspecified SNOMED: 717582872 (5) Chronic renal insufficiency ICD Codes: N18.9 - Chronic kidney disease, unspecified SNOMED: 815902334 (6) Coagulopathy ICD Codes: D68.9 - Coagulation defect, unspecified SNOMED: 53649224 (7) Hemorrhagic shock ICD Codes: R57.8 - Other shock SNOMED: 158786 (8) GI bleed ICD Codes: K92.2 - Gastrointestinal hemorrhage, unspecified SNOMED: 30055634 Status: not improved, unchanged Status Narrative Discussed with Dr. Rodriguez. Assessment/Plan s/p EGD >> Esophageal varices, status post banding x7. RECOMMENDATIONS: do not insert NGT or dobhoff, may cause rebleed CLD, adv as tolerated Lactulose OR until more alert, then PO will need paracentesis when more stable IVFs abx prn transfusions fu labs The patient was seen and examined at bedside and all new and available data was reviewed in the patients chart. I agree with the above findings, impression and plan. (Patient seen earlier today. Signature stamp does not reflect patient encounter time.). - Christopher Rodriguez MD Subjective Subjective limited Objective Last 24 Hour Vital Signs Date Time Temp Pulse Resp B/P (MAP) Pulse Ox O2 Delivery O2 Flow Rate FiO2 08/23/18 08:00 Nasal Cannula 2.0 08/23/18 08:00 97.0 74 18 112/72 (85) 100 97.0 08/23/18 08:00 70 08/23/18 07:13 Nasal Cannula 2.0 28 08/23/18 07:13 100 Nasal Cannula 2.0 28 08/23/18 04:00 Nasal Cannula 2.0 08/23/18 04:00 97.0 69 20 133/72 (92) 100 97.0 08/23/18 03:32 68 08/23/18 00:00 97.0 77 24 134/70 (91) 100 97.0 08/23/18 00:00 Nasal Cannula 2.0 08/22/18 23:53 70 08/22/18 20:09 75 08/22/18 20:00 Nasal Cannula 2.0 08/22/18 20:00 97.4 82 24 121/62 (81) 100 97.4 08/22/18 16:00 Nasal Cannula 2.0 08/22/18 16:00 97.5 78 20 103/48 (66) 100 97.5 08/22/18 16:00 80 08/22/18 15:59 Nasal Cannula 2.0 08/22/18 13:55 Nasal Cannula 3.0 08/22/18 12:00 96.4 72 20 109/62 (78) 100 96.4 08/22/18 12:00 71 08/22/18 12:00 Nasal Cannula 2.0 Intake and Output 08/22/18 08/23/18 19:00 07:00 Output Total 1950 ml 250 ml Balance -1950 ml -250 ml Output Urine Total 100 ml 200 ml Stool Total 150 ml 50 ml Hemodialysis UF 1700 ml Laboratory Tests Test 08/22/18 12:55 08/23/18 08:25 08/23/18 09:55 Lactic Acid Level 4.50 mmol/L (0.66-2.22) H 2.40 mmol/L (0.4-2.0) H Ammonia 150 umol/L (11-32) H White Blood Count 6.2 K/UL (4.8-10.8) Red Blood Count 2.15 M/UL (4.20-5.40) L Hemoglobin 6.7 G/DL (12.0-16.0) *L Hematocrit 21.3 % (37.0-47.0) L Mean Corpuscular Volume 99 FL (80-99) Mean Corpuscular Hemoglobin 31.3 PG (27.0-31.0) H Mean Corpuscular Hemoglobin Concent 31.6 G/DL (32.0-36.0) L Red Cell Distribution Width 17.9 % (11.6-14.8) H Platelet Count 17 K/UL (150-450) L Mean Platelet Volume 10.6 FL (6.5-10.1) H Neutrophils (%) (Auto) % (45.0-75.0) Lymphocytes (%) (Auto) % (20.0-45.0) Monocytes (%) (Auto) % (1.0-10.0) Eosinophils (%) (Auto) % (0.0-3.0) Basophils (%) (Auto) % (0.0-2.0) Neutrophils % (Manual) Pending Lymphocytes % (Manual) Pending Platelet Estimate Pending Platelet Morphology Pending Prothrombin Time 16.8 SEC (9.30-11.50) H Prothromb Time International Ratio 1.6 (0.9-1.1) H Activated Partial Thromboplast Time 43 SEC (23-33) H Sodium Level 140 MMOL/L (136-145) Potassium Level 3.6 MMOL/L (3.5-5.1) Chloride Level 106 MMOL/L (98-107) Carbon Dioxide Level 23 MMOL/L (21-32) Anion Gap 11 mmol/L (5-15) Blood Urea Nitrogen 48 mg/dL (7-18) H Creatinine 4.8 MG/DL (0.55-1.30) H Estimat Glomerular Filtration Rate 10.2 mL/min (>60) Glucose Level 111 MG/DL (74-106) H Calcium Level 7.1 MG/DL (8.5-10.1) L Phosphorus Level 6.0 MG/DL (2.5-4.9) H Magnesium Level 1.8 MG/DL (1.8-2.4) Total Bilirubin 2.7 MG/DL (0.2-1.0) H Direct Bilirubin 1.9 MG/DL (0.0-0.3) H Aspartate Amino Transf (AST/SGOT) 83 U/L (15-37) H Alanine Aminotransferase (ALT/SGPT) 40 U/L (12-78) Alkaline Phosphatase 112 U/L (46-116) Total Protein 5.9 G/DL (6.4-8.2) L Albumin 1.6 G/DL (3.4-5.0) L Globulin 4.3 g/dL Albumin/Globulin Ratio 0.4 (1.0-2.7) L Heparin-PF4 Antibody Screen Pending Height (Feet): 5 Height (Inches): 3.00 Weight (Pounds): 312 General Appearance: lethargic Cardiovascular: normal rate Respiratory/Chest: normal breath sounds, no respiratory distress Abdominal Exam: soft Markus Lebron NP Aug 23, 2018 11:30
[2018-08-23 12:00] VITALS: BP 116/62
[2018-08-23] MEDS: Ertapenem 0.5 GM in NS 55 ML IVPB SCH (15:08)
[2018-08-23 16:00] VITALS: BP 133/61
[2018-08-23 20:00] VITALS: BP 129/63
[2018-08-23] MEDS: Dyna-Hex 2% Top Sol 2oz TOPIC SCH (20:09)
[2018-08-24] VITALS (13 sets, daily range): BP systolic 95–135; BP diastolic 46–82
--- NOTE | 2018-08-24 05:01 | Pulmonology Progress Note ---
Assessment/Plan Problems: (1) Acute encephalopathy (2) LENI (acute kidney injury) (3) ATN (acute tubular necrosis) (4) Coagulopathy (5) Esophageal varices (6) Alcoholic cirrhosis (7) End stage liver disease Assessment/Plan supportive care on Lactulose check ammonia level on abx check h/h, prbc and plt as per Hematology mother is at the bed site Subjective ROS Limited/Unobtainable: Yes Interval Events: comatouse Constitutional: Reports: no symptoms HEENT: Repors: no symptoms Allergies: Coded Allergies: LORAZEPAM (Verified Allergy, Unknown, 05/21/18) PENICILLINS (Verified Allergy, Unknown, 05/21/18) Objective Last 24 Hour Vital Signs Date Time Temp Pulse Resp B/P (MAP) Pulse Ox O2 Delivery O2 Flow Rate FiO2 08/24/18 04:00 96.4 82 20 123/68 (86) 100 96.4 08/24/18 04:00 75 08/24/18 04:00 Nasal Cannula 2.0 08/24/18 00:00 Nasal Cannula 2.0 08/24/18 00:00 97.7 74 19 120/82 (95) 100 97.7 08/24/18 00:00 74 08/23/18 20:00 Nasal Cannula 2.0 08/23/18 20:00 80 08/23/18 20:00 97.9 85 18 129/63 (85) 100 97.9 08/23/18 19:02 100 Nasal Cannula 2.0 28 08/23/18 19:02 Nasal Cannula 2.0 28 08/23/18 16:30 72 08/23/18 16:00 96.8 70 20 133/61 (85) 100 96.8 08/23/18 16:00 Nasal Cannula 2.0 08/23/18 12:00 97.2 72 16 116/62 (80) 100 97.2 08/23/18 12:00 72 08/23/18 12:00 Nasal Cannula 2.0 08/23/18 08:00 Nasal Cannula 2.0 08/23/18 08:00 97.0 74 18 112/72 (85) 100 97.0 08/23/18 08:00 70 08/23/18 07:13 Nasal Cannula 2.0 28 08/23/18 07:13 100 Nasal Cannula 2.0 28 Intake and Output 08/23/18 08/24/18 19:00 07:00 Intake Total 560 ml Output Total 350 ml Balance 210 ml IV Total 110 ml Blood Product 450 ml Output Urine Total 150 ml Stool Total 200 ml General Appearance: WD/WN HEENT: normocephalic, atraumatic Respiratory/Chest: chest wall non-tender, lungs clear Cardiovascular: normal rate Abdomen: normal bowel sounds, no organomegaly Genitourinary: normal external genitalia Skin: no rash, no lesions Laboratory Tests 08/23/18 08:25: White Blood Count 6.2, Red Blood Count 2.15L, Hemoglobin 6.7*L, Hematocrit 21.3L , Mean Corpuscular Volume 99, Mean Corpuscular Hemoglobin 31.3H, Mean Corpuscular Hemoglobin Concent 31.6L, Red Cell Distribution Width 17.9H, Platelet Count 17L, Mean Platelet Volume 10.6H, Neutrophils (%) (Auto) , Lymphocytes (%) (Auto) , Monocytes (%) (Auto) , Eosinophils (%) (Auto) , Basophils (%) (Auto) , Differential Total Cells Counted 100, Neutrophils % ( Manual) 67, Lymphocytes % (Manual) 18L, Monocytes % (Manual) 13H, Eosinophils % (Manual) 2, Basophils % (Manual) 0, Band Neutrophils 0, Platelet Estimate DecreasedL, Platelet Morphology Normal, Hypochromasia 4+, Anisocytosis 1+, Prothrombin Time 16.8H, Prothromb Time International Ratio 1.6H, Activated Partial Thromboplast Time 43H, Sodium Level 140, Potassium Level 3.6, Chloride Level 106, Carbon Dioxide Level 23, Anion Gap 11, Blood Urea Nitrogen 48H, Creatinine 4.8H, Estimat Glomerular Filtration Rate 10.2, Glucose Level 111H, Calcium Level 7.1L, Phosphorus Level 6.0H, Magnesium Level 1.8, Total Bilirubin 2.7H, Direct Bilirubin 1.9H, Aspartate Amino Transf (AST/SGOT) 83H, Alanine Aminotransferase (ALT/SGPT) 40, Alkaline Phosphatase 112, Total Protein 5.9L, Albumin 1.6L, Globulin 4.3, Albumin/Globulin Ratio 0.4L, Heparin-PF4 Antibody Screen [Pending] 08/23/18 09:55: Lactic Acid Level 2.40H 08/23/18 17:00: Lactic Acid Level 2.50H Current Medications Medications (Trade) Dose Ordered Sig/Abner Route PRN Reason Start Time Stop Time Status Last Admin Dose Admin Al Hydroxide/Mg Hydroxide (Mylanta II) 30 ml Q6H PRN ORAL dyspepsia 08/22/18 06:06 09/16/18 06:05 Chlorhexidine Gluconate (Sierra-Hex 2%) 1 applic DAILY@2000 TOPIC 08/22/18 20:00 09/18/18 19:59 08/23/18 20:09 Dextrose (Dextrose 50%) 25 ml Q30M PRN IV Hypoglycemia 08/22/18 06:30 09/16/18 16:20 Dextrose (Dextrose 50%) 50 ml Q30M PRN IV Hypoglycemia 08/22/18 06:30 09/16/18 16:20 Ertapenem 0.5 gm/ Sodium Chloride 55 ml @ 110 mls/hr Q24H IVPB 08/22/18 14:00 08/25/18 13:59 08/23/18 15:08 Heparin Sodium/ Sodium Chloride (Heparin 2000 units/Ns 1000ml premix) 2,000 unit ONCE PRN INJ picc line placement 08/23/18 11:00 08/25/18 11:00 Lactulose (Cephulac) 30 gm EVERY 6 HOURS ORAL 08/22/18 12:00 09/16/18 11:59 08/23/18 23:57 Lactulose (Cephulac) 60 gm THREE TIMES A DAY RECTAL 08/22/18 13:00 09/21/18 12:59 08/23/18 17:34 Lidocaine HCl (Xylocaine 1% 30ml) 30 ml ONCE PRN INJ picc line placement 08/23/18 11:00 08/25/18 10:59 Morphine Sulfate (Morphine Sulfate) 2 mg Q4H PRN IVP For Pain 08/22/18 06:08 08/24/18 06:07 08/23/18 20:11 Ondansetron HCl (Zofran) 4 mg Q6H PRN IVP Nausea & Vomiting 08/22/18 06:09 09/16/18 06:08 Pantoprazole (Protonix) 40 mg Q12H IVP 08/22/18 18:00 09/16/18 17:59 08/23/18 17:34 Polyethylene Glycol (Miralax) 17 gm HSPRN PRN ORAL Constipation 08/22/18 06:11 09/16/18 06:10 Jose Roberto Burleson MD Aug 24, 2018 05:01
[2018-08-24] MEDS: Lactulose 20gm/30ml UDC ORAL SCH ×3 (05:37→17:25)
[2018-08-24] MEDS: Pantoprazole Inj IVP SCH ×2 (05:40→17:37)
[2018-08-24 06:11] LABS: HEMATOCRIT 22.4 % (37.0-47.0); HEMOGLOBIN 7.2 G/DL (12.0-16.0); MEAN CORPUSCULAR VOLUME 98 FL (80-99); PLATELET COUNT 27 K/UL (150-450); RED BLOOD COUNT 2.29 M/UL (4.20-5.40); RED CELL DISTRIBUTION WIDTH 17.2 % (11.6-14.8)
[2018-08-24 06:17] LABS: ANION GAP 12 mmol/L (5-15); BLOOD UREA NITROGEN 52 mg/dL (7-18); CALCIUM 7.5 MG/DL (8.5-10.1); CARBON DIOXIDE 24 MMOL/L (21-32); CHLORIDE 107 MMOL/L (98-107); CREATININE 4.7 MG/DL (0.55-1.30); POTASSIUM 3.5 MMOL/L (3.5-5.1); SODIUM 143 MMOL/L (136-145)
[2018-08-24 06:49] LABS: WHITE BLOOD COUNT 6.4 K/UL (4.8-10.8)
--- NOTE | 2018-08-24 07:46 | Infectious Diseases Prog Note ---
Assessment/Plan Assessment/Plan The patient is a 38-year-old female with: 1. Probable sepsis, improving 2. Leukocytosis; SP -CXR: Pulmonary vascular congestion with increased interstitial markings , likely representing interstitial edema. This appears improved relative to the chest x-ray from 07/22/18 3. Urinary tract infection. u/a wbc 60-80, nit+, leuk large; ucx ESBL K. pna ( R zosyn, S ertapenem), Citrobacter freundi (R ancef, I Impienem, S ertapenem) 4. History of hepatitis panel and HIV serology negative. 5. GIB -s/p EGD 08/19: esophageal varices 6. Afebrile. 7. r/o bacteremia. -Bcx NTD 8. Acute renal insufficiency.; on HD -Renal US: unremarkable 9. Rule out probable spontaneous bacterial peritonitis. 10. Thrombocytopenia -. Alcoholic cirrhosis. -. Esophageal varices. PLAN: -Continue Ertapenem #6/7 for ESBL UTI -08/19 SP cefepime and Flagyl #3 -. Monitor BMP. -. Monitor cultures (blood).. -. Nephrology to follow on renal insufficiency. -. Based on the patient's clinical course and labs, we will do further recommendation. Thank you, Dr. Chauncey Fuentes, for allowing me to see this patient. I will follow the patient with you during this hospitalization. Subjective Allergies: Coded Allergies: LORAZEPAM (Verified Allergy, Unknown, 05/21/18) PENICILLINS (Verified Allergy, Unknown, 05/21/18) Subjective Afebrile No Leukocytosis Objective Vital Signs Last 24 Hour Vital Signs Date Time Temp Pulse Resp B/P (MAP) Pulse Ox O2 Delivery O2 Flow Rate FiO2 08/24/18 04:00 96.4 82 20 123/68 (86) 100 96.4 08/24/18 04:00 75 08/24/18 04:00 Nasal Cannula 2.0 08/24/18 00:00 Nasal Cannula 2.0 08/24/18 00:00 97.7 74 19 120/82 (95) 100 97.7 08/24/18 00:00 74 08/23/18 20:00 Nasal Cannula 2.0 08/23/18 20:00 80 08/23/18 20:00 97.9 85 18 129/63 (85) 100 97.9 08/23/18 19:02 100 Nasal Cannula 2.0 28 08/23/18 19:02 Nasal Cannula 2.0 28 08/23/18 16:30 72 08/23/18 16:00 96.8 70 20 133/61 (85) 100 96.8 08/23/18 16:00 Nasal Cannula 2.0 08/23/18 12:00 97.2 72 16 116/62 (80) 100 97.2 08/23/18 12:00 72 08/23/18 12:00 Nasal Cannula 2.0 08/23/18 08:00 Nasal Cannula 2.0 08/23/18 08:00 97.0 74 18 112/72 (85) 100 97.0 08/23/18 08:00 70 Height (Feet): 5 Height (Inches): 3.00 Weight (Pounds): 321 Objective GEN; nad HEENT: No pale conjunctivae. CHEST: Clear. No wheezing HEART: S1 and S2. ABDOMEN: Obese and nontender, + BS EXTREMITIES: No cyanosis at this time. There is no edema. NEUROLOGIC: Awake, but lethargic. Laboratory Tests Test 08/23/18 08:25 08/23/18 09:55 08/23/18 17:00 08/24/18 05:07 White Blood Count 6.2 K/UL (4.8-10.8) 6.4 K/UL (4.8-10.8) Red Blood Count 2.15 M/UL (4.20-5.40) L 2.29 M/UL (4.20-5.40) L Hemoglobin 6.7 G/DL (12.0-16.0) *L 7.2 G/DL (12.0-16.0) L Hematocrit 21.3 % (37.0-47.0) L 22.4 % (37.0-47.0) L Mean Corpuscular Volume 99 FL (80-99) 98 FL (80-99) Mean Corpuscular Hemoglobin 31.3 PG (27.0-31.0) H 31.6 PG (27.0-31.0) H Mean Corpuscular Hemoglobin Concent 31.6 G/DL (32.0-36.0) L 32.2 G/DL (32.0-36.0) Red Cell Distribution Width 17.9 % (11.6-14.8) H 17.2 % (11.6-14.8) H Platelet Count 17 K/UL (150-450) L 27 K/UL (150-450) #L Mean Platelet Volume 10.6 FL (6.5-10.1) H 10.8 FL (6.5-10.1) H Neutrophils (%) (Auto) % (45.0-75.0) % (45.0-75.0) Lymphocytes (%) (Auto) % (20.0-45.0) % (20.0-45.0) Monocytes (%) (Auto) % (1.0-10.0) % (1.0-10.0) Eosinophils (%) (Auto) % (0.0-3.0) % (0.0-3.0) Basophils (%) (Auto) % (0.0-2.0) % (0.0-2.0) Differential Total Cells Counted 100 Neutrophils % (Manual) 67 % (45-75) Pending Lymphocytes % (Manual) 18 % (20-45) L Pending Monocytes % (Manual) 13 % (1-10) H Eosinophils % (Manual) 2 % (0-3) Basophils % (Manual) 0 % (0-2) Band Neutrophils 0 % (0-8) Platelet Estimate Decreased L Pending Platelet Morphology Normal Pending Hypochromasia 4+ Anisocytosis 1+ Prothrombin Time 16.8 SEC (9.30-11.50) H Prothromb Time International Ratio 1.6 (0.9-1.1) H Activated Partial Thromboplast Time 43 SEC (23-33) H Sodium Level 140 MMOL/L (136-145) 143 MMOL/L (136-145) Potassium Level 3.6 MMOL/L (3.5-5.1) 3.5 MMOL/L (3.5-5.1) Chloride Level 106 MMOL/L (98-107) 107 MMOL/L (98-107) Carbon Dioxide Level 23 MMOL/L (21-32) 24 MMOL/L (21-32) Anion Gap 11 mmol/L (5-15) 12 mmol/L (5-15) Blood Urea Nitrogen 48 mg/dL (7-18) H 52 mg/dL (7-18) H Creatinine 4.8 MG/DL (0.55-1.30) H 4.7 MG/DL (0.55-1.30) H Estimat Glomerular Filtration Rate 10.2 mL/min (>60) 10.5 mL/min (>60) Glucose Level 111 MG/DL (74-106) H 110 MG/DL (74-106) H Calcium Level 7.1 MG/DL (8.5-10.1) L 7.5 MG/DL (8.5-10.1) L Phosphorus Level 6.0 MG/DL (2.5-4.9) H Magnesium Level 1.8 MG/DL (1.8-2.4) Total Bilirubin 2.7 MG/DL (0.2-1.0) H Direct Bilirubin 1.9 MG/DL (0.0-0.3) H Aspartate Amino Transf (AST/SGOT) 83 U/L (15-37) H Alanine Aminotransferase (ALT/SGPT) 40 U/L (12-78) Alkaline Phosphatase 112 U/L (46-116) Total Protein 5.9 G/DL (6.4-8.2) L Albumin 1.6 G/DL (3.4-5.0) L Globulin 4.3 g/dL Albumin/Globulin Ratio 0.4 (1.0-2.7) L Heparin-PF4 Antibody Screen Pending Lactic Acid Level 2.40 mmol/L (0.4-2.0) H 2.50 mmol/L (0.4-2.0) H Ammonia 180 umol/L (11-32) H Current Medications Medications (Trade) Dose Ordered Sig/Abner Route PRN Reason Start Time Stop Time Status Last Admin Dose Admin Al Hydroxide/Mg Hydroxide (Mylanta II) 30 ml Q6H PRN ORAL dyspepsia 08/22/18 06:06 09/16/18 06:05 Chlorhexidine Gluconate (Sierra-Hex 2%) 1 applic DAILY@1999 TOPIC 08/22/18 20:00 09/18/18 19:59 08/23/18 20:09 Dextrose (Dextrose 50%) 25 ml Q30M PRN IV Hypoglycemia 08/22/18 06:30 09/16/18 16:20 Dextrose (Dextrose 50%) 50 ml Q30M PRN IV Hypoglycemia 08/22/18 06:30 09/16/18 16:20 Ertapenem 0.5 gm/ Sodium Chloride 55 ml @ 110 mls/hr Q24H IVPB 08/22/18 14:00 08/25/18 13:59 08/23/18 15:08 Heparin Sodium/ Sodium Chloride (Heparin 2000 units/Ns 1000ml premix) 2,000 unit ONCE PRN INJ picc line placement 08/23/18 11:00 08/25/18 11:00 Lactulose (Cephulac) 30 gm EVERY 6 HOURS ORAL 08/22/18 12:00 09/16/18 11:59 08/24/18 05:37 Lactulose (Cephulac) 60 gm THREE TIMES A DAY RECTAL 08/22/18 13:00 09/21/18 12:59 08/23/18 17:34 Lidocaine HCl (Xylocaine 1% 30ml) 30 ml ONCE PRN INJ picc line placement 08/23/18 11:00 08/25/18 10:59 Ondansetron HCl (Zofran) 4 mg Q6H PRN IVP Nausea & Vomiting 08/22/18 06:09 09/16/18 06:08 Pantoprazole (Protonix) 40 mg Q12H IVP 08/22/18 18:00 09/16/18 17:59 08/24/18 05:40 Polyethylene Glycol (Miralax) 17 gm HSPRN PRN ORAL Constipation 08/22/18 06:11 09/16/18 06:10 Jean Jefferson MD Aug 24, 2018 07:46
--- NOTE | 2018-08-24 08:27 | Nephrology Progress Note ---
Assessment/Plan Assessment/Plan 1. LENI- multifact ATN ( hypotension/intravasc vol dep/?hepatorenal/Anemia) - HD today 2. Hyperk+- due to RI and metabolic acidosis - resolved 3. Hepatic Failure - alcohol. 4. Met Acidosis- AG/Lactic - resolved 5. GI Bleed/Anemia- per GI mgmt Subjective Date patient seen: Aug 24, 2018 Time patient seen: 08:26 ROS Limited/Unobtainable: Yes Allergies: Coded Allergies: LORAZEPAM (Verified Allergy, Unknown, 05/21/18) PENICILLINS (Verified Allergy, Unknown, 05/21/18) Subjective Patient confused and lethargic, mild agitation. Mother at bedside Objective Last 24 Hour Vital Signs Date Time Temp Pulse Resp B/P (MAP) Pulse Ox O2 Delivery O2 Flow Rate FiO2 08/24/18 08:00 97.6 83 18 127/50 (75) 100 97.6 08/24/18 04:00 96.4 82 20 123/68 (86) 100 96.4 08/24/18 04:00 75 08/24/18 04:00 Nasal Cannula 2.0 08/24/18 00:00 Nasal Cannula 2.0 08/24/18 00:00 97.7 74 19 120/82 (95) 100 97.7 08/24/18 00:00 74 08/23/18 20:00 Nasal Cannula 2.0 08/23/18 20:00 80 08/23/18 20:00 97.9 85 18 129/63 (85) 100 97.9 08/23/18 19:02 100 Nasal Cannula 2.0 28 08/23/18 19:02 Nasal Cannula 2.0 28 08/23/18 16:30 72 08/23/18 16:00 96.8 70 20 133/61 (85) 100 96.8 08/23/18 16:00 Nasal Cannula 2.0 08/23/18 12:00 97.2 72 16 116/62 (80) 100 97.2 08/23/18 12:00 72 08/23/18 12:00 Nasal Cannula 2.0 Intake and Output 08/23/18 08/24/18 19:00 07:00 Intake Total 560 ml Output Total 350 ml Balance 210 ml IV Total 110 ml Blood Product 450 ml Output Urine Total 150 ml Stool Total 200 ml Laboratory Tests 08/23/18 09:55: Lactic Acid Level 2.40H 08/23/18 17:00: Lactic Acid Level 2.50H 08/24/18 05:07: White Blood Count 6.4, Red Blood Count 2.29L, Hemoglobin 7.2L, Hematocrit 22.4L , Mean Corpuscular Volume 98, Mean Corpuscular Hemoglobin 31.6H, Mean Corpuscular Hemoglobin Concent 32.2, Red Cell Distribution Width 17.2H, Platelet Count 27#L, Mean Platelet Volume 10.8H, Neutrophils (%) (Auto) , Lymphocytes (%) (Auto) , Monocytes (%) (Auto) , Eosinophils (%) (Auto) , Basophils (%) (Auto) , Neutrophils % (Manual) [Pending], Lymphocytes % (Manual) [Pending], Platelet Estimate [Pending], Platelet Morphology [Pending], Sodium Level 143, Potassium Level 3.5, Chloride Level 107, Carbon Dioxide Level 24, Anion Gap 12, Blood Urea Nitrogen 52H, Creatinine 4.7H, Estimat Glomerular Filtration Rate 10.5, Glucose Level 110H, Calcium Level 7.5L, Ammonia 180H Height (Feet): 5 Height (Inches): 3.00 Weight (Pounds): 321 General Appearance: lethargic, confused EENT: normal ENT inspection Neck: normal alignment, supple Cardiovascular: normal rate, regular rhythm Respiratory/Chest: rhonchi - bilaterally Abdomen: distended, guarding Edema: 1+ Arm (L), 1+ Arm (R), 1+ Leg (L), 1+ Leg (R), 1+ Pedal (L), 1+ Pedal ( R), 1+ Generalized Amos Pinon MD Aug 24, 2018 08:27
--- NOTE | 2018-08-24 08:42 | General Progress Note ---
Assessment/Plan Problem List: (1) Acute encephalopathy ICD Codes: G93.40 - Encephalopathy, unspecified SNOMED: 76197183, 187903013 (2) Ascites ICD Codes: R18.8 - Other ascites SNOMED: 680897951 (3) Alcoholic cirrhosis ICD Codes: K70.30 - Alcoholic cirrhosis of liver without ascites SNOMED: 242366553 (4) Esophageal varices ICD Codes: I85.00 - Esophageal varices without bleeding SNOMED: 39850546 (5) Anemia ICD Codes: D64.9 - Anemia, unspecified SNOMED: 337867431 (6) Coagulopathy ICD Codes: D68.9 - Coagulation defect, unspecified SNOMED: 91905028 Assessment/Plan s/p one unit of blood and 2 units of plt transfusion on lactulose enema very poor prognosis given recent variceal bleed and banding and low PLT NGT placement very risky may need TPN fu labs Subjective ROS Limited/Unobtainable: No Allergies: Coded Allergies: LORAZEPAM (Verified Allergy, Unknown, 05/21/18) PENICILLINS (Verified Allergy, Unknown, 05/21/18) Subjective altered Objective Last 24 Hour Vital Signs Date Time Temp Pulse Resp B/P (MAP) Pulse Ox O2 Delivery O2 Flow Rate FiO2 08/24/18 08:00 97.6 83 18 127/50 (75) 100 97.6 08/24/18 04:00 96.4 82 20 123/68 (86) 100 96.4 08/24/18 04:00 75 08/24/18 04:00 Nasal Cannula 2.0 08/24/18 00:00 Nasal Cannula 2.0 08/24/18 00:00 97.7 74 19 120/82 (95) 100 97.7 08/24/18 00:00 74 08/23/18 20:00 Nasal Cannula 2.0 08/23/18 20:00 80 08/23/18 20:00 97.9 85 18 129/63 (85) 100 97.9 08/23/18 19:02 100 Nasal Cannula 2.0 28 08/23/18 19:02 Nasal Cannula 2.0 28 08/23/18 16:30 72 08/23/18 16:00 96.8 70 20 133/61 (85) 100 96.8 08/23/18 16:00 Nasal Cannula 2.0 08/23/18 12:00 97.2 72 16 116/62 (80) 100 97.2 08/23/18 12:00 72 08/23/18 12:00 Nasal Cannula 2.0 Intake and Output 08/23/18 08/24/18 19:00 07:00 Intake Total 560 ml Output Total 350 ml Balance 210 ml IV Total 110 ml Blood Product 450 ml Output Urine Total 150 ml Stool Total 200 ml Laboratory Tests 08/23/18 09:55: Lactic Acid Level 2.40H 08/23/18 17:00: Lactic Acid Level 2.50H 08/24/18 05:07: White Blood Count 6.4, Red Blood Count 2.29L, Hemoglobin 7.2L, Hematocrit 22.4L , Mean Corpuscular Volume 98, Mean Corpuscular Hemoglobin 31.6H, Mean Corpuscular Hemoglobin Concent 32.2, Red Cell Distribution Width 17.2H, Platelet Count 27#L, Mean Platelet Volume 10.8H, Neutrophils (%) (Auto) , Lymphocytes (%) (Auto) , Monocytes (%) (Auto) , Eosinophils (%) (Auto) , Basophils (%) (Auto) , Neutrophils % (Manual) [Pending], Lymphocytes % (Manual) [Pending], Platelet Estimate [Pending], Platelet Morphology [Pending], Sodium Level 143, Potassium Level 3.5, Chloride Level 107, Carbon Dioxide Level 24, Anion Gap 12, Blood Urea Nitrogen 52H, Creatinine 4.7H, Estimat Glomerular Filtration Rate 10.5, Glucose Level 110H, Calcium Level 7.5L, Ammonia 180H Height (Feet): 5 Height (Inches): 3.00 Weight (Pounds): 321 General Appearance: lethargic EENT: normal ENT inspection Neck: supple Cardiovascular: normal rate Respiratory/Chest: decreased breath sounds Abdomen: normal bowel sounds, non tender, soft Extremities: non-tender Crhistopher Rodriguez MD Aug 24, 2018 08:42
[2018-08-24] MEDS: Lactulose 20gm/30ml UDC RECTAL SCH ×3 (09:20→17:37)
[2018-08-24] MEDS ORDERED: NS 275ml ONE (10:39)
--- NOTE | 2018-08-24 11:44 | General Progress Note ---
Assessment/Plan Problem List: (1) Sepsis ICD Codes: A41.9 - Sepsis, unspecified organism SNOMED: 42475639 (2) Coagulopathy ICD Codes: D68.9 - Coagulation defect, unspecified SNOMED: 91095459 (3) GI bleed ICD Codes: K92.2 - Gastrointestinal hemorrhage, unspecified SNOMED: 07954653 (4) Anemia ICD Codes: D64.9 - Anemia, unspecified SNOMED: 768737886 (5) End stage liver disease ICD Codes: K72.90 - Hepatic failure, unspecified without coma SNOMED: 769972477 (6) Chronic renal insufficiency ICD Codes: N18.9 - Chronic kidney disease, unspecified SNOMED: 999755380 (7) Esophageal varices ICD Codes: I85.00 - Esophageal varices without bleeding SNOMED: 73635287 (8) Edema ICD Codes: R60.9 - Edema, unspecified SNOMED: 948243756, 537744680 (9) Alcoholic cirrhosis ICD Codes: K70.30 - Alcoholic cirrhosis of liver without ascites SNOMED: 413182250 (10) Ascites ICD Codes: R18.8 - Other ascites SNOMED: 386851386 (11) Acute encephalopathy ICD Codes: G93.40 - Encephalopathy, unspecified SNOMED: 66842436, 300787668 Status: unchanged Assessment/Plan etoh cirrhosi poor prognosis gi bleeding esophageal varices check h/h check ammonia prn afebrile sepsis encephalopathy Subjective ROS Limited/Unobtainable: Yes Allergies: Coded Allergies: LORAZEPAM (Verified Allergy, Unknown, 05/21/18) PENICILLINS (Verified Allergy, Unknown, 05/21/18) Objective Last 24 Hour Vital Signs Date Time Temp Pulse Resp B/P (MAP) Pulse Ox O2 Delivery O2 Flow Rate FiO2 08/24/18 11:32 Nasal Cannula 3.0 08/24/18 09:34 75 08/24/18 08:00 97.6 83 18 127/50 (75) 100 97.6 08/24/18 08:00 Nasal Cannula 2.0 08/24/18 04:00 96.4 82 20 123/68 (86) 100 96.4 08/24/18 04:00 75 08/24/18 04:00 Nasal Cannula 2.0 08/24/18 00:00 Nasal Cannula 2.0 08/24/18 00:00 97.7 74 19 120/82 (95) 100 97.7 08/24/18 00:00 74 08/23/18 20:00 Nasal Cannula 2.0 08/23/18 20:00 80 08/23/18 20:00 97.9 85 18 129/63 (85) 100 97.9 08/23/18 19:02 100 Nasal Cannula 2.0 28 08/23/18 19:02 Nasal Cannula 2.0 28 08/23/18 16:30 72 08/23/18 16:00 96.8 70 20 133/61 (85) 100 96.8 08/23/18 16:00 Nasal Cannula 2.0 08/23/18 12:00 97.2 72 16 116/62 (80) 100 97.2 08/23/18 12:00 72 08/23/18 12:00 Nasal Cannula 2.0 Intake and Output 08/23/18 08/24/18 19:00 07:00 Intake Total 560 ml Output Total 350 ml Balance 210 ml IV Total 110 ml Blood Product 450 ml Output Urine Total 150 ml Stool Total 200 ml Laboratory Tests 08/23/18 17:00: Lactic Acid Level 2.50H 08/24/18 05:07: White Blood Count 6.4, Red Blood Count 2.29L, Hemoglobin 7.2L, Hematocrit 22.4L , Mean Corpuscular Volume 98, Mean Corpuscular Hemoglobin 31.6H, Mean Corpuscular Hemoglobin Concent 32.2, Red Cell Distribution Width 17.2H, Platelet Count 27#L, Mean Platelet Volume 10.8H, Neutrophils (%) (Auto) , Lymphocytes (%) (Auto) , Monocytes (%) (Auto) , Eosinophils (%) (Auto) , Basophils (%) (Auto) , Differential Total Cells Counted 100, Neutrophils % ( Manual) 75, Lymphocytes % (Manual) 11L, Monocytes % (Manual) 8, Eosinophils % ( Manual) 4H, Basophils % (Manual) 0, Band Neutrophils 2, Platelet Estimate DecreasedL, Platelet Morphology Normal, Anisocytosis 1+, Sodium Level 143, Potassium Level 3.5, Chloride Level 107, Carbon Dioxide Level 24, Anion Gap 12, Blood Urea Nitrogen 52H, Creatinine 4.7H, Estimat Glomerular Filtration Rate 10.5, Glucose Level 110H, Calcium Level 7.5L, Ammonia 180H Height (Feet): 5 Height (Inches): 3.00 Weight (Pounds): 321 Cardiovascular: normal rate - ' Respiratory/Chest: lungs clear Abdomen: soft Isak Larose MD Aug 24, 2018 11:44
--- NOTE | 2018-08-24 13:43 | General Progress Note ---
Assessment/Plan Status: stable Assessment/Plan # Thrombocytopenia. Baseline appears to be 50-80k. Is most likely related to underlying liver disease with e/o portal htn. Hx of ETOH use. She does have evidence of hepatic cirrhosis, with surface nodularity an increased echogenicity. Evidence of portal hypertension, with ascites, splenomegaly, and flow reversal within the main and right portal vein. Evidence of prior cholecystectomy. Negative for dilated ducts. Prior CT and Us have been reviewed , hepatitis and hiv are both negative. --> Peripheral smear ordered and is negative for blasts, has been reviewed --> Abx and other meds have been reviewed. --> hold off heparin, asa, or plavix --> Transfuse plts if plt count >10k or if 20k and with fever --> Agree with lactulose and potential rifaxamin for elev ammonia # Anemia due to gastrointestinal bleed. Hemoglobin on admission 5-8 range, likely bleed related, ferritin is 1125 --> Gastroenterology to evaluate and manage. --> on octreotide gtt --> currently stabilized # Coagulopathy is likely related to underlying liver disease, liver us has been ordered --> no evidence of bleeding hold off unless bleeding is noted --> VIt K or ffp before procedure # Anemia of chronic disease, multifactorial --> Previous w/u has been reviewed. --> Will trend CBC daily --> Hgb goal above 7 --> Blood tx: 08/17,08/18, 08/19, 08/23, # Acute kidney injury secondary to intravascular volume depletion along with ischemic acute tubular necrosis from hypotension. --> Nephro following. Appreciate recs. # Hyperkalemia secondary to renal insufficiency and gastrointestinal bleed. --> The patient was given Kayexalate 60 g already. 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 Subjective Date patient seen: Aug 24, 2018 Hematologic/Lymphatic: Reports: anemia Allergies: Coded Allergies: LORAZEPAM (Verified Allergy, Unknown, 05/21/18) PENICILLINS (Verified Allergy, Unknown, 05/21/18) All Systems: reviewed and negative except above Subjective No acute events. HD today. Remains lethargic. S/P 1 unit leuk-reduced RBC. Hgb remains low. Objective Last 24 Hour Vital Signs Date Time Temp Pulse Resp B/P (MAP) Pulse Ox O2 Delivery O2 Flow Rate FiO2 08/24/18 13:21 Nasal Cannula 3.0 08/24/18 12:00 Nasal Cannula 2.0 08/24/18 12:00 97.4 75 19 105/51 (69) 100 97.4 08/24/18 11:32 Nasal Cannula 3.0 08/24/18 09:34 75 08/24/18 08:00 97.6 83 18 127/50 (75) 100 97.6 08/24/18 08:00 Nasal Cannula 2.0 08/24/18 04:00 96.4 82 20 123/68 (86) 100 96.4 08/24/18 04:00 75 08/24/18 04:00 Nasal Cannula 2.0 08/24/18 00:00 Nasal Cannula 2.0 08/24/18 00:00 97.7 74 19 120/82 (95) 100 97.7 08/24/18 00:00 74 08/23/18 20:00 Nasal Cannula 2.0 08/23/18 20:00 80 08/23/18 20:00 97.9 85 18 129/63 (85) 100 97.9 08/23/18 19:02 100 Nasal Cannula 2.0 28 08/23/18 19:02 Nasal Cannula 2.0 28 08/23/18 16:30 72 08/23/18 16:00 96.8 70 20 133/61 (85) 100 96.8 08/23/18 16:00 Nasal Cannula 2.0 Intake and Output 08/23/18 08/24/18 19:00 07:00 Intake Total 560 ml Output Total 350 ml Balance 210 ml IV Total 110 ml Blood Product 450 ml Output Urine Total 150 ml Stool Total 200 ml Laboratory Tests 08/23/18 17:00: Lactic Acid Level 2.50H 08/24/18 05:07: White Blood Count 6.4, Red Blood Count 2.29L, Hemoglobin 7.2L, Hematocrit 22.4L , Mean Corpuscular Volume 98, Mean Corpuscular Hemoglobin 31.6H, Mean Corpuscular Hemoglobin Concent 32.2, Red Cell Distribution Width 17.2H, Platelet Count 27#L, Mean Platelet Volume 10.8H, Neutrophils (%) (Auto) , Lymphocytes (%) (Auto) , Monocytes (%) (Auto) , Eosinophils (%) (Auto) , Basophils (%) (Auto) , Differential Total Cells Counted 100, Neutrophils % ( Manual) 75, Lymphocytes % (Manual) 11L, Monocytes % (Manual) 8, Eosinophils % ( Manual) 4H, Basophils % (Manual) 0, Band Neutrophils 2, Platelet Estimate DecreasedL, Platelet Morphology Normal, Anisocytosis 1+, Sodium Level 143, Potassium Level 3.5, Chloride Level 107, Carbon Dioxide Level 24, Anion Gap 12, Blood Urea Nitrogen 52H, Creatinine 4.7H, Estimat Glomerular Filtration Rate 10.5, Glucose Level 110H, Calcium Level 7.5L, Ammonia 180H Height (Feet): 5 Height (Inches): 3.00 Weight (Pounds): 321 General Appearance: no apparent distress, lethargic EENT: PERRL/EOMI Neck: normal alignment Cardiovascular: normal peripheral pulses Respiratory/Chest: no respiratory distress Abdomen: soft Michael Hernandez MD Aug 24, 2018 13:43
[2018-08-24] MEDS: Ertapenem 0.5 GM in NS 55 ML IVPB SCH (14:28)
[2018-08-24] MEDS ORDERED: Phytonadione 10 mg/mL 1ml amp SUBQ SCH (17:30)
[2018-08-24] MEDS ORDERED: LORazepam Inj 2mg/ml 1ml IV PRN ×3 (19:45→20:15)
[2018-08-24] MEDS: Dyna-Hex 2% Top Sol 2oz TOPIC SCH (20:29)
[2018-08-24] MEDS ORDERED: Phenytoin 1,000 MG in NS 275 ML IVPB ONE ×4 (20:30)
[2018-08-24] MEDS ORDERED: Mylanta II UD 30ml ORAL PRN (20:30)
[2018-08-24] MEDS: LORazepam Inj 2mg/ml 1ml IV PRN (22:29)
[2018-08-25] VITALS (24 sets, daily range): BP systolic 87–112; BP diastolic 31–72
[2018-08-25] MEDS: Lactulose 20gm/30ml UDC ORAL SCH ×5 (00:02→23:40)
[2018-08-25] MEDS: Pantoprazole Inj IVP SCH ×2 (05:46→20:46)
[2018-08-25 05:51] LABS: HEMATOCRIT 19.9 % (37.0-47.0); MEAN CORPUSCULAR VOLUME 97 FL (80-99); PLATELET COUNT 20 K/UL (150-450); RED BLOOD COUNT 2.04 M/UL (4.20-5.40); RED CELL DISTRIBUTION WIDTH 17.2 % (11.6-14.8); WHITE BLOOD COUNT 6.1 K/UL (4.8-10.8)
[2018-08-25 06:03] LABS: ANION GAP 13 mmol/L (5-15); BLOOD UREA NITROGEN 42 mg/dL (7-18); CARBON DIOXIDE 23 MMOL/L (21-32); CHLORIDE 107 MMOL/L (98-107); POTASSIUM 3.5 MMOL/L (3.5-5.1); SODIUM 143 MMOL/L (136-145)
[2018-08-25 06:04] LABS: HEMOGLOBIN 6.5 G/DL (12.0-16.0)
[2018-08-25 06:15] LABS: ALANINE AMINOTRANSFERASE 39 U/L (12-78); ALBUMIN 1.7 G/DL (3.4-5.0); ALBUMIN/GLOBULIN RATIO 0.4 (1.0-2.7); ALKALINE PHOSPHATASE 108 U/L (46-116); ANION GAP 11 mmol/L (5-15); ASPARTATE AMINO TRANSFERASE 75 U/L (15-37); BILIRUBIN,TOTAL 2.8 MG/DL (0.2-1.0); BLOOD UREA NITROGEN 42 mg/dL (7-18); CALCIUM 7.9 MG/DL (8.5-10.1); CARBON DIOXIDE 23 MMOL/L (21-32); CHLORIDE 108 MMOL/L (98-107); PHOSPHORUS 4.9 MG/DL (2.5-4.9); POTASSIUM 3.4 MMOL/L (3.5-5.1); SODIUM 142 MMOL/L (136-145)
[2018-08-25 06:20] LABS: INR 1.7 (0.9-1.1)
[2018-08-25 07:12] LABS: BILIRUBIN,DIRECT 1.9 MG/DL (0.0-0.3)
--- NOTE | 2018-08-25 08:18 | General Progress Note ---
Assessment/Plan Problem List: (1) Acute encephalopathy ICD Codes: G93.40 - Encephalopathy, unspecified SNOMED: 17254047, 962848331 (2) Ascites ICD Codes: R18.8 - Other ascites SNOMED: 657129236 (3) Alcoholic cirrhosis ICD Codes: K70.30 - Alcoholic cirrhosis of liver without ascites SNOMED: 197070915 (4) Esophageal varices ICD Codes: I85.00 - Esophageal varices without bleeding SNOMED: 95980446 (5) Anemia ICD Codes: D64.9 - Anemia, unspecified SNOMED: 295115910 (6) Coagulopathy ICD Codes: D68.9 - Coagulation defect, unspecified SNOMED: 89498968 Assessment/Plan transfuse on lactulose enema very poor prognosis given recent variceal bleed and banding and low PLT NGT placement very risky may need TPN fu labs Subjective ROS Limited/Unobtainable: No Allergies: Coded Allergies: LORAZEPAM (Verified Allergy, Unknown, 05/21/18) PENICILLINS (Verified Allergy, Unknown, 05/21/18) Subjective altered transferred to icu due to SZ Objective Last 24 Hour Vital Signs Date Time Temp Pulse Resp B/P (MAP) Pulse Ox O2 Delivery O2 Flow Rate FiO2 08/25/18 07:00 76 13 92/43 (59) 100 08/25/18 06:00 77 15 94/49 (64) 100 08/25/18 05:00 77 14 96/52 (67) 100 08/25/18 04:00 Nasal Cannula 4.0 08/25/18 04:00 97.7 76 16 96/48 (64) 100 97.7 08/25/18 03:59 78 08/25/18 03:00 77 14 98/47 (64) 100 08/25/18 02:00 76 13 96/43 (60) 100 08/25/18 01:00 76 14 90/61 (71) 100 08/25/18 00:00 96.8 82 15 112/65 (81) 100 96.8 08/25/18 00:00 77 08/25/18 00:00 Nasal Cannula 4.0 08/24/18 23:00 76 13 104/46 (65) 100 08/24/18 22:00 76 15 132/50 (77) 100 08/24/18 21:00 79 13 95/61 (72) 100 08/24/18 20:30 84 12 100/59 (73) 100 08/24/18 20:10 92 08/24/18 20:00 97.8 96 16 125/70 (88) 99 97.8 08/24/18 20:00 Nasal Cannula 4.0 08/24/18 19:06 100 17 135/65 (88) 92 08/24/18 18:16 97.7 100 16 108/57 (74) 95 97.7 08/24/18 18:07 97.7 83 16 114/64 (81) 100 97.7 08/24/18 16:00 97.7 89 18 116/75 (89) 100 97.7 08/24/18 16:00 Nasal Cannula 2.0 08/24/18 15:53 76 08/24/18 13:21 Nasal Cannula 3.0 08/24/18 12:00 70 08/24/18 12:00 Nasal Cannula 2.0 08/24/18 12:00 97.4 75 19 105/51 (69) 100 97.4 08/24/18 11:32 Nasal Cannula 3.0 08/24/18 09:34 75 Intake and Output 08/24/18 08/25/18 19:00 07:00 Intake Total 155 ml 80 ml Output Total 3100 ml 210 ml Balance -2945 ml -130 ml IV Total 155 ml Other 80 ml Output Urine Total 200 ml 60 ml Stool Total 400 ml 150 ml Hemodialysis UF 2500 ml Laboratory Tests 08/25/18 05:09: White Blood Count 6.1, Red Blood Count 2.04L, Hemoglobin 6.5*L, Hematocrit 19.9L , Mean Corpuscular Volume 97, Mean Corpuscular Hemoglobin 31.6H, Mean Corpuscular Hemoglobin Concent 32.5, Red Cell Distribution Width 17.2H, Platelet Count 20L, Mean Platelet Volume 8.6, Neutrophils (%) (Auto) , Lymphocytes (%) (Auto) , Monocytes (%) (Auto) , Eosinophils (%) (Auto) , Basophils (%) (Auto) , Neutrophils % (Manual) [Pending], Lymphocytes % (Manual) [Pending], Platelet Estimate [Pending], Platelet Morphology [Pending], Prothrombin Time 17.0H, Prothromb Time International Ratio 1.7H, Activated Partial Thromboplast Time 39H, Sodium Level 143, Potassium Level 3.5, Chloride Level 107, Carbon Dioxide Level 23, Anion Gap 13, Blood Urea Nitrogen 42H, Creatinine 4.0H, Estimat Glomerular Filtration Rate 12.7, Glucose Level 115H, Calcium Level 8.0L, Phosphorus Level 4.9, Magnesium Level 1.7L, Total Bilirubin 2.8H, Direct Bilirubin 1.9H, Aspartate Amino Transf (AST/SGOT) 75H, Alanine Aminotransferase (ALT/SGPT) 39, Alkaline Phosphatase 108, Ammonia 144H, Total Protein 5.8L, Albumin 1.7L, Globulin 4.1, Albumin/Globulin Ratio 0.4L Height (Feet): 5 Height (Inches): 3.00 Weight (Pounds): 310 General Appearance: lethargic EENT: normal ENT inspection Neck: supple Cardiovascular: normal rate Respiratory/Chest: decreased breath sounds Abdomen: normal bowel sounds, non tender, soft Extremities: non-tender Christopher Rodriguez MD Aug 25, 2018 08:18
--- NOTE | 2018-08-25 08:46 | Nephrology Progress Note ---
Assessment/Plan Assessment/Plan 1. LENI- multifact ATN ( hypotension/intravasc vol dep/?hepatorenal/Anemia) - HD . E- stable. Hemodynamically labile - HD Sunday pending hemodynamics 2. Hyperk+- due to RI and metabolic acidosis - resolved 3. Hepatic Failure- poor prognosis - alcohol. 4. Met Acidosis- AG/Lactic - resolved 5. GI Bleed/Anemia- per GI mgmt Overall high mortality and very poor prognosis. Consider hospice comfort care at this point Subjective Date patient seen: Aug 25, 2018 Time patient seen: 08:43 ROS Limited/Unobtainable: Yes Allergies: Coded Allergies: LORAZEPAM (Verified Allergy, Unknown, 05/21/18) PENICILLINS (Verified Allergy, Unknown, 05/21/18) Subjective Patient confused and lethargic, tx to ICU due to seizures Objective Last 24 Hour Vital Signs Date Time Temp Pulse Resp B/P (MAP) Pulse Ox O2 Delivery O2 Flow Rate FiO2 08/25/18 08:00 Nasal Cannula 4.0 08/25/18 07:00 76 13 92/43 (59) 100 08/25/18 06:00 77 15 94/49 (64) 100 08/25/18 05:00 77 14 96/52 (67) 100 08/25/18 04:00 Nasal Cannula 4.0 08/25/18 04:00 97.7 76 16 96/48 (64) 100 97.7 08/25/18 03:59 78 08/25/18 03:00 77 14 98/47 (64) 100 08/25/18 02:00 76 13 96/43 (60) 100 08/25/18 01:00 76 14 90/61 (71) 100 08/25/18 00:00 96.8 82 15 112/65 (81) 100 96.8 08/25/18 00:00 77 08/25/18 00:00 Nasal Cannula 4.0 08/24/18 23:00 76 13 104/46 (65) 100 08/24/18 22:00 76 15 132/50 (77) 100 08/24/18 21:00 79 13 95/61 (72) 100 08/24/18 20:30 84 12 100/59 (73) 100 08/24/18 20:10 92 08/24/18 20:00 97.8 96 16 125/70 (88) 99 97.8 08/24/18 20:00 Nasal Cannula 4.0 08/24/18 19:06 100 17 135/65 (88) 92 08/24/18 18:16 97.7 100 16 108/57 (74) 95 97.7 08/24/18 18:07 97.7 83 16 114/64 (81) 100 97.7 08/24/18 16:00 97.7 89 18 116/75 (89) 100 97.7 08/24/18 16:00 Nasal Cannula 2.0 08/24/18 15:53 76 08/24/18 13:21 Nasal Cannula 3.0 08/24/18 12:00 70 08/24/18 12:00 Nasal Cannula 2.0 08/24/18 12:00 97.4 75 19 105/51 (69) 100 97.4 08/24/18 11:32 Nasal Cannula 3.0 08/24/18 09:34 75 Intake and Output 08/24/18 08/25/18 19:00 07:00 Intake Total 155 ml 80 ml Output Total 3100 ml 210 ml Balance -2945 ml -130 ml IV Total 155 ml Other 80 ml Output Urine Total 200 ml 60 ml Stool Total 400 ml 150 ml Hemodialysis UF 2500 ml Laboratory Tests 08/25/18 05:09: White Blood Count 6.1, Red Blood Count 2.04L, Hemoglobin 6.5*L, Hematocrit 19.9L , Mean Corpuscular Volume 97, Mean Corpuscular Hemoglobin 31.6H, Mean Corpuscular Hemoglobin Concent 32.5, Red Cell Distribution Width 17.2H, Platelet Count 20L, Mean Platelet Volume 8.6, Neutrophils (%) (Auto) , Lymphocytes (%) (Auto) , Monocytes (%) (Auto) , Eosinophils (%) (Auto) , Basophils (%) (Auto) , Neutrophils % (Manual) [Pending], Lymphocytes % (Manual) [Pending], Platelet Estimate [Pending], Platelet Morphology [Pending], Prothrombin Time 17.0H, Prothromb Time International Ratio 1.7H, Activated Partial Thromboplast Time 39H, Sodium Level 143, Potassium Level 3.5, Chloride Level 107, Carbon Dioxide Level 23, Anion Gap 13, Blood Urea Nitrogen 42H, Creatinine 4.0H, Estimat Glomerular Filtration Rate 12.7, Glucose Level 115H, Calcium Level 8.0L, Phosphorus Level 4.9, Magnesium Level 1.7L, Total Bilirubin 2.8H, Direct Bilirubin 1.9H, Aspartate Amino Transf (AST/SGOT) 75H, Alanine Aminotransferase (ALT/SGPT) 39, Alkaline Phosphatase 108, Ammonia 144H, Total Protein 5.8L, Albumin 1.7L, Globulin 4.1, Albumin/Globulin Ratio 0.4L Height (Feet): 5 Height (Inches): 3.00 Weight (Pounds): 310 General Appearance: lethargic, confused EENT: normal ENT inspection Neck: normal alignment, supple Cardiovascular: regular rhythm Respiratory/Chest: rhonchi - bilaterally Abdomen: distended, guarding Edema: 4+ Arm (L), 4+ Arm (R), 4+ Leg (L), 4+ Leg (R), 4+ Pedal (L), 4+ Pedal ( R), 4+ Generalized Amos Pinon MD Aug 25, 2018 08:46
--- NOTE | 2018-08-25 09:56 | General Progress Note ---
Assessment/Plan Problem List: (1) Sepsis ICD Codes: A41.9 - Sepsis, unspecified organism SNOMED: 80146260 (2) Coagulopathy ICD Codes: D68.9 - Coagulation defect, unspecified SNOMED: 60764699 (3) GI bleed ICD Codes: K92.2 - Gastrointestinal hemorrhage, unspecified SNOMED: 78653019 (4) Anemia ICD Codes: D64.9 - Anemia, unspecified SNOMED: 162905229 (5) End stage liver disease ICD Codes: K72.90 - Hepatic failure, unspecified without coma SNOMED: 037195396 (6) Chronic renal insufficiency ICD Codes: N18.9 - Chronic kidney disease, unspecified SNOMED: 953371294 (7) Esophageal varices ICD Codes: I85.00 - Esophageal varices without bleeding SNOMED: 69364203 (8) Edema ICD Codes: R60.9 - Edema, unspecified SNOMED: 123498729, 906923625 (9) Alcoholic cirrhosis ICD Codes: K70.30 - Alcoholic cirrhosis of liver without ascites SNOMED: 715026670 (10) Ascites ICD Codes: R18.8 - Other ascites SNOMED: 977317040 (11) Acute encephalopathy ICD Codes: G93.40 - Encephalopathy, unspecified SNOMED: 73181552, 438387407 Status: unchanged Assessment/Plan etoh cirrhosis moniter closely no wheezing poor prognosis gi bleeding sepsis encephalopathy Subjective ROS Limited/Unobtainable: Yes Allergies: Coded Allergies: LORAZEPAM (Verified Allergy, Unknown, 05/21/18) PENICILLINS (Verified Allergy, Unknown, 05/21/18) Objective Last 24 Hour Vital Signs Date Time Temp Pulse Resp B/P (MAP) Pulse Ox O2 Delivery O2 Flow Rate FiO2 08/25/18 08:00 Nasal Cannula 4.0 08/25/18 07:00 76 13 92/43 (59) 100 08/25/18 06:00 77 15 94/49 (64) 100 08/25/18 05:00 77 14 96/52 (67) 100 08/25/18 04:00 Nasal Cannula 4.0 08/25/18 04:00 97.7 76 16 96/48 (64) 100 97.7 08/25/18 03:59 78 08/25/18 03:00 77 14 98/47 (64) 100 08/25/18 02:00 76 13 96/43 (60) 100 08/25/18 01:00 76 14 90/61 (71) 100 08/25/18 00:00 96.8 82 15 112/65 (81) 100 96.8 08/25/18 00:00 77 08/25/18 00:00 Nasal Cannula 4.0 08/24/18 23:00 76 13 104/46 (65) 100 08/24/18 22:00 76 15 132/50 (77) 100 08/24/18 21:00 79 13 95/61 (72) 100 08/24/18 20:30 84 12 100/59 (73) 100 08/24/18 20:10 92 08/24/18 20:00 97.8 96 16 125/70 (88) 99 97.8 08/24/18 20:00 Nasal Cannula 4.0 08/24/18 19:06 100 17 135/65 (88) 92 08/24/18 18:16 97.7 100 16 108/57 (74) 95 97.7 08/24/18 18:07 97.7 83 16 114/64 (81) 100 97.7 08/24/18 16:00 97.7 89 18 116/75 (89) 100 97.7 08/24/18 16:00 Nasal Cannula 2.0 08/24/18 15:53 76 08/24/18 13:21 Nasal Cannula 3.0 08/24/18 12:00 70 08/24/18 12:00 Nasal Cannula 2.0 08/24/18 12:00 97.4 75 19 105/51 (69) 100 97.4 08/24/18 11:32 Nasal Cannula 3.0 Intake and Output 08/24/18 08/25/18 19:00 07:00 Intake Total 155 ml 80 ml Output Total 3100 ml 210 ml Balance -2945 ml -130 ml IV Total 155 ml Other 80 ml Output Urine Total 200 ml 60 ml Stool Total 400 ml 150 ml Hemodialysis UF 2500 ml Laboratory Tests 08/25/18 05:09: White Blood Count 6.1, Red Blood Count 2.04L, Hemoglobin 6.5*L, Hematocrit 19.9L , Mean Corpuscular Volume 97, Mean Corpuscular Hemoglobin 31.6H, Mean Corpuscular Hemoglobin Concent 32.5, Red Cell Distribution Width 17.2H, Platelet Count 20L, Mean Platelet Volume 8.6, Neutrophils (%) (Auto) , Lymphocytes (%) (Auto) , Monocytes (%) (Auto) , Eosinophils (%) (Auto) , Basophils (%) (Auto) , Differential Total Cells Counted 100, Neutrophils % ( Manual) 63, Lymphocytes % (Manual) 23, Monocytes % (Manual) 13H, Eosinophils % ( Manual) 1, Basophils % (Manual) 0, Band Neutrophils 0, Platelet Estimate DecreasedL, Platelet Morphology Normal, Hypochromasia 2+, Anisocytosis 1+, Prothrombin Time 17.0H, Prothromb Time International Ratio 1.7H, Activated Partial Thromboplast Time 39H, Sodium Level 143, Potassium Level 3.5, Chloride Level 107, Carbon Dioxide Level 23, Anion Gap 13, Blood Urea Nitrogen 42H, Creatinine 4.0H, Estimat Glomerular Filtration Rate 12.7, Glucose Level 115H, Calcium Level 8.0L, Phosphorus Level 4.9, Magnesium Level 1.7L, Total Bilirubin 2.8H, Direct Bilirubin 1.9H, Aspartate Amino Transf (AST/SGOT) 75H, Alanine Aminotransferase (ALT/SGPT) 39, Alkaline Phosphatase 108, Ammonia 144H, Total Protein 5.8L, Albumin 1.7L, Globulin 4.1, Albumin/Globulin Ratio 0.4L Height (Feet): 5 Height (Inches): 3.00 Weight (Pounds): 310 General Appearance: confused Respiratory/Chest: lungs clear Abdomen: soft Isak Larose MD Aug 25, 2018 09:56
[2018-08-25] MEDS: Lactulose 20gm/30ml UDC RECTAL SCH ×3 (10:23→18:00)
[2018-08-25] MEDS ORDERED: Ertapenem 0.5 GM in NS 55 ML IVPB SCH (14:00)
--- NOTE | 2018-08-25 17:27 | General Progress Note ---
Assessment/Plan Status: not improved Assessment/Plan # Thrombocytopenia. Baseline appears to be 50-80k. Is most likely related to underlying liver disease with e/o portal htn. Hx of ETOH use. She does have evidence of hepatic cirrhosis, with surface nodularity an increased echogenicity. Evidence of portal hypertension, with ascites, splenomegaly, and flow reversal within the main and right portal vein. Evidence of prior cholecystectomy. Negative for dilated ducts. Prior CT and Us have been reviewed , hepatitis and hiv are both negative. --> Peripheral smear ordered and is negative for blasts, has been reviewed --> Abx and other meds have been reviewed. --> hold off heparin, asa, or plavix --> Transfuse plts if plt count >10k or if 20k and with fever --> Agree with lactulose and potential rifaximin for elev ammonia # Anemia due to gastrointestinal bleed. Hemoglobin on admission 5-8 range, likely bleed related, ferritin is 1125 --> Gastroenterology to evaluate and manage. --> on octreotide gtt # Coagulopathy is likely related to underlying liver disease, liver us has been ordered --> no evidence of bleeding hold off unless bleeding is noted --> VIt K or ffp before procedure # Anemia of chronic disease, multifactorial --> Previous w/u has been reviewed. --> Will trend CBC daily --> Hgb goal above 7 --> Blood tx: 08/17,08/18, 08/19, 08/23, 08/25, # Acute kidney injury secondary to intravascular volume depletion along with ischemic acute tubular necrosis from hypotension. --> Nephro following. Appreciate recs. # Hyperkalemia secondary to renal insufficiency and gastrointestinal bleed. --> The patient was given Kayexalate 60 g already. 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 Subjective Date patient seen: Aug 25, 2018 Hematologic/Lymphatic: Reports: anemia Allergies: Coded Allergies: LORAZEPAM (Verified Allergy, Unknown, 05/21/18) PENICILLINS (Verified Allergy, Unknown, 05/21/18) All Systems: reviewed and negative except above Subjective Pt had seizure overnight. Transferred to ICU. Hgb at 6.5, blood tx ordered. Objective Last 24 Hour Vital Signs Date Time Temp Pulse Resp B/P (MAP) Pulse Ox O2 Delivery O2 Flow Rate FiO2 08/25/18 16:00 97.7 80 16 96/47 (63) 100 97.7 08/25/18 15:00 76 13 91/43 (59) 100 08/25/18 14:00 76 13 93/44 (60) 100 08/25/18 13:00 75 13 92/38 (56) 100 08/25/18 12:00 Nasal Cannula 4.0 08/25/18 12:00 76 11 94/44 (61) 100 08/25/18 11:00 76 0 91/40 (57) 100 08/25/18 10:00 77 10 96/43 (60) 100 08/25/18 09:00 76 14 87/31 (49) 100 08/25/18 08:00 Nasal Cannula 4.0 08/25/18 08:00 98.8 82 14 98/49 (65) 100 98.8 08/25/18 07:00 76 13 92/43 (59) 100 08/25/18 06:00 77 15 94/49 (64) 100 08/25/18 05:00 77 14 96/52 (67) 100 08/25/18 04:00 Nasal Cannula 4.0 08/25/18 04:00 97.7 76 16 96/48 (64) 100 97.7 08/25/18 03:59 78 08/25/18 03:00 77 14 98/47 (64) 100 08/25/18 02:00 76 13 96/43 (60) 100 08/25/18 01:00 76 14 90/61 (71) 100 08/25/18 00:00 96.8 82 15 112/65 (81) 100 96.8 08/25/18 00:00 77 08/25/18 00:00 Nasal Cannula 4.0 08/24/18 23:00 76 13 104/46 (65) 100 08/24/18 22:00 76 15 132/50 (77) 100 08/24/18 21:00 79 13 95/61 (72) 100 08/24/18 20:30 84 12 100/59 (73) 100 08/24/18 20:10 92 08/24/18 20:00 97.8 96 16 125/70 (88) 99 97.8 08/24/18 20:00 Nasal Cannula 4.0 08/24/18 19:06 100 17 135/65 (88) 92 08/24/18 18:16 97.7 100 16 108/57 (74) 95 97.7 08/24/18 18:07 97.7 83 16 114/64 (81) 100 97.7 Intake and Output 08/24/18 08/25/18 19:00 07:00 Intake Total 155 ml 80 ml Output Total 3100 ml 210 ml Balance -2945 ml -130 ml IV Total 155 ml Other 80 ml Output Urine Total 200 ml 60 ml Stool Total 400 ml 150 ml Hemodialysis UF 2500 ml Laboratory Tests 08/25/18 05:09: White Blood Count 6.1, Red Blood Count 2.04L, Hemoglobin 6.5*L, Hematocrit 19.9L , Mean Corpuscular Volume 97, Mean Corpuscular Hemoglobin 31.6H, Mean Corpuscular Hemoglobin Concent 32.5, Red Cell Distribution Width 17.2H, Platelet Count 20L, Mean Platelet Volume 8.6, Neutrophils (%) (Auto) , Lymphocytes (%) (Auto) , Monocytes (%) (Auto) , Eosinophils (%) (Auto) , Basophils (%) (Auto) , Differential Total Cells Counted 100, Neutrophils % ( Manual) 63, Lymphocytes % (Manual) 23, Monocytes % (Manual) 13H, Eosinophils % ( Manual) 1, Basophils % (Manual) 0, Band Neutrophils 0, Platelet Estimate DecreasedL, Platelet Morphology Normal, Hypochromasia 2+, Anisocytosis 1+, Prothrombin Time 17.0H, Prothromb Time International Ratio 1.7H, Activated Partial Thromboplast Time 39H, Sodium Level 143, Potassium Level 3.5, Chloride Level 107, Carbon Dioxide Level 23, Anion Gap 13, Blood Urea Nitrogen 42H, Creatinine 4.0H, Estimat Glomerular Filtration Rate 12.7, Glucose Level 115H, Calcium Level 8.0L, Phosphorus Level 4.9, Magnesium Level 1.7L, Total Bilirubin 2.8H, Direct Bilirubin 1.9H, Aspartate Amino Transf (AST/SGOT) 75H, Alanine Aminotransferase (ALT/SGPT) 39, Alkaline Phosphatase 108, Ammonia 144H, Total Protein 5.8L, Albumin 1.7L, Globulin 4.1, Albumin/Globulin Ratio 0.4L Height (Feet): 5 Height (Inches): 3.00 Weight (Pounds): 310 General Appearance: no apparent distress EENT: PERRL/EOMI Neck: normal alignment Cardiovascular: normal peripheral pulses Respiratory/Chest: no respiratory distress Abdomen: soft Michael Hernandez MD Aug 25, 2018 17:27
[2018-08-25] MEDS ORDERED: Tubing IV Secondary IV ONE (18:39)
[2018-08-25] MEDS ORDERED: Tubing Blood Filter IV ONE (18:39)
[2018-08-25] MEDS ORDERED: NS 275ml ONE (18:39)
[2018-08-25] MEDS ORDERED: Sterile Water Irrig 1000ml IRRIG ONE (18:43)
[2018-08-25] MEDS: Dyna-Hex 2% Top Sol 2oz TOPIC SCH (19:44)
[2018-08-25] MEDS ORDERED: Miralax 17gm pkt ORAL PRN (21:00)
--- NOTE | 2018-08-25 21:09 | General Progress Note ---
Assessment/Plan Problem List: (1) Sepsis ICD Codes: A41.9 - Sepsis, unspecified organism SNOMED: 29107364 (2) Coagulopathy ICD Codes: D68.9 - Coagulation defect, unspecified SNOMED: 79211524 (3) GI bleed ICD Codes: K92.2 - Gastrointestinal hemorrhage, unspecified SNOMED: 60599364 (4) Anemia ICD Codes: D64.9 - Anemia, unspecified SNOMED: 063722596 (5) End stage liver disease ICD Codes: K72.90 - Hepatic failure, unspecified without coma SNOMED: 850417953 (6) Chronic renal insufficiency ICD Codes: N18.9 - Chronic kidney disease, unspecified SNOMED: 783373316 (7) Esophageal varices ICD Codes: I85.00 - Esophageal varices without bleeding SNOMED: 28083737 (8) Edema ICD Codes: R60.9 - Edema, unspecified SNOMED: 806015073, 424446826 (9) Alcoholic cirrhosis ICD Codes: K70.30 - Alcoholic cirrhosis of liver without ascites SNOMED: 105276060 (10) Ascites ICD Codes: R18.8 - Other ascites SNOMED: 900504047 (11) Acute encephalopathy ICD Codes: G93.40 - Encephalopathy, unspecified SNOMED: 61495991, 508991138 Status: progressing Assessment/Plan etoh cirrhosis s/p varices moniter for bleeding check h/h poor prognosis gi bleeding sepsis encephalopathy Subjective ROS Limited/Unobtainable: Yes Allergies: Coded Allergies: LORAZEPAM (Verified Allergy, Unknown, 05/21/18) PENICILLINS (Verified Allergy, Unknown, 05/21/18) Objective Last 24 Hour Vital Signs Date Time Temp Pulse Resp B/P (MAP) Pulse Ox O2 Delivery O2 Flow Rate FiO2 08/25/18 19:00 75 14 94/49 (64) 100 08/25/18 18:00 77 14 89/55 (66) 100 08/25/18 17:00 74 14 93/39 (57) 100 08/25/18 16:00 76 08/25/18 16:00 97.7 80 16 96/47 (63) 100 97.7 08/25/18 16:00 Nasal Cannula 4.0 08/25/18 15:00 76 13 91/43 (59) 100 08/25/18 14:00 76 13 93/44 (60) 100 08/25/18 13:00 75 13 92/38 (56) 100 08/25/18 12:00 Nasal Cannula 4.0 08/25/18 12:00 75 08/25/18 12:00 76 11 94/44 (61) 100 08/25/18 11:00 76 0 91/40 (57) 100 08/25/18 10:00 77 10 96/43 (60) 100 08/25/18 09:00 76 14 87/31 (49) 100 08/25/18 08:00 74 08/25/18 08:00 Nasal Cannula 4.0 08/25/18 08:00 98.8 82 14 98/49 (65) 100 98.8 08/25/18 07:00 76 13 92/43 (59) 100 08/25/18 06:00 77 15 94/49 (64) 100 08/25/18 05:00 77 14 96/52 (67) 100 08/25/18 04:00 Nasal Cannula 4.0 08/25/18 04:00 97.7 76 16 96/48 (64) 100 97.7 08/25/18 03:59 78 08/25/18 03:00 77 14 98/47 (64) 100 08/25/18 02:00 76 13 96/43 (60) 100 08/25/18 01:00 76 14 90/61 (71) 100 08/25/18 00:00 96.8 82 15 112/65 (81) 100 96.8 08/25/18 00:00 77 08/25/18 00:00 Nasal Cannula 4.0 08/24/18 23:00 76 13 104/46 (65) 100 08/24/18 22:00 76 15 132/50 (77) 100 Intake and Output 08/24/18 08/25/18 19:00 07:00 Intake Total 155 ml 80 ml Output Total 3100 ml 210 ml Balance -2945 ml -130 ml IV Total 155 ml Other 80 ml Output Urine Total 200 ml 60 ml Stool Total 400 ml 150 ml Hemodialysis UF 2500 ml Laboratory Tests 08/25/18 05:09: White Blood Count 6.1, Red Blood Count 2.04L, Hemoglobin 6.5*L, Hematocrit 19.9L , Mean Corpuscular Volume 97, Mean Corpuscular Hemoglobin 31.6H, Mean Corpuscular Hemoglobin Concent 32.5, Red Cell Distribution Width 17.2H, Platelet Count 20L, Mean Platelet Volume 8.6, Neutrophils (%) (Auto) , Lymphocytes (%) (Auto) , Monocytes (%) (Auto) , Eosinophils (%) (Auto) , Basophils (%) (Auto) , Differential Total Cells Counted 100, Neutrophils % ( Manual) 63, Lymphocytes % (Manual) 23, Monocytes % (Manual) 13H, Eosinophils % ( Manual) 1, Basophils % (Manual) 0, Band Neutrophils 0, Platelet Estimate DecreasedL, Platelet Morphology Normal, Hypochromasia 2+, Anisocytosis 1+, Prothrombin Time 17.0H, Prothromb Time International Ratio 1.7H, Activated Partial Thromboplast Time 39H, Sodium Level 143, Potassium Level 3.5, Chloride Level 107, Carbon Dioxide Level 23, Anion Gap 13, Blood Urea Nitrogen 42H, Creatinine 4.0H, Estimat Glomerular Filtration Rate 12.7, Glucose Level 115H, Calcium Level 8.0L, Phosphorus Level 4.9, Magnesium Level 1.7L, Total Bilirubin 2.8H, Direct Bilirubin 1.9H, Aspartate Amino Transf (AST/SGOT) 75H, Alanine Aminotransferase (ALT/SGPT) 39, Alkaline Phosphatase 108, Ammonia 144H, Total Protein 5.8L, Albumin 1.7L, Globulin 4.1, Albumin/Globulin Ratio 0.4L Height (Feet): 5 Height (Inches): 3.00 Weight (Pounds): 310 Cardiovascular: normal rate Respiratory/Chest: lungs clear Isak Larose MD Aug 25, 2018 21:09
[2018-08-26] VITALS (23 sets, daily range): BP systolic 90–110; BP diastolic 39–60
[2018-08-26] MEDS: LORazepam Inj 2mg/ml 1ml IV PRN (00:34)
[2018-08-26 05:16] LABS: HEMATOCRIT 21.9 % (37.0-47.0); HEMOGLOBIN 7.3 G/DL (12.0-16.0); MEAN CORPUSCULAR VOLUME 96 FL (80-99); PLATELET COUNT 20 K/UL (150-450); RED BLOOD COUNT 2.29 M/UL (4.20-5.40); RED CELL DISTRIBUTION WIDTH 17.7 % (11.6-14.8); WHITE BLOOD COUNT 6.8 K/UL (4.8-10.8)
[2018-08-26 05:26] LABS: AMMONIA 135 umol/L (11-32)
[2018-08-26 05:34] LABS: INR 1.7 (0.9-1.1)
[2018-08-26 05:36] LABS: ALANINE AMINOTRANSFERASE 35 U/L (12-78); ALBUMIN 1.8 G/DL (3.4-5.0); ALBUMIN/GLOBULIN RATIO 0.4 (1.0-2.7); ALKALINE PHOSPHATASE 112 U/L (46-116); ANION GAP 11 mmol/L (5-15); ASPARTATE AMINO TRANSFERASE 72 U/L (15-37); BILIRUBIN,TOTAL 2.8 MG/DL (0.2-1.0); BLOOD UREA NITROGEN 47 mg/dL (7-18); CALCIUM 8.4 MG/DL (8.5-10.1); CARBON DIOXIDE 25 MMOL/L (21-32); CHLORIDE 108 MMOL/L (98-107); CREATININE 4.2 MG/DL (0.55-1.30); POTASSIUM 3.3 MMOL/L (3.5-5.1); SODIUM 144 MMOL/L (136-145)
[2018-08-26 05:43] LABS: BILIRUBIN,DIRECT 1.9 MG/DL (0.0-0.3)
[2018-08-26] MEDS: Lactulose 20gm/30ml UDC ORAL SCH ×4 (05:48→23:42)
--- NOTE | 2018-08-26 07:45 | Nephrology Progress Note ---
Assessment/Plan Assessment/Plan 1. LENI- multifact ATN ( hypotension/intravasc vol dep/?hepatorenal/Anemia) - Hold HD as patient hemodynamically unstable 2. Hypok+- replace 3. Hepatic Failure- poor prognosis - alcohol. Consider terminal care 4. Met Acidosis- AG/Lactic, resolved 5. GI Bleed/Anemia- per GI mgmt Overall high mortality and very poor prognosis. Consider hospice comfort care at this point Subjective Date patient seen: Aug 26, 2018 Time patient seen: 07:43 ROS Limited/Unobtainable: Yes Allergies: Coded Allergies: LORAZEPAM (Verified Allergy, Unknown, 05/21/18) PENICILLINS (Verified Allergy, Unknown, 05/21/18) Subjective Patient confused and lethargic, BP low Objective Last 24 Hour Vital Signs Date Time Temp Pulse Resp B/P (MAP) Pulse Ox O2 Delivery O2 Flow Rate FiO2 08/26/18 07:00 71 21 97/48 (64) 100 08/26/18 06:00 68 18 92/52 (65) 100 08/26/18 05:00 71 23 90/45 (60) 100 08/26/18 04:03 76 08/26/18 04:00 Nasal Cannula 4.0 08/26/18 04:00 97.6 72 14 97/40 (59) 100 97.6 08/26/18 03:00 72 14 99/49 (66) 100 08/26/18 02:00 74 13 92/39 (56) 100 08/26/18 01:00 84 14 98/44 (62) 100 08/26/18 00:19 85 08/26/18 00:00 Nasal Cannula 4.0 08/26/18 00:00 97.8 83 17 104/53 (70) 100 97.8 08/25/18 23:00 78 13 93/72 (79) 100 08/25/18 22:00 77 13 94/46 (62) 100 08/25/18 21:00 76 13 92/41 (58) 100 08/25/18 20:06 75 08/25/18 20:00 98.6 77 14 93/41 (58) 100 98.6 08/25/18 20:00 Nasal Cannula 4.0 08/25/18 19:12 Nasal Cannula 2.0 28 08/25/18 19:12 98 Nasal Cannula 2.0 28 08/25/18 19:00 75 14 94/49 (64) 100 08/25/18 18:00 77 14 89/55 (66) 100 08/25/18 17:00 74 14 93/39 (57) 100 08/25/18 16:00 76 08/25/18 16:00 97.7 80 16 96/47 (63) 100 97.7 08/25/18 16:00 Nasal Cannula 4.0 08/25/18 15:00 76 13 91/43 (59) 100 08/25/18 14:00 76 13 93/44 (60) 100 08/25/18 13:00 75 13 92/38 (56) 100 08/25/18 12:00 Nasal Cannula 4.0 08/25/18 12:00 75 08/25/18 12:00 76 11 94/44 (61) 100 08/25/18 11:00 76 0 91/40 (57) 100 08/25/18 10:00 77 10 96/43 (60) 100 08/25/18 09:00 76 14 87/31 (49) 100 08/25/18 08:00 74 08/25/18 08:00 Nasal Cannula 4.0 08/25/18 08:00 98.8 82 14 98/49 (65) 100 98.8 Intake and Output 08/25/18 08/26/18 19:00 07:00 Intake Total 305 ml 160 ml Output Total 240 ml 340 ml Balance 65 ml -180 ml IV Total 55 ml Blood Product 250 ml Other 160 ml Output Urine Total 40 ml 40 ml Stool Total 200 ml 300 ml Laboratory Tests 08/26/18 04:53: White Blood Count 6.8, Red Blood Count 2.29L, Hemoglobin 7.3L, Hematocrit 21.9L , Mean Corpuscular Volume 96, Mean Corpuscular Hemoglobin 31.9H, Mean Corpuscular Hemoglobin Concent 33.3, Red Cell Distribution Width 17.7H, Platelet Count 20L, Mean Platelet Volume 12.1H, Neutrophils (%) (Auto) , Lymphocytes (%) (Auto) , Monocytes (%) (Auto) , Eosinophils (%) (Auto) , Basophils (%) (Auto) , Neutrophils % (Manual) [Pending], Lymphocytes % (Manual) [Pending], Platelet Estimate [Pending], Platelet Morphology [Pending], Prothrombin Time 17.1H, Prothromb Time International Ratio 1.7H, Sodium Level 144, Potassium Level 3.3L, Chloride Level 108H, Carbon Dioxide Level 25, Anion Gap 11, Blood Urea Nitrogen 47H, Creatinine 4.2H, Estimat Glomerular Filtration Rate 11.9, Glucose Level 117H, Calcium Level 8.4L, Total Bilirubin 2.8H, Direct Bilirubin 1.9H, Aspartate Amino Transf (AST/SGOT) 72H, Alanine Aminotransferase (ALT/SGPT) 35, Alkaline Phosphatase 112, Ammonia 135H, Total Protein 5.9L, Albumin 1.8L, Globulin 4.1, Albumin/Globulin Ratio 0.4L Height (Feet): 5 Height (Inches): 3.00 Weight (Pounds): 308 General Appearance: lethargic, confused EENT: normal ENT inspection Neck: normal alignment, supple Cardiovascular: normal rate, regular rhythm Respiratory/Chest: rhonchi - bilaterally Abdomen: distended, guarding Edema: 4+ Arm (L), 4+ Arm (R), 4+ Leg (L), 4+ Leg (R), 4+ Pedal (L), 4+ Pedal ( R), 4+ Generalized Amos Pinon MD Aug 26, 2018 07:45
--- NOTE | 2018-08-26 08:20 | General Progress Note ---
Assessment/Plan Assessment/Plan # Thrombocytopenia. Baseline appears to be 50-80k. Is most likely related to underlying liver disease with e/o portal htn. Hx of ETOH use. She does have evidence of hepatic cirrhosis, with surface nodularity an increased echogenicity. Evidence of portal hypertension, with ascites, splenomegaly, and flow reversal within the main and right portal vein. Evidence of prior cholecystectomy. Negative for dilated ducts. Prior CT and Us have been reviewed , hepatitis and hiv are both negative. Current the count is closer to 15-35k. --> Peripheral smear ordered and is negative for blasts, has been reviewed --> Abx and other meds have been reviewed. --> hold off heparin, asa, or plavix --> Transfuse plts if plt count >10k or if 20k and with fever --> Agree with lactulose and potential rifaximin for elev ammonia # Coagulopathy is likely related to underlying liver disease, liver us shows " Evidence of chronic liver disease with enlarged fatty liver and stigmata of portal hypertension including hepatofugal portal venous flow." --> no evidence of bleeding hold off unless bleeding is noted --> VIt K or ffp before procedure # Anemia due to gastrointestinal bleed. Hemoglobin on admission 5-8 range, likely bleed related, ferritin is 1125 --> Gastroenterology to evaluate and manage. --> was in the past on octreotide gtt # Anemia of chronic disease, multifactorial --> Previous w/u has been reviewed. --> Will trend CBC daily --> Hgb goal above 7 --> Blood tx: 08/17,08/18, 08/19, 08/23, 08/25, # Acute kidney injury secondary to intravascular volume depletion along with ischemic acute tubular necrosis from hypotension. --> Nephro following. Appreciate recs. # Hyperkalemia secondary to renal insufficiency and gastrointestinal bleed. --> The patient was given Kayexalate 60 g already. 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 Subjective Constitutional: Denies: no symptoms, chills, diaphoresis, fever, malaise, weakness, other HEENT: Denies: no symptoms, eye pain, blurred vision, tearing, double vision, ear pain, ear discharge, nose pain, nose congestion, throat pain, throat swelling, mouth pain, mouth swelling, other Cardiovascular: Denies: no symptoms, chest pain, edema, irregular heart rate, lightheadedness, palpitations, syncope, other Respiratory: Denies: no symptoms, cough, orthopnea, shortness of breath, SOB with excertion, SOB at rest, sputum, stridor, wheezing, other Gastrointestinal/Abdominal: Denies: no symptoms, abdomen distended, abdominal pain, black stools, tarry stools, blood in stool, constipated, diarrhea, difficulty swallowing, nausea, poor appetite, poor fluid intake, rectal bleeding , vomiting, other Genitourinary: Denies: no symptoms, burning, discharge, frequency, flank pain, hematuria, incontinence, pain, urgency, other Neurologic/Psychiatric: Denies: no symptoms, anxiety, depressed, emotional problems, headache, numbness, paresthesia, pre-existing deficit, seizure, tingling, tremors, weakness, other Endocrine: Denies: no symptoms, excessive sweating, flushing, intolerance to cold, intolerance to heat, increased hunger, increased thirst, increased urine, unexplained weight gain, unexplained weight loss, other Hematologic/Lymphatic: Denies: no symptoms, anemia, easy bleeding, easy bruising, other Allergies: Coded Allergies: LORAZEPAM (Verified Allergy, Unknown, 05/21/18) PENICILLINS (Verified Allergy, Unknown, 05/21/18) Subjective Transferred to ICU. Hgb remains low, plt remains low, blood tx ordered. Objective Last 24 Hour Vital Signs Date Time Temp Pulse Resp B/P (MAP) Pulse Ox O2 Delivery O2 Flow Rate FiO2 08/26/18 07:00 71 21 97/48 (64) 100 08/26/18 06:00 68 18 92/52 (65) 100 08/26/18 05:00 71 23 90/45 (60) 100 08/26/18 04:03 76 08/26/18 04:00 Nasal Cannula 4.0 08/26/18 04:00 97.6 72 14 97/40 (59) 100 97.6 08/26/18 03:00 72 14 99/49 (66) 100 08/26/18 02:00 74 13 92/39 (56) 100 08/26/18 01:00 84 14 98/44 (62) 100 08/26/18 00:19 85 08/26/18 00:00 Nasal Cannula 4.0 08/26/18 00:00 97.8 83 17 104/53 (70) 100 97.8 08/25/18 23:00 78 13 93/72 (79) 100 08/25/18 22:00 77 13 94/46 (62) 100 08/25/18 21:00 76 13 92/41 (58) 100 08/25/18 20:06 75 08/25/18 20:00 98.6 77 14 93/41 (58) 100 98.6 08/25/18 20:00 Nasal Cannula 4.0 08/25/18 19:12 Nasal Cannula 2.0 28 08/25/18 19:12 98 Nasal Cannula 2.0 28 08/25/18 19:00 75 14 94/49 (64) 100 08/25/18 18:00 77 14 89/55 (66) 100 08/25/18 17:00 74 14 93/39 (57) 100 08/25/18 16:00 76 08/25/18 16:00 97.7 80 16 96/47 (63) 100 97.7 08/25/18 16:00 Nasal Cannula 4.0 08/25/18 15:00 76 13 91/43 (59) 100 08/25/18 14:00 76 13 93/44 (60) 100 08/25/18 13:00 75 13 92/38 (56) 100 08/25/18 12:00 Nasal Cannula 4.0 08/25/18 12:00 75 08/25/18 12:00 76 11 94/44 (61) 100 08/25/18 11:00 76 0 91/40 (57) 100 08/25/18 10:00 77 10 96/43 (60) 100 08/25/18 09:00 76 14 87/31 (49) 100 Intake and Output 08/25/18 08/26/18 19:00 07:00 Intake Total 305 ml 160 ml Output Total 240 ml 340 ml Balance 65 ml -180 ml IV Total 55 ml Blood Product 250 ml Other 160 ml Output Urine Total 40 ml 40 ml Stool Total 200 ml 300 ml Laboratory Tests 08/26/18 04:53: White Blood Count 6.8, Red Blood Count 2.29L, Hemoglobin 7.3L, Hematocrit 21.9L , Mean Corpuscular Volume 96, Mean Corpuscular Hemoglobin 31.9H, Mean Corpuscular Hemoglobin Concent 33.3, Red Cell Distribution Width 17.7H, Platelet Count 20L, Mean Platelet Volume 12.1H, Neutrophils (%) (Auto) , Lymphocytes (%) (Auto) , Monocytes (%) (Auto) , Eosinophils (%) (Auto) , Basophils (%) (Auto) , Neutrophils % (Manual) [Pending], Lymphocytes % (Manual) [Pending], Platelet Estimate [Pending], Platelet Morphology [Pending], Prothrombin Time 17.1H, Prothromb Time International Ratio 1.7H, Sodium Level 144, Potassium Level 3.3L, Chloride Level 108H, Carbon Dioxide Level 25, Anion Gap 11, Blood Urea Nitrogen 47H, Creatinine 4.2H, Estimat Glomerular Filtration Rate 11.9, Glucose Level 117H, Calcium Level 8.4L, Total Bilirubin 2.8H, Direct Bilirubin 1.9H, Aspartate Amino Transf (AST/SGOT) 72H, Alanine Aminotransferase (ALT/SGPT) 35, Alkaline Phosphatase 112, Ammonia 135H, Total Protein 5.9L, Albumin 1.8L, Globulin 4.1, Albumin/Globulin Ratio 0.4L Height (Feet): 5 Height (Inches): 3.00 Weight (Pounds): 308 General Appearance: lethargic EENT: TMs normal Neck: supple Cardiovascular: regular rhythm Respiratory/Chest: lungs clear Abdomen: non tender Extremities: non-tender Edema: 1+ Leg (L), 1+ Leg (R) Edema: mild edema Neurologic: alert Michael Hernandez MD Aug 26, 2018 08:20
[2018-08-26] MEDS: Lactulose 20gm/30ml UDC RECTAL SCH ×3 (09:23→17:39)
[2018-08-26] MEDS: Pantoprazole Inj IVP SCH ×2 (09:23→20:45)
--- NOTE | 2018-08-26 10:10 | Pulmonolgy Critical Care Note ---
Critical Care - Asmt/Plan Problems: (1) Acute encephalopathy (2) ATN (acute tubular necrosis) (3) Sepsis (4) Hemorrhagic shock (5) Coagulopathy (6) End stage liver disease (7) Alcoholic cirrhosis (8) Ascites (9) Hypotension (10) Chronic renal insufficiency Respiratory: monitor respiratory rate, adjust FIO2 Cardiac: continue to monitor HR/BP Renal: F/U I&O, keep IV fluid Infectious Disease: check cultures Gastrointestinal: other - dubhof catheter will be inserted by GI Endocrine: monitor blood sugar Hematologic: monitor H/H Neurologic: PRN Ativan, PRN Morphine Notes Reviewed: cardio, 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 with: nurses, consultants, 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 manager - Objective Last 24 Hour Vital Signs Date Time Temp Pulse Resp B/P (MAP) Pulse Ox O2 Delivery O2 Flow Rate FiO2 08/26/18 08:00 Nasal Cannula 4.0 08/26/18 07:00 71 21 97/48 (64) 100 08/26/18 06:00 68 18 92/52 (65) 100 08/26/18 05:00 71 23 90/45 (60) 100 08/26/18 04:03 76 08/26/18 04:00 Nasal Cannula 4.0 08/26/18 04:00 97.6 72 14 97/40 (59) 100 97.6 08/26/18 03:00 72 14 99/49 (66) 100 08/26/18 02:00 74 13 92/39 (56) 100 08/26/18 01:00 84 14 98/44 (62) 100 08/26/18 00:19 85 08/26/18 00:00 Nasal Cannula 4.0 08/26/18 00:00 97.8 83 17 104/53 (70) 100 97.8 08/25/18 23:00 78 13 93/72 (79) 100 08/25/18 22:00 77 13 94/46 (62) 100 08/25/18 21:00 76 13 92/41 (58) 100 08/25/18 20:06 75 08/25/18 20:00 98.6 77 14 93/41 (58) 100 98.6 08/25/18 20:00 Nasal Cannula 4.0 08/25/18 19:12 Nasal Cannula 2.0 28 08/25/18 19:12 98 Nasal Cannula 2.0 28 08/25/18 19:00 75 14 94/49 (64) 100 08/25/18 18:00 77 14 89/55 (66) 100 08/25/18 17:00 74 14 93/39 (57) 100 08/25/18 16:00 76 08/25/18 16:00 97.7 80 16 96/47 (63) 100 97.7 08/25/18 16:00 Nasal Cannula 4.0 08/25/18 15:00 76 13 91/43 (59) 100 08/25/18 14:00 76 13 93/44 (60) 100 08/25/18 13:00 75 13 92/38 (56) 100 08/25/18 12:00 Nasal Cannula 4.0 08/25/18 12:00 75 08/25/18 12:00 76 11 94/44 (61) 100 08/25/18 11:00 76 0 91/40 (57) 100 Status: somnolent Condition: critical HEENT: atraumatic Lungs: clear Heart: HR/BP unstable Abdomen: non-tender, feeding tube Extremities: edema Decubiti: location Critical Care - Subjective ROS Limited/Unobtainable: Yes Condition: critical EKG Rhythm: Sinus Rhythm FI02: 28 Sputum Amount: None I&O: Intake and Output 08/25/18 08/26/18 19:00 07:00 Intake Total 305 ml 160 ml Output Total 240 ml 340 ml Balance 65 ml -180 ml IV Total 55 ml Blood Product 250 ml Other 160 ml Output Urine Total 40 ml 40 ml Stool Total 200 ml 300 ml Labs: Laboratory Tests Test 08/26/18 04:53 White Blood Count 6.8 K/UL (4.8-10.8) Red Blood Count 2.29 M/UL (4.20-5.40) L Hemoglobin 7.3 G/DL (12.0-16.0) L Hematocrit 21.9 % (37.0-47.0) L Mean Corpuscular Volume 96 FL (80-99) Mean Corpuscular Hemoglobin 31.9 PG (27.0-31.0) H Mean Corpuscular Hemoglobin Concent 33.3 G/DL (32.0-36.0) Red Cell Distribution Width 17.7 % (11.6-14.8) H Platelet Count 20 K/UL (150-450) L Mean Platelet Volume 12.1 FL (6.5-10.1) H Neutrophils (%) (Auto) % (45.0-75.0) Lymphocytes (%) (Auto) % (20.0-45.0) Monocytes (%) (Auto) % (1.0-10.0) Eosinophils (%) (Auto) % (0.0-3.0) Basophils (%) (Auto) % (0.0-2.0) Differential Total Cells Counted 100 Neutrophils % (Manual) 62 % (45-75) Lymphocytes % (Manual) 24 % (20-45) Monocytes % (Manual) 10 % (1-10) Eosinophils % (Manual) 3 % (0-3) Basophils % (Manual) 0 % (0-2) Band Neutrophils 1 % (0-8) Platelet Estimate Decreased L Platelet Morphology Normal Hypochromasia 1+ Anisocytosis 1+ Prothrombin Time 17.1 SEC (9.30-11.50) H Prothromb Time International Ratio 1.7 (0.9-1.1) H Sodium Level 144 MMOL/L (136-145) Potassium Level 3.3 MMOL/L (3.5-5.1) L Chloride Level 108 MMOL/L (98-107) H Carbon Dioxide Level 25 MMOL/L (21-32) Anion Gap 11 mmol/L (5-15) Blood Urea Nitrogen 47 mg/dL (7-18) H Creatinine 4.2 MG/DL (0.55-1.30) H Estimat Glomerular Filtration Rate 11.9 mL/min (>60) Glucose Level 117 MG/DL (74-106) H Calcium Level 8.4 MG/DL (8.5-10.1) L Total Bilirubin 2.8 MG/DL (0.2-1.0) H Direct Bilirubin 1.9 MG/DL (0.0-0.3) H Aspartate Amino Transf (AST/SGOT) 72 U/L (15-37) H Alanine Aminotransferase (ALT/SGPT) 35 U/L (12-78) Alkaline Phosphatase 112 U/L (46-116) Ammonia 135 umol/L (11-32) H Total Protein 5.9 G/DL (6.4-8.2) L Albumin 1.8 G/DL (3.4-5.0) L Globulin 4.1 g/dL Albumin/Globulin Ratio 0.4 (1.0-2.7) L Jose Roberto Burleson MD Aug 26, 2018 10:10
[2018-08-26] MEDS: Octreotide Acetate 500 MCG in Sodium Chloride 500ML 499 ML IV SCH ×2 (10:37→20:45)
--- NOTE | 2018-08-26 10:57 | GI Progress Note ---
Assessment/Plan Problems: (1) Ascites ICD Codes: R18.8 - Other ascites SNOMED: 360089804 (2) Alcoholic cirrhosis ICD Codes: K70.30 - Alcoholic cirrhosis of liver without ascites SNOMED: 596516082 (3) Esophageal varices ICD Codes: I85.00 - Esophageal varices without bleeding SNOMED: 82980507 (4) Anemia ICD Codes: D64.9 - Anemia, unspecified SNOMED: 088757900 (5) Chronic renal insufficiency ICD Codes: N18.9 - Chronic kidney disease, unspecified SNOMED: 395031428 (6) Coagulopathy ICD Codes: D68.9 - Coagulation defect, unspecified SNOMED: 70269298 (7) Hemorrhagic shock ICD Codes: R57.8 - Other shock SNOMED: 813677 (8) GI bleed ICD Codes: K92.2 - Gastrointestinal hemorrhage, unspecified SNOMED: 58142399 Status: not improved, unchanged, deteriorating Status Narrative Discussed with Dr. Rodriguez. Assessment/Plan s/p EGD >> Esophageal varices, status post banding x7. RECOMMENDATIONS: restart octreotide ppi BID transfuse prn on lactulose enema very poor prognosis given recent variceal bleed and banding and low PLT NGT placement very risky, may need TPN fu labs The patient was seen and examined at bedside and all new and available data was reviewed in the patients chart. I agree with the above findings, impression and plan. (Patient seen earlier today. Signature stamp does not reflect patient encounter time.). - Christopher Rodriguez MD Subjective Subjective limited Objective Last 24 Hour Vital Signs Date Time Temp Pulse Resp B/P (MAP) Pulse Ox O2 Delivery O2 Flow Rate FiO2 08/26/18 08:00 98.6 74 18 92/52 (65) 100 98.6 08/26/18 08:00 Nasal Cannula 4.0 08/26/18 07:00 71 21 97/48 (64) 100 08/26/18 06:00 68 18 92/52 (65) 100 08/26/18 05:00 71 23 90/45 (60) 100 08/26/18 04:03 76 08/26/18 04:00 Nasal Cannula 4.0 08/26/18 04:00 97.6 72 14 97/40 (59) 100 97.6 08/26/18 03:00 72 14 99/49 (66) 100 08/26/18 02:00 74 13 92/39 (56) 100 08/26/18 01:00 84 14 98/44 (62) 100 08/26/18 00:19 85 08/26/18 00:00 Nasal Cannula 4.0 08/26/18 00:00 97.8 83 17 104/53 (70) 100 97.8 08/25/18 23:00 78 13 93/72 (79) 100 08/25/18 22:00 77 13 94/46 (62) 100 08/25/18 21:00 76 13 92/41 (58) 100 08/25/18 20:06 75 08/25/18 20:00 98.6 77 14 93/41 (58) 100 98.6 08/25/18 20:00 Nasal Cannula 4.0 08/25/18 19:12 Nasal Cannula 2.0 28 08/25/18 19:12 98 Nasal Cannula 2.0 28 08/25/18 19:00 75 14 94/49 (64) 100 08/25/18 18:00 77 14 89/55 (66) 100 08/25/18 17:00 74 14 93/39 (57) 100 08/25/18 16:00 76 08/25/18 16:00 97.7 80 16 96/47 (63) 100 97.7 08/25/18 16:00 Nasal Cannula 4.0 08/25/18 15:00 76 13 91/43 (59) 100 08/25/18 14:00 76 13 93/44 (60) 100 08/25/18 13:00 75 13 92/38 (56) 100 08/25/18 12:00 Nasal Cannula 4.0 08/25/18 12:00 75 08/25/18 12:00 76 11 94/44 (61) 100 08/25/18 11:00 76 0 91/40 (57) 100 Intake and Output 08/25/18 08/26/18 19:00 07:00 Intake Total 305 ml 160 ml Output Total 240 ml 340 ml Balance 65 ml -180 ml IV Total 55 ml Blood Product 250 ml Other 160 ml Output Urine Total 40 ml 40 ml Stool Total 200 ml 300 ml Laboratory Tests Test 08/26/18 04:53 White Blood Count 6.8 K/UL (4.8-10.8) Red Blood Count 2.29 M/UL (4.20-5.40) L Hemoglobin 7.3 G/DL (12.0-16.0) L Hematocrit 21.9 % (37.0-47.0) L Mean Corpuscular Volume 96 FL (80-99) Mean Corpuscular Hemoglobin 31.9 PG (27.0-31.0) H Mean Corpuscular Hemoglobin Concent 33.3 G/DL (32.0-36.0) Red Cell Distribution Width 17.7 % (11.6-14.8) H Platelet Count 20 K/UL (150-450) L Mean Platelet Volume 12.1 FL (6.5-10.1) H Neutrophils (%) (Auto) % (45.0-75.0) Lymphocytes (%) (Auto) % (20.0-45.0) Monocytes (%) (Auto) % (1.0-10.0) Eosinophils (%) (Auto) % (0.0-3.0) Basophils (%) (Auto) % (0.0-2.0) Differential Total Cells Counted 100 Neutrophils % (Manual) 62 % (45-75) Lymphocytes % (Manual) 24 % (20-45) Monocytes % (Manual) 10 % (1-10) Eosinophils % (Manual) 3 % (0-3) Basophils % (Manual) 0 % (0-2) Band Neutrophils 1 % (0-8) Platelet Estimate Decreased L Platelet Morphology Normal Hypochromasia 1+ Anisocytosis 1+ Prothrombin Time 17.1 SEC (9.30-11.50) H Prothromb Time International Ratio 1.7 (0.9-1.1) H Sodium Level 144 MMOL/L (136-145) Potassium Level 3.3 MMOL/L (3.5-5.1) L Chloride Level 108 MMOL/L (98-107) H Carbon Dioxide Level 25 MMOL/L (21-32) Anion Gap 11 mmol/L (5-15) Blood Urea Nitrogen 47 mg/dL (7-18) H Creatinine 4.2 MG/DL (0.55-1.30) H Estimat Glomerular Filtration Rate 11.9 mL/min (>60) Glucose Level 117 MG/DL (74-106) H Calcium Level 8.4 MG/DL (8.5-10.1) L Total Bilirubin 2.8 MG/DL (0.2-1.0) H Direct Bilirubin 1.9 MG/DL (0.0-0.3) H Aspartate Amino Transf (AST/SGOT) 72 U/L (15-37) H Alanine Aminotransferase (ALT/SGPT) 35 U/L (12-78) Alkaline Phosphatase 112 U/L (46-116) Ammonia 135 umol/L (11-32) H Total Protein 5.9 G/DL (6.4-8.2) L Albumin 1.8 G/DL (3.4-5.0) L Globulin 4.1 g/dL Albumin/Globulin Ratio 0.4 (1.0-2.7) L Height (Feet): 5 Height (Inches): 3.00 Weight (Pounds): 308 General Appearance: lethargic Cardiovascular: normal rate Respiratory/Chest: normal breath sounds, no respiratory distress Abdominal Exam: soft Objective generalized edema Markus Lebron [employer] SAL[employer] ADVISOR Aug 26, 2018 10:57
--- NOTE | 2018-08-26 11:22 | Infectious Diseases Prog Note ---
Assessment/Plan Assessment/Plan The patient is a 38-year-old female with: 1. Probable sepsis, SP -Bcx neg 2. Leukocytosis; SP -CXR: Pulmonary vascular congestion with increased interstitial markings , likely representing interstitial edema. This appears improved relative to the chest x-ray from 07/22/18 3. Urinary tract infection, s/p Rx u/a wbc 60-80, nit+, leuk large; ucx ESBL K. pna ( R zosyn, S ertapenem), Citrobacter freundi (R ancef, I Impienem, S ertapenem) 4. History of hepatitis panel and HIV serology negative. 5. GIB -s/p EGD 08/19: esophageal varices 6. Afebrile. 7.Seizures episodes 08/24 (?related to carbapenem) 8. Acute renal insufficiency.; on HD -Renal US: unremarkable 9. Thrombocytopenia -. Alcoholic cirrhosis. -. Esophageal varices. PLAN: -Continue to monitor off abx -08/25 SP Ertapenem #7 -08/19 SP cefepime and Flagyl #3 -. Monitor BMP. -. Monitor cultures (blood).. -.Renal, GI f/u -seizure precautions- consider neuro eval -aspiration precautions Thank you, Dr. Chauncey Fuentes, for allowing me to see this patient. I will follow the patient with you during this hospitalization. Subjective Allergies: Coded Allergies: LORAZEPAM (Verified Allergy, Unknown, 05/21/18) PENICILLINS (Verified Allergy, Unknown, 05/21/18) Subjective afebrile no leukocytosis transferred to ICU on 08/24 due to several episoes of seizures Objective Vital Signs Last 24 Hour Vital Signs Date Time Temp Pulse Resp B/P (MAP) Pulse Ox O2 Delivery O2 Flow Rate FiO2 08/26/18 11:00 72 14 96/52 (67) 100 08/26/18 10:00 71 14 94/54 (67) 100 08/26/18 09:00 71 14 94/54 (67) 100 08/26/18 08:00 71 08/26/18 08:00 98.6 74 18 92/52 (65) 100 98.6 08/26/18 08:00 Nasal Cannula 4.0 08/26/18 07:00 71 21 97/48 (64) 100 08/26/18 06:00 68 18 92/52 (65) 100 08/26/18 05:00 71 23 90/45 (60) 100 08/26/18 04:03 76 08/26/18 04:00 Nasal Cannula 4.0 08/26/18 04:00 97.6 72 14 97/40 (59) 100 97.6 08/26/18 03:00 72 14 99/49 (66) 100 08/26/18 02:00 74 13 92/39 (56) 100 08/26/18 01:00 84 14 98/44 (62) 100 08/26/18 00:19 85 08/26/18 00:00 Nasal Cannula 4.0 08/26/18 00:00 97.8 83 17 104/53 (70) 100 97.8 08/25/18 23:00 78 13 93/72 (79) 100 08/25/18 22:00 77 13 94/46 (62) 100 08/25/18 21:00 76 13 92/41 (58) 100 08/25/18 20:06 75 08/25/18 20:00 98.6 77 14 93/41 (58) 100 98.6 08/25/18 20:00 Nasal Cannula 4.0 08/25/18 19:12 Nasal Cannula 2.0 28 08/25/18 19:12 98 Nasal Cannula 2.0 28 08/25/18 19:00 75 14 94/49 (64) 100 08/25/18 18:00 77 14 89/55 (66) 100 08/25/18 17:00 74 14 93/39 (57) 100 08/25/18 16:00 76 08/25/18 16:00 97.7 80 16 96/47 (63) 100 97.7 08/25/18 16:00 Nasal Cannula 4.0 08/25/18 15:00 76 13 91/43 (59) 100 08/25/18 14:00 76 13 93/44 (60) 100 08/25/18 13:00 75 13 92/38 (56) 100 08/25/18 12:00 Nasal Cannula 4.0 08/25/18 12:00 75 08/25/18 12:00 76 11 94/44 (61) 100 Height (Feet): 5 Height (Inches): 3.00 Weight (Pounds): 308 Objective HEENT: No pale conjunctivae. CHEST: Clear. HEART: S1 and S2. ABDOMEN: Obese and nontender. EXTREMITIES: No cyanosis at this time. There is no edema. NEUROLOGIC: Awake, but lethargic. Laboratory Tests Test 08/26/18 04:53 White Blood Count 6.8 K/UL (4.8-10.8) Red Blood Count 2.29 M/UL (4.20-5.40) L Hemoglobin 7.3 G/DL (12.0-16.0) L Hematocrit 21.9 % (37.0-47.0) L Mean Corpuscular Volume 96 FL (80-99) Mean Corpuscular Hemoglobin 31.9 PG (27.0-31.0) H Mean Corpuscular Hemoglobin Concent 33.3 G/DL (32.0-36.0) Red Cell Distribution Width 17.7 % (11.6-14.8) H Platelet Count 20 K/UL (150-450) L Mean Platelet Volume 12.1 FL (6.5-10.1) H Neutrophils (%) (Auto) % (45.0-75.0) Lymphocytes (%) (Auto) % (20.0-45.0) Monocytes (%) (Auto) % (1.0-10.0) Eosinophils (%) (Auto) % (0.0-3.0) Basophils (%) (Auto) % (0.0-2.0) Differential Total Cells Counted 100 Neutrophils % (Manual) 62 % (45-75) Lymphocytes % (Manual) 24 % (20-45) Monocytes % (Manual) 10 % (1-10) Eosinophils % (Manual) 3 % (0-3) Basophils % (Manual) 0 % (0-2) Band Neutrophils 1 % (0-8) Platelet Estimate Decreased L Platelet Morphology Normal Hypochromasia 1+ Anisocytosis 1+ Prothrombin Time 17.1 SEC (9.30-11.50) H Prothromb Time International Ratio 1.7 (0.9-1.1) H Sodium Level 144 MMOL/L (136-145) Potassium Level 3.3 MMOL/L (3.5-5.1) L Chloride Level 108 MMOL/L (98-107) H Carbon Dioxide Level 25 MMOL/L (21-32) Anion Gap 11 mmol/L (5-15) Blood Urea Nitrogen 47 mg/dL (7-18) H Creatinine 4.2 MG/DL (0.55-1.30) H Estimat Glomerular Filtration Rate 11.9 mL/min (>60) Glucose Level 117 MG/DL (74-106) H Calcium Level 8.4 MG/DL (8.5-10.1) L Total Bilirubin 2.8 MG/DL (0.2-1.0) H Direct Bilirubin 1.9 MG/DL (0.0-0.3) H Aspartate Amino Transf (AST/SGOT) 72 U/L (15-37) H Alanine Aminotransferase (ALT/SGPT) 35 U/L (12-78) Alkaline Phosphatase 112 U/L (46-116) Ammonia 135 umol/L (11-32) H Total Protein 5.9 G/DL (6.4-8.2) L Albumin 1.8 G/DL (3.4-5.0) L Globulin 4.1 g/dL Albumin/Globulin Ratio 0.4 (1.0-2.7) L Current Medications Medications (Trade) Dose Ordered Sig/Abner Route PRN Reason Start Time Stop Time Status Last Admin Dose Admin Al Hydroxide/Mg Hydroxide (Mylanta II) 30 ml Q6H PRN ORAL dyspepsia 08/24/18 20:30 09/23/18 20:29 Chlorhexidine Gluconate (Sierra-Hex 2%) 1 applic DAILY@2000 TOPIC 08/24/18 20:00 09/18/18 19:59 08/25/18 19:44 Dextrose (Dextrose 50%) 25 ml Q30M PRN IV Hypoglycemia 08/24/18 20:30 09/23/18 20:29 Dextrose (Dextrose 50%) 50 ml Q30M PRN IV Hypoglycemia 08/24/18 20:30 09/16/18 16:20 Ertapenem 0.5 gm/ Sodium Chloride 55 ml @ 110 mls/hr Q24H IVPB 08/25/18 14:00 08/26/18 13:59 08/25/18 14:00 Lactulose (Cephulac) 30 gm EVERY 6 HOURS ORAL 08/25/18 00:00 09/16/18 11:59 08/26/18 05:48 Lactulose (Cephulac) 60 gm THREE TIMES A DAY RECTAL 08/25/18 09:00 09/21/18 12:59 08/26/18 09:23 Lorazepam (Ativan 2mg/ml 1ml) 1 mg Q4H PRN IV For Anxiety or sz 08/24/18 20:30 08/31/18 20:29 08/26/18 00:34 Octreotide Acetate 500 mcg/ Sodium Chloride 500 ml @ 50 mls/hr Q10H IV 08/26/18 11:00 09/25/18 10:59 08/26/18 10:37 Ondansetron HCl (Zofran) 4 mg Q6H PRN IVP Nausea & Vomiting 08/24/18 20:30 09/23/18 20:29 Pantoprazole (Protonix) 40 mg Q12HR IVP 08/25/18 06:00 09/24/18 05:59 08/26/18 09:23 Polyethylene Glycol (Miralax) 17 gm HSPRN PRN ORAL Constipation 08/25/18 21:00 09/16/18 20:59 Stacy Perdomo M.D. Aug 26, 2018 11:22
--- NOTE | 2018-08-26 11:39 | General Progress Note ---
Assessment/Plan Problem List: (1) Edema ICD Codes: R60.9 - Edema, unspecified SNOMED: 604681288, 964267688 (2) Anemia ICD Codes: D64.9 - Anemia, unspecified SNOMED: 041072441 (3) Alcoholic cirrhosis ICD Codes: K70.30 - Alcoholic cirrhosis of liver without ascites SNOMED: 762895434 (4) Esophageal varices ICD Codes: I85.00 - Esophageal varices without bleeding SNOMED: 52383871 (5) Leukocytosis ICD Codes: D72.829 - Elevated white blood cell count, unspecified SNOMED: 855860362, 720937636 (6) GI bleed ICD Codes: K92.2 - Gastrointestinal hemorrhage, unspecified SNOMED: 54205151 (7) LENI (acute kidney injury) ICD Codes: N17.9 - Acute kidney failure, unspecified SNOMED: 28850097 (8) Sepsis ICD Codes: A41.9 - Sepsis, unspecified organism SNOMED: 00128187 (9) Seizure ICD Codes: R56.9 - Unspecified convulsions SNOMED: 95922864 Assessment/Plan abx oe pulm tx transfuse prn gi heme f/u dialysis prn seizure control cbc bmp am promise ltach if clear Subjective Constitutional: Reports: weakness Allergies: Coded Allergies: LORAZEPAM (Verified Allergy, Unknown, 05/21/18) PENICILLINS (Verified Allergy, Unknown, 05/21/18) All Systems: reviewed and negative except above Subjective 02nc sleepy in icu Objective Last 24 Hour Vital Signs Date Time Temp Pulse Resp B/P (MAP) Pulse Ox O2 Delivery O2 Flow Rate FiO2 08/26/18 11:00 72 14 96/52 (67) 100 08/26/18 10:00 71 14 94/54 (67) 100 08/26/18 09:00 71 14 94/54 (67) 100 08/26/18 08:00 71 08/26/18 08:00 98.6 74 18 92/52 (65) 100 98.6 08/26/18 08:00 Nasal Cannula 4.0 08/26/18 07:00 71 21 97/48 (64) 100 08/26/18 06:00 68 18 92/52 (65) 100 08/26/18 05:00 71 23 90/45 (60) 100 08/26/18 04:03 76 10/15/18 04:00 Nasal Cannula 4.0 08/26/18 04:00 97.6 72 14 97/40 (59) 100 97.6 08/26/18 03:00 72 14 99/49 (66) 100 08/26/18 02:00 74 13 92/39 (56) 100 08/26/18 01:00 84 14 98/44 (62) 100 08/26/18 00:19 85 08/26/18 00:00 Nasal Cannula 4.0 08/26/18 00:00 97.8 83 17 104/53 (70) 100 97.8 08/25/18 23:00 78 13 93/72 (79) 100 08/25/18 22:00 77 13 94/46 (62) 100 08/25/18 21:00 76 13 92/41 (58) 100 08/25/18 20:06 75 08/25/18 20:00 98.6 77 14 93/41 (58) 100 98.6 08/25/18 20:00 Nasal Cannula 4.0 08/25/18 19:12 Nasal Cannula 2.0 28 08/25/18 19:12 98 Nasal Cannula 2.0 28 08/25/18 19:00 75 14 94/49 (64) 100 08/25/18 18:00 77 14 89/55 (66) 100 08/25/18 17:00 74 14 93/39 (57) 100 08/25/18 16:00 76 08/25/18 16:00 97.7 80 16 96/47 (63) 100 97.7 08/25/18 16:00 Nasal Cannula 4.0 08/25/18 15:00 76 13 91/43 (59) 100 08/25/18 14:00 76 13 93/44 (60) 100 08/25/18 13:00 75 13 92/38 (56) 100 08/25/18 12:00 Nasal Cannula 4.0 08/25/18 12:00 75 08/25/18 12:00 76 11 94/44 (61) 100 Intake and Output 08/25/18 08/26/18 19:00 07:00 Intake Total 305 ml 160 ml Output Total 240 ml 340 ml Balance 65 ml -180 ml IV Total 55 ml Blood Product 250 ml Other 160 ml Output Urine Total 40 ml 40 ml Stool Total 200 ml 300 ml Laboratory Tests 08/26/18 04:53: White Blood Count 6.8, Red Blood Count 2.29L, Hemoglobin 7.3L, Hematocrit 21.9L , Mean Corpuscular Volume 96, Mean Corpuscular Hemoglobin 31.9H, Mean Corpuscular Hemoglobin Concent 33.3, Red Cell Distribution Width 17.7H, Platelet Count 20L, Mean Platelet Volume 12.1H, Neutrophils (%) (Auto) , Lymphocytes (%) (Auto) , Monocytes (%) (Auto) , Eosinophils (%) (Auto) , Basophils (%) (Auto) , Differential Total Cells Counted 100, Neutrophils % ( Manual) 62, Lymphocytes % (Manual) 24, Monocytes % (Manual) 10, Eosinophils % ( Manual) 3, Basophils % (Manual) 0, Band Neutrophils 1, Platelet Estimate DecreasedL, Platelet Morphology Normal, Hypochromasia 1+, Anisocytosis 1+, Prothrombin Time 17.1H, Prothromb Time International Ratio 1.7H, Sodium Level 144, Potassium Level 3.3L, Chloride Level 108H, Carbon Dioxide Level 25, Anion Gap 11, Blood Urea Nitrogen 47H, Creatinine 4.2H, Estimat Glomerular Filtration Rate 11.9, Glucose Level 117H, Calcium Level 8.4L, Total Bilirubin 2.8H, Direct Bilirubin 1.9H, Aspartate Amino Transf (AST/SGOT) 72H, Alanine Aminotransferase (ALT/SGPT) 35, Alkaline Phosphatase 112, Ammonia 135H, Total Protein 5.9L, Albumin 1.8L, Globulin 4.1, Albumin/Globulin Ratio 0.4L Height (Feet): 5 Height (Inches): 3.00 Weight (Pounds): 308 General Appearance: lethargic EENT: normal ENT inspection Neck: normal alignment Cardiovascular: normal peripheral pulses, normal rate, regular rhythm Respiratory/Chest: chest wall non-tender, lungs clear, normal breath sounds Abdomen: normal bowel sounds, non tender, soft Extremities: normal inspection Edema: 1+ Arm (L), 1+ Arm (R), 1+ Leg (L), 1+ Leg (R), 1+ Pedal (L), 1+ Pedal ( R), 1+ Generalized Edema: trace edema Neurologic: motor weakness Skin: normal pigmentation, warm/dry Chauncey Fuentes DO Aug 26, 2018 11:39
--- NOTE | 2018-08-26 16:18 | Diagnostic Imaging Report ---
Indication: Feeding tube placement Comparison: None Single view of the abdomen obtained Findings: There is a weighted feeding tube projected over the stomach. This is in the proximal stomach. IMPRESSION: Weighted feeding tube in the proximal stomach
[2018-08-26] MEDS: Dyna-Hex 2% Top Sol 2oz TOPIC SCH (19:40)
[2018-08-27] VITALS (24 sets, daily range): BP systolic 95–123; BP diastolic 43–64
[2018-08-27 05:20] LABS: HEMATOCRIT 22.1 % (37.0-47.0); HEMOGLOBIN 7.4 G/DL (12.0-16.0); MEAN CORPUSCULAR VOLUME 96 FL (80-99); PLATELET COUNT 26 K/UL (150-450); RED CELL DISTRIBUTION WIDTH 17.6 % (11.6-14.8); WHITE BLOOD COUNT 7.7 K/UL (4.8-10.8)
[2018-08-27 05:42] LABS: ALANINE AMINOTRANSFERASE 36 U/L (12-78); ALBUMIN 1.8 G/DL (3.4-5.0); ALBUMIN/GLOBULIN RATIO 0.4 (1.0-2.7); ALKALINE PHOSPHATASE 119 U/L (46-116); ANION GAP 10 mmol/L (5-15); ASPARTATE AMINO TRANSFERASE 73 U/L (15-37); BILIRUBIN,TOTAL 2.7 MG/DL (0.2-1.0); BLOOD UREA NITROGEN 46 mg/dL (7-18); CALCIUM 8.5 MG/DL (8.5-10.1); CARBON DIOXIDE 24 MMOL/L (21-32); CHLORIDE 109 MMOL/L (98-107); CREATININE 4.3 MG/DL (0.55-1.30); POTASSIUM 3.4 MMOL/L (3.5-5.1); SODIUM 143 MMOL/L (136-145)
[2018-08-27 05:54] LABS: BILIRUBIN,DIRECT 1.9 MG/DL (0.0-0.3)
[2018-08-27] MEDS: Lactulose 20gm/30ml UDC ORAL SCH ×3 (05:59→17:34)
[2018-08-27 06:12] LABS: PHOSPHORUS 4.7 MG/DL (2.5-4.9)
[2018-08-27] MEDS: Octreotide Acetate 500 MCG in Sodium Chloride 500ML 499 ML IV SCH ×2 (06:33→17:35)
[2018-08-27 06:58] LABS: INR 1.7 (0.9-1.1)
--- NOTE | 2018-08-27 08:15 | Nephrology Progress Note ---
Assessment/Plan Assessment/Plan 1. LENI- multifact ATN ( hypotension/intravasc vol dep/?hepatorenal/Anemia) - HD today with 1 L UF and monitor BP 2. Hypok+- replace today 3. Hepatic Failure- poor prognosis - alcohol. Consider terminal care 4. Met Acidosis- AG/Lactic, resolved 5. GI Bleed/Anemia- per GI mgmt, Octreotide Overall high mortality and very poor prognosis. Consider hospice comfort care at this point Subjective Date patient seen: Aug 27, 2018 Time patient seen: 08:14 ROS Limited/Unobtainable: Yes Allergies: Coded Allergies: LORAZEPAM (Verified Allergy, Unknown, 05/21/18) PENICILLINS (Verified Allergy, Unknown, 05/21/18) Subjective Patient confused and lethargic Objective Last 24 Hour Vital Signs Date Time Temp Pulse Resp B/P (MAP) Pulse Ox O2 Delivery O2 Flow Rate FiO2 08/27/18 07:00 73 13 104/55 (71) 100 08/27/18 06:00 80 18 105/56 (72) 100 08/27/18 05:00 80 18 105/57 (73) 100 08/27/18 04:00 97.7 78 14 102/52 (69) 100 97.7 08/27/18 04:00 78 08/27/18 04:00 Nasal Cannula 4.0 08/27/18 03:00 75 18 99/51 (67) 100 08/27/18 02:00 73 23 101/58 (72) 100 08/27/18 01:00 73 22 95/52 (66) 100 08/27/18 00:00 72 08/27/18 00:00 97.8 72 14 99/53 (68) 100 97.8 08/27/18 00:00 Nasal Cannula 4.0 08/26/18 23:00 73 15 100/56 (71) 100 08/26/18 22:00 76 16 97/58 (71) 100 08/26/18 21:00 74 14 100/55 (70) 100 08/26/18 20:00 82 08/26/18 20:00 98.0 73 14 94/59 (71) 100 98.0 08/26/18 20:00 Nasal Cannula 4.0 08/26/18 19:18 Nasal Cannula 2.0 28 08/26/18 19:17 100 Nasal Cannula 2.0 28 08/26/18 18:00 73 14 94/59 (71) 100 08/26/18 17:00 97.9 72 13 105/55 (72) 100 97.9 08/26/18 16:00 Nasal Cannula 4.0 08/26/18 16:00 71 08/26/18 16:00 73 14 102/51 (68) 100 08/26/18 15:00 72 14 103/50 (67) 100 08/26/18 14:00 72 14 110/57 (74) 100 08/26/18 13:00 73 14 106/60 (75) 100 08/26/18 13:00 73 14 106/60 (75) 100 08/26/18 12:00 97.7 74 14 99/46 (63) 100 97.7 08/26/18 12:00 Nasal Cannula 4.0 08/26/18 12:00 71 08/26/18 11:00 72 14 96/52 (67) 100 08/26/18 10:00 71 14 94/54 (67) 100 08/26/18 09:00 71 14 94/54 (67) 100 Intake and Output 08/26/18 08/27/18 19:00 07:00 Intake Total 440 ml 900 ml Output Total 240 ml 475 ml Balance 200 ml 425 ml IV Total 400 ml 600 ml Tube Feeding 140 ml Other 40 ml 160 ml Output Urine Total 40 ml 75 ml Stool Total 200 ml 400 ml Laboratory Tests 08/27/18 04:45: White Blood Count 7.7, Red Blood Count 2.30L, Hemoglobin 7.4L, Hematocrit 22.1L , Mean Corpuscular Volume 96, Mean Corpuscular Hemoglobin 32.0H, Mean Corpuscular Hemoglobin Concent 33.3, Red Cell Distribution Width 17.6H, Platelet Count 26L, Mean Platelet Volume 9.2, Neutrophils (%) (Auto) , Lymphocytes (%) (Auto) , Monocytes (%) (Auto) , Eosinophils (%) (Auto) , Basophils (%) (Auto) , Differential Total Cells Counted 100, Neutrophils % ( Manual) 74, Lymphocytes % (Manual) 18L, Monocytes % (Manual) 7, Eosinophils % ( Manual) 1, Basophils % (Manual) 0, Band Neutrophils 0, Platelet Estimate DecreasedL, Platelet Morphology Normal, Hypochromasia 3+, Anisocytosis 1+, Spherocytes 1+, Prothrombin Time 17.3H, Prothromb Time International Ratio 1.7H , Activated Partial Thromboplast Time 39H, Sodium Level 143, Potassium Level 3.4L, Chloride Level 109H, Carbon Dioxide Level 24, Anion Gap 10, Blood Urea Nitrogen 46H, Creatinine 4.3H, Estimat Glomerular Filtration Rate 11.6, Glucose Level 127H, Calcium Level 8.5, Phosphorus Level 4.7, Magnesium Level 1.6L, Total Bilirubin 2.7H, Direct Bilirubin 1.9H, Aspartate Amino Transf (AST/SGOT) 73H, Alanine Aminotransferase (ALT/SGPT) 36, Alkaline Phosphatase 119H, Total Protein 6.2L, Albumin 1.8L, Globulin 4.4, Albumin/Globulin Ratio 0.4L Height (Feet): 5 Height (Inches): 3.00 Weight (Pounds): 307 General Appearance: lethargic, confused Neck: normal alignment, supple Cardiovascular: normal rate, regular rhythm Respiratory/Chest: rhonchi - bilaterally Abdomen: distended Edema: 4+ Arm (L), 4+ Arm (R), 4+ Leg (L), 4+ Leg (R), 4+ Pedal (L), 4+ Pedal ( R), 4+ Generalized Amos Pinon MD Aug 27, 2018 08:15
--- NOTE | 2018-08-27 09:15 | Pulmonolgy Critical Care Note ---
Critical Care - Asmt/Plan Problems: (1) Acute encephalopathy (2) ATN (acute tubular necrosis) (3) Sepsis (4) Hemorrhagic shock (5) Coagulopathy (6) End stage liver disease (7) Alcoholic cirrhosis (8) Ascites (9) Hypotension (10) Chronic renal insufficiency Respiratory: monitor respiratory rate, adjust FIO2 Cardiac: continue to monitor HR/BP Renal: F/U I&O Infectious Disease: check cultures Gastrointestinal: continue feedings/current rate Endocrine: check HgA1C, continue sliding scale insulin Hematologic: monitor H/H, transfuse if hgb<8.5 Neurologic: PRN Morphine, keep patient comfortable Prophylaxis: Protonix Disposition: keep in ICU 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, 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, 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 with: nurses, consultants, telephonic case managersales operations manager - Objective Last 24 Hour Vital Signs Date Time Temp Pulse Resp B/P (MAP) Pulse Ox O2 Delivery O2 Flow Rate FiO2 08/27/18 07:00 73 13 104/55 (71) 100 08/27/18 06:00 80 18 105/56 (72) 100 08/27/18 05:00 80 18 105/57 (73) 100 08/27/18 04:00 97.7 78 14 102/52 (69) 100 97.7 08/27/18 04:00 78 08/27/18 04:00 Nasal Cannula 4.0 08/27/18 03:00 75 18 99/51 (67) 100 08/27/18 02:00 73 23 101/58 (72) 100 08/27/18 01:00 73 22 95/52 (66) 100 08/27/18 00:00 72 08/27/18 00:00 97.8 72 14 99/53 (68) 100 97.8 08/27/18 00:00 Nasal Cannula 4.0 08/26/18 23:00 73 15 100/56 (71) 100 08/26/18 22:00 76 16 97/58 (71) 100 08/26/18 21:00 74 14 100/55 (70) 100 08/26/18 20:00 82 08/26/18 20:00 98.0 73 14 94/59 (71) 100 98.0 08/26/18 20:00 Nasal Cannula 4.0 08/26/18 19:18 Nasal Cannula 2.0 28 08/26/18 19:17 100 Nasal Cannula 2.0 28 08/26/18 18:00 73 14 94/59 (71) 100 08/26/18 17:00 97.9 72 13 105/55 (72) 100 97.9 08/26/18 16:00 Nasal Cannula 4.0 08/26/18 16:00 71 08/26/18 16:00 73 14 102/51 (68) 100 08/26/18 15:00 72 14 103/50 (67) 100 08/26/18 14:00 72 14 110/57 (74) 100 08/26/18 13:00 73 14 106/60 (75) 100 08/26/18 13:00 73 14 106/60 (75) 100 08/26/18 12:00 97.7 74 14 99/46 (63) 100 97.7 08/26/18 12:00 Nasal Cannula 4.0 08/26/18 12:00 71 08/26/18 11:00 72 14 96/52 (67) 100 08/26/18 10:00 71 14 94/54 (67) 100 Status: somnolent Condition: critical HEENT: atraumatic Neck: full ROM Heart: HR/BP stable Abdomen: soft, active bowel sounds Extremities: no C/C/E, edema Critical Care - Subjective ROS Limited/Unobtainable: Yes Condition: critical EKG Rhythm: Sinus Rhythm FI02: 28 Sputum Amount: None Tube Feeding Amount: 20 I&O: Intake and Output 08/26/18 08/27/18 19:00 07:00 Intake Total 440 ml 900 ml Output Total 240 ml 475 ml Balance 200 ml 425 ml IV Total 400 ml 600 ml Tube Feeding 140 ml Other 40 ml 160 ml Output Urine Total 40 ml 75 ml Stool Total 200 ml 400 ml Labs: Laboratory Tests Test 08/27/18 04:45 White Blood Count 7.7 K/UL (4.8-10.8) Red Blood Count 2.30 M/UL (4.20-5.40) L Hemoglobin 7.4 G/DL (12.0-16.0) L Hematocrit 22.1 % (37.0-47.0) L Mean Corpuscular Volume 96 FL (80-99) Mean Corpuscular Hemoglobin 32.0 PG (27.0-31.0) H Mean Corpuscular Hemoglobin Concent 33.3 G/DL (32.0-36.0) Red Cell Distribution Width 17.6 % (11.6-14.8) H Platelet Count 26 K/UL (150-450) L Mean Platelet Volume 9.2 FL (6.5-10.1) Neutrophils (%) (Auto) % (45.0-75.0) Lymphocytes (%) (Auto) % (20.0-45.0) Monocytes (%) (Auto) % (1.0-10.0) Eosinophils (%) (Auto) % (0.0-3.0) Basophils (%) (Auto) % (0.0-2.0) Differential Total Cells Counted 100 Neutrophils % (Manual) 74 % (45-75) Lymphocytes % (Manual) 18 % (20-45) L Monocytes % (Manual) 7 % (1-10) Eosinophils % (Manual) 1 % (0-3) Basophils % (Manual) 0 % (0-2) Band Neutrophils 0 % (0-8) Platelet Estimate Decreased L Platelet Morphology Normal Hypochromasia 3+ Anisocytosis 1+ Spherocytes 1+ Prothrombin Time 17.3 SEC (9.30-11.50) H Prothromb Time International Ratio 1.7 (0.9-1.1) H Activated Partial Thromboplast Time 39 SEC (23-33) H Sodium Level 143 MMOL/L (136-145) Potassium Level 3.4 MMOL/L (3.5-5.1) L Chloride Level 109 MMOL/L (98-107) H Carbon Dioxide Level 24 MMOL/L (21-32) Anion Gap 10 mmol/L (5-15) Blood Urea Nitrogen 46 mg/dL (7-18) H Creatinine 4.3 MG/DL (0.55-1.30) H Estimat Glomerular Filtration Rate 11.6 mL/min (>60) Glucose Level 127 MG/DL (74-106) H Calcium Level 8.5 MG/DL (8.5-10.1) Phosphorus Level 4.7 MG/DL (2.5-4.9) Magnesium Level 1.6 MG/DL (1.8-2.4) L Total Bilirubin 2.7 MG/DL (0.2-1.0) H Direct Bilirubin 1.9 MG/DL (0.0-0.3) H Aspartate Amino Transf (AST/SGOT) 73 U/L (15-37) H Alanine Aminotransferase (ALT/SGPT) 36 U/L (12-78) Alkaline Phosphatase 119 U/L (46-116) H Total Protein 6.2 G/DL (6.4-8.2) L Albumin 1.8 G/DL (3.4-5.0) L Globulin 4.4 g/dL Albumin/Globulin Ratio 0.4 (1.0-2.7) L Jose Roberto Burleson MD Aug 27, 2018 09:15
[2018-08-27] MEDS ORDERED: Heparin 2000 units/Ns 1000ml IV PRN (09:23)
[2018-08-27] MEDS ORDERED: Lidocaine 1% Plain 30 ml INJ PRN (09:30)
[2018-08-27] MEDS: Pantoprazole Inj IVP SCH ×2 (10:33→20:46)
--- NOTE | 2018-08-27 11:10 | Infectious Diseases Prog Note ---
Assessment/Plan Assessment/Plan The patient is a 38-year-old female with: 1. Probable sepsis, SP -Bcx neg 2. Leukocytosis; SP -CXR: Pulmonary vascular congestion with increased interstitial markings , likely representing interstitial edema. This appears improved relative to the chest x-ray from 07/22/18 3. Urinary tract infection, s/p Rx u/a wbc 60-80, nit+, leuk large; ucx ESBL K. pna ( R zosyn, S ertapenem), Citrobacter freundi (R ancef, I Impienem, S ertapenem) 4. History of hepatitis panel and HIV serology negative. 5. GIB -s/p EGD 08/19: esophageal varices 6. Afebrile. 7.Seizures episodes 08/24 (?related to carbapenem) 8. Acute renal insufficiency.; on HD -Renal US: unremarkable 9. Thrombocytopenia -. Alcoholic cirrhosis. -. Esophageal varices. PLAN: -Continue to monitor off abx -08/25 SP Ertapenem #7 -08/19 SP cefepime and Flagyl #3 -. Monitor BMP. -. Monitor cultures (blood).. -.Renal, GI f/u -seizure precautions- consider neuro eval -aspiration precautions Thank you, Dr. Chauncey Fuentes, for allowing me to see this patient. I will follow the patient with you during this hospitalization. Subjective Allergies: Coded Allergies: LORAZEPAM (Verified Allergy, Unknown, 05/21/18) PENICILLINS (Verified Allergy, Unknown, 05/21/18) Subjective afebrile no leukocytosis remains off abx Objective Vital Signs Last 24 Hour Vital Signs Date Time Temp Pulse Resp B/P (MAP) Pulse Ox O2 Delivery O2 Flow Rate FiO2 08/27/18 07:00 73 13 104/55 (71) 100 08/27/18 06:00 80 18 105/56 (72) 100 08/27/18 05:00 80 18 105/57 (73) 100 08/27/18 04:00 97.7 78 14 102/52 (69) 100 97.7 08/27/18 04:00 78 08/27/18 04:00 Nasal Cannula 4.0 08/27/18 03:00 75 18 99/51 (67) 100 08/27/18 02:00 73 23 101/58 (72) 100 08/27/18 01:00 73 22 95/52 (66) 100 08/27/18 00:00 72 08/27/18 00:00 97.8 72 14 99/53 (68) 100 97.8 08/27/18 00:00 Nasal Cannula 4.0 08/26/18 23:00 73 15 100/56 (71) 100 08/26/18 22:00 76 16 97/58 (71) 100 08/26/18 21:00 74 14 100/55 (70) 100 08/26/18 20:00 82 08/26/18 20:00 98.0 73 14 94/59 (71) 100 98.0 08/26/18 20:00 Nasal Cannula 4.0 08/26/18 19:18 Nasal Cannula 2.0 28 08/26/18 19:17 100 Nasal Cannula 2.0 28 08/26/18 18:00 73 14 94/59 (71) 100 08/26/18 17:00 97.9 72 13 105/55 (72) 100 97.9 08/26/18 16:00 Nasal Cannula 4.0 08/26/18 16:00 71 08/26/18 16:00 73 14 102/51 (68) 100 08/26/18 15:00 72 14 103/50 (67) 100 08/26/18 14:00 72 14 110/57 (74) 100 08/26/18 13:00 73 14 106/60 (75) 100 08/26/18 13:00 73 14 106/60 (75) 100 08/26/18 12:00 97.7 74 14 99/46 (63) 100 97.7 08/26/18 12:00 Nasal Cannula 4.0 08/26/18 12:00 71 Height (Feet): 5 Height (Inches): 3.00 Weight (Pounds): 307 Objective HEENT: No pale conjunctivae. CHEST: Clear. HEART: S1 and S2. ABDOMEN: Obese and nontender. EXTREMITIES: No cyanosis at this time. There is no edema. NEUROLOGIC: Awake, but lethargic. Laboratory Tests Test 08/27/18 04:45 White Blood Count 7.7 K/UL (4.8-10.8) Red Blood Count 2.30 M/UL (4.20-5.40) L Hemoglobin 7.4 G/DL (12.0-16.0) L Hematocrit 22.1 % (37.0-47.0) L Mean Corpuscular Volume 96 FL (80-99) Mean Corpuscular Hemoglobin 32.0 PG (27.0-31.0) H Mean Corpuscular Hemoglobin Concent 33.3 G/DL (32.0-36.0) Red Cell Distribution Width 17.6 % (11.6-14.8) H Platelet Count 26 K/UL (150-450) L Mean Platelet Volume 9.2 FL (6.5-10.1) Neutrophils (%) (Auto) % (45.0-75.0) Lymphocytes (%) (Auto) % (20.0-45.0) Monocytes (%) (Auto) % (1.0-10.0) Eosinophils (%) (Auto) % (0.0-3.0) Basophils (%) (Auto) % (0.0-2.0) Differential Total Cells Counted 100 Neutrophils % (Manual) 74 % (45-75) Lymphocytes % (Manual) 18 % (20-45) L Monocytes % (Manual) 7 % (1-10) Eosinophils % (Manual) 1 % (0-3) Basophils % (Manual) 0 % (0-2) Band Neutrophils 0 % (0-8) Platelet Estimate Decreased L Platelet Morphology Normal Hypochromasia 3+ Anisocytosis 1+ Spherocytes 1+ Prothrombin Time 17.3 SEC (9.30-11.50) H Prothromb Time International Ratio 1.7 (0.9-1.1) H Activated Partial Thromboplast Time 39 SEC (23-33) H Sodium Level 143 MMOL/L (136-145) Potassium Level 3.4 MMOL/L (3.5-5.1) L Chloride Level 109 MMOL/L (98-107) H Carbon Dioxide Level 24 MMOL/L (21-32) Anion Gap 10 mmol/L (5-15) Blood Urea Nitrogen 46 mg/dL (7-18) H Creatinine 4.3 MG/DL (0.55-1.30) H Estimat Glomerular Filtration Rate 11.6 mL/min (>60) Glucose Level 127 MG/DL (74-106) H Calcium Level 8.5 MG/DL (8.5-10.1) Phosphorus Level 4.7 MG/DL (2.5-4.9) Magnesium Level 1.6 MG/DL (1.8-2.4) L Total Bilirubin 2.7 MG/DL (0.2-1.0) H Direct Bilirubin 1.9 MG/DL (0.0-0.3) H Aspartate Amino Transf (AST/SGOT) 73 U/L (15-37) H Alanine Aminotransferase (ALT/SGPT) 36 U/L (12-78) Alkaline Phosphatase 119 U/L (46-116) H Total Protein 6.2 G/DL (6.4-8.2) L Albumin 1.8 G/DL (3.4-5.0) L Globulin 4.4 g/dL Albumin/Globulin Ratio 0.4 (1.0-2.7) L Current Medications Medications (Trade) Dose Ordered Sig/Abner Route PRN Reason Start Time Stop Time Status Last Admin Dose Admin Al Hydroxide/Mg Hydroxide (Mylanta II) 30 ml Q6H PRN ORAL dyspepsia 08/24/18 20:30 09/23/18 20:29 Chlorhexidine Gluconate (Sierra-Hex 2%) 1 applic DAILY@2000 TOPIC 08/24/18 20:00 09/18/18 19:59 08/26/18 19:40 Dextrose (Dextrose 50%) 25 ml Q30M PRN IV Hypoglycemia 08/24/18 20:30 09/23/18 20:29 Dextrose (Dextrose 50%) 50 ml Q30M PRN IV Hypoglycemia 08/24/18 20:30 09/16/18 16:20 Heparin Sodium/ Sodium Chloride (Heparin 2000 units/Ns 1000ml premix) 2,000 unit ONCE PRN IV PICC 08/27/18 09:23 08/27/18 23:59 Lactulose (Cephulac) 30 gm EVERY 6 HOURS ORAL 08/25/18 00:00 09/16/18 11:59 08/27/18 05:59 Lidocaine HCl (Xylocaine 1% 30ml) 30 ml ONCE PRN INJ PICC 08/27/18 09:30 08/27/18 23:59 Lorazepam (Ativan 2mg/ml 1ml) 1 mg Q4H PRN IV For Anxiety or sz 08/24/18 20:30 08/31/18 20:29 08/26/18 00:34 Octreotide Acetate 500 mcg/ Sodium Chloride 500 ml @ 50 mls/hr Q10H IV 08/26/18 11:00 09/25/18 10:59 08/27/18 06:33 Ondansetron HCl (Zofran) 4 mg Q6H PRN IVP Nausea & Vomiting 08/24/18 20:30 09/23/18 20:29 Pantoprazole (Protonix) 40 mg Q12HR IVP 08/25/18 06:00 09/24/18 05:59 08/27/18 10:33 Rifaximin (Xifaxan) 550 mg EVERY 12 HOURS ORAL 08/27/18 09:00 09/03/18 08:59 08/27/18 10:33 Stacy Perdomo M.D. Aug 27, 2018 11:10
--- NOTE | 2018-08-27 12:24 | Diagnostic Imaging Report ---
Indications: Needs long-term IV access Technique: Procedure performed at bedside. Procedural timeout performed. Ultrasound confirms patent compressible left basilic vein. Total sterile technique, including sterile probe cover and sterile gel, sterile gloves, hand hygiene, hat, mask,, sterile gown, large sterile drape, and preparation with 2% chlorhexidine utilized. Local anesthesia with 1% lidocaine. Under real-time ultrasound guidance, puncture vein using 21-gauge needle, passage 0.018 guidewire, exchange for 5 Malay peel-away sheath. 5 Malay Bard dual-lumen power PICC cut to 46 cm. It was inserted through the peel-away sheath. Peel-away sheath and guidewire removed. Catheter fixed to the skin. Both catheter ports aspirated and flushed. Patient tolerated procedure well, without immediate complication. Followup chest x-ray obtained, documents catheter tip position at the deep right atrium. The catheter was pulled back, and a repeat radiograph obtained, demonstrating good catheter tip position at the cavoatrial junction Also noted on the chest radiograph is good position of weighted nasogastric feeding tube, tip at the level gastric body Impression: Successful bedside placement of left arm PICC under sonographic guidance, as described above. Incidental finding of satisfactorily positioned nasogastric weighted feeding tube
--- NOTE | 2018-08-27 13:39 | General Progress Note ---
Assessment/Plan Problem List: (1) Edema ICD Codes: R60.9 - Edema, unspecified SNOMED: 765071621, 167066247 (2) Anemia ICD Codes: D64.9 - Anemia, unspecified SNOMED: 728673290 (3) Alcoholic cirrhosis ICD Codes: K70.30 - Alcoholic cirrhosis of liver without ascites SNOMED: 007148839 (4) Esophageal varices ICD Codes: I85.00 - Esophageal varices without bleeding SNOMED: 38676316 (5) Leukocytosis ICD Codes: D72.829 - Elevated white blood cell count, unspecified SNOMED: 577330368, 587979154 (6) GI bleed ICD Codes: K92.2 - Gastrointestinal hemorrhage, unspecified SNOMED: 48595973 (7) LENI (acute kidney injury) ICD Codes: N17.9 - Acute kidney failure, unspecified SNOMED: 55128963 (8) Sepsis ICD Codes: A41.9 - Sepsis, unspecified organism SNOMED: 53561916 (9) Seizure ICD Codes: R56.9 - Unspecified convulsions SNOMED: 64866311 Status: unchanged Assessment/Plan abx oe pulm tx transfuse prn gi heme f/u dialysis prn seizure control cbc bmp am promise ltach if clear Subjective Constitutional: Reports: weakness Allergies: Coded Allergies: LORAZEPAM (Verified Allergy, Unknown, 05/21/18) PENICILLINS (Verified Allergy, Unknown, 05/21/18) All Systems: reviewed and negative except above Subjective 02nc sleepy in icu Objective Last 24 Hour Vital Signs Date Time Temp Pulse Resp B/P (MAP) Pulse Ox O2 Delivery O2 Flow Rate FiO2 08/27/18 12:02 Nasal Cannula 4.0 08/27/18 12:00 75 08/27/18 11:00 79 13 107/57 (74) 100 08/27/18 10:00 77 13 110/55 (73) 100 08/27/18 09:00 76 14 104/43 (63) 100 08/27/18 08:00 72 08/27/18 08:00 Nasal Cannula 4.0 08/27/18 08:00 97.6 74 13 101/57 (72) 100 97.6 08/27/18 07:00 73 13 104/55 (71) 100 08/27/18 06:00 80 18 105/56 (72) 100 08/27/18 05:00 80 18 105/57 (73) 100 08/27/18 04:00 97.7 78 14 102/52 (69) 100 97.7 08/27/18 04:00 78 08/27/18 04:00 Nasal Cannula 4.0 08/27/18 03:00 75 18 99/51 (67) 100 08/27/18 02:00 73 23 101/58 (72) 100 08/27/18 01:00 73 22 95/52 (66) 100 08/27/18 00:00 72 08/27/18 00:00 97.8 72 14 99/53 (68) 100 97.8 08/27/18 00:00 Nasal Cannula 4.0 08/26/18 23:00 73 15 100/56 (71) 100 08/26/18 22:00 76 16 97/58 (71) 100 08/26/18 21:00 74 14 100/55 (70) 100 08/26/18 20:00 82 08/26/18 20:00 98.0 73 14 94/59 (71) 100 98.0 08/26/18 20:00 Nasal Cannula 4.0 08/26/18 19:18 Nasal Cannula 2.0 28 08/26/18 19:17 100 Nasal Cannula 2.0 28 08/26/18 18:00 73 14 94/59 (71) 100 08/26/18 17:00 97.9 72 13 105/55 (72) 100 97.9 08/26/18 16:00 Nasal Cannula 4.0 08/26/18 16:00 71 08/26/18 16:00 73 14 102/51 (68) 100 08/26/18 15:00 72 14 103/50 (67) 100 08/26/18 14:00 72 14 110/57 (74) 100 Intake and Output 08/26/18 08/27/18 19:00 07:00 Intake Total 440 ml 900 ml Output Total 240 ml 475 ml Balance 200 ml 425 ml IV Total 400 ml 600 ml Tube Feeding 140 ml Other 40 ml 160 ml Output Urine Total 40 ml 75 ml Stool Total 200 ml 400 ml Laboratory Tests 08/27/18 04:45: White Blood Count 7.7, Red Blood Count 2.30L, Hemoglobin 7.4L, Hematocrit 22.1L , Mean Corpuscular Volume 96, Mean Corpuscular Hemoglobin 32.0H, Mean Corpuscular Hemoglobin Concent 33.3, Red Cell Distribution Width 17.6H, Platelet Count 26L, Mean Platelet Volume 9.2, Neutrophils (%) (Auto) , Lymphocytes (%) (Auto) , Monocytes (%) (Auto) , Eosinophils (%) (Auto) , Basophils (%) (Auto) , Differential Total Cells Counted 100, Neutrophils % ( Manual) 74, Lymphocytes % (Manual) 18L, Monocytes % (Manual) 7, Eosinophils % ( Manual) 1, Basophils % (Manual) 0, Band Neutrophils 0, Platelet Estimate DecreasedL, Platelet Morphology Normal, Hypochromasia 3+, Anisocytosis 1+, Spherocytes 1+, Prothrombin Time 17.3H, Prothromb Time International Ratio 1.7H , Activated Partial Thromboplast Time 39H, Sodium Level 143, Potassium Level 3.4L, Chloride Level 109H, Carbon Dioxide Level 24, Anion Gap 10, Blood Urea Nitrogen 46H, Creatinine 4.3H, Estimat Glomerular Filtration Rate 11.6, Glucose Level 127H, Calcium Level 8.5, Phosphorus Level 4.7, Magnesium Level 1.6L, Total Bilirubin 2.7H, Direct Bilirubin 1.9H, Aspartate Amino Transf (AST/SGOT) 73H, Alanine Aminotransferase (ALT/SGPT) 36, Alkaline Phosphatase 119H, Total Protein 6.2L, Albumin 1.8L, Globulin 4.4, Albumin/Globulin Ratio 0.4L Height (Feet): 5 Height (Inches): 3.00 Weight (Pounds): 307 General Appearance: lethargic EENT: normal ENT inspection Neck: normal alignment Cardiovascular: normal peripheral pulses, normal rate, regular rhythm Respiratory/Chest: chest wall non-tender, decreased breath sounds Abdomen: normal bowel sounds, non tender, soft Extremities: normal inspection Edema: 1+ Arm (L), 1+ Arm (R), 1+ Leg (L), 1+ Leg (R), 1+ Pedal (L), 1+ Pedal ( R), 1+ Generalized Edema: trace edema Neurologic: motor weakness Skin: normal pigmentation, warm/dry Chauncey FuentesOpal Aug 27, 2018 13:39
--- NOTE | 2018-08-27 13:43 | GI Progress Note ---
Assessment/Plan Problems: (1) Ascites ICD Codes: R18.8 - Other ascites SNOMED: 301998005 (2) Alcoholic cirrhosis ICD Codes: K70.30 - Alcoholic cirrhosis of liver without ascites SNOMED: 978381075 (3) Esophageal varices ICD Codes: I85.00 - Esophageal varices without bleeding SNOMED: 62557617 (4) Anemia ICD Codes: D64.9 - Anemia, unspecified SNOMED: 051002892 (5) Chronic renal insufficiency ICD Codes: N18.9 - Chronic kidney disease, unspecified SNOMED: 708748694 (6) Coagulopathy ICD Codes: D68.9 - Coagulation defect, unspecified SNOMED: 67439625 (7) Hemorrhagic shock ICD Codes: R57.8 - Other shock SNOMED: 195088 (8) GI bleed ICD Codes: K92.2 - Gastrointestinal hemorrhage, unspecified SNOMED: 69302588 Status: stable Status Narrative Discussed with Dr. Rodriguez. Assessment/Plan s/p EGD >> Esophageal varices, status post banding x7. dobhoff placed more awake and alert RECOMMENDATIONS: dc octreotide ppi BID transfuse prn lactulose + Xifaxan very poor prognosis fu labs The patient was seen and examined at bedside and all new and available data was reviewed in the patients chart. I agree with the above findings, impression and plan. (Patient seen earlier today. Signature stamp does not reflect patient encounter time.). - Christopher Rodriguez MD Subjective Subjective limited Objective Last 24 Hour Vital Signs Date Time Temp Pulse Resp B/P (MAP) Pulse Ox O2 Delivery O2 Flow Rate FiO2 08/27/18 12:02 Nasal Cannula 4.0 08/27/18 12:00 75 08/27/18 11:00 79 13 107/57 (74) 100 08/27/18 10:00 77 13 110/55 (73) 100 08/27/18 09:00 76 14 104/43 (63) 100 08/27/18 08:00 72 08/27/18 08:00 Nasal Cannula 4.0 08/27/18 08:00 97.6 74 13 101/57 (72) 100 97.6 08/27/18 07:00 73 13 104/55 (71) 100 08/27/18 06:00 80 18 105/56 (72) 100 08/27/18 05:00 80 18 105/57 (73) 100 08/27/18 04:00 97.7 78 14 102/52 (69) 100 97.7 08/27/18 04:00 78 08/27/18 04:00 Nasal Cannula 4.0 08/27/18 03:00 75 18 99/51 (67) 100 08/27/18 02:00 73 23 101/58 (72) 100 08/27/18 01:00 73 22 95/52 (66) 100 08/27/18 00:00 72 08/27/18 00:00 97.8 72 14 99/53 (68) 100 97.8 08/27/18 00:00 Nasal Cannula 4.0 08/26/18 23:00 73 15 100/56 (71) 100 08/26/18 22:00 76 16 97/58 (71) 100 08/26/18 21:00 74 14 100/55 (70) 100 08/26/18 20:00 82 08/26/18 20:00 98.0 73 14 94/59 (71) 100 98.0 08/26/18 20:00 Nasal Cannula 4.0 08/26/18 19:18 Nasal Cannula 2.0 28 08/26/18 19:17 100 Nasal Cannula 2.0 28 08/26/18 18:00 73 14 94/59 (71) 100 08/26/18 17:00 97.9 72 13 105/55 (72) 100 97.9 08/26/18 16:00 Nasal Cannula 4.0 08/26/18 16:00 71 08/26/18 16:00 73 14 102/51 (68) 100 08/26/18 15:00 72 14 103/50 (67) 100 08/26/18 14:00 72 14 110/57 (74) 100 Intake and Output 08/26/18 08/27/18 19:00 07:00 Intake Total 440 ml 900 ml Output Total 240 ml 475 ml Balance 200 ml 425 ml IV Total 400 ml 600 ml Tube Feeding 140 ml Other 40 ml 160 ml Output Urine Total 40 ml 75 ml Stool Total 200 ml 400 ml Laboratory Tests Test 08/27/18 04:45 White Blood Count 7.7 K/UL (4.8-10.8) Red Blood Count 2.30 M/UL (4.20-5.40) L Hemoglobin 7.4 G/DL (12.0-16.0) L Hematocrit 22.1 % (37.0-47.0) L Mean Corpuscular Volume 96 FL (80-99) Mean Corpuscular Hemoglobin 32.0 PG (27.0-31.0) H Mean Corpuscular Hemoglobin Concent 33.3 G/DL (32.0-36.0) Red Cell Distribution Width 17.6 % (11.6-14.8) H Platelet Count 26 K/UL (150-450) L Mean Platelet Volume 9.2 FL (6.5-10.1) Neutrophils (%) (Auto) % (45.0-75.0) Lymphocytes (%) (Auto) % (20.0-45.0) Monocytes (%) (Auto) % (1.0-10.0) Eosinophils (%) (Auto) % (0.0-3.0) Basophils (%) (Auto) % (0.0-2.0) Differential Total Cells Counted 100 Neutrophils % (Manual) 74 % (45-75) Lymphocytes % (Manual) 18 % (20-45) L Monocytes % (Manual) 7 % (1-10) Eosinophils % (Manual) 1 % (0-3) Basophils % (Manual) 0 % (0-2) Band Neutrophils 0 % (0-8) Platelet Estimate Decreased L Platelet Morphology Normal Hypochromasia 3+ Anisocytosis 1+ Spherocytes 1+ Prothrombin Time 17.3 SEC (9.30-11.50) H Prothromb Time International Ratio 1.7 (0.9-1.1) H Activated Partial Thromboplast Time 39 SEC (23-33) H Sodium Level 143 MMOL/L (136-145) Potassium Level 3.4 MMOL/L (3.5-5.1) L Chloride Level 109 MMOL/L (98-107) H Carbon Dioxide Level 24 MMOL/L (21-32) Anion Gap 10 mmol/L (5-15) Blood Urea Nitrogen 46 mg/dL (7-18) H Creatinine 4.3 MG/DL (0.55-1.30) H Estimat Glomerular Filtration Rate 11.6 mL/min (>60) Glucose Level 127 MG/DL (74-106) H Calcium Level 8.5 MG/DL (8.5-10.1) Phosphorus Level 4.7 MG/DL (2.5-4.9) Magnesium Level 1.6 MG/DL (1.8-2.4) L Total Bilirubin 2.7 MG/DL (0.2-1.0) H Direct Bilirubin 1.9 MG/DL (0.0-0.3) H Aspartate Amino Transf (AST/SGOT) 73 U/L (15-37) H Alanine Aminotransferase (ALT/SGPT) 36 U/L (12-78) Alkaline Phosphatase 119 U/L (46-116) H Total Protein 6.2 G/DL (6.4-8.2) L Albumin 1.8 G/DL (3.4-5.0) L Globulin 4.4 g/dL Albumin/Globulin Ratio 0.4 (1.0-2.7) L Height (Feet): 5 Height (Inches): 3.00 Weight (Pounds): 307 General Appearance: WD/WN, no apparent distress, alert Cardiovascular: normal rate Respiratory/Chest: normal breath sounds, no respiratory distress Abdominal Exam: normal bowel sounds, non tender, soft, other - dobhoff Extremities: non-tender Objective generalized edema Markus Lebron NP Aug 27, 2018 13:43
--- NOTE | 2018-08-27 17:40 | General Progress Note ---
Assessment/Plan Status: unchanged Assessment/Plan # Thrombocytopenia. Baseline appears to be 50-80k. Is most likely related to underlying liver disease with e/o portal htn. Hx of ETOH use. She does have evidence of hepatic cirrhosis, with surface nodularity an increased echogenicity. Evidence of portal hypertension, with ascites, splenomegaly, and flow reversal within the main and right portal vein. Evidence of prior cholecystectomy. Negative for dilated ducts. Prior CT and Us have been reviewed , hepatitis and hiv are both negative. Current the count is closer to 15-35k. --> Peripheral smear ordered and is negative for blasts, has been reviewed --> Abx and other meds have been reviewed. --> hold off heparin, asa, or plavix --> Transfuse plts if plt count >10k or if 20k and with fever --> Agree with lactulose and potential rifaximin for elev ammonia # Coagulopathy is likely related to underlying liver disease, liver us shows " Evidence of chronic liver disease with enlarged fatty liver and stigmata of portal hypertension including hepatofugal portal venous flow." --> no evidence of bleeding hold off unless bleeding is noted --> VIt K or ffp before procedure # Anemia due to gastrointestinal bleed. Hemoglobin on admission 5-8 range, likely bleed related, ferritin is 1125 --> Gastroenterology to evaluate and manage. --> was in the past on octreotide gtt # Anemia of chronic disease, multifactorial --> Previous w/u has been reviewed. --> Will trend CBC daily --> Hgb goal above 7 --> Blood tx: 08/17,08/18, 08/19, 08/23, 08/25, # Acute kidney injury secondary to intravascular volume depletion along with ischemic acute tubular necrosis from hypotension. --> Nephro following. Appreciate recs. # Hyperkalemia secondary to renal insufficiency and gastrointestinal bleed. --> The patient was given Kayexalate 60 g already. 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 Subjective Date patient seen: Aug 27, 2018 Hematologic/Lymphatic: Reports: anemia Allergies: Coded Allergies: LORAZEPAM (Verified Allergy, Unknown, 05/21/18) PENICILLINS (Verified Allergy, Unknown, 05/21/18) All Systems: reviewed and negative except above Subjective Remains in ICU. S/P L arm PICC line insertion. NC 4 liters. Objective Last 24 Hour Vital Signs Date Time Temp Pulse Resp B/P (MAP) Pulse Ox O2 Delivery O2 Flow Rate FiO2 08/27/18 16:00 Nasal Cannula 4.0 08/27/18 16:00 97.5 79 15 109/53 (71) 100 97.5 08/27/18 15:00 76 13 118/60 (79) 100 08/27/18 14:00 76 14 123/64 (83) 100 08/27/18 13:00 78 13 115/58 (77) 100 08/27/18 12:02 Nasal Cannula 4.0 08/27/18 12:00 75 08/27/18 12:00 98.1 77 15 115/64 (81) 100 98.1 08/27/18 11:00 79 13 107/57 (74) 100 08/27/18 10:00 77 13 110/55 (73) 100 08/27/18 09:00 76 14 104/43 (63) 100 08/27/18 08:00 72 08/27/18 08:00 Nasal Cannula 4.0 08/27/18 08:00 97.6 74 13 101/57 (72) 100 97.6 08/27/18 07:00 73 13 104/55 (71) 100 08/27/18 06:00 80 18 105/56 (72) 100 08/27/18 05:00 80 18 105/57 (73) 100 08/27/18 04:00 97.7 78 14 102/52 (69) 100 97.7 08/27/18 04:00 78 08/27/18 04:00 Nasal Cannula 4.0 08/27/18 03:00 75 18 99/51 (67) 100 08/27/18 02:00 73 23 101/58 (72) 100 08/27/18 01:00 73 22 95/52 (66) 100 08/27/18 00:00 72 08/27/18 00:00 97.8 72 14 99/53 (68) 100 97.8 08/27/18 00:00 Nasal Cannula 4.0 08/26/18 23:00 73 15 100/56 (71) 100 08/26/18 22:00 76 16 97/58 (71) 100 08/26/18 21:00 74 14 100/55 (70) 100 08/26/18 20:00 82 08/26/18 20:00 98.0 73 14 94/59 (71) 100 98.0 08/26/18 20:00 Nasal Cannula 4.0 08/26/18 19:18 Nasal Cannula 2.0 28 08/26/18 19:17 100 Nasal Cannula 2.0 28 08/26/18 18:00 73 14 94/59 (71) 100 Intake and Output 08/26/18 08/27/18 19:00 07:00 Intake Total 440 ml 900 ml Output Total 240 ml 475 ml Balance 200 ml 425 ml IV Total 400 ml 600 ml Tube Feeding 140 ml Other 40 ml 160 ml Output Urine Total 40 ml 75 ml Stool Total 200 ml 400 ml Laboratory Tests 08/27/18 04:45: White Blood Count 7.7, Red Blood Count 2.30L, Hemoglobin 7.4L, Hematocrit 22.1L , Mean Corpuscular Volume 96, Mean Corpuscular Hemoglobin 32.0H, Mean Corpuscular Hemoglobin Concent 33.3, Red Cell Distribution Width 17.6H, Platelet Count 26L, Mean Platelet Volume 9.2, Neutrophils (%) (Auto) , Lymphocytes (%) (Auto) , Monocytes (%) (Auto) , Eosinophils (%) (Auto) , Basophils (%) (Auto) , Differential Total Cells Counted 100, Neutrophils % ( Manual) 74, Lymphocytes % (Manual) 18L, Monocytes % (Manual) 7, Eosinophils % ( Manual) 1, Basophils % (Manual) 0, Band Neutrophils 0, Platelet Estimate DecreasedL, Platelet Morphology Normal, Hypochromasia 3+, Anisocytosis 1+, Spherocytes 1+, Prothrombin Time 17.3H, Prothromb Time International Ratio 1.7H , Activated Partial Thromboplast Time 39H, Sodium Level 143, Potassium Level 3.4L, Chloride Level 109H, Carbon Dioxide Level 24, Anion Gap 10, Blood Urea Nitrogen 46H, Creatinine 4.3H, Estimat Glomerular Filtration Rate 11.6, Glucose Level 127H, Calcium Level 8.5, Phosphorus Level 4.7, Magnesium Level 1.6L, Total Bilirubin 2.7H, Direct Bilirubin 1.9H, Aspartate Amino Transf (AST/SGOT) 73H, Alanine Aminotransferase (ALT/SGPT) 36, Alkaline Phosphatase 119H, Total Protein 6.2L, Albumin 1.8L, Globulin 4.4, Albumin/Globulin Ratio 0.4L Height (Feet): 5 Height (Inches): 3.00 Weight (Pounds): 307 General Appearance: no apparent distress, lethargic EENT: PERRL/EOMI Neck: normal alignment Cardiovascular: normal peripheral pulses Respiratory/Chest: normal breath sounds Abdomen: soft Michael Hernandez MD Aug 27, 2018 17:40
[2018-08-27] MEDS: Dyna-Hex 2% Top Sol 2oz TOPIC SCH (20:46)
[2018-08-28] VITALS (22 sets, daily range): BP systolic 107–125; BP diastolic 46–69
[2018-08-28] MEDS: Lactulose 20gm/30ml UDC ORAL SCH ×4 (01:35→17:36)
[2018-08-28] MEDS: Octreotide Acetate 500 MCG in Sodium Chloride 500ML 499 ML IV SCH ×3 (02:30→23:09)
[2018-08-28 04:24] LABS: HEMATOCRIT 21.9 % (37.0-47.0); HEMOGLOBIN 7.2 G/DL (12.0-16.0); MEAN CORPUSCULAR VOLUME 96 FL (80-99); PLATELET COUNT 32 K/UL (150-450); RED BLOOD COUNT 2.28 M/UL (4.20-5.40); RED CELL DISTRIBUTION WIDTH 17.9 % (11.6-14.8); WHITE BLOOD COUNT 9.1 K/UL (4.8-10.8)
[2018-08-28 04:33] LABS: INR 1.6 (0.9-1.1)
[2018-08-28 04:54] LABS: ALANINE AMINOTRANSFERASE 34 U/L (12-78); ALBUMIN 1.8 G/DL (3.4-5.0); ALBUMIN/GLOBULIN RATIO 0.4 (1.0-2.7); ALKALINE PHOSPHATASE 140 U/L (46-116); ANION GAP 10 mmol/L (5-15); ASPARTATE AMINO TRANSFERASE 66 U/L (15-37); BILIRUBIN,TOTAL 2.4 MG/DL (0.2-1.0); BLOOD UREA NITROGEN 37 mg/dL (7-18); CALCIUM 8.4 MG/DL (8.5-10.1); CARBON DIOXIDE 26 MMOL/L (21-32); CHLORIDE 109 MMOL/L (98-107); CREATININE 3.7 MG/DL (0.55-1.30); SODIUM 144 MMOL/L (136-145)
[2018-08-28 04:58] LABS: BILIRUBIN,DIRECT 1.7 MG/DL (0.0-0.3)
[2018-08-28 05:08] LABS: PHOSPHORUS 3.4 MG/DL (2.5-4.9)
--- NOTE | 2018-08-28 08:39 | Nephrology Progress Note ---
Assessment/Plan Assessment/Plan 1. LENI- multifact ATN ( hypotension/intravasc vol dep/?hepatorenal/Anemia) - Had HD yesterday 2. Hypok+- replace today again 3. Hepatic Failure- poor prognosis, alcohol. Consider terminal care 4. HypoMag- replace 5. GI Bleed/Anemia- per GI mgmt, Octreotide Subjective Date patient seen: Aug 28, 2018 Time patient seen: 08:31 ROS Limited/Unobtainable: Yes Allergies: Coded Allergies: LORAZEPAM (Verified Allergy, Unknown, 05/21/18) PENICILLINS (Verified Allergy, Unknown, 05/21/18) All Systems: reviewed and negative except above Subjective Patient more awake and alert Objective Last 24 Hour Vital Signs Date Time Temp Pulse Resp B/P (MAP) Pulse Ox O2 Delivery O2 Flow Rate FiO2 08/28/18 06:00 82 18 107/46 (66) 100 08/28/18 05:00 83 15 110/52 (71) 100 08/28/18 04:00 81 08/28/18 04:00 Nasal Cannula 4.0 08/28/18 04:00 98.2 81 15 109/50 (69) 100 98.2 08/28/18 03:00 86 16 112/52 (72) 100 08/28/18 02:00 83 16 109/51 (70) 100 08/28/18 01:00 83 16 108/51 (70) 100 08/28/18 00:00 84 08/28/18 00:00 Nasal Cannula 4.0 08/28/18 00:00 97.8 84 15 109/50 (69) 100 97.8 08/27/18 23:00 81 15 112/48 (69) 100 08/27/18 22:00 82 14 112/51 (71) 100 08/27/18 21:15 Nasal Cannula 2.0 28 08/27/18 21:14 100 Nasal Cannula 2.0 28 08/27/18 21:00 82 14 107/49 (68) 100 08/27/18 20:00 98.3 83 14 106/59 (75) 100 98.3 08/27/18 20:00 83 08/27/18 20:00 Nasal Cannula 4.0 08/27/18 19:00 84 20 118/52 (74) 100 08/27/18 18:00 79 20 117/55 (75) 100 10/16/18 17:00 80 15 120/56 (77) 100 08/27/18 16:00 Nasal Cannula 4.0 08/27/18 16:00 79 08/27/18 16:00 97.5 79 15 109/53 (71) 100 97.5 08/27/18 15:00 76 13 118/60 (79) 100 08/27/18 14:00 76 14 123/64 (83) 100 08/27/18 13:00 78 13 115/58 (77) 100 08/27/18 12:02 Nasal Cannula 4.0 08/27/18 12:00 75 08/27/18 12:00 98.1 77 15 115/64 (81) 100 98.1 08/27/18 11:00 79 13 107/57 (74) 100 08/27/18 10:00 77 13 110/55 (73) 100 08/27/18 09:00 76 14 104/43 (63) 100 Intake and Output 08/27/18 08/28/18 19:00 07:00 Intake Total 985 ml 1040 ml Output Total 570 ml 1615 ml Balance 415 ml -575 ml Free Water 60 ml 150 ml IV Total 625 ml 550 ml Tube Feeding 300 ml 340 ml Output Urine Total 120 ml 15 ml Stool Total 450 ml 200 ml Hemodialysis UF 1400 ml Laboratory Tests 08/28/18 03:30: White Blood Count 9.1, Red Blood Count 2.28L, Hemoglobin 7.2L, Hematocrit 21.9L , Mean Corpuscular Volume 96, Mean Corpuscular Hemoglobin 31.8H, Mean Corpuscular Hemoglobin Concent 33.1, Red Cell Distribution Width 17.9H, Platelet Count 32L, Mean Platelet Volume 10.3H, Neutrophils (%) (Auto) , Lymphocytes (%) (Auto) , Monocytes (%) (Auto) , Eosinophils (%) (Auto) , Basophils (%) (Auto) , Differential Total Cells Counted 100, Neutrophils % ( Manual) 66, Lymphocytes % (Manual) 19L, Monocytes % (Manual) 11H, Eosinophils % (Manual) 3, Basophils % (Manual) 0, Band Neutrophils 1, Platelet Estimate DecreasedL, Platelet Morphology Normal, Hypochromasia 1+, Anisocytosis 1+, Macrocytosis 1+, Prothrombin Time 16.6H, Prothromb Time International Ratio 1.6H , Activated Partial Thromboplast Time 38H, Sodium Level 144, Potassium Level 3.0L, Chloride Level 109H, Carbon Dioxide Level 26, Anion Gap 10, Blood Urea Nitrogen 37H, Creatinine 3.7H, Estimat Glomerular Filtration Rate 13.9, Glucose Level 139H, Calcium Level 8.4L, Phosphorus Level 3.4, Magnesium Level 1.6L, Total Bilirubin 2.4H, Direct Bilirubin 1.7H, Aspartate Amino Transf (AST/SGOT) 66H, Alanine Aminotransferase (ALT/SGPT) 34, Alkaline Phosphatase 140H, Ammonia 121H, Total Protein 6.1L, Albumin 1.8L, Globulin 4.3, Albumin/Globulin Ratio 0.4L Height (Feet): 5 Height (Inches): 3.00 Weight (Pounds): 311 General Appearance: lethargic EENT: normal ENT inspection Neck: normal alignment, supple Cardiovascular: normal rate, regular rhythm Respiratory/Chest: rhonchi - bilaterally Abdomen: non tender, soft Edema: 4+ Arm (L), 4+ Arm (R), 4+ Leg (L), 4+ Leg (R), 4+ Pedal (L), 4+ Pedal ( R), 4+ Generalized Amos Pinon MD Aug 28, 2018 08:39
[2018-08-28] MEDS: Pantoprazole Inj IVP SCH (08:44)
--- NOTE | 2018-08-28 10:40 | Pulmonolgy Critical Care Note ---
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, ID Critical Care - Objective Last 24 Hour Vital Signs Date Time Temp Pulse Resp B/P (MAP) Pulse Ox O2 Delivery O2 Flow Rate FiO2 08/28/18 09:00 81 22 116/57 (76) 100 08/28/18 08:00 Nasal Cannula 4.0 08/28/18 08:00 98.3 80 16 114/49 (70) 100 98.3 08/28/18 08:00 79 08/28/18 07:00 80 15 110/49 (69) 100 08/28/18 06:00 82 18 107/46 (66) 100 08/28/18 05:00 83 15 110/52 (71) 100 08/28/18 04:00 81 08/28/18 04:00 Nasal Cannula 4.0 08/28/18 04:00 98.2 81 15 109/50 (69) 100 98.2 08/28/18 03:00 86 16 112/52 (72) 100 08/28/18 02:00 83 16 109/51 (70) 100 08/28/18 01:00 83 16 108/51 (70) 100 08/28/18 00:00 84 08/28/18 00:00 Nasal Cannula 4.0 08/28/18 00:00 97.8 84 15 109/50 (69) 100 97.8 08/27/18 23:00 81 15 112/48 (69) 100 08/27/18 22:00 82 14 112/51 (71) 100 08/27/18 21:15 Nasal Cannula 2.0 28 08/27/18 21:14 100 Nasal Cannula 2.0 28 08/27/18 21:00 82 14 107/49 (68) 100 08/27/18 20:00 98.3 83 14 106/59 (75) 100 98.3 08/27/18 20:00 83 08/27/18 20:00 Nasal Cannula 4.0 08/27/18 19:00 84 20 118/52 (74) 100 08/27/18 18:00 79 20 117/55 (75) 100 08/27/18 17:00 80 15 120/56 (77) 100 08/27/18 16:00 Nasal Cannula 4.0 08/27/18 16:00 79 08/27/18 16:00 97.5 79 15 109/53 (71) 100 97.5 08/27/18 15:00 76 13 118/60 (79) 100 08/27/18 14:00 76 14 123/64 (83) 100 08/27/18 13:00 78 13 115/58 (77) 100 08/27/18 12:02 Nasal Cannula 4.0 08/27/18 12:00 75 08/27/18 12:00 98.1 77 15 115/64 (81) 100 98.1 08/27/18 11:00 79 13 107/57 (74) 100 Status: somnolent Condition: critical Neck: full ROM Lungs: clear Heart: HR/BP stable Abdomen: soft, active bowel sounds Extremities: no C/C/E, edema Critical Care - Subjective ROS Limited/Unobtainable: Yes Condition: critical EKG Rhythm: Sinus Rhythm FI02: 28 Sputum Amount: None Tube Feeding Amount: 40 I&O: Intake and Output 08/27/18 08/28/18 19:00 07:00 Intake Total 985 ml 1080 ml Output Total 570 ml 1615 ml Balance 415 ml -535 ml Free Water 60 ml 150 ml IV Total 625 ml 550 ml Tube Feeding 300 ml 380 ml Output Urine Total 120 ml 15 ml Stool Total 450 ml 200 ml Hemodialysis UF 1400 ml Labs: Laboratory Tests Test 08/28/18 03:30 White Blood Count 9.1 K/UL (4.8-10.8) Red Blood Count 2.28 M/UL (4.20-5.40) L Hemoglobin 7.2 G/DL (12.0-16.0) L Hematocrit 21.9 % (37.0-47.0) L Mean Corpuscular Volume 96 FL (80-99) Mean Corpuscular Hemoglobin 31.8 PG (27.0-31.0) H Mean Corpuscular Hemoglobin Concent 33.1 G/DL (32.0-36.0) Red Cell Distribution Width 17.9 % (11.6-14.8) H Platelet Count 32 K/UL (150-450) L Mean Platelet Volume 10.3 FL (6.5-10.1) H Neutrophils (%) (Auto) % (45.0-75.0) Lymphocytes (%) (Auto) % (20.0-45.0) Monocytes (%) (Auto) % (1.0-10.0) Eosinophils (%) (Auto) % (0.0-3.0) Basophils (%) (Auto) % (0.0-2.0) Differential Total Cells Counted 100 Neutrophils % (Manual) 66 % (45-75) Lymphocytes % (Manual) 19 % (20-45) L Monocytes % (Manual) 11 % (1-10) H Eosinophils % (Manual) 3 % (0-3) Basophils % (Manual) 0 % (0-2) Band Neutrophils 1 % (0-8) Platelet Estimate Decreased L Platelet Morphology Normal Hypochromasia 1+ Anisocytosis 1+ Macrocytosis 1+ Prothrombin Time 16.6 SEC (9.30-11.50) H Prothromb Time International Ratio 1.6 (0.9-1.1) H Activated Partial Thromboplast Time 38 SEC (23-33) H Sodium Level 144 MMOL/L (136-145) Potassium Level 3.0 MMOL/L (3.5-5.1) L Chloride Level 109 MMOL/L (98-107) H Carbon Dioxide Level 26 MMOL/L (21-32) Anion Gap 10 mmol/L (5-15) Blood Urea Nitrogen 37 mg/dL (7-18) H Creatinine 3.7 MG/DL (0.55-1.30) H Estimat Glomerular Filtration Rate 13.9 mL/min (>60) Glucose Level 139 MG/DL (74-106) H Calcium Level 8.4 MG/DL (8.5-10.1) L Phosphorus Level 3.4 MG/DL (2.5-4.9) Magnesium Level 1.6 MG/DL (1.8-2.4) L Total Bilirubin 2.4 MG/DL (0.2-1.0) H Direct Bilirubin 1.7 MG/DL (0.0-0.3) H Aspartate Amino Transf (AST/SGOT) 66 U/L (15-37) H Alanine Aminotransferase (ALT/SGPT) 34 U/L (12-78) Alkaline Phosphatase 140 U/L (46-116) H Ammonia 121 umol/L (11-32) H Total Protein 6.1 G/DL (6.4-8.2) L Albumin 1.8 G/DL (3.4-5.0) L Globulin 4.3 g/dL Albumin/Globulin Ratio 0.4 (1.0-2.7) L Jose Roberto Burleson MD Aug 28, 2018 10:40
--- NOTE | 2018-08-28 12:04 | GI Progress Note ---
Assessment/Plan Problems: (1) Ascites ICD Codes: R18.8 - Other ascites SNOMED: 115032130 (2) Alcoholic cirrhosis ICD Codes: K70.30 - Alcoholic cirrhosis of liver without ascites SNOMED: 889922438 (3) Esophageal varices ICD Codes: I85.00 - Esophageal varices without bleeding SNOMED: 44704911 (4) Anemia ICD Codes: D64.9 - Anemia, unspecified SNOMED: 112204862 (5) Chronic renal insufficiency ICD Codes: N18.9 - Chronic kidney disease, unspecified SNOMED: 959787011 (6) Coagulopathy ICD Codes: D68.9 - Coagulation defect, unspecified SNOMED: 72025318 (7) Hemorrhagic shock ICD Codes: R57.8 - Other shock SNOMED: 274260 (8) GI bleed ICD Codes: K92.2 - Gastrointestinal hemorrhage, unspecified SNOMED: 60378692 Status: unchanged Status Narrative Discussed with Dr. Rodriguez. Assessment/Plan s/p EGD >> Esophageal varices, status post banding x7. dobhoff placed more awake and alert RECOMMENDATIONS: GTFs via dobhoff ppi BID transfuse prn lactulose + Xifaxan very poor prognosis fu labs The patient was seen and examined at bedside and all new and available data was reviewed in the patients chart. I agree with the above findings, impression and plan. (Patient seen earlier today. Signature stamp does not reflect patient encounter time.). - Christopher Rodriguez MD Subjective Subjective limited, confused Objective Last 24 Hour Vital Signs Date Time Temp Pulse Resp B/P (MAP) Pulse Ox O2 Delivery O2 Flow Rate FiO2 08/28/18 11:00 81 14 116/58 (77) 100 08/28/18 10:00 81 17 110/55 (73) 100 08/28/18 09:00 81 22 116/57 (76) 100 08/28/18 08:00 Nasal Cannula 4.0 08/28/18 08:00 98.3 80 16 114/49 (70) 100 98.3 08/28/18 08:00 79 08/28/18 07:00 80 15 110/49 (69) 100 08/28/18 06:00 82 18 107/46 (66) 100 08/28/18 05:00 83 15 110/52 (71) 100 08/28/18 04:00 81 08/28/18 04:00 Nasal Cannula 4.0 08/28/18 04:00 98.2 81 15 109/50 (69) 100 98.2 08/28/18 03:00 86 16 112/52 (72) 100 08/28/18 02:00 83 16 109/51 (70) 100 08/28/18 01:00 83 16 108/51 (70) 100 08/28/18 00:00 84 08/28/18 00:00 Nasal Cannula 4.0 08/28/18 00:00 97.8 84 15 109/50 (69) 100 97.8 08/27/18 23:00 81 15 112/48 (69) 100 08/27/18 22:00 82 14 112/51 (71) 100 08/27/18 21:15 Nasal Cannula 2.0 28 08/27/18 21:14 100 Nasal Cannula 2.0 28 08/27/18 21:00 82 14 107/49 (68) 100 08/27/18 20:00 98.3 83 14 106/59 (75) 100 98.3 08/27/18 20:00 83 08/27/18 20:00 Nasal Cannula 4.0 08/27/18 19:00 84 20 118/52 (74) 100 08/27/18 18:00 79 20 117/55 (75) 100 08/27/18 17:00 80 15 120/56 (77) 100 08/27/18 16:00 Nasal Cannula 4.0 08/27/18 16:00 79 08/27/18 16:00 97.5 79 15 109/53 (71) 100 97.5 08/27/18 15:00 76 13 118/60 (79) 100 08/27/18 14:00 76 14 123/64 (83) 100 08/27/18 13:00 78 13 115/58 (77) 100 Intake and Output 08/27/18 08/28/18 19:00 07:00 Intake Total 985 ml 1080 ml Output Total 570 ml 1615 ml Balance 415 ml -535 ml Free Water 60 ml 150 ml IV Total 625 ml 550 ml Tube Feeding 300 ml 380 ml Output Urine Total 120 ml 15 ml Stool Total 450 ml 200 ml Hemodialysis UF 1400 ml Laboratory Tests Test 08/28/18 03:30 White Blood Count 9.1 K/UL (4.8-10.8) Red Blood Count 2.28 M/UL (4.20-5.40) L Hemoglobin 7.2 G/DL (12.0-16.0) L Hematocrit 21.9 % (37.0-47.0) L Mean Corpuscular Volume 96 FL (80-99) Mean Corpuscular Hemoglobin 31.8 PG (27.0-31.0) H Mean Corpuscular Hemoglobin Concent 33.1 G/DL (32.0-36.0) Red Cell Distribution Width 17.9 % (11.6-14.8) H Platelet Count 32 K/UL (150-450) L Mean Platelet Volume 10.3 FL (6.5-10.1) H Neutrophils (%) (Auto) % (45.0-75.0) Lymphocytes (%) (Auto) % (20.0-45.0) Monocytes (%) (Auto) % (1.0-10.0) Eosinophils (%) (Auto) % (0.0-3.0) Basophils (%) (Auto) % (0.0-2.0) Differential Total Cells Counted 100 Neutrophils % (Manual) 66 % (45-75) Lymphocytes % (Manual) 19 % (20-45) L Monocytes % (Manual) 11 % (1-10) H Eosinophils % (Manual) 3 % (0-3) Basophils % (Manual) 0 % (0-2) Band Neutrophils 1 % (0-8) Platelet Estimate Decreased L Platelet Morphology Normal Hypochromasia 1+ Anisocytosis 1+ Macrocytosis 1+ Prothrombin Time 16.6 SEC (9.30-11.50) H Prothromb Time International Ratio 1.6 (0.9-1.1) H Activated Partial Thromboplast Time 38 SEC (23-33) H Sodium Level 144 MMOL/L (136-145) Potassium Level 3.0 MMOL/L (3.5-5.1) L Chloride Level 109 MMOL/L (98-107) H Carbon Dioxide Level 26 MMOL/L (21-32) Anion Gap 10 mmol/L (5-15) Blood Urea Nitrogen 37 mg/dL (7-18) H Creatinine 3.7 MG/DL (0.55-1.30) H Estimat Glomerular Filtration Rate 13.9 mL/min (>60) Glucose Level 139 MG/DL (74-106) H Calcium Level 8.4 MG/DL (8.5-10.1) L Phosphorus Level 3.4 MG/DL (2.5-4.9) Magnesium Level 1.6 MG/DL (1.8-2.4) L Total Bilirubin 2.4 MG/DL (0.2-1.0) H Direct Bilirubin 1.7 MG/DL (0.0-0.3) H Aspartate Amino Transf (AST/SGOT) 66 U/L (15-37) H Alanine Aminotransferase (ALT/SGPT) 34 U/L (12-78) Alkaline Phosphatase 140 U/L (46-116) H Ammonia 121 umol/L (11-32) H Total Protein 6.1 G/DL (6.4-8.2) L Albumin 1.8 G/DL (3.4-5.0) L Globulin 4.3 g/dL Albumin/Globulin Ratio 0.4 (1.0-2.7) L Height (Feet): 5 Height (Inches): 3.00 Weight (Pounds): 311 General Appearance: alert, confused Cardiovascular: normal rate Abdominal Exam: soft, other - dobhoff Objective generalized edema Markus Lebron NP Aug 28, 2018 12:04
--- NOTE | 2018-08-28 12:05 | Infectious Diseases Prog Note ---
Assessment/Plan Assessment/Plan The patient is a 38-year-old female with: 1. Probable sepsis, SP -Bcx neg 2. Leukocytosis; SP -CXR: Pulmonary vascular congestion with increased interstitial markings , likely representing interstitial edema. This appears improved relative to the chest x-ray from 07/22/18 3. Urinary tract infection, s/p Rx u/a wbc 60-80, nit+, leuk large; ucx ESBL K. pna ( R zosyn, S ertapenem), Citrobacter freundi (R ancef, I Impienem, S ertapenem) 4. History of hepatitis panel and HIV serology negative. 5. GIB -s/p EGD 08/19: esophageal varices 6. Afebrile. 7.Seizures episodes 08/24 (?related to carbapenem) 8. Acute renal insufficiency.; on HD -Renal US: unremarkable 9. Thrombocytopenia Encephalopathy, multifactorial, ongoin -. Alcoholic cirrhosis. -. Esophageal varices. PLAN: -Continue to monitor off abx -08/25 SP Ertapenem #7 -08/19 SP cefepime and Flagyl #3 -. Monitor BMP. -. Monitor cultures (blood).. -.Renal, GI f/u -seizure precautions -aspiration precautions Thank you, Dr. Chauncey Fuentes, for allowing me to see this patient. I will follow the patient with you during this hospitalization. Subjective Allergies: Coded Allergies: LORAZEPAM (Verified Allergy, Unknown, 05/21/18) PENICILLINS (Verified Allergy, Unknown, 05/21/18) Subjective afebrile no leukocytosis remains off abx Objective Vital Signs Last 24 Hour Vital Signs Date Time Temp Pulse Resp B/P (MAP) Pulse Ox O2 Delivery O2 Flow Rate FiO2 08/28/18 11:00 81 14 116/58 (77) 100 08/28/18 10:00 81 17 110/55 (73) 100 08/28/18 09:00 81 22 116/57 (76) 100 08/28/18 08:00 Nasal Cannula 4.0 08/28/18 08:00 98.3 80 16 114/49 (70) 100 98.3 08/28/18 08:00 79 08/28/18 07:00 80 15 110/49 (69) 100 08/28/18 06:00 82 18 107/46 (66) 100 08/28/18 05:00 83 15 110/52 (71) 100 08/28/18 04:00 81 08/28/18 04:00 Nasal Cannula 4.0 08/28/18 04:00 98.2 81 15 109/50 (69) 100 98.2 08/28/18 03:00 86 16 112/52 (72) 100 08/28/18 02:00 83 16 109/51 (70) 100 08/28/18 01:00 83 16 108/51 (70) 100 08/28/18 00:00 84 08/28/18 00:00 Nasal Cannula 4.0 08/28/18 00:00 97.8 84 15 109/50 (69) 100 97.8 08/27/18 23:00 81 15 112/48 (69) 100 08/27/18 22:00 82 14 112/51 (71) 100 08/27/18 21:15 Nasal Cannula 2.0 28 08/27/18 21:14 100 Nasal Cannula 2.0 28 08/27/18 21:00 82 14 107/49 (68) 100 08/27/18 20:00 98.3 83 14 106/59 (75) 100 98.3 08/27/18 20:00 83 08/27/18 20:00 Nasal Cannula 4.0 08/27/18 19:00 84 20 118/52 (74) 100 08/27/18 18:00 79 20 117/55 (75) 100 08/27/18 17:00 80 15 120/56 (77) 100 08/27/18 16:00 Nasal Cannula 4.0 08/27/18 16:00 79 08/27/18 16:00 97.5 79 15 109/53 (71) 100 97.5 08/27/18 15:00 76 13 118/60 (79) 100 08/27/18 14:00 76 14 123/64 (83) 100 08/27/18 13:00 78 13 115/58 (77) 100 Height (Feet): 5 Height (Inches): 3.00 Weight (Pounds): 311 Objective HEENT: No pale conjunctivae. CHEST: Clear. HEART: S1 and S2. ABDOMEN: Obese and nontender. EXTREMITIES: No cyanosis at this time. There is no edema. NEUROLOGIC: Awake, but lethargic. Laboratory Tests Test 08/28/18 03:30 White Blood Count 9.1 K/UL (4.8-10.8) Red Blood Count 2.28 M/UL (4.20-5.40) L Hemoglobin 7.2 G/DL (12.0-16.0) L Hematocrit 21.9 % (37.0-47.0) L Mean Corpuscular Volume 96 FL (80-99) Mean Corpuscular Hemoglobin 31.8 PG (27.0-31.0) H Mean Corpuscular Hemoglobin Concent 33.1 G/DL (32.0-36.0) Red Cell Distribution Width 17.9 % (11.6-14.8) H Platelet Count 32 K/UL (150-450) L Mean Platelet Volume 10.3 FL (6.5-10.1) H Neutrophils (%) (Auto) % (45.0-75.0) Lymphocytes (%) (Auto) % (20.0-45.0) Monocytes (%) (Auto) % (1.0-10.0) Eosinophils (%) (Auto) % (0.0-3.0) Basophils (%) (Auto) % (0.0-2.0) Differential Total Cells Counted 100 Neutrophils % (Manual) 66 % (45-75) Lymphocytes % (Manual) 19 % (20-45) L Monocytes % (Manual) 11 % (1-10) H Eosinophils % (Manual) 3 % (0-3) Basophils % (Manual) 0 % (0-2) Band Neutrophils 1 % (0-8) Platelet Estimate Decreased L Platelet Morphology Normal Hypochromasia 1+ Anisocytosis 1+ Macrocytosis 1+ Prothrombin Time 16.6 SEC (9.30-11.50) H Prothromb Time International Ratio 1.6 (0.9-1.1) H Activated Partial Thromboplast Time 38 SEC (23-33) H Sodium Level 144 MMOL/L (136-145) Potassium Level 3.0 MMOL/L (3.5-5.1) L Chloride Level 109 MMOL/L (98-107) H Carbon Dioxide Level 26 MMOL/L (21-32) Anion Gap 10 mmol/L (5-15) Blood Urea Nitrogen 37 mg/dL (7-18) H Creatinine 3.7 MG/DL (0.55-1.30) H Estimat Glomerular Filtration Rate 13.9 mL/min (>60) Glucose Level 139 MG/DL (74-106) H Calcium Level 8.4 MG/DL (8.5-10.1) L Phosphorus Level 3.4 MG/DL (2.5-4.9) Magnesium Level 1.6 MG/DL (1.8-2.4) L Total Bilirubin 2.4 MG/DL (0.2-1.0) H Direct Bilirubin 1.7 MG/DL (0.0-0.3) H Aspartate Amino Transf (AST/SGOT) 66 U/L (15-37) H Alanine Aminotransferase (ALT/SGPT) 34 U/L (12-78) Alkaline Phosphatase 140 U/L (46-116) H Ammonia 121 umol/L (11-32) H Total Protein 6.1 G/DL (6.4-8.2) L Albumin 1.8 G/DL (3.4-5.0) L Globulin 4.3 g/dL Albumin/Globulin Ratio 0.4 (1.0-2.7) L Current Medications Medications (Trade) Dose Ordered Sig/Abner Route PRN Reason Start Time Stop Time Status Last Admin Dose Admin Al Hydroxide/Mg Hydroxide (Mylanta II) 30 ml Q6H PRN ORAL dyspepsia 08/24/18 20:30 09/23/18 20:29 Chlorhexidine Gluconate (Sierra-Hex 2%) 1 applic DAILY@2000 TOPIC 08/24/18 20:00 09/18/18 19:59 08/27/18 20:46 Dextrose (Dextrose 50%) 25 ml Q30M PRN IV Hypoglycemia 08/24/18 20:30 09/23/18 20:29 Dextrose (Dextrose 50%) 50 ml Q30M PRN IV Hypoglycemia 08/24/18 20:30 09/16/18 16:20 Lactulose (Cephulac) 30 gm EVERY 6 HOURS ORAL 08/25/18 00:00 09/16/18 11:59 08/28/18 06:16 Lorazepam (Ativan 2mg/ml 1ml) 1 mg Q4H PRN IV For Anxiety or sz 08/24/18 20:30 08/31/18 20:29 08/26/18 00:34 Octreotide Acetate 500 mcg/ Sodium Chloride 500 ml @ 50 mls/hr Q10H IV 08/26/18 11:00 09/25/18 10:59 08/28/18 02:30 Ondansetron HCl (Zofran) 4 mg Q6H PRN IVP Nausea & Vomiting 08/24/18 20:30 09/23/18 20:29 Pantoprazole (Protonix) 40 mg DAILY IVP 08/29/18 09:00 09/24/18 05:59 Rifaximin (Xifaxan) 550 mg EVERY 12 HOURS ORAL 08/27/18 09:00 09/03/18 08:59 08/28/18 08:44 Stacy Perdoom M.D. Aug 28, 2018 12:05
--- NOTE | 2018-08-28 14:35 | General Progress Note ---
Assessment/Plan Problem List: (1) Edema ICD Codes: R60.9 - Edema, unspecified SNOMED: 910466723, 699466345 (2) Anemia ICD Codes: D64.9 - Anemia, unspecified SNOMED: 024997477 (3) Alcoholic cirrhosis ICD Codes: K70.30 - Alcoholic cirrhosis of liver without ascites SNOMED: 517804882 (4) Esophageal varices ICD Codes: I85.00 - Esophageal varices without bleeding SNOMED: 16210356 (5) Leukocytosis ICD Codes: D72.829 - Elevated white blood cell count, unspecified SNOMED: 877543445, 933305437 (6) GI bleed ICD Codes: K92.2 - Gastrointestinal hemorrhage, unspecified SNOMED: 25896678 (7) LENI (acute kidney injury) ICD Codes: N17.9 - Acute kidney failure, unspecified SNOMED: 87376928 (8) Sepsis ICD Codes: A41.9 - Sepsis, unspecified organism SNOMED: 32395648 (9) Seizure ICD Codes: R56.9 - Unspecified convulsions SNOMED: 25399880 Status: unchanged Assessment/Plan abx oe pulm tx transfuse prn gi heme f/u dialysis prn seizure control cbc bmp am promise ltach if clear Subjective Constitutional: Reports: weakness Allergies: Coded Allergies: LORAZEPAM (Verified Allergy, Unknown, 05/21/18) PENICILLINS (Verified Allergy, Unknown, 05/21/18) All Systems: reviewed and negative except above Subjective 02nc sleepy in icu Objective Last 24 Hour Vital Signs Date Time Temp Pulse Resp B/P (MAP) Pulse Ox O2 Delivery O2 Flow Rate FiO2 08/28/18 14:00 82 17 125/62 (83) 100 08/28/18 13:00 98.8 89 15 123/59 (80) 100 98.8 08/28/18 12:00 82 08/28/18 12:00 Nasal Cannula 4.0 08/28/18 12:00 92 15 123/65 (84) 100 08/28/18 11:00 81 14 116/58 (77) 100 08/28/18 10:00 81 17 110/55 (73) 100 08/28/18 09:00 81 22 116/57 (76) 100 08/28/18 08:00 Nasal Cannula 4.0 08/28/18 08:00 98.3 80 16 114/49 (70) 100 98.3 08/28/18 08:00 79 08/28/18 07:00 80 15 110/49 (69) 100 08/28/18 06:00 82 18 107/46 (66) 100 08/28/18 05:00 83 15 110/52 (71) 100 08/28/18 04:00 81 08/28/18 04:00 Nasal Cannula 4.0 08/28/18 04:00 98.2 81 15 109/50 (69) 100 98.2 08/28/18 03:00 86 16 112/52 (72) 100 08/28/18 02:00 83 16 109/51 (70) 100 08/28/18 01:00 83 16 108/51 (70) 100 08/28/18 00:00 84 08/28/18 00:00 Nasal Cannula 4.0 08/28/18 00:00 97.8 84 15 109/50 (69) 100 97.8 08/27/18 23:00 81 15 112/48 (69) 100 08/27/18 22:00 82 14 112/51 (71) 100 08/27/18 21:15 Nasal Cannula 2.0 28 08/27/18 21:14 100 Nasal Cannula 2.0 28 08/27/18 21:00 82 14 107/49 (68) 100 08/27/18 20:00 98.3 83 14 106/59 (75) 100 98.3 08/27/18 20:00 83 08/27/18 20:00 Nasal Cannula 4.0 08/27/18 19:00 84 20 118/52 (74) 100 08/27/18 18:00 79 20 117/55 (75) 100 08/27/18 17:00 80 15 120/56 (77) 100 08/27/18 16:00 Nasal Cannula 4.0 08/27/18 16:00 79 08/27/18 16:00 97.5 79 15 109/53 (71) 100 97.5 08/27/18 15:00 76 13 118/60 (79) 100 Intake and Output 08/27/18 08/28/18 19:00 07:00 Intake Total 985 ml 1080 ml Output Total 570 ml 1615 ml Balance 415 ml -535 ml Free Water 60 ml 150 ml IV Total 625 ml 550 ml Tube Feeding 300 ml 380 ml Output Urine Total 120 ml 15 ml Stool Total 450 ml 200 ml Hemodialysis UF 1400 ml Laboratory Tests 08/28/18 03:30: White Blood Count 9.1, Red Blood Count 2.28L, Hemoglobin 7.2L, Hematocrit 21.9L , Mean Corpuscular Volume 96, Mean Corpuscular Hemoglobin 31.8H, Mean Corpuscular Hemoglobin Concent 33.1, Red Cell Distribution Width 17.9H, Platelet Count 32L, Mean Platelet Volume 10.3H, Neutrophils (%) (Auto) , Lymphocytes (%) (Auto) , Monocytes (%) (Auto) , Eosinophils (%) (Auto) , Basophils (%) (Auto) , Differential Total Cells Counted 100, Neutrophils % ( Manual) 66, Lymphocytes % (Manual) 19L, Monocytes % (Manual) 11H, Eosinophils % (Manual) 3, Basophils % (Manual) 0, Band Neutrophils 1, Platelet Estimate DecreasedL, Platelet Morphology Normal, Hypochromasia 1+, Anisocytosis 1+, Macrocytosis 1+, Prothrombin Time 16.6H, Prothromb Time International Ratio 1.6H , Activated Partial Thromboplast Time 38H, Sodium Level 144, Potassium Level 3.0L, Chloride Level 109H, Carbon Dioxide Level 26, Anion Gap 10, Blood Urea Nitrogen 37H, Creatinine 3.7H, Estimat Glomerular Filtration Rate 13.9, Glucose Level 139H, Calcium Level 8.4L, Phosphorus Level 3.4, Magnesium Level 1.6L, Total Bilirubin 2.4H, Direct Bilirubin 1.7H, Aspartate Amino Transf (AST/SGOT) 66H, Alanine Aminotransferase (ALT/SGPT) 34, Alkaline Phosphatase 140H, Ammonia 121H, Total Protein 6.1L, Albumin 1.8L, Globulin 4.3, Albumin/Globulin Ratio 0.4L Height (Feet): 5 Height (Inches): 3.00 Weight (Pounds): 311 General Appearance: lethargic EENT: normal ENT inspection Neck: normal alignment Cardiovascular: normal peripheral pulses, normal rate, regular rhythm Respiratory/Chest: chest wall non-tender, decreased breath sounds Abdomen: normal bowel sounds, non tender, soft Extremities: normal inspection Edema: 1+ Arm (L), 1+ Arm (R), 1+ Leg (L), 1+ Leg (R), 1+ Pedal (L), 1+ Pedal ( R), 1+ Generalized Edema: trace edema Neurologic: motor weakness Skin: normal pigmentation, warm/dry Chauncey Fuentes DO Aug 28, 2018 14:35
--- NOTE | 2018-08-28 14:56 | General Progress Note ---
Assessment/Plan Status: unchanged Assessment/Plan # Thrombocytopenia. Baseline appears to be 50-80k. Is most likely related to underlying liver disease with e/o portal htn. Hx of ETOH use. She does have evidence of hepatic cirrhosis, with surface nodularity an increased echogenicity. Evidence of portal hypertension, with ascites, splenomegaly, and flow reversal within the main and right portal vein. Evidence of prior cholecystectomy. Negative for dilated ducts. Prior CT and Us have been reviewed , hepatitis and hiv are both negative. Current the count is closer to 15-35k. --> Peripheral smear ordered and is negative for blasts, has been reviewed --> Abx and other meds have been reviewed. --> hold off heparin, asa, or plavix --> Transfuse plts if plt count >10k or if 20k and with fever --> Agree with lactulose and potential rifaximin for elev ammonia # Coagulopathy is likely related to underlying liver disease, liver us shows " Evidence of chronic liver disease with enlarged fatty liver and stigmata of portal hypertension including hepatofugal portal venous flow." --> no evidence of bleeding hold off unless bleeding is noted --> VIt K or ffp before procedure # Anemia due to gastrointestinal bleed. Hemoglobin on admission 5-8 range, likely bleed related, ferritin is 1125 --> Gastroenterology to evaluate and manage. --> was in the past on octreotide gtt # Anemia of chronic disease, multifactorial --> Previous w/u has been reviewed. --> Will trend CBC daily --> Hgb goal above 7 --> Blood tx: 08/17,08/18, 08/19, 08/23, 08/25, # Acute kidney injury secondary to intravascular volume depletion along with ischemic acute tubular necrosis from hypotension. --> Nephro following. Appreciate recs. # Hyperkalemia secondary to renal insufficiency and gastrointestinal bleed. --> The patient was given Kayexalate 60 g already. 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 Subjective Date patient seen: Aug 28, 2018 Hematologic/Lymphatic: Reports: anemia Allergies: Coded Allergies: LORAZEPAM (Verified Allergy, Unknown, 05/21/18) PENICILLINS (Verified Allergy, Unknown, 05/21/18) All Systems: reviewed and negative except above Subjective Remains in ICU. No acute events. Hgb at 7.2, repeat CBC tomorrow morning. Objective Last 24 Hour Vital Signs Date Time Temp Pulse Resp B/P (MAP) Pulse Ox O2 Delivery O2 Flow Rate FiO2 08/28/18 14:00 82 17 125/62 (83) 100 08/28/18 13:00 98.8 89 15 123/59 (80) 100 98.8 08/28/18 12:00 82 08/28/18 12:00 Nasal Cannula 4.0 08/28/18 12:00 92 15 123/65 (84) 100 08/28/18 11:00 81 14 116/58 (77) 100 08/28/18 10:00 81 17 110/55 (73) 100 08/28/18 09:00 81 22 116/57 (76) 100 08/28/18 08:00 Nasal Cannula 4.0 08/28/18 08:00 98.3 80 16 114/49 (70) 100 98.3 08/28/18 08:00 79 08/28/18 07:00 80 15 110/49 (69) 100 08/28/18 06:00 82 18 107/46 (66) 100 08/28/18 05:00 83 15 110/52 (71) 100 08/28/18 04:00 81 08/28/18 04:00 Nasal Cannula 4.0 08/28/18 04:00 98.2 81 15 109/50 (69) 100 98.2 08/28/18 03:00 86 16 112/52 (72) 100 08/28/18 02:00 83 16 109/51 (70) 100 08/28/18 01:00 83 16 108/51 (70) 100 08/28/18 00:00 84 08/28/18 00:00 Nasal Cannula 4.0 08/28/18 00:00 97.8 84 15 109/50 (69) 100 97.8 08/27/18 23:00 81 15 112/48 (69) 100 08/27/18 22:00 82 14 112/51 (71) 100 08/27/18 21:15 Nasal Cannula 2.0 28 08/27/18 21:14 100 Nasal Cannula 2.0 28 08/27/18 21:00 82 14 107/49 (68) 100 08/27/18 20:00 98.3 83 14 106/59 (75) 100 98.3 08/27/18 20:00 83 08/27/18 20:00 Nasal Cannula 4.0 08/27/18 19:00 84 20 118/52 (74) 100 08/27/18 18:00 79 20 117/55 (75) 100 08/27/18 17:00 80 15 120/56 (77) 100 08/27/18 16:00 Nasal Cannula 4.0 08/27/18 16:00 79 08/27/18 16:00 97.5 79 15 109/53 (71) 100 97.5 08/27/18 15:00 76 13 118/60 (79) 100 Intake and Output 08/27/18 08/28/18 19:00 07:00 Intake Total 985 ml 1080 ml Output Total 570 ml 1615 ml Balance 415 ml -535 ml Free Water 60 ml 150 ml IV Total 625 ml 550 ml Tube Feeding 300 ml 380 ml Output Urine Total 120 ml 15 ml Stool Total 450 ml 200 ml Hemodialysis UF 1400 ml Laboratory Tests 08/28/18 03:30: White Blood Count 9.1, Red Blood Count 2.28L, Hemoglobin 7.2L, Hematocrit 21.9L , Mean Corpuscular Volume 96, Mean Corpuscular Hemoglobin 31.8H, Mean Corpuscular Hemoglobin Concent 33.1, Red Cell Distribution Width 17.9H, Platelet Count 32L, Mean Platelet Volume 10.3H, Neutrophils (%) (Auto) , Lymphocytes (%) (Auto) , Monocytes (%) (Auto) , Eosinophils (%) (Auto) , Basophils (%) (Auto) , Differential Total Cells Counted 100, Neutrophils % ( Manual) 66, Lymphocytes % (Manual) 19L, Monocytes % (Manual) 11H, Eosinophils % (Manual) 3, Basophils % (Manual) 0, Band Neutrophils 1, Platelet Estimate DecreasedL, Platelet Morphology Normal, Hypochromasia 1+, Anisocytosis 1+, Macrocytosis 1+, Prothrombin Time 16.6H, Prothromb Time International Ratio 1.6H , Activated Partial Thromboplast Time 38H, Sodium Level 144, Potassium Level 3.0L, Chloride Level 109H, Carbon Dioxide Level 26, Anion Gap 10, Blood Urea Nitrogen 37H, Creatinine 3.7H, Estimat Glomerular Filtration Rate 13.9, Glucose Level 139H, Calcium Level 8.4L, Phosphorus Level 3.4, Magnesium Level 1.6L, Total Bilirubin 2.4H, Direct Bilirubin 1.7H, Aspartate Amino Transf (AST/SGOT) 66H, Alanine Aminotransferase (ALT/SGPT) 34, Alkaline Phosphatase 140H, Ammonia 121H, Total Protein 6.1L, Albumin 1.8L, Globulin 4.3, Albumin/Globulin Ratio 0.4L Height (Feet): 5 Height (Inches): 3.00 Weight (Pounds): 311 General Appearance: no apparent distress EENT: PERRL/EOMI Neck: normal alignment Cardiovascular: normal peripheral pulses Respiratory/Chest: no respiratory distress Abdomen: soft Michael Hernandez MD Aug 28, 2018 14:56
[2018-08-28] MEDS: Dyna-Hex 2% Top Sol 2oz TOPIC SCH (20:06)
[2018-08-28] MEDS ORDERED: Mylanta II UD 30ml ORAL PRN (21:12)
[2018-08-28] MEDS ORDERED: LORazepam Inj 2mg/ml 1ml IV PRN (21:16)
[2018-08-29] VITALS: BP 115/62
[2018-08-29] MEDS: Lactulose 20gm/30ml UDC ORAL SCH ×4 (01:11→17:14)
[2018-08-29 04:00] VITALS: BP 110/60
[2018-08-29 07:45] VITALS: BP 121/58
[2018-08-29] MEDS: Pantoprazole Inj IVP SCH (08:16)
[2018-08-29 08:19] LABS: MEAN CORPUSCULAR VOLUME 97 FL (80-99); PLATELET COUNT 47 K/UL (150-450); RED BLOOD COUNT 2.16 M/UL (4.20-5.40); RED CELL DISTRIBUTION WIDTH 17.9 % (11.6-14.8); WHITE BLOOD COUNT 9.9 K/UL (4.8-10.8)
--- NOTE | 2018-08-29 08:26 | Nephrology Progress Note ---
Assessment/Plan Assessment/Plan 1. ESRD- multifact ATN ( hypotension/intravasc vol dep/?hepatorenal/Anemia) - ATN nonresolving, ESRD - HD today - Hep panel and tunelled HD catheter ordered 2. Hypok+- replace prn. AM labs pending 3. 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 HypoMag- replace prn 5. GI Bleed/Anemia- per GI mgmt, Octreotide Subjective Date patient seen: Aug 29, 2018 Time patient seen: 08:22 ROS Limited/Unobtainable: No Constitutional: Reports: weakness Allergies: Coded Allergies: LORAZEPAM (Verified Allergy, Unknown, 05/21/18) PENICILLINS (Verified Allergy, Unknown, 05/21/18) Subjective Patient more awake and alert and conversing Objective Last 24 Hour Vital Signs Date Time Temp Pulse Resp B/P (MAP) Pulse Ox O2 Delivery O2 Flow Rate FiO2 08/29/18 07:45 98.6 92 18 121/58 (79) 97 98.6 08/29/18 07:40 Nasal Cannula 4.0 08/29/18 04:00 96.5 62 18 110/60 (77) 97 96.5 08/29/18 00:00 97.7 79 18 115/62 (79) 98 97.7 08/28/18 21:18 97.9 82 18 111/56 (74) 100 97.9 08/28/18 20:00 81 08/28/18 20:00 Nasal Cannula 4.0 08/28/18 20:00 82 13 118/56 (76) 100 08/28/18 19:16 Nasal Cannula 2.0 28 08/28/18 19:16 99 Nasal Cannula 2.0 28 08/28/18 19:00 98.2 83 17 115/55 (75) 100 98.2 08/28/18 18:00 82 17 120/69 (86) 100 08/28/18 17:00 98.4 80 12 118/62 (80) 100 98.4 08/28/18 16:00 82 08/28/18 16:00 80 14 113/53 (73) 100 08/28/18 16:00 Nasal Cannula 4.0 08/28/18 15:00 85 17 114/61 (78) 100 08/28/18 14:00 82 17 125/62 (83) 100 08/28/18 13:00 98.8 89 15 123/59 (80) 100 98.8 08/28/18 12:00 82 08/28/18 12:00 Nasal Cannula 4.0 08/28/18 12:00 92 15 123/65 (84) 100 08/28/18 11:00 81 14 116/58 (77) 100 08/28/18 10:00 81 17 110/55 (73) 100 08/28/18 09:00 81 22 116/57 (76) 100 Intake and Output 08/28/18 08/29/18 19:00 07:00 Intake Total 1090 ml 40 ml Output Total 105 ml 410 ml Balance 985 ml -370 ml Free Water 60 ml IV Total 550 ml Tube Feeding 480 ml 40 ml Output Urine Total 65 ml 350 ml Stool Total 40 ml 60 ml Laboratory Tests 08/29/18 08:00: White Blood Count [Pending], Red Blood Count [Pending], Hemoglobin [Pending], Hematocrit [Pending], Mean Corpuscular Volume [Pending], Mean Corpuscular Hemoglobin [Pending], Mean Corpuscular Hemoglobin Concent [Pending], Red Cell Distribution Width [Pending], Platelet Count [Pending], Mean Platelet Volume [ Pending], Neutrophils (%) (Auto) [Pending], Lymphocytes (%) (Auto) [Pending], Monocytes (%) (Auto) [Pending], Eosinophils (%) (Auto) [Pending], Basophils (%) (Auto) [Pending], Sodium Level [Pending], Potassium Level [Pending], Chloride Level [Pending], Carbon Dioxide Level [Pending], Blood Urea Nitrogen [Pending], Creatinine [Pending], Estimat Glomerular Filtration Rate [Pending], Glucose Level [Pending], Calcium Level [Pending], Phosphorus Level [Pending], Magnesium Level [Pending], Total Bilirubin [Pending], Aspartate Amino Transf (AST/SGOT) [ Pending], Alanine Aminotransferase (ALT/SGPT) [Pending], Alkaline Phosphatase [ Pending], Total Protein [Pending], Albumin [Pending], Globulin [Pending], Hepatitis B Surface Antigen [Pending], Hepatitis B Surface Antibody, Quant [ Pending] Height (Feet): 5 Height (Inches): 3.00 Weight (Pounds): 312 General Appearance: no apparent distress, alert EENT: normal ENT inspection Neck: normal alignment, supple Cardiovascular: normal rate, regular rhythm Respiratory/Chest: rhonchi - bilaterally Abdomen: distended, guarding Edema: 4+ Arm (L), 4+ Arm (R), 4+ Leg (L), 4+ Leg (R), 4+ Pedal (L), 4+ Pedal ( R), 4+ Generalized Amos Pinon MD Aug 29, 2018 08:26
[2018-08-29 08:34] LABS: HEMOGLOBIN 6.9 G/DL (12.0-16.0)
[2018-08-29 08:44] LABS: PHOSPHORUS 3.8 MG/DL (2.5-4.9)
[2018-08-29 08:47] LABS: ALANINE AMINOTRANSFERASE 29 U/L (12-78); ALBUMIN 1.8 G/DL (3.4-5.0); ALBUMIN/GLOBULIN RATIO 0.4 (1.0-2.7); ALKALINE PHOSPHATASE 143 U/L (46-116); ANION GAP 9 mmol/L (5-15); ASPARTATE AMINO TRANSFERASE 63 U/L (15-37); BILIRUBIN,DIRECT 1.6 MG/DL (0.0-0.3); BILIRUBIN,TOTAL 2.4 MG/DL (0.2-1.0); BLOOD UREA NITROGEN 40 mg/dL (7-18); CALCIUM 8.6 MG/DL (8.5-10.1); CARBON DIOXIDE 26 MMOL/L (21-32); CHLORIDE 111 MMOL/L (98-107); CREATININE 3.8 MG/DL (0.55-1.30); SODIUM 146 MMOL/L (136-145)
[2018-08-29] MEDS: Octreotide Acetate 500 MCG in Sodium Chloride 500ML 499 ML IV SCH ×2 (08:59→19:16)
[2018-08-29] MEDS ORDERED: Pantoprazole Inj IVP SCH (09:00)
--- NOTE | 2018-08-29 11:52 | GI Progress Note ---
Assessment/Plan Problems: (1) Ascites ICD Codes: R18.8 - Other ascites SNOMED: 571112579 (2) Alcoholic cirrhosis ICD Codes: K70.30 - Alcoholic cirrhosis of liver without ascites SNOMED: 279333818 (3) Esophageal varices ICD Codes: I85.00 - Esophageal varices without bleeding SNOMED: 29856175 (4) Anemia ICD Codes: D64.9 - Anemia, unspecified SNOMED: 880296620 (5) Chronic renal insufficiency ICD Codes: N18.9 - Chronic kidney disease, unspecified SNOMED: 407015673 (6) Coagulopathy ICD Codes: D68.9 - Coagulation defect, unspecified SNOMED: 12349624 (7) Hemorrhagic shock ICD Codes: R57.8 - Other shock SNOMED: 465863 (8) GI bleed ICD Codes: K92.2 - Gastrointestinal hemorrhage, unspecified SNOMED: 18425373 Status: stable Status Narrative Discussed with Dr. Rodriguez. Assessment/Plan s/p EGD >> Esophageal varices, status post banding x7. dobhoff placed more awake and alert, fu ST evaluation RECOMMENDATIONS: GTFs via dobhoff ppi BID transfuse prn lactulose + Xifaxan very poor prognosis fu labs The patient was seen and examined at bedside and all new and available data was reviewed in the patients chart. I agree with the above findings, impression and plan. (Patient seen earlier today. Signature stamp does not reflect patient encounter time.). - Christopher Rodriguez MD Subjective Subjective limited, confused Objective Last 24 Hour Vital Signs Date Time Temp Pulse Resp B/P (MAP) Pulse Ox O2 Delivery O2 Flow Rate FiO2 08/29/18 10:59 2.0 08/29/18 07:45 98.6 92 18 121/58 (79) 97 98.6 08/29/18 07:40 Nasal Cannula 4.0 08/29/18 04:00 96.5 62 18 110/60 (77) 97 96.5 08/29/18 00:00 97.7 79 18 115/62 (79) 98 97.7 08/28/18 21:18 97.9 82 18 111/56 (74) 100 97.9 08/28/18 20:00 81 08/28/18 20:00 Nasal Cannula 4.0 08/28/18 20:00 82 13 118/56 (76) 100 08/28/18 19:16 Nasal Cannula 2.0 28 08/28/18 19:16 99 Nasal Cannula 2.0 28 08/28/18 19:00 98.2 83 17 115/55 (75) 100 98.2 08/28/18 18:00 82 17 120/69 (86) 100 08/28/18 17:00 98.4 80 12 118/62 (80) 100 98.4 08/28/18 16:00 82 08/28/18 16:00 80 14 113/53 (73) 100 08/28/18 16:00 Nasal Cannula 4.0 08/28/18 15:00 85 17 114/61 (78) 100 08/28/18 14:00 82 17 125/62 (83) 100 08/28/18 13:00 98.8 89 15 123/59 (80) 100 98.8 08/28/18 12:00 82 08/28/18 12:00 Nasal Cannula 4.0 08/28/18 12:00 92 15 123/65 (84) 100 Intake and Output 08/28/18 08/29/18 19:00 07:00 Intake Total 1090 ml 130 ml Output Total 105 ml 410 ml Balance 985 ml -280 ml Free Water 60 ml IV Total 550 ml 50 ml Tube Feeding 480 ml 80 ml Output Urine Total 65 ml 350 ml Stool Total 40 ml 60 ml Laboratory Tests Test 08/29/18 08:00 White Blood Count 9.9 K/UL (4.8-10.8) Red Blood Count 2.16 M/UL (4.20-5.40) L Hemoglobin 6.9 G/DL (12.0-16.0) *L Hematocrit 21.0 % (37.0-47.0) L Mean Corpuscular Volume 97 FL (80-99) Mean Corpuscular Hemoglobin 31.8 PG (27.0-31.0) H Mean Corpuscular Hemoglobin Concent 32.8 G/DL (32.0-36.0) Red Cell Distribution Width 17.9 % (11.6-14.8) H Platelet Count 47 K/UL (150-450) L Mean Platelet Volume 9.9 FL (6.5-10.1) Neutrophils (%) (Auto) % (45.0-75.0) Lymphocytes (%) (Auto) % (20.0-45.0) Monocytes (%) (Auto) % (1.0-10.0) Eosinophils (%) (Auto) % (0.0-3.0) Basophils (%) (Auto) % (0.0-2.0) Differential Total Cells Counted 100 Neutrophils % (Manual) 69 % (45-75) Lymphocytes % (Manual) 21 % (20-45) Monocytes % (Manual) 6 % (1-10) Eosinophils % (Manual) 2 % (0-3) Basophils % (Manual) 0 % (0-2) Band Neutrophils 2 % (0-8) Platelet Estimate Decreased L Platelet Morphology Normal Anisocytosis 1+ Sodium Level 146 MMOL/L (136-145) H Potassium Level 3.0 MMOL/L (3.5-5.1) L Chloride Level 111 MMOL/L (98-107) H Carbon Dioxide Level 26 MMOL/L (21-32) Anion Gap 9 mmol/L (5-15) Blood Urea Nitrogen 40 mg/dL (7-18) H Creatinine 3.8 MG/DL (0.55-1.30) H Estimat Glomerular Filtration Rate 13.4 mL/min (>60) Glucose Level 142 MG/DL (74-106) H Calcium Level 8.6 MG/DL (8.5-10.1) Phosphorus Level 3.8 MG/DL (2.5-4.9) Magnesium Level 1.9 MG/DL (1.8-2.4) Total Bilirubin 2.4 MG/DL (0.2-1.0) H Direct Bilirubin 1.6 MG/DL (0.0-0.3) H Aspartate Amino Transf (AST/SGOT) 63 U/L (15-37) H Alanine Aminotransferase (ALT/SGPT) 29 U/L (12-78) Alkaline Phosphatase 143 U/L (46-116) H Total Protein 6.2 G/DL (6.4-8.2) L Albumin 1.8 G/DL (3.4-5.0) L Globulin 4.4 g/dL Albumin/Globulin Ratio 0.4 (1.0-2.7) L Hepatitis B Surface Antigen Pending Hepatitis B Surface Antibody, Quant Pending Height (Feet): 5 Height (Inches): 3.00 Weight (Pounds): 312 General Appearance: no apparent distress Cardiovascular: normal rate Respiratory/Chest: normal breath sounds, no respiratory distress Abdominal Exam: normal bowel sounds, non tender, soft, other - dobhoff Extremities: non-tender Objective generalized edema Markus Lebron NP Aug 29, 2018 11:52
[2018-08-29 12:03] VITALS: BP 106/67
--- NOTE | 2018-08-29 13:28 | Infectious Diseases Prog Note ---
Assessment/Plan Assessment/Plan The patient is a 38-year-old female with: 1. Probable sepsis, SP -Bcx neg 2. Leukocytosis; SP -CXR: Pulmonary vascular congestion with increased interstitial markings , likely representing interstitial edema. This appears improved relative to the chest x-ray from 07/22/18 3. Urinary tract infection, s/p Rx u/a wbc 60-80, nit+, leuk large; ucx ESBL K. pna ( R zosyn, S ertapenem), Citrobacter freundi (R ancef, I Impienem, S ertapenem) 4. History of hepatitis panel and HIV serology negative. 5. GIB -s/p EGD 08/19: esophageal varices 6. Afebrile. 7.Seizures episodes 08/24 (?related to carbapenem) 8. Acute renal insufficiency.; on HD -Renal US: unremarkable 9. Thrombocytopenia Encephalopathy, multifactorial, ongoin -. Alcoholic cirrhosis. -. Esophageal varices. PLAN: -Continue to monitor off abx -08/25 SP Ertapenem #7 -08/19 SP cefepime and Flagyl #3 -. Monitor BMP. -. Monitor cultures (blood).. -.Renal, GI f/u -seizure precautions -aspiration precautions Thank you, Dr. Chauncey Fuentes, for allowing me to see this patient. I will follow the patient with you during this hospitalization. Subjective Allergies: Coded Allergies: LORAZEPAM (Verified Allergy, Unknown, 05/21/18) PENICILLINS (Verified Allergy, Unknown, 05/21/18) Subjective afebrile no leukocytosis remains off abx Objective Vital Signs Last 24 Hour Vital Signs Date Time Temp Pulse Resp B/P (MAP) Pulse Ox O2 Delivery O2 Flow Rate FiO2 08/29/18 13:02 Nasal Cannula 2.0 08/29/18 12:03 98.6 92 18 106/67 (80) 97 98.6 08/29/18 10:59 2.0 08/29/18 07:45 98.6 92 18 121/58 (79) 97 98.6 08/29/18 07:40 Nasal Cannula 4.0 08/29/18 04:00 96.5 62 18 110/60 (77) 97 96.5 08/29/18 00:00 97.7 79 18 115/62 (79) 98 97.7 08/28/18 21:18 97.9 82 18 111/56 (74) 100 97.9 08/28/18 20:00 81 08/28/18 20:00 Nasal Cannula 4.0 08/28/18 20:00 82 13 118/56 (76) 100 08/28/18 19:16 Nasal Cannula 2.0 28 08/28/18 19:16 99 Nasal Cannula 2.0 28 08/28/18 19:00 98.2 83 17 115/55 (75) 100 98.2 08/28/18 18:00 82 17 120/69 (86) 100 08/28/18 17:00 98.4 80 12 118/62 (80) 100 98.4 08/28/18 16:00 82 08/28/18 16:00 80 14 113/53 (73) 100 08/28/18 16:00 Nasal Cannula 4.0 08/28/18 15:00 85 17 114/61 (78) 100 08/28/18 14:00 82 17 125/62 (83) 100 Height (Feet): 5 Height (Inches): 3.00 Weight (Pounds): 312 Objective HEENT: No pale conjunctivae. CHEST: Clear. HEART: S1 and S2. ABDOMEN: Obese and nontender. EXTREMITIES: No cyanosis at this time. There is no edema. NEUROLOGIC: Awake, but lethargic. Laboratory Tests Test 08/29/18 08:00 White Blood Count 9.9 K/UL (4.8-10.8) Red Blood Count 2.16 M/UL (4.20-5.40) L Hemoglobin 6.9 G/DL (12.0-16.0) *L Hematocrit 21.0 % (37.0-47.0) L Mean Corpuscular Volume 97 FL (80-99) Mean Corpuscular Hemoglobin 31.8 PG (27.0-31.0) H Mean Corpuscular Hemoglobin Concent 32.8 G/DL (32.0-36.0) Red Cell Distribution Width 17.9 % (11.6-14.8) H Platelet Count 47 K/UL (150-450) L Mean Platelet Volume 9.9 FL (6.5-10.1) Neutrophils (%) (Auto) % (45.0-75.0) Lymphocytes (%) (Auto) % (20.0-45.0) Monocytes (%) (Auto) % (1.0-10.0) Eosinophils (%) (Auto) % (0.0-3.0) Basophils (%) (Auto) % (0.0-2.0) Differential Total Cells Counted 100 Neutrophils % (Manual) 69 % (45-75) Lymphocytes % (Manual) 21 % (20-45) Monocytes % (Manual) 6 % (1-10) Eosinophils % (Manual) 2 % (0-3) Basophils % (Manual) 0 % (0-2) Band Neutrophils 2 % (0-8) Platelet Estimate Decreased L Platelet Morphology Normal Anisocytosis 1+ Sodium Level 146 MMOL/L (136-145) H Potassium Level 3.0 MMOL/L (3.5-5.1) L Chloride Level 111 MMOL/L (98-107) H Carbon Dioxide Level 26 MMOL/L (21-32) Anion Gap 9 mmol/L (5-15) Blood Urea Nitrogen 40 mg/dL (7-18) H Creatinine 3.8 MG/DL (0.55-1.30) H Estimat Glomerular Filtration Rate 13.4 mL/min (>60) Glucose Level 142 MG/DL (74-106) H Calcium Level 8.6 MG/DL (8.5-10.1) Phosphorus Level 3.8 MG/DL (2.5-4.9) Magnesium Level 1.9 MG/DL (1.8-2.4) Total Bilirubin 2.4 MG/DL (0.2-1.0) H Direct Bilirubin 1.6 MG/DL (0.0-0.3) H Aspartate Amino Transf (AST/SGOT) 63 U/L (15-37) H Alanine Aminotransferase (ALT/SGPT) 29 U/L (12-78) Alkaline Phosphatase 143 U/L (46-116) H Total Protein 6.2 G/DL (6.4-8.2) L Albumin 1.8 G/DL (3.4-5.0) L Globulin 4.4 g/dL Albumin/Globulin Ratio 0.4 (1.0-2.7) L Hepatitis B Surface Antigen Pending Hepatitis B Surface Antibody, Quant Pending Current Medications Medications (Trade) Dose Ordered Sig/Abner Route PRN Reason Start Time Stop Time Status Last Admin Dose Admin Al Hydroxide/Mg Hydroxide (Mylanta II) 30 ml Q6H PRN ORAL dyspepsia 08/28/18 21:12 09/27/18 21:11 Chlorhexidine Gluconate (Sierra-Hex 2%) 1 applic DAILY@2000 TOPIC 08/29/18 20:00 09/18/18 19:59 Dextrose (Dextrose 50%) 25 ml Q30M PRN IV Hypoglycemia 08/28/18 21:13 09/23/18 21:12 Dextrose (Dextrose 50%) 50 ml Q30M PRN IV Hypoglycemia 08/28/18 21:12 09/16/18 21:11 Lactulose (Cephulac) 30 gm EVERY 6 HOURS ORAL 08/29/18 00:00 09/16/18 11:59 08/29/18 11:58 Lorazepam (Ativan 2mg/ml 1ml) 1 mg Q4H PRN IV For Anxiety or sz 08/28/18 21:16 09/04/18 21:15 Octreotide Acetate 500 mcg/ Sodium Chloride 500 ml @ 50 mls/hr Q10H IV 08/28/18 23:00 09/25/18 22:59 08/29/18 08:59 Ondansetron HCl (Zofran) 4 mg Q6H PRN IVP Nausea & Vomiting 08/28/18 21:16 09/27/18 21:15 Pantoprazole (Protonix) 40 mg DAILY IVP 08/29/18 09:00 09/24/18 05:59 08/29/18 08:16 Rifaximin (Xifaxan) 550 mg EVERY 12 HOURS ORAL 08/29/18 09:00 09/05/18 08:59 Stacy Perdomo M.D. Aug 29, 2018 13:28
--- NOTE | 2018-08-29 14:25 | Pulmonology Progress Note ---
Assessment/Plan Problems: (1) Acute encephalopathy (2) LENI (acute kidney injury) (3) ATN (acute tubular necrosis) (4) Coagulopathy (5) Esophageal varices (6) Alcoholic cirrhosis (7) End stage liver disease Assessment/Plan supportive care on Lactulose check ammonia level on abx check h/h, repeat swallow study Subjective Interval Events: more awake Allergies: Coded Allergies: LORAZEPAM (Verified Allergy, Unknown, 05/21/18) PENICILLINS (Verified Allergy, Unknown, 05/21/18) Objective Last 24 Hour Vital Signs Date Time Temp Pulse Resp B/P (MAP) Pulse Ox O2 Delivery O2 Flow Rate FiO2 08/29/18 13:02 Nasal Cannula 2.0 08/29/18 12:03 98.6 92 18 106/67 (80) 97 98.6 08/29/18 10:59 2.0 08/29/18 07:45 98.6 92 18 121/58 (79) 97 98.6 08/29/18 07:40 Nasal Cannula 4.0 08/29/18 04:00 96.5 62 18 110/60 (77) 97 96.5 08/29/18 00:00 97.7 79 18 115/62 (79) 98 97.7 08/28/18 21:18 97.9 82 18 111/56 (74) 100 97.9 08/28/18 20:00 81 08/28/18 20:00 Nasal Cannula 4.0 08/28/18 20:00 82 13 118/56 (76) 100 08/28/18 19:16 Nasal Cannula 2.0 28 08/28/18 19:16 99 Nasal Cannula 2.0 28 08/28/18 19:00 98.2 83 17 115/55 (75) 100 98.2 08/28/18 18:00 82 17 120/69 (86) 100 08/28/18 17:00 98.4 80 12 118/62 (80) 100 98.4 08/28/18 16:00 82 08/28/18 16:00 80 14 113/53 (73) 100 08/28/18 16:00 Nasal Cannula 4.0 08/28/18 15:00 85 17 114/61 (78) 100 Intake and Output 08/28/18 08/29/18 19:00 07:00 Intake Total 1090 ml 130 ml Output Total 105 ml 410 ml Balance 985 ml -280 ml Free Water 60 ml IV Total 550 ml 50 ml Tube Feeding 480 ml 80 ml Output Urine Total 65 ml 350 ml Stool Total 40 ml 60 ml General Appearance: WD/WN HEENT: normocephalic Respiratory/Chest: chest wall non-tender, lungs clear Cardiovascular: normal peripheral pulses, normal rate Extremities: no cyanosis Skin: no rash Laboratory Tests 08/29/18 08:00: White Blood Count 9.9, Red Blood Count 2.16L, Hemoglobin 6.9*L, Hematocrit 21.0L , Mean Corpuscular Volume 97, Mean Corpuscular Hemoglobin 31.8H, Mean Corpuscular Hemoglobin Concent 32.8, Red Cell Distribution Width 17.9H, Platelet Count 47L, Mean Platelet Volume 9.9, Neutrophils (%) (Auto) , Lymphocytes (%) (Auto) , Monocytes (%) (Auto) , Eosinophils (%) (Auto) , Basophils (%) (Auto) , Differential Total Cells Counted 100, Neutrophils % ( Manual) 69, Lymphocytes % (Manual) 21, Monocytes % (Manual) 6, Eosinophils % ( Manual) 2, Basophils % (Manual) 0, Band Neutrophils 2, Platelet Estimate DecreasedL, Platelet Morphology Normal, Anisocytosis 1+, Sodium Level 146H, Potassium Level 3.0L, Chloride Level 111H, Carbon Dioxide Level 26, Anion Gap 9 , Blood Urea Nitrogen 40H, Creatinine 3.8H, Estimat Glomerular Filtration Rate 13.4, Glucose Level 142H, Calcium Level 8.6, Phosphorus Level 3.8, Magnesium Level 1.9, Total Bilirubin 2.4H, Direct Bilirubin 1.6H, Aspartate Amino Transf ( AST/SGOT) 63H, Alanine Aminotransferase (ALT/SGPT) 29, Alkaline Phosphatase 143H , Total Protein 6.2L, Albumin 1.8L, Globulin 4.4, Albumin/Globulin Ratio 0.4L, Hepatitis B Surface Antigen [Pending], Hepatitis B Surface Antibody, Quant [ Pending] Current Medications Medications (Trade) Dose Ordered Sig/Abner Route PRN Reason Start Time Stop Time Status Last Admin Dose Admin Al Hydroxide/Mg Hydroxide (Mylanta II) 30 ml Q6H PRN ORAL dyspepsia 08/28/18 21:12 09/27/18 21:11 Chlorhexidine Gluconate (Sierra-Hex 2%) 1 applic DAILY@1999 TOPIC 08/29/18 20:00 09/18/18 19:59 Dextrose (Dextrose 50%) 25 ml Q30M PRN IV Hypoglycemia 08/28/18 21:13 09/23/18 21:12 Dextrose (Dextrose 50%) 50 ml Q30M PRN IV Hypoglycemia 08/28/18 21:12 09/16/18 21:11 Lactulose (Cephulac) 30 gm EVERY 6 HOURS ORAL 08/29/18 00:00 09/16/18 11:59 08/29/18 11:58 Lorazepam (Ativan 2mg/ml 1ml) 1 mg Q4H PRN IV For Anxiety or sz 08/28/18 21:16 09/04/18 21:15 Octreotide Acetate 500 mcg/ Sodium Chloride 500 ml @ 50 mls/hr Q10H IV 08/28/18 23:00 09/25/18 22:59 08/29/18 08:59 Ondansetron HCl (Zofran) 4 mg Q6H PRN IVP Nausea & Vomiting 08/28/18 21:16 09/27/18 21:15 Pantoprazole (Protonix) 40 mg DAILY IVP 08/29/18 09:00 09/24/18 05:59 08/29/18 08:16 Rifaximin (Xifaxan) 550 mg EVERY 12 HOURS ORAL 08/29/18 09:00 09/05/18 08:59 Jose Roberto Burleson MD Aug 29, 2018 14:25
--- NOTE | 2018-08-29 14:33 | General Progress Note ---
Assessment/Plan Problem List: (1) Edema ICD Codes: R60.9 - Edema, unspecified SNOMED: 515179047, 680390591 (2) Anemia ICD Codes: D64.9 - Anemia, unspecified SNOMED: 830381757 (3) Alcoholic cirrhosis ICD Codes: K70.30 - Alcoholic cirrhosis of liver without ascites SNOMED: 244798388 (4) Esophageal varices ICD Codes: I85.00 - Esophageal varices without bleeding SNOMED: 26926499 (5) Leukocytosis ICD Codes: D72.829 - Elevated white blood cell count, unspecified SNOMED: 325710219, 416711528 (6) GI bleed ICD Codes: K92.2 - Gastrointestinal hemorrhage, unspecified SNOMED: 63513315 (7) LENI (acute kidney injury) ICD Codes: N17.9 - Acute kidney failure, unspecified SNOMED: 64671509 (8) Sepsis ICD Codes: A41.9 - Sepsis, unspecified organism SNOMED: 25976077 (9) Seizure ICD Codes: R56.9 - Unspecified convulsions SNOMED: 76762219 Status: unchanged Assessment/Plan abx oe pulm tx transfuse prn gi heme f/u dialysis prn seizure control cbc bmp am promise ltach if clear Subjective Constitutional: Reports: weakness Allergies: Coded Allergies: LORAZEPAM (Verified Allergy, Unknown, 05/21/18) PENICILLINS (Verified Allergy, Unknown, 05/21/18) All Systems: reviewed and negative except above Subjective 02nc ng Objective Last 24 Hour Vital Signs Date Time Temp Pulse Resp B/P (MAP) Pulse Ox O2 Delivery O2 Flow Rate FiO2 08/29/18 13:02 Nasal Cannula 2.0 08/29/18 12:03 98.6 92 18 106/67 (80) 97 98.6 08/29/18 10:59 2.0 08/29/18 07:45 98.6 92 18 121/58 (79) 97 98.6 08/29/18 07:40 Nasal Cannula 4.0 08/29/18 04:00 96.5 62 18 110/60 (77) 97 96.5 08/29/18 00:00 97.7 79 18 115/62 (79) 98 97.7 08/28/18 21:18 97.9 82 18 111/56 (74) 100 97.9 08/28/18 20:00 81 08/28/18 20:00 Nasal Cannula 4.0 08/28/18 20:00 82 13 118/56 (76) 100 08/28/18 19:16 Nasal Cannula 2.0 28 08/28/18 19:16 99 Nasal Cannula 2.0 28 08/28/18 19:00 98.2 83 17 115/55 (75) 100 98.2 08/28/18 18:00 82 17 120/69 (86) 100 08/28/18 17:00 98.4 80 12 118/62 (80) 100 98.4 08/28/18 16:00 82 08/28/18 16:00 80 14 113/53 (73) 100 08/28/18 16:00 Nasal Cannula 4.0 08/28/18 15:00 85 17 114/61 (78) 100 Intake and Output 08/28/18 08/29/18 19:00 07:00 Intake Total 1090 ml 130 ml Output Total 105 ml 410 ml Balance 985 ml -280 ml Free Water 60 ml IV Total 550 ml 50 ml Tube Feeding 480 ml 80 ml Output Urine Total 65 ml 350 ml Stool Total 40 ml 60 ml Laboratory Tests 08/29/18 08:00: White Blood Count 9.9, Red Blood Count 2.16L, Hemoglobin 6.9*L, Hematocrit 21.0L , Mean Corpuscular Volume 97, Mean Corpuscular Hemoglobin 31.8H, Mean Corpuscular Hemoglobin Concent 32.8, Red Cell Distribution Width 17.9H, Platelet Count 47L, Mean Platelet Volume 9.9, Neutrophils (%) (Auto) , Lymphocytes (%) (Auto) , Monocytes (%) (Auto) , Eosinophils (%) (Auto) , Basophils (%) (Auto) , Differential Total Cells Counted 100, Neutrophils % ( Manual) 69, Lymphocytes % (Manual) 21, Monocytes % (Manual) 6, Eosinophils % ( Manual) 2, Basophils % (Manual) 0, Band Neutrophils 2, Platelet Estimate DecreasedL, Platelet Morphology Normal, Anisocytosis 1+, Sodium Level 146H, Potassium Level 3.0L, Chloride Level 111H, Carbon Dioxide Level 26, Anion Gap 9 , Blood Urea Nitrogen 40H, Creatinine 3.8H, Estimat Glomerular Filtration Rate 13.4, Glucose Level 142H, Calcium Level 8.6, Phosphorus Level 3.8, Magnesium Level 1.9, Total Bilirubin 2.4H, Direct Bilirubin 1.6H, Aspartate Amino Transf ( AST/SGOT) 63H, Alanine Aminotransferase (ALT/SGPT) 29, Alkaline Phosphatase 143H , Total Protein 6.2L, Albumin 1.8L, Globulin 4.4, Albumin/Globulin Ratio 0.4L, Hepatitis B Surface Antigen [Pending], Hepatitis B Surface Antibody, Quant [ Pending] Height (Feet): 5 Height (Inches): 3.00 Weight (Pounds): 312 General Appearance: lethargic EENT: normal ENT inspection Neck: non-tender, normal alignment Cardiovascular: normal peripheral pulses, normal rate, regular rhythm Respiratory/Chest: chest wall non-tender, decreased breath sounds Abdomen: normal bowel sounds, non tender, no organomegaly Extremities: normal inspection Edema: 1+ Arm (L), 1+ Arm (R), 1+ Leg (L), 1+ Leg (R), 1+ Pedal (L), 1+ Pedal ( R), 1+ Generalized Edema: trace edema Neurologic: motor weakness Skin: normal pigmentation, warm/dry Chauncey Fuentes DO Aug 29, 2018 14:33
[2018-08-29 15:55] VITALS: BP 123/67
--- NOTE | 2018-08-29 19:12 | General Progress Note ---
Assessment/Plan Assessment/Plan # Thrombocytopenia. Baseline appears to be 50-80k. Is most likely related to underlying liver disease with e/o portal htn. Hx of ETOH use. She does have evidence of hepatic cirrhosis, with surface nodularity an increased echogenicity. Evidence of portal hypertension, with ascites, splenomegaly, and flow reversal within the main and right portal vein. Evidence of prior cholecystectomy. Negative for dilated ducts. Prior CT and Us have been reviewed , hepatitis and hiv are both negative. Current the count is closer to 15-50k. --> Peripheral smear ordered and is negative for blasts, has been reviewed --> Abx and other meds have been reviewed. --> hold off heparin, asa, or plavix --> Transfuse plts if plt count >10k or if 20k and with fever --> Agree with lactulose and potential rifaximin for elev ammonia # Coagulopathy is likely related to underlying liver disease, liver us shows " Evidence of chronic liver disease with enlarged fatty liver and stigmata of portal hypertension including hepatofugal portal venous flow." --> no evidence of bleeding hold off unless bleeding is noted --> VIt K or ffp before procedure # Anemia due to gastrointestinal bleed. Hemoglobin on admission 5-8 range, likely bleed related, ferritin is 1125 --> Gastroenterology to evaluate and manage. --> was in the past on octreotide drip --> now need transfusions hgb goal >7 # Anemia of chronic disease, multifactorial --> Previous w/u has been reviewed. --> Will trend CBC daily --> Hgb goal above 7 --> Blood tx: 08/17,08/18, 08/19, 08/23, 08/25, # Acute kidney injury secondary to intravascular volume depletion along with ischemic acute tubular necrosis from hypotension. --> Nephro following. Appreciate recs. # Hyperkalemia secondary to renal insufficiency and gastrointestinal bleed. --> The patient was given Kayexalate 60 g already. 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 Subjective Constitutional: Denies: no symptoms, chills, diaphoresis, fever, malaise, weakness, other HEENT: Denies: no symptoms, eye pain, blurred vision, tearing, double vision, ear pain, ear discharge, nose pain, nose congestion, throat pain, throat swelling, mouth pain, mouth swelling, other Cardiovascular: Denies: no symptoms, chest pain, edema, irregular heart rate, lightheadedness, palpitations, syncope, other Respiratory: Denies: no symptoms, cough, orthopnea, shortness of breath, SOB with excertion, SOB at rest, sputum, stridor, wheezing, other Gastrointestinal/Abdominal: Denies: no symptoms, abdomen distended, abdominal pain, black stools, tarry stools, blood in stool, constipated, diarrhea, difficulty swallowing, nausea, poor appetite, poor fluid intake, rectal bleeding , vomiting, other Genitourinary: Denies: no symptoms, burning, discharge, frequency, flank pain, hematuria, incontinence, pain, urgency, other Neurologic/Psychiatric: Denies: no symptoms, anxiety, depressed, emotional problems, headache, numbness, paresthesia, pre-existing deficit, seizure, tingling, tremors, weakness, other Endocrine: Denies: no symptoms, excessive sweating, flushing, intolerance to cold, intolerance to heat, increased hunger, increased thirst, increased urine, unexplained weight gain, unexplained weight loss, other Hematologic/Lymphatic: Denies: no symptoms, anemia, easy bleeding, easy bruising, other Allergies: Coded Allergies: LORAZEPAM (Verified Allergy, Unknown, 05/21/18) PENICILLINS (Verified Allergy, Unknown, 05/21/18) Subjective Remains in ICU. No acute events. Hgb at 7.2, repeat CBC tomorrow morning. Objective Last 24 Hour Vital Signs Date Time Temp Pulse Resp B/P (MAP) Pulse Ox O2 Delivery O2 Flow Rate FiO2 08/29/18 19:06 98 Nasal Cannula 2.0 28 08/29/18 19:06 Nasal Cannula 2.0 28 08/29/18 15:55 98.2 86 18 123/67 (85) 95 98.2 08/29/18 13:02 Nasal Cannula 2.0 08/29/18 12:03 98.6 92 18 106/67 (80) 97 98.6 08/29/18 10:59 2.0 08/29/18 07:45 98.6 92 18 121/58 (79) 97 98.6 08/29/18 07:40 Nasal Cannula 4.0 08/29/18 04:00 96.5 62 18 110/60 (77) 97 96.5 08/29/18 00:00 97.7 79 18 115/62 (79) 98 97.7 08/28/18 21:18 97.9 82 18 111/56 (74) 100 97.9 08/28/18 20:00 81 08/28/18 20:00 Nasal Cannula 4.0 08/28/18 20:00 82 13 118/56 (76) 100 08/28/18 19:16 Nasal Cannula 2.0 28 08/28/18 19:16 99 Nasal Cannula 2.0 28 Intake and Output 08/28/18 08/29/18 19:00 07:00 Intake Total 1090 ml 130 ml Output Total 105 ml 410 ml Balance 985 ml -280 ml Free Water 60 ml IV Total 550 ml 50 ml Tube Feeding 480 ml 80 ml Output Urine Total 65 ml 350 ml Stool Total 40 ml 60 ml Laboratory Tests 08/29/18 08:00: White Blood Count 9.9, Red Blood Count 2.16L, Hemoglobin 6.9*L, Hematocrit 21.0L , Mean Corpuscular Volume 97, Mean Corpuscular Hemoglobin 31.8H, Mean Corpuscular Hemoglobin Concent 32.8, Red Cell Distribution Width 17.9H, Platelet Count 47L, Mean Platelet Volume 9.9, Neutrophils (%) (Auto) , Lymphocytes (%) (Auto) , Monocytes (%) (Auto) , Eosinophils (%) (Auto) , Basophils (%) (Auto) , Differential Total Cells Counted 100, Neutrophils % ( Manual) 69, Lymphocytes % (Manual) 21, Monocytes % (Manual) 6, Eosinophils % ( Manual) 2, Basophils % (Manual) 0, Band Neutrophils 2, Platelet Estimate DecreasedL, Platelet Morphology Normal, Anisocytosis 1+, Sodium Level 146H, Potassium Level 3.0L, Chloride Level 111H, Carbon Dioxide Level 26, Anion Gap 9 , Blood Urea Nitrogen 40H, Creatinine 3.8H, Estimat Glomerular Filtration Rate 13.4, Glucose Level 142H, Calcium Level 8.6, Phosphorus Level 3.8, Magnesium Level 1.9, Total Bilirubin 2.4H, Direct Bilirubin 1.6H, Aspartate Amino Transf ( AST/SGOT) 63H, Alanine Aminotransferase (ALT/SGPT) 29, Alkaline Phosphatase 143H , Total Protein 6.2L, Albumin 1.8L, Globulin 4.4, Albumin/Globulin Ratio 0.4L, Hepatitis B Surface Antigen [Pending], Hepatitis B Surface Antibody, Quant [ Pending] Height (Feet): 5 Height (Inches): 3.00 Weight (Pounds): 312 General Appearance: alert EENT: normal ENT inspection Neck: supple Cardiovascular: regular rhythm Respiratory/Chest: normal breath sounds Abdomen: soft Extremities: non-tender Edema: 1+ Leg (L), 1+ Leg (R) Edema: mild edema Neurologic: alert Skin: normal pigmentation Michael Hernandez MD Aug 29, 2018 19:12
[2018-08-29 20:00] VITALS: BP 110/57
[2018-08-29] MEDS: Dyna-Hex 2% Top Sol 2oz TOPIC SCH (20:07)
[2018-08-30] VITALS (11 sets, daily range): BP systolic 106–125; BP diastolic 47–69
[2018-08-30] MEDS: Lactulose 20gm/30ml UDC ORAL SCH ×4 (01:17→17:09)
[2018-08-30] MEDS: Octreotide Acetate 500 MCG in Sodium Chloride 500ML 499 ML IV SCH ×2 (05:38→14:52)
[2018-08-30] MEDS: Morphine Sulfate 2mg/ml Inj IVP PRN ×3 (06:33→21:38)
--- NOTE | 2018-08-30 08:05 | Nephrology Progress Note ---
Assessment/Plan Assessment/Plan 1. ESRD- multifact ATN ( hypotension/intravasc vol dep/?hepatorenal/Anemia) - ATN nonresolving, ESRD, permacath pending - TTS 2. Hypok+- replace prn as AM labs pending 3. 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 HypoMag- replace prn. AM labs pending 5. GI Bleed/Anemia- per GI mgmt, Octreotide - prn blood tx Subjective Date patient seen: Aug 30, 2018 Time patient seen: 08:03 ROS Limited/Unobtainable: No Constitutional: Reports: weakness Allergies: Coded Allergies: LORAZEPAM (Verified Allergy, Unknown, 05/21/18) PENICILLINS (Verified Allergy, Unknown, 05/21/18) Subjective Patient more awake and alert, pending placement Objective Last 24 Hour Vital Signs Date Time Temp Pulse Resp B/P (MAP) Pulse Ox O2 Delivery O2 Flow Rate FiO2 08/30/18 07:52 Nasal Cannula 2.0 08/30/18 07:25 96 Nasal Cannula 2.0 28 08/30/18 07:25 Nasal Cannula 2.0 28 08/30/18 06:33 98.4 08/30/18 04:00 98.4 92 16 107/47 (67) 95 98.4 08/30/18 00:00 98.1 90 18 106/54 (71) 96 98.1 08/29/18 21:00 Nasal Cannula 2.0 08/29/18 20:00 97.9 88 18 110/57 (74) 98 97.9 08/29/18 19:06 98 Nasal Cannula 2.0 28 08/29/18 19:06 Nasal Cannula 2.0 28 08/29/18 15:55 98.2 86 18 123/67 (85) 95 98.2 08/29/18 13:02 Nasal Cannula 2.0 08/29/18 12:03 98.6 92 18 106/67 (80) 97 98.6 08/29/18 10:59 2.0 Intake and Output 08/29/18 08/30/18 19:00 07:00 Intake Total 1110 ml 910 ml Output Total 2000 ml 1900 ml Balance -890 ml -990 ml Free Water 50 ml 210 ml IV Total 550 ml 500 ml Tube Feeding 200 ml 200 ml Blood Product 310 ml Output Urine Total 1000 ml Stool Total 900 ml Hemodialysis UF 2000 ml # Bowel Movements 2 Laboratory Tests 08/30/18 06:00: White Blood Count [Pending], Red Blood Count [Pending], Hemoglobin [Pending], Hematocrit [Pending], Mean Corpuscular Volume [Pending], Mean Corpuscular Hemoglobin [Pending], Mean Corpuscular Hemoglobin Concent [Pending], Red Cell Distribution Width [Pending], Platelet Count [Pending], Mean Platelet Volume [ Pending], Neutrophils (%) (Auto) [Pending], Lymphocytes (%) (Auto) [Pending], Monocytes (%) (Auto) [Pending], Eosinophils (%) (Auto) [Pending], Basophils (%) (Auto) [Pending], Sodium Level [Pending], Potassium Level [Pending], Chloride Level [Pending], Carbon Dioxide Level [Pending], Blood Urea Nitrogen [Pending], Creatinine [Pending], Estimat Glomerular Filtration Rate [Pending], Glucose Level [Pending], Calcium Level [Pending], Total Bilirubin [Pending], Direct Bilirubin [Pending], Aspartate Amino Transf (AST/SGOT) [Pending], Alanine Aminotransferase (ALT/SGPT) [Pending], Alkaline Phosphatase [Pending], Total Protein [Pending], Albumin [Pending] Height (Feet): 5 Height (Inches): 3.00 Weight (Pounds): 310 General Appearance: no apparent distress, alert EENT: normal ENT inspection Neck: normal alignment, supple Cardiovascular: normal rate, regular rhythm Respiratory/Chest: lungs clear, normal breath sounds Abdomen: distended Edema: 4+ Arm (L), 4+ Arm (R), 4+ Leg (L), 4+ Leg (R), 4+ Pedal (L), 4+ Pedal ( R), 4+ Generalized Amos Pinon MD Aug 30, 2018 08:05
[2018-08-30 08:06] LABS: HEMATOCRIT 24.9 % (37.0-47.0); HEMOGLOBIN 8.4 G/DL (12.0-16.0); MEAN CORPUSCULAR VOLUME 93 FL (80-99); PLATELET COUNT 61 K/UL (150-450); RED BLOOD COUNT 2.66 M/UL (4.20-5.40); RED CELL DISTRIBUTION WIDTH 17.4 % (11.6-14.8); WHITE BLOOD COUNT 9.9 K/UL (4.8-10.8)
[2018-08-30 08:14] LABS: ANION GAP 7 mmol/L (5-15); BLOOD UREA NITROGEN 32 mg/dL (7-18); CALCIUM 8.6 MG/DL (8.5-10.1); CARBON DIOXIDE 28 MMOL/L (21-32); CHLORIDE 110 MMOL/L (98-107); CREATININE 3.3 MG/DL (0.55-1.30); POTASSIUM 3.2 MMOL/L (3.5-5.1); SODIUM 145 MMOL/L (136-145)
[2018-08-30 08:22] LABS: ALANINE AMINOTRANSFERASE 24 U/L (12-78); ALBUMIN 1.8 G/DL (3.4-5.0); ALKALINE PHOSPHATASE 148 U/L (46-116); ASPARTATE AMINO TRANSFERASE 59 U/L (15-37); BILIRUBIN,DIRECT 1.8 MG/DL (0.0-0.3); BILIRUBIN,TOTAL 2.8 MG/DL (0.2-1.0)
[2018-08-30] MEDS: Pantoprazole Inj IVP SCH (08:44)
[2018-08-30] MEDS ORDERED: NS 275ml ONE ×2 (10:45)
[2018-08-30] MEDS ORDERED: Tubing IV Secondary IV ONE (10:45)
[2018-08-30] MEDS ORDERED: D5 1/2NS 1000ml IV ONE (10:45)
--- NOTE | 2018-08-30 11:16 | GI Progress Note ---
Assessment/Plan Problems: (1) Ascites ICD Codes: R18.8 - Other ascites SNOMED: 438120208 (2) Alcoholic cirrhosis ICD Codes: K70.30 - Alcoholic cirrhosis of liver without ascites SNOMED: 942984841 (3) Esophageal varices ICD Codes: I85.00 - Esophageal varices without bleeding SNOMED: 71853431 (4) Anemia ICD Codes: D64.9 - Anemia, unspecified SNOMED: 931761644 (5) Chronic renal insufficiency ICD Codes: N18.9 - Chronic kidney disease, unspecified SNOMED: 765850796 (6) Coagulopathy ICD Codes: D68.9 - Coagulation defect, unspecified SNOMED: 10312509 (7) Hemorrhagic shock ICD Codes: R57.8 - Other shock SNOMED: 409552 (8) GI bleed ICD Codes: K92.2 - Gastrointestinal hemorrhage, unspecified SNOMED: 60584197 Status: stable Status Narrative Discussed with Dr. Rodriguez. Assessment/Plan s/p EGD >> Esophageal varices, status post banding x7. more awake and alert, ST evaluation >> passed RECOMMENDATIONS: dc dobhoff, advance to low sodium diet ppi BID transfuse prn lactulose + Xifaxan very poor prognosis portal HTN management with propranolol fu labs The patient was seen and examined at bedside and all new and available data was reviewed in the patients chart. I agree with the above findings, impression and plan. (Patient seen earlier today. Signature stamp does not reflect patient encounter time.). - Christopher Rodriguez MD Subjective Subjective limited, confused Objective Last 24 Hour Vital Signs Date Time Temp Pulse Resp B/P (MAP) Pulse Ox O2 Delivery O2 Flow Rate FiO2 08/30/18 08:00 98.2 95 18 114/58 (76) 97 98.2 08/30/18 07:52 Nasal Cannula 2.0 08/30/18 07:25 96 Nasal Cannula 2.0 28 08/30/18 07:25 Nasal Cannula 2.0 28 08/30/18 06:33 98.4 08/30/18 04:00 98.4 92 16 107/47 (67) 95 98.4 08/30/18 00:00 98.1 90 18 106/54 (71) 96 98.1 08/29/18 21:00 Nasal Cannula 2.0 08/29/18 20:00 97.9 88 18 110/57 (74) 98 97.9 08/29/18 19:06 98 Nasal Cannula 2.0 28 08/29/18 19:06 Nasal Cannula 2.0 28 08/29/18 15:55 98.2 86 18 123/67 (85) 95 98.2 08/29/18 13:02 Nasal Cannula 2.0 08/29/18 12:03 98.6 92 18 106/67 (80) 97 98.6 Intake and Output 08/29/18 08/30/18 19:00 07:00 Intake Total 1110 ml 910 ml Output Total 2000 ml 1900 ml Balance -890 ml -990 ml Free Water 50 ml 210 ml IV Total 550 ml 500 ml Tube Feeding 200 ml 200 ml Blood Product 310 ml Output Urine Total 1000 ml Stool Total 900 ml Hemodialysis UF 2000 ml # Bowel Movements 2 Laboratory Tests Test 08/30/18 06:00 White Blood Count 9.9 K/UL (4.8-10.8) Red Blood Count 2.66 M/UL (4.20-5.40) L Hemoglobin 8.4 G/DL (12.0-16.0) L Hematocrit 24.9 % (37.0-47.0) L Mean Corpuscular Volume 93 FL (80-99) Mean Corpuscular Hemoglobin 31.4 PG (27.0-31.0) H Mean Corpuscular Hemoglobin Concent 33.6 G/DL (32.0-36.0) Red Cell Distribution Width 17.4 % (11.6-14.8) H Platelet Count 61 K/UL (150-450) L Mean Platelet Volume 12.4 FL (6.5-10.1) H Neutrophils (%) (Auto) % (45.0-75.0) Lymphocytes (%) (Auto) % (20.0-45.0) Monocytes (%) (Auto) % (1.0-10.0) Eosinophils (%) (Auto) % (0.0-3.0) Basophils (%) (Auto) % (0.0-2.0) Differential Total Cells Counted 100 Neutrophils % (Manual) 65 % (45-75) Lymphocytes % (Manual) 27 % (20-45) Monocytes % (Manual) 7 % (1-10) Eosinophils % (Manual) 1 % (0-3) Basophils % (Manual) 0 % (0-2) Band Neutrophils 0 % (0-8) Platelet Estimate Decreased L Platelet Morphology Normal Hypochromasia 2+ Anisocytosis 1+ Spherocytes 1+ Sodium Level 145 MMOL/L (136-145) Potassium Level 3.2 MMOL/L (3.5-5.1) L Chloride Level 110 MMOL/L (98-107) H Carbon Dioxide Level 28 MMOL/L (21-32) Anion Gap 7 mmol/L (5-15) Blood Urea Nitrogen 32 mg/dL (7-18) H Creatinine 3.3 MG/DL (0.55-1.30) H Estimat Glomerular Filtration Rate 15.8 mL/min (>60) Glucose Level 127 MG/DL (74-106) H Calcium Level 8.6 MG/DL (8.5-10.1) Total Bilirubin 2.8 MG/DL (0.2-1.0) H Direct Bilirubin 1.8 MG/DL (0.0-0.3) H Aspartate Amino Transf (AST/SGOT) 59 U/L (15-37) H Alanine Aminotransferase (ALT/SGPT) 24 U/L (12-78) Alkaline Phosphatase 148 U/L (46-116) H Total Protein 6.5 G/DL (6.4-8.2) Albumin 1.8 G/DL (3.4-5.0) L Height (Feet): 5 Height (Inches): 3.00 Weight (Pounds): 310 General Appearance: alert Cardiovascular: normal rate Respiratory/Chest: normal breath sounds, no respiratory distress Abdominal Exam: soft Objective generalized edema Markus Lebron [employer]ESS [employer]OL [employer]KER Aug 30, 2018 11:16
--- NOTE | 2018-08-30 12:39 | Infectious Diseases Prog Note ---
Assessment/Plan Assessment/Plan The patient is a 38-year-old female with: 1. Probable sepsis, SP -Bcx neg 2. Leukocytosis; SP -CXR: Pulmonary vascular congestion with increased interstitial markings , likely representing interstitial edema. This appears improved relative to the chest x-ray from 07/22/18 3. Urinary tract infection, s/p Rx u/a wbc 60-80, nit+, leuk large; ucx ESBL K. pna ( R zosyn, S ertapenem), Citrobacter freundi (R ancef, I Impienem, S ertapenem) 4. History of hepatitis panel and HIV serology negative. 5. GIB -s/p EGD 08/19: esophageal varices 6. Afebrile. 7.Seizures episodes 08/24 (?related to carbapenem) 8. Acute renal insufficiency.; on HD -Renal US: unremarkable 9. Thrombocytopenia Encephalopathy, multifactorial, ongoin -. Alcoholic cirrhosis. -. Esophageal varices. PLAN: -Continue to monitor off abx -08/25 SP Ertapenem #7 -08/19 SP cefepime and Flagyl #3 -. Monitor BMP. -. Monitor cultures (blood).. -.Renal, GI f/u -seizure precautions -aspiration precautions Thank you, Dr. Chauncey Fuentes, for allowing me to see this patient. I will follow the patient with you during this hospitalization. Subjective Allergies: Coded Allergies: LORAZEPAM (Verified Allergy, Unknown, 05/21/18) PENICILLINS (Verified Allergy, Unknown, 05/21/18) Subjective afebrile no leukocytosis remains off abx Objective Vital Signs Last 24 Hour Vital Signs Date Time Temp Pulse Resp B/P (MAP) Pulse Ox O2 Delivery O2 Flow Rate FiO2 08/30/18 12:00 98.2 97 18 117/50 (72) 95 98.2 08/30/18 08:00 98.2 95 18 114/58 (76) 97 98.2 08/30/18 07:52 Nasal Cannula 2.0 08/30/18 07:25 96 Nasal Cannula 2.0 28 08/30/18 07:25 Nasal Cannula 2.0 28 08/30/18 06:33 98.4 08/30/18 04:00 98.4 92 16 107/47 (67) 95 98.4 08/30/18 00:00 98.1 90 18 106/54 (71) 96 98.1 08/29/18 21:00 Nasal Cannula 2.0 08/29/18 20:00 97.9 88 18 110/57 (74) 98 97.9 08/29/18 19:06 98 Nasal Cannula 2.0 28 08/29/18 19:06 Nasal Cannula 2.0 28 08/29/18 15:55 98.2 86 18 123/67 (85) 95 98.2 08/29/18 13:02 Nasal Cannula 2.0 Height (Feet): 5 Height (Inches): 3.00 Weight (Pounds): 310 Objective HEENT: No pale conjunctivae. CHEST: Clear. HEART: S1 and S2. ABDOMEN: Obese and nontender. EXTREMITIES: No cyanosis at this time. There is no edema. NEUROLOGIC: Awake, but lethargic. Laboratory Tests Test 08/30/18 06:00 White Blood Count 9.9 K/UL (4.8-10.8) Red Blood Count 2.66 M/UL (4.20-5.40) L Hemoglobin 8.4 G/DL (12.0-16.0) L Hematocrit 24.9 % (37.0-47.0) L Mean Corpuscular Volume 93 FL (80-99) Mean Corpuscular Hemoglobin 31.4 PG (27.0-31.0) H Mean Corpuscular Hemoglobin Concent 33.6 G/DL (32.0-36.0) Red Cell Distribution Width 17.4 % (11.6-14.8) H Platelet Count 61 K/UL (150-450) L Mean Platelet Volume 12.4 FL (6.5-10.1) H Neutrophils (%) (Auto) % (45.0-75.0) Lymphocytes (%) (Auto) % (20.0-45.0) Monocytes (%) (Auto) % (1.0-10.0) Eosinophils (%) (Auto) % (0.0-3.0) Basophils (%) (Auto) % (0.0-2.0) Differential Total Cells Counted 100 Neutrophils % (Manual) 65 % (45-75) Lymphocytes % (Manual) 27 % (20-45) Monocytes % (Manual) 7 % (1-10) Eosinophils % (Manual) 1 % (0-3) Basophils % (Manual) 0 % (0-2) Band Neutrophils 0 % (0-8) Platelet Estimate Decreased L Platelet Morphology Normal Hypochromasia 2+ Anisocytosis 1+ Spherocytes 1+ Sodium Level 145 MMOL/L (136-145) Potassium Level 3.2 MMOL/L (3.5-5.1) L Chloride Level 110 MMOL/L (98-107) H Carbon Dioxide Level 28 MMOL/L (21-32) Anion Gap 7 mmol/L (5-15) Blood Urea Nitrogen 32 mg/dL (7-18) H Creatinine 3.3 MG/DL (0.55-1.30) H Estimat Glomerular Filtration Rate 15.8 mL/min (>60) Glucose Level 127 MG/DL (74-106) H Calcium Level 8.6 MG/DL (8.5-10.1) Total Bilirubin 2.8 MG/DL (0.2-1.0) H Direct Bilirubin 1.8 MG/DL (0.0-0.3) H Aspartate Amino Transf (AST/SGOT) 59 U/L (15-37) H Alanine Aminotransferase (ALT/SGPT) 24 U/L (12-78) Alkaline Phosphatase 148 U/L (46-116) H Total Protein 6.5 G/DL (6.4-8.2) Albumin 1.8 G/DL (3.4-5.0) L Current Medications Medications (Trade) Dose Ordered Sig/Abner Route PRN Reason Start Time Stop Time Status Last Admin Dose Admin Al Hydroxide/Mg Hydroxide (Mylanta II) 30 ml Q6H PRN ORAL dyspepsia 08/28/18 21:12 09/27/18 21:11 Chlorhexidine Gluconate (Sierra-Hex 2%) 1 applic DAILY@1999 TOPIC 08/29/18 20:00 09/18/18 19:59 08/29/18 20:07 Dextrose (Dextrose 50%) 25 ml Q30M PRN IV Hypoglycemia 08/28/18 21:13 09/23/18 21:12 Dextrose (Dextrose 50%) 50 ml Q30M PRN IV Hypoglycemia 08/28/18 21:12 09/16/18 21:11 Lactulose (Cephulac) 30 gm EVERY 6 HOURS ORAL 08/29/18 00:00 09/16/18 11:59 08/30/18 11:10 Lorazepam (Ativan 2mg/ml 1ml) 1 mg Q4H PRN IV For Anxiety or sz 08/28/18 21:16 09/04/18 21:15 Morphine Sulfate (Morphine Sulfate) 2 mg Q4H PRN IVP For Pain 08/30/18 06:15 09/06/18 06:14 08/30/18 11:08 Octreotide Acetate 500 mcg/ Sodium Chloride 500 ml @ 50 mls/hr Q10H IV 08/28/18 23:00 09/25/18 22:59 08/30/18 05:38 Ondansetron HCl (Zofran) 4 mg Q6H PRN IVP Nausea & Vomiting 08/28/18 21:16 09/27/18 21:15 Pantoprazole (Protonix) 40 mg DAILY IVP 08/29/18 09:00 09/24/18 05:59 08/30/18 08:44 Potassium Chloride 100 ml @ 100 mls/hr Q1H IVPB 08/30/18 10:30 08/30/18 13:29 08/30/18 12:10 Rifaximin (Xifaxan) 550 mg EVERY 12 HOURS ORAL 08/29/18 09:00 09/05/18 08:59 08/30/18 08:44 Stacy Perdomo M.D. Aug 30, 2018 12:39
--- NOTE | 2018-08-30 13:06 | General Progress Note ---
Assessment/Plan Problem List: (1) Edema ICD Codes: R60.9 - Edema, unspecified SNOMED: 576477849, 885984461 (2) Anemia ICD Codes: D64.9 - Anemia, unspecified SNOMED: 356849804 (3) Alcoholic cirrhosis ICD Codes: K70.30 - Alcoholic cirrhosis of liver without ascites SNOMED: 067288356 (4) Esophageal varices ICD Codes: I85.00 - Esophageal varices without bleeding SNOMED: 20379073 (5) Leukocytosis ICD Codes: D72.829 - Elevated white blood cell count, unspecified SNOMED: 123241748, 595779923 (6) GI bleed ICD Codes: K92.2 - Gastrointestinal hemorrhage, unspecified SNOMED: 27557326 (7) LENI (acute kidney injury) ICD Codes: N17.9 - Acute kidney failure, unspecified SNOMED: 29225360 (8) Sepsis ICD Codes: A41.9 - Sepsis, unspecified organism SNOMED: 59159042 (9) Seizure ICD Codes: R56.9 - Unspecified convulsions SNOMED: 54740208 Status: unchanged Assessment/Plan abx oe pulm tx transfuse prn gi heme f/u dialysis prn seizure control cbc bmp am promise ltach if clear Subjective Constitutional: Reports: weakness Allergies: Coded Allergies: LORAZEPAM (Verified Allergy, Unknown, 05/21/18) PENICILLINS (Verified Allergy, Unknown, 05/21/18) All Systems: reviewed and negative except above Subjective 02nc tired Objective Last 24 Hour Vital Signs Date Time Temp Pulse Resp B/P (MAP) Pulse Ox O2 Delivery O2 Flow Rate FiO2 08/30/18 12:00 98.2 97 18 117/50 (72) 95 98.2 08/30/18 08:00 98.2 95 18 114/58 (76) 97 98.2 08/30/18 07:52 Nasal Cannula 2.0 08/30/18 07:25 96 Nasal Cannula 2.0 28 08/30/18 07:25 Nasal Cannula 2.0 28 08/30/18 06:33 98.4 08/30/18 04:00 98.4 92 16 107/47 (67) 95 98.4 08/30/18 00:00 98.1 90 18 106/54 (71) 96 98.1 08/29/18 21:00 Nasal Cannula 2.0 08/29/18 20:00 97.9 88 18 110/57 (74) 98 97.9 08/29/18 19:06 98 Nasal Cannula 2.0 28 08/29/18 19:06 Nasal Cannula 2.0 28 08/29/18 15:55 98.2 86 18 123/67 (85) 95 98.2 Intake and Output 08/29/18 08/30/18 18:59 06:59 Intake Total 1330 ml 950 ml Output Total 2000 ml 1900 ml Balance -670 ml -950 ml Free Water 100 ml 210 ml IV Total 600 ml 500 ml Tube Feeding 320 ml 240 ml Blood Product 310 ml Output Urine Total 1000 ml Stool Total 900 ml Hemodialysis UF 2000 ml # Bowel Movements 2 Laboratory Tests 08/30/18 06:00: White Blood Count 9.9, Red Blood Count 2.66L, Hemoglobin 8.4L, Hematocrit 24.9L , Mean Corpuscular Volume 93, Mean Corpuscular Hemoglobin 31.4H, Mean Corpuscular Hemoglobin Concent 33.6, Red Cell Distribution Width 17.4H, Platelet Count 61L, Mean Platelet Volume 12.4H, Neutrophils (%) (Auto) , Lymphocytes (%) (Auto) , Monocytes (%) (Auto) , Eosinophils (%) (Auto) , Basophils (%) (Auto) , Differential Total Cells Counted 100, Neutrophils % ( Manual) 65, Lymphocytes % (Manual) 27, Monocytes % (Manual) 7, Eosinophils % ( Manual) 1, Basophils % (Manual) 0, Band Neutrophils 0, Platelet Estimate DecreasedL, Platelet Morphology Normal, Hypochromasia 2+, Anisocytosis 1+, Spherocytes 1+, Sodium Level 145, Potassium Level 3.2L, Chloride Level 110H, Carbon Dioxide Level 28, Anion Gap 7, Blood Urea Nitrogen 32H, Creatinine 3.3H, Estimat Glomerular Filtration Rate 15.8, Glucose Level 127H, Calcium Level 8.6, Total Bilirubin 2.8H, Direct Bilirubin 1.8H, Aspartate Amino Transf (AST/SGOT) 59H, Alanine Aminotransferase (ALT/SGPT) 24, Alkaline Phosphatase 148H, Total Protein 6.5, Albumin 1.8L Height (Feet): 5 Height (Inches): 3.00 Weight (Pounds): 310 General Appearance: lethargic EENT: normal ENT inspection Neck: normal alignment Cardiovascular: normal peripheral pulses, normal rate, regular rhythm Respiratory/Chest: chest wall non-tender, decreased breath sounds Abdomen: normal bowel sounds, non tender, soft Extremities: normal inspection Edema: 1+ Arm (L), 1+ Arm (R), 1+ Leg (L), 1+ Leg (R), 1+ Pedal (L), 1+ Pedal ( R), 1+ Generalized Edema: trace edema Neurologic: responsive, motor weakness Skin: normal pigmentation, warm/dry Chauncey Fuentes DO Aug 30, 2018 13:06
--- NOTE | 2018-08-30 13:38 | Pulmonology Progress Note ---
Assessment/Plan Problems: (1) Acute encephalopathy (2) LENI (acute kidney injury) (3) ATN (acute tubular necrosis) (4) Coagulopathy (5) Esophageal varices (6) Alcoholic cirrhosis (7) End stage liver disease Assessment/Plan supportive care more awake, eating on Lactulose check ammonia level on abx check h/h, met with family welfare social work professor and people from homeless program. pt needs care home care. Subjective ROS Limited/Unobtainable: No Constitutional: Reports: no symptoms HEENT: Repors: no symptoms Respiratory: Reports: no symptoms Cardiovascular: Reports: no symptoms Gastrointestinal/Abdominal: Reports: no symptoms Allergies: Coded Allergies: LORAZEPAM (Verified Allergy, Unknown, 05/21/18) PENICILLINS (Verified Allergy, Unknown, 05/21/18) Objective Last 24 Hour Vital Signs Date Time Temp Pulse Resp B/P (MAP) Pulse Ox O2 Delivery O2 Flow Rate FiO2 08/30/18 12:00 98.2 97 18 117/50 (72) 95 98.2 08/30/18 08:00 98.2 95 18 114/58 (76) 97 98.2 08/30/18 07:52 Nasal Cannula 2.0 08/30/18 07:25 96 Nasal Cannula 2.0 28 08/30/18 07:25 Nasal Cannula 2.0 28 08/30/18 06:33 98.4 08/30/18 04:00 98.4 92 16 107/47 (67) 95 98.4 08/30/18 00:00 98.1 90 18 106/54 (71) 96 98.1 08/29/18 21:00 Nasal Cannula 2.0 08/29/18 20:00 97.9 88 18 110/57 (74) 98 97.9 08/29/18 19:06 98 Nasal Cannula 2.0 28 08/29/18 19:06 Nasal Cannula 2.0 28 08/29/18 15:55 98.2 86 18 123/67 (85) 95 98.2 Intake and Output 08/29/18 08/30/18 18:59 06:59 Intake Total 1330 ml 950 ml Output Total 2000 ml 1900 ml Balance -670 ml -950 ml Free Water 100 ml 210 ml IV Total 600 ml 500 ml Tube Feeding 320 ml 240 ml Blood Product 310 ml Output Urine Total 1000 ml Stool Total 900 ml Hemodialysis UF 2000 ml # Bowel Movements 2 General Appearance: WD/WN HEENT: normocephalic, anicteric Respiratory/Chest: chest wall non-tender, normal breath sounds Cardiovascular: normal peripheral pulses, regular rhythm Abdomen: normal bowel sounds, soft, non tender Extremities: no cyanosis Neurologic/Psychiatric: 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 II-XII grossly normal Laboratory Tests 08/30/18 06:00: White Blood Count 9.9, Red Blood Count 2.66L, Hemoglobin 8.4L, Hematocrit 24.9L , Mean Corpuscular Volume 93, Mean Corpuscular Hemoglobin 31.4H, Mean Corpuscular Hemoglobin Concent 33.6, Red Cell Distribution Width 17.4H, Platelet Count 61L, Mean Platelet Volume 12.4H, Neutrophils (%) (Auto) , Lymphocytes (%) (Auto) , Monocytes (%) (Auto) , Eosinophils (%) (Auto) , Basophils (%) (Auto) , Differential Total Cells Counted 100, Neutrophils % ( Manual) 65, Lymphocytes % (Manual) 27, Monocytes % (Manual) 7, Eosinophils % ( Manual) 1, Basophils % (Manual) 0, Band Neutrophils 0, Platelet Estimate DecreasedL, Platelet Morphology Normal, Hypochromasia 2+, Anisocytosis 1+, Spherocytes 1+, Sodium Level 145, Potassium Level 3.2L, Chloride Level 110H, Carbon Dioxide Level 28, Anion Gap 7, Blood Urea Nitrogen 32H, Creatinine 3.3H, Estimat Glomerular Filtration Rate 15.8, Glucose Level 127H, Calcium Level 8.6, Total Bilirubin 2.8H, Direct Bilirubin 1.8H, Aspartate Amino Transf (AST/SGOT) 59H, Alanine Aminotransferase (ALT/SGPT) 24, Alkaline Phosphatase 148H, Total Protein 6.5, Albumin 1.8L 08/30/18 08:30: Prothrombin Time [Pending], Prothromb Time International Ratio [Pending], Activated Partial Thromboplast Time [Pending] Current Medications Medications (Trade) Dose Ordered Sig/Abner Route PRN Reason Start Time Stop Time Status Last Admin Dose Admin Al Hydroxide/Mg Hydroxide (Mylanta II) 30 ml Q6H PRN ORAL dyspepsia 08/28/18 21:12 09/27/18 21:11 Chlorhexidine Gluconate (Sierra-Hex 2%) 1 applic DAILY@1999 TOPIC 08/29/18 20:00 09/18/18 19:59 08/29/18 20:07 Dextrose (Dextrose 50%) 25 ml Q30M PRN IV Hypoglycemia 08/28/18 21:13 09/23/18 21:12 Dextrose (Dextrose 50%) 50 ml Q30M PRN IV Hypoglycemia 08/28/18 21:12 09/16/18 21:11 Lactulose (Cephulac) 30 gm EVERY 6 HOURS ORAL 08/29/18 00:00 09/16/18 11:59 08/30/18 11:10 Lorazepam (Ativan 2mg/ml 1ml) 1 mg Q4H PRN IV For Anxiety or sz 08/28/18 21:16 09/04/18 21:15 Morphine Sulfate (Morphine Sulfate) 2 mg Q4H PRN IVP For Pain 08/30/18 06:15 09/06/18 06:14 08/30/18 11:08 Octreotide Acetate 500 mcg/ Sodium Chloride 500 ml @ 50 mls/hr Q10H IV 08/28/18 23:00 09/25/18 22:59 08/30/18 05:38 Ondansetron HCl (Zofran) 4 mg Q6H PRN IVP Nausea & Vomiting 08/28/18 21:16 09/27/18 21:15 Pantoprazole (Protonix) 40 mg DAILY IVP 08/29/18 09:00 09/24/18 05:59 08/30/18 08:44 Rifaximin (Xifaxan) 550 mg EVERY 12 HOURS ORAL 08/29/18 09:00 09/05/18 08:59 08/30/18 08:44 Jose Roberto Burleson MD Aug 30, 2018 13:38
[2018-08-30 13:46] LABS: INR 1.6 (0.9-1.1)
[2018-08-30] MEDS ORDERED: Heparin Sod 1000 units/ml 10ml ONE (14:49)
[2018-08-30] MEDS ORDERED: Heparin 2000 units/Ns 1000ml 1,000 ML ONE (14:49)
[2018-08-30] MEDS ORDERED: Heparin Sod 1000 units/ml 10ml INJ ONE (15:00)
[2018-08-30] MEDS ORDERED: Heparin 2000 units/Ns 1000ml INJ ONE (15:00)
[2018-08-30] MEDS ORDERED: Lidocaine 2% 20mg/ml/Epi 0.005mg/ml 20ml vial INJ ONE (15:00)
--- NOTE | 2018-08-30 15:46 | Pre-Procedure Note/Attestation ---
Pre-Procedure Note/Attestation Complete Prior to Procedure Planned Procedure: not applicable Procedure Narrative: tunneled dialysis catheter Indications for Procedure Pre-Operative Diagnosis: ESRD Attestation I attest that I discussed the nature of the procedure; its benefits; risks and complications; and alternatives (and the risks and benefits of such alternatives ), prior to the procedure, with the patient (or the patient's legal bilingual sales representative). I attest that, if there was a reasonable possibility of needing a blood transfusion, the patient (or the patient's legal bilingual sales representative) was given the [facility] standardized written summary, pursuant to the [place] Blood Safety Act ([place] Health and Safety Code # 1645, as amended). I attest that I re-evaluated the patient just prior to the surgery and that there has been no change in the patient's H&P, except as documented below: Aris Bae MD Aug 30, 2018 15:46
[2018-08-30] MEDS ORDERED: Clindamycin 600mg 50 ML IV SCH (16:00)
--- NOTE | 2018-08-30 16:04 | Brief Operative Note ---
Immediate Post Operative Note Operative Note Pre-op Diagnosis: ESRD Procedure: R IJV dionicioacatmei Post-op Diagnosis: same as pre-op Findings: consistent w/pre-op dx studies Surgeon: Jocelyn HERNANDEZ Anesthesia: local Specimen: none Complications: none Condition: stable Fluids: NONE Implant(s) used?: Yes - 23 cm BioFlo Aris Singh MD Aug 30, 2018 16:04
[2018-08-30] MEDS ORDERED: Lidocaine 2% 20mg/ml/Epi 0.005mg/ml 20ml vial ONE (16:40)
--- NOTE | 2018-08-30 16:44 | General Progress Note ---
Assessment/Plan Status: stable Assessment/Plan # Thrombocytopenia. Baseline appears to be 50-80k. Is most likely related to underlying liver disease with e/o portal htn. Hx of ETOH use. She does have evidence of hepatic cirrhosis, with surface nodularity an increased echogenicity. Evidence of portal hypertension, with ascites, splenomegaly, and flow reversal within the main and right portal vein. Evidence of prior cholecystectomy. Negative for dilated ducts. Prior CT and Us have been reviewed , hepatitis and hiv are both negative. Current the count is closer to 15-50k. --> Peripheral smear ordered and is negative for blasts, has been reviewed --> Abx and other meds have been reviewed. --> hold off heparin, asa, or plavix --> Transfuse plts if plt count >10k or if 20k and with fever --> Agree with lactulose and potential rifaximin for elev ammonia # Coagulopathy is likely related to underlying liver disease, liver us shows " Evidence of chronic liver disease with enlarged fatty liver and stigmata of portal hypertension including hepatofugal portal venous flow." --> no evidence of bleeding hold off unless bleeding is noted --> VIt K or ffp before procedure # Anemia due to gastrointestinal bleed. Hemoglobin on admission 5-8 range, likely bleed related, ferritin is 1125 --> Gastroenterology to evaluate and manage. --> was in the past on octreotide drip --> now need transfusions hgb goal >7 # Anemia of chronic disease, multifactorial --> Previous w/u has been reviewed. --> Will trend CBC daily --> Hgb goal above 7 --> Blood tx: 08/17,08/18, 08/19, 08/23, 08/25, 08/29, # Acute kidney injury secondary to intravascular volume depletion along with ischemic acute tubular necrosis from hypotension. --> Nephro following. Appreciate recs. # Hyperkalemia secondary to renal insufficiency and gastrointestinal bleed. --> The patient was given Kayexalate 60 g already. 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 Subjective Date patient seen: Aug 30, 2018 Hematologic/Lymphatic: Reports: anemia Allergies: Coded Allergies: LORAZEPAM (Verified Allergy, Unknown, 05/21/18) PENICILLINS (Verified Allergy, Unknown, 05/21/18) All Systems: reviewed and negative except above Subjective Pt transferred to med surg. S/P blood tx, Hgb improved to 8.4. VS stable. DC planning. Objective Last 24 Hour Vital Signs Date Time Temp Pulse Resp B/P (MAP) Pulse Ox O2 Delivery O2 Flow Rate FiO2 08/30/18 16:05 88 20 115/67 (83) 100 08/30/18 16:00 89 20 118/65 (82) 100 08/30/18 15:55 90 20 119/67 (84) 100 08/30/18 15:50 89 20 121/69 (86) 100 08/30/18 15:11 91 18 4.0 08/30/18 12:00 98.2 97 18 117/50 (72) 95 98.2 08/30/18 08:00 98.2 95 18 114/58 (76) 97 98.2 08/30/18 07:52 Nasal Cannula 2.0 08/30/18 07:25 96 Nasal Cannula 2.0 28 08/30/18 07:25 Nasal Cannula 2.0 28 08/30/18 06:33 98.4 08/30/18 04:00 98.4 92 16 107/47 (67) 95 98.4 08/30/18 00:00 98.1 90 18 106/54 (71) 96 98.1 08/29/18 21:00 Nasal Cannula 2.0 08/29/18 20:00 97.9 88 18 110/57 (74) 98 97.9 08/29/18 19:06 98 Nasal Cannula 2.0 28 08/29/18 19:06 Nasal Cannula 2.0 28 Intake and Output 08/29/18 08/30/18 18:59 06:59 Intake Total 1330 ml 950 ml Output Total 2000 ml 1900 ml Balance -670 ml -950 ml Free Water 100 ml 210 ml IV Total 600 ml 500 ml Tube Feeding 320 ml 240 ml Blood Product 310 ml Output Urine Total 1000 ml Stool Total 900 ml Hemodialysis UF 2000 ml # Bowel Movements 2 Laboratory Tests 08/30/18 06:00: White Blood Count 9.9, Red Blood Count 2.66L, Hemoglobin 8.4L, Hematocrit 24.9L , Mean Corpuscular Volume 93, Mean Corpuscular Hemoglobin 31.4H, Mean Corpuscular Hemoglobin Concent 33.6, Red Cell Distribution Width 17.4H, Platelet Count 61L, Mean Platelet Volume 12.4H, Neutrophils (%) (Auto) , Lymphocytes (%) (Auto) , Monocytes (%) (Auto) , Eosinophils (%) (Auto) , Basophils (%) (Auto) , Differential Total Cells Counted 100, Neutrophils % ( Manual) 65, Lymphocytes % (Manual) 27, Monocytes % (Manual) 7, Eosinophils % ( Manual) 1, Basophils % (Manual) 0, Band Neutrophils 0, Platelet Estimate DecreasedL, Platelet Morphology Normal, Hypochromasia 2+, Anisocytosis 1+, Spherocytes 1+, Sodium Level 145, Potassium Level 3.2L, Chloride Level 110H, Carbon Dioxide Level 28, Anion Gap 7, Blood Urea Nitrogen 32H, Creatinine 3.3H, Estimat Glomerular Filtration Rate 15.8, Glucose Level 127H, Calcium Level 8.6, Total Bilirubin 2.8H, Direct Bilirubin 1.8H, Aspartate Amino Transf (AST/SGOT) 59H, Alanine Aminotransferase (ALT/SGPT) 24, Alkaline Phosphatase 148H, Total Protein 6.5, Albumin 1.8L 08/30/18 08:30: Prothrombin Time 16.4H, Prothromb Time International Ratio 1.6H, Activated Partial Thromboplast Time 35H Height (Feet): 5 Height (Inches): 3.00 Weight (Pounds): 310 General Appearance: no apparent distress EENT: PERRL/EOMI Neck: normal alignment Cardiovascular: normal peripheral pulses Respiratory/Chest: no respiratory distress Abdomen: soft Michael Hernandez MD Aug 30, 2018 16:44
--- NOTE | 2018-08-30 17:02 | Diagnostic Imaging Report ---
Indications: Needs long-term dialysis access Technique: Patient given IV clindamycin. Total sterile technique, including sterile probe cover and sterile gel, sterile gloves, hand hygiene, hat, mask,, sterile gown, large sterile drape, and preparation with 2% chlorhexidine utilized. Local anesthesia with 1% lidocaine. Under real-time ultrasound guidance, puncture right internal jugular vein using 21-gauge micropuncture needle, passage 0.018 guidewire, exchange for 4 Pashto micropuncture introducer. The guidewire was used to measure the appropriate catheter length, and was removed. The sheath was left in place. The subcutaneous tract was then anesthetized with 1% lidocaine. A chest dermatotomy was made . The tunneling device was used to pull a 14.5 Pashto 23 cm BioFlo catheter through the subcutaneous tunnel to the neck dermatotomy. A guidewire was passed through the neck introducer into the inferior vena cava, and serial dilators were passed over it, followed by the introduction of a 14.5 Pashto AirGuard peel-away sheath. The catheter was then introduced into the sheath, the peel-away sheath was removed. Digital radiograph documents satisfactory catheter tip position in the high right atrium, no kinking at the insertion site. Both catheter ports aspirated and flushed. Catheter was fixed to the skin. Patient tolerated procedure well without immediate complication. Total fluoroscopy time one minutes. Total dose area product 94 dGycm2 Total number of images-one Comparison: None. Findings: Completion radiograph documents satisfactory position and course of the catheter, catheter tip at the cavoatrial junction. Impression: Successful placement of right transjugular tunneled dialysis catheter, as described above
[2018-08-30] MEDS: Dyna-Hex 2% Top Sol 2oz TOPIC SCH (20:42)
[2018-08-30 23:56] LABS: HEMATOCRIT 26.7 % (37.0-47.0); HEMOGLOBIN 8.8 G/DL (12.0-16.0); MEAN CORPUSCULAR VOLUME 95 FL (80-99); PLATELET COUNT 64 K/UL (150-450); RED BLOOD COUNT 2.82 M/UL (4.20-5.40); RED CELL DISTRIBUTION WIDTH 18.2 % (11.6-14.8); WHITE BLOOD COUNT 9.9 K/UL (4.8-10.8)
[2018-08-31] VITALS (7 sets, daily range): BP systolic 109–161; BP diastolic 62–88
[2018-08-31 00:08] LABS: INR 1.5 (0.9-1.1)
[2018-08-31] MEDS: Octreotide Acetate 500 MCG in Sodium Chloride 500ML 499 ML IV SCH ×3 (01:50→20:48)
[2018-08-31] MEDS ORDERED: Phytonadione 10 MG in D5W 55 ML IVPB SCH ×2 (03:00→12:30)
[2018-08-31 05:53] LABS: HEMATOCRIT 27.3 % (37.0-47.0); HEMOGLOBIN 8.8 G/DL (12.0-16.0); MEAN CORPUSCULAR VOLUME 94 FL (80-99); PLATELET COUNT 69 K/UL (150-450); RED CELL DISTRIBUTION WIDTH 17.8 % (11.6-14.8); WHITE BLOOD COUNT 9.8 K/UL (4.8-10.8)
[2018-08-31] MEDS: Lactulose 20gm/30ml UDC ORAL SCH ×5 (06:00→23:41)
[2018-08-31 06:01] LABS: ANION GAP 6 mmol/L (5-15); BLOOD UREA NITROGEN 36 mg/dL (7-18); CALCIUM 8.5 MG/DL (8.5-10.1); CARBON DIOXIDE 27 MMOL/L (21-32); CHLORIDE 110 MMOL/L (98-107); CREATININE 3.4 MG/DL (0.55-1.30); POTASSIUM 3.4 MMOL/L (3.5-5.1); SODIUM 143 MMOL/L (136-145)
--- NOTE | 2018-08-31 07:52 | General Progress Note ---
Assessment/Plan Problem List: (1) Edema ICD Codes: R60.9 - Edema, unspecified SNOMED: 916378425, 834216473 (2) Anemia ICD Codes: D64.9 - Anemia, unspecified SNOMED: 901589543 (3) Alcoholic cirrhosis ICD Codes: K70.30 - Alcoholic cirrhosis of liver without ascites SNOMED: 413304529 (4) Esophageal varices ICD Codes: I85.00 - Esophageal varices without bleeding SNOMED: 36570870 (5) Leukocytosis ICD Codes: D72.829 - Elevated white blood cell count, unspecified SNOMED: 760879954, 743157455 (6) GI bleed ICD Codes: K92.2 - Gastrointestinal hemorrhage, unspecified SNOMED: 08265143 (7) LENI (acute kidney injury) ICD Codes: N17.9 - Acute kidney failure, unspecified SNOMED: 52960193 (8) Sepsis ICD Codes: A41.9 - Sepsis, unspecified organism SNOMED: 37589652 (9) Seizure ICD Codes: R56.9 - Unspecified convulsions SNOMED: 38126560 Status: stable, progressing Assessment/Plan abx oe pulm tx transfuse prn gi heme f/u dialysis prn seizure control cbc bmp am promise ltach if clear padmini prn sx eval called Subjective Constitutional: Reports: weakness Allergies: Coded Allergies: LORAZEPAM (Verified Allergy, Unknown, 05/21/18) PENICILLINS (Verified Allergy, Unknown, 05/21/18) All Systems: reviewed and negative except above Subjective 02nc tired sl bleeding permacath Objective Last 24 Hour Vital Signs Date Time Temp Pulse Resp B/P (MAP) Pulse Ox O2 Delivery O2 Flow Rate FiO2 08/31/18 04:00 97.9 87 20 135/67 (89) 98 97.9 08/31/18 00:00 98.4 93 20 143/72 (95) 100 98.4 08/30/18 21:00 Nasal Cannula 4.0 08/30/18 20:50 Nasal Cannula 2.0 28 08/30/18 20:50 97 Nasal Cannula 2.0 28 08/30/18 20:00 98.6 93 20 114/65 (81) 97 98.6 08/30/18 16:41 98.2 88 20 113/69 (84) 100 98.2 08/30/18 16:05 88 20 115/67 (83) 100 08/30/18 16:00 89 20 118/65 (82) 100 08/30/18 15:55 90 20 119/67 (84) 100 08/30/18 15:50 89 20 121/69 (86) 100 08/30/18 15:11 91 18 4.0 08/30/18 12:00 98.2 97 18 117/50 (72) 95 98.2 08/30/18 08:00 98.2 95 18 114/58 (76) 97 98.2 08/30/18 07:52 Nasal Cannula 2.0 Intake and Output 08/30/18 08/31/18 19:00 07:00 Intake Total 955 ml 550 ml Output Total 200 ml 120 ml Balance 755 ml 430 ml Intake Oral 120 ml Free Water 50 ml IV Total 625 ml 550 ml Tube Feeding 160 ml Output Urine Total 200 ml 120 ml Laboratory Tests 08/30/18 08:30: Prothrombin Time 16.4H, Prothromb Time International Ratio 1.6H, Activated Partial Thromboplast Time 35H 08/30/18 23:44: Prothrombin Time 15.6H, Prothromb Time International Ratio 1.5H, Activated Partial Thromboplast Time 35H, White Blood Count 9.9, Red Blood Count 2.82L, Hemoglobin 8.8L, Hematocrit 26.7L, Mean Corpuscular Volume 95, Mean Corpuscular Hemoglobin 31.1H, Mean Corpuscular Hemoglobin Concent 32.8, Red Cell Distribution Width 18.2H, Platelet Count 64L, Mean Platelet Volume 9.7, Neutrophils (%) (Auto) , Lymphocytes (%) (Auto) , Monocytes (%) (Auto) , Eosinophils (%) (Auto) , Basophils (%) (Auto) , Fibrinogen 258 08/31/18 05:40: White Blood Count 9.8, Red Blood Count 2.90L, Hemoglobin 8.8L, Hematocrit 27.3L , Mean Corpuscular Volume 94, Mean Corpuscular Hemoglobin 30.1, Mean Corpuscular Hemoglobin Concent 32.1, Red Cell Distribution Width 17.8H, Platelet Count 69L, Mean Platelet Volume 9.7, Neutrophils (%) (Auto) , Lymphocytes (%) (Auto) , Monocytes (%) (Auto) , Eosinophils (%) (Auto) , Basophils (%) (Auto) , Neutrophils % (Manual) [Pending], Lymphocytes % (Manual) [Pending], Platelet Estimate [Pending], Platelet Morphology [Pending], Sodium Level 143, Potassium Level 3.4L, Chloride Level 110H, Carbon Dioxide Level 27, Anion Gap 6, Blood Urea Nitrogen 36H, Creatinine 3.4H, Estimat Glomerular Filtration Rate 15.3, Glucose Level 124H, Calcium Level 8.5 Height (Feet): 5 Height (Inches): 3.00 Weight (Pounds): 320 General Appearance: alert EENT: normal ENT inspection Neck: non-tender, normal alignment, supple Cardiovascular: normal peripheral pulses, normal rate, regular rhythm Respiratory/Chest: chest wall non-tender, lungs clear, normal breath sounds Abdomen: normal bowel sounds, non tender, soft Extremities: normal inspection Edema: 1+ Arm (L), 1+ Arm (R), 1+ Leg (L), 1+ Leg (R), 1+ Pedal (L), 1+ Pedal ( R), 1+ Generalized Edema: trace edema Neurologic: responsive Skin: normal pigmentation, warm/dry Chauncey Fuentes DO Aug 31, 2018 07:52
--- NOTE | 2018-08-31 09:04 | Nephrology Progress Note ---
Assessment/Plan Assessment/Plan 1. ESRD- multifact ATN ( hypotension/intravasc vol dep/?hepatorenal/Anemia) - ATN nonresolving, hold HD today and monitor renal function - if renal function improving will hold HD 2. Hypok+- replace KCL today 3. 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 Bleeding Permacath- DDAVP, pressure bag, Gen Surg to evaluate. Hold HD today 5. GI Bleed/Anemia- per GI mgmt, Octreotide - prn blood tx Subjective Date patient seen: Aug 31, 2018 Time patient seen: 09:00 ROS Limited/Unobtainable: No Allergies: Coded Allergies: LORAZEPAM (Verified Allergy, Unknown, 05/21/18) PENICILLINS (Verified Allergy, Unknown, 05/21/18) Subjective Patient more awake and alert, transfer to [facility] due to permacath bleeding Objective Last 24 Hour Vital Signs Date Time Temp Pulse Resp B/P (MAP) Pulse Ox O2 Delivery O2 Flow Rate FiO2 08/31/18 08:00 98.4 89 19 131/70 (90) 96 98.4 08/31/18 04:00 97.9 87 20 135/67 (89) 98 97.9 08/31/18 00:00 98.4 93 20 143/72 (95) 100 98.4 08/30/18 21:00 Nasal Cannula 4.0 08/30/18 20:50 Nasal Cannula 2.0 28 08/30/18 20:50 97 Nasal Cannula 2.0 28 08/30/18 20:00 98.6 93 20 114/65 (81) 97 98.6 08/30/18 16:41 98.2 88 20 113/69 (84) 100 98.2 08/30/18 16:05 88 20 115/67 (83) 100 08/30/18 16:00 89 20 118/65 (82) 100 08/30/18 15:55 90 20 119/67 (84) 100 08/30/18 15:50 89 20 121/69 (86) 100 08/30/18 15:11 91 18 4.0 08/30/18 12:00 98.2 97 18 117/50 (72) 95 98.2 Intake and Output 08/30/18 08/31/18 19:00 07:00 Intake Total 955 ml 550 ml Output Total 200 ml 120 ml Balance 755 ml 430 ml Intake Oral 120 ml Free Water 50 ml IV Total 625 ml 550 ml Tube Feeding 160 ml Output Urine Total 200 ml 120 ml Laboratory Tests 08/30/18 23:44: White Blood Count 9.9, Red Blood Count 2.82L, Hemoglobin 8.8L, Hematocrit 26.7L , Mean Corpuscular Volume 95, Mean Corpuscular Hemoglobin 31.1H, Mean Corpuscular Hemoglobin Concent 32.8, Red Cell Distribution Width 18.2H, Platelet Count 64L, Mean Platelet Volume 9.7, Neutrophils (%) (Auto) , Lymphocytes (%) (Auto) , Monocytes (%) (Auto) , Eosinophils (%) (Auto) , Basophils (%) (Auto) , Prothrombin Time 15.6H, Prothromb Time International Ratio 1.5H, Activated Partial Thromboplast Time 35H, Fibrinogen 258 08/31/18 05:40: White Blood Count 9.8, Red Blood Count 2.90L, Hemoglobin 8.8L, Hematocrit 27.3L , Mean Corpuscular Volume 94, Mean Corpuscular Hemoglobin 30.1, Mean Corpuscular Hemoglobin Concent 32.1, Red Cell Distribution Width 17.8H, Platelet Count 69L, Mean Platelet Volume 9.7, Neutrophils (%) (Auto) , Lymphocytes (%) (Auto) , Monocytes (%) (Auto) , Eosinophils (%) (Auto) , Basophils (%) (Auto) , Neutrophils % (Manual) [Pending], Lymphocytes % (Manual) [Pending], Platelet Estimate [Pending], Platelet Morphology [Pending], Sodium Level 143, Potassium Level 3.4L, Chloride Level 110H, Carbon Dioxide Level 27, Anion Gap 6, Blood Urea Nitrogen 36H, Creatinine 3.4H, Estimat Glomerular Filtration Rate 15.3, Glucose Level 124H, Calcium Level 8.5 Height (Feet): 5 Height (Inches): 3.00 Weight (Pounds): 320 General Appearance: no apparent distress, alert EENT: normal ENT inspection Neck: normal alignment, supple Cardiovascular: normal rate, regular rhythm Respiratory/Chest: lungs clear, normal breath sounds Abdomen: distended, guarding Edema: 2+ Arm (L), 2+ Arm (R), 2+ Leg (L), 2+ Leg (R), 2+ Pedal (L), 2+ Pedal ( R), 2+ Generalized Amos Pinon MD Aug 31, 2018 09:04
[2018-08-31] MEDS: Pantoprazole Inj IVP SCH (09:05)
[2018-08-31] MEDS ORDERED: LORazepam Inj 2mg/ml 1ml IV PRN (11:00)
[2018-08-31] MEDS ORDERED: Mylanta II UD 30ml ORAL PRN (11:00)
--- NOTE | 2018-08-31 11:50 | Infectious Diseases Prog Note ---
Assessment/Plan Assessment/Plan The patient is a 38-year-old female with: 1. Probable sepsis, SP -Bcx neg 2. Leukocytosis; SP -CXR: Pulmonary vascular congestion with increased interstitial markings , likely representing interstitial edema. This appears improved relative to the chest x-ray from 07/22/18 3. Urinary tract infection, s/p Rx u/a wbc 60-80, nit+, leuk large; ucx ESBL K. pna ( R zosyn, S ertapenem), Citrobacter freundi (R ancef, I Impienem, S ertapenem) 4. History of hepatitis panel and HIV serology negative. 5. GIB -s/p EGD 08/19: esophageal varices 6. Afebrile. 7.Seizures episodes 08/24 (?related to carbapenem) 8. Acute renal insufficiency.; on HD -Renal US: unremarkable 9. Thrombocytopenia s/p permacath placement 08/30,now w/ bleeding from site Encephalopathy, multifactorial, ongoin -. Alcoholic cirrhosis. -. Esophageal varices. PLAN: -Continue to monitor off abx -08/25 SP Ertapenem #7 -08/19 SP cefepime and Flagyl #3 -. Monitor BMP. -. Monitor cultures (blood).. -.Renal, GI f/u -seizure precautions -aspiration precautions Thank you, Dr. Chauncey Fuentes, for allowing me to see this patient. I will follow the patient with you during this hospitalization. Subjective Allergies: Coded Allergies: LORAZEPAM (Verified Allergy, Unknown, 05/21/18) PENICILLINS (Verified Allergy, Unknown, 05/21/18) Subjective afebrile no leukocytosis remains off abx transferred to [facility] bc of permacath bleeding which was placed yesterday Objective Vital Signs Last 24 Hour Vital Signs Date Time Temp Pulse Resp B/P (MAP) Pulse Ox O2 Delivery O2 Flow Rate FiO2 08/31/18 11:00 97.9 79 20 117/67 (84) 100 97.9 08/31/18 10:16 81 08/31/18 09:35 98.2 85 22 161/88 (112) 100 98.2 08/31/18 09:00 Nasal Cannula 3.0 08/31/18 08:00 98.4 89 19 131/70 (90) 96 98.4 08/31/18 04:00 97.9 87 20 135/67 (89) 98 97.9 08/31/18 00:00 98.4 93 20 143/72 (95) 100 98.4 08/30/18 21:00 Nasal Cannula 4.0 08/30/18 20:50 Nasal Cannula 2.0 28 08/30/18 20:50 97 Nasal Cannula 2.0 28 08/30/18 20:00 98.6 93 20 114/65 (81) 97 98.6 08/30/18 16:41 98.2 88 20 113/69 (84) 100 98.2 08/30/18 16:05 88 20 115/67 (83) 100 08/30/18 16:00 89 20 118/65 (82) 100 08/30/18 15:55 90 20 119/67 (84) 100 08/30/18 15:50 89 20 121/69 (86) 100 08/30/18 15:11 91 18 4.0 08/30/18 12:00 98.2 97 18 117/50 (72) 95 98.2 Height (Feet): 5 Height (Inches): 3.00 Weight (Pounds): 320 Objective HEENT: No pale conjunctivae. CHEST: Clear. HEART: S1 and S2. ABDOMEN: Obese and nontender. EXTREMITIES: No cyanosis at this time. There is no edema. NEUROLOGIC: Awake, but lethargic. Laboratory Tests Test 08/30/18 23:44 08/31/18 05:40 White Blood Count 9.9 K/UL (4.8-10.8) 9.8 K/UL (4.8-10.8) Red Blood Count 2.82 M/UL (4.20-5.40) L 2.90 M/UL (4.20-5.40) L Hemoglobin 8.8 G/DL (12.0-16.0) L 8.8 G/DL (12.0-16.0) L Hematocrit 26.7 % (37.0-47.0) L 27.3 % (37.0-47.0) L Mean Corpuscular Volume 95 FL (80-99) 94 FL (80-99) Mean Corpuscular Hemoglobin 31.1 PG (27.0-31.0) H 30.1 PG (27.0-31.0) Mean Corpuscular Hemoglobin Concent 32.8 G/DL (32.0-36.0) 32.1 G/DL (32.0-36.0) Red Cell Distribution Width 18.2 % (11.6-14.8) H 17.8 % (11.6-14.8) H Platelet Count 64 K/UL (150-450) L 69 K/UL (150-450) L Mean Platelet Volume 9.7 FL (6.5-10.1) 9.7 FL (6.5-10.1) Neutrophils (%) (Auto) % (45.0-75.0) % (45.0-75.0) Lymphocytes (%) (Auto) % (20.0-45.0) % (20.0-45.0) Monocytes (%) (Auto) % (1.0-10.0) % (1.0-10.0) Eosinophils (%) (Auto) % (0.0-3.0) % (0.0-3.0) Basophils (%) (Auto) % (0.0-2.0) % (0.0-2.0) Prothrombin Time 15.6 SEC (9.30-11.50) H Prothromb Time International Ratio 1.5 (0.9-1.1) H Activated Partial Thromboplast Time 35 SEC (23-33) H Fibrinogen 258 mg/dL (200-400) Differential Total Cells Counted 100 Neutrophils % (Manual) 69 % (45-75) Lymphocytes % (Manual) 16 % (20-45) L Monocytes % (Manual) 15 % (1-10) H Eosinophils % (Manual) 0 % (0-3) Basophils % (Manual) 0 % (0-2) Band Neutrophils 0 % (0-8) Platelet Estimate Decreased L Platelet Morphology Normal Anisocytosis 1+ Sodium Level 143 MMOL/L (136-145) Potassium Level 3.4 MMOL/L (3.5-5.1) L Chloride Level 110 MMOL/L (98-107) H Carbon Dioxide Level 27 MMOL/L (21-32) Anion Gap 6 mmol/L (5-15) Blood Urea Nitrogen 36 mg/dL (7-18) H Creatinine 3.4 MG/DL (0.55-1.30) H Estimat Glomerular Filtration Rate 15.3 mL/min (>60) Glucose Level 124 MG/DL (74-106) H Calcium Level 8.5 MG/DL (8.5-10.1) Current Medications Medications (Trade) Dose Ordered Sig/Abner Route PRN Reason Start Time Stop Time Status Last Admin Dose Admin Al Hydroxide/Mg Hydroxide (Mylanta II) 30 ml Q6H PRN ORAL dyspepsia 08/31/18 11:00 09/27/18 10:59 Chlorhexidine Gluconate (Sierra-Hex 2%) 1 applic DAILY@2000 TOPIC 08/31/18 20:00 09/18/18 19:59 Dextrose (Dextrose 50%) 25 ml Q30M PRN IV Hypoglycemia 08/31/18 11:00 09/23/18 10:59 Dextrose (Dextrose 50%) 50 ml Q30M PRN IV Hypoglycemia 08/31/18 11:00 09/16/18 10:59 Lactulose (Cephulac) 30 gm EVERY 6 HOURS ORAL 08/31/18 12:00 09/16/18 11:59 Lorazepam (Ativan 2mg/ml 1ml) 1 mg Q4H PRN IV For Anxiety or sz 08/31/18 11:00 09/04/18 10:59 Morphine Sulfate (Morphine Sulfate) 2 mg Q4H PRN IVP For Pain 08/31/18 11:00 09/06/18 10:59 Octreotide Acetate 500 mcg/ Sodium Chloride 500 ml @ 50 mls/hr Q10H IV 08/31/18 11:00 09/25/18 10:59 Ondansetron HCl (Zofran) 4 mg Q6H PRN IVP Nausea & Vomiting 08/31/18 11:00 09/27/18 10:59 Pantoprazole (Protonix) 40 mg DAILY IVP 09/01/18 09:00 09/24/18 05:59 Phytonadione 10 mg/Dextrose 56 ml @ 112 mls/hr ONCE ONCE IVPB 08/31/18 11:30 08/31/18 11:59 UNV Potassium Chloride 100 ml @ 100 mls/hr NOW IVPB 08/31/18 11:15 08/31/18 12:15 08/31/18 11:38 Rifaximin (Xifaxan) 550 mg EVERY 12 HOURS ORAL 08/31/18 21:00 09/05/18 08:59 Stacy Perdomo M.D. Aug 31, 2018 11:50
--- NOTE | 2018-08-31 12:38 | General Progress Note ---
Progress Note Progress Note Surgery: called to bedside to evaluate bleeding from right tunneled HD cath placed by radiology recently. began bleeding at 2am this morning. since oozing blood from site not improved by pressure dressings. all dressings removed and skin bleeding noted from incision site at right chest wall. no hematoma or proximal bleeding noted. consent obtained from patient and hemostasis acheived after infiltration of 5cc of 1%lidocaine with epi and 2-0 silk skin suture. hemostasis noted. dressing applied. thank you George Sorto Aug 31, 2018 12:38
[2018-08-31 14:00] LABS: INR 1.5 (0.9-1.1)
--- NOTE | 2018-08-31 17:46 | General Progress Note ---
Assessment/Plan Status: unchanged Assessment/Plan # Thrombocytopenia. Baseline appears to be 50-80k. Is most likely related to underlying liver disease with e/o portal htn. Hx of ETOH use. She does have evidence of hepatic cirrhosis, with surface nodularity an increased echogenicity. Evidence of portal hypertension, with ascites, splenomegaly, and flow reversal within the main and right portal vein. Evidence of prior cholecystectomy. Negative for dilated ducts. Prior CT and Us have been reviewed , hepatitis and hiv are both negative. Current the count is closer to 15-50k. --> Peripheral smear ordered and is negative for blasts, has been reviewed --> Abx and other meds have been reviewed. --> hold off heparin, asa, or plavix --> Transfuse plts if plt count >10k or if 20k and with fever --> Agree with lactulose and potential rifaximin for elev ammonia --> PLT Tx: 08/31, # Coagulopathy is likely related to underlying liver disease, liver us shows " Evidence of chronic liver disease with enlarged fatty liver and stigmata of portal hypertension including hepatofugal portal venous flow." --> no evidence of bleeding hold off unless bleeding is noted --> VIt K or ffp before a procedure # Anemia due to gastrointestinal bleed. Hemoglobin on admission 5-8 range, likely bleed related, ferritin is 1125 --> Gastroenterology to evaluate and manage. --> was in the past on octreotide drip --> Hgb goal >7. Transfuse prn. # Anemia of chronic disease, multifactorial --> Previous w/u has been reviewed. --> Will trend CBC daily --> Hgb goal above 7 --> Blood tx: 08/17,08/18, 08/19, 08/23, 08/25, 08/29, 08/31, # Acute kidney injury secondary to intravascular volume depletion along with ischemic acute tubular necrosis from hypotension. --> Nephro following. Appreciate recs. # Hyperkalemia secondary to renal insufficiency and gastrointestinal bleed. --> The patient was given Kayexalate 60 g already. 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 Greatly appreciate consultation! Subjective Date patient seen: Aug 31, 2018 Hematologic/Lymphatic: Reports: anemia Allergies: Coded Allergies: LORAZEPAM (Verified Allergy, Unknown, 05/21/18) PENICILLINS (Verified Allergy, Unknown, 05/21/18) All Systems: reviewed and negative except above Subjective S/P prbc and plt tx. VS stable. Objective Last 24 Hour Vital Signs Date Time Temp Pulse Resp B/P (MAP) Pulse Ox O2 Delivery O2 Flow Rate FiO2 08/31/18 16:00 97.9 84 20 109/62 (78) 100 97.9 08/31/18 11:00 97.9 79 20 117/67 (84) 100 97.9 08/31/18 10:16 81 08/31/18 09:35 98.2 85 22 161/88 (112) 100 98.2 08/31/18 09:00 Nasal Cannula 3.0 08/31/18 08:32 96 Nasal Cannula 2.0 28 08/31/18 08:31 Nasal Cannula 2.0 28 08/31/18 08:00 98.4 89 19 131/70 (90) 96 98.4 08/31/18 04:00 97.9 87 20 135/67 (89) 98 97.9 08/31/18 00:00 98.4 93 20 143/72 (95) 100 98.4 08/30/18 21:00 Nasal Cannula 4.0 08/30/18 20:50 Nasal Cannula 2.0 28 08/30/18 20:50 97 Nasal Cannula 2.0 28 08/30/18 20:00 98.6 93 20 114/65 (81) 97 98.6 Intake and Output 08/30/18 08/31/18 18:59 06:59 Intake Total 945 ml 600 ml Output Total 200 ml 120 ml Balance 745 ml 480 ml Intake Oral 120 ml Free Water 50 ml IV Total 575 ml 600 ml Tube Feeding 200 ml Output Urine Total 200 ml 120 ml Laboratory Tests 08/30/18 23:44: White Blood Count 9.9, Red Blood Count 2.82L, Hemoglobin 8.8L, Hematocrit 26.7L , Mean Corpuscular Volume 95, Mean Corpuscular Hemoglobin 31.1H, Mean Corpuscular Hemoglobin Concent 32.8, Red Cell Distribution Width 18.2H, Platelet Count 64L, Mean Platelet Volume 9.7, Neutrophils (%) (Auto) , Lymphocytes (%) (Auto) , Monocytes (%) (Auto) , Eosinophils (%) (Auto) , Basophils (%) (Auto) , Prothrombin Time 15.6H, Prothromb Time International Ratio 1.5H, Activated Partial Thromboplast Time 35H, Fibrinogen 258 08/31/18 05:40: White Blood Count 9.8, Red Blood Count 2.90L, Hemoglobin 8.8L, Hematocrit 27.3L , Mean Corpuscular Volume 94, Mean Corpuscular Hemoglobin 30.1, Mean Corpuscular Hemoglobin Concent 32.1, Red Cell Distribution Width 17.8H, Platelet Count 69L, Mean Platelet Volume 9.7, Neutrophils (%) (Auto) , Lymphocytes (%) (Auto) , Monocytes (%) (Auto) , Eosinophils (%) (Auto) , Basophils (%) (Auto) , Differential Total Cells Counted 100, Neutrophils % ( Manual) 69, Lymphocytes % (Manual) 16L, Monocytes % (Manual) 15H, Eosinophils % (Manual) 0, Basophils % (Manual) 0, Band Neutrophils 0, Platelet Estimate DecreasedL, Platelet Morphology Normal, Anisocytosis 1+, Sodium Level 143, Potassium Level 3.4L, Chloride Level 110H, Carbon Dioxide Level 27, Anion Gap 6 , Blood Urea Nitrogen 36H, Creatinine 3.4H, Estimat Glomerular Filtration Rate 15.3, Glucose Level 124H, Calcium Level 8.5 08/31/18 11:02: Prothrombin Time 15.2H, Prothromb Time International Ratio 1.5H, Activated Partial Thromboplast Time 33 Height (Feet): 5 Height (Inches): 3.00 Weight (Pounds): 320 General Appearance: no apparent distress EENT: PERRL/EOMI Neck: normal alignment Cardiovascular: normal peripheral pulses Respiratory/Chest: no respiratory distress Abdomen: soft Michael Hernandez MD Aug 31, 2018 17:46
[2018-08-31] MEDS: Dyna-Hex 2% Top Sol 2oz TOPIC SCH (20:00)
[2018-08-31] MEDS: Morphine Sulfate 2mg/ml Inj IVP PRN (20:49)
[2018-09-01] VITALS (8 sets, daily range): BP systolic 104–131; BP diastolic 58–72
[2018-09-01 04:15] LABS: HEMATOCRIT 23.3 % (37.0-47.0); HEMOGLOBIN 7.6 G/DL (12.0-16.0); MEAN CORPUSCULAR VOLUME 95 FL (80-99); PLATELET COUNT 75 K/UL (150-450); RED BLOOD COUNT 2.46 M/UL (4.20-5.40); RED CELL DISTRIBUTION WIDTH 18.1 % (11.6-14.8); WHITE BLOOD COUNT 10.2 K/UL (4.8-10.8)
[2018-09-01 04:45] LABS: ANION GAP 8 mmol/L (5-15); BLOOD UREA NITROGEN 39 mg/dL (7-18); CALCIUM 8.5 MG/DL (8.5-10.1); CARBON DIOXIDE 25 MMOL/L (21-32); CHLORIDE 109 MMOL/L (98-107); CREATININE 3.4 MG/DL (0.55-1.30); POTASSIUM 3.6 MMOL/L (3.5-5.1); SODIUM 142 MMOL/L (136-145)
[2018-09-01] MEDS: Lactulose 20gm/30ml UDC ORAL SCH ×3 (05:18→17:37)
[2018-09-01] MEDS: Morphine Sulfate 2mg/ml Inj IVP PRN (05:18)
[2018-09-01] MEDS: Octreotide Acetate 500 MCG in Sodium Chloride 500ML 499 ML IV SCH ×2 (07:00→17:37)
--- NOTE | 2018-09-01 08:14 | General Progress Note ---
Assessment/Plan Problem List: (1) Edema ICD Codes: R60.9 - Edema, unspecified SNOMED: 473659610, 366761822 (2) Anemia ICD Codes: D64.9 - Anemia, unspecified SNOMED: 487476981 (3) Alcoholic cirrhosis ICD Codes: K70.30 - Alcoholic cirrhosis of liver without ascites SNOMED: 124939446 (4) Esophageal varices ICD Codes: I85.00 - Esophageal varices without bleeding SNOMED: 76839649 (5) Leukocytosis ICD Codes: D72.829 - Elevated white blood cell count, unspecified SNOMED: 267566312, 323900327 (6) GI bleed ICD Codes: K92.2 - Gastrointestinal hemorrhage, unspecified SNOMED: 45758360 (7) LENI (acute kidney injury) ICD Codes: N17.9 - Acute kidney failure, unspecified SNOMED: 65447584 (8) Sepsis ICD Codes: A41.9 - Sepsis, unspecified organism SNOMED: 96079944 (9) Seizure ICD Codes: R56.9 - Unspecified convulsions SNOMED: 42017016 Status: unchanged Assessment/Plan abx oe pulm tx transfuse prn gi heme f/u dialysis prn seizure control cbc bmp am promise ltach if clear Subjective Constitutional: Reports: weakness Allergies: Coded Allergies: LORAZEPAM (Verified Allergy, Unknown, 05/21/18) PENICILLINS (Verified Allergy, Unknown, 05/21/18) All Systems: reviewed and negative except above Subjective 02nc tired sl bleeding permacath Objective Last 24 Hour Vital Signs Date Time Temp Pulse Resp B/P (MAP) Pulse Ox O2 Delivery O2 Flow Rate FiO2 09/01/18 06:00 99.5 87 20 104/58 (73) 100 99.5 09/01/18 05:00 100.6 85 20 119/64 (82) 100 100.6 09/01/18 04:00 101.7 91 20 126/70 (88) 100 101.7 09/01/18 04:00 Nasal Cannula 2.0 09/01/18 00:00 91 09/01/18 00:00 99.5 92 16 131/72 (91) 100 99.5 09/01/18 00:00 Nasal Cannula 2.0 08/31/18 20:00 98.2 90 20 114/66 (82) 100 98.2 10/20/18 20:00 99 Nasal Cannula 2.0 28 08/31/18 20:00 96 08/31/18 20:00 Nasal Cannula 2.0 08/31/18 20:00 Nasal Cannula 2.0 28 08/31/18 16:00 97.9 84 20 109/62 (78) 100 97.9 08/31/18 16:00 Nasal Cannula 2.0 08/31/18 16:00 90 08/31/18 12:00 Nasal Cannula 2.0 08/31/18 11:44 81 08/31/18 11:00 97.9 79 20 117/67 (84) 100 97.9 08/31/18 10:16 81 08/31/18 09:35 98.2 85 22 161/88 (112) 100 98.2 08/31/18 09:00 Nasal Cannula 3.0 08/31/18 08:32 96 Nasal Cannula 2.0 28 08/31/18 08:31 Nasal Cannula 2.0 28 Intake and Output 08/31/18 09/01/18 19:00 07:00 Intake Total 1240 ml 1000 ml Output Total 175 ml 350 ml Balance 1065 ml 650 ml Intake Oral 740 ml 500 ml IV Total 500 ml 500 ml Output Urine Total 75 ml 100 ml Stool Total 100 ml 250 ml Laboratory Tests 08/31/18 11:02: Prothrombin Time 15.2H, Prothromb Time International Ratio 1.5H, Activated Partial Thromboplast Time 33 09/01/18 03:52: White Blood Count 10.2, Red Blood Count 2.46L, Hemoglobin 7.6L, Hematocrit 23.3L , Mean Corpuscular Volume 95, Mean Corpuscular Hemoglobin 30.7, Mean Corpuscular Hemoglobin Concent 32.4, Red Cell Distribution Width 18.1H, Platelet Count 75L, Mean Platelet Volume 9.2, Neutrophils (%) (Auto) , Lymphocytes (%) (Auto) , Monocytes (%) (Auto) , Eosinophils (%) (Auto) , Basophils (%) (Auto) , Differential Total Cells Counted 100, Neutrophils % ( Manual) 73, Lymphocytes % (Manual) 19L, Monocytes % (Manual) 7, Eosinophils % ( Manual) 1, Basophils % (Manual) 0, Band Neutrophils 0, Platelet Estimate DecreasedL, Platelet Morphology Normal, Hypochromasia 1+, Anisocytosis 1+, Sodium Level 142, Potassium Level 3.6, Chloride Level 109H, Carbon Dioxide Level 25, Anion Gap 8, Blood Urea Nitrogen 39H, Creatinine 3.4H, Estimat Glomerular Filtration Rate 15.3, Glucose Level 145H, Calcium Level 8.5 Height (Feet): 5 Height (Inches): 3.00 Weight (Pounds): 323 General Appearance: lethargic EENT: normal ENT inspection Neck: normal alignment Cardiovascular: normal peripheral pulses, normal rate, regular rhythm Respiratory/Chest: chest wall non-tender, accessory muscle use Abdomen: normal bowel sounds, non tender, soft Extremities: normal inspection Edema: 1+ Arm (L), 1+ Arm (R), 1+ Leg (L), 1+ Leg (R), 1+ Pedal (L), 1+ Pedal ( R), 1+ Generalized Edema: trace edema Neurologic: responsive, motor weakness Skin: normal pigmentation, warm/dry Chauncey Fuentes DO Sep 01, 2018 08:14
[2018-09-01] MEDS: Pantoprazole Inj IVP SCH (08:23)
[2018-09-01] MEDS ORDERED: Tubing IV Secondary IV ONE (08:38)
[2018-09-01] MEDS ORDERED: NS 275ml ONE (08:38)
--- NOTE | 2018-09-01 08:51 | Nephrology Progress Note ---
Assessment/Plan Assessment/Plan 1. ESRD- multifact ATN ( hypotension/intravasc vol dep/?hepatorenal/Anemia) - ATN nonresolving, HD tomorrow 2. Hypok+- replace prn 3. 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 Bleeding Permacath- resolved 5. GI Bleed/Anemia- per GI mgmt - prn blood tx Hgb <7 Subjective Date patient seen: Sep 01, 2018 Time patient seen: 08:49 ROS Limited/Unobtainable: No Constitutional: Reports: weakness Allergies: Coded Allergies: LORAZEPAM (Verified Allergy, Unknown, 05/21/18) PENICILLINS (Verified Allergy, Unknown, 05/21/18) Subjective Patient permacath stopped bleeding Objective Last 24 Hour Vital Signs Date Time Temp Pulse Resp B/P (MAP) Pulse Ox O2 Delivery O2 Flow Rate FiO2 09/01/18 06:00 99.5 87 20 104/58 (73) 100 99.5 09/01/18 05:00 100.6 85 20 119/64 (82) 100 100.6 09/01/18 04:00 101.7 91 20 126/70 (88) 100 101.7 09/01/18 04:00 Nasal Cannula 2.0 09/01/18 00:00 91 09/01/18 00:00 99.5 92 16 131/72 (91) 100 99.5 09/01/18 00:00 Nasal Cannula 2.0 08/31/18 20:00 98.2 90 20 114/66 (82) 100 98.2 08/31/18 20:00 99 Nasal Cannula 2.0 28 08/31/18 20:00 96 08/31/18 20:00 Nasal Cannula 2.0 08/31/18 20:00 Nasal Cannula 2.0 28 08/31/18 16:00 97.9 84 20 109/62 (78) 100 97.9 08/31/18 16:00 Nasal Cannula 2.0 08/31/18 16:00 90 08/31/18 12:00 Nasal Cannula 2.0 08/31/18 11:44 81 08/31/18 11:00 97.9 79 20 117/67 (84) 100 97.9 08/31/18 10:16 81 08/31/18 09:35 98.2 85 22 161/88 (112) 100 98.2 08/31/18 09:00 Nasal Cannula 3.0 Intake and Output 08/31/18 09/01/18 19:00 07:00 Intake Total 1240 ml 1000 ml Output Total 175 ml 350 ml Balance 1065 ml 650 ml Intake Oral 740 ml 500 ml IV Total 500 ml 500 ml Output Urine Total 75 ml 100 ml Stool Total 100 ml 250 ml Laboratory Tests 08/31/18 11:02: Prothrombin Time 15.2H, Prothromb Time International Ratio 1.5H, Activated Partial Thromboplast Time 33 09/01/18 03:52: White Blood Count 10.2, Red Blood Count 2.46L, Hemoglobin 7.6L, Hematocrit 23.3L , Mean Corpuscular Volume 95, Mean Corpuscular Hemoglobin 30.7, Mean Corpuscular Hemoglobin Concent 32.4, Red Cell Distribution Width 18.1H, Platelet Count 75L, Mean Platelet Volume 9.2, Neutrophils (%) (Auto) , Lymphocytes (%) (Auto) , Monocytes (%) (Auto) , Eosinophils (%) (Auto) , Basophils (%) (Auto) , Differential Total Cells Counted 100, Neutrophils % ( Manual) 73, Lymphocytes % (Manual) 19L, Monocytes % (Manual) 7, Eosinophils % ( Manual) 1, Basophils % (Manual) 0, Band Neutrophils 0, Platelet Estimate DecreasedL, Platelet Morphology Normal, Hypochromasia 1+, Anisocytosis 1+, Sodium Level 142, Potassium Level 3.6, Chloride Level 109H, Carbon Dioxide Level 25, Anion Gap 8, Blood Urea Nitrogen 39H, Creatinine 3.4H, Estimat Glomerular Filtration Rate 15.3, Glucose Level 145H, Calcium Level 8.5 Height (Feet): 5 Height (Inches): 3.00 Weight (Pounds): 323 General Appearance: no apparent distress, alert EENT: normal ENT inspection Neck: normal alignment, supple Cardiovascular: normal rate, regular rhythm Respiratory/Chest: lungs clear, normal breath sounds Abdomen: non tender, distended Edema: 4+ Arm (L), 4+ Arm (R), 4+ Leg (L), 4+ Leg (R), 4+ Pedal (L), 4+ Pedal ( R), 4+ Generalized Amos Pinon MD Sep 01, 2018 08:51
[2018-09-01 10:56] LABS: HEMATOCRIT 22.7 % (37.0-47.0); HEMOGLOBIN 7.5 G/DL (12.0-16.0); MEAN CORPUSCULAR VOLUME 94 FL (80-99); PLATELET COUNT 77 K/UL (150-450); RED BLOOD COUNT 2.41 M/UL (4.20-5.40); RED CELL DISTRIBUTION WIDTH 17.9 % (11.6-14.8)
[2018-09-01] MEDS ORDERED: Phytonadione 10 MG in D5W 55 ML IVPB ONE (11:00)
[2018-09-01 11:07] LABS: INR 1.4 (0.9-1.1)
--- NOTE | 2018-09-01 14:41 | General Progress Note ---
Assessment/Plan Status: unchanged Assessment/Plan # Thrombocytopenia. Baseline appears to be 50-80k. Is most likely related to underlying liver disease with e/o portal htn. Hx of ETOH use. She does have evidence of hepatic cirrhosis, with surface nodularity an increased echogenicity. Evidence of portal hypertension, with ascites, splenomegaly, and flow reversal within the main and right portal vein. Evidence of prior cholecystectomy. Negative for dilated ducts. Prior CT and Us have been reviewed , hepatitis and hiv are both negative. Currently the count is closer to 15-50k. --> Peripheral smear ordered and is negative for blasts --> Abx and other meds have been reviewed. --> hold off heparin, asa, or plavix --> Transfuse plts if plt count >10k or if 20k and with fever --> Agree with lactulose and potential rifaximin for elev ammonia --> PLT Tx: 08/31, # Coagulopathy is likely related to underlying liver disease, liver us shows "Evidence of chronic liver disease with enlarged fatty liver and stigmata of portal hypertension including hepatofugal portal venous flow." --> no evidence of bleeding hold off unless bleeding is noted --> VIt K or ffp before a procedure # Anemia due to gastrointestinal bleed. Hemoglobin on admission 5-8 range, likely bleed related, ferritin is 1125 --> Gastroenterology to evaluate and manage. --> was in the past on octreotide drip --> Hgb goal >7. Transfuse prn. # Anemia of chronic disease, multifactorial --> Previous w/u has been reviewed. --> Will trend CBC daily --> Hgb goal above 7 --> Blood tx: 08/17,08/18, 08/19, 08/23, 08/25, 08/29, 08/31, # Acute kidney injury secondary to intravascular volume depletion along with ischemic acute tubular necrosis from hypotension. --> Nephro following. Appreciate recs. # Hyperkalemia secondary to renal insufficiency and gastrointestinal bleed. --> The patient was given Kayexalate 60 g already. 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 Greatly appreciate consultation! Subjective Date patient seen: Sep 01, 2018 Constitutional: Reports: fever Hematologic/Lymphatic: Reports: anemia Allergies: Coded Allergies: LORAZEPAM (Verified Allergy, Unknown, 05/21/18) PENICILLINS (Verified Allergy, Unknown, 05/21/18) All Systems: reviewed and negative except above Subjective Pt febrile overnight, cooling measures applied. Currently afebrile. Permacath dressing saturated with moderate amount of blood. 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 Objective Last 24 Hour Vital Signs Date Time Temp Pulse Resp B/P (MAP) Pulse Ox O2 Delivery O2 Flow Rate FiO2 09/01/18 12:00 Nasal Cannula 2.0 09/01/18 12:00 98.1 88 18 111/59 (76) 100 98.1 09/01/18 11:42 89 09/01/18 08:00 Nasal Cannula 2.0 09/01/18 08:00 97.7 87 18 116/63 (80) 100 97.7 09/01/18 07:41 88 09/01/18 06:00 99.5 87 20 104/58 (73) 100 99.5 09/01/18 05:00 100.6 85 20 119/64 (82) 100 100.6 09/01/18 04:00 101.7 91 20 126/70 (88) 100 101.7 09/01/18 04:00 Nasal Cannula 2.0 09/01/18 00:00 91 09/01/18 00:00 99.5 92 16 131/72 (91) 100 99.5 09/01/18 00:00 Nasal Cannula 2.0 08/31/18 20:00 98.2 90 20 114/66 (82) 100 98.2 08/31/18 20:00 99 Nasal Cannula 2.0 28 08/31/18 20:00 96 08/31/18 20:00 Nasal Cannula 2.0 08/31/18 20:00 Nasal Cannula 2.0 28 08/31/18 16:00 97.9 84 20 109/62 (78) 100 97.9 08/31/18 16:00 Nasal Cannula 2.0 08/31/18 16:00 90 Intake and Output 08/31/18 09/01/18 19:00 07:00 Intake Total 1240 ml 1000 ml Output Total 175 ml 350 ml Balance 1065 ml 650 ml Intake Oral 740 ml 500 ml IV Total 500 ml 500 ml Output Urine Total 75 ml 100 ml Stool Total 100 ml 250 ml Laboratory Tests 09/01/18 03:52: White Blood Count 10.2, Red Blood Count 2.46L, Hemoglobin 7.6L, Hematocrit 23.3L , Mean Corpuscular Volume 95, Mean Corpuscular Hemoglobin 30.7, Mean Corpuscular Hemoglobin Concent 32.4, Red Cell Distribution Width 18.1H, Platelet Count 75L, Mean Platelet Volume 9.2, Neutrophils (%) (Auto) , Lymphocytes (%) (Auto) , Monocytes (%) (Auto) , Eosinophils (%) (Auto) , Basophils (%) (Auto) , Differential Total Cells Counted 100, Neutrophils % ( Manual) 73, Lymphocytes % (Manual) 19L, Monocytes % (Manual) 7, Eosinophils % ( Manual) 1, Basophils % (Manual) 0, Band Neutrophils 0, Platelet Estimate DecreasedL, Platelet Morphology Normal, Hypochromasia 1+, Anisocytosis 1+, Sodium Level 142, Potassium Level 3.6, Chloride Level 109H, Carbon Dioxide Level 25, Anion Gap 8, Blood Urea Nitrogen 39H, Creatinine 3.4H, Estimat Glomerular Filtration Rate 15.3, Glucose Level 145H, Calcium Level 8.5 09/01/18 10:25: White Blood Count 10.0, Red Blood Count 2.41L, Hemoglobin 7.5L, Hematocrit 22.7L , Mean Corpuscular Volume 94, Mean Corpuscular Hemoglobin 31.3H, Mean Corpuscular Hemoglobin Concent 33.2, Red Cell Distribution Width 17.9H, Platelet Count 77L, Mean Platelet Volume 8.5, Neutrophils (%) (Auto) , Lymphocytes (%) (Auto) , Monocytes (%) (Auto) , Eosinophils (%) (Auto) , Basophils (%) (Auto) , Differential Total Cells Counted 100, Neutrophils % ( Manual) 66, Lymphocytes % (Manual) 20, Monocytes % (Manual) 13H, Eosinophils % ( Manual) 1, Basophils % (Manual) 0, Band Neutrophils 0, Platelet Estimate DecreasedL, Platelet Morphology Normal, Prothrombin Time 14.8H, Prothromb Time International Ratio 1.4H Height (Feet): 5 Height (Inches): 3.00 Weight (Pounds): 323 General Appearance: no apparent distress EENT: PERRL/EOMI Neck: normal alignment Cardiovascular: normal peripheral pulses Respiratory/Chest: no respiratory distress Abdomen: soft Michael Hernandez MD Sep 01, 2018 14:41
[2018-09-01] MEDS: Dyna-Hex 2% Top Sol 2oz TOPIC SCH (20:32)
[2018-09-02] VITALS: BP 120/65
[2018-09-02] MEDS: Lactulose 20gm/30ml UDC ORAL SCH ×4 (00:06→18:07)
[2018-09-02] MEDS: Octreotide Acetate 500 MCG in Sodium Chloride 500ML 499 ML IV SCH ×2 (02:38→13:04)
[2018-09-02 04:00] VITALS: BP 115/63
[2018-09-02 04:19] LABS: HEMATOCRIT 22.5 % (37.0-47.0); HEMOGLOBIN 7.5 G/DL (12.0-16.0); MEAN CORPUSCULAR VOLUME 93 FL (80-99); PLATELET COUNT 80 K/UL (150-450); RED BLOOD COUNT 2.41 M/UL (4.20-5.40); WHITE BLOOD COUNT 9.1 K/UL (4.8-10.8)
[2018-09-02 04:22] LABS: ANION GAP 8 mmol/L (5-15); BLOOD UREA NITROGEN 37 mg/dL (7-18); CALCIUM 8.3 MG/DL (8.5-10.1); CARBON DIOXIDE 23 MMOL/L (21-32); CHLORIDE 109 MMOL/L (98-107); CREATININE 3.2 MG/DL (0.55-1.30); INR 1.4 (0.9-1.1); POTASSIUM 3.5 MMOL/L (3.5-5.1); SODIUM 140 MMOL/L (136-145)
[2018-09-02 07:50] VITALS: BP 121/67
--- NOTE | 2018-09-02 08:07 | Nephrology Progress Note ---
Assessment/Plan Assessment/Plan 1. ESRD- multifact ATN ( hypotension/intravasc vol dep/?hepatorenal/Anemia) - Hold HD and monitor for renal recovery 2. Hypok+- replace today 3. 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 Edema- lasix x 1 today 5. GI Bleed/Anemia- per GI mgmt - prn blood tx Hgb <7 Subjective Date patient seen: Sep 02, 2018 Time patient seen: 08:04 ROS Limited/Unobtainable: No Allergies: Coded Allergies: LORAZEPAM (Verified Allergy, Unknown, 05/21/18) PENICILLINS (Verified Allergy, Unknown, 05/21/18) Subjective Patient more awke and coherent Objective Last 24 Hour Vital Signs Date Time Temp Pulse Resp B/P (MAP) Pulse Ox O2 Delivery O2 Flow Rate FiO2 09/02/18 07:50 98.1 91 19 121/67 (85) 100 98.1 09/02/18 04:00 98.4 90 20 115/63 (80) 100 98.4 09/02/18 04:00 Nasal Cannula 2.0 09/02/18 04:00 95 09/02/18 00:00 87 09/02/18 00:00 98.2 90 20 120/65 (83) 100 98.2 09/02/18 00:00 Nasal Cannula 2.0 09/01/18 20:00 90 09/01/18 20:00 98.2 92 20 119/63 (81) 100 98.2 09/01/18 20:00 Nasal Cannula 2.0 09/01/18 16:00 Nasal Cannula 2.0 09/01/18 15:51 98.4 94 20 122/65 (84) 100 98.4 09/01/18 15:26 87 09/01/18 12:00 Nasal Cannula 2.0 09/01/18 12:00 98.1 88 18 111/59 (76) 100 98.1 09/01/18 11:42 89 Intake and Output 09/01/18 09/02/18 19:00 07:00 Intake Total 1705.166 ml 1150 ml Output Total 400 ml 450 ml Balance 1305.166 ml 700 ml Intake Oral 1080 ml 300 ml IV Total 625.166 ml 600 ml Blood Product 250 ml Output Urine Total 150 ml 200 ml Stool Total 250 ml 250 ml Laboratory Tests 09/01/18 10:25: White Blood Count 10.0, Red Blood Count 2.41L, Hemoglobin 7.5L, Hematocrit 22.7L , Mean Corpuscular Volume 94, Mean Corpuscular Hemoglobin 31.3H, Mean Corpuscular Hemoglobin Concent 33.2, Red Cell Distribution Width 17.9H, Platelet Count 77L, Mean Platelet Volume 8.5, Neutrophils (%) (Auto) , Lymphocytes (%) (Auto) , Monocytes (%) (Auto) , Eosinophils (%) (Auto) , Basophils (%) (Auto) , Differential Total Cells Counted 100, Neutrophils % ( Manual) 66, Lymphocytes % (Manual) 20, Monocytes % (Manual) 13H, Eosinophils % ( Manual) 1, Basophils % (Manual) 0, Band Neutrophils 0, Platelet Estimate DecreasedL, Platelet Morphology Normal, Prothrombin Time 14.8H, Prothromb Time International Ratio 1.4H 09/02/18 04:00: White Blood Count 9.1, Red Blood Count 2.41L, Hemoglobin 7.5L, Hematocrit 22.5L , Mean Corpuscular Volume 93, Mean Corpuscular Hemoglobin 31.1H, Mean Corpuscular Hemoglobin Concent 33.3, Red Cell Distribution Width 17.0H, Platelet Count 80L, Mean Platelet Volume 9.1, Neutrophils (%) (Auto) , Lymphocytes (%) (Auto) , Monocytes (%) (Auto) , Eosinophils (%) (Auto) , Basophils (%) (Auto) , Neutrophils % (Manual) [Pending], Lymphocytes % (Manual) [Pending], Platelet Estimate [Pending], Platelet Morphology [Pending], Prothrombin Time 14.8H, Prothromb Time International Ratio 1.4H, Sodium Level 140, Potassium Level 3.5, Chloride Level 109H, Carbon Dioxide Level 23, Anion Gap 8, Blood Urea Nitrogen 37H, Creatinine 3.2H, Estimat Glomerular Filtration Rate 16.4, Glucose Level 117H, Calcium Level 8.3L, Ammonia 77H Height (Feet): 5 Height (Inches): 3.00 Weight (Pounds): 323 General Appearance: no apparent distress, alert EENT: normal ENT inspection Neck: normal alignment, supple Cardiovascular: normal rate, regular rhythm Respiratory/Chest: lungs clear, normal breath sounds Abdomen: soft, distended Edema: 2+ Arm (L), 2+ Arm (R), 2+ Leg (L), 2+ Leg (R), 2+ Pedal (L), 2+ Pedal ( R), 2+ Generalized Amos Pinon MD Sep 02, 2018 08:07
[2018-09-02] MEDS: Pantoprazole Inj IVP SCH (08:48)
[2018-09-02] MEDS: Morphine Sulfate 2mg/ml Inj IVP PRN (08:51)
--- NOTE | 2018-09-02 11:22 | Infectious Diseases Prog Note ---
Assessment/Plan Assessment/Plan Assessment/Plan The patient is a 38-year-old female with: Fever, Sp Probable sepsis, SP -Bcx neg Leukocytosis; SP -CXR: Pulmonary vascular congestion with increased interstitial markings , likely representing interstitial edema. This appears improved relative to the chest x-ray from 07/22/18 Urinary tract infection, s/p Rx u/a wbc 60-80, nit+, leuk large; ucx ESBL K. pna ( R zosyn, S ertapenem), Citrobacter freundi (R ancef, I Impienem, S ertapenem) History of hepatitis panel and HIV serology negative. GIB -s/p EGD 08/19: esophageal varices Seizures episodes 08/24 (?related to carbapenem) Acute renal insufficiency.; on HD -Renal US: unremarkable Thrombocytopenia S/p permacath placement 08/30,now w/ bleeding from site Encephalopathy, multifactorial, ongoin -. Alcoholic cirrhosis -. Esophageal varices PLAN: -Continue to monitor off abx , will start pt on emperic AB Rx if more episodes of fever -08/25 SP Ertapenem #7 -08/19 SP cefepime and Flagyl #3 -. Monitor BMP. -. Monitor cultures (blood).. -.Renal, GI f/u -seizure precautions -aspiration precautions - Blood and Urine Cx Subjective Allergies: Coded Allergies: LORAZEPAM (Verified Allergy, Unknown, 05/21/18) PENICILLINS (Verified Allergy, Unknown, 05/21/18) Subjective sp fever over 24 hr ago , no cough Objective Vital Signs Last 24 Hour Vital Signs Date Time Temp Pulse Resp B/P (MAP) Pulse Ox O2 Delivery O2 Flow Rate FiO2 09/02/18 09:21 98.1 09/02/18 08:51 98.1 09/02/18 08:00 92 09/02/18 08:00 Nasal Cannula 2.0 09/02/18 07:50 98.1 91 19 121/67 (85) 100 98.1 09/02/18 04:00 98.4 90 20 115/63 (80) 100 98.4 09/02/18 04:00 Nasal Cannula 2.0 09/02/18 04:00 95 09/02/18 00:00 87 09/02/18 00:00 98.2 90 20 120/65 (83) 100 98.2 09/02/18 00:00 Nasal Cannula 2.0 09/01/18 20:00 90 09/01/18 20:00 98.2 92 20 119/63 (81) 100 98.2 09/01/18 20:00 Nasal Cannula 2.0 09/01/18 16:00 Nasal Cannula 2.0 09/01/18 15:51 98.4 94 20 122/65 (84) 100 98.4 09/01/18 15:26 87 09/01/18 12:00 Nasal Cannula 2.0 09/01/18 12:00 98.1 88 18 111/59 (76) 100 98.1 09/01/18 11:42 89 Height (Feet): 5 Height (Inches): 3.00 Weight (Pounds): 323 HEENT: anicteric Respiratory/Chest: lungs clear Cardiovascular: normal rate Abdomen: no organomegaly Laboratory Tests Test 09/02/18 04:00 White Blood Count 9.1 K/UL (4.8-10.8) Red Blood Count 2.41 M/UL (4.20-5.40) L Hemoglobin 7.5 G/DL (12.0-16.0) L Hematocrit 22.5 % (37.0-47.0) L Mean Corpuscular Volume 93 FL (80-99) Mean Corpuscular Hemoglobin 31.1 PG (27.0-31.0) H Mean Corpuscular Hemoglobin Concent 33.3 G/DL (32.0-36.0) Red Cell Distribution Width 17.0 % (11.6-14.8) H Platelet Count 80 K/UL (150-450) L Mean Platelet Volume 9.1 FL (6.5-10.1) Neutrophils (%) (Auto) % (45.0-75.0) Lymphocytes (%) (Auto) % (20.0-45.0) Monocytes (%) (Auto) % (1.0-10.0) Eosinophils (%) (Auto) % (0.0-3.0) Basophils (%) (Auto) % (0.0-2.0) Differential Total Cells Counted 100 Neutrophils % (Manual) 77 % (45-75) H Lymphocytes % (Manual) 13 % (20-45) L Monocytes % (Manual) 9 % (1-10) Eosinophils % (Manual) 1 % (0-3) Basophils % (Manual) 0 % (0-2) Band Neutrophils 0 % (0-8) Platelet Estimate Decreased L Platelet Morphology Normal Anisocytosis 1+ Prothrombin Time 14.8 SEC (9.30-11.50) H Prothromb Time International Ratio 1.4 (0.9-1.1) H Sodium Level 140 MMOL/L (136-145) Potassium Level 3.5 MMOL/L (3.5-5.1) Chloride Level 109 MMOL/L (98-107) H Carbon Dioxide Level 23 MMOL/L (21-32) Anion Gap 8 mmol/L (5-15) Blood Urea Nitrogen 37 mg/dL (7-18) H Creatinine 3.2 MG/DL (0.55-1.30) H Estimat Glomerular Filtration Rate 16.4 mL/min (>60) Glucose Level 117 MG/DL (74-106) H Calcium Level 8.3 MG/DL (8.5-10.1) L Ammonia 77 umol/L (11-32) H Current Medications Medications (Trade) Dose Ordered Sig/Abner Route PRN Reason Start Time Stop Time Status Last Admin Dose Admin Al Hydroxide/Mg Hydroxide (Mylanta II) 30 ml Q6H PRN ORAL dyspepsia 08/31/18 11:00 09/27/18 10:59 Chlorhexidine Gluconate (Sierra-Hex 2%) 1 applic DAILY@2000 TOPIC 08/31/18 20:00 09/18/18 19:59 09/01/18 20:32 Dextrose (Dextrose 50%) 25 ml Q30M PRN IV Hypoglycemia 08/31/18 11:00 09/23/18 10:59 Dextrose (Dextrose 50%) 50 ml Q30M PRN IV Hypoglycemia 08/31/18 11:00 09/16/18 10:59 Lactulose (Cephulac) 30 gm EVERY 6 HOURS ORAL 08/31/18 12:00 09/16/18 11:59 09/02/18 06:09 Morphine Sulfate (Morphine Sulfate) 2 mg Q4H PRN IVP For Pain 08/31/18 11:00 09/06/18 10:59 09/02/18 08:51 Octreotide Acetate 500 mcg/ Sodium Chloride 500 ml @ 50 mls/hr Q10H IV 08/31/18 11:00 11/14/18 10:59 09/02/18 02:38 Ondansetron HCl (Zofran) 4 mg Q6H PRN IVP Nausea & Vomiting 08/31/18 11:00 09/27/18 10:59 Pantoprazole (Protonix) 40 mg DAILY IVP 09/01/18 09:00 09/24/18 05:59 09/02/18 08:48 Rifaximin (Xifaxan) 550 mg EVERY 12 HOURS ORAL 08/31/18 21:00 09/05/18 08:59 09/02/18 08:49 Laz Monroy MD Sep 02, 2018 11:22
--- NOTE | 2018-09-02 11:24 | Pulmonology Progress Note ---
Assessment/Plan Problems: (1) Acute encephalopathy (2) LENI (acute kidney injury) (3) ATN (acute tubular necrosis) (4) Coagulopathy (5) Esophageal varices (6) Alcoholic cirrhosis (7) End stage liver disease Assessment/Plan supportive care more awake, eating on Lactulose check ammonia level on abx check h/h, fever resolved Subjective ROS Limited/Unobtainable: Yes Interval Events: somnolent Allergies: Coded Allergies: LORAZEPAM (Verified Allergy, Unknown, 05/21/18) PENICILLINS (Verified Allergy, Unknown, 05/21/18) Objective Last 24 Hour Vital Signs Date Time Temp Pulse Resp B/P (MAP) Pulse Ox O2 Delivery O2 Flow Rate FiO2 09/02/18 09:21 98.1 09/02/18 08:51 98.1 09/02/18 08:00 92 09/02/18 08:00 Nasal Cannula 2.0 09/02/18 07:50 98.1 91 19 121/67 (85) 100 98.1 09/02/18 04:00 98.4 90 20 115/63 (80) 100 98.4 09/02/18 04:00 Nasal Cannula 2.0 09/02/18 04:00 95 09/02/18 00:00 87 09/02/18 00:00 98.2 90 20 120/65 (83) 100 98.2 09/02/18 00:00 Nasal Cannula 2.0 09/01/18 20:00 90 09/01/18 20:00 98.2 92 20 119/63 (81) 100 98.2 09/01/18 20:00 Nasal Cannula 2.0 09/01/18 16:00 Nasal Cannula 2.0 09/01/18 15:51 98.4 94 20 122/65 (84) 100 98.4 09/01/18 15:26 87 09/01/18 12:00 Nasal Cannula 2.0 09/01/18 12:00 98.1 88 18 111/59 (76) 100 98.1 09/01/18 11:42 89 Intake and Output 09/01/18 09/02/18 19:00 07:00 Intake Total 1705.166 ml 1150 ml Output Total 400 ml 450 ml Balance 1305.166 ml 700 ml Intake Oral 1080 ml 300 ml IV Total 625.166 ml 600 ml Blood Product 250 ml Output Urine Total 150 ml 200 ml Stool Total 250 ml 250 ml General Appearance: WD/WN HEENT: normocephalic, anicteric Respiratory/Chest: chest wall non-tender, lungs clear Breasts: no masses Cardiovascular: normal peripheral pulses, regular rhythm Abdomen: normal bowel sounds Genitourinary: normal external genitalia Extremities: no clubbing Skin: no rash 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, no motor/sensory deficits Laboratory Tests 09/02/18 04:00: White Blood Count 9.1, Red Blood Count 2.41L, Hemoglobin 7.5L, Hematocrit 22.5L , Mean Corpuscular Volume 93, Mean Corpuscular Hemoglobin 31.1H, Mean Corpuscular Hemoglobin Concent 33.3, Red Cell Distribution Width 17.0H, Platelet Count 80L, Mean Platelet Volume 9.1, Neutrophils (%) (Auto) , Lymphocytes (%) (Auto) , Monocytes (%) (Auto) , Eosinophils (%) (Auto) , Basophils (%) (Auto) , Differential Total Cells Counted 100, Neutrophils % ( Manual) 77H, Lymphocytes % (Manual) 13L, Monocytes % (Manual) 9, Eosinophils % ( Manual) 1, Basophils % (Manual) 0, Band Neutrophils 0, Platelet Estimate DecreasedL, Platelet Morphology Normal, Anisocytosis 1+, Prothrombin Time 14.8H , Prothromb Time International Ratio 1.4H, Sodium Level 140, Potassium Level 3.5 , Chloride Level 109H, Carbon Dioxide Level 23, Anion Gap 8, Blood Urea Nitrogen 37H, Creatinine 3.2H, Estimat Glomerular Filtration Rate 16.4, Glucose Level 117H, Calcium Level 8.3L, Ammonia 77H Current Medications Medications (Trade) Dose Ordered Sig/Abner Route PRN Reason Start Time Stop Time Status Last Admin Dose Admin Al Hydroxide/Mg Hydroxide (Mylanta II) 30 ml Q6H PRN ORAL dyspepsia 08/31/18 11:00 09/27/18 10:59 Chlorhexidine Gluconate (Sierra-Hex 2%) 1 applic DAILY@1999 TOPIC 08/31/18 20:00 09/18/18 19:59 09/01/18 20:32 Dextrose (Dextrose 50%) 25 ml Q30M PRN IV Hypoglycemia 08/31/18 11:00 09/23/18 10:59 Dextrose (Dextrose 50%) 50 ml Q30M PRN IV Hypoglycemia 08/31/18 11:00 09/16/18 10:59 Lactulose (Cephulac) 30 gm EVERY 6 HOURS ORAL 08/31/18 12:00 09/16/18 11:59 09/02/18 06:09 Morphine Sulfate (Morphine Sulfate) 2 mg Q4H PRN IVP For Pain 08/31/18 11:00 09/06/18 10:59 09/02/18 08:51 Octreotide Acetate 500 mcg/ Sodium Chloride 500 ml @ 50 mls/hr Q10H IV 08/31/18 11:00 09/25/18 10:59 09/02/18 02:38 Ondansetron HCl (Zofran) 4 mg Q6H PRN IVP Nausea & Vomiting 08/31/18 11:00 09/27/18 10:59 Pantoprazole (Protonix) 40 mg DAILY IVP 09/01/18 09:00 09/24/18 05:59 09/02/18 08:48 Rifaximin (Xifaxan) 550 mg EVERY 12 HOURS ORAL 08/31/18 21:00 09/05/18 08:59 09/02/18 08:49 Jose Roberto Burleson MD Sep 02, 2018 11:24
--- NOTE | 2018-09-02 11:55 | GI Progress Note ---
Assessment/Plan Problems: (1) Ascites ICD Codes: R18.8 - Other ascites SNOMED: 754102020 (2) Alcoholic cirrhosis ICD Codes: K70.30 - Alcoholic cirrhosis of liver without ascites SNOMED: 116580587 (3) Esophageal varices ICD Codes: I85.00 - Esophageal varices without bleeding SNOMED: 26763133 (4) Anemia ICD Codes: D64.9 - Anemia, unspecified SNOMED: 808251087 (5) Chronic renal insufficiency ICD Codes: N18.9 - Chronic kidney disease, unspecified SNOMED: 777998915 (6) Coagulopathy ICD Codes: D68.9 - Coagulation defect, unspecified SNOMED: 71029288 (7) Hemorrhagic shock ICD Codes: R57.8 - Other shock SNOMED: 316266 (8) GI bleed ICD Codes: K92.2 - Gastrointestinal hemorrhage, unspecified SNOMED: 47966607 Status: progressing Status Narrative Discussed with Dr. Rodriguez. Assessment/Plan s/p EGD >> Esophageal varices, status post banding x7. more awake and alert, ST evaluation >> passed RECOMMENDATIONS: on renal diet, tolerating ppi BID transfuse prn lactulose + Xifaxan very poor prognosis portal HTN management with propranolol fu labs The patient was seen and examined at bedside and all new and available data was reviewed in the patients chart. I agree with the above findings, impression and plan. (Patient seen earlier today. Signature stamp does not reflect patient encounter time.). - Christopher Rodriguez MD Subjective Subjective abdominal pain fatigue Objective Last 24 Hour Vital Signs Date Time Temp Pulse Resp B/P (MAP) Pulse Ox O2 Delivery O2 Flow Rate FiO2 09/02/18 09:21 98.1 09/02/18 08:51 98.1 09/02/18 08:00 92 09/02/18 08:00 Nasal Cannula 2.0 09/02/18 07:50 98.1 91 19 121/67 (85) 100 98.1 09/02/18 04:00 98.4 90 20 115/63 (80) 100 98.4 09/02/18 04:00 Nasal Cannula 2.0 09/02/18 04:00 95 09/02/18 00:00 87 09/02/18 00:00 98.2 90 20 120/65 (83) 100 98.2 09/02/18 00:00 Nasal Cannula 2.0 09/01/18 20:00 90 09/01/18 20:00 98.2 92 20 119/63 (81) 100 98.2 09/01/18 20:00 Nasal Cannula 2.0 09/01/18 16:00 Nasal Cannula 2.0 09/01/18 15:51 98.4 94 20 122/65 (84) 100 98.4 09/01/18 15:26 87 09/01/18 12:00 Nasal Cannula 2.0 09/01/18 12:00 98.1 88 18 111/59 (76) 100 98.1 Intake and Output 09/01/18 09/02/18 19:00 07:00 Intake Total 1705.166 ml 1150 ml Output Total 400 ml 450 ml Balance 1305.166 ml 700 ml Intake Oral 1080 ml 300 ml IV Total 625.166 ml 600 ml Blood Product 250 ml Output Urine Total 150 ml 200 ml Stool Total 250 ml 250 ml Laboratory Tests Test 09/02/18 04:00 White Blood Count 9.1 K/UL (4.8-10.8) Red Blood Count 2.41 M/UL (4.20-5.40) L Hemoglobin 7.5 G/DL (12.0-16.0) L Hematocrit 22.5 % (37.0-47.0) L Mean Corpuscular Volume 93 FL (80-99) Mean Corpuscular Hemoglobin 31.1 PG (27.0-31.0) H Mean Corpuscular Hemoglobin Concent 33.3 G/DL (32.0-36.0) Red Cell Distribution Width 17.0 % (11.6-14.8) H Platelet Count 80 K/UL (150-450) L Mean Platelet Volume 9.1 FL (6.5-10.1) Neutrophils (%) (Auto) % (45.0-75.0) Lymphocytes (%) (Auto) % (20.0-45.0) Monocytes (%) (Auto) % (1.0-10.0) Eosinophils (%) (Auto) % (0.0-3.0) Basophils (%) (Auto) % (0.0-2.0) Differential Total Cells Counted 100 Neutrophils % (Manual) 77 % (45-75) H Lymphocytes % (Manual) 13 % (20-45) L Monocytes % (Manual) 9 % (1-10) Eosinophils % (Manual) 1 % (0-3) Basophils % (Manual) 0 % (0-2) Band Neutrophils 0 % (0-8) Platelet Estimate Decreased L Platelet Morphology Normal Anisocytosis 1+ Prothrombin Time 14.8 SEC (9.30-11.50) H Prothromb Time International Ratio 1.4 (0.9-1.1) H Sodium Level 140 MMOL/L (136-145) Potassium Level 3.5 MMOL/L (3.5-5.1) Chloride Level 109 MMOL/L (98-107) H Carbon Dioxide Level 23 MMOL/L (21-32) Anion Gap 8 mmol/L (5-15) Blood Urea Nitrogen 37 mg/dL (7-18) H Creatinine 3.2 MG/DL (0.55-1.30) H Estimat Glomerular Filtration Rate 16.4 mL/min (>60) Glucose Level 117 MG/DL (74-106) H Calcium Level 8.3 MG/DL (8.5-10.1) L Ammonia 77 umol/L (11-32) H Height (Feet): 5 Height (Inches): 3.00 Weight (Pounds): 323 General Appearance: no apparent distress, alert, other - more alert/awake today Cardiovascular: normal rate Respiratory/Chest: normal breath sounds, no respiratory distress Abdominal Exam: normal bowel sounds, non tender, soft Extremities: non-tender Objective generalized edema Markus Lebron NP Sep 02, 2018 11:55
[2018-09-02 12:00] VITALS: BP 119/66
--- NOTE | 2018-09-02 12:58 | General Progress Note ---
Assessment/Plan Problem List: (1) Edema ICD Codes: R60.9 - Edema, unspecified SNOMED: 679455333, 516706712 (2) Anemia ICD Codes: D64.9 - Anemia, unspecified SNOMED: 291912017 (3) Alcoholic cirrhosis ICD Codes: K70.30 - Alcoholic cirrhosis of liver without ascites SNOMED: 359573688 (4) Esophageal varices ICD Codes: I85.00 - Esophageal varices without bleeding SNOMED: 00834160 (5) Leukocytosis ICD Codes: D72.829 - Elevated white blood cell count, unspecified SNOMED: 045071502, 516287905 (6) GI bleed ICD Codes: K92.2 - Gastrointestinal hemorrhage, unspecified SNOMED: 95161376 (7) LENI (acute kidney injury) ICD Codes: N17.9 - Acute kidney failure, unspecified SNOMED: 52382697 (8) Sepsis ICD Codes: A41.9 - Sepsis, unspecified organism SNOMED: 44208652 (9) Seizure ICD Codes: R56.9 - Unspecified convulsions SNOMED: 65609951 Assessment/Plan abx oe pulm tx transfuse prn gi heme f/u dialysis prn seizure control cbc bmp am promise ltach if clear Subjective Constitutional: Reports: weakness Allergies: Coded Allergies: LORAZEPAM (Verified Allergy, Unknown, 05/21/18) PENICILLINS (Verified Allergy, Unknown, 05/21/18) All Systems: reviewed and negative except above Subjective 02nc tired Objective Last 24 Hour Vital Signs Date Time Temp Pulse Resp B/P (MAP) Pulse Ox O2 Delivery O2 Flow Rate FiO2 09/02/18 12:00 98.8 93 18 119/66 (83) 100 98.8 09/02/18 09:21 98.1 09/02/18 08:51 98.1 09/02/18 08:00 92 09/02/18 08:00 Nasal Cannula 2.0 09/02/18 07:50 98.1 91 19 121/67 (85) 100 98.1 09/02/18 04:00 98.4 90 20 115/63 (80) 100 98.4 09/02/18 04:00 Nasal Cannula 2.0 09/02/18 04:00 95 09/02/18 00:00 87 09/02/18 00:00 98.2 90 20 120/65 (83) 100 98.2 09/02/18 00:00 Nasal Cannula 2.0 09/01/18 20:00 90 09/01/18 20:00 98.2 92 20 119/63 (81) 100 98.2 09/01/18 20:00 Nasal Cannula 2.0 09/01/18 16:00 Nasal Cannula 2.0 09/01/18 15:51 98.4 94 20 122/65 (84) 100 98.4 09/01/18 15:26 87 Intake and Output 09/01/18 09/02/18 19:00 07:00 Intake Total 1705.166 ml 1150 ml Output Total 400 ml 450 ml Balance 1305.166 ml 700 ml Intake Oral 1080 ml 300 ml IV Total 625.166 ml 600 ml Blood Product 250 ml Output Urine Total 150 ml 200 ml Stool Total 250 ml 250 ml Laboratory Tests 09/02/18 04:00: White Blood Count 9.1, Red Blood Count 2.41L, Hemoglobin 7.5L, Hematocrit 22.5L , Mean Corpuscular Volume 93, Mean Corpuscular Hemoglobin 31.1H, Mean Corpuscular Hemoglobin Concent 33.3, Red Cell Distribution Width 17.0H, Platelet Count 80L, Mean Platelet Volume 9.1, Neutrophils (%) (Auto) , Lymphocytes (%) (Auto) , Monocytes (%) (Auto) , Eosinophils (%) (Auto) , Basophils (%) (Auto) , Differential Total Cells Counted 100, Neutrophils % ( Manual) 77H, Lymphocytes % (Manual) 13L, Monocytes % (Manual) 9, Eosinophils % ( Manual) 1, Basophils % (Manual) 0, Band Neutrophils 0, Platelet Estimate DecreasedL, Platelet Morphology Normal, Anisocytosis 1+, Prothrombin Time 14.8H , Prothromb Time International Ratio 1.4H, Sodium Level 140, Potassium Level 3.5 , Chloride Level 109H, Carbon Dioxide Level 23, Anion Gap 8, Blood Urea Nitrogen 37H, Creatinine 3.2H, Estimat Glomerular Filtration Rate 16.4, Glucose Level 117H, Calcium Level 8.3L, Ammonia 77H Height (Feet): 5 Height (Inches): 3.00 Weight (Pounds): 323 General Appearance: lethargic EENT: normal ENT inspection Neck: normal alignment Cardiovascular: normal peripheral pulses, normal rate, regular rhythm Respiratory/Chest: chest wall non-tender, decreased breath sounds Abdomen: normal bowel sounds, non tender, soft Extremities: normal inspection Edema: 1+ Arm (L), 1+ Arm (R), 1+ Leg (L), 1+ Leg (R), 1+ Pedal (L), 1+ Pedal ( R), 1+ Generalized Edema: trace edema Neurologic: responsive, motor weakness Skin: normal pigmentation, warm/dry Chauncey Fuentes DO Sep 02, 2018 12:58
--- NOTE | 2018-09-02 15:51 | General Progress Note ---
Assessment/Plan Status: not improved Assessment/Plan # Thrombocytopenia. Baseline appears to be 50-80k. Is most likely related to underlying liver disease with e/o portal htn. Hx of ETOH use. She does have evidence of hepatic cirrhosis, with surface nodularity an increased echogenicity. Evidence of portal hypertension, with ascites, splenomegaly, and flow reversal within the main and right portal vein. Evidence of prior cholecystectomy. Negative for dilated ducts. Prior CT and Us have been reviewed , hepatitis and hiv are both negative. Currently the count is closer to 15-50k. --> Peripheral smear ordered and is negative for blasts --> Abx and other meds have been reviewed. --> hold off heparin, asa, or plavix --> Transfuse plts if plt count >10k or if 20k and with fever --> Agree with lactulose and potential rifaximin for elev ammonia --> PLT Tx: 08/31, # Coagulopathy is likely related to underlying liver disease, liver us shows "Evidence of chronic liver disease with enlarged fatty liver and stigmata of portal hypertension including hepatofugal portal venous flow." --> no evidence of bleeding hold off unless bleeding is noted --> VIt K or ffp before a procedure # Anemia due to gastrointestinal bleed. Hemoglobin on admission 5-8 range, likely bleed related, ferritin is 1125 --> Gastroenterology to evaluate and manage. --> was in the past on octreotide drip --> Hgb goal >7. Transfuse prn. --> 09/02: s/p EGD >> Esophageal varices, status post banding x7. # Anemia of chronic disease, multifactorial --> Previous w/u has been reviewed. --> Will trend CBC daily --> Hgb goal above 7 --> Blood tx: 08/17,08/18, 08/19, 08/23, 08/25, 08/29, 08/31, 09/01, 09/02, # Acute kidney injury secondary to intravascular volume depletion along with ischemic acute tubular necrosis from hypotension. --> Nephro following. Appreciate recs. # Hyperkalemia secondary to renal insufficiency and gastrointestinal bleed. --> The patient was given Kayexalate 60 g already. 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 Greatly appreciate consultation! Subjective Date patient seen: Sep 02, 2018 ROS Limited/Unobtainable: Yes Hematologic/Lymphatic: Reports: anemia Allergies: Coded Allergies: LORAZEPAM (Verified Allergy, Unknown, 05/21/18) PENICILLINS (Verified Allergy, Unknown, 05/21/18) Subjective S/P EGD >> Esophageal varices, status post banding x7. Hgb remains low at 7.5, blood tx ordered. Objective Last 24 Hour Vital Signs Date Time Temp Pulse Resp B/P (MAP) Pulse Ox O2 Delivery O2 Flow Rate FiO2 09/02/18 12:00 98.8 93 18 119/66 (83) 100 98.8 09/02/18 12:00 90 09/02/18 12:00 Nasal Cannula 2.0 09/02/18 09:21 98.1 09/02/18 08:51 98.1 09/02/18 08:00 92 09/02/18 08:00 Nasal Cannula 2.0 09/02/18 07:50 98.1 91 19 121/67 (85) 100 98.1 09/02/18 04:00 98.4 90 20 115/63 (80) 100 98.4 09/02/18 04:00 Nasal Cannula 2.0 09/02/18 04:00 95 09/02/18 00:00 87 09/02/18 00:00 98.2 90 20 120/65 (83) 100 98.2 09/02/18 00:00 Nasal Cannula 2.0 09/01/18 20:00 90 09/01/18 20:00 98.2 92 20 119/63 (81) 100 98.2 09/01/18 20:00 Nasal Cannula 2.0 09/01/18 16:00 Nasal Cannula 2.0 09/01/18 15:51 98.4 94 20 122/65 (84) 100 98.4 Intake and Output 09/01/18 09/02/18 19:00 07:00 Intake Total 1705.166 ml 1150 ml Output Total 400 ml 450 ml Balance 1305.166 ml 700 ml Intake Oral 1080 ml 300 ml IV Total 625.166 ml 600 ml Blood Product 250 ml Output Urine Total 150 ml 200 ml Stool Total 250 ml 250 ml Laboratory Tests 09/02/18 04:00: White Blood Count 9.1, Red Blood Count 2.41L, Hemoglobin 7.5L, Hematocrit 22.5L , Mean Corpuscular Volume 93, Mean Corpuscular Hemoglobin 31.1H, Mean Corpuscular Hemoglobin Concent 33.3, Red Cell Distribution Width 17.0H, Platelet Count 80L, Mean Platelet Volume 9.1, Neutrophils (%) (Auto) , Lymphocytes (%) (Auto) , Monocytes (%) (Auto) , Eosinophils (%) (Auto) , Basophils (%) (Auto) , Differential Total Cells Counted 100, Neutrophils % ( Manual) 77H, Lymphocytes % (Manual) 13L, Monocytes % (Manual) 9, Eosinophils % ( Manual) 1, Basophils % (Manual) 0, Band Neutrophils 0, Platelet Estimate DecreasedL, Platelet Morphology Normal, Anisocytosis 1+, Prothrombin Time 14.8H , Prothromb Time International Ratio 1.4H, Sodium Level 140, Potassium Level 3.5 , Chloride Level 109H, Carbon Dioxide Level 23, Anion Gap 8, Blood Urea Nitrogen 37H, Creatinine 3.2H, Estimat Glomerular Filtration Rate 16.4, Glucose Level 117H, Calcium Level 8.3L, Ammonia 77H Height (Feet): 5 Height (Inches): 3.00 Weight (Pounds): 323 General Appearance: no apparent distress EENT: PERRL/EOMI Neck: normal alignment Cardiovascular: normal peripheral pulses Respiratory/Chest: no respiratory distress Abdomen: soft Michael Hernandez MD Sep 02, 2018 15:51
[2018-09-02 16:00] VITALS: BP 134/62
[2018-09-02 20:00] VITALS: BP 128/82
[2018-09-02] MEDS ORDERED: Mylanta II UD 30ml ORAL PRN (20:27)
[2018-09-02] MEDS ORDERED: Octreotide Acetate 500 MCG in Sodium Chloride 500ML 499 ML IV SCH (20:37)
[2018-09-02] MEDS: Dyna-Hex 2% Top Sol 2oz TOPIC SCH (22:45)
[2018-09-03] VITALS: BP 123/60
[2018-09-03] MEDS: Lactulose 20gm/30ml UDC ORAL SCH ×6 (00:49→23:55)
[2018-09-03] MEDS: Morphine Sulfate 2mg/ml Inj IVP PRN ×4 (00:50→21:29)
[2018-09-03 04:00] VITALS: BP 119/86
[2018-09-03] MEDS: Octreotide Acetate 500 MCG in Sodium Chloride 500ML 499 ML IV SCH ×3 (04:13→22:19)
--- NOTE | 2018-09-03 06:28 | General Progress Note ---
Assessment/Plan Assessment/Plan # Thrombocytopenia. Baseline appears to be 50-80k. Is most likely related to underlying liver disease with e/o portal htn. Hx of ETOH use. She does have evidence of hepatic cirrhosis, with surface nodularity an increased echogenicity. Evidence of portal hypertension, with ascites, splenomegaly, and flow reversal within the main and right portal vein. Evidence of prior cholecystectomy. Negative for dilated ducts. Prior CT and Us have been reviewed , hepatitis and hiv are both negative. Currently the count is closer to 30-80k. --> Peripheral smear ordered and is negative for blasts --> Abx and other meds have been reviewed. --> hold off heparin, asa, or plavix --> Transfuse plts if plt count >10k or if 20k and with fever, or >50k if bleeding --> Agree with lactulose and potential rifaximin for elev ammonia --> PLT Tx: 08/31 # Coagulopathy is likely related to underlying liver disease, liver us shows "Evidence of chronic liver disease with enlarged fatty liver and stigmata of portal hypertension including hepatofugal portal venous flow." --> no evidence of bleeding hold off unless bleeding is noted --> VIt K or ffp before a procedure # Anemia due to gastrointestinal bleed. Hemoglobin on admission 5-8 range, likely bleed related, ferritin is 1125 --> Gastroenterology to evaluate and manage. --> Hgb goal >7. Transfuse prn. --> 09/02: s/p EGD >> Esophageal varices, status post banding x7. --> Appreciate gi recs # Anemia of chronic disease, multifactorial --> Previous w/u has been reviewed --> Will trend CBC daily --> Hgb goal above 7 --> Blood tx: 08/17,08/18, 08/19, 08/23, 08/25, 08/29, 08/31, 09/01, 09/02, # Acute kidney injury secondary to intravascular volume depletion along with ischemic acute tubular necrosis from hypotension. --> Nephro following. Appreciate recs. # Hyperkalemia secondary to renal insufficiency and gastrointestinal bleed. --> The patient was given Kayexalate 60 g already. 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 Subjective Constitutional: Denies: no symptoms, chills, diaphoresis, fever, malaise, weakness, other HEENT: Denies: no symptoms, eye pain, blurred vision, tearing, double vision, ear pain, ear discharge, nose pain, nose congestion, throat pain, throat swelling, mouth pain, mouth swelling, other Cardiovascular: Denies: no symptoms, chest pain, edema, irregular heart rate, lightheadedness, palpitations, syncope, other Respiratory: Denies: no symptoms, cough, orthopnea, shortness of breath, SOB with excertion, SOB at rest, sputum, stridor, wheezing, other Gastrointestinal/Abdominal: Denies: no symptoms, abdomen distended, abdominal pain, black stools, tarry stools, blood in stool, constipated, diarrhea, difficulty swallowing, nausea, poor appetite, poor fluid intake, rectal bleeding , vomiting, other Genitourinary: Denies: no symptoms, burning, discharge, frequency, flank pain, hematuria, incontinence, pain, urgency, other Neurologic/Psychiatric: Denies: no symptoms, anxiety, depressed, emotional problems, headache, numbness, paresthesia, pre-existing deficit, seizure, tingling, tremors, weakness, other Endocrine: Denies: no symptoms, excessive sweating, flushing, intolerance to cold, intolerance to heat, increased hunger, increased thirst, increased urine, unexplained weight gain, unexplained weight loss, other Allergies: Coded Allergies: LORAZEPAM (Verified Allergy, Unknown, 05/21/18) PENICILLINS (Verified Allergy, Unknown, 05/21/18) Subjective cbc reviewed from yesterday, today pending, doesn't want discharge Objective Last 24 Hour Vital Signs Date Time Temp Pulse Resp B/P (MAP) Pulse Ox O2 Delivery O2 Flow Rate FiO2 09/03/18 00:00 99.5 99 20 123/60 (81) 92 99.5 09/02/18 21:00 Room Air 09/02/18 20:00 99.3 97 20 128/82 (97) 95 99.3 09/02/18 16:00 Nasal Cannula 2.0 09/02/18 16:00 98.4 96 20 134/62 (86) 100 98.4 09/02/18 15:19 91 09/02/18 12:00 98.8 93 18 119/66 (83) 100 98.8 09/02/18 12:00 90 09/02/18 12:00 Nasal Cannula 2.0 09/02/18 09:21 98.1 09/02/18 08:51 98.1 09/02/18 08:00 92 09/02/18 08:00 Nasal Cannula 2.0 09/02/18 07:50 98.1 91 19 121/67 (85) 100 98.1 Intake and Output 09/02/18 09/03/18 19:00 07:00 Intake Total 976.666 ml Output Total 550 ml Balance 426.666 ml Intake Oral 480 ml IV Total 496.666 ml Output Urine Total 250 ml Stool Total 300 ml Height (Feet): 5 Height (Inches): 3.00 Weight (Pounds): 323 General Appearance: no apparent distress EENT: normal ENT inspection Neck: normal alignment Cardiovascular: regular rhythm Respiratory/Chest: chest wall non-tender Extremities: non-tender Edema: mild edema Neurologic: alert Skin: warm/dry Objective stahl, and rectal tube++ Michael Hernandez MD Sep 03, 2018 06:28
[2018-09-03 08:00] VITALS: BP 119/65
[2018-09-03 08:40] LABS: HEMATOCRIT 25.8 % (37.0-47.0); HEMOGLOBIN 8.5 G/DL (12.0-16.0); MEAN CORPUSCULAR VOLUME 92 FL (80-99); PLATELET COUNT 84 K/UL (150-450); RED BLOOD COUNT 2.79 M/UL (4.20-5.40); RED CELL DISTRIBUTION WIDTH 17.3 % (11.6-14.8); WHITE BLOOD COUNT 10.8 K/UL (4.8-10.8)
--- NOTE | 2018-09-03 09:01 | Nephrology Progress Note ---
Assessment/Plan Assessment/Plan 1. ESRD- multifact ATN ( hypotension/intravasc vol dep/?hepatorenal/Anemia) - Hold HD and monitor for renal recovery. AM labs pending - Decide on HD today once labs return 2. Hypok+- replace prn 3. 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 Edema- lasix prn 5. GI Bleed/Anemia- per GI mgmt - prn blood tx Hgb <7 Subjective Date patient seen: Sep 03, 2018 Time patient seen: 09:00 ROS Limited/Unobtainable: No Allergies: Coded Allergies: LORAZEPAM (Verified Allergy, Unknown, 05/21/18) PENICILLINS (Verified Allergy, Unknown, 05/21/18) Subjective Patient awake and coherent and feeling better Objective Last 24 Hour Vital Signs Date Time Temp Pulse Resp B/P (MAP) Pulse Ox O2 Delivery O2 Flow Rate FiO2 09/03/18 07:05 Nasal Cannula 2.0 28 09/03/18 07:05 98 Nasal Cannula 2.0 28 09/03/18 04:00 99.2 89 19 119/86 (97) 93 99.2 09/03/18 00:00 99.5 99 20 123/60 (81) 92 99.5 09/02/18 21:00 Room Air 09/02/18 20:00 99.3 97 20 128/82 (97) 95 99.3 09/02/18 16:00 Nasal Cannula 2.0 09/02/18 16:00 98.4 96 20 134/62 (86) 100 98.4 09/02/18 15:19 91 09/02/18 12:00 98.8 93 18 119/66 (83) 100 98.8 09/02/18 12:00 90 09/02/18 12:00 Nasal Cannula 2.0 09/02/18 09:21 98.1 Intake and Output 09/02/18 09/03/18 19:00 07:00 Intake Total 976.666 ml Output Total 550 ml 450 ml Balance 426.666 ml -450 ml Intake Oral 480 ml IV Total 496.666 ml Output Urine Total 250 ml 450 ml Stool Total 300 ml Laboratory Tests 09/03/18 08:00: White Blood Count 10.8, Red Blood Count 2.79L, Hemoglobin 8.5L, Hematocrit 25.8L , Mean Corpuscular Volume 92, Mean Corpuscular Hemoglobin 30.4, Mean Corpuscular Hemoglobin Concent 32.9, Red Cell Distribution Width 17.3H, Platelet Count 84L, Mean Platelet Volume 9.1, Neutrophils (%) (Auto) , Lymphocytes (%) (Auto) , Monocytes (%) (Auto) , Eosinophils (%) (Auto) , Basophils (%) (Auto) , Neutrophils % (Manual) [Pending], Lymphocytes % (Manual) [Pending], Platelet Estimate [Pending], Platelet Morphology [Pending], Sodium Level [Pending], Potassium Level [Pending], Chloride Level [Pending], Carbon Dioxide Level [Pending], Blood Urea Nitrogen [Pending], Creatinine [Pending], Estimat Glomerular Filtration Rate [Pending], Glucose Level [Pending], Calcium Level [Pending], Total Bilirubin [Pending], Aspartate Amino Transf (AST/SGOT) [ Pending], Alanine Aminotransferase (ALT/SGPT) [Pending], Alkaline Phosphatase [ Pending], Total Protein [Pending], Albumin [Pending], Globulin [Pending] Height (Feet): 5 Height (Inches): 3.00 Weight (Pounds): 350 General Appearance: no apparent distress, alert EENT: normal ENT inspection Neck: normal alignment, supple Cardiovascular: normal rate, regular rhythm Respiratory/Chest: lungs clear, normal breath sounds Abdomen: non tender, soft Edema: 2+ Arm (L), 2+ Arm (R), 2+ Leg (L), 2+ Leg (R), 2+ Pedal (L), 2+ Pedal ( R), 2+ Generalized Amos Pinon MD Sep 03, 2018 09:01
[2018-09-03 09:12] LABS: ALANINE AMINOTRANSFERASE 25 U/L (12-78); ALBUMIN 1.6 G/DL (3.4-5.0); ALBUMIN/GLOBULIN RATIO 0.4 (1.0-2.7); ALKALINE PHOSPHATASE 153 U/L (46-116); ANION GAP 9 mmol/L (5-15); ASPARTATE AMINO TRANSFERASE 61 U/L (15-37); BILIRUBIN,TOTAL 2.5 MG/DL (0.2-1.0); BLOOD UREA NITROGEN 39 mg/dL (7-18); CALCIUM 8.2 MG/DL (8.5-10.1); CARBON DIOXIDE 22 MMOL/L (21-32); CHLORIDE 106 MMOL/L (98-107); POTASSIUM 3.6 MMOL/L (3.5-5.1); SODIUM 137 MMOL/L (136-145)
[2018-09-03 09:15] LABS: BILIRUBIN,DIRECT 1.6 MG/DL (0.0-0.3)
[2018-09-03] MEDS: Pantoprazole Inj IVP SCH (09:42)
--- NOTE | 2018-09-03 10:50 | Pulmonology Progress Note ---
Assessment/Plan Problems: (1) Acute encephalopathy (2) LENI (acute kidney injury) (3) ATN (acute tubular necrosis) (4) Coagulopathy (5) Esophageal varices (6) Alcoholic cirrhosis (7) End stage liver disease Assessment/Plan pt wants to go home, pending outpatient HD set-up supportive care more awake, eating on Lactulose check ammonia level on abx check h/h, fever resolved Subjective ROS Limited/Unobtainable: No Interval Events: doing better Allergies: Coded Allergies: LORAZEPAM (Verified Allergy, Unknown, 05/21/18) PENICILLINS (Verified Allergy, Unknown, 05/21/18) Objective Last 24 Hour Vital Signs Date Time Temp Pulse Resp B/P (MAP) Pulse Ox O2 Delivery O2 Flow Rate FiO2 09/03/18 10:13 99.2 09/03/18 09:43 99.2 09/03/18 09:00 Room Air 09/03/18 08:00 98.4 100 19 119/65 (83) 94 98.4 09/03/18 07:05 Nasal Cannula 2.0 28 09/03/18 07:05 98 Nasal Cannula 2.0 28 09/03/18 04:00 99.2 89 19 119/86 (97) 93 99.2 09/03/18 00:00 99.5 99 20 123/60 (81) 92 99.5 09/02/18 21:00 Room Air 09/02/18 20:00 99.3 97 20 128/82 (97) 95 99.3 09/02/18 16:00 Nasal Cannula 2.0 09/02/18 16:00 98.4 96 20 134/62 (86) 100 98.4 09/02/18 15:19 91 09/02/18 12:00 98.8 93 18 119/66 (83) 100 98.8 09/02/18 12:00 90 09/02/18 12:00 Nasal Cannula 2.0 Intake and Output 09/02/18 09/03/18 19:00 07:00 Intake Total 976.666 ml Output Total 550 ml 450 ml Balance 426.666 ml -450 ml Intake Oral 480 ml IV Total 496.666 ml Output Urine Total 250 ml 450 ml Stool Total 300 ml General Appearance: WD/WN HEENT: normocephalic, anicteric Respiratory/Chest: chest wall non-tender, lungs clear Breasts: no masses Cardiovascular: normal peripheral pulses, normal rate Abdomen: normal bowel sounds Genitourinary: normal external genitalia 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 Lymphatic: no neck adenopathy Laboratory Tests 09/03/18 08:00: White Blood Count 10.8, Red Blood Count 2.79L, Hemoglobin 8.5L, Hematocrit 25.8L , Mean Corpuscular Volume 92, Mean Corpuscular Hemoglobin 30.4, Mean Corpuscular Hemoglobin Concent 32.9, Red Cell Distribution Width 17.3H, Platelet Count 84L, Mean Platelet Volume 9.1, Neutrophils (%) (Auto) , Lymphocytes (%) (Auto) , Monocytes (%) (Auto) , Eosinophils (%) (Auto) , Basophils (%) (Auto) , Differential Total Cells Counted 100, Neutrophils % ( Manual) 72, Lymphocytes % (Manual) 19L, Monocytes % (Manual) 6, Eosinophils % ( Manual) 2, Basophils % (Manual) 1, Band Neutrophils 0, Platelet Estimate DecreasedL, Platelet Morphology Normal, Hypochromasia 2+, Anisocytosis 1+, Spherocytes 1+, Sodium Level 137, Potassium Level 3.6, Chloride Level 106, Carbon Dioxide Level 22, Anion Gap 9, Blood Urea Nitrogen 39H, Creatinine 3.0H, Estimat Glomerular Filtration Rate 17.7, Glucose Level 131H, Calcium Level 8.2L , Total Bilirubin 2.5H, Direct Bilirubin 1.6H, Aspartate Amino Transf (AST/SGOT ) 61H, Alanine Aminotransferase (ALT/SGPT) 25, Alkaline Phosphatase 153H, Total Protein 6.1L, Albumin 1.6L, Globulin 4.5, Albumin/Globulin Ratio 0.4L Current Medications Medications (Trade) Dose Ordered Sig/Abner Route PRN Reason Start Time Stop Time Status Last Admin Dose Admin Al Hydroxide/Mg Hydroxide (Mylanta II) 30 ml Q6H PRN ORAL dyspepsia 09/02/18 20:27 09/27/18 20:26 Chlorhexidine Gluconate (Sierra-Hex 2%) 1 applic DAILY@1999 TOPIC 09/02/18 20:00 09/18/18 19:59 09/02/18 22:45 Dextrose (Dextrose 50%) 25 ml Q30M PRN IV Hypoglycemia 09/02/18 20:28 09/23/18 20:27 Dextrose (Dextrose 50%) 50 ml Q30M PRN IV Hypoglycemia 09/02/18 20:28 09/16/18 20:27 Lactulose (Cephulac) 30 gm EVERY 6 HOURS ORAL 09/03/18 00:00 09/16/18 11:59 Morphine Sulfate (Morphine Sulfate) 2 mg Q4H PRN IVP For Pain 09/02/18 20:29 09/06/18 20:28 09/03/18 09:43 Octreotide Acetate 500 mcg/ Sodium Chloride 500 ml @ 50 mls/hr Q10H IV 09/03/18 02:00 10/03/18 01:59 09/03/18 04:13 Ondansetron HCl (Zofran) 4 mg Q6H PRN IVP Nausea & Vomiting 09/02/18 20:28 09/27/18 20:27 Pantoprazole (Protonix) 40 mg DAILY IVP 09/03/18 09:00 09/24/18 05:59 09/03/18 09:42 Rifaximin (Xifaxan) 550 mg EVERY 12 HOURS ORAL 09/02/18 21:00 09/05/18 08:59 09/03/18 09:42 Jose Roberto Burleson MD Sep 03, 2018 10:50
[2018-09-03 12:00] VITALS: BP 115/62
--- NOTE | 2018-09-03 13:10 | GI Progress Note ---
Assessment/Plan Problems: (1) Ascites ICD Codes: R18.8 - Other ascites SNOMED: 625133894 (2) Alcoholic cirrhosis ICD Codes: K70.30 - Alcoholic cirrhosis of liver without ascites SNOMED: 259286080 (3) Esophageal varices ICD Codes: I85.00 - Esophageal varices without bleeding SNOMED: 53119372 (4) Anemia ICD Codes: D64.9 - Anemia, unspecified SNOMED: 266979510 (5) Chronic renal insufficiency ICD Codes: N18.9 - Chronic kidney disease, unspecified SNOMED: 579437726 (6) Coagulopathy ICD Codes: D68.9 - Coagulation defect, unspecified SNOMED: 88516768 (7) Hemorrhagic shock ICD Codes: R57.8 - Other shock SNOMED: 329740 (8) GI bleed ICD Codes: K92.2 - Gastrointestinal hemorrhage, unspecified SNOMED: 33089294 Status: progressing Status Narrative Discussed with Dr. Rodriguez. Assessment/Plan s/p EGD >> Esophageal varices, status post banding x7. more awake and alert, ST evaluation >> passed RECOMMENDATIONS: on renal diet, tolerating ppi BID transfuse prn lactulose + Xifaxan very poor prognosis portal HTN management with propranolol fu labs The patient was seen and examined at bedside and all new and available data was reviewed in the patients chart. I agree with the above findings, impression and plan. (Patient seen earlier today. Signature stamp does not reflect patient encounter time.). - Christopher Rodriguez MD Subjective Subjective abdominal pain fatigue Objective Last 24 Hour Vital Signs Date Time Temp Pulse Resp B/P (MAP) Pulse Ox O2 Delivery O2 Flow Rate FiO2 09/03/18 12:00 96.6 100 19 115/62 (79) 100 96.6 09/03/18 10:13 99.2 09/03/18 09:43 99.2 09/03/18 09:00 Room Air 09/03/18 08:00 98.4 100 19 119/65 (83) 94 98.4 09/03/18 07:05 Nasal Cannula 2.0 28 09/03/18 07:05 98 Nasal Cannula 2.0 28 09/03/18 04:00 99.2 89 19 119/86 (97) 93 99.2 09/03/18 00:00 99.5 99 20 123/60 (81) 92 99.5 09/02/18 21:00 Room Air 09/02/18 20:00 99.3 97 20 128/82 (97) 95 99.3 09/02/18 16:00 Nasal Cannula 2.0 09/02/18 16:00 98.4 96 20 134/62 (86) 100 98.4 09/02/18 15:19 91 Intake and Output 09/02/18 09/03/18 19:00 07:00 Intake Total 976.666 ml Output Total 550 ml 450 ml Balance 426.666 ml -450 ml Intake Oral 480 ml IV Total 496.666 ml Output Urine Total 250 ml 450 ml Stool Total 300 ml Laboratory Tests Test 09/03/18 08:00 White Blood Count 10.8 K/UL (4.8-10.8) Red Blood Count 2.79 M/UL (4.20-5.40) L Hemoglobin 8.5 G/DL (12.0-16.0) L Hematocrit 25.8 % (37.0-47.0) L Mean Corpuscular Volume 92 FL (80-99) Mean Corpuscular Hemoglobin 30.4 PG (27.0-31.0) Mean Corpuscular Hemoglobin Concent 32.9 G/DL (32.0-36.0) Red Cell Distribution Width 17.3 % (11.6-14.8) H Platelet Count 84 K/UL (150-450) L Mean Platelet Volume 9.1 FL (6.5-10.1) Neutrophils (%) (Auto) % (45.0-75.0) Lymphocytes (%) (Auto) % (20.0-45.0) Monocytes (%) (Auto) % (1.0-10.0) Eosinophils (%) (Auto) % (0.0-3.0) Basophils (%) (Auto) % (0.0-2.0) Differential Total Cells Counted 100 Neutrophils % (Manual) 72 % (45-75) Lymphocytes % (Manual) 19 % (20-45) L Monocytes % (Manual) 6 % (1-10) Eosinophils % (Manual) 2 % (0-3) Basophils % (Manual) 1 % (0-2) Band Neutrophils 0 % (0-8) Platelet Estimate Decreased L Platelet Morphology Normal Hypochromasia 2+ Anisocytosis 1+ Spherocytes 1+ Sodium Level 137 MMOL/L (136-145) Potassium Level 3.6 MMOL/L (3.5-5.1) Chloride Level 106 MMOL/L (98-107) Carbon Dioxide Level 22 MMOL/L (21-32) Anion Gap 9 mmol/L (5-15) Blood Urea Nitrogen 39 mg/dL (7-18) H Creatinine 3.0 MG/DL (0.55-1.30) H Estimat Glomerular Filtration Rate 17.7 mL/min (>60) Glucose Level 131 MG/DL (74-106) H Calcium Level 8.2 MG/DL (8.5-10.1) L Total Bilirubin 2.5 MG/DL (0.2-1.0) H Direct Bilirubin 1.6 MG/DL (0.0-0.3) H Aspartate Amino Transf (AST/SGOT) 61 U/L (15-37) H Alanine Aminotransferase (ALT/SGPT) 25 U/L (12-78) Alkaline Phosphatase 153 U/L (46-116) H Total Protein 6.1 G/DL (6.4-8.2) L Albumin 1.6 G/DL (3.4-5.0) L Globulin 4.5 g/dL Albumin/Globulin Ratio 0.4 (1.0-2.7) L Height (Feet): 5 Height (Inches): 3.00 Weight (Pounds): 350 General Appearance: WD/WN, no apparent distress, alert Cardiovascular: normal rate Respiratory/Chest: normal breath sounds, no respiratory distress Abdominal Exam: normal bowel sounds, non tender, soft Objective generalized edema Markus Lebron [employer] TE[employer] Sep 03, 2018 13:10
--- NOTE | 2018-09-03 13:29 | General Progress Note ---
Assessment/Plan Problem List: (1) Edema ICD Codes: R60.9 - Edema, unspecified SNOMED: 894295181, 538013436 (2) Anemia ICD Codes: D64.9 - Anemia, unspecified SNOMED: 513641919 (3) Alcoholic cirrhosis ICD Codes: K70.30 - Alcoholic cirrhosis of liver without ascites SNOMED: 762478902 (4) Esophageal varices ICD Codes: I85.00 - Esophageal varices without bleeding SNOMED: 14395913 (5) Leukocytosis ICD Codes: D72.829 - Elevated white blood cell count, unspecified SNOMED: 043190977, 781095920 (6) GI bleed ICD Codes: K92.2 - Gastrointestinal hemorrhage, unspecified SNOMED: 43087549 (7) LENI (acute kidney injury) ICD Codes: N17.9 - Acute kidney failure, unspecified SNOMED: 29252071 (8) Sepsis ICD Codes: A41.9 - Sepsis, unspecified organism SNOMED: 50752309 (9) Seizure ICD Codes: R56.9 - Unspecified convulsions SNOMED: 29057321 Status: stable, progressing Assessment/Plan abx oe pulm tx transfuse prn gi heme f/u dialysis prn seizure control cbc bmp am promise ltach if clear Subjective Constitutional: Reports: weakness Allergies: Coded Allergies: LORAZEPAM (Verified Allergy, Unknown, 05/21/18) PENICILLINS (Verified Allergy, Unknown, 05/21/18) All Systems: reviewed and negative except above Subjective 02nc tired Objective Last 24 Hour Vital Signs Date Time Temp Pulse Resp B/P (MAP) Pulse Ox O2 Delivery O2 Flow Rate FiO2 09/03/18 12:00 96.6 100 19 115/62 (79) 100 96.6 09/03/18 10:13 99.2 09/03/18 09:43 99.2 09/03/18 09:00 Room Air 09/03/18 08:00 98.4 100 19 119/65 (83) 94 98.4 09/03/18 07:05 Nasal Cannula 2.0 28 09/03/18 07:05 98 Nasal Cannula 2.0 28 09/03/18 04:00 99.2 89 19 119/86 (97) 93 99.2 09/03/18 00:00 99.5 99 20 123/60 (81) 92 99.5 10/22/18 21:00 Room Air 09/02/18 20:00 99.3 97 20 128/82 (97) 95 99.3 09/02/18 16:00 Nasal Cannula 2.0 09/02/18 16:00 98.4 96 20 134/62 (86) 100 98.4 09/02/18 15:19 91 Intake and Output 09/02/18 09/03/18 19:00 07:00 Intake Total 976.666 ml Output Total 550 ml 450 ml Balance 426.666 ml -450 ml Intake Oral 480 ml IV Total 496.666 ml Output Urine Total 250 ml 450 ml Stool Total 300 ml Laboratory Tests 09/03/18 08:00: White Blood Count 10.8, Red Blood Count 2.79L, Hemoglobin 8.5L, Hematocrit 25.8L , Mean Corpuscular Volume 92, Mean Corpuscular Hemoglobin 30.4, Mean Corpuscular Hemoglobin Concent 32.9, Red Cell Distribution Width 17.3H, Platelet Count 84L, Mean Platelet Volume 9.1, Neutrophils (%) (Auto) , Lymphocytes (%) (Auto) , Monocytes (%) (Auto) , Eosinophils (%) (Auto) , Basophils (%) (Auto) , Differential Total Cells Counted 100, Neutrophils % ( Manual) 72, Lymphocytes % (Manual) 19L, Monocytes % (Manual) 6, Eosinophils % ( Manual) 2, Basophils % (Manual) 1, Band Neutrophils 0, Platelet Estimate DecreasedL, Platelet Morphology Normal, Hypochromasia 2+, Anisocytosis 1+, Spherocytes 1+, Sodium Level 137, Potassium Level 3.6, Chloride Level 106, Carbon Dioxide Level 22, Anion Gap 9, Blood Urea Nitrogen 39H, Creatinine 3.0H, Estimat Glomerular Filtration Rate 17.7, Glucose Level 131H, Calcium Level 8.2L , Total Bilirubin 2.5H, Direct Bilirubin 1.6H, Aspartate Amino Transf (AST/SGOT ) 61H, Alanine Aminotransferase (ALT/SGPT) 25, Alkaline Phosphatase 153H, Total Protein 6.1L, Albumin 1.6L, Globulin 4.5, Albumin/Globulin Ratio 0.4L Height (Feet): 5 Height (Inches): 3.00 Weight (Pounds): 350 General Appearance: lethargic EENT: normal ENT inspection Neck: normal alignment Cardiovascular: normal peripheral pulses, normal rate, regular rhythm Respiratory/Chest: chest wall non-tender, lungs clear, normal breath sounds Extremities: normal inspection Edema: 1+ Arm (L), 1+ Arm (R), 1+ Leg (L), 1+ Leg (R), 1+ Pedal (L), 1+ Pedal ( R), 1+ Generalized Edema: trace edema Neurologic: motor weakness Skin: normal pigmentation, warm/dry Chauncey Fuentes DO Sep 03, 2018 13:29
--- NOTE | 2018-09-03 14:38 | Infectious Diseases Prog Note ---
Assessment/Plan Assessment/Plan Assessment/Plan The patient is a 38-year-old female with: Fever, Sp Probable sepsis, SP -Bcx neg Leukocytosis; SP -CXR: Pulmonary vascular congestion with increased interstitial markings , likely representing interstitial edema. This appears improved relative to the chest x-ray from 07/22/18 Urinary tract infection, s/p Rx Rpt 09/02 sp UCx: GNR : Colonizer u/a wbc 60-80, nit+, leuk large; ucx ESBL K. pna ( R zosyn, S ertapenem), Citrobacter freundi (R ancef, I Impienem, S ertapenem) History of hepatitis panel and HIV serology negative. GIB -s/p EGD 08/19: esophageal varices Seizures episodes 08/24 (?related to carbapenem) Acute renal insufficiency.; on HD -Renal US: unremarkable Thrombocytopenia S/p permacath placement 08/30,now w/ bleeding from site Encephalopathy, multifactorial, ongoin -. Alcoholic cirrhosis -. Esophageal varices PLAN: -Continue to monitor off abx , will start pt on emperic AB Rx if more episodes of fever -08/25 SP Ertapenem #7 -08/19 SP cefepime and Flagyl #3 -. Monitor BMP -.Renal, GI f/u -seizure precautions -aspiration precautions - Blood and Urine Cx Subjective Allergies: Coded Allergies: LORAZEPAM (Verified Allergy, Unknown, 05/21/18) PENICILLINS (Verified Allergy, Unknown, 05/21/18) Subjective Diarrhea lactose on hold Objective Vital Signs Last 24 Hour Vital Signs Date Time Temp Pulse Resp B/P (MAP) Pulse Ox O2 Delivery O2 Flow Rate FiO2 09/03/18 12:00 96.6 100 19 115/62 (79) 100 96.6 09/03/18 10:13 99.2 09/03/18 09:43 99.2 09/03/18 09:00 Room Air 09/03/18 08:00 98.4 100 19 119/65 (83) 94 98.4 09/03/18 07:05 Nasal Cannula 2.0 28 09/03/18 07:05 98 Nasal Cannula 2.0 28 09/03/18 04:00 99.2 89 19 119/86 (97) 93 99.2 09/03/18 00:00 99.5 99 20 123/60 (81) 92 99.5 09/02/18 21:00 Room Air 09/02/18 20:00 99.3 97 20 128/82 (97) 95 99.3 09/02/18 16:00 Nasal Cannula 2.0 09/02/18 16:00 98.4 96 20 134/62 (86) 100 98.4 09/02/18 15:19 91 Height (Feet): 5 Height (Inches): 3.00 Weight (Pounds): 350 HEENT: mucous membranes moist Respiratory/Chest: normal breath sounds Cardiovascular: regularly irregular Abdomen: non distended Microbiology Date/Time Source Procedure Growth Status 09/02/18 12:15 Urine,Clean Catch Urine Culture - Preliminary Gram Negative Bacillus 1 Resulted Laboratory Tests Test 09/03/18 08:00 White Blood Count 10.8 K/UL (4.8-10.8) Red Blood Count 2.79 M/UL (4.20-5.40) L Hemoglobin 8.5 G/DL (12.0-16.0) L Hematocrit 25.8 % (37.0-47.0) L Mean Corpuscular Volume 92 FL (80-99) Mean Corpuscular Hemoglobin 30.4 PG (27.0-31.0) Mean Corpuscular Hemoglobin Concent 32.9 G/DL (32.0-36.0) Red Cell Distribution Width 17.3 % (11.6-14.8) H Platelet Count 84 K/UL (150-450) L Mean Platelet Volume 9.1 FL (6.5-10.1) Neutrophils (%) (Auto) % (45.0-75.0) Lymphocytes (%) (Auto) % (20.0-45.0) Monocytes (%) (Auto) % (1.0-10.0) Eosinophils (%) (Auto) % (0.0-3.0) Basophils (%) (Auto) % (0.0-2.0) Differential Total Cells Counted 100 Neutrophils % (Manual) 72 % (45-75) Lymphocytes % (Manual) 19 % (20-45) L Monocytes % (Manual) 6 % (1-10) Eosinophils % (Manual) 2 % (0-3) Basophils % (Manual) 1 % (0-2) Band Neutrophils 0 % (0-8) Platelet Estimate Decreased L Platelet Morphology Normal Hypochromasia 2+ Anisocytosis 1+ Spherocytes 1+ Sodium Level 137 MMOL/L (136-145) Potassium Level 3.6 MMOL/L (3.5-5.1) Chloride Level 106 MMOL/L (98-107) Carbon Dioxide Level 22 MMOL/L (21-32) Anion Gap 9 mmol/L (5-15) Blood Urea Nitrogen 39 mg/dL (7-18) H Creatinine 3.0 MG/DL (0.55-1.30) H Estimat Glomerular Filtration Rate 17.7 mL/min (>60) Glucose Level 131 MG/DL (74-106) H Calcium Level 8.2 MG/DL (8.5-10.1) L Total Bilirubin 2.5 MG/DL (0.2-1.0) H Direct Bilirubin 1.6 MG/DL (0.0-0.3) H Aspartate Amino Transf (AST/SGOT) 61 U/L (15-37) H Alanine Aminotransferase (ALT/SGPT) 25 U/L (12-78) Alkaline Phosphatase 153 U/L (46-116) H Total Protein 6.1 G/DL (6.4-8.2) L Albumin 1.6 G/DL (3.4-5.0) L Globulin 4.5 g/dL Albumin/Globulin Ratio 0.4 (1.0-2.7) L Current Medications Medications (Trade) Dose Ordered Sig/Abner Route PRN Reason Start Time Stop Time Status Last Admin Dose Admin Al Hydroxide/Mg Hydroxide (Mylanta II) 30 ml Q6H PRN ORAL dyspepsia 09/02/18 20:27 09/27/18 20:26 Chlorhexidine Gluconate (Sierra-Hex 2%) 1 applic DAILY@1999 TOPIC 09/02/18 20:00 09/18/18 19:59 09/02/18 22:45 Dextrose (Dextrose 50%) 25 ml Q30M PRN IV Hypoglycemia 09/02/18 20:28 09/23/18 20:27 Dextrose (Dextrose 50%) 50 ml Q30M PRN IV Hypoglycemia 09/02/18 20:28 09/16/18 20:27 Lactulose (Cephulac) 30 gm EVERY 6 HOURS ORAL 09/03/18 00:00 09/16/18 11:59 Morphine Sulfate (Morphine Sulfate) 2 mg Q4H PRN IVP For Pain 09/02/18 20:29 09/06/18 20:28 09/03/18 09:43 Octreotide Acetate 500 mcg/ Sodium Chloride 500 ml @ 50 mls/hr Q10H IV 09/03/18 02:00 10/03/18 01:59 09/03/18 13:08 Ondansetron HCl (Zofran) 4 mg Q6H PRN IVP Nausea & Vomiting 09/02/18 20:28 09/27/18 20:27 Pantoprazole (Protonix) 40 mg DAILY IVP 09/03/18 09:00 09/24/18 05:59 09/03/18 09:42 Rifaximin (Xifaxan) 550 mg EVERY 12 HOURS ORAL 09/02/18 21:00 09/05/18 08:59 09/03/18 09:42 Laz Monroy MD Sep 03, 2018 14:38
[2018-09-03 16:00] VITALS: BP 128/63
[2018-09-03] MEDS ORDERED: Vancomycin 1gm/D5W 275ml IVPB SCH ×2 (18:00)
[2018-09-03] MEDS ORDERED: Tubing IV Secondary IV ONE (18:24)
[2018-09-03] MEDS ORDERED: Tubing Blood Filter IV ONE (18:24)
[2018-09-03] MEDS ORDERED: NS 275ml ONE (18:24)
[2018-09-03] MEDS: Dyna-Hex 2% Top Sol 2oz TOPIC SCH (20:03)
[2018-09-03] MEDS: cefTRIAXone 1gm/D5W 55ml IVPB SCH ×2 (20:03)
[2018-09-03 20:16] VITALS: BP 144/59
[2018-09-04 04:17] VITALS: BP 100/54
[2018-09-04] MEDS: Lactulose 20gm/30ml UDC ORAL SCH ×4 (05:40→23:56)
[2018-09-04 06:43] LABS: HEMATOCRIT 24.5 % (37.0-47.0); MEAN CORPUSCULAR VOLUME 94 FL (80-99); PLATELET COUNT 89 K/UL (150-450); RED BLOOD COUNT 2.61 M/UL (4.20-5.40); RED CELL DISTRIBUTION WIDTH 17.7 % (11.6-14.8); WHITE BLOOD COUNT 9.8 K/UL (4.8-10.8)
[2018-09-04 07:11] LABS: ANION GAP 11 mmol/L (5-15); BLOOD UREA NITROGEN 42 mg/dL (7-18); CALCIUM 8.3 MG/DL (8.5-10.1); CARBON DIOXIDE 21 MMOL/L (21-32); CHLORIDE 105 MMOL/L (98-107); CREATININE 3.2 MG/DL (0.55-1.30); POTASSIUM 3.8 MMOL/L (3.5-5.1); SODIUM 137 MMOL/L (136-145)
[2018-09-04 08:00] VITALS: BP 105/57
[2018-09-04] MEDS ORDERED: Vancomycin 1gm/D5W 275ml IVPB ONE ×2 (09:00)
[2018-09-04] MEDS: Octreotide Acetate 500 MCG in Sodium Chloride 500ML 499 ML IV SCH (09:03)
[2018-09-04] MEDS: Pantoprazole Inj IVP SCH (09:12)
[2018-09-04] MEDS: Morphine Sulfate 2mg/ml Inj IVP PRN ×2 (09:27→20:46)
--- NOTE | 2018-09-04 10:57 | GI Progress Note ---
Assessment/Plan Problems: (1) Ascites ICD Codes: R18.8 - Other ascites SNOMED: 758906620 (2) Alcoholic cirrhosis ICD Codes: K70.30 - Alcoholic cirrhosis of liver without ascites SNOMED: 385236268 (3) Esophageal varices ICD Codes: I85.00 - Esophageal varices without bleeding SNOMED: 01691731 (4) Anemia ICD Codes: D64.9 - Anemia, unspecified SNOMED: 487578626 (5) Chronic renal insufficiency ICD Codes: N18.9 - Chronic kidney disease, unspecified SNOMED: 174623809 (6) Coagulopathy ICD Codes: D68.9 - Coagulation defect, unspecified SNOMED: 77883097 (7) Hemorrhagic shock ICD Codes: R57.8 - Other shock SNOMED: 704061 (8) GI bleed ICD Codes: K92.2 - Gastrointestinal hemorrhage, unspecified SNOMED: 73873982 Status: stable Status Narrative Discussed with Dr. Rodriguez. Assessment/Plan s/p EGD >> Esophageal varices, status post banding x7. more awake and alert, ST evaluation >> passed RECOMMENDATIONS: on renal diet, tolerating ppi BID transfuse prn lactulose + Xifaxan very poor prognosis portal HTN management with propranolol fu labs The patient was seen and examined at bedside and all new and available data was reviewed in the patients chart. I agree with the above findings, impression and plan. (Patient seen earlier today. Signature stamp does not reflect patient encounter time.). - Christopher Rodriguez MD Subjective Subjective abdominal pain fatigue Objective Last 24 Hour Vital Signs Date Time Temp Pulse Resp B/P (MAP) Pulse Ox O2 Delivery O2 Flow Rate FiO2 09/04/18 09:00 Room Air 09/04/18 08:00 98.7 92 18 105/57 (73) 96 98.7 09/04/18 05:15 98.3 09/04/18 04:17 98.3 92 18 100/54 (69) 92 98.3 09/03/18 21:28 101.4 09/03/18 20:22 Room Air 09/03/18 20:16 101.4 98 18 144/59 (87) 96 101.4 09/03/18 17:25 101.4 09/03/18 16:00 101.4 104 19 128/63 (84) 94 101.4 09/03/18 12:00 96.6 100 19 115/62 (79) 100 96.6 Intake and Output 09/03/18 09/04/18 19:00 07:00 Intake Total 663.708 ml 1016.292 ml Output Total 500 ml 1100 ml Balance 163.708 ml -83.708 ml Intake Oral 480 ml 420 ml IV Total 183.708 ml 596.292 ml Output Urine Total 500 ml 600 ml Stool Total 500 ml Laboratory Tests Test 09/04/18 04:30 White Blood Count 9.8 K/UL (4.8-10.8) Red Blood Count 2.61 M/UL (4.20-5.40) L Hemoglobin 8.0 G/DL (12.0-16.0) L Hematocrit 24.5 % (37.0-47.0) L Mean Corpuscular Volume 94 FL (80-99) Mean Corpuscular Hemoglobin 30.6 PG (27.0-31.0) Mean Corpuscular Hemoglobin Concent 32.6 G/DL (32.0-36.0) Red Cell Distribution Width 17.7 % (11.6-14.8) H Platelet Count 89 K/UL (150-450) L Mean Platelet Volume 8.5 FL (6.5-10.1) Neutrophils (%) (Auto) % (45.0-75.0) Lymphocytes (%) (Auto) % (20.0-45.0) Monocytes (%) (Auto) % (1.0-10.0) Eosinophils (%) (Auto) % (0.0-3.0) Basophils (%) (Auto) % (0.0-2.0) Differential Total Cells Counted 100 Neutrophils % (Manual) 70 % (45-75) Lymphocytes % (Manual) 17 % (20-45) L Monocytes % (Manual) 10 % (1-10) Eosinophils % (Manual) 2 % (0-3) Basophils % (Manual) 1 % (0-2) Band Neutrophils 0 % (0-8) Platelet Estimate Decreased L Platelet Morphology Normal Hypochromasia 2+ Anisocytosis 1+ Spherocytes 1+ Sodium Level 137 MMOL/L (136-145) Potassium Level 3.8 MMOL/L (3.5-5.1) Chloride Level 105 MMOL/L (98-107) Carbon Dioxide Level 21 MMOL/L (21-32) Anion Gap 11 mmol/L (5-15) Blood Urea Nitrogen 42 mg/dL (7-18) H Creatinine 3.2 MG/DL (0.55-1.30) H Estimat Glomerular Filtration Rate 16.4 mL/min (>60) Glucose Level 102 MG/DL (74-106) Calcium Level 8.3 MG/DL (8.5-10.1) L Random Vancomycin Level 7.9 ug/mL Microbiology Date/Time Source Procedure Growth Status 09/03/18 17:30 Indwelling Cath Urine Culture - Preliminary Resulted Height (Feet): 5 Height (Inches): 3.00 Weight (Pounds): 328 General Appearance: alert Cardiovascular: normal rate Abdominal Exam: soft Objective generalized edema Markus Lebron NP Sep 04, 2018 10:57
[2018-09-04 12:00] VITALS: BP 108/67
--- NOTE | 2018-09-04 12:42 | Pulmonology Progress Note ---
Assessment/Plan Problems: (1) Acute encephalopathy (2) LENI (acute kidney injury) (3) ATN (acute tubular necrosis) (4) Coagulopathy (5) Esophageal varices (6) Alcoholic cirrhosis (7) End stage liver disease Assessment/Plan d/w mother at the bed site continues to improve pt wants to go home, pending outpatient HD set-up supportive care more awake, eating on Lactulose check ammonia level on abx check h/h, fever yesterday, ID following Subjective ROS Limited/Unobtainable: No Constitutional: Reports: no symptoms HEENT: Repors: no symptoms Respiratory: Reports: no symptoms Allergies: Coded Allergies: LORAZEPAM (Verified Allergy, Unknown, 05/21/18) PENICILLINS (Verified Allergy, Unknown, 05/21/18) Objective Last 24 Hour Vital Signs Date Time Temp Pulse Resp B/P (MAP) Pulse Ox O2 Delivery O2 Flow Rate FiO2 09/04/18 09:00 Room Air 09/04/18 08:00 98.7 92 18 105/57 (73) 96 98.7 09/04/18 05:15 98.3 09/04/18 04:17 98.3 92 18 100/54 (69) 92 98.3 09/03/18 21:28 101.4 09/03/18 20:22 Room Air 09/03/18 20:16 101.4 98 18 144/59 (87) 96 101.4 09/03/18 17:25 101.4 09/03/18 16:00 101.4 104 19 128/63 (84) 94 101.4 Intake and Output 09/03/18 09/04/18 19:00 07:00 Intake Total 663.708 ml 1016.292 ml Output Total 500 ml 1100 ml Balance 163.708 ml -83.708 ml Intake Oral 480 ml 420 ml IV Total 183.708 ml 596.292 ml Output Urine Total 500 ml 600 ml Stool Total 500 ml General Appearance: WD/WN HEENT: normocephalic, atraumatic Breasts: no masses Cardiovascular: normal peripheral pulses, normal rate Abdomen: normal bowel sounds, soft, non tender Genitourinary: normal external genitalia Extremities: no cyanosis Skin: no rash Microbiology Date/Time Source Procedure Growth Status 09/02/18 14:00 Blood Blood Culture - Preliminary NO GROWTH AFTER 24 HOURS Resulted 09/02/18 13:15 Blood Blood Culture - Preliminary NO GROWTH AFTER 24 HOURS Resulted 09/03/18 17:30 Indwelling Cath Urine Culture - Preliminary Resulted 09/02/18 12:15 Urine,Clean Catch Urine Culture - Preliminary Gram Negative Bacillus 1 Resulted Laboratory Tests 09/04/18 04:30: White Blood Count 9.8, Red Blood Count 2.61L, Hemoglobin 8.0L, Hematocrit 24.5L , Mean Corpuscular Volume 94, Mean Corpuscular Hemoglobin 30.6, Mean Corpuscular Hemoglobin Concent 32.6, Red Cell Distribution Width 17.7H, Platelet Count 89L, Mean Platelet Volume 8.5, Neutrophils (%) (Auto) , Lymphocytes (%) (Auto) , Monocytes (%) (Auto) , Eosinophils (%) (Auto) , Basophils (%) (Auto) , Differential Total Cells Counted 100, Neutrophils % ( Manual) 70, Lymphocytes % (Manual) 17L, Monocytes % (Manual) 10, Eosinophils % ( Manual) 2, Basophils % (Manual) 1, Band Neutrophils 0, Platelet Estimate DecreasedL, Platelet Morphology Normal, Hypochromasia 2+, Anisocytosis 1+, Spherocytes 1+, Sodium Level 137, Potassium Level 3.8, Chloride Level 105, Carbon Dioxide Level 21, Anion Gap 11, Blood Urea Nitrogen 42H, Creatinine 3.2H , Estimat Glomerular Filtration Rate 16.4, Glucose Level 102, Calcium Level 8.3L , Random Vancomycin Level 7.9 Current Medications Medications (Trade) Dose Ordered Sig/Abner Route PRN Reason Start Time Stop Time Status Last Admin Dose Admin Acetaminophen (Tylenol) 650 mg Q4H PRN ORAL Fever/Headache/Mild Pain 09/03/18 17:00 10/03/18 16:59 09/04/18 04:45 Al Hydroxide/Mg Hydroxide (Mylanta II) 30 ml Q6H PRN ORAL dyspepsia 09/02/18 20:27 09/27/18 20:26 Ceftriaxone Sodium 1 gm/ Dextrose 55 ml @ 110 mls/hr Q24H IVPB 09/03/18 20:00 09/10/18 19:59 09/03/18 20:03 Chlorhexidine Gluconate (Sierra-Hex 2%) 1 applic DAILY@2000 TOPIC 09/02/18 20:00 09/18/18 19:59 09/03/18 20:03 Dextrose (Dextrose 50%) 25 ml Q30M PRN IV Hypoglycemia 09/02/18 20:28 09/23/18 20:27 Dextrose (Dextrose 50%) 50 ml Q30M PRN IV Hypoglycemia 09/02/18 20:28 09/16/18 20:27 Lactulose (Cephulac) 30 gm EVERY 6 HOURS ORAL 09/03/18 00:00 09/16/18 11:59 Morphine Sulfate (Morphine Sulfate) 2 mg Q4H PRN IVP For Pain 09/02/18 20:29 09/06/18 20:28 09/04/18 09:27 Ondansetron HCl (Zofran) 4 mg Q6H PRN IVP Nausea & Vomiting 09/02/18 20:28 09/27/18 20:27 Pantoprazole (Protonix) 40 mg DAILY IVP 09/03/18 09:00 09/24/18 05:59 09/04/18 09:12 Rifaximin (Xifaxan) 550 mg EVERY 12 HOURS ORAL 09/02/18 21:00 09/05/18 08:59 09/04/18 11:08 Vancomycin HCl (Vanco rx to dose) 1 ea DAILY PRN MISC Per rx protocol 09/03/18 17:15 10/03/18 17:14 Jose Roberto Burleson MD Sep 04, 2018 12:42
--- NOTE | 2018-09-04 13:19 | General Progress Note ---
Assessment/Plan Status: stable Assessment/Plan # Thrombocytopenia. Baseline appears to be 50-80k. Is most likely related to underlying liver disease with e/o portal htn. Hx of ETOH use. She does have evidence of hepatic cirrhosis, with surface nodularity an increased echogenicity. Evidence of portal hypertension, with ascites, splenomegaly, and flow reversal within the main and right portal vein. Evidence of prior cholecystectomy. Negative for dilated ducts. Prior CT and US has been reviewed, hepatitis and hiv are both negative. --> Plt count has been improving. --> Peripheral smear ordered and is negative for blasts --> Abx and other meds have been reviewed. --> hold off heparin, asa, or plavix --> Transfuse plts if plt count >10k or if 20k and with fever, or >50k if bleeding --> Agree with lactulose and potential rifaximin for elev ammonia --> PLT Tx: 08/31 # Coagulopathy is likely related to underlying liver disease, liver us shows "Evidence of chronic liver disease with enlarged fatty liver and stigmata of portal hypertension including hepatofugal portal venous flow." --> no evidence of bleeding, hold off on tx unless bleeding is noted --> VIt K or ffp before a procedure # Anemia due to gastrointestinal bleed. Hemoglobin on admission 5-8 range, likely bleed related, ferritin is 1125 --> Gastroenterology is following. Appreciate recs. --> Hgb goal >7. Transfuse prn. --> 09/02: s/p EGD >> Esophageal varices, status post banding x7. # Anemia of chronic disease, multifactorial. Since admission hgb has consistently been 7-8.5 --> Previous w/u has been reviewed --> Will trend CBC daily --> Hgb goal above 7 --> Blood tx: 08/17,08/18, 08/19, 08/23, 08/25, 08/29, 08/31, 09/01, 09/02, # Acute kidney injury secondary to intravascular volume depletion along with ischemic acute tubular necrosis from hypotension. --> Nephro following. Appreciate recs. # Hyperkalemia secondary to renal insufficiency and gastrointestinal bleed. --> The patient was given Kayexalate 60 g already. 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 Subjective Date patient seen: Sep 04, 2018 ROS Limited/Unobtainable: Yes Hematologic/Lymphatic: Reports: anemia Allergies: Coded Allergies: LORAZEPAM (Verified Allergy, Unknown, 05/21/18) PENICILLINS (Verified Allergy, Unknown, 05/21/18) Subjective Pt awake and alert. No acute events. DC planning. To cont HD at home. Objective Last 24 Hour Vital Signs Date Time Temp Pulse Resp B/P (MAP) Pulse Ox O2 Delivery O2 Flow Rate FiO2 09/04/18 12:00 98.8 88 16 108/67 (81) 96 98.8 09/04/18 09:00 Room Air 09/04/18 08:00 98.7 92 18 105/57 (73) 96 98.7 09/04/18 05:15 98.3 09/04/18 04:17 98.3 92 18 100/54 (69) 92 98.3 09/03/18 21:28 101.4 09/03/18 20:22 Room Air 09/03/18 20:16 101.4 98 18 144/59 (87) 96 101.4 09/03/18 17:25 101.4 09/03/18 16:00 101.4 104 19 128/63 (84) 94 101.4 Intake and Output 09/03/18 09/04/18 19:00 07:00 Intake Total 663.708 ml 1016.292 ml Output Total 500 ml 1100 ml Balance 163.708 ml -83.708 ml Intake Oral 480 ml 420 ml IV Total 183.708 ml 596.292 ml Output Urine Total 500 ml 600 ml Stool Total 500 ml Laboratory Tests 09/04/18 04:30: White Blood Count 9.8, Red Blood Count 2.61L, Hemoglobin 8.0L, Hematocrit 24.5L , Mean Corpuscular Volume 94, Mean Corpuscular Hemoglobin 30.6, Mean Corpuscular Hemoglobin Concent 32.6, Red Cell Distribution Width 17.7H, Platelet Count 89L, Mean Platelet Volume 8.5, Neutrophils (%) (Auto) , Lymphocytes (%) (Auto) , Monocytes (%) (Auto) , Eosinophils (%) (Auto) , Basophils (%) (Auto) , Differential Total Cells Counted 100, Neutrophils % ( Manual) 70, Lymphocytes % (Manual) 17L, Monocytes % (Manual) 10, Eosinophils % ( Manual) 2, Basophils % (Manual) 1, Band Neutrophils 0, Platelet Estimate DecreasedL, Platelet Morphology Normal, Hypochromasia 2+, Anisocytosis 1+, Spherocytes 1+, Sodium Level 137, Potassium Level 3.8, Chloride Level 105, Carbon Dioxide Level 21, Anion Gap 11, Blood Urea Nitrogen 42H, Creatinine 3.2H , Estimat Glomerular Filtration Rate 16.4, Glucose Level 102, Calcium Level 8.3L , Random Vancomycin Level 7.9 Height (Feet): 5 Height (Inches): 3.00 Weight (Pounds): 328 General Appearance: no apparent distress EENT: PERRL/EOMI Neck: normal alignment Cardiovascular: normal peripheral pulses Respiratory/Chest: no respiratory distress Abdomen: non tender Objective stahl, and rectal tube++ Michael Hernandez MD Sep 04, 2018 13:19
--- NOTE | 2018-09-04 13:36 | General Progress Note ---
Assessment/Plan Problem List: (1) Edema ICD Codes: R60.9 - Edema, unspecified SNOMED: 579011412, 666423124 (2) Anemia ICD Codes: D64.9 - Anemia, unspecified SNOMED: 444645220 (3) Alcoholic cirrhosis ICD Codes: K70.30 - Alcoholic cirrhosis of liver without ascites SNOMED: 331760231 (4) Esophageal varices ICD Codes: I85.00 - Esophageal varices without bleeding SNOMED: 98970637 (5) Leukocytosis ICD Codes: D72.829 - Elevated white blood cell count, unspecified SNOMED: 708586787, 479932851 (6) GI bleed ICD Codes: K92.2 - Gastrointestinal hemorrhage, unspecified SNOMED: 37980655 (7) LENI (acute kidney injury) ICD Codes: N17.9 - Acute kidney failure, unspecified SNOMED: 78791652 (8) Sepsis ICD Codes: A41.9 - Sepsis, unspecified organism SNOMED: 03953301 (9) Seizure ICD Codes: R56.9 - Unspecified convulsions SNOMED: 69437458 Status: unchanged Assessment/Plan abx oe pulm tx transfuse prn gi heme f/u dialysis prn seizure control cbc bmp am promise ltach if clear Subjective Constitutional: Reports: weakness Allergies: Coded Allergies: LORAZEPAM (Verified Allergy, Unknown, 05/21/18) PENICILLINS (Verified Allergy, Unknown, 05/21/18) All Systems: reviewed and negative except above Subjective 02nc tired Objective Last 24 Hour Vital Signs Date Time Temp Pulse Resp B/P (MAP) Pulse Ox O2 Delivery O2 Flow Rate FiO2 09/04/18 12:00 98.8 88 16 108/67 (81) 96 98.8 09/04/18 09:00 Room Air 09/04/18 08:00 98.7 92 18 105/57 (73) 96 98.7 09/04/18 05:15 98.3 09/04/18 04:17 98.3 92 18 100/54 (69) 92 98.3 09/03/18 21:28 101.4 09/03/18 20:22 Room Air 09/03/18 20:16 101.4 98 18 144/59 (87) 96 101.4 09/03/18 17:25 101.4 09/03/18 16:00 101.4 104 19 128/63 (84) 94 101.4 Intake and Output 09/03/18 09/04/18 19:00 07:00 Intake Total 663.708 ml 1016.292 ml Output Total 500 ml 1100 ml Balance 163.708 ml -83.708 ml Intake Oral 480 ml 420 ml IV Total 183.708 ml 596.292 ml Output Urine Total 500 ml 600 ml Stool Total 500 ml Laboratory Tests 09/04/18 04:30: White Blood Count 9.8, Red Blood Count 2.61L, Hemoglobin 8.0L, Hematocrit 24.5L , Mean Corpuscular Volume 94, Mean Corpuscular Hemoglobin 30.6, Mean Corpuscular Hemoglobin Concent 32.6, Red Cell Distribution Width 17.7H, Platelet Count 89L, Mean Platelet Volume 8.5, Neutrophils (%) (Auto) , Lymphocytes (%) (Auto) , Monocytes (%) (Auto) , Eosinophils (%) (Auto) , Basophils (%) (Auto) , Differential Total Cells Counted 100, Neutrophils % ( Manual) 70, Lymphocytes % (Manual) 17L, Monocytes % (Manual) 10, Eosinophils % ( Manual) 2, Basophils % (Manual) 1, Band Neutrophils 0, Platelet Estimate DecreasedL, Platelet Morphology Normal, Hypochromasia 2+, Anisocytosis 1+, Spherocytes 1+, Sodium Level 137, Potassium Level 3.8, Chloride Level 105, Carbon Dioxide Level 21, Anion Gap 11, Blood Urea Nitrogen 42H, Creatinine 3.2H , Estimat Glomerular Filtration Rate 16.4, Glucose Level 102, Calcium Level 8.3L , Random Vancomycin Level 7.9 Height (Feet): 5 Height (Inches): 3.00 Weight (Pounds): 328 General Appearance: lethargic EENT: normal ENT inspection Neck: normal alignment Cardiovascular: normal peripheral pulses, normal rate, regular rhythm Respiratory/Chest: chest wall non-tender, decreased breath sounds Abdomen: normal bowel sounds, non tender, soft Extremities: normal inspection Edema: 1+ Arm (L), 1+ Arm (R), 1+ Leg (L), 1+ Leg (R), 1+ Pedal (L), 1+ Pedal ( R), 1+ Generalized Edema: trace edema Neurologic: motor weakness Skin: normal pigmentation, warm/dry Chauncey Fuentes DO Sep 04, 2018 13:36
[2018-09-04 16:00] VITALS: BP 105/59
--- NOTE | 2018-09-04 16:36 | Infectious Diseases Prog Note ---
Assessment/Plan Assessment/Plan Assessment/Plan The patient is a 38-year-old female with: Fever, improved Probable sepsis, SP -Bcx neg Leukocytosis; SP -CXR: Pulmonary vascular congestion with increased interstitial markings , likely representing interstitial edema. This appears improved relative to the chest x-ray from 07/22/18 Urinary tract infection, s/p Rx Rpt 09/02 sp UCx: GNR : Ucx: P u/a wbc 60-80, nit+, leuk large; ucx ESBL K. pna ( R zosyn, S ertapenem), Citrobacter freundi (R ancef, I Impienem, S ertapenem) History of hepatitis panel and HIV serology negative. Diarrhea on lactulose GIB -s/p EGD 08/19: esophageal varices Seizures episodes 08/24 (?related to carbapenem) Acute renal insufficiency.; on HD -Renal US: unremarkable Thrombocytopenia S/p permacath placement 08/30,now w/ bleeding from site Encephalopathy, multifactorial, ongoin -. Alcoholic cirrhosis -. Esophageal varices PLAN: -Continue Rocephin and Vanco d# 2 -08/25 SP Ertapenem #7 -08/19 SP Cefepime and Flagyl #3 -.Monitor BMP -.Renal, GI f/u - seizure precautions - aspiration precautions - Blood and Urine Cx Subjective Allergies: Coded Allergies: LORAZEPAM (Verified Allergy, Unknown, 05/21/18) PENICILLINS (Verified Allergy, Unknown, 05/21/18) Subjective Afebrile Objective Vital Signs Last 24 Hour Vital Signs Date Time Temp Pulse Resp B/P (MAP) Pulse Ox O2 Delivery O2 Flow Rate FiO2 09/04/18 12:00 98.8 88 16 108/67 (81) 96 98.8 09/04/18 09:00 Room Air 09/04/18 08:00 98.7 92 18 105/57 (73) 96 98.7 09/04/18 05:15 98.3 09/04/18 04:17 98.3 92 18 100/54 (69) 92 98.3 09/03/18 21:28 101.4 09/03/18 20:22 Room Air 09/03/18 20:16 101.4 98 18 144/59 (87) 96 101.4 09/03/18 17:25 101.4 Height (Feet): 5 Height (Inches): 3.00 Weight (Pounds): 328 HEENT: anicteric Respiratory/Chest: normal breath sounds Cardiovascular: regularly irregular Abdomen: non distended Microbiology Date/Time Source Procedure Growth Status 09/02/18 14:00 Blood Blood Culture - Preliminary NO GROWTH AFTER 24 HOURS Resulted 09/02/18 13:15 Blood Blood Culture - Preliminary NO GROWTH AFTER 24 HOURS Resulted 09/03/18 17:30 Indwelling Cath Urine Culture - Preliminary Resulted 09/02/18 12:15 Urine,Clean Catch Urine Culture - Preliminary Gram Negative Bacillus 1 Resulted Laboratory Tests Test 09/04/18 04:30 White Blood Count 9.8 K/UL (4.8-10.8) Red Blood Count 2.61 M/UL (4.20-5.40) L Hemoglobin 8.0 G/DL (12.0-16.0) L Hematocrit 24.5 % (37.0-47.0) L Mean Corpuscular Volume 94 FL (80-99) Mean Corpuscular Hemoglobin 30.6 PG (27.0-31.0) Mean Corpuscular Hemoglobin Concent 32.6 G/DL (32.0-36.0) Red Cell Distribution Width 17.7 % (11.6-14.8) H Platelet Count 89 K/UL (150-450) L Mean Platelet Volume 8.5 FL (6.5-10.1) Neutrophils (%) (Auto) % (45.0-75.0) Lymphocytes (%) (Auto) % (20.0-45.0) Monocytes (%) (Auto) % (1.0-10.0) Eosinophils (%) (Auto) % (0.0-3.0) Basophils (%) (Auto) % (0.0-2.0) Differential Total Cells Counted 100 Neutrophils % (Manual) 70 % (45-75) Lymphocytes % (Manual) 17 % (20-45) L Monocytes % (Manual) 10 % (1-10) Eosinophils % (Manual) 2 % (0-3) Basophils % (Manual) 1 % (0-2) Band Neutrophils 0 % (0-8) Platelet Estimate Decreased L Platelet Morphology Normal Hypochromasia 2+ Anisocytosis 1+ Spherocytes 1+ Sodium Level 137 MMOL/L (136-145) Potassium Level 3.8 MMOL/L (3.5-5.1) Chloride Level 105 MMOL/L (98-107) Carbon Dioxide Level 21 MMOL/L (21-32) Anion Gap 11 mmol/L (5-15) Blood Urea Nitrogen 42 mg/dL (7-18) H Creatinine 3.2 MG/DL (0.55-1.30) H Estimat Glomerular Filtration Rate 16.4 mL/min (>60) Glucose Level 102 MG/DL (74-106) Calcium Level 8.3 MG/DL (8.5-10.1) L Random Vancomycin Level 7.9 ug/mL Current Medications Medications (Trade) Dose Ordered Sig/Abner Route PRN Reason Start Time Stop Time Status Last Admin Dose Admin Acetaminophen (Tylenol) 650 mg Q4H PRN ORAL Fever/Headache/Mild Pain 09/03/18 17:00 10/03/18 16:59 09/04/18 04:45 Al Hydroxide/Mg Hydroxide (Mylanta II) 30 ml Q6H PRN ORAL dyspepsia 09/02/18 20:27 09/27/18 20:26 Ceftriaxone Sodium 1 gm/ Dextrose 55 ml @ 110 mls/hr Q24H IVPB 09/03/18 20:00 09/10/18 19:59 09/03/18 20:03 Chlorhexidine Gluconate (Sierra-Hex 2%) 1 applic DAILY@2000 TOPIC 09/02/18 20:00 09/18/18 19:59 09/03/18 20:03 Dextrose (Dextrose 50%) 25 ml Q30M PRN IV Hypoglycemia 09/02/18 20:28 09/23/18 20:27 Dextrose (Dextrose 50%) 50 ml Q30M PRN IV Hypoglycemia 09/02/18 20:28 09/16/18 20:27 Lactulose (Cephulac) 30 gm EVERY 6 HOURS ORAL 09/03/18 00:00 09/16/18 11:59 09/04/18 12:38 Morphine Sulfate (Morphine Sulfate) 2 mg Q4H PRN IVP For Pain 09/02/18 20:29 09/06/18 20:28 09/04/18 09:27 Ondansetron HCl (Zofran) 4 mg Q6H PRN IVP Nausea & Vomiting 09/02/18 20:28 09/27/18 20:27 Pantoprazole (Protonix) 40 mg DAILY IVP 09/03/18 09:00 09/24/18 05:59 09/04/18 09:12 Rifaximin (Xifaxan) 550 mg EVERY 12 HOURS ORAL 09/02/18 21:00 09/05/18 08:59 09/04/18 11:08 Vancomycin HCl (Vanco rx to dose) 1 ea DAILY PRN MISC Per rx protocol 09/03/18 17:15 10/03/18 17:14 Laz Monroy MD Sep 04, 2018 16:36
[2018-09-04 20:00] VITALS: BP 131/68
[2018-09-04] MEDS: cefTRIAXone 1gm/D5W 55ml IVPB SCH ×2 (20:45)
[2018-09-04] MEDS: Dyna-Hex 2% Top Sol 2oz TOPIC SCH (20:46)
[2018-09-05] VITALS: BP 113/61
[2018-09-05] MEDS: Morphine Sulfate 2mg/ml Inj IVP PRN ×3 (03:09→21:57)
[2018-09-05 04:00] VITALS: BP 115/59
[2018-09-05 05:06] LABS: HEMATOCRIT 25.5 % (37.0-47.0); HEMOGLOBIN 8.4 G/DL (12.0-16.0); MEAN CORPUSCULAR VOLUME 93 FL (80-99); PLATELET COUNT 99 K/UL (150-450); RED BLOOD COUNT 2.74 M/UL (4.20-5.40); RED CELL DISTRIBUTION WIDTH 17.1 % (11.6-14.8)
[2018-09-05 05:24] LABS: ANION GAP 10 mmol/L (5-15); BLOOD UREA NITROGEN 36 mg/dL (7-18); CALCIUM 8.8 MG/DL (8.5-10.1); CARBON DIOXIDE 24 MMOL/L (21-32); CHLORIDE 103 MMOL/L (98-107); CREATININE 2.8 MG/DL (0.55-1.30); POTASSIUM 3.9 MMOL/L (3.5-5.1); SODIUM 137 MMOL/L (136-145)
[2018-09-05] MEDS: Lactulose 20gm/30ml UDC ORAL SCH ×3 (05:32→19:43)
[2018-09-05] MEDS ORDERED: Vancomycin 1gm/D5W 275ml IVPB ONE ×2 (08:00)
--- NOTE | 2018-09-05 08:15 | Nephrology Progress Note ---
Assessment/Plan Assessment/Plan 1. ESRD- multifact ATN ( hypotension/intravasc vol dep/?hepatorenal/Anemia) - Had HD yesterday. Continue to monitor for renal recovery 2. Hypok+- replace prn. Stable 3. 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 Edema- lasix prn. Had HD yesterday 5. GI Bleed/Anemia- per GI mgmt - prn blood tx Hgb <7 Subjective Date patient seen: Sep 05, 2018 Time patient seen: 08:14 ROS Limited/Unobtainable: No Allergies: Coded Allergies: LORAZEPAM (Verified Allergy, Unknown, 05/21/18) PENICILLINS (Verified Allergy, Unknown, 05/21/18) Subjective Patient resting comfortably Objective Last 24 Hour Vital Signs Date Time Temp Pulse Resp B/P (MAP) Pulse Ox O2 Delivery O2 Flow Rate FiO2 09/05/18 04:00 98.4 95 17 115/59 (77) 94 09/05/18 00:00 98.1 78 19 113/61 (78) 94 09/04/18 21:00 Room Air 09/04/18 20:33 Room Air 09/04/18 20:03 Nasal Cannula 2.0 28 09/04/18 20:03 97 Nasal Cannula 2.0 28 09/04/18 20:00 98.1 89 18 131/68 (89) 95 09/04/18 16:00 98.8 91 18 105/59 (74) 99 09/04/18 12:00 98.8 88 16 108/67 (81) 96 98.8 09/04/18 09:00 Room Air Intake and Output 09/04/18 09/05/18 18:59 06:59 Intake Total 1050 ml 295 ml Output Total 250 ml 3300 ml Balance 800 ml -3005 ml Intake Oral 240 ml IV Total 200 ml 55 ml Other 850 ml Output Urine Total 250 ml 200 ml Stool Total 200 ml Hemodialysis UF 2900 ml Laboratory Tests 09/05/18 04:30: White Blood Count 10.0, Red Blood Count 2.74L, Hemoglobin 8.4L, Hematocrit 25.5L , Mean Corpuscular Volume 93, Mean Corpuscular Hemoglobin 30.7, Mean Corpuscular Hemoglobin Concent 32.9, Red Cell Distribution Width 17.1H, Platelet Count 99L, Mean Platelet Volume 9.4, Neutrophils (%) (Auto) , Lymphocytes (%) (Auto) , Monocytes (%) (Auto) , Eosinophils (%) (Auto) , Basophils (%) (Auto) , Neutrophils % (Manual) [Pending], Lymphocytes % (Manual) [Pending], Platelet Estimate [Pending], Platelet Morphology [Pending], Sodium Level 137, Potassium Level 3.9, Chloride Level 103, Carbon Dioxide Level 24, Anion Gap 10, Blood Urea Nitrogen 36H, Creatinine 2.8H, Estimat Glomerular Filtration Rate 19.1, Glucose Level 110H, Calcium Level 8.8, Random Vancomycin Level 13.1 Height (Feet): 5 Height (Inches): 3.00 Weight (Pounds): 322 General Appearance: no apparent distress EENT: normal ENT inspection Neck: normal alignment, supple Cardiovascular: normal rate, regular rhythm Respiratory/Chest: lungs clear, normal breath sounds Abdomen: non tender, soft, distended Edema: 1+ Arm (L), 1+ Arm (R), 1+ Leg (L), 1+ Leg (R), 1+ Pedal (L), 1+ Pedal ( R), 1+ Generalized Amos Pinon MD Sep 05, 2018 08:15
[2018-09-05 08:40] VITALS: BP 128/60
[2018-09-05] MEDS: Pantoprazole Inj IVP SCH (10:25)
--- NOTE | 2018-09-05 11:22 | GI Progress Note ---
Assessment/Plan Problems: (1) Ascites ICD Codes: R18.8 - Other ascites SNOMED: 517235471 (2) Alcoholic cirrhosis ICD Codes: K70.30 - Alcoholic cirrhosis of liver without ascites SNOMED: 425265419 (3) Esophageal varices ICD Codes: I85.00 - Esophageal varices without bleeding SNOMED: 30766705 (4) Anemia ICD Codes: D64.9 - Anemia, unspecified SNOMED: 833422639 (5) Chronic renal insufficiency ICD Codes: N18.9 - Chronic kidney disease, unspecified SNOMED: 842482575 (6) Coagulopathy ICD Codes: D68.9 - Coagulation defect, unspecified SNOMED: 42381749 (7) Hemorrhagic shock ICD Codes: R57.8 - Other shock SNOMED: 851733 (8) GI bleed ICD Codes: K92.2 - Gastrointestinal hemorrhage, unspecified SNOMED: 25776421 Status: stable Status Narrative Discussed with Dr. Rodriguez. Assessment/Plan s/p EGD >> Esophageal varices, status post banding x7. more awake and alert, ST evaluation >> passed RECOMMENDATIONS: on renal diet, tolerating ppi BID transfuse prn lactulose + Xifaxan very poor prognosis portal HTN management with propranolol fu labs dc planning The patient was seen and examined at bedside and all new and available data was reviewed in the patients chart. I agree with the above findings, impression and plan. (Patient seen earlier today. Signature stamp does not reflect patient encounter time.). - Christopher Rodriguez MD Subjective Subjective abdominal pain fatigue Objective Last 24 Hour Vital Signs Date Time Temp Pulse Resp B/P (MAP) Pulse Ox O2 Delivery O2 Flow Rate FiO2 09/05/18 08:40 99.6 102 20 128/60 (82) 97 09/05/18 04:00 98.4 95 17 115/59 (77) 94 09/05/18 00:00 98.1 78 19 113/61 (78) 94 09/04/18 21:00 Room Air 09/04/18 20:33 Room Air 09/04/18 20:03 Nasal Cannula 2.0 28 09/04/18 20:03 97 Nasal Cannula 2.0 28 09/04/18 20:00 98.1 89 18 131/68 (89) 95 09/04/18 16:00 98.8 91 18 105/59 (74) 99 09/04/18 12:00 98.8 88 16 108/67 (81) 96 98.8 Intake and Output 09/04/18 09/05/18 19:00 07:00 Intake Total 1050 ml 295 ml Output Total 250 ml 3300 ml Balance 800 ml -3005 ml Intake Oral 240 ml IV Total 200 ml 55 ml Other 850 ml Output Urine Total 250 ml 200 ml Stool Total 200 ml Hemodialysis UF 2900 ml Laboratory Tests Test 09/05/18 04:30 White Blood Count 10.0 K/UL (4.8-10.8) Red Blood Count 2.74 M/UL (4.20-5.40) L Hemoglobin 8.4 G/DL (12.0-16.0) L Hematocrit 25.5 % (37.0-47.0) L Mean Corpuscular Volume 93 FL (80-99) Mean Corpuscular Hemoglobin 30.7 PG (27.0-31.0) Mean Corpuscular Hemoglobin Concent 32.9 G/DL (32.0-36.0) Red Cell Distribution Width 17.1 % (11.6-14.8) H Platelet Count 99 K/UL (150-450) L Mean Platelet Volume 9.4 FL (6.5-10.1) Neutrophils (%) (Auto) % (45.0-75.0) Lymphocytes (%) (Auto) % (20.0-45.0) Monocytes (%) (Auto) % (1.0-10.0) Eosinophils (%) (Auto) % (0.0-3.0) Basophils (%) (Auto) % (0.0-2.0) Differential Total Cells Counted 100 Neutrophils % (Manual) 70 % (45-75) Lymphocytes % (Manual) 14 % (20-45) L Monocytes % (Manual) 15 % (1-10) H Eosinophils % (Manual) 0 % (0-3) Basophils % (Manual) 1 % (0-2) Band Neutrophils 0 % (0-8) Platelet Estimate Decreased L Platelet Morphology Normal Anisocytosis 1+ Sodium Level 137 MMOL/L (136-145) Potassium Level 3.9 MMOL/L (3.5-5.1) Chloride Level 103 MMOL/L (98-107) Carbon Dioxide Level 24 MMOL/L (21-32) Anion Gap 10 mmol/L (5-15) Blood Urea Nitrogen 36 mg/dL (7-18) H Creatinine 2.8 MG/DL (0.55-1.30) H Estimat Glomerular Filtration Rate 19.1 mL/min (>60) Glucose Level 110 MG/DL (74-106) H Calcium Level 8.8 MG/DL (8.5-10.1) Random Vancomycin Level 13.1 ug/mL Height (Feet): 5 Height (Inches): 3.00 Weight (Pounds): 322 General Appearance: WD/WN, no apparent distress, alert, obese Cardiovascular: normal rate Respiratory/Chest: normal breath sounds, no respiratory distress Abdominal Exam: normal bowel sounds, non tender, soft Extremities: non-tender Objective generalized edema Markus Lebron NP Sep 05, 2018 11:22
[2018-09-05 11:25] VITALS: BP 115/65
--- NOTE | 2018-09-05 12:53 | Pulmonology Progress Note ---
Assessment/Plan Problems: (1) Acute encephalopathy (2) LENI (acute kidney injury) (3) ATN (acute tubular necrosis) (4) Coagulopathy (5) Esophageal varices (6) Alcoholic cirrhosis (7) End stage liver disease Assessment/Plan got dialyzed yesterday low grade fever continues to improve pt wants to go home, pending outpatient HD set-up supportive care more awake, eating on Lactulose check ammonia level on abx check h/h, fever yesterday, ID following Subjective ROS Limited/Unobtainable: No Constitutional: Reports: no symptoms HEENT: Repors: no symptoms Respiratory: Reports: no symptoms Allergies: Coded Allergies: LORAZEPAM (Verified Allergy, Unknown, 05/21/18) PENICILLINS (Verified Allergy, Unknown, 05/21/18) Objective Last 24 Hour Vital Signs Date Time Temp Pulse Resp B/P (MAP) Pulse Ox O2 Delivery O2 Flow Rate FiO2 09/05/18 11:25 99.7 100 20 115/65 (82) 96 09/05/18 09:00 Room Air 09/05/18 08:40 99.6 102 20 128/60 (82) 97 09/05/18 04:00 98.4 95 17 115/59 (77) 94 09/05/18 00:00 98.1 78 19 113/61 (78) 94 09/04/18 21:00 Room Air 09/04/18 20:33 Room Air 09/04/18 20:03 Nasal Cannula 2.0 28 09/04/18 20:03 97 Nasal Cannula 2.0 28 09/04/18 20:00 98.1 89 18 131/68 (89) 95 09/04/18 16:00 98.8 91 18 105/59 (74) 99 Intake and Output 09/04/18 09/05/18 19:00 07:00 Intake Total 1050 ml 295 ml Output Total 250 ml 3300 ml Balance 800 ml -3005 ml Intake Oral 240 ml IV Total 200 ml 55 ml Other 850 ml Output Urine Total 250 ml 200 ml Stool Total 200 ml Hemodialysis UF 2900 ml General Appearance: WD/WN HEENT: normocephalic, anicteric Respiratory/Chest: chest wall non-tender, lungs clear Breasts: no masses Cardiovascular: normal rate Abdomen: normal bowel sounds, soft, non tender 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, abnormal gait Lymphatic: no neck adenopathy Microbiology Date/Time Source Procedure Growth Status 09/03/18 18:15 Blood Blood Culture - Preliminary NO GROWTH AFTER 24 HOURS Resulted 09/03/18 17:50 Blood Blood Culture - Preliminary NO GROWTH AFTER 24 HOURS Resulted 09/02/18 14:00 Blood Blood Culture - Preliminary NO GROWTH AFTER 48 HOURS Resulted 09/02/18 13:15 Blood Blood Culture - Preliminary NO GROWTH AFTER 48 HOURS Resulted 09/03/18 17:30 Indwelling Cath Urine Culture - Preliminary Resulted Laboratory Tests 09/05/18 04:30: White Blood Count 10.0, Red Blood Count 2.74L, Hemoglobin 8.4L, Hematocrit 25.5L , Mean Corpuscular Volume 93, Mean Corpuscular Hemoglobin 30.7, Mean Corpuscular Hemoglobin Concent 32.9, Red Cell Distribution Width 17.1H, Platelet Count 99L, Mean Platelet Volume 9.4, Neutrophils (%) (Auto) , Lymphocytes (%) (Auto) , Monocytes (%) (Auto) , Eosinophils (%) (Auto) , Basophils (%) (Auto) , Differential Total Cells Counted 100, Neutrophils % ( Manual) 70, Lymphocytes % (Manual) 14L, Monocytes % (Manual) 15H, Eosinophils % (Manual) 0, Basophils % (Manual) 1, Band Neutrophils 0, Platelet Estimate DecreasedL, Platelet Morphology Normal, Anisocytosis 1+, Sodium Level 137, Potassium Level 3.9, Chloride Level 103, Carbon Dioxide Level 24, Anion Gap 10, Blood Urea Nitrogen 36H, Creatinine 2.8H, Estimat Glomerular Filtration Rate 19.1, Glucose Level 110H, Calcium Level 8.8, Random Vancomycin Level 13.1 Current Medications Medications (Trade) Dose Ordered Sig/Abner Route PRN Reason Start Time Stop Time Status Last Admin Dose Admin Acetaminophen (Tylenol) 650 mg Q4H PRN ORAL Fever/Headache/Mild Pain 09/03/18 17:00 10/03/18 16:59 09/04/18 04:45 Al Hydroxide/Mg Hydroxide (Mylanta II) 30 ml Q6H PRN ORAL dyspepsia 09/02/18 20:27 09/27/18 20:26 Ceftriaxone Sodium 1 gm/ Dextrose 55 ml @ 110 mls/hr Q24H IVPB 09/03/18 20:00 09/10/18 19:59 09/04/18 20:45 Chlorhexidine Gluconate (Sierra-Hex 2%) 1 applic DAILY@2000 TOPIC 09/02/18 20:00 09/18/18 19:59 09/04/18 20:46 Dextrose (Dextrose 50%) 25 ml Q30M PRN IV Hypoglycemia 09/02/18 20:28 09/23/18 20:27 Dextrose (Dextrose 50%) 50 ml Q30M PRN IV Hypoglycemia 09/02/18 20:28 09/16/18 20:27 Lactulose (Cephulac) 30 gm EVERY 6 HOURS ORAL 09/03/18 00:00 09/16/18 11:59 09/05/18 11:53 Morphine Sulfate (Morphine Sulfate) 2 mg Q4H PRN IVP For Pain 09/02/18 20:29 09/06/18 20:28 09/05/18 11:54 Ondansetron HCl (Zofran) 4 mg Q6H PRN IVP Nausea & Vomiting 09/02/18 20:28 09/27/18 20:27 Pantoprazole (Protonix) 40 mg DAILY IVP 09/03/18 09:00 09/24/18 05:59 09/05/18 10:25 Vancomycin HCl (Vanco rx to dose) 1 ea DAILY PRN MISC Per rx protocol 09/03/18 17:15 10/03/18 17:14 Jose Roberto Burleson MD Sep 05, 2018 12:53
--- NOTE | 2018-09-05 13:02 | General Progress Note ---
Assessment/Plan Problem List: (1) Edema ICD Codes: R60.9 - Edema, unspecified SNOMED: 034060997, 547344648 (2) Anemia ICD Codes: D64.9 - Anemia, unspecified SNOMED: 187365064 (3) Alcoholic cirrhosis ICD Codes: K70.30 - Alcoholic cirrhosis of liver without ascites SNOMED: 198522173 (4) Esophageal varices ICD Codes: I85.00 - Esophageal varices without bleeding SNOMED: 74696889 (5) Leukocytosis ICD Codes: D72.829 - Elevated white blood cell count, unspecified SNOMED: 423050150, 600683395 (6) GI bleed ICD Codes: K92.2 - Gastrointestinal hemorrhage, unspecified SNOMED: 97598639 (7) LENI (acute kidney injury) ICD Codes: N17.9 - Acute kidney failure, unspecified SNOMED: 66974110 (8) Sepsis ICD Codes: A41.9 - Sepsis, unspecified organism SNOMED: 61527109 (9) Seizure ICD Codes: R56.9 - Unspecified convulsions SNOMED: 03441599 Status: unchanged Assessment/Plan abx oe pulm tx transfuse prn gi heme f/u dialysis prn seizure control cbc bmp am promise ltach if clear Subjective Constitutional: Reports: weakness Allergies: Coded Allergies: LORAZEPAM (Verified Allergy, Unknown, 05/21/18) PENICILLINS (Verified Allergy, Unknown, 05/21/18) All Systems: reviewed and negative except above Subjective sleepy calm in bed Objective Last 24 Hour Vital Signs Date Time Temp Pulse Resp B/P (MAP) Pulse Ox O2 Delivery O2 Flow Rate FiO2 09/05/18 11:25 99.7 100 20 115/65 (82) 96 09/05/18 09:00 Room Air 09/05/18 08:40 99.6 102 20 128/60 (82) 97 09/05/18 04:00 98.4 95 17 115/59 (77) 94 09/05/18 00:00 98.1 78 19 113/61 (78) 94 09/04/18 21:00 Room Air 09/04/18 20:33 Room Air 09/04/18 20:03 Nasal Cannula 2.0 28 09/04/18 20:03 97 Nasal Cannula 2.0 28 09/04/18 20:00 98.1 89 18 131/68 (89) 95 09/04/18 16:00 98.8 91 18 105/59 (74) 99 Intake and Output 09/04/18 09/05/18 19:00 07:00 Intake Total 1050 ml 295 ml Output Total 250 ml 3300 ml Balance 800 ml -3005 ml Intake Oral 240 ml IV Total 200 ml 55 ml Other 850 ml Output Urine Total 250 ml 200 ml Stool Total 200 ml Hemodialysis UF 2900 ml Laboratory Tests 09/05/18 04:30: White Blood Count 10.0, Red Blood Count 2.74L, Hemoglobin 8.4L, Hematocrit 25.5L , Mean Corpuscular Volume 93, Mean Corpuscular Hemoglobin 30.7, Mean Corpuscular Hemoglobin Concent 32.9, Red Cell Distribution Width 17.1H, Platelet Count 99L, Mean Platelet Volume 9.4, Neutrophils (%) (Auto) , Lymphocytes (%) (Auto) , Monocytes (%) (Auto) , Eosinophils (%) (Auto) , Basophils (%) (Auto) , Differential Total Cells Counted 100, Neutrophils % ( Manual) 70, Lymphocytes % (Manual) 14L, Monocytes % (Manual) 15H, Eosinophils % (Manual) 0, Basophils % (Manual) 1, Band Neutrophils 0, Platelet Estimate DecreasedL, Platelet Morphology Normal, Anisocytosis 1+, Sodium Level 137, Potassium Level 3.9, Chloride Level 103, Carbon Dioxide Level 24, Anion Gap 10, Blood Urea Nitrogen 36H, Creatinine 2.8H, Estimat Glomerular Filtration Rate 19.1, Glucose Level 110H, Calcium Level 8.8, Random Vancomycin Level 13.1 Height (Feet): 5 Height (Inches): 3.00 Weight (Pounds): 322 General Appearance: lethargic EENT: normal ENT inspection Neck: normal alignment Cardiovascular: normal peripheral pulses, normal rate, regular rhythm Respiratory/Chest: chest wall non-tender, decreased breath sounds Abdomen: normal bowel sounds, non tender, soft Extremities: normal inspection Edema: 1+ Arm (L), 1+ Arm (R), 1+ Leg (L), 1+ Leg (R), 1+ Pedal (L), 1+ Pedal ( R), 1+ Generalized Edema: trace edema Neurologic: motor weakness Skin: normal pigmentation, warm/dry Chauncey Fuentes DO Sep 05, 2018 13:02
--- NOTE | 2018-09-05 13:32 | General Progress Note ---
Assessment/Plan Status: stable Assessment/Plan # Thrombocytopenia. Baseline appears to be 50-80k. Is most likely related to underlying liver disease with e/o portal htn. Hx of ETOH use. She does have evidence of hepatic cirrhosis, with surface nodularity an increased echogenicity. Evidence of portal hypertension, with ascites, splenomegaly, and flow reversal within the main and right portal vein. Evidence of prior cholecystectomy. Negative for dilated ducts. Prior CT and US has been reviewed, hepatitis and hiv are both negative. --> Plt count has been improving. --> Peripheral smear ordered and is negative for blasts --> Abx and other meds have been reviewed. --> hold off heparin, asa, or plavix --> Transfuse plts if plt count >10k or if 20k and with fever, or >50k if bleeding --> Agree with lactulose and potential rifaximin for elev ammonia --> PLT Tx: 08/31 # Coagulopathy is likely related to underlying liver disease, liver us shows "Evidence of chronic liver disease with enlarged fatty liver and stigmata of portal hypertension including hepatofugal portal venous flow." --> no evidence of bleeding, hold off on tx unless bleeding is noted --> VIt K or ffp before a procedure # Anemia due to gastrointestinal bleed. Hemoglobin on admission 5-8 range, likely bleed related, ferritin is 1125 --> Gastroenterology is following. Appreciate recs. --> Hgb goal >7. Transfuse prn. --> 09/02: s/p EGD >> Esophageal varices, status post banding x7. # Anemia of chronic disease, multifactorial. Since admission hgb has consistently been 7-8.5 --> Previous w/u has been reviewed --> Will trend CBC daily --> Hgb goal above 7 --> Blood tx: 08/17,08/18, 08/19, 08/23, 08/25, 08/29, 08/31, 09/01, 09/02, # Acute kidney injury secondary to intravascular volume depletion along with ischemic acute tubular necrosis from hypotension. --> Nephro following. Appreciate recs. # Hyperkalemia secondary to renal insufficiency and gastrointestinal bleed. --> The patient was given Kayexalate 60 g already. 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 Subjective Date patient seen: Sep 05, 2018 ROS Limited/Unobtainable: Yes Hematologic/Lymphatic: Reports: anemia Allergies: Coded Allergies: LORAZEPAM (Verified Allergy, Unknown, 05/21/18) PENICILLINS (Verified Allergy, Unknown, 05/21/18) Subjective Pt awake and alert. No acute events. DC planning. Objective Last 24 Hour Vital Signs Date Time Temp Pulse Resp B/P (MAP) Pulse Ox O2 Delivery O2 Flow Rate FiO2 09/05/18 11:25 99.7 100 20 115/65 (82) 96 09/05/18 09:00 Room Air 09/05/18 08:40 99.6 102 20 128/60 (82) 97 09/05/18 04:00 98.4 95 17 115/59 (77) 94 09/05/18 00:00 98.1 78 19 113/61 (78) 94 09/04/18 21:00 Room Air 09/04/18 20:33 Room Air 09/04/18 20:03 Nasal Cannula 2.0 28 09/04/18 20:03 97 Nasal Cannula 2.0 28 09/04/18 20:00 98.1 89 18 131/68 (89) 95 09/04/18 16:00 98.8 91 18 105/59 (74) 99 Intake and Output 09/04/18 09/05/18 19:00 07:00 Intake Total 1050 ml 295 ml Output Total 250 ml 3300 ml Balance 800 ml -3005 ml Intake Oral 240 ml IV Total 200 ml 55 ml Other 850 ml Output Urine Total 250 ml 200 ml Stool Total 200 ml Hemodialysis UF 2900 ml Laboratory Tests 09/05/18 04:30: White Blood Count 10.0, Red Blood Count 2.74L, Hemoglobin 8.4L, Hematocrit 25.5L , Mean Corpuscular Volume 93, Mean Corpuscular Hemoglobin 30.7, Mean Corpuscular Hemoglobin Concent 32.9, Red Cell Distribution Width 17.1H, Platelet Count 99L, Mean Platelet Volume 9.4, Neutrophils (%) (Auto) , Lymphocytes (%) (Auto) , Monocytes (%) (Auto) , Eosinophils (%) (Auto) , Basophils (%) (Auto) , Differential Total Cells Counted 100, Neutrophils % ( Manual) 70, Lymphocytes % (Manual) 14L, Monocytes % (Manual) 15H, Eosinophils % (Manual) 0, Basophils % (Manual) 1, Band Neutrophils 0, Platelet Estimate DecreasedL, Platelet Morphology Normal, Anisocytosis 1+, Sodium Level 137, Potassium Level 3.9, Chloride Level 103, Carbon Dioxide Level 24, Anion Gap 10, Blood Urea Nitrogen 36H, Creatinine 2.8H, Estimat Glomerular Filtration Rate 19.1, Glucose Level 110H, Calcium Level 8.8, Random Vancomycin Level 13.1 Height (Feet): 5 Height (Inches): 3.00 Weight (Pounds): 322 General Appearance: no apparent distress EENT: PERRL/EOMI Neck: normal alignment Cardiovascular: normal peripheral pulses Respiratory/Chest: no respiratory distress Abdomen: soft Objective stahl, and rectal tube++ Michael Hernandez MD Sep 05, 2018 13:32
[2018-09-05 15:26] VITALS: BP 115/68
--- NOTE | 2018-09-05 18:02 | Infectious Diseases Prog Note ---
Assessment/Plan Assessment/Plan Assessment/Plan The patient is a 38-year-old female with: Fever, Probable sepsis, SP -Bcx neg Leukocytosis; SP -CXR: Pulmonary vascular congestion with increased interstitial markings , likely representing interstitial edema. This appears improved relative to the chest x-ray from 07/22/18 Urinary tract infection, 09/02 sp UCx: Kleb : Ucx: P ; ucx ESBL K. pna ( R zosyn, S ertapenem), Citrobacter freundi (R ancef, I Impienem, S ertapenem) History of hepatitis panel and HIV serology negative. Diarrhea on lactulose GIB -s/p EGD 08/19: esophageal varices Seizures episodes 08/24 (?related to carbapenem) Acute renal insufficiency.; on HD -Renal US: unremarkable Thrombocytopenia S/p permacath placement 08/30,now w/ bleeding from site Encephalopathy, multifactorial, ongoin -. Alcoholic cirrhosis -. Esophageal varices PLAN: -Continue Vanco d# 3 and add Merrem d# 1 and DC Rocephin d# 3 -08/25 SP Ertapenem #7 -08/19 SP Cefepime and Flagyl #3 -.Monitor BMP -.Renal, GI f/u - seizure precautions - aspiration precautions - Blood and Urine Cx Subjective Allergies: Coded Allergies: LORAZEPAM (Verified Allergy, Unknown, 05/21/18) PENICILLINS (Verified Allergy, Unknown, 05/21/18) Subjective febrile Objective Vital Signs Last 24 Hour Vital Signs Date Time Temp Pulse Resp B/P (MAP) Pulse Ox O2 Delivery O2 Flow Rate FiO2 09/05/18 15:26 101.3 97 20 115/68 (84) 96 09/05/18 11:25 99.7 100 20 115/65 (82) 96 09/05/18 09:00 Room Air 09/05/18 08:40 99.6 102 20 128/60 (82) 97 09/05/18 08:16 Nasal Cannula 2.0 28 09/05/18 08:16 96 Nasal Cannula 2.0 28 09/05/18 04:00 98.4 95 17 115/59 (77) 94 09/05/18 00:00 98.1 78 19 113/61 (78) 94 09/04/18 21:00 Room Air 09/04/18 20:33 Room Air 09/04/18 20:03 Nasal Cannula 2.0 28 09/04/18 20:03 97 Nasal Cannula 2.0 28 09/04/18 20:00 98.1 89 18 131/68 (89) 95 Height (Feet): 5 Height (Inches): 3.00 Weight (Pounds): 322 HEENT: atraumatic Respiratory/Chest: no respiratory distress Cardiovascular: regular rhythm Abdomen: normal bowel sounds Microbiology Date/Time Source Procedure Growth Status 09/03/18 18:15 Blood Blood Culture - Preliminary NO GROWTH AFTER 24 HOURS Resulted 09/03/18 17:50 Blood Blood Culture - Preliminary NO GROWTH AFTER 24 HOURS Resulted 09/03/18 17:30 Indwelling Cath Urine Culture - Preliminary Resulted Laboratory Tests Test 09/05/18 04:30 White Blood Count 10.0 K/UL (4.8-10.8) Red Blood Count 2.74 M/UL (4.20-5.40) L Hemoglobin 8.4 G/DL (12.0-16.0) L Hematocrit 25.5 % (37.0-47.0) L Mean Corpuscular Volume 93 FL (80-99) Mean Corpuscular Hemoglobin 30.7 PG (27.0-31.0) Mean Corpuscular Hemoglobin Concent 32.9 G/DL (32.0-36.0) Red Cell Distribution Width 17.1 % (11.6-14.8) H Platelet Count 99 K/UL (150-450) L Mean Platelet Volume 9.4 FL (6.5-10.1) Neutrophils (%) (Auto) % (45.0-75.0) Lymphocytes (%) (Auto) % (20.0-45.0) Monocytes (%) (Auto) % (1.0-10.0) Eosinophils (%) (Auto) % (0.0-3.0) Basophils (%) (Auto) % (0.0-2.0) Differential Total Cells Counted 100 Neutrophils % (Manual) 70 % (45-75) Lymphocytes % (Manual) 14 % (20-45) L Monocytes % (Manual) 15 % (1-10) H Eosinophils % (Manual) 0 % (0-3) Basophils % (Manual) 1 % (0-2) Band Neutrophils 0 % (0-8) Platelet Estimate Decreased L Platelet Morphology Normal Anisocytosis 1+ Sodium Level 137 MMOL/L (136-145) Potassium Level 3.9 MMOL/L (3.5-5.1) Chloride Level 103 MMOL/L (98-107) Carbon Dioxide Level 24 MMOL/L (21-32) Anion Gap 10 mmol/L (5-15) Blood Urea Nitrogen 36 mg/dL (7-18) H Creatinine 2.8 MG/DL (0.55-1.30) H Estimat Glomerular Filtration Rate 19.1 mL/min (>60) Glucose Level 110 MG/DL (74-106) H Calcium Level 8.8 MG/DL (8.5-10.1) Random Vancomycin Level 13.1 ug/mL Current Medications Medications (Trade) Dose Ordered Sig/Abner Route PRN Reason Start Time Stop Time Status Last Admin Dose Admin Acetaminophen (Tylenol) 650 mg Q4H PRN ORAL Fever/Headache/Mild Pain 09/03/18 17:00 10/03/18 16:59 09/05/18 15:54 Al Hydroxide/Mg Hydroxide (Mylanta II) 30 ml Q6H PRN ORAL dyspepsia 09/02/18 20:27 09/27/18 20:26 Ceftriaxone Sodium 1 gm/ Dextrose 55 ml @ 110 mls/hr Q24H IVPB 09/03/18 20:00 09/10/18 19:59 09/04/18 20:45 Chlorhexidine Gluconate (Sierra-Hex 2%) 1 applic DAILY@2000 TOPIC 09/02/18 20:00 09/18/18 19:59 09/04/18 20:46 Dextrose (Dextrose 50%) 25 ml Q30M PRN IV Hypoglycemia 09/02/18 20:28 09/23/18 20:27 Dextrose (Dextrose 50%) 50 ml Q30M PRN IV Hypoglycemia 09/02/18 20:28 09/16/18 20:27 Lactulose (Cephulac) 30 gm EVERY 6 HOURS ORAL 09/03/18 00:00 09/16/18 11:59 09/05/18 11:53 Morphine Sulfate (Morphine Sulfate) 2 mg Q4H PRN IVP For Pain 09/02/18 20:29 09/06/18 20:28 09/05/18 11:54 Ondansetron HCl (Zofran) 4 mg Q6H PRN IVP Nausea & Vomiting 09/02/18 20:28 09/27/18 20:27 Pantoprazole (Protonix) 40 mg DAILY IVP 09/03/18 09:00 09/24/18 05:59 09/05/18 10:25 Vancomycin HCl (Vanco rx to dose) 1 ea DAILY PRN MISC Per rx protocol 09/03/18 17:15 10/03/18 17:14 Laz Monroy MD Sep 05, 2018 18:02
[2018-09-05 20:00] VITALS: BP 119/62
[2018-09-05] MEDS: Meropenem 1 GM in NS 55 ML IVPB SCH (21:16)
[2018-09-05] MEDS: Dyna-Hex 2% Top Sol 2oz TOPIC SCH (21:16)
[2018-09-06 04:00] VITALS: BP 113/65
[2018-09-06] MEDS: Lactulose 20gm/30ml UDC ORAL SCH ×4 (05:45→16:54)
[2018-09-06] MEDS: Morphine Sulfate 2mg/ml Inj IVP PRN ×2 (05:52→14:25)
[2018-09-06 05:54] LABS: HEMATOCRIT 24.2 % (37.0-47.0); HEMOGLOBIN 8.2 G/DL (12.0-16.0); MEAN CORPUSCULAR VOLUME 94 FL (80-99); PLATELET COUNT 89 K/UL (150-450); RED BLOOD COUNT 2.58 M/UL (4.20-5.40); RED CELL DISTRIBUTION WIDTH 17.6 % (11.6-14.8); WHITE BLOOD COUNT 10.4 K/UL (4.8-10.8)
[2018-09-06 06:12] LABS: ANION GAP 11 mmol/L (5-15); BLOOD UREA NITROGEN 37 mg/dL (7-18); CALCIUM 8.7 MG/DL (8.5-10.1); CARBON DIOXIDE 23 MMOL/L (21-32); CHLORIDE 104 MMOL/L (98-107); CREATININE 2.8 MG/DL (0.55-1.30); POTASSIUM 3.4 MMOL/L (3.5-5.1); SODIUM 138 MMOL/L (136-145)
[2018-09-06 08:00] VITALS: BP 123/66
--- NOTE | 2018-09-06 09:06 | Nephrology Progress Note ---
Assessment/Plan Assessment/Plan 1. ESRD- multifact ATN ( hypotension/intravasc vol dep/?hepatorenal/Anemia) - HD tomorrow - awaiting out patient placement 2. Hypok+- replacing today 3. 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 GI Bleed/Anemia- per GI mgmt - prn blood tx Hgb <7 Subjective Date patient seen: Sep 06, 2018 Time patient seen: 08:57 ROS Limited/Unobtainable: No Constitutional: Reports: weakness Allergies: Coded Allergies: LORAZEPAM (Verified Allergy, Unknown, 05/21/18) PENICILLINS (Verified Allergy, Unknown, 05/21/18) Subjective Patient resting comfortably in no acute distress Objective Last 24 Hour Vital Signs Date Time Temp Pulse Resp B/P (MAP) Pulse Ox O2 Delivery O2 Flow Rate FiO2 09/06/18 04:00 99.7 96 18 113/65 (81) 96 09/06/18 00:00 09/05/18 21:00 Room Air 09/05/18 20:00 99.6 96 18 119/62 (81) 96 09/05/18 19:46 100.0 09/05/18 18:45 100.0 09/05/18 15:26 101.3 97 20 115/68 (84) 96 09/05/18 11:25 99.7 100 20 115/65 (82) 96 09/05/18 09:00 Room Air Intake and Output 09/05/18 09/06/18 18:59 06:59 Intake Total 360 ml 55 ml Output Total 500 ml 600 ml Balance -140 ml -545 ml Intake Oral 360 ml IV Total 55 ml Output Urine Total 200 ml 600 ml Stool Total 300 ml Laboratory Tests 09/06/18 05:15: White Blood Count 10.4, Red Blood Count 2.58L, Hemoglobin 8.2L, Hematocrit 24.2L , Mean Corpuscular Volume 94, Mean Corpuscular Hemoglobin 31.8H, Mean Corpuscular Hemoglobin Concent 34.0, Red Cell Distribution Width 17.6H, Platelet Count 89L, Mean Platelet Volume 8.5, Neutrophils (%) (Auto) , Lymphocytes (%) (Auto) , Monocytes (%) (Auto) , Eosinophils (%) (Auto) , Basophils (%) (Auto) , Neutrophils % (Manual) [Pending], Lymphocytes % (Manual) [Pending], Platelet Estimate [Pending], Platelet Morphology [Pending], Sodium Level 138, Potassium Level 3.4L, Chloride Level 104, Carbon Dioxide Level 23, Anion Gap 11, Blood Urea Nitrogen 37H, Creatinine 2.8H, Estimat Glomerular Filtration Rate 19.1, Glucose Level 110H, Calcium Level 8.7 Height (Feet): 5 Height (Inches): 3.00 Weight (Pounds): 323 General Appearance: no apparent distress, alert EENT: normal ENT inspection, TMs normal Neck: normal alignment, supple Cardiovascular: normal rate, regular rhythm Respiratory/Chest: lungs clear, normal breath sounds Abdomen: non tender, soft Edema: no edema noted Arm (L), no edema noted Arm (R), no edema noted Leg (L), no edema noted Leg (R), no edema noted Pedal (L), no edema noted Pedal (R), no edema noted Generalized Amos Pinon MD Sep 06, 2018 09:06
[2018-09-06] MEDS: Pantoprazole Inj IVP SCH (09:26)
[2018-09-06] MEDS: Meropenem 1 GM in NS 55 ML IVPB SCH ×2 (09:27→19:59)
--- NOTE | 2018-09-06 11:01 | General Progress Note ---
Assessment/Plan Status: stable Assessment/Plan # Thrombocytopenia. Baseline appears to be 50-80k. Is most likely related to underlying liver disease with e/o portal htn. Hx of ETOH use. She does have evidence of hepatic cirrhosis, with surface nodularity an increased echogenicity. Evidence of portal hypertension, with ascites, splenomegaly, and flow reversal within the main and right portal vein. Evidence of prior cholecystectomy. Negative for dilated ducts. Prior CT and US has been reviewed, hepatitis and hiv are both negative. --> Plt count has been improving. --> Peripheral smear ordered and is negative for blasts --> Abx and other meds have been reviewed. --> hold off heparin, asa, or plavix --> Transfuse plts if plt count >10k or if 20k and with fever, or >50k if bleeding --> Agree with lactulose and potential rifaximin for elev ammonia --> PLT Tx: 08/31 # Coagulopathy is likely related to underlying liver disease, liver us shows "Evidence of chronic liver disease with enlarged fatty liver and stigmata of portal hypertension including hepatofugal portal venous flow." --> no evidence of bleeding, hold off on tx unless bleeding is noted --> VIt K or ffp before a procedure # Anemia due to gastrointestinal bleed. Hemoglobin on admission 5-8 range, likely bleed related, ferritin is 1125 --> Gastroenterology is following. Appreciate recs. --> Hgb goal >7. Transfuse prn. --> 09/02: s/p EGD >> Esophageal varices, status post banding x7. # Anemia of chronic disease, multifactorial. Since admission hgb has consistently been 7-8.5 --> Previous w/u has been reviewed --> Will trend CBC daily --> Hgb goal above 7 --> Blood tx: 08/17,08/18, 08/19, 08/23, 08/25, 08/29, 08/31, 09/01, 09/02, # Acute kidney injury secondary to intravascular volume depletion along with ischemic acute tubular necrosis from hypotension. --> Nephro following. Appreciate recs. # Hyperkalemia secondary to renal insufficiency and gastrointestinal bleed. --> The patient was given Kayexalate 60 g already. 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 Subjective Date patient seen: Sep 06, 2018 ROS Limited/Unobtainable: Yes Constitutional: Reports: fever Hematologic/Lymphatic: Reports: anemia Allergies: Coded Allergies: LORAZEPAM (Verified Allergy, Unknown, 05/21/18) PENICILLINS (Verified Allergy, Unknown, 05/21/18) Subjective Pt awake and alert. Febrile overnight. H/H stable. DC planning. Objective Last 24 Hour Vital Signs Date Time Temp Pulse Resp B/P (MAP) Pulse Ox O2 Delivery O2 Flow Rate FiO2 09/06/18 08:00 99.5 95 18 123/66 (85) 97 09/06/18 04:00 99.7 96 18 113/65 (81) 96 09/06/18 00:00 09/05/18 21:00 Room Air 09/05/18 20:00 99.6 96 18 119/62 (81) 96 09/05/18 19:46 100.0 09/05/18 18:45 100.0 09/05/18 15:26 101.3 97 20 115/68 (84) 96 09/05/18 11:25 99.7 100 20 115/65 (82) 96 Intake and Output 09/05/18 09/06/18 18:59 06:59 Intake Total 360 ml 55 ml Output Total 500 ml 600 ml Balance -140 ml -545 ml Intake Oral 360 ml IV Total 55 ml Output Urine Total 200 ml 600 ml Stool Total 300 ml Laboratory Tests 09/06/18 05:15: White Blood Count 10.4, Red Blood Count 2.58L, Hemoglobin 8.2L, Hematocrit 24.2L , Mean Corpuscular Volume 94, Mean Corpuscular Hemoglobin 31.8H, Mean Corpuscular Hemoglobin Concent 34.0, Red Cell Distribution Width 17.6H, Platelet Count 89L, Mean Platelet Volume 8.5, Neutrophils (%) (Auto) , Lymphocytes (%) (Auto) , Monocytes (%) (Auto) , Eosinophils (%) (Auto) , Basophils (%) (Auto) , Differential Total Cells Counted 100, Neutrophils % ( Manual) 74, Lymphocytes % (Manual) 11L, Monocytes % (Manual) 12H, Eosinophils % (Manual) 2, Basophils % (Manual) 1, Band Neutrophils 0, Platelet Estimate DecreasedL, Platelet Morphology Normal, Sodium Level 138, Potassium Level 3.4L, Chloride Level 104, Carbon Dioxide Level 23, Anion Gap 11, Blood Urea Nitrogen 37H, Creatinine 2.8H, Estimat Glomerular Filtration Rate 19.1, Glucose Level 110H, Calcium Level 8.7 Height (Feet): 5 Height (Inches): 3.00 Weight (Pounds): 323 General Appearance: no apparent distress EENT: PERRL/EOMI Neck: normal alignment Cardiovascular: normal peripheral pulses Respiratory/Chest: no respiratory distress Abdomen: normal bowel sounds, soft Objective stahl, and rectal tube++ Michael Hernandez MD Sep 06, 2018 11:01
--- NOTE | 2018-09-06 11:40 | GI Progress Note ---
Assessment/Plan Problems: (1) Ascites ICD Codes: R18.8 - Other ascites SNOMED: 981661812 (2) Alcoholic cirrhosis ICD Codes: K70.30 - Alcoholic cirrhosis of liver without ascites SNOMED: 416124752 (3) Esophageal varices ICD Codes: I85.00 - Esophageal varices without bleeding SNOMED: 48853183 (4) Anemia ICD Codes: D64.9 - Anemia, unspecified SNOMED: 996270416 (5) Chronic renal insufficiency ICD Codes: N18.9 - Chronic kidney disease, unspecified SNOMED: 969043341 (6) Coagulopathy ICD Codes: D68.9 - Coagulation defect, unspecified SNOMED: 11458084 (7) Hemorrhagic shock ICD Codes: R57.8 - Other shock SNOMED: 920655 (8) GI bleed ICD Codes: K92.2 - Gastrointestinal hemorrhage, unspecified SNOMED: 71815670 Status: stable Status Narrative Discussed with Dr. Rodriguez. Assessment/Plan s/p EGD >> Esophageal varices, status post banding x7. more awake and alert, ST evaluation >> passed RECOMMENDATIONS: on renal diet, tolerating ppi BID transfuse prn lactulose + Xifaxan very poor prognosis portal HTN management with propranolol fu labs dc planning The patient was seen and examined at bedside and all new and available data was reviewed in the patients chart. I agree with the above findings, impression and plan. (Patient seen earlier today. Signature stamp does not reflect patient encounter time.). - Christopher Rodriguez MD Subjective Subjective abdominal pain fatigue Objective Last 24 Hour Vital Signs Date Time Temp Pulse Resp B/P (MAP) Pulse Ox O2 Delivery O2 Flow Rate FiO2 09/06/18 09:00 Room Air 09/06/18 08:00 99.5 95 18 123/66 (85) 97 09/06/18 04:00 99.7 96 18 113/65 (81) 96 09/06/18 00:00 09/05/18 21:00 Room Air 09/05/18 20:00 99.6 96 18 119/62 (81) 96 09/05/18 19:46 100.0 09/05/18 18:45 100.0 09/05/18 15:26 101.3 97 20 115/68 (84) 96 Intake and Output 09/05/18 09/06/18 18:59 06:59 Intake Total 360 ml 55 ml Output Total 500 ml 600 ml Balance -140 ml -545 ml Intake Oral 360 ml IV Total 55 ml Output Urine Total 200 ml 600 ml Stool Total 300 ml Laboratory Tests Test 09/06/18 05:15 White Blood Count 10.4 K/UL (4.8-10.8) Red Blood Count 2.58 M/UL (4.20-5.40) L Hemoglobin 8.2 G/DL (12.0-16.0) L Hematocrit 24.2 % (37.0-47.0) L Mean Corpuscular Volume 94 FL (80-99) Mean Corpuscular Hemoglobin 31.8 PG (27.0-31.0) H Mean Corpuscular Hemoglobin Concent 34.0 G/DL (32.0-36.0) Red Cell Distribution Width 17.6 % (11.6-14.8) H Platelet Count 89 K/UL (150-450) L Mean Platelet Volume 8.5 FL (6.5-10.1) Neutrophils (%) (Auto) % (45.0-75.0) Lymphocytes (%) (Auto) % (20.0-45.0) Monocytes (%) (Auto) % (1.0-10.0) Eosinophils (%) (Auto) % (0.0-3.0) Basophils (%) (Auto) % (0.0-2.0) Differential Total Cells Counted 100 Neutrophils % (Manual) 74 % (45-75) Lymphocytes % (Manual) 11 % (20-45) L Monocytes % (Manual) 12 % (1-10) H Eosinophils % (Manual) 2 % (0-3) Basophils % (Manual) 1 % (0-2) Band Neutrophils 0 % (0-8) Platelet Estimate Decreased L Platelet Morphology Normal Sodium Level 138 MMOL/L (136-145) Potassium Level 3.4 MMOL/L (3.5-5.1) L Chloride Level 104 MMOL/L (98-107) Carbon Dioxide Level 23 MMOL/L (21-32) Anion Gap 11 mmol/L (5-15) Blood Urea Nitrogen 37 mg/dL (7-18) H Creatinine 2.8 MG/DL (0.55-1.30) H Estimat Glomerular Filtration Rate 19.1 mL/min (>60) Glucose Level 110 MG/DL (74-106) H Calcium Level 8.7 MG/DL (8.5-10.1) Height (Feet): 5 Height (Inches): 3.00 Weight (Pounds): 323 General Appearance: alert Cardiovascular: normal rate Respiratory/Chest: normal breath sounds, no respiratory distress Abdominal Exam: normal bowel sounds, non tender, soft Extremities: normal range of motion Objective generalized edema Markus Lebron FRIEND OF THE COURT Sep 06, 2018 11:40
--- NOTE | 2018-09-06 11:40 | General Progress Note ---
Assessment/Plan Problem List: (1) Edema ICD Codes: R60.9 - Edema, unspecified SNOMED: 434621855, 636264108 (2) Anemia ICD Codes: D64.9 - Anemia, unspecified SNOMED: 286242787 (3) Alcoholic cirrhosis ICD Codes: K70.30 - Alcoholic cirrhosis of liver without ascites SNOMED: 179845441 (4) Esophageal varices ICD Codes: I85.00 - Esophageal varices without bleeding SNOMED: 40471974 (5) Leukocytosis ICD Codes: D72.829 - Elevated white blood cell count, unspecified SNOMED: 940108406, 409164276 (6) GI bleed ICD Codes: K92.2 - Gastrointestinal hemorrhage, unspecified SNOMED: 03997884 (7) LENI (acute kidney injury) ICD Codes: N17.9 - Acute kidney failure, unspecified SNOMED: 86597827 (8) Sepsis ICD Codes: A41.9 - Sepsis, unspecified organism SNOMED: 71049389 (9) Seizure ICD Codes: R56.9 - Unspecified convulsions SNOMED: 15903877 Status: unchanged Assessment/Plan abx oe pulm tx transfuse prn gi heme f/u dialysis prn seizure control cbc bmp am promise ltach if clear Subjective Constitutional: Reports: weakness Respiratory: Reports: shortness of breath Allergies: Coded Allergies: LORAZEPAM (Verified Allergy, Unknown, 05/21/18) PENICILLINS (Verified Allergy, Unknown, 05/21/18) All Systems: reviewed and negative except above Subjective sleepy calm in bed Objective Last 24 Hour Vital Signs Date Time Temp Pulse Resp B/P (MAP) Pulse Ox O2 Delivery O2 Flow Rate FiO2 09/06/18 09:00 Room Air 09/06/18 08:00 99.5 95 18 123/66 (85) 97 09/06/18 04:00 99.7 96 18 113/65 (81) 96 09/06/18 00:00 09/05/18 21:00 Room Air 09/05/18 20:00 99.6 96 18 119/62 (81) 96 09/05/18 19:46 100.0 09/05/18 18:45 100.0 09/05/18 15:26 101.3 97 20 115/68 (84) 96 Intake and Output 09/05/18 09/06/18 18:59 06:59 Intake Total 360 ml 55 ml Output Total 500 ml 600 ml Balance -140 ml -545 ml Intake Oral 360 ml IV Total 55 ml Output Urine Total 200 ml 600 ml Stool Total 300 ml Laboratory Tests 09/06/18 05:15: White Blood Count 10.4, Red Blood Count 2.58L, Hemoglobin 8.2L, Hematocrit 24.2L , Mean Corpuscular Volume 94, Mean Corpuscular Hemoglobin 31.8H, Mean Corpuscular Hemoglobin Concent 34.0, Red Cell Distribution Width 17.6H, Platelet Count 89L, Mean Platelet Volume 8.5, Neutrophils (%) (Auto) , Lymphocytes (%) (Auto) , Monocytes (%) (Auto) , Eosinophils (%) (Auto) , Basophils (%) (Auto) , Differential Total Cells Counted 100, Neutrophils % ( Manual) 74, Lymphocytes % (Manual) 11L, Monocytes % (Manual) 12H, Eosinophils % (Manual) 2, Basophils % (Manual) 1, Band Neutrophils 0, Platelet Estimate DecreasedL, Platelet Morphology Normal, Sodium Level 138, Potassium Level 3.4L, Chloride Level 104, Carbon Dioxide Level 23, Anion Gap 11, Blood Urea Nitrogen 37H, Creatinine 2.8H, Estimat Glomerular Filtration Rate 19.1, Glucose Level 110H, Calcium Level 8.7 Height (Feet): 5 Height (Inches): 3.00 Weight (Pounds): 323 General Appearance: lethargic EENT: normal ENT inspection Neck: normal alignment Cardiovascular: normal peripheral pulses, normal rate, regular rhythm Respiratory/Chest: chest wall non-tender, decreased breath sounds Abdomen: normal bowel sounds, non tender, soft Edema: 1+ Arm (L), 1+ Arm (R), 1+ Leg (L), 1+ Leg (R), 1+ Pedal (L), 1+ Pedal ( R), 1+ Generalized Edema: mild edema Neurologic: motor weakness Skin: normal pigmentation, warm/dry Chauncey Fuentes DO Sep 06, 2018 11:40
[2018-09-06 12:00] VITALS: BP 119/64
--- NOTE | 2018-09-06 14:32 | Pulmonology Progress Note ---
Assessment/Plan Problems: (1) Acute encephalopathy (2) LENI (acute kidney injury) (3) ATN (acute tubular necrosis) (4) Coagulopathy (5) Esophageal varices (6) Alcoholic cirrhosis (7) End stage liver disease Assessment/Plan no new complains continues to improve supportive care more awake, eating on Lactulose check ammonia level on abx check h/h, fever yesterday, ID following Subjective ROS Limited/Unobtainable: No Constitutional: Reports: no symptoms HEENT: Repors: no symptoms Respiratory: Reports: no symptoms Allergies: Coded Allergies: LORAZEPAM (Verified Allergy, Unknown, 05/21/18) PENICILLINS (Verified Allergy, Unknown, 05/21/18) Objective Last 24 Hour Vital Signs Date Time Temp Pulse Resp B/P (MAP) Pulse Ox O2 Delivery O2 Flow Rate FiO2 09/06/18 12:00 98.2 95 18 119/64 (82) 97 09/06/18 09:00 Room Air 09/06/18 08:00 99.5 95 18 123/66 (85) 97 09/06/18 04:00 99.7 96 18 113/65 (81) 96 09/06/18 00:00 09/05/18 21:00 Room Air 09/05/18 20:00 99.6 96 18 119/62 (81) 96 09/05/18 19:46 100.0 09/05/18 18:45 100.0 09/05/18 15:26 101.3 97 20 115/68 (84) 96 Intake and Output 09/05/18 09/06/18 19:00 07:00 Intake Total 360 ml 55 ml Output Total 500 ml 600 ml Balance -140 ml -545 ml Intake Oral 360 ml IV Total 55 ml Output Urine Total 200 ml 600 ml Stool Total 300 ml General Appearance: WD/WN HEENT: normocephalic, atraumatic Respiratory/Chest: chest wall non-tender, no respiratory distress Cardiovascular: normal peripheral pulses, normal rate Abdomen: normal bowel sounds, soft, non tender Genitourinary: normal external genitalia Extremities: no clubbing Skin: no lesions Microbiology Date/Time Source Procedure Growth Status 09/03/18 18:15 Blood Blood Culture - Preliminary NO GROWTH AFTER 48 HOURS Resulted 09/03/18 17:50 Blood Blood Culture - Preliminary NO GROWTH AFTER 48 HOURS Resulted 09/03/18 17:30 Indwelling Cath Urine Culture - Preliminary Resulted Laboratory Tests 09/06/18 05:15: White Blood Count 10.4, Red Blood Count 2.58L, Hemoglobin 8.2L, Hematocrit 24.2L , Mean Corpuscular Volume 94, Mean Corpuscular Hemoglobin 31.8H, Mean Corpuscular Hemoglobin Concent 34.0, Red Cell Distribution Width 17.6H, Platelet Count 89L, Mean Platelet Volume 8.5, Neutrophils (%) (Auto) , Lymphocytes (%) (Auto) , Monocytes (%) (Auto) , Eosinophils (%) (Auto) , Basophils (%) (Auto) , Differential Total Cells Counted 100, Neutrophils % ( Manual) 74, Lymphocytes % (Manual) 11L, Monocytes % (Manual) 12H, Eosinophils % (Manual) 2, Basophils % (Manual) 1, Band Neutrophils 0, Platelet Estimate DecreasedL, Platelet Morphology Normal, Sodium Level 138, Potassium Level 3.4L, Chloride Level 104, Carbon Dioxide Level 23, Anion Gap 11, Blood Urea Nitrogen 37H, Creatinine 2.8H, Estimat Glomerular Filtration Rate 19.1, Glucose Level 110H, Calcium Level 8.7 Current Medications Medications (Trade) Dose Ordered Sig/Abner Route PRN Reason Start Time Stop Time Status Last Admin Dose Admin Acetaminophen (Tylenol) 650 mg Q4H PRN ORAL Fever/Headache/Mild Pain 09/03/18 17:00 10/03/18 16:59 09/05/18 15:54 Al Hydroxide/Mg Hydroxide (Mylanta II) 30 ml Q6H PRN ORAL dyspepsia 09/02/18 20:27 09/27/18 20:26 Chlorhexidine Gluconate (Sierra-Hex 2%) 1 applic DAILY@1999 TOPIC 09/02/18 20:00 09/18/18 19:59 09/05/18 21:16 Dextrose (Dextrose 50%) 25 ml Q30M PRN IV Hypoglycemia 09/02/18 20:28 09/23/18 20:27 Dextrose (Dextrose 50%) 50 ml Q30M PRN IV Hypoglycemia 09/02/18 20:28 09/16/18 20:27 Lactulose (Cephulac) 30 gm EVERY 6 HOURS ORAL 09/03/18 00:00 09/16/18 11:59 09/06/18 05:45 Meropenem 1 gm/ Sodium Chloride 55 ml @ 110 mls/hr Q12HR IVPB 09/05/18 20:00 09/10/18 19:59 09/06/18 09:27 Morphine Sulfate (Morphine Sulfate) 2 mg Q4H PRN IVP For Pain 09/02/18 20:29 09/06/18 20:28 09/06/18 14:25 Ondansetron HCl (Zofran) 4 mg Q6H PRN IVP Nausea & Vomiting 09/02/18 20:28 09/27/18 20:27 Pantoprazole (Protonix) 40 mg DAILY IVP 09/03/18 09:00 09/24/18 05:59 09/06/18 09:26 Vancomycin HCl (Vanco rx to dose) 1 ea DAILY PRN MISC Per rx protocol 09/03/18 17:15 10/03/18 17:14 Jose Roberto Burleson MD Sep 06, 2018 14:32
[2018-09-06 16:00] VITALS: BP 130/69
[2018-09-06] MEDS: Dyna-Hex 2% Top Sol 2oz TOPIC SCH (19:59)
[2018-09-06 20:00] VITALS: BP 102/58
--- NOTE | 2018-09-06 20:46 | Infectious Diseases Prog Note ---
Assessment/Plan Assessment/Plan Assessment/Plan The patient is a 38-year-old female with: Fever, Sp Probable sepsis, SP -Bcx neg Leukocytosis; SP -CXR: Pulmonary vascular congestion with increased interstitial markings , likely representing interstitial edema. This appears improved relative to the chest x-ray from 07/22/18 Urinary tract infection, 09/02 sp UCx: Kleb : Ucx: P ; ucx ESBL K. pna ( R zosyn, S ertapenem), Citrobacter freundi (R ancef, I Impienem, S ertapenem) History of hepatitis panel and HIV serology negative. Diarrhea on lactulose GIB -s/p EGD 08/19: esophageal varices Seizures episodes 08/24 (?related to carbapenem) Acute renal insufficiency.; on HD -Renal US: unremarkable Thrombocytopenia S/p permacath placement 08/30,now w/ bleeding from site Encephalopathy, multifactorial, ongoin -. Alcoholic cirrhosis -. Esophageal varices PLAN: -Continue Vanco d# 4 and add Merrem d# 2 09/05 SP Rocephin d# 3 -08/25 SP Ertapenem #7 -08/19 SP Cefepime and Flagyl #3 -.Monitor BMP -.Renal, GI f/u - seizure precautions - aspiration precautions - Blood and Urine Cx Subjective Allergies: Coded Allergies: LORAZEPAM (Verified Allergy, Unknown, 05/21/18) PENICILLINS (Verified Allergy, Unknown, 05/21/18) Subjective febrile Objective Vital Signs Last 24 Hour Vital Signs Date Time Temp Pulse Resp B/P (MAP) Pulse Ox O2 Delivery O2 Flow Rate FiO2 09/06/18 20:00 99.5 93 20 102/58 (73) 96 09/06/18 16:00 98.2 94 18 130/69 (89) 97 09/06/18 12:00 98.2 95 18 119/64 (82) 97 09/06/18 09:00 Room Air 09/06/18 08:00 99.5 95 18 123/66 (85) 97 09/06/18 04:00 99.7 96 18 113/65 (81) 96 09/06/18 00:00 09/05/18 21:00 Room Air Height (Feet): 5 Height (Inches): 3.00 Weight (Pounds): 323 HEENT: anicteric Respiratory/Chest: no accessory muscle use Cardiovascular: no gallop/murmur Abdomen: no organomegaly Laboratory Tests Test 09/06/18 05:15 White Blood Count 10.4 K/UL (4.8-10.8) Red Blood Count 2.58 M/UL (4.20-5.40) L Hemoglobin 8.2 G/DL (12.0-16.0) L Hematocrit 24.2 % (37.0-47.0) L Mean Corpuscular Volume 94 FL (80-99) Mean Corpuscular Hemoglobin 31.8 PG (27.0-31.0) H Mean Corpuscular Hemoglobin Concent 34.0 G/DL (32.0-36.0) Red Cell Distribution Width 17.6 % (11.6-14.8) H Platelet Count 89 K/UL (150-450) L Mean Platelet Volume 8.5 FL (6.5-10.1) Neutrophils (%) (Auto) % (45.0-75.0) Lymphocytes (%) (Auto) % (20.0-45.0) Monocytes (%) (Auto) % (1.0-10.0) Eosinophils (%) (Auto) % (0.0-3.0) Basophils (%) (Auto) % (0.0-2.0) Differential Total Cells Counted 100 Neutrophils % (Manual) 74 % (45-75) Lymphocytes % (Manual) 11 % (20-45) L Monocytes % (Manual) 12 % (1-10) H Eosinophils % (Manual) 2 % (0-3) Basophils % (Manual) 1 % (0-2) Band Neutrophils 0 % (0-8) Platelet Estimate Decreased L Platelet Morphology Normal Sodium Level 138 MMOL/L (136-145) Potassium Level 3.4 MMOL/L (3.5-5.1) L Chloride Level 104 MMOL/L (98-107) Carbon Dioxide Level 23 MMOL/L (21-32) Anion Gap 11 mmol/L (5-15) Blood Urea Nitrogen 37 mg/dL (7-18) H Creatinine 2.8 MG/DL (0.55-1.30) H Estimat Glomerular Filtration Rate 19.1 mL/min (>60) Glucose Level 110 MG/DL (74-106) H Calcium Level 8.7 MG/DL (8.5-10.1) Current Medications Medications (Trade) Dose Ordered Sig/Abner Route PRN Reason Start Time Stop Time Status Last Admin Dose Admin Acetaminophen (Tylenol) 650 mg Q4H PRN ORAL Fever/Headache/Mild Pain 09/03/18 17:00 10/03/18 16:59 09/05/18 15:54 Al Hydroxide/Mg Hydroxide (Mylanta II) 30 ml Q6H PRN ORAL dyspepsia 09/02/18 20:27 09/27/18 20:26 Chlorhexidine Gluconate (Sierra-Hex 2%) 1 applic DAILY@2000 TOPIC 09/02/18 20:00 09/18/18 19:59 09/06/18 19:59 Dextrose (Dextrose 50%) 25 ml Q30M PRN IV Hypoglycemia 09/02/18 20:28 09/23/18 20:27 Dextrose (Dextrose 50%) 50 ml Q30M PRN IV Hypoglycemia 09/02/18 20:28 09/16/18 20:27 Lactulose (Cephulac) 30 gm EVERY 6 HOURS ORAL 09/03/18 00:00 09/16/18 11:59 09/06/18 05:45 Meropenem 1 gm/ Sodium Chloride 55 ml @ 110 mls/hr Q12HR IVPB 09/05/18 20:00 09/10/18 19:59 09/06/18 19:59 Ondansetron HCl (Zofran) 4 mg Q6H PRN IVP Nausea & Vomiting 09/02/18 20:28 09/27/18 20:27 Pantoprazole (Protonix) 40 mg DAILY IVP 09/03/18 09:00 09/24/18 05:59 09/06/18 09:26 Vancomycin HCl (Vanco rx to dose) 1 ea DAILY PRN MISC Per rx protocol 09/03/18 17:15 10/03/18 17:14 Laz Monroy MD Sep 06, 2018 20:46
[2018-09-07] VITALS: BP 112/55
[2018-09-07 04:00] VITALS: BP_SYST 124; BP_SYST 152; BP_DIAS 66; BP_DIAS 75
[2018-09-07] MEDS: Morphine Sulfate 2mg/ml Inj IVP PRN ×3 (04:04→17:33)
[2018-09-07] MEDS: Lactulose 20gm/30ml UDC ORAL SCH ×4 (05:25→18:00)
[2018-09-07 07:30] LABS: HEMATOCRIT 23.2 % (37.0-47.0); HEMOGLOBIN 7.7 G/DL (12.0-16.0); MEAN CORPUSCULAR VOLUME 94 FL (80-99); PLATELET COUNT 89 K/UL (150-450); RED BLOOD COUNT 2.46 M/UL (4.20-5.40); RED CELL DISTRIBUTION WIDTH 17.8 % (11.6-14.8); WHITE BLOOD COUNT 10.1 K/UL (4.8-10.8)
[2018-09-07 07:42] LABS: ALANINE AMINOTRANSFERASE 16 U/L (12-78); ALBUMIN 1.5 G/DL (3.4-5.0); ALBUMIN/GLOBULIN RATIO 0.3 (1.0-2.7); ALKALINE PHOSPHATASE 148 U/L (46-116); ANION GAP 10 mmol/L (5-15); ASPARTATE AMINO TRANSFERASE 40 U/L (15-37); BILIRUBIN,TOTAL 2.1 MG/DL (0.2-1.0); BLOOD UREA NITROGEN 39 mg/dL (7-18); CALCIUM 8.2 MG/DL (8.5-10.1); CARBON DIOXIDE 24 MMOL/L (21-32); CHLORIDE 103 MMOL/L (98-107); CREATININE 2.9 MG/DL (0.55-1.30); SODIUM 137 MMOL/L (136-145)
[2018-09-07 07:43] LABS: BILIRUBIN,DIRECT 1.3 MG/DL (0.0-0.3)
[2018-09-07 08:00] VITALS: BP 110/66
--- NOTE | 2018-09-07 08:02 | General Progress Note ---
Assessment/Plan Problem List: (1) Edema ICD Codes: R60.9 - Edema, unspecified SNOMED: 834386380, 327283459 (2) Anemia ICD Codes: D64.9 - Anemia, unspecified SNOMED: 040443078 (3) Alcoholic cirrhosis ICD Codes: K70.30 - Alcoholic cirrhosis of liver without ascites SNOMED: 883621871 (4) Esophageal varices ICD Codes: I85.00 - Esophageal varices without bleeding SNOMED: 44908089 (5) Leukocytosis ICD Codes: D72.829 - Elevated white blood cell count, unspecified SNOMED: 917543496, 343401774 (6) GI bleed ICD Codes: K92.2 - Gastrointestinal hemorrhage, unspecified SNOMED: 03166350 (7) LENI (acute kidney injury) ICD Codes: N17.9 - Acute kidney failure, unspecified SNOMED: 07787307 (8) Sepsis ICD Codes: A41.9 - Sepsis, unspecified organism SNOMED: 20908710 (9) Seizure ICD Codes: R56.9 - Unspecified convulsions SNOMED: 83444094 Status: unchanged Assessment/Plan abx oe pulm tx transfuse prn gi heme f/u dialysis prn seizure control cbc bmp am promise ltach if clear Subjective Constitutional: Reports: weakness Allergies: Coded Allergies: LORAZEPAM (Verified Allergy, Unknown, 05/21/18) PENICILLINS (Verified Allergy, Unknown, 05/21/18) All Systems: reviewed and negative except above Subjective sleepy calm in bed eating Objective Last 24 Hour Vital Signs Date Time Temp Pulse Resp B/P (MAP) Pulse Ox O2 Delivery O2 Flow Rate FiO2 09/07/18 07:29 97 Nasal Cannula 2.0 28 09/07/18 07:29 Nasal Cannula 2.0 28 09/07/18 04:00 97.9 87 20 124/66 (85) 95 09/07/18 00:00 99.3 89 20 112/55 (74) 97 09/06/18 21:00 Room Air 09/06/18 20:00 99.5 93 20 102/58 (73) 96 09/06/18 16:00 98.2 94 18 130/69 (89) 97 09/06/18 12:00 98.2 95 18 119/64 (82) 97 09/06/18 09:00 Room Air Intake and Output 09/06/18 09/07/18 19:00 07:00 Intake Total 820 ml 55 ml Output Total 1450 ml 250 ml Balance -630 ml -195 ml Intake Oral 610 ml IV Total 210 ml 55 ml Output Urine Total 450 ml 250 ml Stool Total 1000 ml Laboratory Tests 09/07/18 04:30: White Blood Count 10.1, Red Blood Count 2.46L, Hemoglobin 7.7L, Hematocrit 23.2L , Mean Corpuscular Volume 94, Mean Corpuscular Hemoglobin 31.2H, Mean Corpuscular Hemoglobin Concent 33.2, Red Cell Distribution Width 17.8H, Platelet Count 89L, Mean Platelet Volume 8.5, Neutrophils (%) (Auto) , Lymphocytes (%) (Auto) , Monocytes (%) (Auto) , Eosinophils (%) (Auto) , Basophils (%) (Auto) , Neutrophils % (Manual) [Pending], Lymphocytes % (Manual) [Pending], Platelet Estimate [Pending], Platelet Morphology [Pending], Sodium Level 137, Potassium Level 3.0L, Chloride Level 103, Carbon Dioxide Level 24, Anion Gap 10, Blood Urea Nitrogen 39H, Creatinine 2.9H, Estimat Glomerular Filtration Rate 18.3, Glucose Level 106, Calcium Level 8.2L, Total Bilirubin 2.1H, Direct Bilirubin 1.3H, Aspartate Amino Transf (AST/SGOT) 40H, Alanine Aminotransferase (ALT/SGPT) 16, Alkaline Phosphatase 148H, Total Protein 6.1L, Albumin 1.5L, Globulin 4.6, Albumin/Globulin Ratio 0.3L, Random Vancomycin Level 14.4 Height (Feet): 5 Height (Inches): 3.00 Weight (Pounds): 338 General Appearance: lethargic EENT: normal ENT inspection Neck: normal alignment Cardiovascular: normal peripheral pulses, normal rate, regular rhythm Respiratory/Chest: chest wall non-tender, decreased breath sounds Abdomen: normal bowel sounds, non tender, soft Extremities: normal inspection Edema: 2+ Arm (L), 2+ Arm (R), 2+ Leg (L), 2+ Leg (R), 2+ Pedal (L), 2+ Pedal ( R), 2+ Generalized Edema: mild edema Neurologic: responsive, abnormal cleaner and dyer II-XII Skin: normal pigmentation, warm/dry Chauncey Fuentes DO Sep 07, 2018 08:02
--- NOTE | 2018-09-07 08:11 | General Progress Note ---
Assessment/Plan Problem List: (1) Acute encephalopathy ICD Codes: G93.40 - Encephalopathy, unspecified SNOMED: 08768702, 764322409 (2) Ascites ICD Codes: R18.8 - Other ascites SNOMED: 620331646 (3) Alcoholic cirrhosis ICD Codes: K70.30 - Alcoholic cirrhosis of liver without ascites SNOMED: 310546335 (4) Esophageal varices ICD Codes: I85.00 - Esophageal varices without bleeding SNOMED: 46294536 (5) Anemia ICD Codes: D64.9 - Anemia, unspecified SNOMED: 434964790 (6) Coagulopathy ICD Codes: D68.9 - Coagulation defect, unspecified SNOMED: 40020324 Assessment/Plan s/p EGD >> Esophageal varices, status post banding x7. more awake and alert, ST evaluation >> passed RECOMMENDATIONS: on renal diet, tolerating ppi BID transfuse prn lactulose + Xifaxan very poor prognosis portal HTN management with propranolol fu labs dc planning plan EGD this week if still in house Subjective ROS Limited/Unobtainable: No Allergies: Coded Allergies: LORAZEPAM (Verified Allergy, Unknown, 05/21/18) PENICILLINS (Verified Allergy, Unknown, 05/21/18) Subjective altered transferred to icu due to SZ Objective Last 24 Hour Vital Signs Date Time Temp Pulse Resp B/P (MAP) Pulse Ox O2 Delivery O2 Flow Rate FiO2 09/07/18 07:29 97 Nasal Cannula 2.0 28 09/07/18 07:29 Nasal Cannula 2.0 28 09/07/18 04:00 97.9 87 20 124/66 (85) 95 09/07/18 00:00 99.3 89 20 112/55 (74) 97 09/06/18 21:00 Room Air 09/06/18 20:00 99.5 93 20 102/58 (73) 96 09/06/18 16:00 98.2 94 18 130/69 (89) 97 09/06/18 12:00 98.2 95 18 119/64 (82) 97 09/06/18 09:00 Room Air Intake and Output 09/06/18 09/07/18 19:00 07:00 Intake Total 820 ml 55 ml Output Total 1450 ml 250 ml Balance -630 ml -195 ml Intake Oral 610 ml IV Total 210 ml 55 ml Output Urine Total 450 ml 250 ml Stool Total 1000 ml Laboratory Tests 09/07/18 04:30: White Blood Count 10.1, Red Blood Count 2.46L, Hemoglobin 7.7L, Hematocrit 23.2L , Mean Corpuscular Volume 94, Mean Corpuscular Hemoglobin 31.2H, Mean Corpuscular Hemoglobin Concent 33.2, Red Cell Distribution Width 17.8H, Platelet Count 89L, Mean Platelet Volume 8.5, Neutrophils (%) (Auto) , Lymphocytes (%) (Auto) , Monocytes (%) (Auto) , Eosinophils (%) (Auto) , Basophils (%) (Auto) , Neutrophils % (Manual) [Pending], Lymphocytes % (Manual) [Pending], Platelet Estimate [Pending], Platelet Morphology [Pending], Sodium Level 137, Potassium Level 3.0L, Chloride Level 103, Carbon Dioxide Level 24, Anion Gap 10, Blood Urea Nitrogen 39H, Creatinine 2.9H, Estimat Glomerular Filtration Rate 18.3, Glucose Level 106, Calcium Level 8.2L, Total Bilirubin 2.1H, Direct Bilirubin 1.3H, Aspartate Amino Transf (AST/SGOT) 40H, Alanine Aminotransferase (ALT/SGPT) 16, Alkaline Phosphatase 148H, Total Protein 6.1L, Albumin 1.5L, Globulin 4.6, Albumin/Globulin Ratio 0.3L, Random Vancomycin Level 14.4 Height (Feet): 5 Height (Inches): 3.00 Weight (Pounds): 338 General Appearance: no apparent distress EENT: normal ENT inspection Neck: supple Cardiovascular: normal rate Respiratory/Chest: decreased breath sounds Abdomen: normal bowel sounds, non tender, soft Extremities: non-tender Christopher Rodriguez MD Sep 07, 2018 08:11
[2018-09-07] MEDS: Pantoprazole Inj IVP SCH (09:08)
[2018-09-07] MEDS: Meropenem 1 GM in NS 55 ML IVPB SCH ×2 (09:09→20:44)
--- NOTE | 2018-09-07 09:15 | Nephrology Progress Note ---
Assessment/Plan Assessment/Plan 1. ESRD- multifact ATN ( hypotension/intravasc vol dep/?hepatorenal/Anemia) - HD held today. Good UOP - monitor 2. Hypok+- replacing today again 3. 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 GI Bleed/Anemia- per GI mgmt - prn blood tx Hgb <7 Subjective Date patient seen: Sep 07, 2018 Time patient seen: 09:09 ROS Limited/Unobtainable: No Allergies: Coded Allergies: LORAZEPAM (Verified Allergy, Unknown, 05/21/18) PENICILLINS (Verified Allergy, Unknown, 05/21/18) Subjective Patient resting. Awake and coherent Objective Last 24 Hour Vital Signs Date Time Temp Pulse Resp B/P (MAP) Pulse Ox O2 Delivery O2 Flow Rate FiO2 09/07/18 07:29 97 Nasal Cannula 2.0 28 09/07/18 07:29 Nasal Cannula 2.0 28 09/07/18 04:00 97.9 87 20 124/66 (85) 95 09/07/18 00:00 99.3 89 20 112/55 (74) 97 09/06/18 21:00 Room Air 09/06/18 20:00 99.5 93 20 102/58 (73) 96 09/06/18 16:00 98.2 94 18 130/69 (89) 97 09/06/18 12:00 98.2 95 18 119/64 (82) 97 Intake and Output 09/06/18 09/07/18 19:00 07:00 Intake Total 820 ml 55 ml Output Total 1450 ml 250 ml Balance -630 ml -195 ml Intake Oral 610 ml IV Total 210 ml 55 ml Output Urine Total 450 ml 250 ml Stool Total 1000 ml Laboratory Tests 09/07/18 04:30: White Blood Count 10.1, Red Blood Count 2.46L, Hemoglobin 7.7L, Hematocrit 23.2L , Mean Corpuscular Volume 94, Mean Corpuscular Hemoglobin 31.2H, Mean Corpuscular Hemoglobin Concent 33.2, Red Cell Distribution Width 17.8H, Platelet Count 89L, Mean Platelet Volume 8.5, Neutrophils (%) (Auto) , Lymphocytes (%) (Auto) , Monocytes (%) (Auto) , Eosinophils (%) (Auto) , Basophils (%) (Auto) , Neutrophils % (Manual) [Pending], Lymphocytes % (Manual) [Pending], Platelet Estimate [Pending], Platelet Morphology [Pending], Sodium Level 137, Potassium Level 3.0L, Chloride Level 103, Carbon Dioxide Level 24, Anion Gap 10, Blood Urea Nitrogen 39H, Creatinine 2.9H, Estimat Glomerular Filtration Rate 18.3, Glucose Level 106, Calcium Level 8.2L, Total Bilirubin 2.1H, Direct Bilirubin 1.3H, Aspartate Amino Transf (AST/SGOT) 40H, Alanine Aminotransferase (ALT/SGPT) 16, Alkaline Phosphatase 148H, Total Protein 6.1L, Albumin 1.5L, Globulin 4.6, Albumin/Globulin Ratio 0.3L, Random Vancomycin Level 14.4 Height (Feet): 5 Height (Inches): 3.00 Weight (Pounds): 338 General Appearance: no apparent distress, alert EENT: normal ENT inspection Neck: normal alignment, supple Cardiovascular: normal rate, regular rhythm Respiratory/Chest: lungs clear, normal breath sounds Abdomen: non tender, soft Edema: no edema noted Arm (L), no edema noted Arm (R), no edema noted Leg (L), no edema noted Leg (R), no edema noted Pedal (L), no edema noted Pedal (R), no edema noted Generalized Amos Pinon MD Sep 07, 2018 09:15
[2018-09-07] MEDS ORDERED: Vancomycin 1.5 GM/D5W 250ML IVPB ONE (10:00)
--- NOTE | 2018-09-07 10:01 | Infectious Diseases Prog Note ---
Assessment/Plan Assessment/Plan Assessment/Plan The patient is a 38-year-old female with: Fever, Sp Probable sepsis, SP -Bcx neg Leukocytosis; SP -CXR: Pulmonary vascular congestion with increased interstitial markings , likely representing interstitial edema. This appears improved relative to the chest x-ray from 07/22/18 Urinary tract infection, 09/02 sp UCx: Kleb : Ucx: Kleb ; ucx ESBL K. pna ( R zosyn, S ertapenem), Citrobacter freundi (R ancef, I Impienem, S ertapenem) History of hepatitis panel and HIV serology negative. Diarrhea on lactulose GIB -s/p EGD 08/19: esophageal varices Seizures episodes 08/24 (?related to carbapenem) Acute renal insufficiency.; on HD -Renal US: unremarkable Thrombocytopenia S/p permacath placement 08/30,now w/ bleeding from site Encephalopathy, multifactorial, ongoin -. Alcoholic cirrhosis -. Esophageal varices PLAN: -Continue Merrem d# 3/ SP Vanco d# 4 09/05 SP Rocephin d# 3 -08/25 SP Ertapenem #7 -08/19 SP Cefepime and Flagyl #3 -.Monitor BMP -.Renal, GI f/u - seizure precautions - aspiration precautions - Blood and Urine Cx Subjective Allergies: Coded Allergies: LORAZEPAM (Verified Allergy, Unknown, 05/21/18) PENICILLINS (Verified Allergy, Unknown, 05/21/18) Subjective afebrile Objective Vital Signs Last 24 Hour Vital Signs Date Time Temp Pulse Resp B/P (MAP) Pulse Ox O2 Delivery O2 Flow Rate FiO2 09/07/18 07:29 97 Nasal Cannula 2.0 28 09/07/18 07:29 Nasal Cannula 2.0 28 09/07/18 04:00 97.9 87 20 124/66 (85) 95 09/07/18 00:00 99.3 89 20 112/55 (74) 97 09/06/18 21:00 Room Air 09/06/18 20:00 99.5 93 20 102/58 (73) 96 09/06/18 16:00 98.2 94 18 130/69 (89) 97 09/06/18 12:00 98.2 95 18 119/64 (82) 97 Height (Feet): 5 Height (Inches): 3.00 Weight (Pounds): 338 HEENT: mucous membranes moist Respiratory/Chest: normal breath sounds Cardiovascular: normal rate Abdomen: non distended Laboratory Tests Test 09/07/18 04:30 White Blood Count 10.1 K/UL (4.8-10.8) Red Blood Count 2.46 M/UL (4.20-5.40) L Hemoglobin 7.7 G/DL (12.0-16.0) L Hematocrit 23.2 % (37.0-47.0) L Mean Corpuscular Volume 94 FL (80-99) Mean Corpuscular Hemoglobin 31.2 PG (27.0-31.0) H Mean Corpuscular Hemoglobin Concent 33.2 G/DL (32.0-36.0) Red Cell Distribution Width 17.8 % (11.6-14.8) H Platelet Count 89 K/UL (150-450) L Mean Platelet Volume 8.5 FL (6.5-10.1) Neutrophils (%) (Auto) % (45.0-75.0) Lymphocytes (%) (Auto) % (20.0-45.0) Monocytes (%) (Auto) % (1.0-10.0) Eosinophils (%) (Auto) % (0.0-3.0) Basophils (%) (Auto) % (0.0-2.0) Neutrophils % (Manual) Pending Lymphocytes % (Manual) Pending Platelet Estimate Pending Platelet Morphology Pending Sodium Level 137 MMOL/L (136-145) Potassium Level 3.0 MMOL/L (3.5-5.1) L Chloride Level 103 MMOL/L (98-107) Carbon Dioxide Level 24 MMOL/L (21-32) Anion Gap 10 mmol/L (5-15) Blood Urea Nitrogen 39 mg/dL (7-18) H Creatinine 2.9 MG/DL (0.55-1.30) H Estimat Glomerular Filtration Rate 18.3 mL/min (>60) Glucose Level 106 MG/DL (74-106) Calcium Level 8.2 MG/DL (8.5-10.1) L Total Bilirubin 2.1 MG/DL (0.2-1.0) H Direct Bilirubin 1.3 MG/DL (0.0-0.3) H Aspartate Amino Transf (AST/SGOT) 40 U/L (15-37) H Alanine Aminotransferase (ALT/SGPT) 16 U/L (12-78) Alkaline Phosphatase 148 U/L (46-116) H Total Protein 6.1 G/DL (6.4-8.2) L Albumin 1.5 G/DL (3.4-5.0) L Globulin 4.6 g/dL Albumin/Globulin Ratio 0.3 (1.0-2.7) L Random Vancomycin Level 14.4 ug/mL Current Medications Medications (Trade) Dose Ordered Sig/Abner Route PRN Reason Start Time Stop Time Status Last Admin Dose Admin Al Hydroxide/Mg Hydroxide (Mylanta II) 30 ml Q6H PRN ORAL dyspepsia 09/02/18 20:27 09/27/18 20:26 Chlorhexidine Gluconate (Sierra-Hex 2%) 1 applic DAILY@2000 TOPIC 09/02/18 20:00 09/18/18 19:59 09/06/18 19:59 Dextrose (Dextrose 50%) 25 ml Q30M PRN IV Hypoglycemia 09/02/18 20:28 09/23/18 20:27 Dextrose (Dextrose 50%) 50 ml Q30M PRN IV Hypoglycemia 09/02/18 20:28 09/16/18 20:27 Lactulose (Cephulac) 30 gm EVERY 6 HOURS ORAL 09/03/18 00:00 09/16/18 11:59 09/06/18 05:45 Meropenem 1 gm/ Sodium Chloride 55 ml @ 110 mls/hr Q12HR IVPB 09/05/18 20:00 09/10/18 19:59 09/07/18 09:09 Morphine Sulfate (Morphine Sulfate) 2 mg Q4H PRN IVP For Pain 09/07/18 02:15 09/14/18 02:14 09/07/18 04:04 Ondansetron HCl (Zofran) 4 mg Q6H PRN IVP Nausea & Vomiting 09/02/18 20:28 09/27/18 20:27 Pantoprazole (Protonix) 40 mg DAILY IVP 09/03/18 09:00 09/24/18 05:59 09/07/18 09:08 Potassium Chloride 100 ml @ 100 mls/hr Q1H IVPB 09/07/18 08:30 09/07/18 11:29 09/07/18 09:09 Rifaximin (Xifaxan) 550 mg EVERY 12 HOURS ORAL 09/07/18 09:00 09/14/18 08:59 09/07/18 09:09 Vancomycin HCl (Vanco rx to dose) 1 ea DAILY PRN MISC Per rx protocol 09/03/18 17:15 10/03/18 17:14 Vancomycin HCl/ Dextrose 250 ml @ 125 mls/hr ONCE ONCE IVPB 09/07/18 10:00 09/07/18 11:59 Laz Monroy MD Sep 07, 2018 10:01
[2018-09-07 12:00] VITALS: BP 114/57
[2018-09-07 16:00] VITALS: BP 126/67
--- NOTE | 2018-09-07 18:28 | General Progress Note ---
Assessment/Plan Status: stable Assessment/Plan # Thrombocytopenia. Baseline appears to be 50-80k. Is most likely related to underlying liver disease with e/o portal htn. Hx of ETOH use. She does have evidence of hepatic cirrhosis, with surface nodularity an increased echogenicity. Evidence of portal hypertension, with ascites, splenomegaly, and flow reversal within the main and right portal vein. Evidence of prior cholecystectomy. Negative for dilated ducts. Prior CT and US has been reviewed, hepatitis and hiv are both negative. --> Plt count has been improving. --> Peripheral smear ordered and is negative for blasts --> Abx and other meds have been reviewed. --> hold off heparin, asa, or plavix --> Transfuse plts if plt count >10k or if 20k and with fever, or >50k if bleeding --> Agree with lactulose and potential rifaximin for elev ammonia --> PLT Tx: 08/31 # Coagulopathy is likely related to underlying liver disease, liver us shows "Evidence of chronic liver disease with enlarged fatty liver and stigmata of portal hypertension including hepatofugal portal venous flow." --> no evidence of bleeding, hold off on tx unless bleeding is noted --> VIt K or ffp before a procedure # Anemia due to gastrointestinal bleed. Hemoglobin on admission 5-8 range, likely bleed related, ferritin is 1125 --> Gastroenterology is following. Appreciate recs. --> Hgb goal >7. Transfuse prn. --> 09/02: s/p EGD >> Esophageal varices, status post banding x7. # Anemia of chronic disease, multifactorial. Since admission hgb has consistently been 7-8.5 --> Previous w/u has been reviewed --> Will trend CBC daily --> Hgb goal above 7 --> Blood tx: 08/17,08/18, 08/19, 08/23, 08/25, 08/29, 08/31, 09/01, 09/02, # Acute kidney injury secondary to intravascular volume depletion along with ischemic acute tubular necrosis from hypotension. --> Nephro following. Appreciate recs. # Hyperkalemia secondary to renal insufficiency and gastrointestinal bleed. --> The patient was given Kayexalate 60 g already. 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 Subjective Date patient seen: Sep 07, 2018 ROS Limited/Unobtainable: Yes Hematologic/Lymphatic: Reports: anemia Allergies: Coded Allergies: LORAZEPAM (Verified Allergy, Unknown, 05/21/18) PENICILLINS (Verified Allergy, Unknown, 05/21/18) Subjective Pt awake and alert. Febrile overnight. H/H stable. DC planning. Objective Last 24 Hour Vital Signs Date Time Temp Pulse Resp B/P (MAP) Pulse Ox O2 Delivery O2 Flow Rate FiO2 09/07/18 16:00 98.8 84 21 126/67 (86) 97 09/07/18 12:00 97.9 83 18 114/57 (76) 100 09/07/18 09:00 Room Air 09/07/18 08:00 97.9 87 20 110/66 (81) 98 09/07/18 07:29 97 Nasal Cannula 2.0 28 09/07/18 07:29 Nasal Cannula 2.0 28 09/07/18 04:00 97.9 87 20 124/66 (85) 95 09/07/18 00:00 99.3 89 20 112/55 (74) 97 09/06/18 21:00 Room Air 09/06/18 20:00 99.5 93 20 102/58 (73) 96 Intake and Output 09/06/18 09/07/18 19:00 07:00 Intake Total 820 ml 55 ml Output Total 1450 ml 250 ml Balance -630 ml -195 ml Intake Oral 610 ml IV Total 210 ml 55 ml Output Urine Total 450 ml 250 ml Stool Total 1000 ml Laboratory Tests 09/07/18 04:30: White Blood Count 10.1, Red Blood Count 2.46L, Hemoglobin 7.7L, Hematocrit 23.2L , Mean Corpuscular Volume 94, Mean Corpuscular Hemoglobin 31.2H, Mean Corpuscular Hemoglobin Concent 33.2, Red Cell Distribution Width 17.8H, Platelet Count 89L, Mean Platelet Volume 8.5, Neutrophils (%) (Auto) , Lymphocytes (%) (Auto) , Monocytes (%) (Auto) , Eosinophils (%) (Auto) , Basophils (%) (Auto) , Differential Total Cells Counted 100, Neutrophils % ( Manual) 69, Lymphocytes % (Manual) 13L, Monocytes % (Manual) 16H, Eosinophils % (Manual) 1, Basophils % (Manual) 0, Band Neutrophils 1, Platelet Estimate DecreasedL, Platelet Morphology Normal, Anisocytosis 1+, Sodium Level 137, Potassium Level 3.0L, Chloride Level 103, Carbon Dioxide Level 24, Anion Gap 10 , Blood Urea Nitrogen 39H, Creatinine 2.9H, Estimat Glomerular Filtration Rate 18.3, Glucose Level 106, Calcium Level 8.2L, Total Bilirubin 2.1H, Direct Bilirubin 1.3H, Aspartate Amino Transf (AST/SGOT) 40H, Alanine Aminotransferase (ALT/SGPT) 16, Alkaline Phosphatase 148H, Total Protein 6.1L, Albumin 1.5L, Globulin 4.6, Albumin/Globulin Ratio 0.3L, Random Vancomycin Level 14.4 Height (Feet): 5 Height (Inches): 3.00 Weight (Pounds): 338 General Appearance: no apparent distress EENT: PERRL/EOMI Neck: normal alignment Cardiovascular: normal peripheral pulses Respiratory/Chest: no respiratory distress Abdomen: normal bowel sounds Objective stahl, and rectal tube++ Michael Hernandez MD Sep 07, 2018 18:28
[2018-09-07 20:00] VITALS: BP 136/67
[2018-09-07] MEDS: Dyna-Hex 2% Top Sol 2oz TOPIC SCH (20:44)
[2018-09-08] VITALS: BP 111/64
[2018-09-08 04:00] VITALS: BP 103/60
[2018-09-08] MEDS: Lactulose 20gm/30ml UDC ORAL SCH ×5 (06:00→23:37)
[2018-09-08 07:10] LABS: HEMATOCRIT 23.1 % (37.0-47.0); HEMOGLOBIN 7.7 G/DL (12.0-16.0); MEAN CORPUSCULAR VOLUME 94 FL (80-99); PLATELET COUNT 89 K/UL (150-450); RED BLOOD COUNT 2.45 M/UL (4.20-5.40); RED CELL DISTRIBUTION WIDTH 17.6 % (11.6-14.8); WHITE BLOOD COUNT 9.6 K/UL (4.8-10.8)
--- NOTE | 2018-09-08 07:15 | Nephrology Progress Note ---
Assessment/Plan Assessment/Plan 1. ESRD- multifact ATN ( hypotension/intravasc vol dep/?hepatorenal/Anemia) - AM labs pending - monitor for renal recovery 2. Hypok+- replacing prn. AM labs pending 3. 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 GI Bleed/Anemia- per GI mgmt - prn blood tx Hgb <7 - AM labs pending Subjective Date patient seen: Sep 08, 2018 Time patient seen: 07:14 ROS Limited/Unobtainable: No Constitutional: Reports: weakness Allergies: Coded Allergies: LORAZEPAM (Verified Allergy, Unknown, 05/21/18) PENICILLINS (Verified Allergy, Unknown, 05/21/18) Subjective Patient resting. Awake and coherent and feeling better Objective Last 24 Hour Vital Signs Date Time Temp Pulse Resp B/P (MAP) Pulse Ox O2 Delivery O2 Flow Rate FiO2 09/08/18 04:00 98.8 72 19 103/60 (74) 100 09/08/18 00:00 98.7 87 20 111/64 (80) 98 09/07/18 21:16 Room Air 09/07/18 20:00 98.8 87 20 136/67 (90) 100 09/07/18 18:04 97.9 09/07/18 16:00 98.8 84 21 126/67 (86) 97 09/07/18 12:00 97.9 83 18 114/57 (76) 100 09/07/18 09:00 Room Air 09/07/18 08:00 97.9 87 20 110/66 (81) 98 09/07/18 07:29 97 Nasal Cannula 2.0 28 09/07/18 07:29 Nasal Cannula 2.0 28 Intake and Output 09/07/18 09/08/18 19:00 07:00 Intake Total 360 ml 55 ml Output Total 200 ml 850 ml Balance 160 ml -795 ml Intake Oral 360 ml IV Total 55 ml Output Urine Total 200 ml 850 ml Laboratory Tests 09/08/18 05:00: White Blood Count [Pending], Red Blood Count [Pending], Hemoglobin [Pending], Hematocrit [Pending], Mean Corpuscular Volume [Pending], Mean Corpuscular Hemoglobin [Pending], Mean Corpuscular Hemoglobin Concent [Pending], Red Cell Distribution Width [Pending], Platelet Count [Pending], Mean Platelet Volume [ Pending], Neutrophils (%) (Auto) [Pending], Lymphocytes (%) (Auto) [Pending], Monocytes (%) (Auto) [Pending], Eosinophils (%) (Auto) [Pending], Basophils (%) (Auto) [Pending], Sodium Level [Pending], Potassium Level [Pending], Chloride Level [Pending], Carbon Dioxide Level [Pending], Blood Urea Nitrogen [Pending], Creatinine [Pending], Estimat Glomerular Filtration Rate [Pending], Glucose Level [Pending], Calcium Level [Pending] Height (Feet): 5 Height (Inches): 3.00 Weight (Pounds): 356 General Appearance: no apparent distress, alert EENT: normal ENT inspection Neck: normal alignment, supple Cardiovascular: normal rate, regular rhythm Respiratory/Chest: lungs clear, normal breath sounds Abdomen: non tender, soft, distended Edema: 2+ Arm (L), 2+ Arm (R), 2+ Leg (L), 2+ Leg (R), 2+ Pedal (L), 2+ Pedal ( R), 2+ Generalized Amos Pinon MD Sep 08, 2018 07:15
[2018-09-08 07:33] LABS: ANION GAP 8 mmol/L (5-15); BLOOD UREA NITROGEN 38 mg/dL (7-18); CALCIUM 8.1 MG/DL (8.5-10.1); CARBON DIOXIDE 22 MMOL/L (21-32); CHLORIDE 104 MMOL/L (98-107); CREATININE 2.7 MG/DL (0.55-1.30); POTASSIUM 3.2 MMOL/L (3.5-5.1); SODIUM 134 MMOL/L (136-145)
--- NOTE | 2018-09-08 07:47 | General Progress Note ---
Assessment/Plan Problem List: (1) Acute encephalopathy ICD Codes: G93.40 - Encephalopathy, unspecified SNOMED: 05804263, 037491090 (2) Ascites ICD Codes: R18.8 - Other ascites SNOMED: 999022633 (3) Alcoholic cirrhosis ICD Codes: K70.30 - Alcoholic cirrhosis of liver without ascites SNOMED: 516968793 (4) Esophageal varices ICD Codes: I85.00 - Esophageal varices without bleeding SNOMED: 62149915 (5) Anemia ICD Codes: D64.9 - Anemia, unspecified SNOMED: 571518698 (6) Coagulopathy ICD Codes: D68.9 - Coagulation defect, unspecified SNOMED: 90602414 Assessment/Plan s/p EGD >> Esophageal varices, status post banding x7. more awake and alert, ST evaluation >> passed RECOMMENDATIONS: on renal diet, tolerating ppi BID transfuse prn lactulose + Xifaxan very poor prognosis portal HTN management with propranolol fu labs dc planning plan EGD this week if still in house Subjective ROS Limited/Unobtainable: No Allergies: Coded Allergies: LORAZEPAM (Verified Allergy, Unknown, 05/21/18) PENICILLINS (Verified Allergy, Unknown, 05/21/18) Subjective altered transferred to icu due to SZ Objective Last 24 Hour Vital Signs Date Time Temp Pulse Resp B/P (MAP) Pulse Ox O2 Delivery O2 Flow Rate FiO2 09/08/18 07:44 98 Nasal Cannula 2.0 09/08/18 07:44 Nasal Cannula 2.0 28 09/08/18 04:00 98.8 72 19 103/60 (74) 100 09/08/18 00:00 98.7 87 20 111/64 (80) 98 09/07/18 21:16 Room Air 09/07/18 20:00 98.8 87 20 136/67 (90) 100 09/07/18 18:04 97.9 09/07/18 16:00 98.8 84 21 126/67 (86) 97 09/07/18 12:00 97.9 83 18 114/57 (76) 100 09/07/18 09:00 Room Air 09/07/18 08:00 97.9 87 20 110/66 (81) 98 Intake and Output 09/07/18 09/08/18 19:00 07:00 Intake Total 360 ml 55 ml Output Total 200 ml 850 ml Balance 160 ml -795 ml Intake Oral 360 ml IV Total 55 ml Output Urine Total 200 ml 850 ml Laboratory Tests 09/08/18 05:00: White Blood Count 9.6, Red Blood Count 2.45L, Hemoglobin 7.7L, Hematocrit 23.1L , Mean Corpuscular Volume 94, Mean Corpuscular Hemoglobin 31.3H, Mean Corpuscular Hemoglobin Concent 33.2, Red Cell Distribution Width 17.6H, Platelet Count 89L, Mean Platelet Volume 8.9, Neutrophils (%) (Auto) , Lymphocytes (%) (Auto) , Monocytes (%) (Auto) , Eosinophils (%) (Auto) , Basophils (%) (Auto) , Neutrophils % (Manual) [Pending], Lymphocytes % (Manual) [Pending], Platelet Estimate [Pending], Platelet Morphology [Pending], Sodium Level 134L, Potassium Level 3.2L, Chloride Level 104, Carbon Dioxide Level 22, Anion Gap 8, Blood Urea Nitrogen 38H, Creatinine 2.7H, Estimat Glomerular Filtration Rate 20.0, Glucose Level 108H, Calcium Level 8.1L Height (Feet): 5 Height (Inches): 3.00 Weight (Pounds): 356 General Appearance: no apparent distress EENT: normal ENT inspection Neck: supple Cardiovascular: normal rate Respiratory/Chest: decreased breath sounds Abdomen: normal bowel sounds, non tender, soft Extremities: non-tender Christopher Rodriguez MD Sep 08, 2018 07:47
[2018-09-08 08:00] VITALS: BP 113/67
--- NOTE | 2018-09-08 08:40 | General Progress Note ---
Assessment/Plan Problem List: (1) Edema ICD Codes: R60.9 - Edema, unspecified SNOMED: 987641761, 748707140 (2) Anemia ICD Codes: D64.9 - Anemia, unspecified SNOMED: 959621616 (3) Alcoholic cirrhosis ICD Codes: K70.30 - Alcoholic cirrhosis of liver without ascites SNOMED: 655213559 (4) Esophageal varices ICD Codes: I85.00 - Esophageal varices without bleeding SNOMED: 88820911 (5) Leukocytosis ICD Codes: D72.829 - Elevated white blood cell count, unspecified SNOMED: 846767365, 267674833 (6) GI bleed ICD Codes: K92.2 - Gastrointestinal hemorrhage, unspecified SNOMED: 11250772 (7) LENI (acute kidney injury) ICD Codes: N17.9 - Acute kidney failure, unspecified SNOMED: 41616305 (8) Sepsis ICD Codes: A41.9 - Sepsis, unspecified organism SNOMED: 92062251 (9) Seizure ICD Codes: R56.9 - Unspecified convulsions SNOMED: 36999806 Status: unchanged Assessment/Plan abx oe pulm tx transfuse prn gi heme f/u dialysis prn seizure control cbc bmp am promise ltach if clear Subjective Constitutional: Reports: weakness Allergies: Coded Allergies: LORAZEPAM (Verified Allergy, Unknown, 05/21/18) PENICILLINS (Verified Allergy, Unknown, 05/21/18) All Systems: reviewed and negative except above Subjective sleepy in bed Objective Last 24 Hour Vital Signs Date Time Temp Pulse Resp B/P (MAP) Pulse Ox O2 Delivery O2 Flow Rate FiO2 09/08/18 08:00 99.5 95 20 113/67 (82) 100 09/08/18 07:44 98 Nasal Cannula 2.0 28 09/08/18 07:44 Nasal Cannula 2.0 28 09/08/18 04:00 98.8 72 19 103/60 (74) 100 09/08/18 00:00 98.7 87 20 111/64 (80) 98 09/07/18 21:16 Room Air 09/07/18 20:00 98.8 87 20 136/67 (90) 100 09/07/18 18:04 97.9 09/07/18 16:00 98.8 84 21 126/67 (86) 97 09/07/18 12:00 97.9 83 18 114/57 (76) 100 09/07/18 09:00 Room Air Intake and Output 09/07/18 09/08/18 19:00 07:00 Intake Total 360 ml 55 ml Output Total 200 ml 850 ml Balance 160 ml -795 ml Intake Oral 360 ml IV Total 55 ml Output Urine Total 200 ml 850 ml Laboratory Tests 09/08/18 05:00: White Blood Count 9.6, Red Blood Count 2.45L, Hemoglobin 7.7L, Hematocrit 23.1L , Mean Corpuscular Volume 94, Mean Corpuscular Hemoglobin 31.3H, Mean Corpuscular Hemoglobin Concent 33.2, Red Cell Distribution Width 17.6H, Platelet Count 89L, Mean Platelet Volume 8.9, Neutrophils (%) (Auto) , Lymphocytes (%) (Auto) , Monocytes (%) (Auto) , Eosinophils (%) (Auto) , Basophils (%) (Auto) , Neutrophils % (Manual) [Pending], Lymphocytes % (Manual) [Pending], Platelet Estimate [Pending], Platelet Morphology [Pending], Sodium Level 134L, Potassium Level 3.2L, Chloride Level 104, Carbon Dioxide Level 22, Anion Gap 8, Blood Urea Nitrogen 38H, Creatinine 2.7H, Estimat Glomerular Filtration Rate 20.0, Glucose Level 108H, Calcium Level 8.1L Height (Feet): 5 Height (Inches): 3.00 Weight (Pounds): 356 General Appearance: lethargic EENT: normal ENT inspection Neck: normal alignment Cardiovascular: normal peripheral pulses, normal rate, regular rhythm Respiratory/Chest: chest wall non-tender, lungs clear, normal breath sounds Abdomen: normal bowel sounds, non tender, soft Extremities: normal inspection Edema: 2+ Arm (L), 2+ Arm (R), 2+ Leg (L), 2+ Leg (R), 2+ Pedal (L), 2+ Pedal ( R), 2+ Generalized Edema: mild edema Neurologic: motor weakness Skin: normal pigmentation, warm/dry Chauncey Fuentes DO Sep 08, 2018 08:40
[2018-09-08] MEDS: Meropenem 1 GM in NS 55 ML IVPB SCH ×2 (08:44→20:19)
[2018-09-08] MEDS: Pantoprazole Inj IVP SCH (08:44)
[2018-09-08] MEDS: Morphine Sulfate 2mg/ml Inj IVP PRN ×3 (08:45→20:20)
[2018-09-08 12:00] VITALS: BP 117/56
[2018-09-08 16:00] VITALS: BP 130/77
--- NOTE | 2018-09-08 18:33 | General Progress Note ---
Assessment/Plan Status: stable Assessment/Plan # Thrombocytopenia. Baseline appears to be 50-80k. Is most likely related to underlying liver disease with e/o portal htn. Hx of ETOH use. She does have evidence of hepatic cirrhosis, with surface nodularity an increased echogenicity. Evidence of portal hypertension, with ascites, splenomegaly, and flow reversal within the main and right portal vein. Evidence of prior cholecystectomy. Negative for dilated ducts. Prior CT and US has been reviewed, hepatitis and hiv are both negative. --> Plt count has been improving. --> Peripheral smear ordered and is negative for blasts --> Abx and other meds have been reviewed. --> hold off heparin, asa, or plavix --> Transfuse plts if plt count >10k or if 20k and with fever, or >50k if bleeding --> Agree with lactulose and potential rifaximin for elev ammonia --> PLT Tx: 08/31 # Coagulopathy is likely related to underlying liver disease, liver us shows "Evidence of chronic liver disease with enlarged fatty liver and stigmata of portal hypertension including hepatofugal portal venous flow." --> no evidence of bleeding, hold off on tx unless bleeding is noted --> VIt K or ffp before a procedure # Anemia due to gastrointestinal bleed. Hemoglobin on admission 5-8 range, likely bleed related, ferritin is 1125 --> Gastroenterology is following. Appreciate recs. --> Hgb goal >7. Transfuse prn. --> 09/02: s/p EGD >> Esophageal varices, status post banding x7. # Anemia of chronic disease, multifactorial. Since admission hgb has consistently been 7-8.5 --> Previous w/u has been reviewed --> Will trend CBC daily --> Hgb goal above 7 --> Blood tx: 08/17,08/18, 08/19, 08/23, 08/25, 08/29, 08/31, 09/01, 09/02, # Acute kidney injury secondary to intravascular volume depletion along with ischemic acute tubular necrosis from hypotension. --> Nephro following. Appreciate recs. # Hyperkalemia secondary to renal insufficiency and gastrointestinal bleed. --> The patient was given Kayexalate 60 g already. 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 Subjective Date patient seen: Sep 08, 2018 ROS Limited/Unobtainable: Yes Allergies: Coded Allergies: LORAZEPAM (Verified Allergy, Unknown, 05/21/18) PENICILLINS (Verified Allergy, Unknown, 05/21/18) Subjective Pt awake and alert. Febrile overnight. H/H stable. DC planning. Objective Last 24 Hour Vital Signs Date Time Temp Pulse Resp B/P (MAP) Pulse Ox O2 Delivery O2 Flow Rate FiO2 09/08/18 16:00 99.0 93 19 130/77 (94) 100 09/08/18 12:00 98.4 89 18 117/56 (76) 100 09/08/18 09:00 Room Air 09/08/18 08:00 99.5 95 20 113/67 (82) 100 09/08/18 07:44 98 Nasal Cannula 2.0 09/08/18 07:44 Nasal Cannula 2.0 28 09/08/18 04:00 98.8 72 19 103/60 (74) 100 09/08/18 00:00 98.7 87 20 111/64 (80) 98 09/07/18 21:16 Room Air 09/07/18 20:00 98.8 87 20 136/67 (90) 100 Intake and Output 09/07/18 09/08/18 18:59 06:59 Intake Total 360 ml 55 ml Output Total 200 ml 850 ml Balance 160 ml -795 ml Intake Oral 360 ml IV Total 55 ml Output Urine Total 200 ml 850 ml Laboratory Tests 09/08/18 05:00: White Blood Count 9.6, Red Blood Count 2.45L, Hemoglobin 7.7L, Hematocrit 23.1L , Mean Corpuscular Volume 94, Mean Corpuscular Hemoglobin 31.3H, Mean Corpuscular Hemoglobin Concent 33.2, Red Cell Distribution Width 17.6H, Platelet Count 89L, Mean Platelet Volume 8.9, Neutrophils (%) (Auto) , Lymphocytes (%) (Auto) , Monocytes (%) (Auto) , Eosinophils (%) (Auto) , Basophils (%) (Auto) , Differential Total Cells Counted 100, Neutrophils % ( Manual) 66, Lymphocytes % (Manual) 15L, Monocytes % (Manual) 16H, Eosinophils % (Manual) 2, Basophils % (Manual) 1, Band Neutrophils 0, Platelet Estimate DecreasedL, Platelet Morphology Normal, Anisocytosis 1+, Sodium Level 134L, Potassium Level 3.2L, Chloride Level 104, Carbon Dioxide Level 22, Anion Gap 8, Blood Urea Nitrogen 38H, Creatinine 2.7H, Estimat Glomerular Filtration Rate 20.0, Glucose Level 108H, Calcium Level 8.1L Height (Feet): 5 Height (Inches): 3.00 Weight (Pounds): 356 General Appearance: no apparent distress EENT: PERRL/EOMI Neck: normal alignment Cardiovascular: normal peripheral pulses Respiratory/Chest: no respiratory distress Abdomen: normal bowel sounds Objective stahl, and rectal tube++ Michael Hernandez MD Sep 08, 2018 18:33
[2018-09-08 20:00] VITALS: BP 121/70
[2018-09-08] MEDS: Dyna-Hex 2% Top Sol 2oz TOPIC SCH (20:18)
[2018-09-09] MEDS: Morphine Sulfate 2mg/ml Inj IVP PRN ×4 (02:01→18:43)
[2018-09-09 04:00] VITALS: BP 128/72
[2018-09-09] MEDS: Lactulose 20gm/30ml UDC ORAL SCH ×4 (05:31→23:58)
[2018-09-09 06:30] LABS: HEMATOCRIT 23.6 % (37.0-47.0); HEMOGLOBIN 7.8 G/DL (12.0-16.0); MEAN CORPUSCULAR VOLUME 94 FL (80-99); PLATELET COUNT 85 K/UL (150-450); RED CELL DISTRIBUTION WIDTH 17.6 % (11.6-14.8); WHITE BLOOD COUNT 10.6 K/UL (4.8-10.8)
[2018-09-09 07:01] LABS: ANION GAP 9 mmol/L (5-15); BLOOD UREA NITROGEN 39 mg/dL (7-18); CALCIUM 8.2 MG/DL (8.5-10.1); CARBON DIOXIDE 23 MMOL/L (21-32); CHLORIDE 105 MMOL/L (98-107); CREATININE 2.5 MG/DL (0.55-1.30); POTASSIUM 3.3 MMOL/L (3.5-5.1); SODIUM 137 MMOL/L (136-145)
[2018-09-09 08:00] VITALS: BP 131/88
[2018-09-09] MEDS: Pantoprazole Inj IVP SCH (08:36)
[2018-09-09] MEDS: Meropenem 1 GM in NS 55 ML IVPB SCH ×2 (08:36→21:58)
--- NOTE | 2018-09-09 08:51 | General Progress Note ---
Assessment/Plan Status: stable Assessment/Plan # Thrombocytopenia. Baseline appears to be 50-80k. Is most likely related to underlying liver disease with e/o portal htn. Hx of ETOH use. She does have evidence of hepatic cirrhosis, with surface nodularity an increased echogenicity. Evidence of portal hypertension, with ascites, splenomegaly, and flow reversal within the main and right portal vein. Evidence of prior cholecystectomy. Negative for dilated ducts. Prior CT and US has been reviewed, hepatitis and hiv are both negative. --> Plt count has been improving. --> Peripheral smear ordered and is negative for blasts --> Abx and other meds have been reviewed. --> hold off heparin, asa, or plavix --> Transfuse plts if plt count >10k or if 20k and with fever, or >50k if bleeding --> Agree with lactulose and potential rifaximin for elev ammonia --> PLT Tx: 08/31 # Coagulopathy is likely related to underlying liver disease, liver us shows "Evidence of chronic liver disease with enlarged fatty liver and stigmata of portal hypertension including hepatofugal portal venous flow." --> no evidence of bleeding, hold off on tx unless bleeding is noted --> VIt K or ffp before a procedure # Anemia due to gastrointestinal bleed. Hemoglobin on admission 5-8 range, likely bleed related, ferritin is 1125 --> Gastroenterology is following. Appreciate recs. --> Hgb goal >7. Transfuse prn. --> 09/02: s/p EGD >> Esophageal varices, status post banding x7. # Anemia of chronic disease, multifactorial. Since admission hgb has consistently been 7-8.5 --> Previous w/u has been reviewed --> Will trend CBC daily --> Hgb goal above 7 --> Blood tx: 08/17,08/18, 08/19, 08/23, 08/25, 08/29, 08/31, 09/01, 09/02, # Acute kidney injury secondary to intravascular volume depletion along with ischemic acute tubular necrosis from hypotension. --> Nephro following. Appreciate recs. # Hyperkalemia secondary to renal insufficiency and gastrointestinal bleed. --> The patient was given Kayexalate 60 g already. 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 Subjective Date patient seen: Sep 09, 2018 ROS Limited/Unobtainable: Yes Constitutional: Reports: fever Hematologic/Lymphatic: Reports: anemia Allergies: Coded Allergies: LORAZEPAM (Verified Allergy, Unknown, 05/21/18) PENICILLINS (Verified Allergy, Unknown, 05/21/18) Subjective Pt awake and alert. H/H stable. Temp slightly elevated at 99.4 Objective Last 24 Hour Vital Signs Date Time Temp Pulse Resp B/P (MAP) Pulse Ox O2 Delivery O2 Flow Rate FiO2 09/09/18 04:00 99.4 90 16 128/72 (90) 100 09/08/18 21:00 Room Air 09/08/18 20:00 99.5 93 20 121/70 (87) 100 09/08/18 16:00 99.0 93 19 130/77 (94) 100 09/08/18 12:00 98.4 89 18 117/56 (76) 100 09/08/18 09:00 Room Air Intake and Output 09/08/18 09/09/18 19:00 07:00 Intake Total 350 ml 55 ml Output Total 750 ml 750 ml Balance -400 ml -695 ml Intake Oral 350 ml IV Total 55 ml Output Urine Total 450 ml 750 ml Stool Total 300 ml Laboratory Tests 09/09/18 05:15: White Blood Count 10.6, Red Blood Count 2.50L, Hemoglobin 7.8L, Hematocrit 23.6L , Mean Corpuscular Volume 94, Mean Corpuscular Hemoglobin 31.1H, Mean Corpuscular Hemoglobin Concent 32.9, Red Cell Distribution Width 17.6H, Platelet Count 85L, Mean Platelet Volume 9.2, Neutrophils (%) (Auto) , Lymphocytes (%) (Auto) , Monocytes (%) (Auto) , Eosinophils (%) (Auto) , Basophils (%) (Auto) , Neutrophils % (Manual) [Pending], Lymphocytes % (Manual) [Pending], Platelet Estimate [Pending], Platelet Morphology [Pending], Sodium Level 137, Potassium Level 3.3L, Chloride Level 105, Carbon Dioxide Level 23, Anion Gap 9, Blood Urea Nitrogen 39H, Creatinine 2.5H, Estimat Glomerular Filtration Rate 21.8, Glucose Level 115H, Calcium Level 8.2L Height (Feet): 5 Height (Inches): 3.00 Weight (Pounds): 351 General Appearance: no apparent distress EENT: PERRL/EOMI Neck: normal alignment Cardiovascular: normal peripheral pulses Respiratory/Chest: no respiratory distress Abdomen: normal bowel sounds Objective stahl, and rectal tube++ Michael Hernandez MD Sep 09, 2018 08:51
--- NOTE | 2018-09-09 10:46 | Infectious Diseases Prog Note ---
Assessment/Plan Assessment/Plan Assessment/Plan The patient is a 38-year-old female with: Fever, Sp Probable sepsis, SP -Bcx neg Leukocytosis; SP -CXR: Pulmonary vascular congestion with increased interstitial markings , likely representing interstitial edema. This appears improved relative to the chest x-ray from 07/22/18 Urinary tract infection, 09/02 sp UCx: Kleb : Ucx: Kleb ; ucx ESBL K. pna ( R zosyn, S ertapenem), Citrobacter freundi (R ancef, I Impienem, S ertapenem) History of hepatitis panel and HIV serology negative. Diarrhea on lactulose GIB -s/p EGD 08/19: esophageal varices Seizures episodes 08/24 (?related to carbapenem) Acute renal insufficiency.; on HD -Renal US: unremarkable Thrombocytopenia S/p permacath placement 08/30,now w/ bleeding from site Encephalopathy, multifactorial, ongoin -. Alcoholic cirrhosis -. Esophageal varices PLAN: -Continue Merrem d# / SP Vanco d# 4 09/05 SP Rocephin d# 3 -08/25 SP Ertapenem #7 -08/19 SP Cefepime and Flagyl #3 -.Monitor BMP -.Renal, GI f/u - seizure precautions - aspiration precautions Subjective Allergies: Coded Allergies: LORAZEPAM (Verified Allergy, Unknown, 05/21/18) PENICILLINS (Verified Allergy, Unknown, 05/21/18) Subjective afebrile Objective Vital Signs Last 24 Hour Vital Signs Date Time Temp Pulse Resp B/P (MAP) Pulse Ox O2 Delivery O2 Flow Rate FiO2 09/09/18 09:21 99.4 09/09/18 04:00 99.4 90 16 128/72 (90) 100 09/08/18 21:00 Room Air 09/08/18 20:00 99.5 93 20 121/70 (87) 100 09/08/18 16:00 99.0 93 19 130/77 (94) 100 09/08/18 12:00 98.4 89 18 117/56 (76) 100 Height (Feet): 5 Height (Inches): 3.00 Weight (Pounds): 351 HEENT: atraumatic Respiratory/Chest: no respiratory distress Cardiovascular: regular rhythm Laboratory Tests Test 09/09/18 05:15 White Blood Count 10.6 K/UL (4.8-10.8) Red Blood Count 2.50 M/UL (4.20-5.40) L Hemoglobin 7.8 G/DL (12.0-16.0) L Hematocrit 23.6 % (37.0-47.0) L Mean Corpuscular Volume 94 FL (80-99) Mean Corpuscular Hemoglobin 31.1 PG (27.0-31.0) H Mean Corpuscular Hemoglobin Concent 32.9 G/DL (32.0-36.0) Red Cell Distribution Width 17.6 % (11.6-14.8) H Platelet Count 85 K/UL (150-450) L Mean Platelet Volume 9.2 FL (6.5-10.1) Neutrophils (%) (Auto) % (45.0-75.0) Lymphocytes (%) (Auto) % (20.0-45.0) Monocytes (%) (Auto) % (1.0-10.0) Eosinophils (%) (Auto) % (0.0-3.0) Basophils (%) (Auto) % (0.0-2.0) Neutrophils % (Manual) Pending Lymphocytes % (Manual) Pending Platelet Estimate Pending Platelet Morphology Pending Sodium Level 137 MMOL/L (136-145) Potassium Level 3.3 MMOL/L (3.5-5.1) L Chloride Level 105 MMOL/L (98-107) Carbon Dioxide Level 23 MMOL/L (21-32) Anion Gap 9 mmol/L (5-15) Blood Urea Nitrogen 39 mg/dL (7-18) H Creatinine 2.5 MG/DL (0.55-1.30) H Estimat Glomerular Filtration Rate 21.8 mL/min (>60) Glucose Level 115 MG/DL (74-106) H Calcium Level 8.2 MG/DL (8.5-10.1) L Current Medications Medications (Trade) Dose Ordered Sig/Abner Route PRN Reason Start Time Stop Time Status Last Admin Dose Admin Al Hydroxide/Mg Hydroxide (Mylanta II) 30 ml Q6H PRN ORAL dyspepsia 09/02/18 20:27 09/27/18 20:26 Chlorhexidine Gluconate (Sierra-Hex 2%) 1 applic DAILY@1999 TOPIC 09/02/18 20:00 11//18 19:59 09/08/18 20:18 Dextrose (Dextrose 50%) 25 ml Q30M PRN IV Hypoglycemia 09/02/18 20:28 09/23/18 20:27 Dextrose (Dextrose 50%) 50 ml Q30M PRN IV Hypoglycemia 09/02/18 20:28 09/16/18 20:27 Lactulose (Cephulac) 30 gm EVERY 6 HOURS ORAL 09/03/18 00:00 09/16/18 11:59 09/09/18 05:31 Meropenem 1 gm/ Sodium Chloride 55 ml @ 110 mls/hr Q12HR IVPB 09/05/18 20:00 09/10/18 19:59 09/09/18 08:36 Morphine Sulfate (Morphine Sulfate) 4 mg Q3H PRN IVP For Pain 09/07/18 17:15 09/14/18 17:14 09/09/18 08:51 Ondansetron HCl (Zofran) 4 mg Q6H PRN IVP Nausea & Vomiting 09/02/18 20:28 09/27/18 20:27 Pantoprazole (Protonix) 40 mg DAILY IVP 09/03/18 09:00 09/24/18 05:59 09/09/18 08:36 Rifaximin (Xifaxan) 550 mg EVERY 12 HOURS ORAL 09/07/18 09:00 09/14/18 08:59 09/09/18 08:36 Laz Monroy MD Sep 09, 2018 10:46
--- NOTE | 2018-09-09 10:53 | GI Progress Note ---
Assessment/Plan Problems: (1) Ascites ICD Codes: R18.8 - Other ascites SNOMED: 143595847 (2) Alcoholic cirrhosis ICD Codes: K70.30 - Alcoholic cirrhosis of liver without ascites SNOMED: 502925605 (3) Esophageal varices ICD Codes: I85.00 - Esophageal varices without bleeding SNOMED: 15699980 (4) Anemia ICD Codes: D64.9 - Anemia, unspecified SNOMED: 787020830 (5) Chronic renal insufficiency ICD Codes: N18.9 - Chronic kidney disease, unspecified SNOMED: 174205558 (6) Coagulopathy ICD Codes: D68.9 - Coagulation defect, unspecified SNOMED: 72693458 (7) Hemorrhagic shock ICD Codes: R57.8 - Other shock SNOMED: 404821 (8) GI bleed ICD Codes: K92.2 - Gastrointestinal hemorrhage, unspecified SNOMED: 07707618 Status: stable Status Narrative Discussed with Dr. Rodriguez. Assessment/Plan s/p EGD >> Esophageal varices, status post banding x7. more awake and alert, ST evaluation >> passed RECOMMENDATIONS: on renal diet, tolerating ppi BID transfuse prn lactulose + Xifaxan very poor prognosis portal HTN management with propranolol fu labs dc planning plan EGD this week if still in house The patient was seen and examined at bedside and all new and available data was reviewed in the patients chart. I agree with the above findings, impression and plan. (Patient seen earlier today. Signature stamp does not reflect patient encounter time.). - Christopher Rodriguez MD Subjective Subjective abdominal pain fatigue Objective Last 24 Hour Vital Signs Date Time Temp Pulse Resp B/P (MAP) Pulse Ox O2 Delivery O2 Flow Rate FiO2 09/09/18 09:21 99.4 09/09/18 04:00 99.4 90 16 128/72 (90) 100 09/08/18 21:00 Room Air 09/08/18 20:00 99.5 93 20 121/70 (87) 100 09/08/18 16:00 99.0 93 19 130/77 (94) 100 09/08/18 12:00 98.4 89 18 117/56 (76) 100 Intake and Output 09/08/18 09/09/18 19:00 07:00 Intake Total 350 ml 55 ml Output Total 750 ml 750 ml Balance -400 ml -695 ml Intake Oral 350 ml IV Total 55 ml Output Urine Total 450 ml 750 ml Stool Total 300 ml Laboratory Tests Test 09/09/18 05:15 White Blood Count 10.6 K/UL (4.8-10.8) Red Blood Count 2.50 M/UL (4.20-5.40) L Hemoglobin 7.8 G/DL (12.0-16.0) L Hematocrit 23.6 % (37.0-47.0) L Mean Corpuscular Volume 94 FL (80-99) Mean Corpuscular Hemoglobin 31.1 PG (27.0-31.0) H Mean Corpuscular Hemoglobin Concent 32.9 G/DL (32.0-36.0) Red Cell Distribution Width 17.6 % (11.6-14.8) H Platelet Count 85 K/UL (150-450) L Mean Platelet Volume 9.2 FL (6.5-10.1) Neutrophils (%) (Auto) % (45.0-75.0) Lymphocytes (%) (Auto) % (20.0-45.0) Monocytes (%) (Auto) % (1.0-10.0) Eosinophils (%) (Auto) % (0.0-3.0) Basophils (%) (Auto) % (0.0-2.0) Neutrophils % (Manual) Pending Lymphocytes % (Manual) Pending Platelet Estimate Pending Platelet Morphology Pending Sodium Level 137 MMOL/L (136-145) Potassium Level 3.3 MMOL/L (3.5-5.1) L Chloride Level 105 MMOL/L (98-107) Carbon Dioxide Level 23 MMOL/L (21-32) Anion Gap 9 mmol/L (5-15) Blood Urea Nitrogen 39 mg/dL (7-18) H Creatinine 2.5 MG/DL (0.55-1.30) H Estimat Glomerular Filtration Rate 21.8 mL/min (>60) Glucose Level 115 MG/DL (74-106) H Calcium Level 8.2 MG/DL (8.5-10.1) L Height (Feet): 5 Height (Inches): 3.00 Weight (Pounds): 351 General Appearance: WD/WN, no apparent distress, alert Cardiovascular: normal rate Respiratory/Chest: normal breath sounds, no respiratory distress Abdominal Exam: normal bowel sounds, non tender, soft Extremities: normal range of motion, non-tender Objective generalized edema Markus Lebron NP Sep 09, 2018 10:53
--- NOTE | 2018-09-09 11:29 | Nephrology Progress Note ---
Assessment/Plan Assessment/Plan 1. ESRD- multifact ATN ( hypotension/intravasc vol dep/?hepatorenal/Anemia) - resolving. Cr continues to improve off HD - plan to DC permacath tomorrow if Cr again improved - good UOP 2. Hypok+- replaced this am 3. 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 GI Bleed/Anemia- per GI mgmt - prn blood tx Hgb <7 Subjective Date patient seen: Sep 09, 2018 Time patient seen: 11:27 ROS Limited/Unobtainable: No Constitutional: Reports: weakness Allergies: Coded Allergies: LORAZEPAM (Verified Allergy, Unknown, 05/21/18) PENICILLINS (Verified Allergy, Unknown, 05/21/18) Subjective Patient continues to improve. Good UOP Objective Last 24 Hour Vital Signs Date Time Temp Pulse Resp B/P (MAP) Pulse Ox O2 Delivery O2 Flow Rate FiO2 09/09/18 09:21 99.4 09/09/18 04:00 99.4 90 16 128/72 (90) 100 09/08/18 21:00 Room Air 09/08/18 20:00 99.5 93 20 121/70 (87) 100 09/08/18 16:00 99.0 93 19 130/77 (94) 100 09/08/18 12:00 98.4 89 18 117/56 (76) 100 Intake and Output 09/08/18 09/09/18 19:00 07:00 Intake Total 350 ml 55 ml Output Total 750 ml 750 ml Balance -400 ml -695 ml Intake Oral 350 ml IV Total 55 ml Output Urine Total 450 ml 750 ml Stool Total 300 ml Laboratory Tests 09/09/18 05:15: White Blood Count 10.6, Red Blood Count 2.50L, Hemoglobin 7.8L, Hematocrit 23.6L , Mean Corpuscular Volume 94, Mean Corpuscular Hemoglobin 31.1H, Mean Corpuscular Hemoglobin Concent 32.9, Red Cell Distribution Width 17.6H, Platelet Count 85L, Mean Platelet Volume 9.2, Neutrophils (%) (Auto) , Lymphocytes (%) (Auto) , Monocytes (%) (Auto) , Eosinophils (%) (Auto) , Basophils (%) (Auto) , Neutrophils % (Manual) [Pending], Lymphocytes % (Manual) [Pending], Platelet Estimate [Pending], Platelet Morphology [Pending], Sodium Level 137, Potassium Level 3.3L, Chloride Level 105, Carbon Dioxide Level 23, Anion Gap 9, Blood Urea Nitrogen 39H, Creatinine 2.5H, Estimat Glomerular Filtration Rate 21.8, Glucose Level 115H, Calcium Level 8.2L Height (Feet): 5 Height (Inches): 3.00 Weight (Pounds): 351 General Appearance: no apparent distress, alert EENT: normal ENT inspection Neck: normal alignment, supple Cardiovascular: normal rate, regular rhythm Respiratory/Chest: lungs clear, normal breath sounds Abdomen: non tender, soft, distended Edema: 1+ Arm (L), 1+ Arm (R), 1+ Leg (L), 1+ Leg (R), 1+ Pedal (L), 1+ Pedal ( R), 1+ Generalized Amos Pinon MD Sep 09, 2018 11:29
[2018-09-09 12:00] VITALS: BP 113/70
--- NOTE | 2018-09-09 13:29 | General Progress Note ---
Assessment/Plan Problem List: (1) Edema ICD Codes: R60.9 - Edema, unspecified SNOMED: 240051755, 857405337 (2) Anemia ICD Codes: D64.9 - Anemia, unspecified SNOMED: 086570956 (3) Alcoholic cirrhosis ICD Codes: K70.30 - Alcoholic cirrhosis of liver without ascites SNOMED: 429877955 (4) Esophageal varices ICD Codes: I85.00 - Esophageal varices without bleeding SNOMED: 98000355 (5) Leukocytosis ICD Codes: D72.829 - Elevated white blood cell count, unspecified SNOMED: 634169755, 609296638 (6) GI bleed ICD Codes: K92.2 - Gastrointestinal hemorrhage, unspecified SNOMED: 65777116 (7) LENI (acute kidney injury) ICD Codes: N17.9 - Acute kidney failure, unspecified SNOMED: 12363705 (8) Sepsis ICD Codes: A41.9 - Sepsis, unspecified organism SNOMED: 24924341 (9) Seizure ICD Codes: R56.9 - Unspecified convulsions SNOMED: 39049239 Status: unchanged Assessment/Plan abx oe pulm tx transfuse prn gi heme f/u dialysis prn seizure control cbc bmp am promise ltach if clear Subjective Constitutional: Reports: weakness Allergies: Coded Allergies: LORAZEPAM (Verified Allergy, Unknown, 05/21/18) PENICILLINS (Verified Allergy, Unknown, 05/21/18) All Systems: reviewed and negative except above Subjective sleepy in bed Objective Last 24 Hour Vital Signs Date Time Temp Pulse Resp B/P (MAP) Pulse Ox O2 Delivery O2 Flow Rate FiO2 09/09/18 09:21 99.4 09/09/18 09:00 Room Air 09/09/18 08:00 97.4 86 20 131/88 (102) 98 09/09/18 04:00 99.4 90 16 128/72 (90) 100 09/08/18 21:00 Room Air 09/08/18 20:00 99.5 93 20 121/70 (87) 100 09/08/18 16:00 99.0 93 19 130/77 (94) 100 Intake and Output 09/08/18 09/09/18 19:00 07:00 Intake Total 350 ml 55 ml Output Total 750 ml 750 ml Balance -400 ml -695 ml Intake Oral 350 ml IV Total 55 ml Output Urine Total 450 ml 750 ml Stool Total 300 ml Laboratory Tests 09/09/18 05:15: White Blood Count 10.6, Red Blood Count 2.50L, Hemoglobin 7.8L, Hematocrit 23.6L , Mean Corpuscular Volume 94, Mean Corpuscular Hemoglobin 31.1H, Mean Corpuscular Hemoglobin Concent 32.9, Red Cell Distribution Width 17.6H, Platelet Count 85L, Mean Platelet Volume 9.2, Neutrophils (%) (Auto) , Lymphocytes (%) (Auto) , Monocytes (%) (Auto) , Eosinophils (%) (Auto) , Basophils (%) (Auto) , Neutrophils % (Manual) [Pending], Lymphocytes % (Manual) [Pending], Platelet Estimate [Pending], Platelet Morphology [Pending], Sodium Level 137, Potassium Level 3.3L, Chloride Level 105, Carbon Dioxide Level 23, Anion Gap 9, Blood Urea Nitrogen 39H, Creatinine 2.5H, Estimat Glomerular Filtration Rate 21.8, Glucose Level 115H, Calcium Level 8.2L Height (Feet): 5 Height (Inches): 3.00 Weight (Pounds): 351 General Appearance: lethargic EENT: normal ENT inspection Neck: normal alignment Cardiovascular: normal peripheral pulses, normal rate, regular rhythm Respiratory/Chest: chest wall non-tender, decreased breath sounds Abdomen: normal bowel sounds, non tender, soft Extremities: normal inspection Edema: 2+ Arm (L), 2+ Arm (R), 2+ Leg (L), 2+ Leg (R), 2+ Pedal (L), 2+ Pedal ( R), 2+ Generalized Edema: mild edema Neurologic: motor weakness Skin: normal pigmentation, warm/dry Chauncey Fuentes DO Sep 09, 2018 13:29
[2018-09-09] MEDS ORDERED: NS 500ML ONE (17:33)
[2018-09-09 20:00] VITALS: BP 111/65
[2018-09-09] MEDS: Dyna-Hex 2% Top Sol 2oz TOPIC SCH (21:58)
[2018-09-10] VITALS: BP 111/60
[2018-09-10] MEDS: Morphine Sulfate 2mg/ml Inj IVP PRN ×4 (02:13→12:56)
[2018-09-10 04:00] VITALS: BP 126/79
[2018-09-10] MEDS: Lactulose 20gm/30ml UDC ORAL SCH ×3 (05:15→13:04)
[2018-09-10 06:17] LABS: HEMATOCRIT 25.4 % (37.0-47.0); HEMOGLOBIN 8.4 G/DL (12.0-16.0); MEAN CORPUSCULAR VOLUME 94 FL (80-99); PLATELET COUNT 89 K/UL (150-450); RED BLOOD COUNT 2.69 M/UL (4.20-5.40); RED CELL DISTRIBUTION WIDTH 17.8 % (11.6-14.8); WHITE BLOOD COUNT 11.8 K/UL (4.8-10.8)
[2018-09-10 06:23] LABS: ANION GAP 9 mmol/L (5-15); BLOOD UREA NITROGEN 36 mg/dL (7-18); CALCIUM 8.3 MG/DL (8.5-10.1); CARBON DIOXIDE 23 MMOL/L (21-32); CHLORIDE 106 MMOL/L (98-107); CREATININE 2.1 MG/DL (0.55-1.30); POTASSIUM 3.4 MMOL/L (3.5-5.1); SODIUM 138 MMOL/L (136-145)
[2018-09-10 08:00] VITALS: BP 114/79
--- NOTE | 2018-09-10 08:56 | Nephrology Progress Note ---
Assessment/Plan Assessment/Plan 1. ESRD- multifact ATN ( hypotension/intravasc vol dep/?hepatorenal/Anemia) - resolving. Cr continues to improve off HD. Cr down to 2.1 - DC permacath today - good UOP 2. Hypok+- replaced this am again as renal function improving 3. 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 GI Bleed/Anemia- per GI mgmt - prn blood tx Hgb <7 Subjective Date patient seen: Sep 10, 2018 Time patient seen: 08:54 ROS Limited/Unobtainable: No Constitutional: Reports: weakness Allergies: Coded Allergies: LORAZEPAM (Verified Allergy, Unknown, 05/21/18) PENICILLINS (Verified Allergy, Unknown, 05/21/18) Subjective Patient continues to improve renal function. No complaints Objective Last 24 Hour Vital Signs Date Time Temp Pulse Resp B/P (MAP) Pulse Ox O2 Delivery O2 Flow Rate FiO2 09/10/18 04:00 97.8 100 20 126/79 (95) 100 09/10/18 00:00 98.2 95 19 111/60 (77) 99 09/09/18 21:00 Room Air 09/09/18 20:00 98.0 95 18 111/65 (80) 98 09/09/18 19:13 97.2 09/09/18 12:00 97.2 94 19 113/70 (84) 100 09/09/18 09:00 Room Air Intake and Output 09/09/18 09/10/18 19:00 07:00 Intake Total 1255 ml 805 ml Output Total 600 ml 400 ml Balance 655 ml 405 ml Intake Oral 1100 ml 750 ml IV Total 155 ml 55 ml Output Urine Total 600 ml 400 ml # Bowel Movements 1 Laboratory Tests 09/10/18 05:00: White Blood Count 11.8H, Red Blood Count 2.69L, Hemoglobin 8.4L, Hematocrit 25.4L, Mean Corpuscular Volume 94, Mean Corpuscular Hemoglobin 31.1H, Mean Corpuscular Hemoglobin Concent 33.0, Red Cell Distribution Width 17.8H, Platelet Count 89L, Mean Platelet Volume 9.7, Neutrophils (%) (Auto) , Lymphocytes (%) (Auto) , Monocytes (%) (Auto) , Eosinophils (%) (Auto) , Basophils (%) (Auto) , Differential Total Cells Counted 100, Neutrophils % ( Manual) 76H, Lymphocytes % (Manual) 12L, Monocytes % (Manual) 9, Eosinophils % ( Manual) 2, Basophils % (Manual) 1, Band Neutrophils 0, Platelet Estimate DecreasedL, Platelet Morphology Normal, Hypochromasia 2+, Anisocytosis 1+, Spherocytes 1+, Sodium Level 138, Potassium Level 3.4L, Chloride Level 106, Carbon Dioxide Level 23, Anion Gap 9, Blood Urea Nitrogen 36H, Creatinine 2.1H, Estimat Glomerular Filtration Rate 26.6, Glucose Level 107H, Calcium Level 8.3L Height (Feet): 5 Height (Inches): 3.00 Weight (Pounds): 349 General Appearance: no apparent distress, alert EENT: normal ENT inspection Neck: normal alignment, supple Cardiovascular: normal rate, regular rhythm Respiratory/Chest: lungs clear, normal breath sounds Edema: 1+ Arm (L), 1+ Arm (R), 1+ Leg (L), 1+ Leg (R), 1+ Pedal (L), 1+ Pedal ( R), 1+ Generalized Amos Pinon MD Sep 10, 2018 08:55
[2018-09-10] MEDS ORDERED: Meloxicam 15 MG TAB ORAL SCH (09:00)
[2018-09-10] MEDS ORDERED: Lyrica 75mg cap ORAL SCH (09:00)
[2018-09-10] MEDS: Pantoprazole Inj IVP SCH (09:27)
[2018-09-10] MEDS: Meropenem 1 GM in NS 55 ML IVPB SCH (09:27)
[2018-09-10] MEDS ORDERED: Lidocaine 2% 20mg/ml/Epi 0.005mg/ml 20ml vial INJ SCH (11:00)
[2018-09-10 12:00] VITALS: BP 115/69
--- NOTE | 2018-09-10 13:51 | Diagnostic Imaging Report ---
Indication: Patient requires removal of a right permacath Findings: After the indications, procedure, risks, complications, and alternatives of the procedure were explained, written informed consent was obtained. The neck was prepped with alcohol. All elements of maximal sterile barrier technique were followed including usage of a cap, mask, sterile gown, sterile gloves, hand hygiene and a large sterile sheet. 1% lidocaine was used to anesthetize the skin. Sutures removed. The permacath was removed without incident. Manual pressure was held at the puncture site until hemostasis was achieved. There are no complications. Patient tolerated the procedure well. Images were obtained after the procedure showing complete removal of the catheter. Impression: Successful removal of a right jugular permacath.
[2018-09-10] MEDS ORDERED: MYLANTA II30 ML ORAL (14:09)
--- NOTE | 2018-09-10 14:42 | General Progress Note ---
Assessment/Plan Problem List: (1) Edema ICD Codes: R60.9 - Edema, unspecified SNOMED: 722621130, 317444227 (2) Anemia ICD Codes: D64.9 - Anemia, unspecified SNOMED: 721089989 (3) Alcoholic cirrhosis ICD Codes: K70.30 - Alcoholic cirrhosis of liver without ascites SNOMED: 255642246 (4) Esophageal varices ICD Codes: I85.00 - Esophageal varices without bleeding SNOMED: 22408026 (5) Leukocytosis ICD Codes: D72.829 - Elevated white blood cell count, unspecified SNOMED: 271787497, 456620268 (6) GI bleed ICD Codes: K92.2 - Gastrointestinal hemorrhage, unspecified SNOMED: 66180163 (7) LENI (acute kidney injury) ICD Codes: N17.9 - Acute kidney failure, unspecified SNOMED: 78389901 (8) Sepsis ICD Codes: A41.9 - Sepsis, unspecified organism SNOMED: 83152886 (9) Seizure ICD Codes: R56.9 - Unspecified convulsions SNOMED: 91714245 Status: stable, tolerating diet Assessment/Plan abx oe pulm tx transfuse prn gi heme f/u dialysis prn seizure control cbc bmp am promise ltach if clear Subjective Constitutional: Reports: weakness Allergies: Coded Allergies: LORAZEPAM (Verified Allergy, Unknown, 05/21/18) PENICILLINS (Verified Allergy, Unknown, 05/21/18) All Systems: reviewed and negative except above Subjective sleepy in bed Objective Last 24 Hour Vital Signs Date Time Temp Pulse Resp B/P (MAP) Pulse Ox O2 Delivery O2 Flow Rate FiO2 09/10/18 12:00 99.2 95 16 115/69 (84) 100 09/10/18 09:00 Room Air 09/10/18 08:00 97.1 91 15 114/79 (91) 100 09/10/18 04:00 97.8 100 20 126/79 (95) 100 09/10/18 00:00 98.2 95 19 111/60 (77) 99 09/09/18 21:00 Room Air 09/09/18 20:00 98.0 95 18 111/65 (80) 98 09/09/18 19:13 97.2 Intake and Output 09/09/18 09/10/18 19:00 07:00 Intake Total 1255 ml 805 ml Output Total 600 ml 400 ml Balance 655 ml 405 ml Intake Oral 1100 ml 750 ml IV Total 155 ml 55 ml Output Urine Total 600 ml 400 ml # Bowel Movements 1 Laboratory Tests 09/10/18 05:00: White Blood Count 11.8H, Red Blood Count 2.69L, Hemoglobin 8.4L, Hematocrit 25.4L, Mean Corpuscular Volume 94, Mean Corpuscular Hemoglobin 31.1H, Mean Corpuscular Hemoglobin Concent 33.0, Red Cell Distribution Width 17.8H, Platelet Count 89L, Mean Platelet Volume 9.7, Neutrophils (%) (Auto) , Lymphocytes (%) (Auto) , Monocytes (%) (Auto) , Eosinophils (%) (Auto) , Basophils (%) (Auto) , Differential Total Cells Counted 100, Neutrophils % ( Manual) 76H, Lymphocytes % (Manual) 12L, Monocytes % (Manual) 9, Eosinophils % ( Manual) 2, Basophils % (Manual) 1, Band Neutrophils 0, Platelet Estimate DecreasedL, Platelet Morphology Normal, Hypochromasia 2+, Anisocytosis 1+, Spherocytes 1+, Sodium Level 138, Potassium Level 3.4L, Chloride Level 106, Carbon Dioxide Level 23, Anion Gap 9, Blood Urea Nitrogen 36H, Creatinine 2.1H, Estimat Glomerular Filtration Rate 26.6, Glucose Level 107H, Calcium Level 8.3L Height (Feet): 5 Height (Inches): 3.00 Weight (Pounds): 349 General Appearance: lethargic EENT: normal ENT inspection Neck: normal alignment Cardiovascular: normal peripheral pulses, normal rate, regular rhythm Respiratory/Chest: chest wall non-tender, decreased breath sounds Abdomen: normal bowel sounds, non tender, soft Extremities: normal inspection Edema: 2+ Arm (L), 2+ Arm (R), 2+ Leg (L), 2+ Leg (R), 2+ Pedal (L), 2+ Pedal ( R), 2+ Generalized Edema: mild edema Neurologic: motor weakness Skin: normal pigmentation, warm/dry Chauncey Fuentes DO Sep 10, 2018 14:42
[2018-09-10] MEDS ORDERED: HIBICLENS118 ML TP (14:43)
[2018-09-10] MEDS ORDERED: LACTULOSE20 GM/301 ORAL (14:44)
[2018-09-10] MEDS ORDERED: PROTONIX IV40 MG IV (14:46)
[2018-09-10] MEDS ORDERED: MEROPENEM1 GM IV (14:46)
[2018-09-10] MEDS ORDERED: ZOFRAN 4 MG4 MG/2 ML IV (14:47)
[2018-09-10] MEDS ORDERED: XIFAXAN550 MG ORAL (14:48)
--- NOTE | 2018-09-10 15:07 | General Progress Note ---
Assessment/Plan Assessment/Plan # Thrombocytopenia. Baseline appears to be 50-80k. Is most likely related to underlying liver disease with e/o portal htn. Hx of ETOH use. She does have evidence of hepatic cirrhosis, with surface nodularity an increased echogenicity. Evidence of portal hypertension, with ascites, splenomegaly, and flow reversal within the main and right portal vein. Evidence of prior cholecystectomy. Negative for dilated ducts. Prior CT and US has been reviewed, hepatitis and hiv are both negative. --> Plt count has been improving. --> Peripheral smear ordered and is negative for blasts --> Abx and other meds have been reviewed. --> hold off heparin, asa, or plavix --> Transfuse plts if plt count >10k or if 20k and with fever, or >50k if bleeding --> Agree with lactulose and potential rifaximin for elev ammonia --> PLT Tx: 08/31 # Coagulopathy is likely related to underlying liver disease, liver us shows "Evidence of chronic liver disease with enlarged fatty liver and stigmata of portal hypertension including hepatofugal portal venous flow." --> no evidence of bleeding, hold off on tx unless bleeding is noted --> VIt K or ffp before a procedure # Anemia due to gastrointestinal bleed. Hemoglobin on admission 5-8 range, likely bleed related, ferritin is 1125 --> Gastroenterology is following. Appreciate recs. --> Hgb goal >7. Transfuse prn. --> 09/02: s/p EGD >> Esophageal varices, status post banding x7. # Anemia of chronic disease, multifactorial. Since admission hgb has consistently been 7-8.5 --> Previous w/u has been reviewed --> Will trend CBC daily --> Hgb goal above 7 --> Blood tx: 08/17,08/18, 08/19, 08/23, 08/25, 08/29, 08/31, 09/01, 09/02, # Acute kidney injury secondary to intravascular volume depletion along with ischemic acute tubular necrosis from hypotension. --> Nephro following. Appreciate recs. # Hyperkalemia secondary to renal insufficiency and gastrointestinal bleed. --> The patient was given Kayexalate. --> If low K, replete K as needed # Hepatic encephalopathy with liver failure secondary to alcoholic cirrhosis --> appreciated recs by Gastroenterology # Poor prognosis, SNF placement Greatly appreciate consultation! Subjective Constitutional: Denies: no symptoms, chills, diaphoresis, fever, malaise, weakness, other HEENT: Denies: no symptoms, eye pain, blurred vision, tearing, double vision, ear pain, ear discharge, nose pain, nose congestion, throat pain, throat swelling, mouth pain, mouth swelling, other Cardiovascular: Denies: no symptoms, chest pain, edema, irregular heart rate, lightheadedness, palpitations, syncope, other Respiratory: Denies: no symptoms, cough, orthopnea, shortness of breath, SOB with excertion, SOB at rest, sputum, stridor, wheezing, other Gastrointestinal/Abdominal: Denies: no symptoms, abdomen distended, abdominal pain, black stools, tarry stools, blood in stool, constipated, diarrhea, difficulty swallowing, nausea, poor appetite, poor fluid intake, rectal bleeding , vomiting, other Genitourinary: Denies: no symptoms, burning, discharge, frequency, flank pain, hematuria, incontinence, pain, urgency, other Neurologic/Psychiatric: Denies: no symptoms, anxiety, depressed, emotional problems, headache, numbness, paresthesia, pre-existing deficit, seizure, tingling, tremors, weakness, other Endocrine: Denies: no symptoms, excessive sweating, flushing, intolerance to cold, intolerance to heat, increased hunger, increased thirst, increased urine, unexplained weight gain, unexplained weight loss, other Hematologic/Lymphatic: Denies: no symptoms, anemia, easy bleeding, easy bruising, other Allergies: Coded Allergies: LORAZEPAM (Verified Allergy, Unknown, 05/21/18) PENICILLINS (Verified Allergy, Unknown, 05/21/18) Subjective Pt awake and alert. H/H stable, cr being monitored, less bleeding Objective Last 24 Hour Vital Signs Date Time Temp Pulse Resp B/P (MAP) Pulse Ox O2 Delivery O2 Flow Rate FiO2 09/10/18 12:00 99.2 95 16 115/69 (84) 100 09/10/18 09:00 Room Air 09/10/18 08:00 97.1 91 15 114/79 (91) 100 09/10/18 04:00 97.8 100 20 126/79 (95) 100 09/10/18 00:00 98.2 95 19 111/60 (77) 99 09/09/18 21:00 Room Air 09/09/18 20:00 98.0 95 18 111/65 (80) 98 09/09/18 19:13 97.2 Intake and Output 09/09/18 09/10/18 19:00 07:00 Intake Total 1255 ml 805 ml Output Total 600 ml 400 ml Balance 655 ml 405 ml Intake Oral 1100 ml 750 ml IV Total 155 ml 55 ml Output Urine Total 600 ml 400 ml # Bowel Movements 1 Laboratory Tests 09/10/18 05:00: White Blood Count 11.8H, Red Blood Count 2.69L, Hemoglobin 8.4L, Hematocrit 25.4L, Mean Corpuscular Volume 94, Mean Corpuscular Hemoglobin 31.1H, Mean Corpuscular Hemoglobin Concent 33.0, Red Cell Distribution Width 17.8H, Platelet Count 89L, Mean Platelet Volume 9.7, Neutrophils (%) (Auto) , Lymphocytes (%) (Auto) , Monocytes (%) (Auto) , Eosinophils (%) (Auto) , Basophils (%) (Auto) , Differential Total Cells Counted 100, Neutrophils % ( Manual) 76H, Lymphocytes % (Manual) 12L, Monocytes % (Manual) 9, Eosinophils % ( Manual) 2, Basophils % (Manual) 1, Band Neutrophils 0, Platelet Estimate DecreasedL, Platelet Morphology Normal, Hypochromasia 2+, Anisocytosis 1+, Spherocytes 1+, Sodium Level 138, Potassium Level 3.4L, Chloride Level 106, Carbon Dioxide Level 23, Anion Gap 9, Blood Urea Nitrogen 36H, Creatinine 2.1H, Estimat Glomerular Filtration Rate 26.6, Glucose Level 107H, Calcium Level 8.3L Height (Feet): 5 Height (Inches): 3.00 Weight (Pounds): 349 General Appearance: no apparent distress EENT: normal ENT inspection Neck: normal alignment Cardiovascular: normal rate Respiratory/Chest: chest wall non-tender Abdomen: non tender Extremities: non-tender Edema: mild edema Neurologic: oriented x 3 Skin: warm/dry Objective stahl, and rectal tube++ Michael Hernandez MD Sep 10, 2018 15:07
[2018-09-10 16:00] VITALS: BP 109/63
[2018-09-10] MEDS ORDERED: Cathflo Alteplase 2mg Inj INJ ONE (16:30)
--- NOTE | 2018-09-10 16:42 | Infectious Diseases Prog Note ---
Assessment/Plan Assessment/Plan Assessment/Plan The patient is a 38-year-old female with: Fever, Sp Probable sepsis, SP -Bcx neg Leukocytosis; SP -CXR: Pulmonary vascular congestion with increased interstitial markings , likely representing interstitial edema. This appears improved relative to the chest x-ray from 07/22/18 Urinary tract infection, 09/02 sp UCx: Kleb : Ucx: Kleb ; ucx ESBL K. pna ( R zosyn, S ertapenem), Citrobacter freundi (R ancef, I Impienem, S ertapenem) History of hepatitis panel and HIV serology negative. Diarrhea on lactulose GIB -s/p EGD 08/19: esophageal varices Seizures episodes 08/24 (?related to carbapenem) Acute renal insufficiency.; on HD -Renal US: unremarkable Thrombocytopenia S/p permacath placement 08/30,now w/ bleeding from site Encephalopathy, multifactorial, ongoin -. Alcoholic cirrhosis -. Esophageal varices PLAN: -Continue Merrem d# , ok to DC pt on current AB Rx to complete the course SP Vanco d# 4 09/05 SP Rocephin d# 3 -08/25 SP Ertapenem #7 -08/19 SP Cefepime and Flagyl #3 -.Monitor BMP -.Renal, GI f/u - seizure precautions - aspiration precautions Subjective Allergies: Coded Allergies: LORAZEPAM (Verified Allergy, Unknown, 05/21/18) PENICILLINS (Verified Allergy, Unknown, 05/21/18) Subjective afebrile Objective Vital Signs Last 24 Hour Vital Signs Date Time Temp Pulse Resp B/P (MAP) Pulse Ox O2 Delivery O2 Flow Rate FiO2 09/10/18 12:00 99.2 95 16 115/69 (84) 100 09/10/18 09:00 Room Air 09/10/18 08:00 97.1 91 15 114/79 (91) 100 09/10/18 04:00 97.8 100 20 126/79 (95) 100 09/10/18 00:00 98.2 95 19 111/60 (77) 99 09/09/18 21:00 Room Air 09/09/18 20:00 98.0 95 18 111/65 (80) 98 09/09/18 19:13 97.2 Height (Feet): 5 Height (Inches): 3.00 Weight (Pounds): 349 HEENT: anicteric Respiratory/Chest: no respiratory distress Cardiovascular: regular rhythm Abdomen: no organomegaly Laboratory Tests Test 09/10/18 05:00 White Blood Count 11.8 K/UL (4.8-10.8) H Red Blood Count 2.69 M/UL (4.20-5.40) L Hemoglobin 8.4 G/DL (12.0-16.0) L Hematocrit 25.4 % (37.0-47.0) L Mean Corpuscular Volume 94 FL (80-99) Mean Corpuscular Hemoglobin 31.1 PG (27.0-31.0) H Mean Corpuscular Hemoglobin Concent 33.0 G/DL (32.0-36.0) Red Cell Distribution Width 17.8 % (11.6-14.8) H Platelet Count 89 K/UL (150-450) L Mean Platelet Volume 9.7 FL (6.5-10.1) Neutrophils (%) (Auto) % (45.0-75.0) Lymphocytes (%) (Auto) % (20.0-45.0) Monocytes (%) (Auto) % (1.0-10.0) Eosinophils (%) (Auto) % (0.0-3.0) Basophils (%) (Auto) % (0.0-2.0) Differential Total Cells Counted 100 Neutrophils % (Manual) 76 % (45-75) H Lymphocytes % (Manual) 12 % (20-45) L Monocytes % (Manual) 9 % (1-10) Eosinophils % (Manual) 2 % (0-3) Basophils % (Manual) 1 % (0-2) Band Neutrophils 0 % (0-8) Platelet Estimate Decreased L Platelet Morphology Normal Hypochromasia 2+ Anisocytosis 1+ Spherocytes 1+ Sodium Level 138 MMOL/L (136-145) Potassium Level 3.4 MMOL/L (3.5-5.1) L Chloride Level 106 MMOL/L (98-107) Carbon Dioxide Level 23 MMOL/L (21-32) Anion Gap 9 mmol/L (5-15) Blood Urea Nitrogen 36 mg/dL (7-18) H Creatinine 2.1 MG/DL (0.55-1.30) H Estimat Glomerular Filtration Rate 26.6 mL/min (>60) Glucose Level 107 MG/DL (74-106) H Calcium Level 8.3 MG/DL (8.5-10.1) L Current Medications Medications (Trade) Dose Ordered Sig/Abner Route PRN Reason Start Time Stop Time Status Last Admin Dose Admin Al Hydroxide/Mg Hydroxide (Mylanta II) 30 ml Q6H PRN ORAL dyspepsia 09/02/18 20:27 09/27/18 20:26 Alteplase, Recombinant (Cathflo) 2 mg ONCE ONCE INJ 09/10/18 16:30 09/10/18 16:31 09/10/18 16:23 Chlorhexidine Gluconate (Sierra-Hex 2%) 1 applic DAILY@2000 TOPIC 09/02/18 20:00 09/18/18 19:59 09/09/18 21:58 Dextrose (Dextrose 50%) 25 ml Q30M PRN IV Hypoglycemia 09/02/18 20:28 09/23/18 20:27 Dextrose (Dextrose 50%) 50 ml Q30M PRN IV Hypoglycemia 09/02/18 20:28 09/16/18 20:27 Lactulose (Cephulac) 30 gm EVERY 6 HOURS ORAL 09/03/18 00:00 09/16/18 11:59 09/09/18 23:58 Lidocaine/ Epinephrine (Xylocaine 2%/ Epi MPF) 10 ml ONCE INJ 09/10/18 11:00 09/10/18 23:59 Meropenem 1 gm/ Sodium Chloride 55 ml @ 110 mls/hr Q12HR IVPB 09/05/18 20:00 09/15/18 00:00 09/10/18 09:27 Morphine Sulfate (Morphine Sulfate) 4 mg Q3H PRN IVP For Pain 09/07/18 17:15 09/14/18 17:14 09/10/18 12:56 Ondansetron HCl (Zofran) 4 mg Q6H PRN IVP Nausea & Vomiting 09/02/18 20:28 09/27/18 20:27 Pantoprazole (Protonix) 40 mg DAILY IVP 09/03/18 09:00 09/24/18 05:59 09/10/18 09:27 Rifaximin (Xifaxan) 550 mg EVERY 12 HOURS ORAL 09/07/18 09:00 09/14/18 08:59 09/10/18 09:27 Laz Monroy MD Sep 10, 2018 16:42
--- NOTE | 2018-09-11 14:59 | Discharge Summary ---
Discharge Summary Discharge Summary _ DATE OF ADMISSION: 08/17/2018 DATE OF DISCHARGE: 09/10/2018 REASON FOR ADMISSION: 38 years old female with history of alcoholic liver cirrhosis, alcohol dependency, esophageal varices, morbid obesity, presented from the intermediate facility with abdominal pain and hypotension. Upon evaluation patient was found to have severe anemia, renal failure, hypotension, electrolyte imbalance. Laboratory work up also revealed evidence of liver failure with coagulopathy, thrombocytopenia, elevated LFT and bilirubin. Hemoglobin 5.9, hematocrit 19.19.1. Platelet 47. . INR 1.4. Sodium 128, potassium 6.7, BUN 65, creatinine 6.7 Ammonia 99. WBC 12.6. Lactic acid 5.9. Urinalysis with evidence of UTI Total bilirubin 3.3, direct bilirubin 2.4. AST 84. Chest x-ray revealed pulmonary vascular congestion with increased interstitial markings . Troponin negative . EKG revealed sinus rhythm with first-degree AV Block, no ST changes. Patient admitted with diagnoses of sepsis,UTI ,severe anemia, esophageal varices, alcoholic cirrhosis, acute renal failure , encephalopathy. CONSULTANTS: pulmonary Dr. Burleson ID specialist Dr. Monroy GI specialist Dr. Rodriguez strategies analyst Dr. Pinon security team lead/oncologist Dr. Hernandez [facility]: Patient admitted to ICU. Patient started on octreotide drip , IV fluids and empiric antibiotics. Supplemental oxygen provided as needed to keep pulse oximetry above 92% , pulmonary toilet provided as needed. Patient had blood transfusion. Empiric antibiotic started .Patient undergone transfusion of total of 10 units of packed red blood cells. Patient was hypotensive. Blood pressure was supported with IV fluids, no need for pressors. Patient subsequently had upper endoscopy done on with finding of esophageal varices, status post banding 7. Patient with evidence of portal hypertensive gastropathy, but no evidence of gastric varices. Patient had four columns of grade 4 esophageal varices, s/p banding. Patient was initially kept NPO after procedure. Patient started on lactulose and Xifaxan. Ammonia level was trended, remained elevated. Portal hypertension was treated with propranolol. INR remained elevated despite vitamin K administration. Platelet count down to 17. Patient undergone transfusion of 1 unit of plateletpheresis. Patient was on PPI twice a day. Food Service Technician followed. Thrombocytopenia was most likely related to underlying liver disease with evidence of portal hypertension as well as history of alcohol abuse. Peripheral smear was negative for blasts. Patient was off all blood thinners, including heparin, aspirin and Plavix. Food Service Technician recommended transfuse platelets only if count less than 10 or less than 20 and evidence of bleeding . Anemia was secondary to GI bleeding as well as anemia of chronic disease. ID specialist closely followed. Urine culture revealed Klebsiella pneumonia ESBL and Citrobacter . Blood culture were negative. Repeated urine culture x 2 still reveled Klebsiella ESBL, and repeated blood culture x 2 were negative. Patient was on antibiotics as per ID recommendations. PICC line inserted on 08/27. Patient need to complete IV antibiotics at home . HIV test was negative. Hepatitis panel with hepatitis B immunity. Leukocytosis resolved , no fever . Chest x-ray revealed no acute findings. [employer] Teaching [employer] Teacher closely followed . Per strategies analyst, renal disease was multifactorial . Acute tubular necrosis was due to hypotension/intravascular volume depletion, possible hepatorenal syndrome and anemia. Acute tubular necrosis did not resolved , and patient started on hemodialysis . Initially hemodialysis provided via temporary hemodialysis catheter , placed by surgeon . Subsequently isiah-catheter was placed by interventional radiology on 08/30. Renal parameters and electrolytes were closely monitored, and electrolytes corrected as needed. Perma-catheter was removed on 09/10. Prior to discharge BUN 36 creatinine 2.1. Sodium and potassium corrected. Overall prognosis remains extremely poor. Patient stabilized and was discharged home with home health services to follow. 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 DISCHARGE INSTRUCTIONS: Patient was discharged home with home health services for IV antibiotics and PT/ OT services. Follow up with primary care provider in one week. I have been assigned to dictate discharge summary for this account. I was not involved in the patient's management. Dionne Childers NP Sep 11, 2018 14:59
== END 2018-09-10 18:11 | disposition home health service (06) | DRG 720 ==
LOC: EDBD 11:30 → EMR 11:55 → EDBEDREQ 12:05 → ICU 13:46 → EDBEDREQ 14:24 → 2W 08-22 06:20 → ICU 08-24 20:09 → 4E 08-28 20:55 → 2W 08-31 10:24 → 4E 09-02 19:15
PROC: 06L38CZ Occlusion of Esophageal Vein with Extraluminal Device, Via Natural or Artificial Opening Endoscopic (ICD-10-PCS; 2018-08-19)
PROC: 5A1D70Z Performance of Urinary Filtration, Intermittent, Less than 6 Hours Per Day (ICD-10-PCS; principal; 2018-08-20)
PROC: B543ZZA Ultrasonography of Right Jugular Veins, Guidance (ICD-10-PCS; 2018-08-20)
PROC: 05HM33Z Insertion of Infusion Device into Right Internal Jugular Vein, Percutaneous Approach (ICD-10-PCS; 2018-08-20)
PROC: 02HV33Z Insertion of Infusion Device into Superior Vena Cava, Percutaneous Approach (ICD-10-PCS; 2018-08-27)
PROC: B548ZZA Ultrasonography of Superior Vena Cava, Guidance (ICD-10-PCS; 2018-08-27)
PROC: 05HM33Z Insertion of Infusion Device into Right Internal Jugular Vein, Percutaneous Approach (ICD-10-PCS; 2018-08-30)
DX: A41.9 Sepsis, unspecified organism (principal); N17.0 Acute kidney failure with tubular necrosis; R57.8 Other shock; I85.11 Secondary esophageal varices with bleeding; E46 Unspecified protein-calorie malnutrition; I95.9 Hypotension, unspecified; E83.42 Hypomagnesemia; D68.9 Coagulation defect, unspecified; K76.6 Portal hypertension; I12.0 Hypertensive chronic kidney disease with stage 5 chronic kidney disease or end stage renal disease; Z68.44 Body mass index [BMI] 60.0-69.9, adult; N39.0 Urinary tract infection, site not specified; D64.9 Anemia, unspecified; N18.6 End stage renal disease; Z99.2 Dependence on renal dialysis; K70.30 Alcoholic cirrhosis of liver without ascites; F10.20 Alcohol dependence, uncomplicated; E66.9 Obesity, unspecified; K31.89 Other diseases of stomach and duodenum; E87.5 Hyperkalemia; K72.90 Hepatic failure, unspecified without coma; D69.6 Thrombocytopenia, unspecified; J18.9 Pneumonia, unspecified organism; R19.7 Diarrhea, unspecified; R56.9 Unspecified convulsions; E87.6 Hypokalemia
CPT/HCPCS: 36415; 36569; 36590; 71045; 74018; 76000; 76700; 76705; 76770; 76937; 80048; 80053; 80061; 80076; 80202; 81003; 82140; 82248; 82550; 82553; 82607; 82728; 82746; 82962; 83010; 83540; 83550; 83605; 83615; 83735; 83880; 84100; 84132; 84238; 84300; 84443; 85007; 85025; 85044; 85060; 85384; 85610; 85660; 85730; 86703; 86706; 86707; 86850; 86900; 86901; 86920; 87040; 87081; 87086; 87181; 93005; 94003; 94150; 94640; 94664; 94760; 96361; 96365; 96366; 96367; 96368; 96375; 99284; 99291; 99292; J1165; J2250; J8499; S0077